=== PATIENT | male | born 1960 | race Caucasian/White ===

== ENCOUNTER 2016-09-14 12:30 | Emergency (ER) | payer OTHER ==
[~2016-09-14] VITALS: Ht 177.8 cm; Wt 90.5 kg
[~2016-09-14 12:30] MED LIST: ASPI81TA11 PO; ATOR20TA15 PO; CYMB60CA PO; DILA4TAB2 PO; KETO0.02 EACH EYE; LANTUS2P SQ; LOSA25TA PO; LYRI75CA PO; METO25TA3 PO; NOVOLOGP2 SQ; PANT40TA3 PO; VENL75CA44 PO; XARE15TA PO
[2016-09-14 12:35] VITALS: BP 156/83; PULSE 85; RESP 16; TEMP 98; O2SAT 98
[2016-09-14] MEDS ORDERED: MAGN400T2 PO (12:49)
[2016-09-14 13:02] LABS: BASOPHIL # 0.2 TH/MM3 (0-0.2); BASOPHIL % 2.3 % (0.0-2.0); EOSINOPHIL # 0.1 TH/MM3 (0-0.4); EOSINOPHIL % 1.8 % (0.0-4.0); HEMATOCRIT 43.6 % (39.0-51.0); HEMO FLAGS DIFF FINAL; LYMPHOCYTE # 1.7 TH/MM3 (1.0-4.8); MEAN CELL VOLUME 87.4 FL (80.0-100.0); MEAN CORPUSCULAR HEMOGLOBIN 29.5 PG (27.0-34.0); MEAN CORPUSCULAR HGB CONC 33.7 % (32.0-36.0); MONO % 8.5 % (0.0-8.0); NEUT % 64.4 % (16.0-70.0); PLATELET COUNT 182 TH/MM3 (150-450); RED BLOOD COUNT 4.99 MIL/MM3 (4.50-5.90); RED CELL DISTRIBUTION WIDTH 13.1 % (11.6-17.2); WHITE BLOOD COUNT 7.6 TH/MM3 (4.0-11.0)
--- NOTE | 2016-09-14 13:04 | PD ---
HPI Chief Complaint: Bleeding Time Seen by Provider: 12:41 Travel History International Travel<30 days: No Contact w/Intl Traveler<30days: No Traveled to known affect area: No History of Present Illness HPI This patient was recently hospitalized for PE. He was started on Xarelto about 2 weeks ago. Today when he coughed he noticed there was some blood mixed in the phlegm. He also noticed that there was a bit of bright red blood on the toilet paper when he wiped after a bowel movement. He has no prior history of bleeding in either area in the past. No shortness of breath or chest pain or syncope. Symptoms severity is mild to moderate. No alleviating factors. Duration one day PFSH Past Medical History Hx Anticoagulant Therapy: Yes Heart Rhythm Problems: No Cancer: No Cardiovascular Problems: Yes High Cholesterol: Yes Chest Pain: Yes Congestive Heart Failure: No COPD: Yes Cerebrovascular Accident: Yes Diabetes: Yes Patient Takes Glucophage: No Diminished Hearing: No Endocrine: Yes GERD: Yes Genitourinary: No Hypertension: Yes Immune Disorder: No Implanted Vascular Access Dvce: No Neurologic: Yes Psychiatric: No Reproductive: No Respiratory: Yes (PULMONARY EMBOLISM) Pneumonia: Yes Thyroid Disease: No Tetanus Vaccination: Unknown Past Surgical History Abdominal Surgery: No Cardiac Surgery: No Ear Surgery: No Endocrine Surgery: No Eye Surgery: Yes Genitourinary Surgery: No Gynecologic Surgery: No Neurologic Surgery: No Oral Surgery: Yes Thoracic Surgery: No Other Surgery: Yes Social History Alcohol Use: No (QUIT 05/2016) Tobacco Use: No Substance Use: No Allergies-Medications (Allergen,Severity, Reaction): Coded Allergies: No Known Allergies (Unverified , 09/14/16) Reported Meds & Prescriptions Reported Meds & Active Scripts Active Xarelto (Rivaroxaban) 15 Mg Tab 15 Mg PO BID Aspirin EC (Aspirin) 81 Mg Tabdr 81 Mg PO DAILY Reported Magnesium Oxide 400 Mg Tab 400 Mg PO DAILY Pantoprazole (Pantoprazole Sodium) 40 Mg Tab 40 Mg PO DAILY Losartan (Losartan Potassium) 25 Mg Tab 50 Mg PO DAILY Atorvastatin (Atorvastatin Calcium) 20 Mg Tab 20 Mg PO DAILY Lyrica (Pregabalin) 75 Mg Cap 75 Mg PO BID Venlafaxine ER 24 HR (Venlafaxine HCl) 75 Mg Cap 75 Mg PO TID Lantus Inj (Insulin Glargine) 1,000 Unit/10 Ml Vial 45 Units SQ BID Novolog Inj (Insulin Aspart) 1,000 Unit/10 Ml Vial 0 SQ DIRECTED Sliding Scale as directed. Metoprolol Tartrate 25 Mg Tab 25 Mg PO BID Review of Systems General / Constitutional: No: Fever Eyes: No: Visual changes HENT: No: Headaches Cardiovascular: No: Chest Pain or Discomfort Respiratory: Positive: Cough, Hemoptysis, No: Shortness of Breath Gastrointestinal: Positive: Hematochezia, No: Abdominal Pain Genitourinary: No: Dysuria Musculoskeletal: No: Pain Skin: No Rash Neurologic: No: Weakness Psychiatric: No: Depression Endocrine: No: Polydipsia Hematologic/Lymphatic: No: Easy Bruising Physical Exam Narrative GENERAL: Well-nourished, well-developed patient in no apparent distress. SKIN: Warm and dry. HEAD: Atraumatic. Normocephalic. EYES: Pupils equal and round. No scleral icterus. No injection or drainage. ENT: No nasal bleeding or discharge. Mucous membranes pink and moist. NECK: Trachea midline. No JVD. CARDIOVASCULAR: Regular rate and rhythm. No murmur appreciated. RESPIRATORY: No accessory muscle use. Clear to auscultation. Breath sounds equal bilaterally. GASTROINTESTINAL: Abdomen soft, non-tender, nondistended. Hepatic and splenic margins not palpable. MUSCULOSKELETAL: No obvious deformities. No clubbing. No cyanosis. No edema. NEUROLOGICAL: Awake and alert. No obvious cranial nerve deficits. Motor grossly within normal limits. Normal speech. PSYCHIATRIC: Appropriate mood and affect; insight and judgment normal. Rectal: No external hemorrhoid or fissure Data Data Last Documented VS Vital Signs Date Time Temp Pulse Resp B/P Pulse Ox O2 Delivery O2 Flow Rate FiO2 09/14/16 12:42 96 Nasal Cannula 2 09/14/16 12:35 98.0 85 16 156/83 Orders Iv Access Insert/Monitor (09/14/16 12:44) Complete Blood Count With Diff (09/14/16 12:44) Labs Laboratory Tests Test 09/14/16 13:00 White Blood Count 7.6 TH/MM3 Red Blood Count 4.99 MIL/MM3 Hemoglobin 14.7 GM/DL Hematocrit 43.6 % Mean Corpuscular Volume 87.4 FL Mean Corpuscular Hemoglobin 29.5 PG Mean Corpuscular Hemoglobin 33.7 % Concent Red Cell Distribution Width 13.1 % Platelet Count 182 TH/MM3 Mean Platelet Volume 8.7 FL Neutrophils (%) (Auto) 64.4 % Lymphocytes (%) (Auto) 23.0 % Monocytes (%) (Auto) 8.5 % Eosinophils (%) (Auto) 1.8 % Basophils (%) (Auto) 2.3 % Neutrophils # (Auto) 5.0 TH/MM3 Lymphocytes # (Auto) 1.7 TH/MM3 Monocytes # (Auto) 0.6 TH/MM3 Eosinophils # (Auto) 0.1 TH/MM3 Basophils # (Auto) 0.2 TH/MM3 CBC Comment DIFF FINAL Differential Comment MDM Medical Decision Making Medical Screen Exam Complete: Yes Emergency Medical Condition: Yes Medical Record Reviewed: Yes Differential Diagnosis Medication side effect, PE, bronchitis Narrative Course I have reviewed the patient's electronic medical record. Reviewed his admission history and physical and discharge summary from PE hospitalization 2 weeks ago. His hemoglobin was 15 at the time IV placed CBC is hemoglobin of 14.7 Patient looks clinically well and minimally symptomatic. This will come down to a risk benefit analysis with the patient needing blood thinners with bilateral PE and having some blood loss issue. Since his PE his upper and lower bilateral what sounds extensive I don't feel he should stop his blood thinner based on this minimal blood loss. Of course if it worsens that could change. He should [facility]up with [facility] to discuss this and any alternative medications they will want to try instead. However any blood thinners going to have the same risks. So he is stable and discharged and will continue his blood thinner for now but should his bleeding intensify that plan may change Diagnosis Primary Impression: Hemoptysis Additional Impression: Bilateral pulmonary embolism Additional Instructions: The patient was advised to follow up with their physician and return if they worsen. Discussed bleeding issues with their physician Med/Other Pt SpecificInfo: Other Disposition: DISCHARGE HOME Condition: Stable Adolfo Ta MD Sep 14, 2016 13:04
== END 2016-09-14 13:54 | disposition home or self-care (01) ==
LOC: PHED 12:30
DX: R04.2 Hemoptysis (principal); I26.99 Other pulmonary embolism without acute cor pulmonale; E78.00 Pure hypercholesterolemia, unspecified; E11.9 Type 2 diabetes mellitus without complications; I10 Essential (primary) hypertension; Z79.01 Long term (current) use of anticoagulants; Z79.4 Long term (current) use of insulin
CPT/HCPCS: 85025

== ENCOUNTER 2016-10-30 10:27 | Inpatient (IN) | payer OTHER ==
[~2016-10-30] VITALS: Ht 177.8 cm; Wt 77.0 kg
[2016-10-30] VITALS (12 sets, daily range): BP systolic 121–149; BP diastolic 60–84; PULSE 74–96; RESP 18–20; TEMP 97.7–98.5; O2SAT 80–100
[~2016-10-30 10:27] MED LIST changes: -CYMB60CA PO; -DILA4TAB2 PO; -KETO0.02 EACH EYE; +MAGN400T2 PO
[2016-10-30] MEDS ORDERED: SODIUM CHLORIDE 0.9% FLUSH 5 ML FLUSH IVF PRN (10:45)
[2016-10-30] MEDS ORDERED: RESP: ALBUTEROL 2.5 MG/IPRATROPIUM 0.5 MG NEB (SCH) INH ONE (10:45)
--- NOTE | 2016-10-30 10:55 | PD ---
HPI Chief Complaint: Respiratory Distress Time Seen by Provider: 10:40 Travel History International Travel<30 days: No Contact w/Intl Traveler<30days: No Traveled to known affect area: No History of Present Illness HPI A 55-year-old man who presents to the emergency department sent from the [facility] for shortness of breath. Patient has a history of pneumonia, PE, diabetes, kidney disease. He was well until July when he was admitted for pneumonia. Similar was readmitted for bilateral PEs. States he had been doing well 12 for 5 days ago and so he started getting chest pain, no cough productive of brownish and green sputum, and feeling more poorly. He had fevers and chills. Symptoms been worsening over the past 3-4 days. They're gradual in onset. He had worsening shortness of breath during this time as well. No leg swelling. He did have one to 2 episodes of vomiting. He went to the [facility] patient was sent to the emergency department for further evaluation. He is currently taking Xarelto for recent diagnosis of pulmonary emboli. No known history of lung disease but smoked for 30 years.-pack-year History Past Medical History Narrative Medical Hypertension PE, on Xarelto Hep C Diabetes Chronic kidney disease History of CVA with residual balance issues Hyperlipidemia History of extensive tobacco use Social History Alcohol Use: No (QUIT 05/2016) Tobacco Use: No Allergies-Medications (Allergen,Severity, Reaction): Coded Allergies: No Known Allergies (Unverified , 10/30/16) Reported Meds & Prescriptions Reported Meds & Active Scripts Active Xarelto (Rivaroxaban) 15 Mg Tab 15 Mg PO BID Aspirin EC (Aspirin) 81 Mg Tabdr 81 Mg PO DAILY Reported Magnesium Oxide 400 Mg Tab 400 Mg PO DAILY Pantoprazole (Pantoprazole Sodium) 40 Mg Tab 40 Mg PO DAILY Losartan (Losartan Potassium) 25 Mg Tab 50 Mg PO DAILY Atorvastatin (Atorvastatin Calcium) 20 Mg Tab 20 Mg PO DAILY Lyrica (Pregabalin) 75 Mg Cap 75 Mg PO BID Venlafaxine ER 24 HR (Venlafaxine HCl) 75 Mg Cap 75 Mg PO TID Lantus Inj (Insulin Glargine) 1,000 Unit/10 Ml Vial 45 Units SQ BID Novolog Inj (Insulin Aspart) 1,000 Unit/10 Ml Vial 0 SQ DIRECTED Sliding Scale as directed. Metoprolol Tartrate 25 Mg Tab 25 Mg PO BID Review of Systems Except as stated in HPI: all other systems reviewed are Neg Physical Exam Narrative GENERAL: Well-appearing 55-year-old man, little bit labored in his breathing, nontoxic appearing. SKIN: Warm and dry. NECK: Trachea midline. No JVD. CARDIOVASCULAR: Regular rate and rhythm. No murmur appreciated. RESPIRATORY: Coarse wet rhonchi throughout the posterior lung staley. No real wheezing. GASTROINTESTINAL: Abdomen soft, non-tender, nondistended. Hepatic and splenic margins not palpable. MUSCULOSKELETAL: No obvious deformities. Clubbing of his fingernails. No significant edema in his legs. NEUROLOGICAL: Awake and alert. No obvious cranial nerve deficits. Motor grossly within normal limits. Normal speech. PSYCHIATRIC: Appropriate mood and affect; insight and judgment normal. Data Data Last Documented VS Vital Signs Date Time Temp Pulse Resp B/P Pulse Ox O2 Delivery O2 Flow Rate FiO2 10/30/16 11:10 100 Nasal Cannula 4 10/30/16 10:40 74 18 10/30/16 10:32 97.7 Orders Complete Blood Count With Diff (10/30/16 10:41) Comprehensive Metabolic Panel (10/30/16 10:41) B-Type Natriuretic Peptide (10/30/16 10:41) Act Partial Throm Time (Ptt) (10/30/16 10:41) Prothrombin Time / Inr (Pt) (10/30/16 10:41) Troponin I (10/30/16 10:41) Influenzae A/B Antigen (10/30/16 10:41) Blood Culture (10/30/16 10:41) Iv Access Insert/Monitor (10/30/16 10:41) Electrocardiogram (10/30/16 10:41) Ecg Monitoring (10/30/16 10:41) Oximetry (10/30/16 10:41) Oxygen Administration (10/30/16 10:41) Sodium Chloride 0.9% Flush (Ns Flush) (10/30/16 10:45) Albuterol-Ipratropium Neb (Duoneb Neb) (10/30/16 10:45) Lactic Acid Sepsis Protocol (10/30/16 10:41) Chest, Single Ap (10/30/16 ) Ceftriaxone Inj (Rocephin Inj) (10/30/16 13:15) Azithromycin Inj (Zithromax Inj) (10/30/16 13:15) Furosemide Inj (Lasix Inj) (10/30/16 13:15) Ketorolac Inj (Toradol Inj) (10/30/16 13:30) Labs Laboratory Tests Test 10/30/16 10/30/16 10:45 13:13 Prothrombin Time 11.7 SEC Prothromb Time International 1.1 RATIO Ratio Activated Partial 36.4 SEC Thromboplast Time Sodium Level 136 MEQ/L Potassium Level 4.3 MEQ/L Chloride Level 99 MEQ/L Carbon Dioxide Level 29.8 MEQ/L Anion Gap 7 MEQ/L Blood Urea Nitrogen 23 MG/DL Creatinine 1.17 MG/DL Estimat Glomerular Filtration 64 ML/MIN Rate Random Glucose 161 MG/DL Lactic Acid Level 2.0 mmol/L Calcium Level 8.0 MG/DL Total Bilirubin 0.6 MG/DL Aspartate Amino Transf 17 U/L (AST/SGOT) Alanine Aminotransferase 19 U/L (ALT/SGPT) Alkaline Phosphatase 70 U/L Troponin I 0.48 NG/ML B-Type Natriuretic Peptide 112 PG/ML Total Protein 6.5 GM/DL Albumin 2.8 GM/DL White Blood Count 4.8 TH/MM3 Red Blood Count 4.58 MIL/MM3 Hemoglobin 13.2 GM/DL Hematocrit 40.0 % Mean Corpuscular Volume 87.3 FL Mean Corpuscular Hemoglobin 28.9 PG Mean Corpuscular Hemoglobin 33.1 % Concent Red Cell Distribution Width 14.7 % Platelet Count 120 TH/MM3 Mean Platelet Volume 9.7 FL Neutrophils (%) (Auto) 72.1 % Lymphocytes (%) (Auto) 14.0 % Monocytes (%) (Auto) 11.3 % Eosinophils (%) (Auto) 2.1 % Basophils (%) (Auto) 0.5 % Neutrophils # (Auto) 3.5 TH/MM3 Lymphocytes # (Auto) 0.7 TH/MM3 Monocytes # (Auto) 0.5 TH/MM3 Eosinophils # (Auto) 0.1 TH/MM3 Basophils # (Auto) 0.0 TH/MM3 CBC Comment DIFF FINAL Differential Comment MDM Medical Decision Making Medical Screen Exam Complete: Yes Emergency Medical Condition: Yes Interpretation(s) My review of EKG: Sinus rhythm at a rate of 73, normal axis, lateral T wave inversions, no definite evidence of acute ischemia. LABS: CBC INR 1.1 CMP generally unremarkable. Troponin 0.48 BNP 112 Lactate 2.0 CXR: Left lower lobe pneumonia Differential Diagnosis Pneumonia, underlying lung disease or COPD, PE, other Narrative Course Medical decision making INITIAL: 55-year-old man with chest pain productive cough fevers chills suggestive of pneumonia. Increased shortness of rale hypoxia likely pneumonia with him, and a known PE. He's on his Xarelto. We'll check labs, x-ray, cultures, bronchodilator, reassess. Diagnosis Primary Impression: Pneumonia Qualified Code: J18.1 - Pneumonia of left lower lobe due to infectious organism Garett Perry MD Oct 30, 2016 10:54
[2016-10-30 11:16] LABS: APTT (PATIENT) 36.4 SEC (24.3-30.1); INTERNATIONAL NORMALIZED RATIO 1.1 RATIO; PROTHROMBIN TIME - PATIENT 11.7 SEC (9.8-11.6)
[2016-10-30 11:25] LABS: ANION GAP 7 MEQ/L (5-15); AST (GOT) 17 U/L (15-37); BICARBONATE 29.8 MEQ/L (21.0-32.0); BLOOD UREA NITROGEN 23 MG/DL (7-18); CHLORIDE 99 MEQ/L (98-107); GLOMERULAR FILTRATION RATE 64 ML/MIN (>89); POTASSIUM 4.3 MEQ/L (3.5-5.1); SODIUM (NA) 136 MEQ/L (136-145)
[2016-10-30 11:29] LABS: ALKALINE PHOSPHATASE 70 U/L (45-117); ALT (GPT) 19 U/L (12-78); TOTAL BILIRUBIN ADULT 0.6 MG/DL (0.2-1.0)
--- NOTE | 2016-10-30 13:12 | RADRPT ---
EXAM DATE/TIME: 10/30/2016 11:19 [facility] COMPARISON: Prior study 08/02/16, use for comparison. INDICATIONS: Shortness of breath. MEDICAL HISTORY: Hypertension. Pulmonary embolism SURGICAL HISTORY: None. ENCOUNTER: Initial ACUITY: 4 - 6 days PAIN SCORE: 3/10 LOCATION: Bilateral chest FINDINGS: A single view of the chest demonstrates previous left clavicular fracture fixation. There is scleros is left humeral head consistent with avascular necrosis. There is perihilar vascular congestion wors e since the August exam. There is no focal infiltrate or pneumothorax. CONCLUSION: Definite pulmonary vascular congestion worse since August 2016. Garett Layton MD on October 30, 2016 at 12:58 Board Certified Radiologist. This report was verified electronically.
[2016-10-30] MEDS ORDERED: cefTRIAXone INJ 1,000 MG in SODIUM CHLORIDE 0.9% INJ 100 ML IV ONE (13:15)
[2016-10-30] MEDS ORDERED: AZITHROMYCIN INJ 500 MG in SODIUM CHLOR 0.9% 250 ML INJ 250 ML IV ONE (13:15)
[2016-10-30] MEDS ORDERED: FUROSEMIDE 20 MG/2 ML VIAL IV PUSH ONE (13:15)
[2016-10-30] MEDS ORDERED: KETOROLAC TROMETHAMINE 30 MG/ML (IVP) VIAL IVP ONE (13:30)
[2016-10-30 13:34] LABS: AUTOMATED NEUTROPHIL # 3.5 TH/MM3 (1.8-7.7); BASOPHIL % 0.5 % (0.0-2.0); EOSINOPHIL # 0.1 TH/MM3 (0-0.4); EOSINOPHIL % 2.1 % (0.0-4.0); HEMO FLAGS DIFF FINAL; LYMPHOCYTE # 0.7 TH/MM3 (1.0-4.8); MEAN CELL VOLUME 87.3 FL (80.0-100.0); MEAN CORPUSCULAR HEMOGLOBIN 28.9 PG (27.0-34.0); MEAN CORPUSCULAR HGB CONC 33.1 % (32.0-36.0); MONO % 11.3 % (0.0-8.0); NEUT % 72.1 % (16.0-70.0); PLATELET COUNT 120 TH/MM3 (150-450); RED BLOOD COUNT 4.58 MIL/MM3 (4.50-5.90); RED CELL DISTRIBUTION WIDTH 14.7 % (11.6-17.2); WHITE BLOOD COUNT 4.8 TH/MM3 (4.0-11.0)
[2016-10-30] MEDS ORDERED: SODIUM CHLOR 0.9% 1000 ML INJ 1,000 ML IV SCH (14:27)
[2016-10-30] MEDS ORDERED: SODIUM CHLORIDE 0.9% FLUSH 5 ML FLUSH FLUSH PRN (14:30)
[2016-10-30] MEDS ORDERED: NALOXONE HCL 0.4 MG/ML AMP IV PRN (14:30)
[2016-10-30] MEDS ORDERED: VANCOMYCIN INJ 1,000 MG in SODIUM CHLOR 0.9% 250 ML INJ 250 ML IV SCH (14:30)
[2016-10-30] MEDS: DOCUSATE SODIUM 100 MG CAP PO SCH (14:30)
[2016-10-30] MEDS ORDERED: BISACODYL 10 MG SUPP PR PRN (14:30)
[2016-10-30] MEDS ORDERED: DEXTROSE 50% IN WATER 50 ML VIAL(D50) IV PUSH PRN (14:30)
[2016-10-30] MEDS ORDERED: PIPERACIL-TAZO 3.375 GM PREMIX 50 ML IV SCH (14:30)
[2016-10-30] MEDS ORDERED: GLUCAGON 1 MG/ML VIAL OTHER PRN (14:30)
[2016-10-30] MEDS ORDERED: Vancomycin Consult Pharmacy 1 EA OTHER SCH (14:30)
--- NOTE | 2016-10-30 14:57 | RADRPT ---
EXAM DATE/TIME: 10/30/2016 14:47 [facility] COMPARISON: No previous studies available for comparison. INDICATIONS : Patient has been constipated for one week and has felt bloated. MEDICAL HISTORY : Hypertension. Chronic obstructive pulmonary disease. Hypercholesterolemia. SURGICAL HISTORY : None. ENCOUNTER: Initial ACUITY: 1 week PAIN SCORE: 5/10 LOCATION: Abdomen. FINDINGS: Supine view of the abdomen was performed. The abdominal bowel gas pattern is normal. No abnormal ma sses, calcifications, or organomegaly is seen. The osseous structures are unremarkable. CONCLUSION: Normal examination. Bony prominence of the right pubic symphysis Garett Layton MD on October 30, 2016 at 14:56 Board Certified Radiologist. This report was verified electronically.
[2016-10-30] MEDS ORDERED: IOHEXOL 350 MG/ML 10 ML VIAL (for RAD DIAG) IV ONE (15:04)
--- NOTE | 2016-10-30 15:04 | HHI.HP ---
[facility] Ad[facility] Diagnosis pulmonary edema, pneumonia, rule out PE Diagnoses: Chief Complaint: Cough and chest pain Travel History International Travel<30 Days: No Contact w/Intl Traveler <30 Da: No Traveled to Known Affected Are: No History of Present Illness This is a 55-year-old male with a clinical history which includes hypertension, diabetes with diabetic neuropathy, hyperlipidemia, carpal tunnel syndrome, recent pneumonia August 2016 and recent pulmonary embolism August 2016. Patient persists emergency department today with reports of congestion and cough which began gradually on Saturday night into Saturday. Cough is productive of yellow/green sputum. Patient reports he believes he's had subjective fevers on Saturday but does not have a thermometer at home. Patient reports that he has left lower chest pain worse with coughing. Patient also has midsternal chest pain described as a ice pick sensation at rest and with cough. Patient does report diaphoresis, nausea and denies sweats with these symptoms. Patient reports he is fatigued more easily over the past few days and does report slight dizziness with standing or changing positions rapidly. Patient did have musculoskeletal pain with palpation of chest. Patient noted he lives alone and his by mouth intake is, "not that great ." Patient cannot remember the last bowel movement and does note abdominal distention/bloating. Chest x-ray upon arrival to the emergency department reveals ulnar vascular congestion worse since August 2017 since consistent with pneumonia. Review of Systems Except as stated in HPI: all other systems reviewed are Neg Past Family Social History Past Medical History Hypertension Diabetes with diabetic neuropathy Hyperlipidemia Likely COPDwith history of smoking for at least 30 years. Stated he quit 10 months ago. CVAwith residual left-sided weakness Carpal tunnel syndrome Past Surgical History Left rotator cuff and shoulder surgery Left hip surgery Reported Medications Xarelto (Rivaroxaban) 15 Mg Tab 15 Mg PO BID Aspirin EC (Aspirin) 81 Mg Tabdr 81 Mg PO DAILY Magnesium Oxide 400 Mg Tab 400 Mg PO DAILY Pantoprazole (Pantoprazole Sodium) 40 Mg Tab 40 Mg PO DAILY Losartan (Losartan Potassium) 25 Mg Tab 50 Mg PO DAILY Atorvastatin (Atorvastatin Calcium) 20 Mg Tab 20 Mg PO DAILY Lyrica (Pregabalin) 75 Mg Cap 75 Mg PO BID Venlafaxine ER 24 HR (Venlafaxine HCl) 75 Mg Cap 75 Mg PO TID Lantus Inj (Insulin Glargine) 1,000 Unit/10 Ml Vial 45 Units SQ BID Novolog Inj (Insulin Aspart) 1,000 Unit/10 Ml Vial 0 SQ DIRECTED Sliding Scale as directed. Metoprolol Tartrate 25 Mg Tab 25 Mg PO BID Allergies: Coded Allergies: No Known Allergies (Unverified , 10/30/16) Active Ordered Medications Current Medications Medications (Trade) Dose Ordered Sig/Dario Route Start Time Stop Time Status Last Admin (NS Flush) 2 ml UNSCH PRN IVF 10/30/16 10:45 (Ecotrin Ec) 81 mg DAILY PO 10/31/16 09:00 (Lipitor) 20 mg DAILY PO 10/31/16 09:00 (Mag-Ox) 400 mg DAILY PO 10/31/16 09:00 (Protonix) 40 mg DAILY PO 10/31/16 09:00 (Lyrica) 75 mg BID PO 10/30/16 21:00 (Xarelto) 15 mg BID PO 10/30/16 21:00 (Effexor Xr) 75 mg TID PO 10/30/16 18:00 UNV (Cozaar) 25 mg DAILY PO 10/31/16 09:00 (Lopressor) 12.5 mg Q12HR PO 10/30/16 21:00 (D50w (Vial) Inj) 25 ml UNSCH PRN IV PUSH 10/30/16 14:30 (Glucagon Inj) 1 mg UNSCH PRN OTHER 10/30/16 14:30 Family History Several family members with diabetes Brother with prostate cancer Social History Used to smoke cigarettes and quit about 10 months ago. Stated he smoked for more than 30 years most of his life. Denies any alcohol abuse. Stated he quit in 2010. Denies any drug abuse Physical Exam Vital Signs Vital Signs Date Time Temp Pulse Resp B/P Pulse Ox O2 Delivery O2 Flow Rate FiO2 10/30/16 14:28 86 18 121/60 94 Nasal Cannula 4 10/30/16 14:18 18 10/30/16 11:10 100 Nasal Cannula 4 10/30/16 11:10 93 Nasal Cannula 4 10/30/16 11:03 97 Nasal Cannula 3.00 10/30/16 10:40 74 18 93 Nasal Cannula 4 10/30/16 10:32 97.7 74 18 90 Physical Exam GENERAL: This is a well-nourished, well-developed patient, in no apparent distress. SKIN: No rashes, ecchymoses or lesions. Cool and dry. HEAD: Atraumatic. Normocephalic. No temporal or scalp tenderness. EYES: Extraocular motions intact. No scleral icterus. No injection or drainage. CARDIOVASCULAR: Regular rate and rhythm without murmurs, gallops, or rubs. RESPIRATORY: Bilateral basilar crackles GASTROINTESTINAL: Abdomen soft, mild tender to palpation moistly in the LLQ, distended. MUSCULOSKELETAL: Extremities without clubbing, cyanosis, or edema. No joint tenderness, effusion, or edema noted. No calf tenderness. Negative Homans sign bilaterally. NEUROLOGICAL: Awake and alert. No focal deficits. Motor and sensory grossly within normal limits. Five out of 5 muscle strength in all muscle groups. Normal speech. Laboratory Laboratory Tests Test 10/30/16 10/30/16 10:45 13:13 Prothrombin Time 11.7 Prothromb Time International 1.1 Ratio Activated Partial 36.4 Thromboplast Time Sodium Level 136 Potassium Level 4.3 Chloride Level 99 Carbon Dioxide Level 29.8 Anion Gap 7 Blood Urea Nitrogen 23 Creatinine 1.17 Estimat Glomerular Filtration 64 Rate Random Glucose 161 Lactic Acid Level 2.0 Calcium Level 8.0 Total Bilirubin 0.6 Aspartate Amino Transf 17 (AST/SGOT) Alanine Aminotransferase 19 (ALT/SGPT) Alkaline Phosphatase 70 Troponin I 0.48 B-Type Natriuretic Peptide 112 Total Protein 6.5 Albumin 2.8 White Blood Count 4.8 Red Blood Count 4.58 Hemoglobin 13.2 Hematocrit 40.0 Mean Corpuscular Volume 87.3 Mean Corpuscular Hemoglobin 28.9 Mean Corpuscular Hemoglobin 33.1 Concent Red Cell Distribution Width 14.7 Platelet Count 120 Mean Platelet Volume 9.7 Neutrophils (%) (Auto) 72.1 Lymphocytes (%) (Auto) 14.0 Monocytes (%) (Auto) 11.3 Eosinophils (%) (Auto) 2.1 Basophils (%) (Auto) 0.5 Neutrophils # (Auto) 3.5 Lymphocytes # (Auto) 0.7 Monocytes # (Auto) 0.5 Eosinophils # (Auto) 0.1 Basophils # (Auto) 0.0 CBC Comment DIFF FINAL Differential Comment Date/Time Procedure Status Source Growth 10/30/16 10:47 Influenza Types A,B Antigen (GUANACO) - Final Complete Nasal Washing NEGATIVE FOR FLU A AND B ANTIGEN.... 10/30/16 10:45 Aerobic Blood Culture Received Blood Peripheral Pending 10/30/16 10:45 Anaerobic Blood Culture Received Blood Peripheral Pending Result Diagram: 10/30/16 1313 10/30/16 1045 Imaging Last Impressions Chest X-Ray 10/30/16 0000 Signed Impressions: Service Date/Time: Sunday, October 30, 2016 11:19 - CONCLUSION: Definite pulmonary vascular congestion worse since August 2016. Garett Layton MD Assessment and Plan Assessment and Plan This is a 55-year-old male with a clinical history which includes hypertension, diabetes with diabetic neuropathy, hyperlipidemia, carpal tunnel syndrome, recent pneumonia August 2016 and recent pulmonary embolism August 2016. Patient presents to emergency department today with reports of congestion and cough which began gradually on Saturday night into Saturday. Patient reports he believes he's had subjective fevers on Saturday but does not have a thermometer at home. Patient reports that he has left lower chest pain worse with coughing. Patient also has midsternal chest pain described as a ice pick sensation at rest and with cough. Chest x-ray upon arrival to the emergency department reveals ulnar vascular congestion worse since August 2017 since consistent with pneumonia. Patient also had elevated troponin mildly elevated troponin 0.48 Pneumonia The patient was given Rocephin and azithromycin in the emergency department. CT showed left upper airspace disease. - will start vancomycin and Zosyn with pharmacy consulted to dose vancomycin as he was recently hospitalized with pneumonia. - Sputum culture ordered and pending. Follow blood culture data. - Duonebs every 6 hours while awake and as needed. - antitussives as needed. Chest pain with mildly elevated troponin Troponin elevated at 0.58- possibly demand ischemia in the setting of pneumonia. The pt has had elevated trops in the past s/t pneumonia. EKG reveals sinus rhythm with inverted T waves in V6 and slight ST depression. Recent cardiac echocardiogram 08/29/2016 shows EF 55-60%. - Serial troponins. - Continuous telemetry. - cardiology consult pending. Diabetes mellitus insulin-dependent Patient takes Lantus 45 units twice a day at home. Hemoglobin A1c 08/03/2016 9.3% . - will decrease to Levemir 25 units twice a day. - Accu-Cheks before meals at bedtime with low-dose sliding scale insulin coverage. Hypertension Patient reports his blood pressure at home has been running low systolic of 100 and recently had his blood pressure medication increased. - Will restart losartan 25 mg daily and metoprolol at 12.5 mg twice a day. - Monitor vital signs. History of pulmonary venous embolism CTA negative for PE. - continue Xarelto. DVT prophylaxis patient is on Xarelto Discussed with ER provider, RN and patient Written by Mirian Thompson, acting as scribe for Dr. Nick on 10/30/16 at 14:55. Physician Certification 2 Midnight Certification Type: Admission for Inpatient Services Order for Inpatient Services The services are ordered in accordance with Medicare regulations or non- Medicare payer requirements, as applicable. In the case of services not specified as inpatient-only, they are appropriately provided as inpatient services in accordance with the 2-midnight benchmark. Estimated LOS (days): 4 days is the estimated time the patient will need to remain in the hospital, assuming treatment plan goals are met and no additional complications. Post-Hospital Plan: Home Notes: The documentation accurately reflects the work performed [id number] by me on at 14:55. Mirian Thompson Oct 30, 2016 15:04 Samir Nick DO Oct 30, 2016 18:15
--- NOTE | 2016-10-30 15:09 | RADRPT ---
EXAM DATE/TIME: 10/30/2016 14:54 [facility] COMPARISON: CT PULMONARY ANGIOGRAM, August 28, 2016, 11:05. INDICATIONS : Shortness of breath and chest pain with cough. IV CONTRAST: 80 cc Omnipaque 350 (iohexol) IV RADIATION DOSE: 23.24 CTDIvol (mGy) MEDICAL HISTORY : Cardiovascular disease. Cerebrovascular disease. Hypertension. SURGICAL HISTORY : None. ENCOUNTER: Initial ACUITY: 4 - 6 days PAIN SCALE: 5/10 LOCATION: chest TECHNIQUE: Volumetric scanning of the chest was performed using a pulmonary embolism protocol MIP images were re constructed. Using automated exposure control and adjustment of the mA and/or kV according to patien t size, radiation dose was kept as low as reasonably achievable to obtain optimal diagnostic quality images. FINDINGS: PULMONARY ARTERIES: No filling defects are seen in the pulmonary arteries through the segmental level. LUNGS: There is an infiltrate in the left upper lobe, possible pneumonia. PLEURAE: There is no pleural thickening or pleural effusion. MEDIASTINUM: There is good visualization of the great vessels of the middle mediastinum. No evidence of mediastin al or hilar adenopathy/mass. MUSCULOSKELETAL: Within normal limits for patient age. MISCELLANEOUS: The visualized upper abdominal organs demonstrate no acute abnormality. CONCLUSION: The multiple pulmonary emboli seen in August have completely resolved. I don't see any residual emb tony on today's exam. There is new airspace disease in the left upper lobe possible pneumonia. Garett Layton MD on October 30, 2016 at 15:07 Board Certified Radiologist. This report was verified electronically.
[2016-10-30] MEDS: PIPERACIL-TAZO 4.5 GM PREMIX 100 ML IV SCH ×2 (16:45→23:05)
[2016-10-30] MEDS: VANCOMYCIN INJ 1,250 MG in SODIUM CHLOR 0.9% 250 ML INJ 250 ML IV SCH (17:56)
[2016-10-30] MEDS: INSULIN ASPART SUPPLEMENTAL SCALE SQ SCH ×2 (17:58→23:09)
[2016-10-30] MEDS: guaiFENesin/CODEINE SYRUP 200 MG/20 MG/10 ML CUP PO PRN (18:31)
[2016-10-30] MEDS: RESP: ALBUTEROL 2.5 MG/IPRATROPIUM 0.5 MG NEB (SCH) NEB (20:22)
[2016-10-30] MEDS: INSULIN DETEMIR 100 UNITS/ML VIAL SQ SCH (23:05)
[2016-10-30] MEDS: SODIUM CHLORIDE 0.9% FLUSH 5 ML FLUSH FLUSH SCH (23:05)
[2016-10-30] MEDS: METOPROLOL TARTRATE 25 MG TAB PO SCH (23:06)
[2016-10-30] MEDS: RIVAROXABAN 15 MG TAB PO SCH (23:06)
[2016-10-30] MEDS: PREGABALIN 75 MG CAP PO SCH (23:06)
[2016-10-30] MEDS: RESP: ALBUTEROL 2.5 MG/IPRATROPIUM 0.5 MG NEB (PRN) NEB (23:39)
[2016-10-31] VITALS (17 sets, daily range): BP systolic 112–162; BP diastolic 60–83; PULSE 78–101; RESP 21–33; TEMP 97.8–102; O2SAT 90–98
[2016-10-31] MEDS ORDERED: FUROSEMIDE 40 MG/4 ML VIAL IV PUSH ONE ×2 (00:15→01:15)
[2016-10-31] MEDS ORDERED: FUROSEMIDE 40 MG/4 ML VIAL ONE (00:16)
[2016-10-31 00:40] LABS: BLOOD GAS CARBOXYHEMOGLOBIN 2.4 % (0-4); BLOOD GAS HCO3 25 mmol/L (22-26); BLOOD GAS METHEMOGLOBIN 2.1 % (0-2); BLOOD GAS O2 HGB SATURATION 88 % (90-100); BLOOD GAS OXYGEN CONTENT 17.7 Vol % (12.0-20.0); BLOOD GAS PCO2 45 mmHg (38-42); BLOOD GAS PO2 67 mmHG (61-120); BLOOD GAS TOTAL HGB 14.2 G/DL (12.0-16.0); TEMP CORR TO 98.6
[2016-10-31 00:42] LABS: CRITICAL VALUE YES
[2016-10-31 00:43] LABS: DRAW SITE RT RADIAL; NUMBER OF ARTERIAL PUNCTURES 1; STAT YES; ULNAR PULSE PRESENT
--- NOTE | 2016-10-31 00:47 | HHI.FPPN ---
Addendum to progress note ADDENDUM Reason for addendum: Additonal documentation Additional information BEAR NOTE Subjective: Call center notified team of [facility] at 12:20pm. Dr. Augustin and Dr. Horowitz reported to bedside where Bear nurse and Floor nurse working to stabilize patient. [facility] called for increased work of breathing and desaturation to 80% after patient was walking around hallway. Admitted earlier today for PNA and PE rule out. 55 year-old male with PMHx significant for COPD, DM2, HTN, and history of bilateral pulmonary embolism, on Xarelto. When team reported to beside, pt satting 91% of 7L non-rebreather after oxygen support and breathing treatment by respiratory x1. Complaining of L-sided costal margin pain, worse with inspiration, there prior to admission. Denies chest pain, palpitations, confusion, leg pain. Objective: Vitals: Pulse 112. B/P 180/80. O2 91% on non-rebreather 7L. GEN: Adult male in mild respiratory distress. Appeared anxious about blood work. Speaking coherently in full sentences. HEENT: Facial mask in place. EOMI. CV: Tachycardic. No murmurs RESP: Difficult to appreciate lung sounds. Lung sounds present bilaterally. No wheezing or rales. GI: Non-focal tenderness to palpation RUQ. +BS. MSK: Moves all limbs against gravity. NEURO: AAO to year/month/date, state. Speaking in coherent sentences. No focal sensory or motor deficits. Assessment/Plan 55 year-old male with COPD, DM2, HTN, and history of bilateral pulmonary embolism, on Xarelto, hospitalized earlier today with PNA and elevated troponin. [facility] called for increased work of breathing and hypoxia after walking around hallway at further distance than recommended by nursing staff. Responded appropriately to treatment with non-rebreather at 7L with increased O2 from 8- => 91%. Was given breathing treatment. Blood glucose 239. Differential: Hypoxia secondary to PNA vs COPD exacerbation vs CHF exacerbation vs PE. -CXR, ABG pending, already ordered by Bear nurse -Primary Team Contacted, verbally requested Lasix, continued monitoring, transition to BIPAP if no improvement in tachycardia, hypertension, and pulse oximetry -Patient was stable when team left floor -Will defer follow up of labs and patient care to Primary Team SDW: Justine Watts MD R1 Oct 31, 2016 00:47
--- NOTE | 2016-10-31 00:50 | RADRPT ---
EXAM DATE/TIME: 10/31/2016 00:29 [facility] COMPARISON: CHEST SINGLE AP, October 30, 2016, 11:19. INDICATIONS : Shortness of breath. MEDICAL HISTORY : Cardiovascular disease. Cerebrovascular disease. Hypertension. SURGICAL HISTORY : None. ENCOUNTER: Subsequent ACUITY: 1 week PAIN SCORE: 0/10 LOCATION: Bilateral chest FINDINGS: There is ill-defined airspace disease in the lungs, left greater than right. Finding is most characte ristic of a bronchopneumonia. No significant change from October 30. No effusion. No pneumothorax. P revious plate and screw fixation left clavicle. CONCLUSION: 1. Ill-defined airspace disease predominantly on the left side characteristic of bronchopneumonia. Fi ndings similar to October 30. Moy Pederson MD on October 31, 2016 at 0:45 Board Certified Radiologist. This report was verified electronically.
--- NOTE | 2016-10-31 00:58 | HHI.PR ---
Addendum to Inpatient Note Addendum Reason: Additional Documentation Additional Information Rapid response was called at around midnight on this patient because patient was in acute respiratory distress. Nurse reported to me that patient was feeling well initially and wondered to walk around the unit. After he walked around for a few minutes and returned back to his room, he immediately became short of breath. Patient was also given nebulizer treatments by respiratory therapist at that time without much improvement. Patient also was placed on 50% Ventimask and she was saturating only about 90% of that time. However patient was still joking around and talking to staff members and was able to complete sentences. Therefore I had reviewed his chart. Patient with pulmonary edema, recent history of pulmonary embolism bilaterally in August though repeat CT revealed resolution, currently being treated for pneumonia. I have therefore told nursing staff to put patient on BiPAP and also to give Lasix 40 mg IV. Chest x-ray stat was also ordered at that time. Came to see patient at around 1 AM. Patient is awake, alert, oriented. On nonrebreather. Saturating about 95%. He however does have increased work of breathing. He is able to complete sentences. He is diaphoretic. But again, I do know this patient from his prior hospitalization in July 2016. He is somebody who gets diaphoretic quite a bit. He confirms this as well. He denies any chest pains. He denies any abdominal pain. Denies nausea/ vomiting/diarrhea. He was urinating by his urinal. About 200 cc in it. On exam, her heart rate is regular, no murmur appreciated. Lungs sounds still sounded congested with bilateral rales at the bases. Abdomen is distended, nontender. Suprapubic tenderness and distention noted as well despite patient's spontaneous making urine and urine out. I suspect he is retaining. Bilateral lower extremities did not reveal any edema. Impression: Acute respiratory distresslikely due to mild fluid overload. However possibly made worse by urinary retention as well. Pneumonia Recent pulmonary embolismresolved on CT imaging Chronic anticoagulation on Xarelto Elevated troponinwith initial complaint of chest pain on admission. Currently chest pain-free. Diabetes Hypertension Plan: Transfer patient to ICU stat ABG stat was done. Personally reviewed. No significant CO2 retention. Hypoxia present with O2 sat of 88% on nonrebreather. Chest x-ray stat done. Personally reviewed. Left lower lobe infiltrate. Venous congestion noted in my reviewed though not commented by radiologist. Patient was given Lasix 40 mg IV. He has diuresed about 200-300 cc. Since he was not improving, give another 40 mg Lasix IV. Placed patient on BiPAP. Again, I did strongly suspect that patient was retaining urine although he was voiding. Therefore I had asked for bladder scan. Bladder scan showed 500 cc at least of urine. Cuellar catheter ordered. After the above treatment, patient is much more improved with respiratory status. Continue vancomycin and Zosyn per creatinine clearance and levels for treatment of pneumonia. I was later called by patient's nurse in the morning because patient was also spiking fever. Blood cultures were already drawn in the past 24 hours. Added on UA/urine culture. Cooling blankets. Tylenol to control fever. Critical care time 30 minutes Emiliano Andersen MD Oct 31, 2016 00:58
[2016-10-31] MEDS: ACETAMINOPHEN 325 MG TAB PO PRN (01:47)
[2016-10-31] MEDS: PIPERACIL-TAZO 4.5 GM PREMIX 100 ML IV SCH ×4 (01:47→20:07)
[2016-10-31] MEDS: DOCUSATE SODIUM 100 MG CAP PO SCH ×3 (01:47→23:18)
[2016-10-31] MEDS: HYDROmorphone HCL PF 1 MG/ML VIAL IV PUSH PRN ×3 (05:09→20:09)
[2016-10-31] MEDS: VANCOMYCIN INJ 1,250 MG in SODIUM CHLOR 0.9% 250 ML INJ 250 ML IV SCH ×2 (05:09→16:03)
[2016-10-31 05:18] LABS: AUTOMATED NEUTROPHIL # 3.4 TH/MM3 (1.8-7.7); BASOPHIL % 0.5 % (0.0-2.0); EOSINOPHIL # 0.1 TH/MM3 (0-0.4); EOSINOPHIL % 1.9 % (0.0-4.0); HEMATOCRIT 40.3 % (39.0-51.0); HEMO FLAGS DIFF FINAL; LYMPH % 15.1 % (9.0-44.0); LYMPHOCYTE # 0.7 TH/MM3 (1.0-4.8); MEAN CELL VOLUME 87.9 FL (80.0-100.0); MEAN CORPUSCULAR HEMOGLOBIN 29.3 PG (27.0-34.0); MEAN CORPUSCULAR HGB CONC 33.3 % (32.0-36.0); MONO % 11.1 % (0.0-8.0); NEUT % 71.4 % (16.0-70.0); PLATELET COUNT 132 TH/MM3 (150-450); RED BLOOD COUNT 4.59 MIL/MM3 (4.50-5.90); RED CELL DISTRIBUTION WIDTH 15.1 % (11.6-17.2); WHITE BLOOD COUNT 4.7 TH/MM3 (4.0-11.0)
[2016-10-31 05:32] LABS: BICARBONATE 31.1 MEQ/L (21.0-32.0); POTASSIUM 4.2 MEQ/L (3.5-5.1)
[2016-10-31] MEDS: INSULIN ASPART SUPPLEMENTAL SCALE SQ SCH ×4 (05:47→20:10)
[2016-10-31] MEDS: RESP: ALBUTEROL 2.5 MG/IPRATROPIUM 0.5 MG NEB (SCH) NEB ×3 (07:14→19:38)
[2016-10-31 07:21] LABS: BACTERIA, URINE RARE /hpf; BLOOD, URINE TRACE (NEG); COMMENT (UR) CULT NOT INDICATED; CULTURE IF INDICATED CULT NOT INDICATED; GLUCOSE,URINE NEG (NEG); KETONE, URINE NEG (NEG); NITRITE,URINE NEG (NEG); SQUAMOUS EPITHELIAL CELL URINE <1 /hpf (0-5); URINE COLOR LIGHT-YELLOW (YELLW/STRAW)
--- NOTE | 2016-10-31 08:04 | PD.CONS ---
HPI Service CV Consult Requested By Reason for Consult chest pain Primary Care Physician [facility] History of Present Illness Here with hypertension, diabetes with diabetic neuropathy, hyperlipidemia, recent pneumonia and pulmonary embolism August 2016. He was admitted for pneumonia with shortness of breath, fever, cough and congestion that started last Saturday, He also c/o midsternal chest pain described as a ice pick sensation at rest and with cough. He denies any associated diaphoresis, nausea and denies sweats with these symptoms. He also c/o fatigue. He also had chest pain with palpation. He quit smoking one year ago after a 40 PYH. He was scheduled to have an Lexiscan SPECT at the [facility]. (Brian Page) Review of Systems Consitutional: DENIES: Fatigue, Fever, Chills, Weight gain, Weight loss Eyes: DENIES: Amaurosis Fugax, Change in vision HEENT: DENIES: Lightheadedness, Change in hearing Respiratory: COMPLAINS OF: See HPI Cardiovascular: COMPLAINS OF: See HPI Gastrointestinal: DENIES: Nausea, Vomiting, Change in bowel habits, Reflux, Bloody stools, Melena Genitourinary: DENIES: Urinary incontinence, Difficulty voiding Integumentary: DENIES: Rash Neurologic: DENIES: Tingling or numbness, Memory problems, Poor Balance, Stroke symptoms Musculoskeletal: DENIES: Joint pain, Muscle pain, Limited range of motion, Back pain Psychiatric: DENIES: Anxiety, Depression, Sleep disturbances Hematologic: DENIES: Bruising tendencies, Bleeding tendencies Endocrine: DENIES: Weight gain, Weight loss, Thyroid disease (Brian Page ) Past Family Social History Allergies: Coded Allergies: No Known Allergies (Unverified , 10/30/16) Past Medical History see HPI Likely COPDwith history of smoking for at least 30 years. Stated he quit 10 months ago. CVAwith residual left-sided weakness Carpal tunnel syndrome Past Surgical History Left rotator cuff and shoulder surgery Left hip surgery Reported Medications Reported Meds & Active Scripts Active Xarelto (Rivaroxaban) 15 Mg Tab 15 Mg PO BID Aspirin EC (Aspirin) 81 Mg Tabdr 81 Mg PO DAILY Reported Magnesium Oxide 400 Mg Tab 400 Mg PO DAILY Pantoprazole (Pantoprazole Sodium) 40 Mg Tab 40 Mg PO DAILY Losartan (Losartan Potassium) 25 Mg Tab 50 Mg PO DAILY Atorvastatin (Atorvastatin Calcium) 20 Mg Tab 20 Mg PO DAILY Lyrica (Pregabalin) 75 Mg Cap 75 Mg PO BID Venlafaxine ER 24 HR (Venlafaxine HCl) 75 Mg Cap 75 Mg PO TID Lantus Inj (Insulin Glargine) 1,000 Unit/10 Ml Vial 45 Units SQ BID Novolog Inj (Insulin Aspart) 1,000 Unit/10 Ml Vial 0 SQ DIRECTED Sliding Scale as directed. Metoprolol Tartrate 25 Mg Tab 25 Mg PO BID Active Ordered Medications Current Medications Medications (Trade) Dose Ordered Sig/Dario Route Start Time Stop Time Status Last Admin (NS Flush) 2 ml UNSCH PRN IVF 10/30/16 10:45 (Ecotrin Ec) 81 mg DAILY PO 10/31/16 09:00 (Lipitor) 20 mg DAILY PO 10/31/16 09:00 (Mag-Ox) 400 mg DAILY PO 10/31/16 09:00 (Protonix) 40 mg DAILY PO 10/31/16 09:00 (Lyrica) 75 mg BID PO 10/30/16 21:00 10/30/16 23:06 (Xarelto) 15 mg BID PO 10/30/16 21:00 10/30/16 23:06 (Effexor Xr) 150 mg DAILY PO 10/31/16 09:00 (Cozaar) 25 mg DAILY PO 10/31/16 09:00 (Lopressor) 12.5 mg Q12HR PO 10/30/16 21:00 10/30/16 23:06 (D50w (Vial) Inj) 25 ml UNSCH PRN IV PUSH 10/30/16 14:30 (Glucagon Inj) 1 mg UNSCH PRN OTHER 10/30/16 14:30 (NS Flush) 2 ml UNSCH PRN FLUSH 10/30/16 14:30 10/31/16 01:09 (NS Flush) 2 ml BID FLUSH 10/30/16 21:00 10/30/16 23:05 (Tylenol) 650 mg Q4H PRN PO 10/30/16 14:30 10/31/16 01:47 (Zofran Inj) 4 mg Q6H PRN IVP 10/30/16 14:30 (Dulcolax Supp) 10 mg DAILY PRN HI 10/30/16 14:30 (Colace) 100 mg Q12H PO 10/30/16 14:30 Naloxone HCl 0.4 mg 0.4 mg UNSCH PRN IV 10/30/16 14:30 (Vancomycin Consult Pharmacy) 0 ml @ 0 mls/hr UNSCH OTHER 10/30/16 14:30 (Robitussin Ac 200-20 Mg/10 ml Liq) 10 ml Q4H PRN PO 10/30/16 16:00 10/30/16 18:31 (Roxicodone) 5 mg Q4H PRN PO 10/30/16 15:00 10/30/16 18:38 (Roxicodone) 10 mg Q4H PRN PO 10/30/16 15:00 10/31/16 01:47 Hydromorphone HCl 0.5 mg 0.5 mg Q4H PRN IV PUSH 10/30/16 15:00 10/31/16 05:09 (Zosyn 4.5 Gm Premix) 100 ml @ 200 mls/hr Q6H IV 10/30/16 15:00 10/31/16 01:47 Insulin Detemir 25 units 25 units Q12HR SQ 10/30/16 21:00 10/30/16 23:05 (Vancomycin Inj/ NS 250 ml Inj) 262.5 ml @ 250 mls/hr Q12H IV 10/30/16 17:00 10/31/16 05:09 Miscellaneous Information SPECIFIC LAB TO BE DRAWN:VANCOMYCIN TROUGH DATE TO... ONCE ONCE XX 11/01/16 04:45 11/01/16 04:46 (Pneumovax-23 Inj) 25 mcg ONCE ONCE IM 10/31/16 09:00 10/31/16 09:01 Family History noncontributory Social History see HPI Denies any alcohol abuse. Stated he quit in 2010. Denies any drug abuse (Brian Page) Physical Exam Vital Signs Vital Signs Date Time Temp Pulse Resp B/P Pulse Ox O2 Delivery O2 Flow Rate FiO2 10/31/16 07:19 98 Venturi Mask 50 10/31/16 06:00 80 10/31/16 04:12 95 45 10/31/16 04:00 88 10/31/16 04:00 102.0 88 21 128/68 92 10/31/16 02:00 95 10/31/16 01:40 102.0 92 24 162/79 93 10/31/16 01:30 96 45 10/31/16 00:56 90 Venturi Mask 50 10/30/16 23:55 91 50 10/30/16 23:39 80 Nasal Cannula 3.00 10/30/16 23:33 98.5 93 18 140/84 93 10/30/16 21:00 96 10/30/16 20:22 92 Nasal Cannula 3.00 10/30/16 19:28 98.2 89 18 149/76 95 10/30/16 18:13 97.8 96 20 128/65 93 10/30/16 17:58 16 10/30/16 16:10 80 18 140/70 93 Nasal Cannula 4 10/30/16 14:28 86 18 121/60 94 Nasal Cannula 4 10/30/16 14:18 18 10/30/16 11:10 100 Nasal Cannula 4 10/30/16 11:10 93 Nasal Cannula 4 10/30/16 11:03 97 Nasal Cannula 3.00 10/30/16 10:40 74 18 93 Nasal Cannula 4 10/30/16 10:32 97.7 74 18 90 Physical Exam GENERAL: Well-nourished, well-developed patient in no apparent distress. NECK: No JVD. No carotid bruit. CARDIOVASCULAR: Regular rate and rhythm. S1/S2 no murmur, rub, or gallop. RESPIRATORY: No accessory muscle use. diminished to auscultation. Breath sounds equal bilaterally. GASTROINTESTINAL: Abdomen soft, non-tender, nondistended. MUSCULOSKELETAL: Extremities without clubbing, cyanosis, or edema. Laboratory Laboratory Tests Test 10/30/16 10/30/16 10/30/16 10/30/16 10:45 13:13 16:25 23:49 Prothrombin Time 11.7 Prothromb Time International 1.1 Ratio Activated Partial 36.4 Thromboplast Time Sodium Level 136 Potassium Level 4.3 Chloride Level 99 Carbon Dioxide Level 29.8 Anion Gap 7 Blood Urea Nitrogen 23 Creatinine 1.17 Estimat Glomerular Filtration 64 Rate Random Glucose 161 Lactic Acid Level 2.0 Calcium Level 8.0 Total Bilirubin 0.6 Aspartate Amino Transf 17 (AST/SGOT) Alanine Aminotransferase 19 (ALT/SGPT) Alkaline Phosphatase 70 Troponin I 0.48 0.58 0.41 B-Type Natriuretic Peptide 112 103 Total Protein 6.5 Albumin 2.8 White Blood Count 4.8 Red Blood Count 4.58 Hemoglobin 13.2 Hematocrit 40.0 Mean Corpuscular Volume 87.3 Mean Corpuscular Hemoglobin 28.9 Mean Corpuscular Hemoglobin 33.1 Concent Red Cell Distribution Width 14.7 Platelet Count 120 Mean Platelet Volume 9.7 Neutrophils (%) (Auto) 72.1 Lymphocytes (%) (Auto) 14.0 Monocytes (%) (Auto) 11.3 Eosinophils (%) (Auto) 2.1 Basophils (%) (Auto) 0.5 Neutrophils # (Auto) 3.5 Lymphocytes # (Auto) 0.7 Monocytes # (Auto) 0.5 Eosinophils # (Auto) 0.1 Basophils # (Auto) 0.0 CBC Comment DIFF FINAL Differential Comment Test 10/31/16 10/31/16 10/31/16 10/31/16 00:10 02:00 04:14 06:00 Blood Gas Puncture Site RT RADIAL Blood Gas Patient Temperature 98.6 Blood Gas HCO3 25 Blood Gas Base Excess 0.0 Blood Gas Oxygen Saturation 88 Arterial Blood pH 7.36 Arterial Blood Partial 45 Pressure CO2 Arterial Blood Partial 67 Pressure O2 Arterial Blood Oxygen Content 17.7 Arterial Blood 2.4 Carboxyhemoglobin Arterial Blood Methemoglobin 2.1 Blood Gas Hemoglobin 14.2 Oxygen Delivery Device Nasal Screen MRSA (PCR) NEGATIVE White Blood Count 4.7 Red Blood Count 4.59 Hemoglobin 13.4 Hematocrit 40.3 Mean Corpuscular Volume 87.9 Mean Corpuscular Hemoglobin 29.3 Mean Corpuscular Hemoglobin 33.3 Concent Red Cell Distribution Width 15.1 Platelet Count 132 Mean Platelet Volume 9.4 Neutrophils (%) (Auto) 71.4 Lymphocytes (%) (Auto) 15.1 Monocytes (%) (Auto) 11.1 Eosinophils (%) (Auto) 1.9 Basophils (%) (Auto) 0.5 Neutrophils # (Auto) 3.4 Lymphocytes # (Auto) 0.7 Monocytes # (Auto) 0.5 Eosinophils # (Auto) 0.1 Basophils # (Auto) 0.0 CBC Comment DIFF FINAL Differential Comment Sodium Level 137 Potassium Level 4.2 Chloride Level 98 Carbon Dioxide Level 31.1 Anion Gap 8 Blood Urea Nitrogen 24 Creatinine 1.36 Estimat Glomerular Filtration 54 Rate Random Glucose 152 Calcium Level 7.9 Urine Color LIGHT-YELLOW Urine Turbidity CLEAR Urine pH 5.0 Urine Specific [place] 1.011 Urine Protein TRACE Urine Glucose (UA) NEG Urine Ketones NEG Urine Occult Blood TRACE Urine Nitrite NEG Urine Bilirubin NEG Urine Urobilinogen LESS THAN 2.0 Urine Leukocyte Esterase NEG Urine RBC LESS THAN 1 Urine WBC LESS THAN 1 Urine Squamous Epithelial <1 Cells Urine Bacteria RARE Microscopic Urinalysis Comment CULT NOT INDICATED Date/Time Procedure Status Source Growth 10/30/16 10:47 Influenza Types A,B Antigen (G[facility]) - Final Complete Nasal Washing NEGATIVE FOR FLU A AND B ANTIGEN.... 10/30/16 10:45 Aerobic Blood Culture Received Blood Peripheral Pending 10/30/16 10:45 Anaerobic Blood Culture Received Blood Peripheral Pending (Brian Page) Result Diagram: 10/31/1641310/31/16413 Assessment and Plan Problem List: (1) Troponin level elevated (2) HTN (hypertension) (3) Bilateral pulmonary embolism Assessment and Plan troponin is likely demand mediated and when he is more stable he should have Lexiscan SPECT HTN well controlled CVA and PE on Xarelto (Brian Page) Assessment and Plan agree with above rhonci and SOB when symptoms improve, plan for lexiscan cont current treatment plan 2d echo (Garett Dozier MD) Brian Page Oct 31, 2016 08:04 Garett Dozier MD Oct 31, 2016 09:04
[2016-10-31] MEDS ORDERED: PNEUMOCOCCAL POLYVALENT INJ 25 MCG/0.5 ML SYR IM ONE (09:00)
[2016-10-31] MEDS: LOSARTAN 25 MG TAB PO SCH (09:00)
[2016-10-31] MEDS: RIVAROXABAN 15 MG TAB PO SCH ×2 (09:00→20:49)
[2016-10-31] MEDS: PANTOPRAZOLE SOD 40 MG DELAYED RELEASE TAB PO SCH (09:30)
[2016-10-31] MEDS: SODIUM CHLORIDE 0.9% FLUSH 5 ML FLUSH FLUSH SCH ×2 (09:30→20:09)
[2016-10-31] MEDS: METOPROLOL TARTRATE 25 MG TAB PO SCH ×2 (09:30→20:09)
[2016-10-31] MEDS: VENLAFAXINE HCL XR 75 MG CAP PO SCH (09:30)
[2016-10-31] MEDS: MAGNESIUM OXIDE 400 MG TAB PO SCH (09:31)
[2016-10-31] MEDS: PREGABALIN 75 MG CAP PO SCH ×2 (09:31→20:09)
[2016-10-31] MEDS: ASPIRIN EC 81 MG TABEC PO SCH (09:31)
[2016-10-31] MEDS: ATORVASTATIN 20 MG TAB PO SCH (09:31)
[2016-10-31] MEDS: INSULIN DETEMIR 100 UNITS/ML VIAL SQ SCH ×2 (09:32→20:09)
--- NOTE | 2016-10-31 10:02 | EKG ---
Date Performed: 10/31/2016 Time Performed: 03:11:30 PTAGE: 55 years EKG: --- Warning: Data quality may affect interpretation --- Sinus rhythm . Lateral ST changes are nonspecific Borderline ECG PREVIOUS TRACING : 10/31/2016 03.10 DOCTOR: Garett Dozier Interpretating Date/Time 10/31/2016 10:01:28
[2016-10-31] MEDS ORDERED: ENALAPRILAT 1.25 MG/ML VIAL IV PUSH PRN (11:30)
--- NOTE | 2016-10-31 11:32 | HHI.PR ---
Subjective Remarks The patient had significant pain from the Cuellar insertion. He said he had a lot of chest pain on the left side. He said he could not tolerate the BiPAP because he is claustrophobic. He said he had a cardiology workup at the [facility] in process. He said he was supposed to get a stress test later on this month. Discussed with nursing. Objective Vitals Vital Signs Date Time Temp Pulse Resp B/P Pulse Ox O2 Delivery O2 Flow Rate FiO2 10/31/16 10:00 89 10/31/16 08:00 97.8 84 24 147/83 95 10/31/16 08:00 84 10/31/16 07:19 98 Venturi Mask 50 10/31/16 06:00 80 10/31/16 04:12 95 45 10/31/16 04:00 88 10/31/16 04:00 102.0 88 21 128/68 92 10/31/16 02:00 95 10/31/16 01:40 102.0 92 24 162/79 93 10/31/16 01:30 96 45 10/31/16 00:56 90 Venturi Mask 50 10/30/16 23:55 91 50 10/30/16 23:39 80 Nasal Cannula 3.00 10/30/16 23:33 98.5 93 18 140/84 93 10/30/16 21:00 96 10/30/16 20:22 92 Nasal Cannula 3.00 10/30/16 19:28 98.2 89 18 149/76 95 10/30/16 18:13 97.8 96 20 128/65 93 10/30/16 17:58 16 10/30/16 16:10 80 18 140/70 93 Nasal Cannula 4 10/30/16 14:28 86 18 121/60 94 Nasal Cannula 4 10/30/16 14:18 18 I/O 10/30/16 10/30/16 10/30/16 10/31/16 10/31/16 10/31/16 07:00 15:00 23:00 07:00 15:00 23:00 Intake Total 310 ml Output Total 1050 ml Balance -740 ml Intake IV Total 310 ml Output Urine Total 1050 ml Bladder Scan Volume Amount 500 ml Result Diagram: 10/31/16 0414 10/31/16 0414 Imaging Last Impressions Chest X-Ray 10/31/16 0000 Signed Impressions: Service Date/Time: Monday, October 31, 2016 00:29 - CONCLUSION: 1. Ill- defined airspace disease predominantly on the left side characteristic of bronchopneumonia. Findings similar to October 30. Moy Pederson MD CT Angiography 10/30/16 0000 Signed Impressions: Service Date/Time: Sunday, October 30, 2016 14:54 - CONCLUSION: The multiple pulmonary emboli seen in August have completely resolved. I don't see any residual emboli on today's exam. There is new airspace disease in the left upper lobe possible pneumonia. Garett Layton MD Abdomen X-Ray 10/30/16 0000 Signed Impressions: Service Date/Time: Sunday, October 30, 2016 14:47 - CONCLUSION: Normal examination. Bony prominence of the right pubic symphysis Garett Layton MD Objective Remarks GENERAL: This is a well-nourished, well-developed patient, in no apparent distress. SKIN: No rashes, ecchymoses or lesions. Cool and dry. HEAD: Atraumatic. Normocephalic. No temporal or scalp tenderness. EYES: Extraocular motions intact. No scleral icterus. No injection or drainage. CARDIOVASCULAR: Regular rate and rhythm without murmurs, gallops, or rubs. RESPIRATORY: Scattered rhonchi. GASTROINTESTINAL: Abdomen soft, mildly distended. Nontender to palpation. MUSCULOSKELETAL: Extremities without clubbing, cyanosis, or edema. No joint tenderness, effusion, or edema noted. NEUROLOGICAL: Awake and alert. No focal deficits. Motor and sensory grossly within normal limits. Five out of 5 muscle strength in all muscle groups. Normal speech. PSYCH: Mood and affect appropriate. Medications and IVs Current Medications Medications (Trade) Dose Ordered Sig/Dario Route Start Time Stop Time Status Last Admin (NS Flush) 2 ml UNSCH PRN IVF 10/30/16 10:45 (Ecotrin Ec) 81 mg DAILY PO 10/31/16 09:00 10/31/16 09:31 (Lipitor) 20 mg DAILY PO 10/31/16 09:00 10/31/16 09:31 (Mag-Ox) 400 mg DAILY PO 10/31/16 09:00 10/31/16 09:31 (Protonix) 40 mg DAILY PO 10/31/16 09:00 10/31/16 09:30 (Lyrica) 75 mg BID PO 10/30/16 21:00 10/31/16 09:31 (Xarelto) 15 mg BID PO 10/30/16 21:00 10/30/16 23:06 (Effexor Xr) 150 mg DAILY PO 10/31/16 09:00 10/31/16 09:30 (Cozaar) 25 mg DAILY PO 10/31/16 09:00 (Lopressor) 12.5 mg Q12HR PO 10/30/16 21:00 10/31/16 09:30 (D50w (Vial) Inj) 25 ml UNSCH PRN IV PUSH 10/30/16 14:30 (Glucagon Inj) 1 mg UNSCH PRN OTHER 10/30/16 14:30 (NS Flush) 2 ml UNSCH PRN FLUSH 10/30/16 14:30 10/31/16 01:09 (NS Flush) 2 ml BID FLUSH 10/30/16 21:00 10/31/16 09:30 (Tylenol) 650 mg Q4H PRN PO 10/30/16 14:30 10/31/16 01:47 (Zofran Inj) 4 mg Q6H PRN IVP 10/30/16 14:30 (Dulcolax Supp) 10 mg DAILY PRN [place] 10/30/16 14:30 (Colace) 100 mg Q12H PO 10/30/16 14:30 Naloxone HCl 0.4 mg 0.4 mg UNSCH PRN IV 10/30/16 14:30 (Vancomycin Consult Pharmacy) 0 ml @ 0 mls/hr UNSCH OTHER 10/30/16 14:30 (Robitussin Ac 200-20 Mg/10 ml Liq) 10 ml Q4H PRN PO 10/30/16 16:00 10/30/16 18:31 (Roxicodone) 5 mg Q4H PRN PO 10/30/16 15:00 10/30/16 18:38 (Roxicodone) 10 mg Q4H PRN PO 10/30/16 15:00 10/31/16 01:47 Hydromorphone HCl 0.5 mg 0.5 mg Q4H PRN IV PUSH 10/30/16 15:00 10/31/16 10:12 (Zosyn 4.5 Gm Premix) 100 ml @ 200 mls/hr Q6H IV 10/30/16 15:00 10/31/16 09:30 Insulin Detemir 25 units 25 units Q12HR SQ 10/30/16 21:00 10/31/16 09:32 (Vancomycin Inj/ NS 250 ml Inj) 262.5 ml @ 250 mls/hr Q12H IV 10/30/16 17:00 10/31/16 05:09 Miscellaneous Information SPECIFIC LAB TO BE DRAWN:VANCOMYCIN TROUGH DATE TO... ONCE ONCE XX 11/01/16 04:45 11/01/16 04:46 A/P Assessment and Plan HCAP/ acute respiratory failure The patient was given Rocephin and azithromycin in the emergency department. He was recently treated for bilateral pneumonia. CT showed left upper airspace disease. He required BiPAP for a period of time. ABG did show hypoxemia. Repeat CXR stable. - continue vancomycin and Zosyn. - Sputum culture ordered and pending. Follow blood culture data. - Duonebs every 6 hours while awake and as needed. - antitussives as needed. - Acapella. - wean O2 as tolerated. Continue to monitor in the ICU. BiPAP if needed. Chest pain with mildly elevated troponin Troponin peaked at 0.58- possibly demand ischemia in the setting of pneumonia. The pt has had elevated trops in the past s/t pneumonia. EKG reveals sinus rhythm with inverted T waves in V6 and slight ST depression. Recent cardiac echocardiogram 08/29/2016 shows EF 55-60%. Cardiology consult appreciated. - Continuous telemetry. - echo ordered. - stress test per cardiology when stable. Diabetes mellitus insulin-dependent Patient takes Lantus 45 units twice a day at home. Hemoglobin A1c 08/03/2016 9.3% . Glucose relatively well controlled 10/31. - will decrease to Levemir 25 units twice a day. Adjust as needed. - Accu-Cheks before meals at bedtime with low-dose sliding scale insulin coverage. Hypertension Patient reports his blood pressure at home has been running low systolic of 100 and recently had his blood pressure medication increased. Blood pressure fluctuates. - Will restart losartan 25 mg daily and metoprolol at 12.5 mg twice a day. - Monitor vital signs. - Vasotec as needed. History of pulmonary venous embolism CTA negative for PE. - continue Xarelto. Urinary retention A Cuellar catheter was placed and the patient's abdominal distention improved. - Continue Cuellar for now. - Continue Flomax. DVT prophylaxis: patient is on Xarelto Discharge Planning Awaiting clinical improvement. Samir Nick DO Oct 31, 2016 11:32
--- NOTE | 2016-10-31 11:38 | EKG ---
Date Performed: 10/30/2016 Time Performed: 10:34:36 PTAGE: 55 years EKG: Sinus rhythm POSSIBLE LEFT ATRIAL ENLARGEMENT LEFT VENTRICULAR HYPERTROPHY AND ST-T CHANGE ABNORMAL ECG PREVIOUS TRACING : 08/28/2016 09.52 DOCTOR: Garett Dozier Interpretating Date/Time 10/31/2016 11:37:23
[2016-10-31] MEDS: TAMSULOSIN HCL 0.4 MG CAP PO SCH (12:33)
--- NOTE | 2016-10-31 20:01 | EC ---
Study Study Date:10/31/2016 STUDY CONCLUSIONS SUMMARY - Left ventricle: The cavity size was normal. Wall thickness was normal. Systolic function was at the lower limits of normal. The estimated ejection fraction was in the range of 50% to 55%. Wall motion was normal; there were no regional wall motion abnormalities. - Aortic valve: Transvalvular velocity was minimally increased. There was mild stenosis. Valve area: 1.69cm^2(VTI). Valve area: 1.57cm^2 (Vmax). - Mitral valve: Mild regurgitation. - Tricuspid valve: Mild regurgitation. If LV function is below 40, please consider prescribing an ACEI or ARB or document rationale for non-use. PROCEDURE DATA STUDY STATUS: Elective. Procedure: Transthoracic echocardiography. Image quality was good. Scanning was performed from the parasternal, apical, and subcostal acoustic windows. Study completion: The patient tolerated the procedure well. Transthoracic echocardiography. M-mode, complete 2D, complete spectral Doppler, and color Doppler. Height: Height: 70in. Weight: Weight: 214.6lb. Body mass index: BMI: 30.8kg/m^2. Body surface area: BSA: 2.15m^2. Patient status: Inpatient. CARDIAC ANATOMY LEFT VENTRICLE: Not well visualized. The cavity size was normal. Wall thickness was normal. Systolic function was at the lower limits of normal. The estimated ejection fraction was in the range of 50% to 55%. Wall motion was normal; there were no regional wall motion abnormalities. AORTIC VALVE: Trileaflet; mildly thickened, mildly calcified leaflets. Doppler: Transvalvular velocity was minimally increased. There was mild stenosis. No regurgitation. Valve area: 1.69cm^2(VTI). Indexed valve area: 0.79cm^2/m^2 (VTI). Valve area: 1.57cm^2 (Vmax). Indexed valve area: 0.73cm^2/m^2 (Vmax). Mean gradient: 7mm Hg (S). Peak gradient: 14mm Hg (S). AORTA: Aortic root: The aortic root was normal in size. MITRAL VALVE: Structurally normal valve. Doppler: Transvalvular velocity was within the normal range. There was no evidence for stenosis. Mild regurgitation. Peak gradient: 5mm Hg (D). LEFT ATRIUM: The atrium was normal in size. RIGHT VENTRICLE: The cavity size was normal. Wall thickness was normal. PULMONIC VALVE: Doppler: Transvalvular velocity was within the normal range. There was no evidence for stenosis. No regurgitation. TRICUSPID VALVE: Structurally normal valve. Doppler: Transvalvular velocity was within the normal range. Mild regurgitation. PULMONARY ARTERY: Systolic pressure could not be accurately estimated. RIGHT ATRIUM: The atrium was normal in size. PERICARDIUM: There was no pericardial effusion. SYSTEMIC VEINS: Inferior vena cava: The vessel was normal in size. Patient weight: 214.6lb _Ejection fraction:_ 65-75% _Fractional shortening:_ 32% up to 5Kg 5-11.5Kg 11.6-22.9Kg 23-45Kg 45-57Kg Aortic Root 7-13 <17 13-22 17-27 17-27 LA diam 6-13 <23 24-38 33-47 37-40 RVID 10-17 7-15 7-15 7-18 8-17 LVIDd 12-22 <32 24-38 33-47 37-40 LVPW 2-4 3-6 5-7 6-8 7-8 IVS 2-4 3-6 5-7 6-8 7-8 BASIC MEASUREMENTS ADULT NORMAL Left ventricle LV internal dimension, ED, chordal 51.2 mm 43-52 level, PLAX LV internal dimension, ES, chordal *40.8 mm 23-38 level, PLAX Fractional shortening, chordal level, *20 % >29 PLAX LV posterior wall thickness, ED 7.96 mm IVS/LVPW ratio, ED 0.95 <1.3 Ventricular septum Septal thickness, ED 7.6 mm Aortic valve Leaflet separation 19 mm 15-26 Aorta Root diameter, ED 30 mm Left atrium Anterior-posterior dimension 36 mm Anterior-posterior dimension index 1.67 cm/m^2 <2.2 BASIC MEASUREMENTS ADULT NORMAL Aortic valve Leaflet separation 19 mm 15-26 DOPPLER MEASUREMENTS ADULT NORMAL Aortic valve Peak velocity, S 189 cm/s Mean velocity, S 127 cm/s VTI, S 28.4 cm Mean gradient, S 7 mm Hg Peak gradient, S 14 mm Hg Valve area, VTI 1.69 cm^2 Valve area index, VTI 0.79 cm^2/m^2 Valve area, Vmax 1.57 cm^2 Valve area index, Vmax 0.73 cm^2/m^2 Mitral valve Peak E-wave velocity 116 cm/s Peak A-wave velocity 90.8 cm/s Peak gradient, D 5 mm Hg Peak E/A ratio 1.3 Pulmonic valve Peak velocity, S 95.5 cm/s LEGEND: Mean values are shown as u=mean value. Asterisk (*) alvarado values outside specified normal range. Prepared and signed by Garett Dozier [id number]
[2016-10-31] MEDS: guaiFENesin/CODEINE SYRUP 200 MG/20 MG/10 ML CUP PO PRN (20:07)
[2016-11-01] VITALS (14 sets, daily range): BP systolic 133–162; BP diastolic 58–86; PULSE 74–115; RESP 17–25; TEMP 98.2–99; O2SAT 91–96
[2016-11-01] MEDS: guaiFENesin/CODEINE SYRUP 200 MG/20 MG/10 ML CUP PO PRN ×3 (00:23→21:42)
[2016-11-01] MEDS: HYDROmorphone HCL PF 1 MG/ML VIAL IV PUSH PRN ×5 (00:24→21:44)
[2016-11-01] MEDS: PIPERACIL-TAZO 4.5 GM PREMIX 100 ML IV SCH ×4 (02:41→21:42)
[2016-11-01] MEDS: VANCOMYCIN INJ 1,250 MG in SODIUM CHLOR 0.9% 250 ML INJ 250 ML IV SCH ×2 (04:23→15:50)
[2016-11-01] MEDS ORDERED: PHARMACY ORDERED LAB XX ONE (04:45)
[2016-11-01] MEDS: INSULIN ASPART SUPPLEMENTAL SCALE SQ SCH ×4 (05:59→21:45)
[2016-11-01 06:03] LABS: BICARBONATE 30.2 MEQ/L (21.0-32.0); MAGNESIUM 1.8 MG/DL (1.5-2.5); POTASSIUM 4.2 MEQ/L (3.5-5.1)
--- NOTE | 2016-11-01 07:59 | PD.CARD.PN ---
Subjective Subjective Remarks c/o shortness of breath (Brian Page) Objective Vital Signs / I&O Vital Signs Date Time Temp Pulse Resp B/P Pulse Ox O2 Delivery O2 Flow Rate FiO2 11/01/16 06:00 76 11/01/16 04:00 85 11/01/16 04:00 98.2 85 25 138/80 92 11/01/16 02:00 86 11/01/16 00:00 99.0 94 25 160/86 93 11/01/16 00:00 100 10/31/16 22:00 85 10/31/16 20:00 99.1 100 25 146/82 91 10/31/16 20:00 100 10/31/16 19:39 98 Nasal Cannula 5.00 10/31/16 18:00 101 10/31/16 16:00 97 10/31/16 16:00 98.6 97 146/78 10/31/16 14:00 86 10/31/16 12:00 78 10/31/16 12:00 98.4 78 33 112/60 94 10/31/16 10:00 89 10/31/16 08:00 97.8 84 24 147/83 95 10/31/16 08:00 84 I/O 10/31/16 10/31/16 10/31/16 11/01/16 11/01/16 11/01/16 07:00 15:00 23:00 07:00 15:00 23:00 Intake Total 310 ml 802 ml 672 ml 960 ml Output Total 1050 ml 800 ml 800 ml 250 ml Balance -740 ml 2 ml -128 ml 710 ml Intake Oral 400 ml 550 ml 650 ml IV Total 310 ml 402 ml 122 ml 310 ml Output Urine Total 1050 ml 800 ml 800 ml 250 ml Bladder Scan Volume Amount 500 ml Physical Exam GENERAL: Well-nourished, well-developed patient in no apparent distress. NECK: No JVD. No carotid bruit. CARDIOVASCULAR: Regular rate and rhythm. S1/S2 no murmur, rub, or gallop. RESPIRATORY: No accessory muscle use. Clear to auscultation. Breath sounds equal bilaterally. GASTROINTESTINAL: Abdomen soft, non-tender, nondistended. MUSCULOSKELETAL: Extremities without clubbing, cyanosis, or edema. Laboratory Laboratory Tests Test 11/01/16 11/01/16 03:00 05:23 Vancomycin Level Trough 14.8 MCG/ML Sodium Level 138 MEQ/L Potassium Level 4.2 MEQ/L Chloride Level 101 MEQ/L Carbon Dioxide Level 30.2 MEQ/L Anion Gap 7 MEQ/L Blood Urea Nitrogen 26 MG/DL Creatinine 1.40 MG/DL Estimat Glomerular Filtration 52 ML/MIN Rate Random Glucose 143 MG/DL Calcium Level 8.2 MG/DL Magnesium Level 1.8 MG/DL (Brian Page) Assessment and Plan Problem List: (1) Troponin level elevated (2) HTN (hypertension) (3) Bilateral pulmonary embolism (4) Aortic stenosis, mild Assessment and Plan Lexiscan SPECT when pneumonia resolves HTN well controlled CVA and PE on Xarelto - mild will need echo every one to two years (Brian Page) Assessment and Plan slow improvement. breathing is improved. NPO p MN plan for lexiscan tomorrow. (Garett Dozier MD) Brian Page Nov 01, 2016 07:59 Garett Dozier MD Nov 01, 2016 10:30
[2016-11-01] MEDS: RESP: ALBUTEROL 2.5 MG/IPRATROPIUM 0.5 MG NEB (SCH) NEB ×3 (08:05→19:49)
[2016-11-01] MEDS: SODIUM CHLORIDE 0.9% FLUSH 5 ML FLUSH FLUSH SCH ×2 (09:38→21:42)
[2016-11-01] MEDS: ATORVASTATIN 20 MG TAB PO SCH (09:38)
[2016-11-01] MEDS: LOSARTAN 25 MG TAB PO SCH (09:38)
[2016-11-01] MEDS: MAGNESIUM OXIDE 400 MG TAB PO SCH (09:39)
[2016-11-01] MEDS: TAMSULOSIN HCL 0.4 MG CAP PO SCH (09:39)
[2016-11-01] MEDS: PREGABALIN 75 MG CAP PO SCH ×2 (09:39→21:42)
[2016-11-01] MEDS: METOPROLOL TARTRATE 25 MG TAB PO SCH ×2 (09:39→21:43)
[2016-11-01] MEDS: INSULIN DETEMIR 100 UNITS/ML VIAL SQ SCH ×2 (09:39→21:44)
[2016-11-01] MEDS: PANTOPRAZOLE SOD 40 MG DELAYED RELEASE TAB PO SCH (09:39)
[2016-11-01] MEDS: RIVAROXABAN 15 MG TAB PO SCH ×2 (09:39→21:43)
[2016-11-01] MEDS: ASPIRIN EC 81 MG TABEC PO SCH (09:39)
[2016-11-01] MEDS: VENLAFAXINE HCL XR 75 MG CAP PO SCH (09:46)
--- NOTE | 2016-11-01 12:31 | HHI.PR ---
Subjective Remarks The pt still had shortness of breath and chest pain. Frustrated that he has pneumonia again. Discussed with nursing. Objective Vitals Vital Signs Date Time Temp Pulse Resp B/P Pulse Ox O2 Delivery O2 Flow Rate FiO2 11/01/16 10:00 85 11/01/16 08:05 94 Nasal Cannula 5.00 11/01/16 08:00 84 11/01/16 06:00 76 11/01/16 04:00 85 11/01/16 04:00 98.2 85 25 138/80 92 11/01/16 02:00 86 11/01/16 00:00 99.0 94 25 160/86 93 11/01/16 00:00 100 10/31/16 22:00 85 10/31/16 20:00 99.1 100 25 146/82 91 10/31/16 20:00 100 10/31/16 19:39 98 Nasal Cannula 5.00 10/31/16 18:00 101 10/31/16 16:00 97 10/31/16 16:00 98.6 97 146/78 10/31/16 14:00 86 I/O 10/31/16 10/31/16 10/31/16 11/01/16 11/01/16 11/01/16 07:00 15:00 23:00 07:00 15:00 23:00 Intake Total 310 ml 802 ml 672 ml 960 ml Output Total 1050 ml 800 ml 800 ml 250 ml Balance -740 ml 2 ml -128 ml 710 ml Intake Oral 400 ml 550 ml 650 ml IV Total 310 ml 402 ml 122 ml 310 ml Output Urine Total 1050 ml 800 ml 800 ml 250 ml Bladder Scan Volume Amount 500 ml Result Diagram: 10/31/16 0414 11/01/16 0523 Imaging Last Impressions Chest X-Ray 10/31/16 0000 Signed Impressions: Service Date/Time: Monday, October 31, 2016 00:29 - CONCLUSION: 1. Ill- defined airspace disease predominantly on the left side characteristic of bronchopneumonia. Findings similar to October 30. Moy Pederson MD CT Angiography 10/30/16 0000 Signed Impressions: Service Date/Time: Sunday, October 30, 2016 14:54 - CONCLUSION: The multiple pulmonary emboli seen in August have completely resolved. I don't see any residual emboli on today's exam. There is new airspace disease in the left upper lobe possible pneumonia. Garett Layton MD Abdomen X-Ray 10/30/16 0000 Signed Impressions: Service Date/Time: Sunday, October 30, 2016 14:47 - CONCLUSION: Normal examination. Bony prominence of the right pubic symphysis Garett Layton MD Objective Remarks GENERAL: This is a well-nourished, well-developed patient, in no apparent distress. SKIN: No rashes, ecchymoses or lesions. Cool and dry. HEAD: Atraumatic. Normocephalic. No temporal or scalp tenderness. EYES: Extraocular motions intact. No scleral icterus. No injection or drainage. CARDIOVASCULAR: Regular rate and rhythm without murmurs, gallops, or rubs. RESPIRATORY: Scattered rhonchi, decreased breath sounds on the left, crackles at the left base. GASTROINTESTINAL: Abdomen soft, mildly distended. Nontender to palpation. MUSCULOSKELETAL: Extremities without clubbing, cyanosis, or edema. No joint tenderness, effusion, or edema noted. NEUROLOGICAL: Awake and alert. No focal deficits. Motor and sensory grossly within normal limits. Five out of 5 muscle strength in all muscle groups. Normal speech. PSYCH: Slightly agitated. Medications and IVs Current Medications Medications (Trade) Dose Ordered Sig/Dario Route Start Time Stop Time Status Last Admin (NS Flush) 2 ml UNSCH PRN IVF 10/30/16 10:45 (Ecotrin Ec) 81 mg DAILY PO 10/31/16 09:00 11/01/16 09:39 (Lipitor) 20 mg DAILY PO 10/31/16 09:00 11/01/16 09:38 (Mag-Ox) 400 mg DAILY PO 10/31/16 09:00 11/01/16 09:39 (Protonix) 40 mg DAILY PO 10/31/16 09:00 11/01/16 09:39 (Lyrica) 75 mg BID PO 10/30/16 21:00 11/01/16 09:39 (Xarelto) 15 mg BID PO 10/30/16 21:00 11/01/16 09:39 (Effexor Xr) 150 mg DAILY PO 10/31/16 09:00 11/01/16 09:46 (Cozaar) 25 mg DAILY PO 10/31/16 09:00 11/01/16 09:38 (Lopressor) 12.5 mg Q12HR PO 10/30/16 21:00 11/01/16 09:39 (D50w (Vial) Inj) 25 ml UNSCH PRN IV PUSH 10/30/16 14:30 (Glucagon Inj) 1 mg UNSCH PRN OTHER 10/30/16 14:30 (NS Flush) 2 ml UNSCH PRN FLUSH 10/30/16 14:30 10/31/16 01:09 (NS Flush) 2 ml BID FLUSH 10/30/16 21:00 11/01/16 09:38 (Tylenol) 650 mg Q4H PRN PO 10/30/16 14:30 10/31/16 01:47 (Zofran Inj) 4 mg Q6H PRN IVP 10/30/16 14:30 (Dulcolax Supp) 10 mg DAILY PRN [place] 10/30/16 14:30 (Colace) 100 mg Q12H PO 10/30/16 14:30 Naloxone HCl 0.4 mg 0.4 mg UNSCH PRN IV 10/30/16 14:30 (Vancomycin Consult Pharmacy) 0 ml @ 0 mls/hr UNSCH OTHER 10/30/16 14:30 (Robitussin Ac 200-20 Mg/10 ml Liq) 10 ml Q4H PRN PO 10/30/16 16:00 11/01/16 04:48 (Roxicodone) 5 mg Q4H PRN PO 10/30/16 15:00 10/30/16 18:38 (Roxicodone) 10 mg Q4H PRN PO 10/30/16 15:00 11/01/16 04:49 Hydromorphone HCl 0.5 mg 0.5 mg Q4H PRN IV PUSH 10/30/16 15:00 11/01/16 09:46 (Zosyn 4.5 Gm Premix) 100 ml @ 200 mls/hr Q6H IV 10/30/16 15:00 11/01/16 09:38 Insulin Detemir 25 units 25 units Q12HR SQ 10/30/16 21:00 11/01/16 09:39 (Vancomycin Inj/ NS 250 ml Inj) 262.5 ml @ 250 mls/hr Q12H IV 10/30/16 17:00 11/01/16 04:23 (Flomax) 0.4 mg DAILY PO 10/31/16 11:30 11/01/16 09:39 (Vasotec Inj) 1.25 mg Q6H PRN IV PUSH 10/31/16 11:30 Miscellaneous Information SPECIFIC LAB TO BE ... ONCE ONCE XX 11/02/16 04:45 11/02/16 04:46 A/P Assessment and Plan HCAP/ acute respiratory failure The patient was given Rocephin and azithromycin in the emergency department. He was recently treated for bilateral pneumonia. CT showed left upper airspace disease. He required BiPAP for a period of time. ABG did show hypoxemia. Repeat CXR stable. - continue vancomycin and Zosyn. - Sputum culture ordered and pending. Follow blood culture data. - Duonebs every 6 hours while awake and as needed. - antitussives as needed. - Acapella. - wean O2 as tolerated. Continue to monitor in the ICU. BiPAP if needed. - encourage ambulation. Add PT. - repeat CXR. Chest pain with mildly elevated troponin Troponin peaked at 0.58- possibly demand ischemia in the setting of pneumonia. The pt has had elevated trops in the past s/t pneumonia. EKG reveals sinus rhythm with inverted T waves in V6 and slight ST depression. Recent cardiac echocardiogram 08/29/2016 shows EF 55-60%. Cardiology consult appreciated. Echo with EF 50-55%, mild . - Continuous telemetry. - stress test per cardiology in AM. Diabetes mellitus insulin-dependent Patient takes Lantus 45 units twice a day at home. Hemoglobin A1c 08/03/2016 9.3% . Glucose well controlled 11/01. - will decrease to Levemir 25 units twice a day. Adjust as needed. - Accu-Cheks before meals at bedtime with low-dose sliding scale insulin coverage. Hypertension Patient reports his blood pressure at home has been running low systolic of 100 and recently had his blood pressure medication increased. Blood pressure fluctuates. - Will restart losartan 25 mg daily and metoprolol at 12.5 mg twice a day. - Monitor vital signs. - Vasotec as needed. History of pulmonary venous embolism CTA negative for PE. - continue Xarelto. Urinary retention A Cuellar catheter was placed and the patient's abdominal distention improved. - remove Cuellar. - Continue Flomax. DVT prophylaxis: patient is on Xarelto Discharge Planning Awaiting clinical improvement. Samir Nick DO Nov 01, 2016 12:31
[2016-11-01] MEDS: DOCUSATE SODIUM 100 MG CAP PO SCH ×2 (12:49→21:46)
--- NOTE | 2016-11-01 13:24 | RADRPT ---
EXAM DATE/TIME: 11/01/2016 11:54 [facility] COMPARISON: Prior study, previous day. INDICATIONS : Shortness of breath MEDICAL HISTORY : Hypertension. Chronic obstructive pulmonary disease. Hypercholesterolemia. CVA. GERD. Diabetes. SURGICAL HISTORY : Orthopedic surgery. ENCOUNTER: Subsequent ACUITY: 3 days PAIN SCORE: 0/10 LOCATION: chest FINDINGS: A single view of the chest demonstrates there is bilateral perihilar vascular congestion left greater than right. Left clavicle has been fixated. There is some sclerosis of left humeral head. There i s no visible pneumothorax. CONCLUSION: Diffuse pulmonary vascular prominence left greater than right. No definite focal infiltrate. Garett Layton MD on November 01, 2016 at 13:15 Board Certified Radiologist. This report was verified electronically.
[2016-11-02] VITALS (8 sets, daily range): BP systolic 108–154; BP diastolic 53–78; PULSE 87–99; RESP 10–20; TEMP 95.6–98.2; O2SAT 85–98
[2016-11-02] MEDS: HYDROmorphone HCL PF 1 MG/ML VIAL IV PUSH PRN ×3 (01:36→20:37)
[2016-11-02] MEDS: guaiFENesin/CODEINE SYRUP 200 MG/20 MG/10 ML CUP PO PRN (01:36)
[2016-11-02] MEDS: PIPERACIL-TAZO 4.5 GM PREMIX 100 ML IV SCH ×4 (02:29→20:36)
[2016-11-02] MEDS: VANCOMYCIN INJ 1,250 MG in SODIUM CHLOR 0.9% 250 ML INJ 250 ML IV SCH ×2 (04:25→16:45)
[2016-11-02] MEDS ORDERED: PHARMACY ORDERED LAB XX ONE (04:45)
[2016-11-02 05:23] LABS: VANCOMYCIN TROUGH 14.6 MCG/ML (5.0-10.0)
[2016-11-02] MEDS: INSULIN ASPART SUPPLEMENTAL SCALE SQ SCH ×4 (06:47→20:38)
[2016-11-02] MEDS: RESP: ALBUTEROL 2.5 MG/IPRATROPIUM 0.5 MG NEB (SCH) NEB ×3 (08:00→20:13)
--- NOTE | 2016-11-02 08:14 | PD.CARD.PN ---
Subjective Subjective Remarks denies chest pain Objective Vital Signs / I&O Vital Signs Date Time Temp Pulse Resp B/P Pulse Ox O2 Delivery O2 Flow Rate FiO2 11/02/16 07:17 18 11/02/16 05:30 20 11/02/16 04:00 98.2 88 20 152/76 93 11/02/16 02:10 87 11/02/16 00:00 99 11/02/16 00:00 98.1 99 18 154/78 91 11/01/16 22:14 22 11/01/16 22:00 96 11/01/16 20:00 98.3 88 24 162/84 96 11/01/16 20:00 88 11/01/16 19:49 96 Nasal Cannula 5.00 11/01/16 18:00 101 11/01/16 16:00 83 11/01/16 16:00 98.6 115 18 146/82 93 11/01/16 14:00 89 11/01/16 12:00 99.0 84 17 138/66 91 11/01/16 12:00 74 11/01/16 10:00 85 I/O 11/01/16 11/01/16 11/01/16 11/02/16 11/02/16 11/02/16 07:00 15:00 23:00 07:00 15:00 23:00 Intake Total 960 ml 641 ml 420 ml 256 ml Output Total 250 ml 300 ml 300 ml Balance 710 ml 641 ml 120 ml -44 ml Intake Oral 650 ml 450 ml 0 ml IV Total 310 ml 191 ml 420 ml 256 ml Output Urine Total 250 ml 300 ml 300 ml # Voids 3 2 # Bowel Movements 1 3 0 Physical Exam GENERAL: Well-nourished, well-developed patient in no apparent distress. NECK: No JVD. No carotid bruit. CARDIOVASCULAR: Regular rate and rhythm. S1/S2 no murmur, rub, or gallop. RESPIRATORY: No accessory muscle use. Clear to auscultation. Breath sounds equal bilaterally. GASTROINTESTINAL: Abdomen soft, non-tender, nondistended. MUSCULOSKELETAL: Extremities without clubbing, cyanosis, or edema. Laboratory Laboratory Tests Test 11/02/16 04:00 Creatinine 1.13 MG/DL Estimat Glomerular Filtration 67 ML/MIN Rate Vancomycin Level Trough 14.6 MCG/ML Assessment and Plan Problem List: (1) Troponin level elevated (2) HTN (hypertension) (3) Bilateral pulmonary embolism (4) Aortic stenosis, mild Assessment and Plan Lexiscan SPECT today HTN - increase losartan to 50 mg daily CVA and PE on Xarelto - mild will need echo every one to two years Brian Page Nov 02, 2016 08:14
[2016-11-02] MEDS: VENLAFAXINE HCL XR 75 MG CAP PO SCH (09:00)
[2016-11-02] MEDS ORDERED: REGADENOSON INJ 0.4 MG/5 ML SYR ONE (09:19)
[2016-11-02] MEDS: LOSARTAN 50 MG TAB PO SCH (11:07)
[2016-11-02] MEDS: RIVAROXABAN 15 MG TAB PO SCH ×2 (11:07→20:37)
[2016-11-02] MEDS: ATORVASTATIN 20 MG TAB PO SCH (11:07)
[2016-11-02] MEDS: MAGNESIUM OXIDE 400 MG TAB PO SCH (11:07)
[2016-11-02] MEDS: PREGABALIN 75 MG CAP PO SCH ×2 (11:07→20:36)
[2016-11-02] MEDS: SODIUM CHLORIDE 0.9% FLUSH 5 ML FLUSH FLUSH SCH ×2 (11:08→20:35)
[2016-11-02] MEDS: PANTOPRAZOLE SOD 40 MG DELAYED RELEASE TAB PO SCH (11:08)
[2016-11-02] MEDS: ASPIRIN EC 81 MG TABEC PO SCH (11:08)
[2016-11-02] MEDS: METOPROLOL TARTRATE 25 MG TAB PO SCH ×2 (11:08→20:37)
[2016-11-02] MEDS: TAMSULOSIN HCL 0.4 MG CAP PO SCH (11:08)
[2016-11-02] MEDS: INSULIN DETEMIR 100 UNITS/ML VIAL SQ SCH ×2 (11:11→20:36)
--- NOTE | 2016-11-02 11:40 | RADRPT ---
EXAM DATE/TIME: 11/02/2016 09:10 [facility] COMPARISON: No previous studies available for comparison. INDICATIONS : Midsternal chest pain with dyspnea and a cough. Angina. DOSE: 25.8 mCi Tc99m Myoview at stress. 8.3 mCi Tc99m Myoview at rest. 0.4 mg Lexiscan STRESS SYMPTOMS: Dyspnea and tired feeling. EJECTION FRACTION: 59% MEDICAL HISTORY : Hypercholesterolemia. Hypertension. Diabetes mellitus type 2. COPD. Pneumonia. Pulmonary embolism. SURGICAL HISTORY : Shoulder. ENCOUNTER: Initial ACUITY: 2 days PAIN SCALE: 7/10 LOCATION: Midsternal chest TECHNIQUE: The patient underwent pharmacologic stress with infusion of prescribed dose. Continuous ECG tracing was monitored during stress. Gated SPECT imaging was performed after stress and conventional SPECT i maging was performed at rest. The examination was performed on a SPECT/CT scanner, both attenuation and non-corrected datasets were reviewed. FINDINGS: DISTRIBUTION: The maximum perfused segment at stress is in the lateral wall. PERFUSION STUDY: There is a large sized moderate severity reversible defect involving the entire inferior lateral wall including the apex. Ischemia is not excluded. GATED STUDY: There is intact wall motion and thickening without hypokinetic or dyskinetic segments. CONCLUSION: 1. Large sized moderate severity fixed defect involving the inferolateral wall including the apex. Is chemia is not excluded. No wall motion abnormalities are identified RISK CATEGORY: Intermediate (1-3% Annual Mortality Rate) Ben Aden MD on November 02, 2016 at 11:36 Board Certified Radiologist. This report was verified electronically.
--- NOTE | 2016-11-02 11:43 | HHI.PR ---
Subjective Remarks The patient said he was tired and short of breath. He wanted to know the results of the nuclear stress test. He still had left-sided chest pain. He does believe his coughing improved. He requested a sleeping pill. No other acute complaints. Objective Vitals Vital Signs Date Time Temp Pulse Resp B/P Pulse Ox O2 Delivery O2 Flow Rate FiO2 11/02/16 08:00 96.0 95 10 129/63 93 11/02/16 07:51 Nasal Cannula 4.00 50 11/02/16 07:17 18 11/02/16 05:30 20 11/02/16 04:00 98.2 88 20 152/76 93 11/02/16 02:10 87 11/02/16 00:00 99 11/02/16 00:00 98.1 99 18 154/78 91 11/01/16 22:14 22 11/01/16 22:00 96 11/01/16 20:00 98.3 88 24 162/84 96 11/01/16 20:00 88 11/01/16 19:49 96 Nasal Cannula 5.00 11/01/16 18:00 101 11/01/16 16:00 83 11/01/16 16:00 98.6 115 18 146/82 93 11/01/16 14:00 89 11/01/16 12:00 99.0 84 17 138/66 91 11/01/16 12:00 74 I/O 11/01/16 11/01/16 11/01/16 11/02/16 11/02/16 11/02/16 07:00 15:00 23:00 07:00 15:00 23:00 Intake Total 960 ml 641 ml 420 ml 256 ml Output Total 250 ml 300 ml 300 ml Balance 710 ml 641 ml 120 ml -44 ml Intake Oral 650 ml 450 ml 0 ml IV Total 310 ml 191 ml 420 ml 256 ml Output Urine Total 250 ml 300 ml 300 ml # Voids 3 2 # Bowel Movements 1 3 0 Result Diagram: 10/31/16 0414 11/02/16 0400 Imaging Last Impressions Chest X-Ray 11/01/16 0000 Signed Impressions: Service Date/Time: October 11:54 - CONCLUSION: Diffuse pulmonary vascular prominence left greater than right. No definite focal infiltrate. Garett Layton MD CT Angiography 10/30/16 0000 Signed Impressions: Service Date/Time: Sunday, October 30, 2016 14:54 - CONCLUSION: The multiple pulmonary emboli seen in August have completely resolved. I don't see any residual emboli on today's exam. There is new airspace disease in the left upper lobe possible pneumonia. Garett Layton MD Abdomen X-Ray 10/30/16 0000 Signed Impressions: Service Date/Time: Sunday, October 30, 2016 14:47 - CONCLUSION: Normal examination. Bony prominence of the right pubic symphysis Garett Layton MD Objective Remarks GENERAL: This is a well-nourished, well-developed patient, in no apparent distress. SKIN: No rashes, ecchymoses or lesions. Cool and dry. HEAD: Atraumatic. Normocephalic. No temporal or scalp tenderness. EYES: Extraocular motions intact. No scleral icterus. No injection or drainage. CARDIOVASCULAR: Regular rate and rhythm without murmurs, gallops, or rubs. RESPIRATORY: Scattered rhonchi, crackles on the left, decreased breath sounds. GASTROINTESTINAL: Abdomen soft, mildly distended. Nontender to palpation. MUSCULOSKELETAL: Extremities without clubbing, cyanosis, or edema. No joint tenderness, effusion, or edema noted. NEUROLOGICAL: Awake and alert. No focal deficits. Motor and sensory grossly within normal limits. Five out of 5 muscle strength in all muscle groups. Normal speech. PSYCH: Calm. Medications and IVs Current Medications Medications (Trade) Dose Ordered Sig/Dario Route Start Time Stop Time Status Last Admin (NS Flush) 2 ml UNSCH PRN IVF 10/30/16 10:45 (Ecotrin Ec) 81 mg DAILY PO 10/31/16 09:00 11/02/16 11:08 (Lipitor) 20 mg DAILY PO 10/31/16 09:00 11/02/16 11:07 (Mag-Ox) 400 mg DAILY PO 10/31/16 09:00 11/02/16 11:07 (Protonix) 40 mg DAILY PO 10/31/16 09:00 11/02/16 11:08 (Lyrica) 75 mg BID PO 10/30/16 21:00 11/02/16 11:07 (Xarelto) 15 mg BID PO 10/30/16 21:00 11/02/16 11:07 (Effexor Xr) 150 mg DAILY PO 10/31/16 09:00 11/02/16 09:00 (Lopressor) 12.5 mg Q12HR PO 10/30/16 21:00 11/02/16 11:08 (D50w (Vial) Inj) 25 ml UNSCH PRN IV PUSH 10/30/16 14:30 (Glucagon Inj) 1 mg UNSCH PRN OTHER 10/30/16 14:30 (NS Flush) 2 ml UNSCH PRN FLUSH 10/30/16 14:30 10/31/16 01:09 (NS Flush) 2 ml BID FLUSH 10/30/16 21:00 11/02/16 11:08 (Tylenol) 650 mg Q4H PRN PO 10/30/16 14:30 10/31/16 01:47 (Zofran Inj) 4 mg Q6H PRN IVP 10/30/16 14:30 (Dulcolax Supp) 10 mg DAILY PRN CO 10/30/16 14:30 (Colace) 100 mg Q12H PO 10/30/16 14:30 11/01/16 12:49 Naloxone HCl 0.4 mg 0.4 mg UNSCH PRN IV 10/30/16 14:30 (Vancomycin Consult Pharmacy) 0 ml @ 0 mls/hr UNSCH OTHER 10/30/16 14:30 (Robitussin Ac 200-20 Mg/10 ml Liq) 10 ml Q4H PRN PO 10/30/16 16:00 11/02/16 01:36 (Roxicodone) 5 mg Q4H PRN PO 10/30/16 15:00 10/30/16 18:38 (Roxicodone) 10 mg Q4H PRN PO 10/30/16 15:00 11/02/16 04:30 Hydromorphone HCl 0.5 mg 0.5 mg Q4H PRN IV PUSH 10/30/16 15:00 11/02/16 06:47 (Zosyn 4.5 Gm Premix) 100 ml @ 200 mls/hr Q6H IV 10/30/16 15:00 11/02/16 11:08 Insulin Detemir 25 units 25 units Q12HR SQ 10/30/16 21:00 11/02/16 11:11 (Vancomycin Inj/ NS 250 ml Inj) 262.5 ml @ 250 mls/hr Q12H IV 10/30/16 17:00 11/02/16 04:25 (Flomax) 0.4 mg DAILY PO 10/31/16 11:30 11/02/16 11:08 (Vasotec Inj) 1.25 mg Q6H PRN IV PUSH 10/31/16 11:30 (Cozaar) 50 mg DAILY PO 11/02/16 09:00 11/02/16 11:07 A/P Assessment and Plan HCAP/ acute respiratory failure The patient was given Rocephin and azithromycin in the emergency department. He was recently treated for bilateral pneumonia. CT showed left upper airspace disease. He required BiPAP for a period of time. ABG did show hypoxemia. Repeat CXR stable. - continue vancomycin and Zosyn. - Sputum culture ordered. Follow blood culture data. NGTD. - Duonebs every 6 hours while awake and as needed. - antitussives as needed. - Acapella. - wean O2 as tolerated. On 2L NC 11/02. - encourage ambulation. Add PT. Chest pain with mildly elevated troponin Troponin peaked at 0.58- possibly demand ischemia in the setting of pneumonia. The pt has had elevated trops in the past s/t pneumonia. EKG reveals sinus rhythm with inverted T waves in V6 and slight ST depression. Recent cardiac echocardiogram 08/29/2016 shows EF 55-60%. Cardiology consult appreciated. Echo with EF 50-55%, mild . - Continuous telemetry. - stress test results pending. Diabetes mellitus insulin-dependent Patient takes Lantus 45 units twice a day at home. Hemoglobin A1c 08/03/2016 9.3% . Glucose well controlled 11/02. - will decrease to Levemir 25 units twice a day. Adjust as needed. - Accu-Cheks before meals at bedtime with low-dose sliding scale insulin coverage. Hypertension Patient reports his blood pressure at home has been running low systolic of 100 and recently had his blood pressure medication increased. Blood pressure fluctuates. - increased losartan to 50 mg daily and continuing metoprolol at 12.5 mg twice a day. - Monitor vital signs. - Vasotec as needed. History of pulmonary venous embolism CTA negative for PE. - continue Xarelto. Urinary retention A Cuellar catheter was placed and the patient's abdominal distention improved. - remove Cuellar. Urinating well. - Continue Flomax. DVT prophylaxis: patient is on Xarelto Discharge Planning Awaiting clinical improvement. Samir Nick DO Nov 02, 2016 11:43
[2016-11-02] MEDS ORDERED: ZOLPIDEM TARTRATE 5 MG TAB PO PRN (11:45)
[2016-11-02] MEDS: DOCUSATE SODIUM 100 MG CAP PO SCH ×2 (13:41→20:38)
[2016-11-03] VITALS (10 sets, daily range): BP systolic 107–154; BP diastolic 63–73; PULSE 87–117; RESP 18–19; TEMP 96.5–98.6; O2SAT 88–93
[2016-11-03] MEDS: PIPERACIL-TAZO 4.5 GM PREMIX 100 ML IV SCH ×4 (03:42→20:03)
[2016-11-03] MEDS: VANCOMYCIN INJ 1,250 MG in SODIUM CHLOR 0.9% 250 ML INJ 250 ML IV SCH ×2 (04:25→17:55)
[2016-11-03] MEDS: INSULIN ASPART SUPPLEMENTAL SCALE SQ SCH ×4 (04:27→21:00)
[2016-11-03] MEDS: HYDROmorphone HCL PF 1 MG/ML VIAL IV PUSH PRN ×2 (04:49→23:47)
[2016-11-03] MEDS: PANTOPRAZOLE SOD 40 MG DELAYED RELEASE TAB PO SCH (08:28)
[2016-11-03] MEDS: ASPIRIN EC 81 MG TABEC PO SCH (08:28)
[2016-11-03] MEDS: MAGNESIUM OXIDE 400 MG TAB PO SCH (08:28)
[2016-11-03] MEDS: RIVAROXABAN 15 MG TAB PO SCH ×2 (08:28→20:04)
[2016-11-03] MEDS: TAMSULOSIN HCL 0.4 MG CAP PO SCH (08:28)
[2016-11-03] MEDS: LOSARTAN 50 MG TAB PO SCH (08:28)
[2016-11-03] MEDS: PREGABALIN 75 MG CAP PO SCH ×2 (08:29→20:04)
[2016-11-03] MEDS: SODIUM CHLORIDE 0.9% FLUSH 5 ML FLUSH FLUSH SCH ×2 (08:29→20:03)
[2016-11-03] MEDS: VENLAFAXINE HCL XR 75 MG CAP PO SCH (08:29)
[2016-11-03] MEDS: INSULIN DETEMIR 100 UNITS/ML VIAL SQ SCH ×2 (08:29→20:06)
[2016-11-03] MEDS: METOPROLOL TARTRATE 25 MG TAB PO SCH ×2 (08:29→20:04)
[2016-11-03] MEDS: ATORVASTATIN 20 MG TAB PO SCH (08:29)
[2016-11-03] MEDS: RESP: ALBUTEROL 2.5 MG/IPRATROPIUM 0.5 MG NEB (SCH) NEB (08:57)
[2016-11-03] MEDS: DOCUSATE SODIUM 100 MG CAP PO SCH (14:30)
--- NOTE | 2016-11-03 15:15 | HHI.PR ---
Subjective Remarks The patient was sitting up in bed. He wanted to know what the results of the tests were. Nursing was at the bedside and reported that the patient appears to have respiratory distress when sleeping. The patient says he has been having too many bowel movements and would like to put a hold on his stool softeners. No other acute complaints. Objective Vitals Vital Signs Date Time Temp Pulse Resp B/P Pulse Ox O2 Delivery O2 Flow Rate FiO2 11/03/16 12:00 97.8 95 18 154/70 93 11/03/16 09:00 92 Nasal Cannula 4.00 11/03/16 08:15 93 11/03/16 08:00 96.9 93 19 107/63 93 11/03/16 04:00 97.7 87 18 137/64 92 11/03/16 00:00 96.5 103 18 131/73 88 11/02/16 20:15 98 Nasal Cannula 4.00 11/02/16 20:00 96.5 95 18 108/53 85 11/02/16 16:00 95.6 95 17 136/73 90 I/O 11/02/16 11/02/16 11/02/16 11/03/16 11/03/16 11/03/16 07:00 15:00 23:00 07:00 15:00 23:00 Intake Total 256 ml 414 ml 820 ml 240 ml Output Total 300 ml 800 ml Balance -44 ml -386 ml 820 ml 240 ml Intake Oral 0 ml 240 ml 720 ml 240 ml IV Total 256 ml 174 ml 100 ml Output Urine Total 300 ml 800 ml # Voids 3 3 # Bowel Movements 0 2 3 3 Result Diagram: 10/31/16 0414 11/02/16 0400 Imaging Last Impressions Myocardial Perfusion Scan Nuc Med 11/02/16 0600 Signed Impressions: Service Date/Time: Wednesday, November 02, 2016 09:10 - CONCLUSION: 1. Large sized moderate severity fixed defect involving the inferolateral wall including the apex. Ischemia is not excluded. No wall motion abnormalities are identified RISK CATEGORY: Intermediate (1-3%% Annual Mortality Rate) Ben Aden MD Chest X-Ray 11/01/16 0000 Signed Impressions: Service Date/Time: October 11:54 - CONCLUSION: Diffuse pulmonary vascular prominence left greater than right. No definite focal infiltrate. Garett Layton MD CT Angiography 10/30/16 0000 Signed Impressions: Service Date/Time: Sunday, October 30, 2016 14:54 - CONCLUSION: The multiple pulmonary emboli seen in August have completely resolved. I don't see any residual emboli on today's exam. There is new airspace disease in the left upper lobe possible pneumonia. Garett Layton MD Abdomen X-Ray 10/30/16 0000 Signed Impressions: Service Date/Time: Sunday, October 30, 2016 14:47 - CONCLUSION: Normal examination. Bony prominence of the right pubic symphysis Garett Layton MD Objective Remarks GENERAL: This is a well-nourished, well-developed patient, in no apparent distress. SKIN: No rashes, ecchymoses or lesions. Cool and dry. HEAD: Atraumatic. Normocephalic. No temporal or scalp tenderness. EYES: Extraocular motions intact. No scleral icterus. No injection or drainage. CARDIOVASCULAR: Tachycardic without murmurs, gallops, or rubs. RESPIRATORY: Poor respiratory effort. Scattered rhonchi. GASTROINTESTINAL: Abdomen soft, nondistended. Nontender to palpation. MUSCULOSKELETAL: Extremities without clubbing, cyanosis, trace edema. NEUROLOGICAL: Awake and alert. No focal deficits. Motor and sensory grossly within normal limits. Five out of 5 muscle strength in all muscle groups. Normal speech. PSYCH: Calm. Medications and IVs Current Medications Medications (Trade) Dose Ordered Sig/Dario Route Start Time Stop Time Status Last Admin (Ecotrin Ec) 81 mg DAILY PO 10/31/16 09:00 11/03/16 08:28 (Lipitor) 20 mg DAILY PO 10/31/16 09:00 11/03/16 08:29 (Mag-Ox) 400 mg DAILY PO 10/31/16 09:00 11/03/16 08:28 (Protonix) 40 mg DAILY PO 10/31/16 09:00 11/03/16 08:28 (Lyrica) 75 mg BID PO 10/30/16 21:00 11/03/16 08:29 (Xarelto) 15 mg BID PO 10/30/16 21:00 11/03/16 08:28 (Effexor Xr) 150 mg DAILY PO 10/31/16 09:00 11/03/16 08:29 (Lopressor) 12.5 mg Q12HR PO 10/30/16 21:00 11/03/16 08:29 (D50w (Vial) Inj) 25 ml UNSCH PRN IV PUSH 10/30/16 14:30 (Glucagon Inj) 1 mg UNSCH PRN OTHER 10/30/16 14:30 (NS Flush) 2 ml UNSCH PRN FLUSH 10/30/16 14:30 10/31/16 01:09 (NS Flush) 2 ml BID FLUSH 10/30/16 21:00 11/03/16 08:29 (Tylenol) 650 mg Q4H PRN PO 10/30/16 14:30 10/31/16 01:47 (Zofran Inj) 4 mg Q6H PRN IVP 10/30/16 14:30 (Dulcolax Supp) 10 mg DAILY PRN MT 10/30/16 14:30 (Colace) 100 mg Q12H PO 10/30/16 14:30 11/01/16 12:49 Naloxone HCl 0.4 mg 0.4 mg UNSCH PRN IV 10/30/16 14:30 (Vancomycin Consult Pharmacy) 0 ml @ 0 mls/hr UNSCH OTHER 10/30/16 14:30 (Robitussin Ac 200-20 Mg/10 ml Liq) 10 ml Q4H PRN PO 10/30/16 16:00 11/02/16 01:36 (Roxicodone) 5 mg Q4H PRN PO 10/30/16 15:00 10/30/16 18:38 (Roxicodone) 10 mg Q4H PRN PO 10/30/16 15:00 11/03/16 01:13 Hydromorphone HCl 0.5 mg 0.5 mg Q4H PRN IV PUSH 10/30/16 15:00 11/03/16 04:49 (Zosyn 4.5 Gm Premix) 100 ml @ 200 mls/hr Q6H IV 10/30/16 15:00 11/03/16 08:28 Insulin Detemir 25 units 25 units Q12HR SQ 10/30/16 21:00 11/03/16 08:29 (Vancomycin Inj/ NS 250 ml Inj) 262.5 ml @ 250 mls/hr Q12H IV 10/30/16 17:00 11/03/16 04:25 (Flomax) 0.4 mg DAILY PO 10/31/16 11:30 11/03/16 08:28 (Vasotec Inj) 1.25 mg Q6H PRN IV PUSH 10/31/16 11:30 (Cozaar) 50 mg DAILY PO 11/02/16 09:00 11/03/16 08:28 (Ambien) 5 mg HS PRN PO 11/02/16 11:45 A/P Assessment and Plan HCAP/ acute respiratory failure The patient was given Rocephin and azithromycin in the emergency department. He was recently treated for bilateral pneumonia. CT showed left upper airspace disease. He required BiPAP for a period of time. ABG did show hypoxemia. Repeat CXR stable. - continue vancomycin and Zosyn. - Sputum culture ordered. Follow blood culture data. NGTD. - Duonebs every 6 hours while awake and as needed. - antitussives as needed. - Acapella. - wean O2 as tolerated. On 4L NC 11/03. - encourage ambulation. Add PT. - check an ABG and repeat CXR in AM. Chest pain with mildly elevated troponin Troponin peaked at 0.58- possibly demand ischemia in the setting of pneumonia. The pt has had elevated trops in the past s/t pneumonia. EKG reveals sinus rhythm with inverted T waves in V6 and slight ST depression. Recent cardiac echocardiogram 08/29/2016 shows EF 55-60%. Cardiology consult appreciated. Echo with EF 50-55%, mild . Stress test with: Large sized moderate severity fixed defect involving the inferolateral wall including the apex; Ischemia is not excluded; No wall motion abnormalities are identified - Continuous telemetry. - follow up with cardiology. Diabetes mellitus insulin-dependent Patient takes Lantus 45 units twice a day at home. Hemoglobin A1c 08/03/2016 9.3% . Glucose well controlled 11/03. - will decrease to Levemir 25 units twice a day. Adjust as needed. - Accu-Cheks before meals at bedtime with low-dose sliding scale insulin coverage. Hypertension Patient reports his blood pressure at home has been running low systolic of 100 and recently had his blood pressure medication increased. Blood pressure fluctuates. - increased losartan to 50 mg daily and continuing metoprolol at 12.5 mg twice a day. - Monitor vital signs. - Vasotec as needed. History of pulmonary venous embolism CTA negative for PE. - continue Xarelto. Urinary retention A Cuellar catheter was placed and the patient's abdominal distention improved. - remove Cuellar. Urinating well. - Continue Flomax. DVT prophylaxis: patient is on Xarelto Discharge Planning Awaiting clinical improvement. Samir Nick DO Nov 03, 2016 15:15
[2016-11-03 18:24] LABS: BLOOD GAS BASE EXCESS 0.4 mmol/L (-2-2); BLOOD GAS CARBOXYHEMOGLOBIN 1.7 % (0-4); BLOOD GAS HCO3 27 mmol/L (22-26); BLOOD GAS METHEMOGLOBIN 0.9 % (0-2); BLOOD GAS O2 HGB SATURATION 79 % (90-100); BLOOD GAS PCO2 64 mmHg (38-42); BLOOD GAS PO2 52 mmHg (61-120); BLOOD GAS TOTAL HGB 12.6 G/DL (12.0-16.0); TEMP CORR TO 98.6
[2016-11-03 18:27] LABS: CRITICAL VALUE YES; DRAW SITE RT RADIAL; LITER FLOW 4 L/M; NUMBER OF ARTERIAL PUNCTURES 1; OXYGEN DEVICE NASAL CANNULA; STAT NO; ULNAR PULSE PRESENT
--- NOTE | 2016-11-03 19:08 | RADRPT ---
EXAM DATE/TIME: 11/03/2016 18:54 [facility] COMPARISON: CHEST SINGLE AP, November 01, 2016, 11:54. INDICATIONS : Evaluate for pneumonia. Shortness of breath. MEDICAL HISTORY : Hypertension. Chronic obstructive pulmonary disease. Hypercholesterolemia. CVA. GERD. Diabetes. SURGICAL HISTORY : None. ENCOUNTER: Subsequent ACUITY: 1 week PAIN SCORE: 0/10 LOCATION: chest FINDINGS: A single view of the chest demonstrates the lungs to be symmetrically aerated without evidence of mas s, infiltrate or effusion. The cardiomediastinal contours are unremarkable. Osseous structures demo nstrate plate and screw fixation of the left clavicle.. CONCLUSION: No definite consolidation. Octavio Cintron MD on November 03, 2016 at 19:06 Board Certified Radiologist. This report was verified electronically.
[2016-11-03] MEDS: RESP: ALBUTEROL 2.5 MG/IPRATROPIUM 0.5 MG NEB (PRN) NEB (20:46)
[2016-11-03 22:43] LABS: BLOOD GAS CARBOXYHEMOGLOBIN 1.5 % (0-4); BLOOD GAS HCO3 27 mmol/L (22-26); BLOOD GAS METHEMOGLOBIN 1.1 % (0-2); BLOOD GAS O2 HGB SATURATION 89 % (90-100); BLOOD GAS OXYGEN CONTENT 14.9 Vol % (12.0-20.0); BLOOD GAS PCO2 56 mmHg (38-42); BLOOD GAS PO2 67 mmHg (61-120); BLOOD GAS TOTAL HGB 11.9 G/DL (12.0-16.0); TEMP CORR TO 98.6
[2016-11-03 22:47] LABS: CRITICAL VALUE YES; DRAW SITE RT RADIAL; FIO2 50 %; LITER FLOW 6 L/M; OXYGEN DEVICE Venti Mask
[2016-11-03 22:48] LABS: NUMBER OF ARTERIAL PUNCTURES 1; STAT YES; ULNAR PULSE PRESENT
[2016-11-03] MEDS ORDERED: LORazepam 2 MG/ML VIAL IV PUSH ONE (23:30)
[2016-11-04] VITALS (19 sets, daily range): BP systolic 111–146; BP diastolic 65–85; PULSE 66–118; RESP 20–28; TEMP 97.8–99; O2SAT 92–100
[2016-11-04] MEDS: RESP: ALBUTEROL 2.5 MG/IPRATROPIUM 0.5 MG NEB (PRN) NEB (00:52)
[2016-11-04] MEDS: PIPERACIL-TAZO 4.5 GM PREMIX 100 ML IV SCH ×4 (02:03→22:00)
[2016-11-04] MEDS: DOCUSATE SODIUM 100 MG CAP PO SCH ×2 (02:30→14:11)
[2016-11-04] MEDS: VANCOMYCIN INJ 1,250 MG in SODIUM CHLOR 0.9% 250 ML INJ 250 ML IV SCH ×2 (05:00→18:07)
[2016-11-04] MEDS: INSULIN ASPART SUPPLEMENTAL SCALE SQ SCH ×4 (06:26→22:18)
[2016-11-04 06:32] LABS: BLOOD GAS BASE EXCESS -2.1 mmol/L (-2-2); BLOOD GAS CARBOXYHEMOGLOBIN 1.2 % (0-4); BLOOD GAS HCO3 24 mmol/L (22-26); BLOOD GAS METHEMOGLOBIN 0.9 % (0-2); BLOOD GAS O2 HGB SATURATION 91 % (90-100); BLOOD GAS OXYGEN CONTENT 16.6 Vol % (12.0-20.0); BLOOD GAS PCO2 53 mmHg (38-42); BLOOD GAS PO2 76 mmHg (61-120); BLOOD GAS TOTAL HGB 12.9 G/DL (12.0-16.0); CRITICAL VALUE YES; DRAW SITE RT RADIAL; FIO2 50 %; LITER FLOW 6 L/M; NUMBER OF ARTERIAL PUNCTURES 1; OXYGEN DEVICE Venti Mask; STAT NO; TEMP CORR TO 98.6; ULNAR PULSE PRESENT
[2016-11-04] MEDS: MAGNESIUM OXIDE 400 MG TAB PO SCH (08:50)
[2016-11-04] MEDS: METOPROLOL TARTRATE 25 MG TAB PO SCH ×2 (08:50→21:58)
[2016-11-04] MEDS: TAMSULOSIN HCL 0.4 MG CAP PO SCH (08:51)
[2016-11-04] MEDS: ASPIRIN EC 81 MG TABEC PO SCH (08:51)
[2016-11-04] MEDS: RIVAROXABAN 15 MG TAB PO SCH ×2 (08:51→21:00)
[2016-11-04] MEDS: PANTOPRAZOLE SOD 40 MG DELAYED RELEASE TAB PO SCH (08:51)
[2016-11-04] MEDS: ATORVASTATIN 20 MG TAB PO SCH (08:52)
[2016-11-04] MEDS: LOSARTAN 50 MG TAB PO SCH (08:52)
[2016-11-04] MEDS: FUROSEMIDE 40 MG/4 ML VIAL IV PUSH SCH ×2 (08:53→18:07)
[2016-11-04] MEDS: SODIUM CHLORIDE 0.9% FLUSH 5 ML FLUSH FLUSH SCH ×2 (08:54→21:58)
[2016-11-04] MEDS: INSULIN DETEMIR 100 UNITS/ML VIAL SQ SCH ×2 (09:01→22:18)
[2016-11-04] MEDS: methylPREDNISolone SOD SUCC 40 MG/1 ML VIAL IV PUSH SCH ×4 (09:01→23:40)
[2016-11-04] MEDS: VENLAFAXINE HCL XR 75 MG CAP PO SCH (09:02)
[2016-11-04] MEDS: PREGABALIN 75 MG CAP PO SCH ×2 (10:15→21:58)
[2016-11-04 11:40] LABS: BLOOD GAS BASE EXCESS 1.3 mmol/L (-2-2); BLOOD GAS CARBOXYHEMOGLOBIN 1.2 % (0-4); BLOOD GAS HCO3 27 mmol/L (22-26); BLOOD GAS METHEMOGLOBIN 0.8 % (0-2); BLOOD GAS O2 HGB SATURATION 90 % (90-100); BLOOD GAS OXYGEN CONTENT 16.8 Vol % (12.0-20.0); BLOOD GAS PCO2 60 mmHg (38-42); BLOOD GAS PO2 70 mmHg (61-120); BLOOD GAS TOTAL HGB 13.2 G/DL (12.0-16.0); TEMP CORR TO 98.6
[2016-11-04 11:41] LABS: CRITICAL VALUE YES; DRAW SITE RT RADIAL; FIO2 50 %; NUMBER OF ARTERIAL PUNCTURES 1; OXYGEN DEVICE Venti Mask; STAT YES; ULNAR PULSE PRESENT
[2016-11-04] MEDS: RESP: ALBUTEROL 2.5 MG/IPRATROPIUM 0.5 MG NEB (SCH) NEB ×3 (11:46→20:15)
--- NOTE | 2016-11-04 11:55 | HHI.PR ---
Subjective Remarks The pt was confused. He didn't want to wear the BiPAP. He didn't know why he needed to wear it. He was in a vest restraint. Respiratory therapy at the bedside. Discussed with nursing. Objective Vitals Vital Signs Date Time Temp Pulse Resp B/P Pulse Ox O2 Delivery O2 Flow Rate FiO2 11/04/16 08:22 92 Venturi Mask 50 11/04/16 07:00 97 Venturi Mask 6.00 11/04/16 06:34 92 50 11/04/16 06:00 118 11/04/16 04:00 101 11/04/16 04:00 96 Venturi Mask 6.00 50 11/04/16 04:00 98.9 101 24 111/80 97 11/04/16 02:00 97 11/04/16 01:00 97 11/04/16 00:53 97 50 11/04/16 00:45 97.9 98 24 137/65 93 11/03/16 21:05 20 11/03/16 21:05 20 11/03/16 20:50 92 Venturi Mask 50 11/03/16 20:29 117 11/03/16 20:00 90 Venturi Mask 6.00 11/03/16 20:00 98.6 103 18 141/68 92 11/03/16 18:45 91 50 11/03/16 16:00 97.9 97 19 125/73 93 11/03/16 12:00 97.8 95 18 154/70 93 I/O 11/03/16 11/03/16 11/03/16 11/04/16 11/04/16 11/04/16 07:00 15:00 23:00 07:00 15:00 23:00 Intake Total 240 ml 240 ml 240 ml 500 ml Output Total 500 ml Balance 240 ml 240 ml 240 ml 0 ml Intake Oral 240 ml 240 ml 240 ml 0 ml IV Total 500 ml Output Urine Total 500 ml # Voids 3 3 2 # Bowel Movements 3 1 1 1 Result Diagram: 10/31/16 0414 11/04/16 0359 Imaging Last Impressions Chest X-Ray 11/03/16 2153 Signed Impressions: Service Date/Time: Thursday, November 03, 2016 18:54 - CONCLUSION: No definite consolidation. Octavio Cintron MD Myocardial Perfusion Scan Nuc Med 11/02/16 0600 Signed Impressions: Service Date/Time: Wednesday, November 02, 2016 09:10 - CONCLUSION: 1. Large sized moderate severity fixed defect involving the inferolateral wall including the apex. Ischemia is not excluded. No wall motion abnormalities are identified RISK CATEGORY: Intermediate (1-3%% Annual Mortality Rate) Ben Aden MD CT Angiography 10/30/16 0000 Signed Impressions: Service Date/Time: Sunday, October 30, 2016 14:54 - CONCLUSION: The multiple pulmonary emboli seen in August have completely resolved. I don't see any residual emboli on today's exam. There is new airspace disease in the left upper lobe possible pneumonia. Garett Layton MD Abdomen X-Ray 10/30/16 0000 Signed Impressions: Service Date/Time: Sunday, October 30, 2016 14:47 - CONCLUSION: Normal examination. Bony prominence of the right pubic symphysis Garett Layton MD Objective Remarks GENERAL: This is a well-nourished, well-developed patient, confused. SKIN: No rashes, ecchymoses or lesions. Diaphoretic. HEAD: Atraumatic. Normocephalic. No temporal or scalp tenderness. EYES: Extraocular motions intact. No scleral icterus. No injection or drainage. CARDIOVASCULAR: Tachycardic without murmurs, gallops, or rubs. RESPIRATORY: Poor respiratory effort. Bilateral crackles. GASTROINTESTINAL: Abdomen soft, nondistended. Nontender to palpation. MUSCULOSKELETAL: Extremities without clubbing, cyanosis, trace edema. NEUROLOGICAL: Awake and alert. No focal deficits. Motor and sensory grossly within normal limits. Five out of 5 muscle strength in all muscle groups. Normal speech. PSYCH: Mildly agitated. Medications and IVs Current Medications Medications (Trade) Dose Ordered Sig/Dario Route Start Time Stop Time Status Last Admin (Ecotrin Ec) 81 mg DAILY PO 10/31/16 09:00 11/04/16 08:51 (Lipitor) 20 mg DAILY PO 10/31/16 09:00 11/04/16 08:52 (Mag-Ox) 400 mg DAILY PO 10/31/16 09:00 11/04/16 08:50 (Protonix) 40 mg DAILY PO 10/31/16 09:00 11/04/16 08:51 (Lyrica) 75 mg BID PO 10/30/16 21:00 11/04/16 10:15 (Xarelto) 15 mg BID PO 10/30/16 21:00 11/04/16 08:51 (Effexor Xr) 150 mg DAILY PO 10/31/16 09:00 11/04/16 09:02 (Lopressor) 12.5 mg Q12HR PO 10/30/16 21:00 11/04/16 08:50 (D50w (Vial) Inj) 25 ml UNSCH PRN IV PUSH 10/30/16 14:30 (Glucagon Inj) 1 mg UNSCH PRN OTHER 10/30/16 14:30 (NS Flush) 2 ml UNSCH PRN FLUSH 10/30/16 14:30 10/31/16 01:09 (NS Flush) 2 ml BID FLUSH 10/30/16 21:00 11/04/16 08:54 (Tylenol) 650 mg Q4H PRN PO 10/30/16 14:30 10/31/16 01:47 (Zofran Inj) 4 mg Q6H PRN IVP 10/30/16 14:30 (Dulcolax Supp) 10 mg DAILY PRN [place] 10/30/16 14:30 (Colace) 100 mg Q12H PO 10/30/16 14:30 11/01/16 12:49 Naloxone HCl 0.4 mg 0.4 mg UNSCH PRN IV 10/30/16 14:30 (Vancomycin Consult Pharmacy) 0 ml @ 0 mls/hr UNSCH OTHER 10/30/16 14:30 (Robitussin Ac 200-20 Mg/10 ml Liq) 10 ml Q4H PRN PO 10/30/16 16:00 11/02/16 01:36 (Roxicodone) 5 mg Q4H PRN PO 10/30/16 15:00 11/04/16 10:15 (Roxicodone) 10 mg Q4H PRN PO 10/30/16 15:00 11/03/16 23:44 Hydromorphone HCl 0.5 mg 0.5 mg Q4H PRN IV PUSH 10/30/16 15:00 11/03/16 23:47 (Zosyn 4.5 Gm Premix) 100 ml @ 200 mls/hr Q6H IV 10/30/16 15:00 11/04/16 08:52 Insulin Detemir 25 units 25 units Q12HR SQ 10/30/16 21:00 11/04/16 09:01 (Vancomycin Inj/ NS 250 ml Inj) 262.5 ml @ 250 mls/hr Q12H IV 10/30/16 17:00 11/04/16 05:00 (Flomax) 0.4 mg DAILY PO 10/31/16 11:30 11/04/16 08:51 (Vasotec Inj) 1.25 mg Q6H PRN IV PUSH 10/31/16 11:30 (Cozaar) 50 mg DAILY PO 11/02/16 09:00 11/04/16 08:52 (Ambien) 5 mg HS PRN PO 11/02/16 11:45 (SoluMEDROL INJ) 40 mg Q6HR IV PUSH 11/04/16 08:30 11/04/16 09:01 (Lasix Inj) 40 mg BID@09,18 IV PUSH 11/04/16 09:00 11/04/16 08:53 Miscellaneous Information SPECIFIC LAB TO BE DRAWN:VANCOMY... ONCE ONCE XX 11/05/16 04:45 11/05/16 04:46 A/P Assessment and Plan HCAP/ acute respiratory failure The patient was given Rocephin and azithromycin in the emergency department. He was recently treated for bilateral pneumonia. CT showed left upper airspace disease. He required BiPAP for a period of time. ABG did show hypercarbic respiratory failure. - continue vancomycin and Zosyn. - Sputum culture ordered. Follow blood culture data. NGTD. - Duonebs standing and as needed. - antitussives as needed. - Acapella. - Start Solu-Medrol. - Resume BiPAP and follow ABG. - encourage ambulation. Add PT. - Pulmonology and wine pasteurizer consult requested. - Start Lasix 40 mg IV twice a day. Place Cuellar. Chest pain with mildly elevated troponin Troponin peaked at 0.58- possibly demand ischemia in the setting of pneumonia. The pt has had elevated trops in the past s/t pneumonia. EKG reveals sinus rhythm with inverted T waves in V6 and slight ST depression. Recent cardiac echocardiogram 08/29/2016 shows EF 55-60%. Cardiology consult appreciated. Echo with EF 50-55%, mild . Stress test with: Large sized moderate severity fixed defect involving the inferolateral wall including the apex; Ischemia is not excluded; No wall motion abnormalities are identified - Continuous telemetry. - follow up with cardiology. Diabetes mellitus insulin-dependent Patient takes Lantus 45 units twice a day at home. Hemoglobin A1c 08/03/2016 9.3% . Glucose well controlled 11/04. - will decrease to Levemir 25 units twice a day. Adjust as needed. - Accu-Cheks before meals at bedtime with low-dose sliding scale insulin coverage. Hypertension Patient reports his blood pressure at home has been running low systolic of 100 and recently had his blood pressure medication increased. Blood pressure fluctuates. - increased losartan to 50 mg daily and continuing metoprolol at 12.5 mg twice a day. - Monitor vital signs. - Vasotec as needed. History of pulmonary venous embolism CTA negative for PE. - continue Xarelto. Renal insufficiency The patient has had elevated creatinine in the past. - Follow BMP while being diuresed. DVT prophylaxis: patient is on Xarelto Discharge Planning Awaiting clinical improvement. Transfer to wine pasteurizer service. Samir Nick DO Nov 04, 2016 11:55
--- NOTE | 2016-11-04 13:15 | MB ---
cc: Jhonathan WERNER M.D. DATE OF CONSULTATION: 11/04/2016 REASON FOR CONSULTATION: HISTORY OF PRESENT ILLNESS: Mr. Julio is a 55-year-old white male who was hospitalized here in late August with bilateral pulmonary emboli. Apparently he did well until several days prior to this admission when he became more short of breath and reported back to the hospital on October 30. He complained of productive cough with purulent sputum but no hemoptysis. A CTA was performed on admission in light of the prior history, and there was no evidence of residual embolism, but he now had a new left upper lobe infiltrate. The patient has a longstanding smoking history and underlying COPD. On admission, he was placed on broad-spectrum antibiotics for presumed healthcare-associated pneumonia and was placed in intensive care for worsening hypoxemia. He is currently on a Ventimask. He was not tolerating BiPAP earlier today due to confusion and agitation. He was pulling at the mask. Arterial blood gases earlier this morning were pH was 7.28, pCO2 53, pO2 56. Currently on a 50% VentiMask, his pO2 is 70 with a pH 7.28 and pCO2 rising to 60. He is confused and can provide no history at the time of this consultation so the information is taken from his chart. ALLERGIES: None listed. PAST MEDICAL HISTORY: 1. Previous stroke with left-sided weakness. 2. History of rotator cuff surgery. 3. Left hip surgery. 4. Carpal tunnel surgery. 5. No listed cardiovascular history of ischemic heart disease. 6. He is diabetic. 7. He has had hypertension. 8. Peripheral neuropathy thought to be related to diabetes. MEDICATIONS: Medications are reviewed in the electronic medical record. SOCIAL HISTORY, FAMILY HISTORY: Other social history and family history currently unknown to me and not relevant to the immediate problem. PHYSICAL EXAMINATION: VITAL SIGNS: Heart rate is 118, respirations 26, afebrile, blood pressure is 110/80. GENERAL: The patient is confused and diaphoretic. NECK: Neck veins are not distended. CHEST: Diffuse congestion with some wheezing. HEART: Regular rhythm. No harsh murmur. ABDOMEN: Abdomen is soft. EXTREMITIES: No peripheral edema. Nail beds are pink. The patient does move all four extremities. LABORATORY STUDIES: White count on the 1st was 4700, hemoglobin 13. Coags on admission were normal. Creatinine today is 1.5. BUN on the 2nd was 26. Electrolytes were normal then. IMAGING STUDIES: Chest x-ray yesterday: no clear consolidation, although on the CT on admission he did have a left upper lobe infiltrate. He had an abnormal nuclear study yesterday and cardiology is following him. CARDIOLOGY STUDIES: Echocardiogram on the 1st as part of an evaluation for elevated troponins, ejection fraction was 50%. He had mild aortic stenosis with mild mitral and tricuspid regurgitation. No regional wall abnormalities and no significant pulmonary hypertension noted, probably not accurately estimated. DISCUSSION: Mr. Julio has several comorbidities including diabetes, hypertension, potentially ischemic heart disease that is in evaluation now who presented with pneumonia and underlying COPD. Also had previous pulmonary embolism in August, although presenting angiogram on this admission shows no residual thromboembolic disease. The patient's immediate problem is probably the pneumonia and underlying COPD. Gases are marginal. He is confused and diaphoretic and will require careful monitoring and may need to be intubated. I have consulted and spoken to critical care and they will be by to see him a little later and monitor him as well. Will resume his aerosol therapies as a routine order. Continue antibiotics and IV corticosteroids. Further diagnostic and/or therapeutic intervention will depend on his response and ongoing clinical course. R. MD MORRIS Feliciano/BERNABE /11:52 AM /1:05 PM
--- NOTE | 2016-11-04 13:50 | PD.CONS ---
[facility] Service Critical Care Medicine Consult Requested By Dr. José Miguel Singleton Primary Care Physician [facility] History of Present Illness This is a 55-year-old male with a clinical history which includes hypertension, diabetes with diabetic neuropathy, hyperlipidemia, carpal tunnel syndrome, recent pneumonia August 2016 and recent pulmonary embolism August 2016. Patient persists emergency department today with reports of congestion and cough which began gradually on Saturday night into Saturday. Cough is productive of yellow/green sputum. Patient reports he believes he's had subjective fevers on Saturday but does not have a thermometer at home. Patient reports that he has left lower chest pain worse with coughing. Patient also has midsternal chest pain described as a ice pick sensation at rest and with cough. Patient does report diaphoresis, nausea and denies sweats with these symptoms. Patient reports he is fatigued more easily over the past few days and does report slight dizziness with standing or changing positions rapidly. Patient did have musculoskeletal pain with palpation of chest. Patient noted he lives alone and his by mouth intake is, "not that great ." Patient cannot remember the last bowel movement and does note abdominal distention/bloating. Patient was diagnosed to have a pneumonia and admitted to the floor on 10/30. He was transferred to the ICU on 10/31 for worsening respiratory distress. Patient was evaluated by cardiology for elevated troponin and a Meghna scan done on 11/02 revealed a fixed perfusion defect involving inferolateral wall including apex. Patient's respiratory status declined on 11/03 and he was placed on BiPAP. Critical care consult was requested by Dr. José Miguel singleton from pulmonary medicine for worsening respiratory failure and possible need for intubation. When I evaluated the patient he was on BiPAP with full facemask. He was awake and alert and appeared to be tolerating BiPAP well. He appeared diaphoretic at the time. He denied any chest pain. Review of Systems Except as stated in HPI: Detailed review of systems difficult to be obtained in view of respiratory distress requiring BiPAP Past Family Social History Past Medical History Hypertension Diabetes with diabetic neuropathy Hyperlipidemia Likely COPDwith history of smoking for at least 30 years. Stated he quit 10 months ago. CVAwith residual left-sided weakness Carpal tunnel syndrome Past Surgical History Left rotator cuff and shoulder surgery Left hip surgery Reported Medications Xarelto (Rivaroxaban) 15 Mg Tab 15 Mg PO BID Aspirin EC (Aspirin) 81 Mg Tabdr 81 Mg PO DAILY Magnesium Oxide 400 Mg Tab 400 Mg PO DAILY Pantoprazole (Pantoprazole Sodium) 40 Mg Tab 40 Mg PO DAILY Losartan (Losartan Potassium) 25 Mg Tab 50 Mg PO DAILY Atorvastatin (Atorvastatin Calcium) 20 Mg Tab 20 Mg PO DAILY Lyrica (Pregabalin) 75 Mg Cap 75 Mg PO BID Venlafaxine ER 24 HR (Venlafaxine HCl) 75 Mg Cap 75 Mg PO TID Lantus Inj (Insulin Glargine) 1,000 Unit/10 Ml Vial 45 Units SQ BID Novolog Inj (Insulin Aspart) 1,000 Unit/10 Ml Vial 0 SQ DIRECTED Sliding Scale as directed. Metoprolol Tartrate 25 Mg Tab 25 Mg PO BID Allergies: Coded Allergies: No Known Allergies (Unverified , 10/30/16) Administered Medications Medications (Trade) Dose Ordered Sig/Dario Route PRN Reason Start Time Stop Time Status Last Admin Dose Admin Aspirin (Ecotrin Ec) 81 mg DAILY PO 10/31/16 09:00 11/04/16 08:51 Atorvastatin Calcium (Lipitor) 20 mg DAILY PO 10/31/16 09:00 11/04/16 08:52 Magnesium Oxide (Mag-Ox) 400 mg DAILY PO 10/31/16 09:00 11/04/16 08:50 Pantoprazole Sodium (Protonix) 40 mg DAILY PO 10/31/16 09:00 11/04/16 08:51 Pregabalin (Lyrica) 75 mg BID PO 10/30/16 21:00 11/04/16 10:15 Rivaroxaban (Xarelto) 15 mg BID PO 10/30/16 21:00 11/04/16 08:51 Venlafaxine HCl (Effexor Xr) 150 mg DAILY PO 10/31/16 09:00 11/04/16 09:02 Metoprolol Tartrate (Lopressor) 12.5 mg Q12HR PO 10/30/16 21:00 11/04/16 08:50 IV Flush (NS Flush) 2 ml UNSCH PRN FLUSH FLUSH AFTER USING IV ACCESS 10/30/16 14:30 10/31/16 01:09 IV Flush (NS Flush) 2 ml BID FLUSH 10/30/16 21:00 11/04/16 08:54 Acetaminophen (Tylenol) 650 mg Q4H PRN PO TEMP > 100.4 10/30/16 14:30 10/31/16 01:47 Docusate Sodium (Colace) 100 mg Q12H PO 10/30/16 14:30 11/01/16 12:49 Guaifenesin/ Codeine Phosphate (Robitussin Ac 200-20 Mg/10 ml Liq) 10 ml Q4H PRN PO COUGH 10/30/16 16:00 11/02/16 01:36 Oxycodone HCl (Roxicodone) 5 mg Q4H PRN PO pain 1-5 10/30/16 15:00 11/04/16 10:15 Oxycodone HCl (Roxicodone) 10 mg Q4H PRN PO pain 6-10 10/30/16 15:00 11/03/16 23:44 Hydromorphone HCl 0.5 mg 0.5 mg Q4H PRN IV PUSH Breakthrough pain 10/30/16 15:00 11/03/16 23:47 Piperacillin Sod/ Tazobactam Sod (Zosyn 4.5 Gm Premix) 100 ml @ 200 mls/hr Q6H IV 10/30/16 15:00 11/04/16 08:52 Insulin Detemir 25 units 25 units Q12HR SQ 10/30/16 21:00 11/04/16 09:01 Vancomycin HCl/ Sodium Chloride (Vancomycin Inj/ NS 250 ml Inj) 262.5 ml @ 250 mls/hr Q12H IV 10/30/16 17:00 11/04/16 05:00 Tamsulosin HCl (Flomax) 0.4 mg DAILY PO 10/31/16 11:30 11/04/16 08:51 Losartan Potassium (Cozaar) 50 mg DAILY PO 11/02/16 09:00 11/04/16 08:52 Methylprednisolone Sodium Succinate (SoluMEDROL INJ) 40 mg Q6HR IV PUSH 11/04/16 08:30 11/04/16 12:37 Furosemide (Lasix Inj) 40 mg BID@,18 IV PUSH 11/04/16 09:00 11/04/16 08:53 Physical Exam Vital Signs Vital Signs Date Time Temp Pulse Resp B/P Pulse Ox O2 Delivery O2 Flow Rate FiO2 11/04/16 12:00 79 11/04/16 12:00 99.0 79 28 133/80 95 3/5/17 11:52 94 50 11/04/16 11:52 96 BiPAP 50 11/04/16 11:15 26 11/04/16 11:15 26 11/04/16 10:00 84 11/04/16 08:22 92 Venturi Mask 50 11/04/16 08:00 96 11/04/16 08:00 98.8 96 24 145/82 97 11/04/16 07:00 97 Venturi Mask 6.00 11/04/16 06:34 92 50 11/04/16 06:00 118 11/04/16 04:00 101 11/04/16 04:00 96 Venturi Mask 6.00 50 11/04/16 04:00 98.9 101 24 111/80 97 11/04/16 02:00 97 11/04/16 01:00 97 11/04/16 00:53 97 50 11/04/16 00:45 97.9 98 24 137/65 93 11/03/16 20:50 92 Venturi Mask 50 11/03/16 20:29 117 11/03/16 20:00 90 Venturi Mask 6.00 11/03/16 20:00 98.6 103 18 141/68 92 11/03/16 18:45 91 50 11/03/16 16:00 97.9 97 19 125/73 93 Physical Exam HEENT/Neuro: No pallor or icterus, tongue moist, LAURA, Awake alert oriented 3 , nonfocal grossly, moving all 4 extremities. On BiPAP with full facemask Neck: No JVD Chest/pulmonary: On BiPAP with full facemask. Air entry decreased bilaterally at bases, scattered rhonchi. Cardiovascular: S1-S2 regular no gallop or murmur GI/abdomen: Soft, nontender, bowel sounds present Extremities: Warm bilaterally, no edema Laboratory Laboratory Tests Test 11/03/16 11/03/16 11/03/16 11/04/16 18:01 18:10 22:12 03:59 Ammonia 26 Vitamin B12 Level 835 Thyroid Stimulating Hormone 1.060 3rd Gen Blood Gas Puncture Site RT RADIAL RT RADIAL Blood Gas Patient Temperature 98.6 98.6 Blood Gas HCO3 27 27 Blood Gas Base Excess 0.4 1.0 Blood Gas Oxygen Saturation 79 89 Arterial Blood pH 7.25 7.30 Arterial Blood Partial 64 56 Pressure CO2 Arterial Blood Partial 52 67 Pressure O2 Arterial Blood Oxygen Content 14.0 14.9 Arterial Blood 1.7 1.5 Carboxyhemoglobin Arterial Blood Methemoglobin 0.9 1.1 Blood Gas Hemoglobin 12.6 11.9 Oxygen Delivery Device NASAL CANNULA Venti Mask Blood Gas Liter Flow 4 6 Blood Gas Inspired Oxygen 50 Creatinine 1.55 Estimat Glomerular Filtration 46 Rate Test 11/04/16 11/04/16 06:25 11:15 Blood Gas Puncture Site RT RADIAL RT RADIAL Blood Gas Patient Temperature 98.6 98.6 Blood Gas HCO3 24 27 Blood Gas Base Excess -2.1 1.3 Blood Gas Oxygen Saturation 91 90 Arterial Blood pH 7.28 7.28 Arterial Blood Partial 53 60 Pressure CO2 Arterial Blood Partial 76 70 Pressure O2 Arterial Blood Oxygen Content 16.6 16.8 Arterial Blood 1.2 1.2 Carboxyhemoglobin Arterial Blood Methemoglobin 0.9 0.8 Blood Gas Hemoglobin 12.9 13.2 Oxygen Delivery Device Venti Mask Venti Mask Blood Gas Liter Flow 6 Blood Gas Inspired Oxygen 50 50 Result Diagram: 10/31/16 0414 11/04/16 0359 Imaging Last Impressions Chest X-Ray 11/03/16 1833 Signed Impressions: Service Date/Time: Thursday, November 03, 2016 18:54 - CONCLUSION: No definite consolidation. Octavio Cintron MD Myocardial Perfusion Scan Nuc Med 11/02/16 0600 Signed Impressions: Service Date/Time: Wednesday, November 02, 2016 09:10 - CONCLUSION: 1. Large sized moderate severity fixed defect involving the inferolateral wall including the apex. Ischemia is not excluded. No wall motion abnormalities are identified RISK CATEGORY: Intermediate (1-3%% Annual Mortality Rate) Ben Aden MD CT Angiography 10/30/16 0000 Signed Impressions: Service Date/Time: Sunday, October 30, 2016 14:54 - CONCLUSION: The multiple pulmonary emboli seen in August have completely resolved. I don't see any residual emboli on today's exam. There is new airspace disease in the left upper lobe possible pneumonia. Garett Layton MD Abdomen X-Ray 10/30/16 0000 Signed Impressions: Service Date/Time: Sunday, October 30, 2016 14:47 - CONCLUSION: Normal examination. Bony prominence of the right pubic symphysis Garett Layton MD Assessment and Plan Assessment and Plan 55-year-old male with: COPD exacerbation Pneumonia History of bilateral pulmonary embolism Ischemic heart disease Positive troponin Acute respiratory failure requiring BiPAP Diabetes mellitus Hypertension Plan: Neuro: Will start Precedex to control anxiety for better tolerance of BiPAP. Follow neuro status. Cardiovascular: IV hydration, watch for hypotension. Continue Lasix/losartan/ aspirin/statin. Pulmonary: Continue BiPAP. Nebulizer treatments, Solu-Medrol. On anticoagulation for PE which will be continued. If respiratory status declines despite BiPAP, may require endotracheal intubation and mechanical ventilation. GI/liver: Nothing by mouth unless respiratory status permits by mouth intake. ID: Continue empiric antibiotic coverage with IV vancomycin/Zosyn. Add Zithromax. Check urine for strep pneumo and Legionella antigen. Nasal washings for influenza a and B negative. Blood cultures negative so far. Endocrine: SSI for glycemic control if needed Heme: Follow CBC, on anticoagulation with Xarelto for PE. Prophylaxis: SCDs/Xarelto for full anticoagulation. Condition critical. Patient in acute on chronic respiratory failure requiring BiPAP and may require endotracheal intubation. Discussed with Dr. José Miguel singleton, discussed with PRINCIPAL ARCHAEOLOGIST Time spent on critical care excluding procedures 60 minutes Elvin Miller MD Nov 04, 2016 13:50
[2016-11-04] MEDS: DEXMEDETOMIDINE INJ 50 ML IV SCH (13:51)
[2016-11-04] MEDS: AZITHROMYCIN INJ 500 MG in SODIUM CHLOR 0.9% 250 ML INJ 250 ML IV SCH (14:11)
[2016-11-04] MEDS ORDERED: ETOMIDATE 40 MG/20 ML VIAL ONE (16:44)
[2016-11-04] MEDS ORDERED: PROPOFOL 1000 MG/100 ML INJ 100 ML ONE (16:44)
[2016-11-04] MEDS ORDERED: SUCCINYLCHOLINE CHLORIDE 200 MG/10 ML VIAL ONE (16:45)
--- NOTE | 2016-11-04 17:35 | RADRPT ---
EXAM DATE/TIME: 11/04/2016 17:21 [facility] COMPARISON: CHEST SINGLE AP, November 03, 2016, 18:54. INDICATIONS : Post intubation. MEDICAL HISTORY : Hypertension. Gastroesophageal reflux disease. Chronic obstructive pulmonary disease. SURGICAL HISTORY : None. ENCOUNTER: Initial ACUITY: 1 day PAIN SCORE: Non-responsive. LOCATION: Bilateral chest FINDINGS: Plate and screw fixation of the left clavicle again seen. Endotracheal tube tip is noted 8 mm above t he sana. Enteric tube courses beneath the diaphragm. Mild interstitial prominence without consolida tion or effusion. Cardi megaly. CONCLUSION: Endotracheal tube and enteric tube placement as above. Octavio Cintron MD on November 04, 2016 at 17:33 Board Certified Radiologist. This report was verified electronically.
--- NOTE | 2016-11-04 17:56 | PD.PROCEDR ---
Procedure Note Procedure Procedure: Endotracheal intubation Preop diagnosis: Acute respiratory failure, pneumonia, COPD exacerbation Postop diagnosis: Same Indication: Impending respiratory arrest Sedation used: Etomidate 25 mg, fentanyl 200 mcg, succinylcholine 140 mg IV Procedure: Patient was preoxygenated with 100% oxygen via Ambu bag with bag mask ventilation, following induction of sedation and neuromuscular blockade, direct laryngoscopy was performed using a Mac 4 blade with good visualization of vocal cords. An 8 Welsh ET tube was passed through the vocal cords under direct visualization up to the 20 to centimeter laura and after inflating cuff of ET tube, correct placement was confirmed using bagging with good color change on CO2 detector, 5 point auscultation and chest rise with ventilation. Patient was connected to mechanical ventilation. Patient tolerated the procedure well with no immediate complications noted. Postprocedure chest x- ray was ordered. Elvin Miller MD Nov 04, 2016 17:56
[2016-11-04] MEDS: PROPOFOL 1000 MG/100 ML IV SCH ×2 (18:44→22:56)
[2016-11-05] VITALS (18 sets, daily range): BP systolic 132–160; BP diastolic 65–84; PULSE 65–97; RESP 20–22; TEMP 97.8–98.7; O2SAT 95–98
[2016-11-05 01:15] LABS: BLOOD GAS BASE EXCESS -0.2 mmol/L (-2-2); BLOOD GAS CARBOXYHEMOGLOBIN 0.9 % (0-4); BLOOD GAS HCO3 25 mmol/L (22-26); BLOOD GAS METHEMOGLOBIN 0.8 % (0-2); BLOOD GAS O2 HGB SATURATION 98 % (90-100); BLOOD GAS OXYGEN CONTENT 19.1 Vol % (12.0-20.0); BLOOD GAS PCO2 48 mmHg (38-42); BLOOD GAS PO2 348 mmHg (61-120); BLOOD GAS TOTAL HGB 13.3 G/DL (12.0-16.0); CRITICAL VALUE NO; DRAW SITE RT RADIAL; FIO2 100 %; NUMBER OF ARTERIAL PUNCTURES 1; STAT YES; TEMP CORR TO 98.6; ULNAR PULSE PRESENT
[2016-11-05 01:16] LABS: OXYGEN DEVICE VENTILATOR; VENT SETTINGS AC20/600/+10
[2016-11-05] MEDS: DOCUSATE SODIUM 100 MG CAP PO SCH ×3 (02:19→23:55)
[2016-11-05] MEDS: PROPOFOL 1000 MG/100 ML IV SCH ×9 (02:19→22:58)
[2016-11-05] MEDS: PIPERACIL-TAZO 4.5 GM PREMIX 100 ML IV SCH ×4 (02:20→21:37)
[2016-11-05 04:24] LABS: HEMATOCRIT 36.6 % (39.0-51.0); MEAN CELL VOLUME 86.5 FL (80.0-100.0); MEAN CORPUSCULAR HEMOGLOBIN 29.8 PG (27.0-34.0); MEAN CORPUSCULAR HGB CONC 34.5 % (32.0-36.0); PLATELET COUNT 231 TH/MM3 (150-450); RED BLOOD COUNT 4.23 MIL/MM3 (4.50-5.90); RED CELL DISTRIBUTION WIDTH 14.7 % (11.6-17.2); REVIEW FLAG FINAL; WHITE BLOOD COUNT 6.1 TH/MM3 (4.0-11.0)
[2016-11-05 04:42] LABS: BICARBONATE 27.1 MEQ/L (21.0-32.0); MAGNESIUM 2.4 MG/DL (1.5-2.5); POTASSIUM 3.7 MEQ/L (3.5-5.1)
[2016-11-05] MEDS ORDERED: PHARMACY ORDERED LAB XX ONE (04:45)
[2016-11-05] MEDS: VANCOMYCIN INJ 1,250 MG in SODIUM CHLOR 0.9% 250 ML INJ 250 ML IV SCH (05:27)
[2016-11-05] MEDS: methylPREDNISolone SOD SUCC 40 MG/1 ML VIAL IV PUSH SCH ×4 (05:27→23:54)
[2016-11-05] MEDS: HYDROmorphone HCL PF 1 MG/ML VIAL IV PUSH PRN ×2 (06:28→10:09)
[2016-11-05] MEDS: INSULIN ASPART SUPPLEMENTAL SCALE SQ SCH ×4 (06:34→21:58)
[2016-11-05] MEDS: RIVAROXABAN 15 MG TAB PO SCH ×3 (07:15→21:37)
[2016-11-05] MEDS: RESP: ALBUTEROL 2.5 MG/IPRATROPIUM 0.5 MG NEB (SCH) NEB ×4 (07:41→20:13)
[2016-11-05] MEDS: SODIUM CHLORIDE 0.9% FLUSH 5 ML FLUSH FLUSH SCH ×2 (08:25→21:36)
[2016-11-05] MEDS: FUROSEMIDE 40 MG/4 ML VIAL IV PUSH SCH ×2 (08:27→17:08)
[2016-11-05] MEDS: VENLAFAXINE HCL XR 75 MG CAP PO SCH (08:27)
[2016-11-05] MEDS: LOSARTAN 50 MG TAB PO SCH (08:27)
[2016-11-05] MEDS: TAMSULOSIN HCL 0.4 MG CAP PO SCH (08:28)
[2016-11-05] MEDS: ATORVASTATIN 20 MG TAB PO SCH (08:28)
[2016-11-05] MEDS: MAGNESIUM OXIDE 400 MG TAB PO SCH (08:28)
[2016-11-05] MEDS: PREGABALIN 75 MG CAP PO SCH ×2 (08:28→21:37)
[2016-11-05] MEDS: METOPROLOL TARTRATE 25 MG TAB PO SCH ×2 (08:28→21:37)
[2016-11-05] MEDS: PANTOPRAZOLE SOD 40 MG DELAYED RELEASE TAB PO SCH (09:00)
[2016-11-05] MEDS: ASPIRIN EC 81 MG TABEC PO SCH (09:05)
[2016-11-05] MEDS: INSULIN DETEMIR 100 UNITS/ML VIAL SQ SCH ×2 (09:07→21:38)
[2016-11-05] MEDS: OLANZapine 10 MG TAB PO SCH (12:27)
[2016-11-05] MEDS: HALOPERIDOL LACTATE 5 MG/ML AMP IV PUSH PRN ×2 (12:37→17:55)
[2016-11-05] MEDS: AZITHROMYCIN INJ 500 MG in SODIUM CHLOR 0.9% 250 ML INJ 250 ML IV SCH (14:14)
--- NOTE | 2016-11-05 19:10 | HHI.CCPN ---
Subjective Remarks/Hospital Course 11/04: This is a 55-year-old male with a clinical history which includes hypertension, diabetes with diabetic neuropathy, hyperlipidemia, carpal tunnel syndrome, recent pneumonia August 2016 and recent pulmonary embolism August 2016. Patient persists emergency department today with reports of congestion and cough which began gradually on Saturday night into Saturday. Cough is productive of yellow/green sputum. Patient reports he believes he's had subjective fevers on Saturday but does not have a thermometer at home. Patient reports that he has left lower chest pain worse with coughing. Patient also has midsternal chest pain described as a ice pick sensation at rest and with cough. Patient does report diaphoresis, nausea and denies sweats with these symptoms. Patient reports he is fatigued more easily over the past few days and does report slight dizziness with standing or changing positions rapidly. Patient did have musculoskeletal pain with palpation of chest. Patient noted he lives alone and his by mouth intake is, "not that great ." Patient cannot remember the last bowel movement and does note abdominal distention/bloating. Patient was diagnosed to have a pneumonia and admitted to the floor on 10/30. He was transferred to the ICU on 10/31 for worsening respiratory distress. Patient was evaluated by cardiology for elevated troponin and a Meghna scan done on 11/02 revealed a fixed perfusion defect involving inferolateral wall including apex. Patient's respiratory status declined on 11/03 and he was placed on BiPAP. Critical care consult was requested by Dr. José Miguel Singleton from pulmonary medicine for worsening respiratory failure and possible need for intubation. When I evaluated the patient he was on BiPAP with full facemask. He was awake and alert and appeared to be tolerating BiPAP well. He appeared diaphoretic at the time. He denied any chest pain. 11/05: He was intubated and placed on mechanical ventilation yesterday for worsening respiratory status. He remains sedated, orally intubated on mechanical ventilation. Tolerating tube feeds. Objective Vital Signs Date Time Temp Pulse Resp B/P Pulse Ox O2 Delivery O2 Flow Rate FiO2 11/05/16 18:08 97 50 11/05/16 18:00 97 11/05/16 16:00 98.7 22 134/72 11/05/16 08:00 Mechanical Ventilator 11/04/16 07:00 6.00 Intake and Output 11/04/16 11/04/1617 08:00 16:00 00:00 Intake Total 500 ml 986 ml 500 ml Output Total 500 ml 2400.0 ml Balance 0 ml 986 ml -1900.0 ml Result Diagram: 11/05/16 0346 11/05/16 0346 Other Results Microbiology Date/Time Procedure Status Source Growth 11/04/16 18:30 Legionella Antigen - Final Complete Urine Catheterized Urine PRESUMPTIVE NEGATIVE FOR LEGIONELLA P... 11/04/16 18:30 Streptococcus pneumoniae Antigen (M - Final Complete Urine Catheterized Urine PRESUMPTIVE NEGATIVE FOR STREPTOCOCCU... Imaging Last Impressions Chest X-Ray 11/03/16 1833 Signed Impressions: Service Date/Time: Thursday, November 03, 2016 18:54 - CONCLUSION: No definite consolidation. Octavio Cintron MD Myocardial Perfusion Scan Nuc Med 11/02/16 0600 Signed Impressions: Service Date/Time: Wednesday, November 02, 2016 09:10 - CONCLUSION: 1. Large sized moderate severity fixed defect involving the inferolateral wall including the apex. Ischemia is not excluded. No wall motion abnormalities are identified RISK CATEGORY: Intermediate (1-3%% Annual Mortality Rate) Ben Aden MD CT Angiography 10/30/16 0000 Signed Impressions: Service Date/Time: Sunday, October 30, 2016 14:54 - CONCLUSION: The multiple pulmonary emboli seen in August have completely resolved. I don't see any residual emboli on today's exam. There is new airspace disease in the left upper lobe possible pneumonia. Garett Layton MD Abdomen X-Ray 10/30/16 0000 Signed Impressions: Service Date/Time: Sunday, October 30, 2016 14:47 - CONCLUSION: Normal examination. Bony prominence of the right pubic symphysis Garett Layton MD Objective Remarks HEENT/ Neuro: Sedated, orally intubated, Pallor present, no icterus, tongue/ mucosa moist Neck: No JVD Chest/Pulm: on mech vent, good air entry bilaterally, scattered rhonchi, no wheezing or crackles CVS: S1-S2 regular, no murmur GI/abdomen: soft, nontender, bowel sounds sluggish Extremities: warm bilaterally, no edema Urinary Catheter: Yes Assessment to: Continue A/P Assessment and Plan 55-year-old male with: COPD exacerbation Pneumonia History of bilateral pulmonary embolism Ischemic heart disease Positive troponin Acute respiratory failure requiring BiPAP Diabetes mellitus Hypertension Plan: Neuro: Sedation with propofol, fentanyl gtt and zyprexa started 11/05 in view of agitation despite propofol. Daily sedation vacation. Cardiovascular: IV hydration, watch for hypotension. Continue Lasix/losartan/ aspirin/statin. Pulmonary: Continue mechanical ventilation. On anticoagulation for PE with Xarelto which will be continued. Vent bundle, bronchodilators, Solu-Medrol GI/liver: Tolerating tube feeds ID: Continue empiric antibiotic coverage with IV vancomycin/Zosyn/ Zithromax. Urine for strep pneumo and Legionella antigen negative. Nasal washings for influenza a and B negative. Blood cultures negative so far. Endocrine: SSI for glycemic control if needed Heme: Follow CBC, on anticoagulation with Xarelto for PE. Prophylaxis: SCDs/Xarelto for full anticoagulation. Condition critical. Patient in acute on chronic respiratory failure requiring mechanical ventilation Discussed with Dr. José Miguel singleton, discussed with REAL ESTATE ACCOUNT EXECUTIVE Time spent on critical care excluding procedures 35 minutes Elvni Miller MD Nov 05, 2016 19:10
[2016-11-05] MEDS: fentaNYL DRIP 250 ML IV SCH (19:54)
[2016-11-06] VITALS (18 sets, daily range): BP systolic 102–140; BP diastolic 55–71; PULSE 62–88; RESP 20–22; TEMP 97.8–100.2; O2SAT 93–98
[2016-11-06] MEDS: PROPOFOL 1000 MG/100 ML IV SCH ×9 (01:55→21:25)
[2016-11-06] MEDS: PIPERACIL-TAZO 4.5 GM PREMIX 100 ML IV SCH ×4 (03:37→21:25)
[2016-11-06] MEDS: methylPREDNISolone SOD SUCC 40 MG/1 ML VIAL IV PUSH SCH ×3 (05:24→17:58)
[2016-11-06] MEDS: INSULIN ASPART SUPPLEMENTAL SCALE SQ SCH ×4 (06:33→17:57)
[2016-11-06] MEDS: RESP: ALBUTEROL 2.5 MG/IPRATROPIUM 0.5 MG NEB (SCH) NEB ×4 (08:07→20:43)
[2016-11-06] MEDS: SODIUM CHLORIDE 0.9% FLUSH 5 ML FLUSH FLUSH SCH ×2 (09:00→21:25)
[2016-11-06] MEDS: VENLAFAXINE HCL XR 75 MG CAP PO SCH (09:00)
--- NOTE | 2016-11-06 10:04 | HHI.CCPN ---
Subjective Remarks/Hospital Course 11/04: This is a 55-year-old male with a clinical history which includes hypertension, diabetes with diabetic neuropathy, hyperlipidemia, carpal tunnel syndrome, recent pneumonia August 2016 and recent pulmonary embolism August 2016. Patient persists emergency department today with reports of congestion and cough which began gradually on Saturday night into Saturday. Cough is productive of yellow/green sputum. Patient reports he believes he's had subjective fevers on Saturday but does not have a thermometer at home. Patient reports that he has left lower chest pain worse with coughing. Patient also has midsternal chest pain described as a ice pick sensation at rest and with cough. Patient does report diaphoresis, nausea and denies sweats with these symptoms. Patient reports he is fatigued more easily over the past few days and does report slight dizziness with standing or changing positions rapidly. Patient did have musculoskeletal pain with palpation of chest. Patient noted he lives alone and his by mouth intake is, "not that great ." Patient cannot remember the last bowel movement and does note abdominal distention/bloating. Patient was diagnosed to have a pneumonia and admitted to the floor on 10/30. He was transferred to the ICU on 10/31 for worsening respiratory distress. Patient was evaluated by cardiology for elevated troponin and a Meghna scan done on 11/02 revealed a fixed perfusion defect involving inferolateral wall including apex. Patient's respiratory status declined on 11/03 and he was placed on BiPAP. Critical care consult was requested by Dr. José Miguel Singleton from pulmonary medicine for worsening respiratory failure and possible need for intubation. When I evaluated the patient he was on BiPAP with full facemask. He was awake and alert and appeared to be tolerating BiPAP well. He appeared diaphoretic at the time. He denied any chest pain. 11/05: He was intubated and placed on mechanical ventilation yesterday for worsening respiratory status. He remains sedated, orally intubated on mechanical ventilation. Tolerating tube feeds. 11/06: Remains sedated, orally intubated on mechanical ventilation. Tolerating tube feeds. Objective Vital Signs Date Time Temp Pulse Resp B/P Pulse Ox O2 Delivery O2 Flow Rate FiO2 11/06/16 08:10 97 50 11/06/16 06:00 62 11/06/16 04:00 97.8 20 129/69 11/05/16 19:00 Mechanical Ventilator 11/04/16 07:00 6.00 Intake and Output 11/05/16 11/05/16 11/06/16 08:00 16:00 00:00 Intake Total 635 ml 1658 ml 1263 ml Output Total 525.0 ml 950.0 ml 1000.0 ml Balance 110.0 ml 708.0 ml 263.0 ml Result Diagram: 11/05/16 0346 11/06/16 0350 Other Results Microbiology Date/Time Procedure Status Source Growth 11/04/16 18:30 Legionella Antigen - Final Complete Urine Catheterized Urine PRESUMPTIVE NEGATIVE FOR LEGIONELLA P... 11/04/16 18:30 Streptococcus pneumoniae Antigen (M - Final Complete Urine Catheterized Urine PRESUMPTIVE NEGATIVE FOR STREPTOCOCCU... Imaging Last Impressions Chest X-Ray 11/03/16 1833 Signed Impressions: Service Date/Time: Thursday, November 03, 2016 18:54 - CONCLUSION: No definite consolidation. Octavio Cintron MD Myocardial Perfusion Scan Nuc Med 11/02/16 0600 Signed Impressions: Service Date/Time: Wednesday, November 02, 2016 09:10 - CONCLUSION: 1. Large sized moderate severity fixed defect involving the inferolateral wall including the apex. Ischemia is not excluded. No wall motion abnormalities are identified RISK CATEGORY: Intermediate (1-3%% Annual Mortality Rate) Ben Aden MD CT Angiography 10/30/16 0000 Signed Impressions: Service Date/Time: Sunday, October 30, 2016 14:54 - CONCLUSION: The multiple pulmonary emboli seen in August have completely resolved. I don't see any residual emboli on today's exam. There is new airspace disease in the left upper lobe possible pneumonia. Garett Layton MD Abdomen X-Ray 10/30/16 0000 Signed Impressions: Service Date/Time: Sunday, October 30, 2016 14:47 - CONCLUSION: Normal examination. Bony prominence of the right pubic symphysis Garett Layton MD Objective Remarks HEENT/ Neuro: Sedated, orally intubated, Pallor present, no icterus, tongue/ mucosa moist Neck: No JVD Chest/Pulm: on mech vent, good air entry bilaterally, scattered rhonchi, no wheezing or crackles CVS: S1-S2 regular, no murmur GI/abdomen: soft, nontender, bowel sounds sluggish Extremities: warm bilaterally, no edema A/P Assessment and Plan 55-year-old male with: COPD exacerbation Pneumonia History of bilateral pulmonary embolism Ischemic heart disease Positive troponin Acute respiratory failure requiring BiPAP Diabetes mellitus Hypertension Plan: Neuro: Sedation with propofol, fentanyl gtt and zyprexa started 3/ in view of agitation despite propofol. Daily sedation vacation. Cardiovascular: IV hydration, watch for hypotension. Continue Lasix/losartan/ aspirin/statin. Pulmonary: Continue mechanical ventilation. On anticoagulation for PE with Xarelto which will be continued. Vent bundle, bronchodilators, Solu-Medrol GI/liver: Tolerating tube feeds ID: Continue empiric antibiotic coverage with IV vancomycin/Zosyn/ Zithromax. Urine for strep pneumo and Legionella antigen negative. Nasal washings for influenza a and B negative. Blood cultures negative so far. Endocrine: SSI for glycemic control if needed Heme: Follow CBC, on anticoagulation with Xarelto for PE. Prophylaxis: SCDs/Xarelto for full anticoagulation. Condition critical. Patient in acute on chronic respiratory failure requiring mechanical ventilation Discussed with Dr. José Miguel Singleton, discussed with [facility] [employer] Time spent on critical care excluding procedures 35 minutes Elvin iMller MD Nov 06, 2016 10:03
[2016-11-06] MEDS: MAGNESIUM OXIDE 400 MG TAB PO SCH (10:15)
[2016-11-06] MEDS: PANTOPRAZOLE SOD 40 MG DELAYED RELEASE TAB PO SCH (10:15)
[2016-11-06] MEDS: OLANZapine 10 MG TAB PO SCH (10:15)
[2016-11-06] MEDS: ATORVASTATIN 20 MG TAB PO SCH (10:15)
[2016-11-06] MEDS: ASPIRIN EC 81 MG TABEC PO SCH (10:15)
[2016-11-06] MEDS: RIVAROXABAN 15 MG TAB PO SCH ×2 (10:16→21:25)
[2016-11-06] MEDS: LOSARTAN 50 MG TAB PO SCH (10:16)
[2016-11-06] MEDS: TAMSULOSIN HCL 0.4 MG CAP PO SCH (10:16)
[2016-11-06] MEDS: PREGABALIN 75 MG CAP PO SCH ×2 (10:16→21:25)
[2016-11-06] MEDS: FUROSEMIDE 40 MG/4 ML VIAL IV PUSH SCH ×2 (10:16→17:58)
[2016-11-06] MEDS: METOPROLOL TARTRATE 25 MG TAB PO SCH ×2 (10:19→21:25)
[2016-11-06] MEDS: INSULIN DETEMIR 100 UNITS/ML VIAL SQ SCH ×2 (10:20→21:00)
[2016-11-06] MEDS: DOCUSATE SODIUM 100 MG CAP PO SCH (10:26)
[2016-11-06] MEDS ORDERED: GLUCAGON 1 MG/ML VIAL IM/SQ PRN (11:30)
[2016-11-06] MEDS: VANCOMYCIN INJ 1,250 MG in SODIUM CHLOR 0.9% 250 ML INJ 250 ML IV SCH (12:23)
[2016-11-06] MEDS: AZITHROMYCIN INJ 500 MG in SODIUM CHLOR 0.9% 250 ML INJ 250 ML IV SCH (14:02)
[2016-11-07] VITALS (17 sets, daily range): BP systolic 140–171; BP diastolic 66–81; PULSE 56–97; RESP 20–21; TEMP 98.5–99.1; O2SAT 93–99
[2016-11-07] MEDS: methylPREDNISolone SOD SUCC 40 MG/1 ML VIAL IV PUSH SCH ×4 (00:38→17:17)
[2016-11-07] MEDS: DOCUSATE SODIUM 100 MG CAP PO SCH ×2 (01:47→13:29)
[2016-11-07] MEDS: PROPOFOL 1000 MG/100 ML IV SCH ×9 (01:48→21:46)
[2016-11-07] MEDS: PIPERACIL-TAZO 4.5 GM PREMIX 100 ML IV SCH ×4 (02:38→20:13)
--- NOTE | 2016-11-07 05:11 | RADRPT ---
EXAM DATE/TIME: 11/07/2016 03:48 [facility] COMPARISON: CHEST SINGLE AP, November 04, 2016, 17:21. INDICATIONS : Shortness of breath. MEDICAL HISTORY : Hypertension. Gastroesophageal reflux disease. Chronic obstructive pulmonary disease. Hypercholes terolemia SURGICAL HISTORY : ORIF left clavicle ENCOUNTER: Subsequent ACUITY: 1 week PAIN SCORE: Non-responsive. LOCATION: Bilateral chest FINDINGS: A single view of the chest demonstrates developing atelectatic changes in the left lingular region. T here is also worsening left basilar effusion. Interstitial prominence suggests some degree of vascula r congestion or volume overload. Sideplate and osseous screws secure an old left clavicular fracture with sclerosis and degenerative changes in the left humeral head. Endotracheal tube is approximately 2 cm above the sana. Nasogastric tube enters the stomach . CONCLUSION: 1. Developing left basilar effusion/consolidation with linear atelectasis. 2. Interstitial prominence suggesting some degree of vascular congestion or volume overload. 3. Endotracheal tube approximately 2 cm above the sana. Kush Vigil MD on November 07, 2016 at 5:06 Board Certified Radiologist. This report was verified electronically.
[2016-11-07 05:35] LABS: AUTOMATED NEUTROPHIL # 8.2 TH/MM3 (1.8-7.7); BASOPHIL % 0.1 % (0.0-2.0); HEMATOCRIT 36.8 % (39.0-51.0); HEMO FLAGS DIFF FINAL; LYMPH % 7.2 % (9.0-44.0); LYMPHOCYTE # 0.7 TH/MM3 (1.0-4.8); MEAN CELL VOLUME 87.5 FL (80.0-100.0); MEAN CORPUSCULAR HEMOGLOBIN 29.3 PG (27.0-34.0); MEAN CORPUSCULAR HGB CONC 33.5 % (32.0-36.0); MONO % 9.6 % (0.0-8.0); NEUT % 83.1 % (16.0-70.0); PLATELET COUNT 257 TH/MM3 (150-450); RED BLOOD COUNT 4.21 MIL/MM3 (4.50-5.90); RED CELL DISTRIBUTION WIDTH 15.1 % (11.6-17.2); WHITE BLOOD COUNT 9.9 TH/MM3 (4.0-11.0)
[2016-11-07 05:49] LABS: ALKALINE PHOSPHATASE 99 U/L (45-117); ALT (GPT) 16 U/L (12-78); ANION GAP 7 MEQ/L (5-15); AST (GOT) 9 U/L (15-37); BICARBONATE 31.6 MEQ/L (21.0-32.0); BLOOD UREA NITROGEN 46 MG/DL (7-18); CHLORIDE 106 MEQ/L (98-107); GLOMERULAR FILTRATION RATE 51 ML/MIN (>89); POTASSIUM 4.1 MEQ/L (3.5-5.1); SODIUM (NA) 145 MEQ/L (136-145); TOTAL BILIRUBIN ADULT 0.4 MG/DL (0.2-1.0)
[2016-11-07] MEDS: INSULIN ASPART SUPPLEMENTAL SCALE SQ SCH ×4 (06:00→17:16)
[2016-11-07] MEDS: VANCOMYCIN INJ 1,250 MG in SODIUM CHLOR 0.9% 250 ML INJ 250 ML IV SCH (06:26)
[2016-11-07] MEDS: fentaNYL DRIP 250 ML IV SCH (06:34)
[2016-11-07] MEDS: PANTOPRAZOLE SOD 40 MG DELAYED RELEASE TAB PO SCH (07:52)
[2016-11-07] MEDS: VENLAFAXINE HCL XR 75 MG CAP PO SCH (07:52)
[2016-11-07] MEDS: TAMSULOSIN HCL 0.4 MG CAP PO SCH (07:52)
[2016-11-07] MEDS: RESP: ALBUTEROL 2.5 MG/IPRATROPIUM 0.5 MG NEB (SCH) NEB ×4 (08:20→20:23)
[2016-11-07] MEDS: SODIUM CHLORIDE 0.9% FLUSH 5 ML FLUSH FLUSH SCH ×2 (09:11→20:14)
[2016-11-07] MEDS: MAGNESIUM OXIDE 400 MG TAB PO SCH (09:12)
[2016-11-07] MEDS: METOPROLOL TARTRATE 25 MG TAB PO SCH ×2 (09:12→20:13)
[2016-11-07] MEDS: LOSARTAN 50 MG TAB PO SCH (09:12)
[2016-11-07] MEDS: PREGABALIN 75 MG CAP PO SCH ×2 (09:12→20:13)
[2016-11-07] MEDS: ASPIRIN EC 81 MG TABEC PO SCH (09:12)
[2016-11-07] MEDS: ATORVASTATIN 20 MG TAB PO SCH (09:12)
[2016-11-07] MEDS: FUROSEMIDE 40 MG/4 ML VIAL IV PUSH SCH ×2 (09:12→17:16)
[2016-11-07] MEDS: OLANZapine 10 MG TAB PO SCH (09:13)
[2016-11-07] MEDS: INSULIN DETEMIR 100 UNITS/ML VIAL SQ SCH (09:13)
[2016-11-07] MEDS: RIVAROXABAN 15 MG TAB PO SCH ×2 (09:13→20:13)
[2016-11-07] MEDS: MIDAZOLAM 100 MG/ML INJ 100 ML IV SCH (10:50)
[2016-11-07 12:22] LABS: C. DIFF EPI 027 PRESUMPTIVE NEGATIVE (NEGATIVE); C. DIFF TOXIN PCR NEGATIVE (NEGATIVE)
--- NOTE | 2016-11-07 12:56 | HHI.CCPN ---
Subjective Remarks/Hospital Course 11/04: This is a 55-year-old male with a clinical history which includes hypertension, diabetes with diabetic neuropathy, hyperlipidemia, carpal tunnel syndrome, recent pneumonia August 2016 and recent pulmonary embolism August 2016. Patient persists emergency department today with reports of congestion and cough which began gradually on Saturday night into Saturday. Cough is productive of yellow/green sputum. Patient reports he believes he's had subjective fevers on Saturday but does not have a thermometer at home. Patient reports that he has left lower chest pain worse with coughing. Patient also has midsternal chest pain described as a ice pick sensation at rest and with cough. Patient does report diaphoresis, nausea and denies sweats with these symptoms. Patient reports he is fatigued more easily over the past few days and does report slight dizziness with standing or changing positions rapidly. Patient did have musculoskeletal pain with palpation of chest. Patient noted he lives alone and his by mouth intake is, "not that great ." Patient cannot remember the last bowel movement and does note abdominal distention/bloating. Patient was diagnosed to have a pneumonia and admitted to the floor on 10/30. He was transferred to the ICU on 10/31 for worsening respiratory distress. Patient was evaluated by cardiology for elevated troponin and a Meghna scan done on 11/02 revealed a fixed perfusion defect involving inferolateral wall including apex. Patient's respiratory status declined on 11/03 and he was placed on BiPAP. Critical care consult was requested by Dr. José Miguel Singleton from pulmonary medicine for worsening respiratory failure and possible need for intubation. When I evaluated the patient he was on BiPAP with full facemask. He was awake and alert and appeared to be tolerating BiPAP well. He appeared diaphoretic at the time. He denied any chest pain. 11/05: He was intubated and placed on mechanical ventilation yesterday for worsening respiratory status. He remains sedated, orally intubated on mechanical ventilation. Tolerating tube feeds. 11/06: Remains sedated, orally intubated on mechanical ventilation. Tolerating tube feeds. Subjective 11/07: Currently afebrile. Requiring additional Versed for sedation. Positive BM. Tolerating tube feeding. Objective Vital Signs Date Time Temp Pulse Resp B/P Pulse Ox O2 Delivery O2 Flow Rate FiO2 11/07/16 12:33 96 40 11/07/16 06:00 56 11/07/16 04:00 98.8 20 151/74 11/06/16 20:00 Mechanical Ventilator 11/04/16 07:00 6.00 Intake and Output 11/06/16 11/06/16 11/07/16 08:00 16:00 00:00 Intake Total 980 ml 1708 ml 1538 ml Output Total 650 ml 1000 ml 2075 ml Balance 330 ml 708 ml -537 ml Result Diagram: 11/07/16 0411 11/07/16 0411 Other Results Microbiology Date/Time Procedure Status Source Growth 11/05/16 18:00 Gram Stain - Final Complete Sputum Endotracheal 11/05/16 18:00 Sputum Culture - Final Complete Sputum Endotracheal LIGHT GROWTH NORMAL RESPIRATORY JOSE 11/04/16 20:00 Cancelled Sputum Expectorated Sputum 11/04/16 18:30 Legionella Antigen - Final Complete Urine Catheterized Urine PRESUMPTIVE NEGATIVE FOR LEGIONELLA P... 11/04/16 18:30 Streptococcus pneumoniae Antigen (M - Final Complete Urine Catheterized Urine PRESUMPTIVE NEGATIVE FOR STREPTOCOCCU... Imaging Last Impressions Chest X-Ray 11/07/16 06 Signed Impressions: Service Date/Time: Monday, November 07, 2016 03:48 - CONCLUSION: 1. Developing left basilar effusion/consolidation with linear atelectasis. 2. Interstitial prominence suggesting some degree of vascular congestion or volume overload. 3. Endotracheal tube approximately 2 cm above the sana. Kush Vigil MD Myocardial Perfusion Scan Nuc Med 11/02/16 0600 Signed Impressions: Service Date/Time: Wednesday, November 02, 2016 09:10 - CONCLUSION: 1. Large sized moderate severity fixed defect involving the inferolateral wall including the apex. Ischemia is not excluded. No wall motion abnormalities are identified RISK CATEGORY: Intermediate (1-3%% Annual Mortality Rate) Ben Aden MD CT Angiography 10/30/16 0000 Signed Impressions: Service Date/Time: Sunday, October 30, 2016 14:54 - CONCLUSION: The multiple pulmonary emboli seen in August have completely resolved. I don't see any residual emboli on today's exam. There is new airspace disease in the left upper lobe possible pneumonia. Garett Layton MD Abdomen X-Ray 10/30/16 0000 Signed Impressions: Service Date/Time: Sunday, October 30, 2016 14:47 - CONCLUSION: Normal examination. Bony prominence of the right pubic symphysis Garett Layton MD Objective Remarks GENERAL: 55-year-old male, critically ill currently orotracheally intubated SKIN: Warm and dry. No rash HEAD: Atraumatic. Normocephalic. EYES: Pupils equal and round about 3 mm bilaterally and reactive. No scleral icterus. No injection or drainage. ENT: No nasal bleeding or discharge. Mucous membranes pink and moist. NECK: Trachea midline. No JVD. CARDIOVASCULAR: Regular rate and rhythm. S1, S2. No S4. RESPIRATORY: Few crackles patient bases bilateral. Positive for wheeze.. Breath sounds equal bilaterally. GASTROINTESTINAL: Abdomen soft, non-tender, protuberant. Hypoactive bowel sounds appreciated MUSCULOSKELETAL: Extremities with 1+ bilateral lower extremity pitting edema. No obvious deformities. NEUROLOGICAL: Sedated on the ventilator. Positive gag. Positive corneal effects. Moves all 4 extremities spontaneously but not to command currently A/P Assessment and Plan Plan: Neuro/Psych: History CVA with left-sided residual weakness Carpal tunnel syndrome Sedation with propofol at 50 mcg/kg/m, fentanyl gtt 100 an hour and Versed drips at 4 mg an hour for sedation/analgesia while intubated Goal of RASS -2 10 mg daily zyprexa started 11/05 in view of agitation despite propofol. Daily sedation vacation. Check MRI brain today with altered mental status Cardiovascular: Hypertension Dyslipidemia Ischemic heart disease IV hydration, watch for hypotension. Continue Lasix 40 mg IV twice a day/losartan 50 mg daily/metoprolol 12.5 twice a day, 81 mg daily/aspirin/and atorvastatin 20 mEq daily Lexiscan revealed microspheres fixed defects and lateral wall. Intermediate affect. Pulmonary: Pneumonia COPD exacerbation History of bilateral PE negative CTA chest this admission Continue mechanical ventilation. On anticoagulation for PE with Xarelto which will be continued. Vent bundle, bronchodilators, Solu-Medrol GI/liver: Tolerating tube feeds with Glucerna 1.5 goal 65 cc an hour Protonix for GI prophylaxis Positive BM's ID: Continue empiric antibiotic coverage with IV vancomycin/Zosyn/ Zithromax. Urine for strep pneumo and Legionella antigen negative. Nasal washings for influenza a and B negative. Blood cultures negative so far. Endocrine: Diabetes mellitus with neuropathy Increase Levemir 50-75 units twice a day. 50 units sliding-scale insulin past 24 hours. Heme: Normocytic anemia Follow CBC, on anticoagulation with Xarelto 15 mg twice a day for PE. Access - Utilize peripheral IV. Central line if indicated Prophylaxis - GI - Protonix - DVT - SCDs/Xarelto Critical Care: The total critical care time was 35 minutes. Time to perform other separately billable procedures was not included in the critical care time. Jordan Sandhu MD Nov 07, 2016 12:56
[2016-11-07] MEDS: PANTOPRAZOLE SODIUM 40 MG VIAL IV PUSH SCH (13:29)
[2016-11-07] MEDS: AZITHROMYCIN INJ 500 MG in SODIUM CHLOR 0.9% 250 ML INJ 250 ML IV SCH (13:56)
[2016-11-07] MEDS ORDERED: INSULIN DETEMIR 100 UNITS/ML VIAL SQ SCH (21:00)
[2016-11-08] VITALS (18 sets, daily range): BP systolic 123–170; BP diastolic 60–82; PULSE 69–105; RESP 20; TEMP 98.7–100; O2SAT 92–96
[2016-11-08] MEDS: methylPREDNISolone SOD SUCC 40 MG/1 ML VIAL IV PUSH SCH ×4 (01:06→20:43)
[2016-11-08] MEDS: DOCUSATE SODIUM 100 MG CAP PO SCH ×2 (01:06→14:30)
[2016-11-08] MEDS: VANCOMYCIN INJ 1,250 MG in SODIUM CHLOR 0.9% 250 ML INJ 250 ML IV SCH ×2 (01:06→18:02)
[2016-11-08] MEDS: MIDAZOLAM 100 MG/ML INJ 100 ML IV SCH ×3 (02:22→22:58)
[2016-11-08] MEDS: PROPOFOL 1000 MG/100 ML IV SCH ×7 (02:22→22:58)
[2016-11-08] MEDS: PIPERACIL-TAZO 4.5 GM PREMIX 100 ML IV SCH ×4 (02:22→20:43)
[2016-11-08] MEDS: INSULIN ASPART SUPPLEMENTAL SCALE SQ SCH ×5 (06:00→23:39)
--- NOTE | 2016-11-08 07:57 | HHI.CCPN ---
Subjective Remarks/Hospital Course 11/04: This is a 55-year-old male with a clinical history which includes hypertension, diabetes with diabetic neuropathy, hyperlipidemia, carpal tunnel syndrome, recent pneumonia August 2016 and recent pulmonary embolism August 2016. Patient persists emergency department today with reports of congestion and cough which began gradually on Saturday night into Saturday. Cough is productive of yellow/green sputum. Patient reports he believes he's had subjective fevers on Saturday but does not have a thermometer at home. Patient reports that he has left lower chest pain worse with coughing. Patient also has midsternal chest pain described as a ice pick sensation at rest and with cough. Patient does report diaphoresis, nausea and denies sweats with these symptoms. Patient reports he is fatigued more easily over the past few days and does report slight dizziness with standing or changing positions rapidly. Patient did have musculoskeletal pain with palpation of chest. Patient noted he lives alone and his by mouth intake is, "not that great ." Patient cannot remember the last bowel movement and does note abdominal distention/bloating. Patient was diagnosed to have a pneumonia and admitted to the floor on 10/30. He was transferred to the ICU on 10/31 for worsening respiratory distress. Patient was evaluated by cardiology for elevated troponin and a Meghna scan done on 11/02 revealed a fixed perfusion defect involving inferolateral wall including apex. Patient's respiratory status declined on 11/03 and he was placed on BiPAP. Critical care consult was requested by Dr. José Miguel Singleton from pulmonary medicine for worsening respiratory failure and possible need for intubation. When I evaluated the patient he was on BiPAP with full facemask. He was awake and alert and appeared to be tolerating BiPAP well. He appeared diaphoretic at the time. He denied any chest pain. 11/05: He was intubated and placed on mechanical ventilation yesterday for worsening respiratory status. He remains sedated, orally intubated on mechanical ventilation. Tolerating tube feeds. 11/06: Remains sedated, orally intubated on mechanical ventilation. Tolerating tube feeds. 11/07: Currently afebrile. Requiring additional Versed for sedation. Positive BM. Tolerating tube feeding. Subjective 11/08: Tmax 99.8. Currently 99.7. Tolerating tube feeds at goal 65 cc an hour. Positive BM. Versed currently at 10 mg an hour for sedation. Very agitated on attempted weans. MRI brain/EEG ordered for today. Objective Vital Signs Date Time Temp Pulse Resp B/P Pulse Ox O2 Delivery O2 Flow Rate FiO2 11/08/16 06:00 71 11/08/16 04:36 94 40 11/08/16 04:00 99.7 20 153/73 11/07/16 20:00 Mechanical Ventilator 11/04/16 07:00 6.00 Intake and Output 11/07/16 11/07/16 11/08/16 08:00 16:00 00:00 Intake Total 1340 ml 1235 ml 1316 ml Output Total 925.0 ml 1700.0 ml 2750 ml Balance 415.0 ml -465.0 ml -1434 ml Result Diagram: 11/07/16 0411 11/08/16 0345 Other Results Microbiology Date/Time Procedure Status Source Growth 11/05/16 18:00 Gram Stain - Final Complete Sputum Endotracheal 11/05/16 18:00 Sputum Culture - Final Complete Sputum Endotracheal LIGHT GROWTH NORMAL RESPIRATORY JOSE 11/04/16 20:00 Cancelled Sputum Expectorated Sputum 11/04/16 18:30 Legionella Antigen - Final Complete Urine Catheterized Urine PRESUMPTIVE NEGATIVE FOR LEGIONELLA P... 11/04/16 18:30 Streptococcus pneumoniae Antigen (M - Final Complete Urine Catheterized Urine PRESUMPTIVE NEGATIVE FOR STREPTOCOCCU... Imaging Last Impressions Chest X-Ray 11/07/16 0600 Signed Impressions: Service Date/Time: Monday, November 07, 2016 03:48 - CONCLUSION: 1. Developing left basilar effusion/consolidation with linear atelectasis. 2. Interstitial prominence suggesting some degree of vascular congestion or volume overload. 3. Endotracheal tube approximately 2 cm above the sana. Kush Vigil MD Myocardial Perfusion Scan Nuc Med 11/02/16 0600 Signed Impressions: Service Date/Time: Wednesday, November 02, 2016 09:10 - CONCLUSION: 1. Large sized moderate severity fixed defect involving the inferolateral wall including the apex. Ischemia is not excluded. No wall motion abnormalities are identified RISK CATEGORY: Intermediate (1-3%% Annual Mortality Rate) Ben Aden MD CT Angiography 10/30/16 0000 Signed Impressions: Service Date/Time: Sunday, October 30, 2016 14:54 - CONCLUSION: The multiple pulmonary emboli seen in August have completely resolved. I don't see any residual emboli on today's exam. There is new airspace disease in the left upper lobe possible pneumonia. Garett Layton MD Abdomen X-Ray 10/30/16 0000 Signed Impressions: Service Date/Time: Sunday, October 30, 2016 14:47 - CONCLUSION: Normal examination. Bony prominence of the right pubic symphysis Garett Layton MD Objective Remarks GENERAL: 55-year-old male, critically ill currently orotracheally intubated SKIN: Warm and dry. No rash HEAD: Atraumatic. Normocephalic. EYES: Pupils equal and round about 3 mm bilaterally and reactive. No scleral icterus. No injection or drainage. ENT: No nasal bleeding or discharge. Mucous membranes pink and moist. NECK: Trachea midline. No JVD. CARDIOVASCULAR: Regular rate and rhythm. S1, S2. No S4. RESPIRATORY: Few crackles patient bases bilateral. Positive for wheeze.. Breath sounds equal bilaterally. GASTROINTESTINAL: Abdomen soft, non-tender, protuberant. Hypoactive bowel sounds appreciated MUSCULOSKELETAL: Extremities with 1+ bilateral lower extremity pitting edema. No obvious deformities. NEUROLOGICAL: Sedated on the ventilator. Positive gag. Positive corneal effects. Moves all 4 extremities spontaneously but not to command currently A/P Assessment and Plan Plan: Neuro/Psych: History CVA with left-sided residual weakness Carpal tunnel syndrome Sedation with propofol at 50 mcg/kg/m, fentanyl gtt 100 an hour and Versed drips at 10 mg an hour for sedation/analgesia while intubated Goal of RASS -2 10 mg daily zyprexa started 11/05 in view of agitation despite propofol. Daily sedation vacation. Check MRI brain today/EEG with altered mental status Cardiovascular: Hypertension Dyslipidemia Ischemic heart disease IV hydration, watch for hypotension. Continue Lasix 40 mg IV twice a day/losartan 50 mg daily/metoprolol 12.5 twice a day, 81 mg daily aspirin/and atorvastatin 20 mg daily Lexiscan revealed large fixed defects inferior lateral wall and apex. Intermediate 1-3% Pulmonary: Pneumonia COPD exacerbation History of bilateral PE negative CTA chest this admission Continue mechanical ventilation. ACV 20/500/5/40 On anticoagulation for PE with Xarelto which will be continued. Vent bundle, bronchodilators 4 times a day, Solu-Medrol 40 every 12 to be continued GI/liver: Tolerating tube feeds with Glucerna 1.5 goal 65 cc an hour Protonix for GI prophylaxis Positive BM's ID: Continue empiric antibiotic coverage with IV vancomycin/Zosyn/ Zithromax. Urine for strep pneumo and Legionella antigen negative. Nasal washings for influenza a and B negative. Blood cultures negative so far. Endocrine: Diabetes mellitus with neuropathy Increase Levemir 75-90 units twice a day. 60 units sliding-scale insulin past 24 hours. Heme: Normocytic anemia Follow CBC, on anticoagulation with Xarelto 15 mg twice a day for PE. Access - Utilize peripheral IV. Central line if indicated Prophylaxis - GI - Protonix - DVT - SCDs/Xarelto Critical Care: The total critical care time was 35 minutes. Time to perform other separately billable procedures was not included in the critical care time. Jordan Sandhu MD Nov 08, 2016 07:57
[2016-11-08] MEDS: RESP: ALBUTEROL 2.5 MG/IPRATROPIUM 0.5 MG NEB (SCH) NEB ×4 (08:04→20:24)
[2016-11-08] MEDS: HALOPERIDOL LACTATE 5 MG/ML AMP IV PUSH PRN (08:35)
[2016-11-08] MEDS: TAMSULOSIN HCL 0.4 MG CAP PO SCH (09:00)
[2016-11-08] MEDS: VENLAFAXINE HCL XR 75 MG CAP PO SCH (09:00)
[2016-11-08] MEDS: ASPIRIN EC 81 MG TABEC PO SCH (09:07)
[2016-11-08] MEDS: METOPROLOL TARTRATE 25 MG TAB PO SCH ×2 (09:07→20:43)
[2016-11-08] MEDS: ATORVASTATIN 20 MG TAB PO SCH (09:07)
[2016-11-08] MEDS: OLANZapine 10 MG TAB PO SCH (09:07)
[2016-11-08] MEDS: MAGNESIUM OXIDE 400 MG TAB PO SCH (09:07)
[2016-11-08] MEDS: LOSARTAN 50 MG TAB PO SCH (09:07)
[2016-11-08] MEDS: RIVAROXABAN 15 MG TAB PO SCH ×2 (09:08→20:44)
[2016-11-08] MEDS: PREGABALIN 75 MG CAP PO SCH ×2 (09:08→20:44)
[2016-11-08] MEDS: INSULIN DETEMIR 100 UNITS/ML VIAL SQ SCH ×2 (09:08→21:02)
[2016-11-08] MEDS: FUROSEMIDE 40 MG/4 ML VIAL IV PUSH SCH ×2 (09:11→17:49)
[2016-11-08] MEDS: SODIUM CHLORIDE 0.9% FLUSH 5 ML FLUSH FLUSH SCH ×2 (09:15→20:44)
[2016-11-08 11:24] LABS: AUTOMATED NEUTROPHIL # 8.6 TH/MM3 (1.8-7.7); BASOPHIL % 0.1 % (0.0-2.0); HEMATOCRIT 40.6 % (39.0-51.0); HEMO FLAGS DIFF FINAL; LYMPH % 7.1 % (9.0-44.0); LYMPHOCYTE # 0.7 TH/MM3 (1.0-4.8); MEAN CELL VOLUME 87.8 FL (80.0-100.0); MEAN CORPUSCULAR HEMOGLOBIN 28.9 PG (27.0-34.0); MONO % 10.4 % (0.0-8.0); NEUT % 82.4 % (16.0-70.0); PLATELET COUNT 254 TH/MM3 (150-450); RED BLOOD COUNT 4.62 MIL/MM3 (4.50-5.90); RED CELL DISTRIBUTION WIDTH 15.1 % (11.6-17.2); WHITE BLOOD COUNT 10.5 TH/MM3 (4.0-11.0)
[2016-11-08 11:46] LABS: BICARBONATE 28.6 MEQ/L (21.0-32.0)
[2016-11-08] MEDS: PANTOPRAZOLE SODIUM 40 MG VIAL IV PUSH SCH (15:07)
[2016-11-08] MEDS: AZITHROMYCIN INJ 500 MG in SODIUM CHLOR 0.9% 250 ML INJ 250 ML IV SCH (15:08)
--- NOTE | 2016-11-08 18:04 | RADRPT ---
EXAM DATE/TIME: 11/08/2016 16:26 [facility] COMPARISON: No previous studies available for comparison. INDICATIONS : Pre MRI screening. MEDICAL HISTORY : Hypertension. Chronic obstructive pulmonary disease. SURGICAL HISTORY : None. ENCOUNTER: Subsequent ACUITY: 1 week PAIN SCORE: Non-responsive. LOCATION: Skull FINDINGS: A two view examination of the skull demonstrates no evidence of fracture. The pituitary fossa is nor mal in configuration. No MRI incompatible foreign body is identified.. CONCLUSION: No MRI incompatible foreign body is identified. Guerrero Cummings MD on November 08, 2016 at 18:02 Board Certified Radiologist. This report was verified electronically.
--- NOTE | 2016-11-08 22:05 | MG ---
cc: VICTORIANO KELLER MD Lab No: Date: 11/08/16 Age: 55 Sex: M Race: REQUESTING PHYSICIAN Dr. Sandhu An EEG was obtained on this 55-year-old patient with a history of decreased responsiveness. The patient is intubated, on Diprivan. The EEG shows what appears to be awake and asleep features. There are a mixture of theta with some delta rhythms and limited amount of alpha activity. There is some beta activity as well. There is some mild shifting on the slowing. There are some sharp waves but no distinct paroxysmal discharge. The patient is often asleep and there is some vertex sharp activity. Photic stimulation showed no change. INTERPRETATION Abnormal EEG because of generalized slowing. There is some fluctuations on the EEG pattern and there appears to be some reaction of the EEG during tactile stimulation. There are some sharp waves mostly frontal central but not obviously an epileptiform abnormality. No ictal activity. The findings would suggest a moderately severe diffuse disturbance of cerebral function. MD IGLESIA Hall/ /5:17 PM /9:46 PM
[2016-11-09] VITALS (20 sets, daily range): BP systolic 93–151; BP diastolic 56–80; PULSE 84–128; RESP 20–25; TEMP 99–101.4; O2SAT 92–100
[2016-11-09] MEDS: PIPERACIL-TAZO 4.5 GM PREMIX 100 ML IV SCH ×2 (01:56→08:47)
[2016-11-09] MEDS: PROPOFOL 1000 MG/100 ML IV SCH ×4 (01:56→22:28)
[2016-11-09] MEDS: DOCUSATE SODIUM 100 MG CAP PO SCH ×3 (01:57→13:57)
[2016-11-09] MEDS: HALOPERIDOL LACTATE 5 MG/ML AMP IV PUSH PRN ×2 (02:14→18:00)
[2016-11-09 04:03] LABS: AUTOMATED NEUTROPHIL # 10.9 TH/MM3 (1.8-7.7); BASOPHIL % 0.3 % (0.0-2.0); LYMPH % 7.4 % (9.0-44.0); MEAN CELL VOLUME 87.6 FL (80.0-100.0); MEAN CORPUSCULAR HEMOGLOBIN 29.1 PG (27.0-34.0); MEAN CORPUSCULAR HGB CONC 33.2 % (32.0-36.0); MONO % 10.8 % (0.0-8.0); NEUT % 81.5 % (16.0-70.0); PLATELET COUNT 287 TH/MM3 (150-450); RED BLOOD COUNT 5.14 MIL/MM3 (4.50-5.90); RED CELL DISTRIBUTION WIDTH 15.4 % (11.6-17.2); WHITE BLOOD COUNT 13.4 TH/MM3 (4.0-11.0)
[2016-11-09 04:07] LABS: HEMO FLAGS AUTO DIFF
[2016-11-09 04:26] LABS: ALT (GPT) 48 U/L (12-78); ANION GAP 10 MEQ/L (5-15); AST (GOT) 82 U/L (15-37); BICARBONATE 27.7 MEQ/L (21.0-32.0); BLOOD UREA NITROGEN 63 MG/DL (7-18); CHLORIDE 106 MEQ/L (98-107); GLOMERULAR FILTRATION RATE 37 ML/MIN (>89); MAGNESIUM 2.7 MG/DL (1.5-2.5); SODIUM (NA) 144 MEQ/L (136-145)
[2016-11-09 04:39] LABS: ALKALINE PHOSPHATASE 113 U/L (45-117); TOTAL BILIRUBIN ADULT 0.6 MG/DL (0.2-1.0)
--- NOTE | 2016-11-09 04:51 | RADRPT ---
EXAM DATE/TIME: 11/09/2016 03:35 [facility] COMPARISON: CHEST SINGLE AP, November 07, 2016, 3:48. INDICATIONS : Shortness of breath. MEDICAL HISTORY : Hypertension. Gastroesophageal reflux disease. Chronic obstructive pulmonary disease. Hypercholestero lemia. SURGICAL HISTORY : None. ENCOUNTER: Subsequent ACUITY: 2 weeks PAIN SCORE: Non-responsive. LOCATION: chest FINDINGS: Endotracheal tube tip is 1.5 cm above the sana. Gastric tube traverses the [id number]. Interva l development of consolidation in the left lower lung with loss of delineation left hemidiaphragm. T here is stable indistinctness of the bronchopulmonary markings in the right infrahilar region. The r emainder of the right lung is clear. The heart is normal size. Orthopedic plate in the left clavicl e. CONCLUSION: 1. ET tube tip 1.6 cm above the sana. 2. Interval development of left lower lobe consolidation. Db Ramsay MD on November 09, 2016 at 4:48 Board Certified Radiologist. This report was verified electronically.
[2016-11-09] MEDS: INSULIN ASPART SUPPLEMENTAL SCALE SQ SCH ×3 (06:56→18:00)
[2016-11-09 07:16] LABS: BANDS 13 % (0-6); METAMYELOCYTES 1 % (0-1); NEUTROPHIL # MANUAL DIFF 11.5 TH/MM3 (1.8-7.7); PLATELET ESTIMATE SMEAR NORMAL (NORMAL); PLATELET MORPHOLOGY NORMAL (NORMAL); POLYS (SEG NEUTROPHILS) 72 % (16-70); SCAN/DIFF FINAL DIFF MANUAL; WBC DIFF SAMPLE 100
[2016-11-09] MEDS: RESP: ALBUTEROL 2.5 MG/IPRATROPIUM 0.5 MG NEB (SCH) NEB ×4 (07:57→20:20)
[2016-11-09] MEDS: MIDAZOLAM 100 MG/ML INJ 100 ML IV SCH (08:47)
[2016-11-09] MEDS: FUROSEMIDE 40 MG/4 ML VIAL IV PUSH SCH (08:47)
[2016-11-09] MEDS: SODIUM CHLORIDE 0.9% FLUSH 5 ML FLUSH FLUSH SCH ×2 (08:51→21:00)
[2016-11-09] MEDS: METOPROLOL TARTRATE 25 MG TAB PO SCH ×2 (08:51→21:16)
[2016-11-09] MEDS: OLANZapine 10 MG TAB PO SCH (08:51)
[2016-11-09] MEDS: INSULIN DETEMIR 100 UNITS/ML VIAL SQ SCH ×2 (08:52→21:15)
[2016-11-09] MEDS: RIVAROXABAN 15 MG TAB PO SCH ×2 (08:52→21:15)
[2016-11-09] MEDS: PREGABALIN 75 MG CAP PO SCH ×2 (08:52→21:16)
[2016-11-09] MEDS: MAGNESIUM OXIDE 400 MG TAB PO SCH (08:52)
[2016-11-09] MEDS: ASPIRIN EC 81 MG TABEC PO SCH (08:52)
[2016-11-09] MEDS: ATORVASTATIN 20 MG TAB PO SCH (08:52)
[2016-11-09] MEDS: TAMSULOSIN HCL 0.4 MG CAP PO SCH (08:52)
[2016-11-09] MEDS: LOSARTAN 50 MG TAB PO SCH (08:52)
[2016-11-09] MEDS: methylPREDNISolone SOD SUCC 40 MG/1 ML VIAL IV PUSH SCH ×2 (08:56→21:15)
[2016-11-09] MEDS: VENLAFAXINE HCL XR 75 MG CAP PO SCH (08:56)
--- NOTE | 2016-11-09 10:35 | RADRPT ---
EXAM DATE/TIME: 11/09/2016 09:48 [facility] COMPARISON: No previous studies available for comparison. INDICATIONS : Altered mental status. CVA. MEDICAL HISTORY : Hypertension. Stroke Diabetes mellitus type 2. SURGICAL HISTORY : Ortho surgeries/pt cleared by radiologist. ENCOUNTER: Subsequent ACUITY: 1 week PAIN SCORE: Nonresponsive. LOCATION: head TECHNIQUE: Multiplanar, multisequence MRI of the brain was performed without contrast. FINDINGS: CEREBRUM: The ventricles are normal for age. No evidence of midline shift, mass lesion, hemorrhage or acute in farction. No extraaxial fluid collections are seen. The pituitary gland and suprasellar cistern are normal in configuration. WHITE MATTER: A few subcentimeter foci of flair signal abnormality are seen in the white matter of both vertebral h emispheres. POSTERIOR FOSSA: The cerebellum and brainstem are intact. The 4th ventricle is midline. The cerebellopontine angle is unremarkable. The cerebellar tonsils are normal in position. DIFFUSION IMAGING: No focal areas of restricted diffusion are seen. No evidence of acute infarction. EXTRACRANIAL: Mucoperiosteal thickening, debris and near complete opacification seen of the visualized maxillary, e thmoid and sphenoid air cells. Frontal sinus disease is mild. There is fluid in the bilateral mastoid air cells. CONCLUSION: 1. No acute infarct or other acute intracranial abnormality. 2. Mild, nonspecific chronic white matter signal changes. 3. Pansinusitis and apparent bilateral mastoiditis. Guerrero Cummings MD on November 09, 2016 at 10:32 Board Certified Radiologist. This report was verified electronically.
[2016-11-09] MEDS ORDERED: PHARMACY ORDERED LAB XX ONE (11:45)
--- NOTE | 2016-11-09 13:16 | HHI.CCPN ---
Subjective Remarks/Hospital Course 11/04: This is a 55-year-old male with a clinical history which includes hypertension, diabetes with diabetic neuropathy, hyperlipidemia, carpal tunnel syndrome, recent pneumonia August 2016 and recent pulmonary embolism August 2016. Patient persists emergency department today with reports of congestion and cough which began gradually on Saturday night into Saturday. Cough is productive of yellow/green sputum. Patient reports he believes he's had subjective fevers on Saturday but does not have a thermometer at home. Patient reports that he has left lower chest pain worse with coughing. Patient also has midsternal chest pain described as a ice pick sensation at rest and with cough. Patient does report diaphoresis, nausea and denies sweats with these symptoms. Patient reports he is fatigued more easily over the past few days and does report slight dizziness with standing or changing positions rapidly. Patient did have musculoskeletal pain with palpation of chest. Patient noted he lives alone and his by mouth intake is, "not that great ." Patient cannot remember the last bowel movement and does note abdominal distention/bloating. Patient was diagnosed to have a pneumonia and admitted to the floor on 10/30. He was transferred to the ICU on 10/31 for worsening respiratory distress. Patient was evaluated by cardiology for elevated troponin and a Meghna scan done on 11/02 revealed a fixed perfusion defect involving inferolateral wall including apex. Patient's respiratory status declined on 11/03 and he was placed on BiPAP. Critical care consult was requested by Dr. José Miguel Singleton from pulmonary medicine for worsening respiratory failure and possible need for intubation. When I evaluated the patient he was on BiPAP with full facemask. He was awake and alert and appeared to be tolerating BiPAP well. He appeared diaphoretic at the time. He denied any chest pain. 11/05: He was intubated and placed on mechanical ventilation yesterday for worsening respiratory status. He remains sedated, orally intubated on mechanical ventilation. Tolerating tube feeds. 11/06: Remains sedated, orally intubated on mechanical ventilation. Tolerating tube feeds. 11/07: Currently afebrile. Requiring additional Versed for sedation. Positive BM. Tolerating tube feeding. 11/08: Tmax 99.8. Currently 99.7. Tolerating tube feeds at goal 65 cc an hour. Positive BM. Versed currently at 10 mg an hour for sedation. Very agitated on attempted weans. MRI brain/EEG ordered for today. Subjective 11/09: Still not on Precedex drip still ordered. MRI brain/EEG showed no epileptiform activity/acute stroke. Still very agitated. We'll attempt CPAP trials again today. Objective Vital Signs Date Time Temp Pulse Resp B/P Pulse Ox O2 Delivery O2 Flow Rate FiO2 11/09/16 12:00 103 11/09/16 12:00 50 11/09/16 11:21 92 11/09/16 09:52 20 11/09/16 07:00 Mechanical Ventilator 11/09/16 04:00 100.0 151/80 Intake and Output 11/08/16 11/08/16 11/09/16 08:00 16:00 00:00 Intake Total 1212 ml 925 ml 1576 ml Output Total 800 ml 1750 ml 1500 ml Balance 412 ml -825 ml 76 ml Result Diagram: 11/09/16 0240 11/09/16 0240 Other Results Microbiology Date/Time Procedure Status Source Growth 11/05/16 18:00 Gram Stain - Final Complete Sputum Endotracheal 11/05/16 18:00 Sputum Culture - Final Complete Sputum Endotracheal LIGHT GROWTH NORMAL RESPIRATORY JOSE 11/04/16 20:00 Cancelled Sputum Expectorated Sputum 11/04/16 18:30 Legionella Antigen - Final Complete Urine Catheterized Urine PRESUMPTIVE NEGATIVE FOR LEGIONELLA P... 11/04/16 18:30 Streptococcus pneumoniae Antigen (M - Final Complete Urine Catheterized Urine PRESUMPTIVE NEGATIVE FOR STREPTOCOCCU... Imaging Last Impressions Chest X-Ray 11/09/16 0600 Signed Impressions: Service Date/Time: Wednesday, November 09, 2016 03:35 - CONCLUSION: 1. ET tube tip 1.6 cm above the sana. 2. Interval development of left lower lobe consolidation. Db Ramsay MD Brain MRI 11/09/16 0000 Signed Impressions: Service Date/Time: Wednesday, November 09, 2016 09:48 - CONCLUSION: 1. No acute infarct or other acute intracranial abnormality. 2. Mild, nonspecific chronic white matter signal changes. 3. Pansinusitis and apparent bilateral mastoiditis. Guerrero Cummings MD Skull X-Ray 11/08/16 0000 Signed Impressions: Service Date/Time: October 16:26 - CONCLUSION: No MRI incompatible foreign body is identified. Guerrero Cummings MD Myocardial Perfusion Scan Nuc Med 11/02/16 0600 Signed Impressions: Service Date/Time: Wednesday, November 02, 2016 09:10 - CONCLUSION: 1. Large sized moderate severity fixed defect involving the inferolateral wall including the apex. Ischemia is not excluded. No wall motion abnormalities are identified RISK CATEGORY: Intermediate (1-3%% Annual Mortality Rate) Ben Aden MD CT Angiography 10/30/16 0000 Signed Impressions: Service Date/Time: Sunday, October 30, 2016 14:54 - CONCLUSION: The multiple pulmonary emboli seen in August have completely resolved. I don't see any residual emboli on today's exam. There is new airspace disease in the left upper lobe possible pneumonia. Garett Layton MD Abdomen X-Ray 10/30/16 0000 Signed Impressions: Service Date/Time: Sunday, October 30, 2016 14:47 - CONCLUSION: Normal examination. Bony prominence of the right pubic symphysis Garett Layton MD Objective Remarks GENERAL: 55-year-old male, critically ill currently orotracheally intubated SKIN: Warm and dry. No rash HEAD: Atraumatic. Normocephalic. EYES: Pupils equal and round about 3 mm bilaterally and reactive. No scleral icterus. No injection or drainage. ENT: No nasal bleeding or discharge. Mucous membranes pink and moist. NECK: Trachea midline. No JVD. CARDIOVASCULAR: Regular rate and rhythm. S1, S2. No S4. RESPIRATORY: Few crackles patient bases bilateral. Positive for wheeze.. Breath sounds equal bilaterally. GASTROINTESTINAL: Abdomen soft, non-tender, protuberant. Hypoactive bowel sounds appreciated MUSCULOSKELETAL: Extremities with 1+ bilateral lower extremity pitting edema. No obvious deformities. NEUROLOGICAL: Sedated on the ventilator. Positive gag. Positive corneal effects. Moves all 4 extremities spontaneously but not to command currently A/P Assessment and Plan Plan: Neuro/Psych: History CVA with left-sided residual weakness Carpal tunnel syndrome Sedation with propofol at 50 mcg/kg/m, fentanyl gtt 100 an hour and Versed drips at 10 mg an hour for sedation/analgesia while intubated Goal of RASS -2 10 mg daily zyprexa started 11/05 in view of agitation despite propofol. Daily sedation vacation. Check MRI brain today/EEG with altered mental status Cardiovascular: Hypertension Dyslipidemia Ischemic heart disease IV hydration, watch for hypotension. Continue Lasix 40 mg IV twice a day/losartan 50 mg daily/metoprolol 12.5 twice a day, 81 mg daily aspirin/and atorvastatin 20 mg daily Lexiscan revealed large fixed defects inferior lateral wall and apex. Intermediate 1-3% Pulmonary: Pneumonia COPD exacerbation History of bilateral PE negative CTA chest this admission Continue mechanical ventilation. ACV 20/500/5/40 On anticoagulation for PE with Xarelto which will be continued. Vent bundle, bronchodilators 4 times a day, Solu-Medrol 40 every 12 to be continued GI/liver: Tolerating tube feeds with Glucerna 1.5 goal 65 cc an hour Protonix for GI prophylaxis Positive BM's ID: Mastoiditis Sinusitis Continue empiric antibiotic coverage with IV vancomycin/ Zithromax. Switch Zosyn since 10/30 - 11/09 to cefepime today for mastoiditis coverage Urine for strep pneumo and Legionella antigen negative. Nasal washings for influenza a and B negative. Sputum cultures -11/04 and 01/03. Blood cultures negative so far. Recheck blood cultures 2/sputum today. Endocrine: Diabetes mellitus with neuropathy Continue Levemir 90 units twice a day. 60 units sliding-scale insulin past 24 hours. Heme: Normocytic anemia Follow CBC, on anticoagulation with Xarelto 15 mg twice a day for PE. Access - Utilize peripheral IV. Central line if indicated Prophylaxis - GI - Protonix - DVT - SCDs/Xarelto Critical Care: The total critical care time was 35 minutes. Time to perform other separately billable procedures was not included in the critical care time. Jordan Sandhu MD Nov 09, 2016 13:16
[2016-11-09] MEDS: PANTOPRAZOLE SODIUM 40 MG VIAL IV PUSH SCH (13:57)
[2016-11-09] MEDS: CEFEPIME INJ 2,000 MG in SODIUM CHLORIDE 0.9% INJ 100 ML IV SCH (13:57)
[2016-11-09] MEDS: AZITHROMYCIN INJ 500 MG in SODIUM CHLOR 0.9% 250 ML INJ 250 ML IV SCH (15:31)
[2016-11-09] MEDS: VANCOMYCIN INJ 1,250 MG in SODIUM CHLOR 0.9% 250 ML INJ 250 ML IV SCH (16:58)
[2016-11-09] MEDS: DEXMEDETOMIDINE INJ 50 ML IV SCH ×5 (17:04→23:16)
[2016-11-09] MEDS ORDERED: LACTATED RINGER'S 1000 ML INJ 1,000 ML IV ONE (17:15)
[2016-11-09] MEDS ORDERED: SODIUM CHLOR 0.9% 1000 ML INJ 1,000 ML IV ONE (17:15)
[2016-11-09] MEDS ORDERED: ALBUMIN HUMAN 25% 25 GM/100 ML BAGP IV ONE (17:15)
[2016-11-09] MEDS: ACETAMINOPHEN 325 MG TAB PO PRN (22:28)
[2016-11-09] MEDS ORDERED: ROCURONIUM INJ 50 MG/5 ML VIAL IV ONE (22:45)
[2016-11-09] MEDS ORDERED: ETOMIDATE 20 MG/10 ML VIAL IV PUSH ONE (22:45)
[2016-11-09] MEDS ORDERED: ETOMIDATE 20 MG/10 ML VIAL ONE (22:47)
--- NOTE | 2016-11-09 23:02 | PD.PROCEDR ---
Procedure Note Procedure PROCEDURE NOTE PROCEDURE: Endotracheal intubation INDICATION: ETT cuff malfunction, acute respiratory failure. DETAILS OF PROCEDURE: Called to bedside as patient had ET tube cuff leak. Cuff leak would resolve with inflation of principal technical architect balloon but then leak would recur within minutes. ETT at 26 cm. The patient was placed in optimal position and preoxygenated with 100 % FiO2 via [id number]. Oximeter oxygen saturation of 100% was obtained prior to procedure. The patient was administered Etomidate 20 mg IV for sedation and rocuronium 50 mg IV for paralysis. Tube exchanger was advanced to 32 cm and the ETT cuff was deflated completely and ETT was removed. An 8.0 ETT was advanced over the tube exchanger and cuff was inflated. Breath sounds were auscultated bilaterally. No sounds auscultated over the stomach. Correct placement was confirmed with colorimetric CO2 detector. The endotracheal tube was secured with a commercial tube roldan at a depth of 25 cm at the lips. The patient was connected to the ventilator. The patient tolerated the procedure well without any apparent complication. Oxygen saturations were maintained 100% at all times. Stat chest x-ray was ordered. Jocelyn Rahman MD Nov 09, 2016 23:02
[2016-11-09] MEDS ORDERED: MIDAZOLAM HCL 2 MG/2 ML VIAL IV PUSH ONE (23:15)
[2016-11-10] VITALS (18 sets, daily range): BP systolic 105–169; BP diastolic 58–87; PULSE 76–100; RESP 18–24; TEMP 100.8–103; O2SAT 93–100
[2016-11-10] MEDS: DEXMEDETOMIDINE INJ 50 ML IV SCH ×2 (00:22→02:15)
--- NOTE | 2016-11-10 00:25 | RADRPT ---
EXAM DATE/TIME: 11/09/2016 23:23 [facility] COMPARISON: CHEST SINGLE AP, November 09, 2016, 3:35. INDICATIONS : Post intubation. MEDICAL HISTORY : Hypertension. Chronic obstructive pulmonary disease. SURGICAL HISTORY : None. ENCOUNTER: Initial ACUITY: 1 day PAIN SCORE: Non-responsive. LOCATION: Bilateral chest FINDINGS: There is significant patient rotation towards the left. The endotracheal tube tip is located 3.4 cm above the sana. Gastric tube traverses the field of view. Lobar consolidation left mid and lower lung. Left clavicular plate CONCLUSION: ET tube tip is greater than 3 cm above the sana. Persistent left lower lobe consolidation. Db Ramsay MD on November 10, 2016 at 0:22 Board Certified Radiologist. This report was verified electronically.
[2016-11-10] MEDS: CEFEPIME INJ 2,000 MG in SODIUM CHLORIDE 0.9% INJ 100 ML IV SCH ×2 (01:22→13:18)
[2016-11-10] MEDS: DOCUSATE SODIUM 100 MG CAP PO SCH ×2 (02:30→15:33)
[2016-11-10] MEDS: PROPOFOL 1000 MG/100 ML IV SCH ×6 (04:46→22:12)
[2016-11-10 05:17] LABS: AUTOMATED NEUTROPHIL # 11.9 TH/MM3 (1.8-7.7); BASOPHIL % 0.2 % (0.0-2.0); EOSINOPHIL % 0.1 % (0.0-4.0); HEMATOCRIT 44.3 % (39.0-51.0); HEMO FLAGS DIFF FINAL; LYMPH % 7.5 % (9.0-44.0); LYMPHOCYTE # 1.1 TH/MM3 (1.0-4.8); MEAN CELL VOLUME 88.3 FL (80.0-100.0); MEAN CORPUSCULAR HEMOGLOBIN 28.6 PG (27.0-34.0); MEAN CORPUSCULAR HGB CONC 32.4 % (32.0-36.0); NEUT % 83.2 % (16.0-70.0); PLATELET COUNT 189 TH/MM3 (150-450); RED BLOOD COUNT 5.02 MIL/MM3 (4.50-5.90); RED CELL DISTRIBUTION WIDTH 14.9 % (11.6-17.2); WHITE BLOOD COUNT 14.3 TH/MM3 (4.0-11.0)
[2016-11-10] MEDS: ACETAMINOPHEN 325 MG TAB PO PRN ×4 (05:26→21:50)
--- NOTE | 2016-11-10 06:06 | RADRPT ---
EXAM DATE/TIME: 11/10/2016 03:43 [facility] COMPARISON: CHEST SINGLE AP, November 09, 2016, 23:23. INDICATIONS : Evaluate for pneumonia. MEDICAL HISTORY : Hypertension. Chronic obstructive pulmonary disease. Diabetes mellitus type II. SURGICAL HISTORY : None. ENCOUNTER: Subsequent ACUITY: 2 weeks PAIN SCORE: Non-responsive. LOCATION: Bilateral chest FINDINGS: Endotracheal tube tip well above the sana. Gastric tube tip and side-port project within the stoma ch. Improved aeration in the left lower lung with decreased size consolidation. A few air bronchogr ams persist in the retrocardiac region. Mild peribronchial thickening in the right hilar region with out peripheral infiltrates. Orthopedic plate in the left clavicle. CONCLUSION: Improving, but persistent, consolidation left lower lung. Db Ramsay MD on November 10, 2016 at 6:03 Board Certified Radiologist. This report was verified electronically.
[2016-11-10 06:07] LABS: ALKALINE PHOSPHATASE 85 U/L (45-117); ALT (GPT) 72 U/L (12-78); ANION GAP 11 MEQ/L (5-15); AST (GOT) 103 U/L (15-37); BICARBONATE 24.4 MEQ/L (21.0-32.0); BLOOD UREA NITROGEN 65 MG/DL (7-18); CHLORIDE 114 MEQ/L (98-107); GLOMERULAR FILTRATION RATE 45 ML/MIN (>89); MAGNESIUM 2.8 MG/DL (1.5-2.5); POTASSIUM 4.2 MEQ/L (3.5-5.1); SODIUM (NA) 149 MEQ/L (136-145); TOTAL BILIRUBIN ADULT 0.6 MG/DL (0.2-1.0)
[2016-11-10] MEDS: INSULIN ASPART SUPPLEMENTAL SCALE SQ SCH ×5 (06:42→23:43)
[2016-11-10] MEDS: RESP: ALBUTEROL 2.5 MG/IPRATROPIUM 0.5 MG NEB (SCH) NEB ×4 (08:17→19:58)
[2016-11-10] MEDS: MAGNESIUM OXIDE 400 MG TAB PO SCH (09:00)
[2016-11-10] MEDS: RIVAROXABAN 15 MG TAB PO SCH (09:08)
[2016-11-10] MEDS: ATORVASTATIN 20 MG TAB PO SCH (09:08)
[2016-11-10] MEDS: METOPROLOL TARTRATE 25 MG TAB PO SCH ×2 (09:08→20:31)
[2016-11-10] MEDS: OLANZapine 10 MG TAB PO SCH (09:09)
[2016-11-10] MEDS: ASPIRIN EC 81 MG TABEC PO SCH (09:09)
[2016-11-10] MEDS: LOSARTAN 50 MG TAB PO SCH (09:09)
[2016-11-10] MEDS: PREGABALIN 75 MG CAP PO SCH ×2 (09:09→20:31)
[2016-11-10] MEDS: SODIUM CHLORIDE 0.9% FLUSH 5 ML FLUSH FLUSH SCH ×2 (09:10→19:39)
[2016-11-10] MEDS: methylPREDNISolone SOD SUCC 40 MG/1 ML VIAL IV PUSH SCH ×2 (09:10→20:31)
[2016-11-10] MEDS: TAMSULOSIN HCL 0.4 MG CAP PO SCH (09:10)
[2016-11-10] MEDS: INSULIN DETEMIR 100 UNITS/ML VIAL SQ SCH ×2 (09:41→20:31)
[2016-11-10] MEDS: VENLAFAXINE HCL XR 75 MG CAP PO SCH (09:41)
[2016-11-10] MEDS: VANCOMYCIN INJ 1,250 MG in SODIUM CHLOR 0.9% 250 ML INJ 250 ML IV SCH (09:42)
[2016-11-10] MEDS: DEXMEDETOMIDINE INJ 1,000 MCG in SODIUM CHLOR 0.9% 250 ML INJ 240 ML IV SCH ×3 (10:42→21:51)
--- NOTE | 2016-11-10 12:21 | HHI.CCPN ---
Subjective Remarks/Hospital Course 11/04: This is a 55-year-old male with a clinical history which includes hypertension, diabetes with diabetic neuropathy, hyperlipidemia, carpal tunnel syndrome, recent pneumonia August 2016 and recent pulmonary embolism August 2016. Patient persists emergency department today with reports of congestion and cough which began gradually on Saturday night into Saturday. Cough is productive of yellow/green sputum. Patient reports he believes he's had subjective fevers on Saturday but does not have a thermometer at home. Patient reports that he has left lower chest pain worse with coughing. Patient also has midsternal chest pain described as a ice pick sensation at rest and with cough. Patient does report diaphoresis, nausea and denies sweats with these symptoms. Patient reports he is fatigued more easily over the past few days and does report slight dizziness with standing or changing positions rapidly. Patient did have musculoskeletal pain with palpation of chest. Patient noted he lives alone and his by mouth intake is, "not that great ." Patient cannot remember the last bowel movement and does note abdominal distention/bloating. Patient was diagnosed to have a pneumonia and admitted to the floor on 10/30. He was transferred to the ICU on 10/31 for worsening respiratory distress. Patient was evaluated by cardiology for elevated troponin and a Meghna scan done on 11/02 revealed a fixed perfusion defect involving inferolateral wall including apex. Patient's respiratory status declined on 11/03 and he was placed on BiPAP. Critical care consult was requested by Dr. José Miguel Singleton from pulmonary medicine for worsening respiratory failure and possible need for intubation. When I evaluated the patient he was on BiPAP with full facemask. He was awake and alert and appeared to be tolerating BiPAP well. He appeared diaphoretic at the time. He denied any chest pain. 11/05: He was intubated and placed on mechanical ventilation yesterday for worsening respiratory status. He remains sedated, orally intubated on mechanical ventilation. Tolerating tube feeds. 11/06: Remains sedated, orally intubated on mechanical ventilation. Tolerating tube feeds. 11/07: Currently afebrile. Requiring additional Versed for sedation. Positive BM. Tolerating tube feeding. 11/08: Tmax 99.8. Currently 99.7. Tolerating tube feeds at goal 65 cc an hour. Positive BM. Versed currently at 10 mg an hour for sedation. Very agitated on attempted weans. MRI brain/EEG ordered for today. 11/09: Still not on Precedex drip still ordered. MRI brain/EEG showed no epileptiform activity/acute stroke. Still very agitated. We'll attempt CPAP trials again today. Subjective 11/10: Patient put off palate yesterday. Reintubated failed trial extubation. Severely agitated. Will reattempt CPAP trials today. Tmax 103. Noted a rash for blood pressure cuff is likely contact dermatitis Objective Vital Signs Date Time Temp Pulse Resp B/P Pulse Ox O2 Delivery O2 Flow Rate FiO2 11/10/16 08:30 94 50 11/10/16 06:00 77 11/10/16 04:00 101.3 20 143/69 11/09/16 19:00 Mechanical Ventilator Intake and Output 11/09/16 11/09/16 11/10/16 08:00 16:00 00:00 Intake Total 940 ml 497 ml 1316 ml Output Total 1000 ml 800 ml 825 ml Balance -60 ml -303 ml 491 ml Result Diagram: 11/10/16 0450 11/10/16 0450 Other Results Microbiology Date/Time Procedure Status Source Growth 11/09/16 16:48 Aerobic Blood Culture - Preliminary Resulted Blood Peripheral NO GROWTH IN 1 DAY 11/09/16 16:48 Anaerobic Blood Culture - Preliminary Resulted Blood Peripheral NO GROWTH IN 1 DAY 11/05/16 18:00 Gram Stain - Final Complete Sputum Endotracheal 11/05/16 18:00 Sputum Culture - Final Complete Sputum Endotracheal LIGHT GROWTH NORMAL RESPIRATORY JOSE Imaging Last Impressions Chest X-Ray 11/09/16 0600 Signed Impressions: Service Date/Time: Wednesday, November 09, 2016 03:35 - CONCLUSION: 1. ET tube tip 1.6 cm above the sana. 2. Interval development of left lower lobe consolidation. Db Ramsay MD Brain MRI 11/09/16 0000 Signed Impressions: Service Date/Time: Wednesday, November 09, 2016 09:48 - CONCLUSION: 1. No acute infarct or other acute intracranial abnormality. 2. Mild, nonspecific chronic white matter signal changes. 3. Pansinusitis and apparent bilateral mastoiditis. Guerrero Cummings MD Skull X-Ray 11/08/16 0000 Signed Impressions: Service Date/Time: October 16:26 - CONCLUSION: No MRI incompatible foreign body is identified. Guerrero Cummings MD Myocardial Perfusion Scan Nuc Med 11/02/16 0600 Signed Impressions: Service Date/Time: Wednesday, November 02, 2016 09:10 - CONCLUSION: 1. Large sized moderate severity fixed defect involving the inferolateral wall including the apex. Ischemia is not excluded. No wall motion abnormalities are identified RISK CATEGORY: Intermediate (1-3%% Annual Mortality Rate) Ben Aden MD CT Angiography 10/30/16 0000 Signed Impressions: Service Date/Time: Sunday, October 30, 2016 14:54 - CONCLUSION: The multiple pulmonary emboli seen in August have completely resolved. I don't see any residual emboli on today's exam. There is new airspace disease in the left upper lobe possible pneumonia. Garett Layton MD Abdomen X-Ray 10/30/16 0000 Signed Impressions: Service Date/Time: Sunday, October 30, 2016 14:47 - CONCLUSION: Normal examination. Bony prominence of the right pubic symphysis Garett Layton MD Objective Remarks GENERAL: 55-year-old male, critically ill currently orotracheally intubated SKIN: Warm and dry. No rash HEAD: Atraumatic. Normocephalic. EYES: Pupils equal and round about 3 mm bilaterally and reactive. No scleral icterus. No injection or drainage. ENT: No nasal bleeding or discharge. Mucous membranes pink and moist. NECK: Trachea midline. No JVD. CARDIOVASCULAR: Regular rate and rhythm. S1, S2. No S4. RESPIRATORY: Few crackles patient bases bilateral. Currently without an end expiratory wheeze Breath sounds equal bilaterally. GASTROINTESTINAL: Abdomen soft, non-tender, protuberant. Hypoactive bowel sounds appreciated MUSCULOSKELETAL: Extremities with 1+ bilateral upper and lower extremity pitting edema. No obvious deformities. NEUROLOGICAL: Sedated on the ventilator. Positive gag. Positive corneal effects. Moves all 4 extremities spontaneously when agitated but not to command currently A/P Assessment and Plan Plan: Neuro/Psych: History CVA with left-sided residual weakness Carpal tunnel syndrome Sedation with propofol at 30 mcg/kg/m, fentanyl gtt 100 an hour and Versed drips at 10 mg an hour for sedation/analgesia while intubated -Precedex drip added yesterday and will continue to increase today. Goal of RASS -2 10 mg daily Zyprexa started 11/05 in view of agitation despite propofol. Daily sedation vacation. Cardiovascular: Hypertension Dyslipidemia Ischemic heart disease IV hydration, watch for hypotension. Hold Lasix and losartan light of acute kidney injury. Continue/metoprolol 12.5 twice a day hypertension, 81 mg daily aspirin for abnormal Lexiscan below/and atorvastatin 20 mg daily for dyslipidemia Lexiscan revealed large fixed defects inferior lateral wall and apex. Intermediate 1-3% Pulmonary: Pneumonia COPD exacerbation History of bilateral PE negative CTA chest this admission Continue mechanical ventilation. ACV 20/500/5/40 On anticoagulation for PE with Xarelto has been held in light of renal wishes. Should be on 15 mg daily. Vent bundle, bronchodilators 4 times a day, Solu-Medrol 40 every 12 to be continued Neurology/Dr. singleton following GI/liver: Tolerating tube feeds with Glucerna 1.5 goal 65 cc an hour Protonix for GI prophylaxis Positive BM's without bowel regimen ID: Mastoiditis Sinusitis Continue empiric antibiotic coverage with IV vancomycin/ Zithromax. Switch Zosyn since 10/30 - 11/09 to cefepime today for mastoiditis coverage Urine for strep pneumo and Legionella antigen negative. Nasal washings for influenza a and B negative. Sputum cultures -11/04 and 01/03. Blood cultures negative so far. Recheck blood cultures 2/sputum today. Endocrine: Diabetes mellitus with neuropathy Continue Levemir 90 units twice a day. 35 units sliding-scale insulin past 24 hours. Heme: Normocytic anemia Follow CBC, on anticoagulation with Xarelto 15 mg twice a day for PE. Access - Utilize peripheral IV. Central line if indicated Prophylaxis - GI - Protonix - DVT - SCDs/heparin drip Critical Care: The total critical care time was 35 minutes. Time to perform other separately billable procedures was not included in the critical care time. Jordan Sandhu MD Nov 10, 2016 12:20
[2016-11-10 13:09] LABS: BLOOD GAS BASE EXCESS -0.2 mmol/L (-2-2); BLOOD GAS CARBOXYHEMOGLOBIN 1.1 % (0-4); BLOOD GAS HCO3 23 mmol/L (22-26); BLOOD GAS O2 HGB SATURATION 95 % (90-100); BLOOD GAS OXYGEN CONTENT 19.1 Vol % (12.0-20.0); BLOOD GAS PCO2 31 mmHg (38-42); BLOOD GAS PO2 93 mmHg (61-120); BLOOD GAS TOTAL HGB 14.3 G/DL (12.0-16.0); TEMP CORR TO 98.6
[2016-11-10 13:10] LABS: CRITICAL VALUE NO; OXYGEN DEVICE VENTILATOR
[2016-11-10 13:11] LABS: DRAW SITE LT BRACHIAL; FIO2 50 %; NUMBER OF ARTERIAL PUNCTURES 2; VENT SETTINGS AC18/600/5PEEP
[2016-11-10 13:12] LABS: STAT NO; ULNAR PULSE Y
[2016-11-10 13:16] LABS: HEMATOCRIT 43.9 % (39.0-51.0); MEAN CELL VOLUME 88.3 FL (80.0-100.0); MEAN CORPUSCULAR HEMOGLOBIN 28.9 PG (27.0-34.0); MEAN CORPUSCULAR HGB CONC 32.7 % (32.0-36.0); PLATELET COUNT 161 TH/MM3 (150-450); RED BLOOD COUNT 4.97 MIL/MM3 (4.50-5.90); RED CELL DISTRIBUTION WIDTH 14.9 % (11.6-17.2); REVIEW FLAG FINAL; WHITE BLOOD COUNT 17.7 TH/MM3 (4.0-11.0)
[2016-11-10] MEDS: oxyCODONE HCL ORAL CONC 20 MG/ML SYRINGE PO SCH ×3 (13:17→23:43)
[2016-11-10] MEDS: metroNIDAZOLE 500 MG TAB PO SCH ×2 (13:18→20:31)
[2016-11-10] MEDS: PANTOPRAZOLE SOD 40 MG DELAYED RELEASE TAB PO SCH (13:18)
[2016-11-10 13:27] LABS: APTT (PATIENT) 28.2 SEC (24.3-30.1); INTERNATIONAL NORMALIZED RATIO 1.1 RATIO; PROTHROMBIN TIME - PATIENT 12.5 SEC (9.8-11.6)
--- NOTE | 2016-11-10 14:45 | RADRPT ---
EXAM DATE/TIME: 11/10/2016 13:04 [facility] COMPARISON: US LEG BILATERAL VENOUS DOPPLER, August 29, 2016, 16:08. INDICATIONS : Bilateral lower extremity edema. MEDICAL HISTORY : Hypercholesterolemia. Hypertension. Chronic obstructive pulmonary disease. CVA. Anticaogulant therapy . Pulmonary embolism. Diabetes. SURGICAL HISTORY : Left shoulder surgery. ENCOUNTER: Subsequent ACUITY: 1 day PAIN SCORE: Non-responsive LOCATION: Bilateral legs. TECHNIQUE: Venous ultrasound of the left and right leg was performed from the inguinal ligament to the proximal calf. Real-time, color Doppler and spectral tracing, compression and augmentation techniques were us ed. FINDINGS: RIGHT LEG: There is normal compressibility of the deep venous system from the inguinal region to the proximal ca lf. No echogenic clot is seen in the lumen of the common femoral, femoral, popliteal, and posterior tibial veins. There is a normal response of the venous system to proximal and distal augmentation an d respiration. LEFT LEG: There is normal compressibility of the deep venous system from the inguinal region to the proximal ca lf. No echogenic clot is seen in the lumen of the common femoral, femoral, popliteal, and posterior tibial veins. There is a normal response of the venous system to proximal and distal augmentation an d respiration. CONCLUSION: No DVT. Guerrero Johnston MD on November 10, 2016 at 14:43 Board Certified Radiologist. This report was verified electronically.
[2016-11-10] MEDS: HEPARIN INJ 25,000 UNITS in SODIUM CHLOR 0.9% 250 ML INJ 250 ML IV SCH ×2 (14:55→21:51)
--- NOTE | 2016-11-10 15:02 | RADRPT ---
EXAM DATE/TIME: 11/10/2016 13:28 [facility] COMPARISON: No previous studies available for comparison. INDICATIONS : Bilateral upper extremity edema. MEDICAL HISTORY : Hypercholesterolemia. Hypertension. Chronic obstructive pulmonary disease. CVA. Anticaogulant therapy . Pulmonary embolism. Diabetes. SURGICAL HISTORY : Left shoulder surgery. ENCOUNTER: Initial ACUITY: 1 day PAIN SCORE: Non-responsive LOCATION: Bilateral arms. FINDINGS: RIGHT UPPER EXTREMITY: There is nonocclusive thrombus in the right internal jugular vein. There is spontaneous flow documented in the brachial, basilic, cephalic, axillary, and subclavia n veins. The vessels are compressible and augmentation response is documented. No filling defects a re seen. The flow is phasic with respiration. Direction of flow in the jugular vein is caudal. LEFT UPPER EXTREMITY: There is occlusive thrombus in the left cephalic vein. There is spontaneous flow documented in the brachial, basilic, axillary, and subclavian veins. The vessels are compressible and augmentation response is documented. No filling defects are seen. The flow is phasic with respiration. Direction of flow in the jugular vein is caudal. CONCLUSION: 1. Nonocclusive thrombus in the right internal jugular vein. 2. Occlusive thrombus in the left cephalic vein. Guerrero Johnston MD on November 10, 2016 at 14:58 Board Certified Radiologist. This report was verified electronically.
[2016-11-10] MEDS: AZITHROMYCIN INJ 500 MG in SODIUM CHLOR 0.9% 250 ML INJ 250 ML IV SCH (15:33)
[2016-11-10] MEDS ORDERED: MINERAL OIL LIQUID 30 ML CUP PO ONE (17:00)
[2016-11-10] MEDS ORDERED: LACTULOSE SYRUP 20 GM/30 ML CUP PO ONE (17:30)
[2016-11-10] MEDS ORDERED: POLYETHYLENE GLYCOL 17 GM PKG PO ONE (17:30)
[2016-11-10] MEDS: SENNOSIDES 8.6 MG TAB PO SCH (20:31)
[2016-11-10] MEDS ORDERED: VENLAFAXINE HCL XR 75 MG CAP PO ONE (21:00)
[2016-11-10 21:28] LABS: APTT (PATIENT) 63.4 SEC (24.3-30.1)
[2016-11-11] VITALS (18 sets, daily range): BP systolic 113–159; BP diastolic 57–74; PULSE 76–114; RESP 20–22; TEMP 98.9–102.5; O2SAT 2–99
[2016-11-11] MEDS: DOCUSATE SODIUM 100 MG CAP PO SCH ×2 (01:10→14:24)
[2016-11-11] MEDS: CEFEPIME INJ 2,000 MG in SODIUM CHLORIDE 0.9% INJ 100 ML IV SCH ×2 (01:11→14:32)
[2016-11-11] MEDS: VANCOMYCIN INJ 1,250 MG in SODIUM CHLOR 0.9% 250 ML INJ 250 ML IV SCH ×2 (03:58→21:43)
[2016-11-11] MEDS: PROPOFOL 1000 MG/100 ML IV SCH ×3 (03:58→13:09)
[2016-11-11 04:53] LABS: APTT (PATIENT) 96.5 SEC (24.3-30.1)
[2016-11-11 05:08] LABS: ALKALINE PHOSPHATASE 72 U/L (45-117); ALT (GPT) 61 U/L (12-78); ANION GAP 11 MEQ/L (5-15); AST (GOT) 58 U/L (15-37); BICARBONATE 25.8 MEQ/L (21.0-32.0); BLOOD UREA NITROGEN 60 MG/DL (7-18); CHLORIDE 117 MEQ/L (98-107); GLOMERULAR FILTRATION RATE 42 ML/MIN (>89); SODIUM (NA) 154 MEQ/L (136-145); TOTAL BILIRUBIN ADULT 0.6 MG/DL (0.2-1.0)
[2016-11-11 05:13] LABS: POTASSIUM 4.4 MEQ/L (3.5-5.1)
[2016-11-11] MEDS: oxyCODONE HCL ORAL CONC 20 MG/ML SYRINGE PO SCH ×3 (05:18→17:51)
[2016-11-11] MEDS: INSULIN ASPART SUPPLEMENTAL SCALE SQ SCH ×3 (05:18→18:00)
[2016-11-11] MEDS: ACETAMINOPHEN 325 MG TAB PO PRN ×2 (05:18→09:01)
[2016-11-11] MEDS: metroNIDAZOLE 500 MG TAB PO SCH ×3 (05:18→20:32)
[2016-11-11 05:25] LABS: AUTOMATED NEUTROPHIL # 16.8 TH/MM3 (1.8-7.7); BASOPHIL # 0.1 TH/MM3 (0-0.2); BASOPHIL % 0.3 % (0.0-2.0); EOSINOPHIL % 0.1 % (0.0-4.0); HEMATOCRIT 45.3 % (39.0-51.0); HEMO FLAGS DIFF FINAL; LYMPH % 5.9 % (9.0-44.0); LYMPHOCYTE # 1.2 TH/MM3 (1.0-4.8); MEAN CORPUSCULAR HEMOGLOBIN 28.7 PG (27.0-34.0); MEAN CORPUSCULAR HGB CONC 32.3 % (32.0-36.0); MONO % 8.7 % (0.0-8.0); PLATELET COUNT 139 TH/MM3 (150-450); RED BLOOD COUNT 5.09 MIL/MM3 (4.50-5.90); RED CELL DISTRIBUTION WIDTH 14.9 % (11.6-17.2); WHITE BLOOD COUNT 19.7 TH/MM3 (4.0-11.0)
--- NOTE | 2016-11-11 06:07 | RADRPT ---
EXAM DATE/TIME: 11/11/2016 03:58 [facility] COMPARISON: CHEST SINGLE AP, November 10, 2016, 3:43. INDICATIONS : Shortness of breath. MEDICAL HISTORY : Hypertension. Chronic obstructive pulmonary disease. Diabetes mellitus type II. SURGICAL HISTORY : None. ENCOUNTER: Subsequent ACUITY: 2 weeks PAIN SCORE: Non-responsive. LOCATION: Bilateral chest FINDINGS: Endotracheal tube tip well above the sana. Gastric tube traverses the [id number]. There is per sisting consolidation in the left lower lung with loss of delineation of the entire left hemidiaphrag m. Patchy infiltrates in the right infrahilar region stable in appearance. Orthopedic plate in the left clavicle. CONCLUSION: Persistent consolidation left lower lobe and persistent fullness in opacity in the right perihilar re gion. Db Ramsay MD on November 11, 2016 at 6:05 Board Certified Radiologist. This report was verified electronically.
[2016-11-11 06:42] LABS: APTT (PATIENT) 79.5 SEC (24.3-30.1)
[2016-11-11] MEDS: RESP: ALBUTEROL 2.5 MG/IPRATROPIUM 0.5 MG NEB (SCH) NEB ×4 (07:42→20:10)
[2016-11-11] MEDS: VENLAFAXINE HCL XR 75 MG CAP PO SCH (08:00)
[2016-11-11] MEDS: ASPIRIN EC 81 MG TABEC PO SCH (08:00)
[2016-11-11] MEDS: TAMSULOSIN HCL 0.4 MG CAP PO SCH (08:00)
[2016-11-11] MEDS: POLYETHYLENE GLYCOL 17 GM PKG PO SCH (08:26)
[2016-11-11] MEDS: ATORVASTATIN 20 MG TAB PO SCH (08:26)
[2016-11-11] MEDS: METOPROLOL TARTRATE 25 MG TAB PO SCH ×2 (08:26→20:32)
[2016-11-11] MEDS: PREGABALIN 75 MG CAP PO SCH ×2 (08:26→20:33)
[2016-11-11] MEDS: INSULIN DETEMIR 100 UNITS/ML VIAL SQ SCH ×2 (08:27→20:33)
[2016-11-11] MEDS: MAGNESIUM OXIDE 400 MG TAB PO SCH (08:27)
[2016-11-11] MEDS: OLANZapine 10 MG TAB PO SCH (08:27)
[2016-11-11] MEDS: SODIUM CHLORIDE 0.9% FLUSH 5 ML FLUSH FLUSH SCH ×2 (08:27→20:33)
[2016-11-11] MEDS: methylPREDNISolone SOD SUCC 40 MG/1 ML VIAL IV PUSH SCH ×2 (08:27→20:32)
[2016-11-11] MEDS: SENNOSIDES 8.6 MG TAB PO SCH ×2 (08:27→20:22)
[2016-11-11] MEDS: LACTULOSE SYRUP 20 GM/30 ML CUP PO SCH (08:27)
[2016-11-11] MEDS: DEXMEDETOMIDINE INJ 1,000 MCG in SODIUM CHLOR 0.9% 250 ML INJ 240 ML IV SCH ×3 (09:09→20:05)
--- NOTE | 2016-11-11 12:06 | HHI.CCPN ---
Subjective Remarks/Hospital Course 11/04: This is a 55-year-old male with a clinical history which includes hypertension, diabetes with diabetic neuropathy, hyperlipidemia, carpal tunnel syndrome, recent pneumonia August 2016 and recent pulmonary embolism August 2016. Patient persists emergency department today with reports of congestion and cough which began gradually on Saturday night into Saturday. Cough is productive of yellow/green sputum. Patient reports he believes he's had subjective fevers on Saturday but does not have a thermometer at home. Patient reports that he has left lower chest pain worse with coughing. Patient also has midsternal chest pain described as a ice pick sensation at rest and with cough. Patient does report diaphoresis, nausea and denies sweats with these symptoms. Patient reports he is fatigued more easily over the past few days and does report slight dizziness with standing or changing positions rapidly. Patient did have musculoskeletal pain with palpation of chest. Patient noted he lives alone and his by mouth intake is, "not that great ." Patient cannot remember the last bowel movement and does note abdominal distention/bloating. Patient was diagnosed to have a pneumonia and admitted to the floor on 10/30. He was transferred to the ICU on 10/31 for worsening respiratory distress. Patient was evaluated by cardiology for elevated troponin and a Meghna scan done on 11/02 revealed a fixed perfusion defect involving inferolateral wall including apex. Patient's respiratory status declined on 11/03 and he was placed on BiPAP. Critical care consult was requested by Dr. José Miguel Singleton from pulmonary medicine for worsening respiratory failure and possible need for intubation. When I evaluated the patient he was on BiPAP with full facemask. He was awake and alert and appeared to be tolerating BiPAP well. He appeared diaphoretic at the time. He denied any chest pain. 11/05: He was intubated and placed on mechanical ventilation yesterday for worsening respiratory status. He remains sedated, orally intubated on mechanical ventilation. Tolerating tube feeds. 11/06: Remains sedated, orally intubated on mechanical ventilation. Tolerating tube feeds. 11/07: Currently afebrile. Requiring additional Versed for sedation. Positive BM. Tolerating tube feeding. 11/08: Tmax 99.8. Currently 99.7. Tolerating tube feeds at goal 65 cc an hour. Positive BM. Versed currently at 10 mg an hour for sedation. Very agitated on attempted weans. MRI brain/EEG ordered for today. 11/09: Still not on Precedex drip still ordered. MRI brain/EEG showed no epileptiform activity/acute stroke. Still very agitated. We'll attempt CPAP trials again today. Subjective 11/10: Patient put off palate yesterday. Reintubated failed trial extubation. Severely agitated. Will reattempt CPAP trials today. Tmax 103. Noted a rash for blood pressure cuff is likely contact dermatitis. 11/11: Continue daily SBTs. Leukocytosis worse. Review cultures. Objective Vital Signs Date Time Temp Pulse Resp B/P Pulse Ox O2 Delivery O2 Flow Rate FiO2 11/11/16 08:00 102.5 76 20 117/57 96 11/11/16 08:00 50 11/11/16 07:00 Mechanical Ventilator Intake and Output 11/10/16 11/10/16 11/11/16 08:00 16:00 00:00 Intake Total 920 ml 1248 ml 1188 ml Output Total 975 ml 775 ml 650 ml Balance -55 ml 473 ml 538 ml Result Diagram: 11/11/16 0314 11/11/16 0314 Other Results Laboratory Tests Test 11/10/16 13:05 Blood Gas Puncture Site LT BRACHIAL Blood Gas Patient Temperature 98.6 Blood Gas HCO3 23 mmol/L (22-26) Blood Gas Base Excess -0.2 mmol/L (-2-2) Blood Gas Oxygen Saturation 95 % (90-100) Arterial Blood pH 7.48 (7.380-7.420) Arterial Blood Partial 31 mmHg (38-42) Pressure CO2 Arterial Blood Partial 93 mmHg Pressure O2 (61-120) Arterial Blood Oxygen Content 19.1 Vol % (12.0-20.0) Arterial Blood 1.1 % (0-4) Carboxyhemoglobin Arterial Blood Methemoglobin 1.0 % (0-2) Blood Gas Hemoglobin 14.3 G/DL (12.0-16.0) Oxygen Delivery Device VENTILATOR Blood Gas Ventilator Setting AC18/600/5PEEP Blood Gas Inspired Oxygen 50 % Imaging Last Impressions Chest X-Ray 11/09/16 0600 Signed Impressions: Service Date/Time: Wednesday, November 09, 2016 03:35 - CONCLUSION: 1. ET tube tip 1.6 cm above the sana. 2. Interval development of left lower lobe consolidation. Db Ramsay MD Brain MRI 11/09/16 0000 Signed Impressions: Service Date/Time: Wednesday, November 09, 2016 09:48 - CONCLUSION: 1. No acute infarct or other acute intracranial abnormality. 2. Mild, nonspecific chronic white matter signal changes. 3. Pansinusitis and apparent bilateral mastoiditis. Guerrero Cummings MD Skull X-Ray 11/08/16 0000 Signed Impressions: Service Date/Time: October 16:26 - CONCLUSION: No MRI incompatible foreign body is identified. Guerrero Cummings MD Myocardial Perfusion Scan Nuc Med 11/02/16 0600 Signed Impressions: Service Date/Time: Wednesday, November 02, 2016 09:10 - CONCLUSION: 1. Large sized moderate severity fixed defect involving the inferolateral wall including the apex. Ischemia is not excluded. No wall motion abnormalities are identified RISK CATEGORY: Intermediate (1-3%% Annual Mortality Rate) Ben Aden MD CT Angiography 10/30/16 0000 Signed Impressions: Service Date/Time: Sunday, October 30, 2016 14:54 - CONCLUSION: The multiple pulmonary emboli seen in August have completely resolved. I don't see any residual emboli on today's exam. There is new airspace disease in the left upper lobe possible pneumonia. Garett Layton MD Abdomen X-Ray 10/30/16 0000 Signed Impressions: Service Date/Time: Sunday, October 30, 2016 14:47 - CONCLUSION: Normal examination. Bony prominence of the right pubic symphysis Garett Layton MD Objective Remarks GENERAL: 55-year-old male, critically ill currently orotracheally intubated SKIN: Warm and dry. No rash HEAD: Atraumatic. Normocephalic. EYES: Pupils equal and round 2 mm bilaterally and reactive. No scleral icterus. No injection or drainage. ENT: No nasal bleeding or discharge. Mucous membranes pink and moist. NECK: Trachea midline. No JVD. CARDIOVASCULAR: Regular rate and rhythm. S1, S2. No S4. RESPIRATORY: Few crackles patient bases bilateral. GASTROINTESTINAL: Abdomen soft, non-tender, protuberant. Bowel sounds appreciated MUSCULOSKELETAL: Extremities with 1+ bilateral upper and lower extremity pitting edema. No obvious deformities. NEUROLOGICAL: Sedated on the ventilator. Positive gag. Positive corneal effects. Moves all 4 extremities spontaneously when agitated but not to command currently A/P Assessment and Plan Plan: Neuro/Psych: History CVA with left-sided residual weakness Carpal tunnel syndrome Sedation with propofol at 30 mcg/kg/m, fentanyl gtt 100 an hour and Versed drips at 10 mg an hour for sedation/analgesia while intubated -Precedex drip added yesterday and will continue to increase today. Goal of RASS -2 10 mg daily Zyprexa started 11/05 in view of agitation despite propofol. Daily sedation vacation. Cardiovascular: Hypertension Dyslipidemia Ischemic heart disease IV hydration, watch for hypotension. Hold Lasix and losartan light of acute kidney injury. Continue/metoprolol 12.5 twice a day hypertension, 81 mg daily aspirin for abnormal Lexiscan below/and atorvastatin 20 mg daily for dyslipidemia Lexiscan revealed large fixed defects inferior lateral wall and apex. Intermediate 1-3% Pulmonary: Pneumonia COPD exacerbation History of bilateral PE negative CTA chest this admission Continue mechanical ventilation. ACV 20/500/5/40 On anticoagulation for PE with Xarelto has been held in light of renal wishes. Should be on 15 mg daily. Vent bundle, bronchodilators 4 times a day, Solu-Medrol 40 every 12 to be continued Neurology/Dr. singleton following GI/liver: Tolerating tube feeds with Glucerna 1.5 goal 65 cc an hour Protonix for GI prophylaxis Positive BM's without bowel regimen ID: Mastoiditis Sinusitis Continue empiric antibiotic coverage with IV vancomycin/ Zithromax. Switch Zosyn since 10/30 - 11/09 to cefepime today for mastoiditis coverage Urine for strep pneumo and Legionella antigen negative. Nasal washings for influenza a and B negative. Sputum cultures -11/04 and 01/03. Blood cultures negative so far. Recheck blood cultures 2/sputum today. Endocrine: Diabetes mellitus with neuropathy Continue Levemir 90 units twice a day. Sliding-scale insulin past 24 hours. Heme: Normocytic anemia Follow CBC, on anticoagulation with Xarelto 15 mg twice a day for PE. Access - Utilize peripheral IV. Central line if indicated Prophylaxis - GI - Protonix - DVT - SCDs/heparin drip Overall impression: Unable to extubate, failing weaning trials. Critical care 34 mins Elroy Kaminski MD Nov 11, 2016 12:06
[2016-11-11] MEDS: PANTOPRAZOLE SOD 40 MG DELAYED RELEASE TAB PO SCH (14:00)
[2016-11-11 16:17] LABS: APTT (PATIENT) 61.3 SEC (24.3-30.1)
[2016-11-11] MEDS: AZITHROMYCIN INJ 500 MG in SODIUM CHLOR 0.9% 250 ML INJ 250 ML IV SCH (17:51)
[2016-11-11] MEDS: HEPARIN INJ 25,000 UNITS in SODIUM CHLOR 0.9% 250 ML INJ 250 ML IV SCH (20:05)
[2016-11-11 21:37] LABS: APTT (PATIENT) 78.4 SEC (24.3-30.1)
[2016-11-11] MEDS ORDERED: PHARMACY ORDERED LAB XX ONE (21:45)
[2016-11-12] VITALS (15 sets, daily range): BP systolic 96–152; BP diastolic 55–74; PULSE 74–124; RESP 16–22; TEMP 98.4–100.1; O2SAT 91–100
[2016-11-12] MEDS: DEXTROSE 50% IN WATER 50 ML VIAL(D50) IV PRN ×4 (00:30→05:34)
[2016-11-12] MEDS: DOCUSATE SODIUM 100 MG CAP PO SCH ×3 (00:53→23:48)
[2016-11-12] MEDS: CEFEPIME INJ 2,000 MG in SODIUM CHLORIDE 0.9% INJ 100 ML IV SCH (00:53)
[2016-11-12] MEDS: DEXMEDETOMIDINE INJ 1,000 MCG in SODIUM CHLOR 0.9% 250 ML INJ 240 ML IV SCH (03:28)
[2016-11-12] MEDS: oxyCODONE HCL ORAL CONC 20 MG/ML SYRINGE PO SCH ×5 (04:52→23:47)
[2016-11-12] MEDS: metroNIDAZOLE 500 MG TAB PO SCH (04:52)
[2016-11-12] MEDS: INSULIN ASPART SUPPLEMENTAL SCALE SQ SCH ×5 (05:35→23:47)
--- NOTE | 2016-11-12 08:00 | PD.TRANSFR ---
Transfer Summary Admission Date Oct 30, 2016 at 13:40 Transfer Date: Nov 13, 2016 Admitting Diagnosis pulmonary edema, pneumonia, rule out PE Diagnoses: (1) Acute hypoxemic respiratory failure Diagnosis: Principal (2) Bilateral pulmonary embolism Diagnosis: Secondary Significant Findings No recurrent PE (Hx of PE 08/17) No positive sputum cultures. Transfer Summary/Subjective Admitted with DX pneumonia. Required intubation. No cultures positive. CXR cleared up, extubated 11/12 a.m. Heparin gtt for August 2016 pulmonary embolism stopped and xarelto restarted 11/13. Dr. Ronn Singleton consulting. Objective Vital Signs Date Time Temp Pulse Resp B/P Pulse Ox O2 Delivery O2 Flow Rate FiO2 11/12/16 06:00 78 11/12/16 04:00 99.5 22 148/71 91 11/11/16 20:11 Nasal Cannula 6.00 11/11/16 13:23 50 Intake and Output 11/11/16 11/11/16 11/12/16 08:00 16:00 00:00 Intake Total 824 ml 655 ml 1200 ml Output Total 350 ml 1900 ml Balance 474 ml 655 ml -700 ml Result Diagram: 11/11/16 0314 11/12/16 0248 Imaging Last Impressions Chest X-Ray 11/09/16 0600 Signed Impressions: Service Date/Time: Wednesday, November 09, 2016 03:35 - CONCLUSION: 1. ET tube tip 1.6 cm above the sana. 2. Interval development of left lower lobe consolidation. Db Ramsay MD Brain MRI 11/09/16 0000 Signed Impressions: Service Date/Time: Wednesday, November 09, 2016 09:48 - CONCLUSION: 1. No acute infarct or other acute intracranial abnormality. 2. Mild, nonspecific chronic white matter signal changes. 3. Pansinusitis and apparent bilateral mastoiditis. Guerrero Cummings MD Skull X-Ray 11/08/16 0000 Signed Impressions: Service Date/Time: October 16:26 - CONCLUSION: No MRI incompatible foreign body is identified. Guerrero Cummings MD Myocardial Perfusion Scan Nuc Med 11/02/16 0600 Signed Impressions: Service Date/Time: Wednesday, November 02, 2016 09:10 - CONCLUSION: 1. Large sized moderate severity fixed defect involving the inferolateral wall including the apex. Ischemia is not excluded. No wall motion abnormalities are identified RISK CATEGORY: Intermediate (1-3%% Annual Mortality Rate) Ben Aden MD CT Angiography 10/30/16 0000 Signed Impressions: Service Date/Time: Sunday, October 30, 2016 14:54 - CONCLUSION: The multiple pulmonary emboli seen in August have completely resolved. I don't see any residual emboli on today's exam. There is new airspace disease in the left upper lobe possible pneumonia. Garett Layton MD Abdomen X-Ray 10/30/16 0000 Signed Impressions: Service Date/Time: Sunday, October 30, 2016 14:47 - CONCLUSION: Normal examination. Bony prominence of the right pubic symphysis Garett Layton MD Objective Remarks GENERAL: 55-year-old male, critically ill currently orotracheally intubated SKIN: Warm and dry. No rash HEAD: Atraumatic. Normocephalic. EYES: Pupils equal and round 2 mm bilaterally and reactive. No scleral icterus. No injection or drainage. ENT: No nasal bleeding or discharge. Mucous membranes pink and moist. NECK: Trachea midline. No JVD. CARDIOVASCULAR: Regular rate and rhythm. S1, S2. No S4. RESPIRATORY: Few crackles patient bases bilateral. GASTROINTESTINAL: Abdomen soft, non-tender, protuberant. Bowel sounds appreciated MUSCULOSKELETAL: Extremities with 1+ bilateral upper and lower extremity pitting edema. No obvious deformities. NEUROLOGICAL: Sedated on the ventilator. Positive gag. Positive corneal effects. Moves all 4 extremities spontaneously when agitated but not to command currently A/P Assessment and Plan Plan: Neuro/Psych: History CVA with left-sided residual weakness Carpal tunnel syndrome Sedation with propofol at 30 mcg/kg/m, fentanyl gtt 100 an hour and Versed drips at 10 mg an hour for sedation/analgesia while intubated -Precedex drip added yesterday and will continue to increase today. Goal of RASS -2 10 mg daily Zyprexa started 11/05 in view of agitation despite propofol. Daily sedation vacation. Cardiovascular: Hypertension Dyslipidemia Ischemic heart disease IV hydration, watch for hypotension. Hold Lasix and losartan light of acute kidney injury. Continue/metoprolol 12.5 twice a day hypertension, 81 mg daily aspirin for abnormal Lexiscan below/and atorvastatin 20 mg daily for dyslipidemia Lexiscan revealed large fixed defects inferior lateral wall and apex. Intermediate 1-3% Pulmonary: Pneumonia COPD exacerbation History of bilateral PE negative CTA chest this admission Continue mechanical ventilation. ACV 20/500/5/40 On anticoagulation for PE with Xarelto has been held in light of renal wishes. Should be on 15 mg daily. Vent bundle, bronchodilators 4 times a day, Solu-Medrol 40 every 12 to be continued Neurology/Dr. singleton following GI/liver: Tolerating tube feeds with Glucerna 1.5 goal 65 cc an hour Protonix for GI prophylaxis Positive BM's without bowel regimen ID: Mastoiditis Sinusitis Continue empiric antibiotic coverage with IV vancomycin/ Zithromax. Switch Zosyn since 10/30 - 11/09 to cefepime today for mastoiditis coverage Urine for strep pneumo and Legionella antigen negative. Nasal washings for influenza a and B negative. Sputum cultures -11/04 and 01/03. Blood cultures negative so far. Recheck blood cultures 2/sputum today. Endocrine: Diabetes mellitus with neuropathy Continue Levemir 90 units twice a day. Sliding-scale insulin past 24 hours. Heme: Normocytic anemia Follow CBC, on anticoagulation with Xarelto 15 mg twice a day for PE. Access - Utilize peripheral IV. Central line if indicated Prophylaxis - GI - Protonix - DVT - SCDs/heparin drip Overall impression: Unable to extubate, failing weaning trials. Critical care 34 mins Elroy Kaminski MD Nov 12, 2016 08:00
[2016-11-12] MEDS: VENLAFAXINE HCL XR 75 MG CAP PO SCH (08:21)
[2016-11-12] MEDS: METOPROLOL TARTRATE 25 MG TAB PO SCH ×4 (08:22→22:21)
[2016-11-12] MEDS: PREGABALIN 75 MG CAP PO SCH ×2 (08:22→22:21)
[2016-11-12] MEDS: ASPIRIN EC 81 MG TABEC PO SCH (08:22)
[2016-11-12] MEDS: OLANZapine 10 MG TAB PO SCH (08:22)
[2016-11-12] MEDS: MAGNESIUM OXIDE 400 MG TAB PO SCH (08:22)
[2016-11-12] MEDS: ATORVASTATIN 20 MG TAB PO SCH (08:22)
[2016-11-12] MEDS: TAMSULOSIN HCL 0.4 MG CAP PO SCH (08:22)
[2016-11-12] MEDS: LACTULOSE SYRUP 20 GM/30 ML CUP PO SCH (08:23)
[2016-11-12] MEDS: SODIUM CHLORIDE 0.9% FLUSH 5 ML FLUSH FLUSH SCH ×2 (08:23→22:22)
[2016-11-12] MEDS: INSULIN DETEMIR 100 UNITS/ML VIAL SQ SCH ×2 (08:24→22:21)
[2016-11-12] MEDS: POLYETHYLENE GLYCOL 17 GM PKG PO SCH (08:24)
[2016-11-12] MEDS: SENNOSIDES 8.6 MG TAB PO SCH ×2 (08:24→19:08)
[2016-11-12] MEDS: RIVAROXABAN 15 MG TAB PO SCH ×2 (08:34→22:21)
[2016-11-12] MEDS: RESP: ALBUTEROL 2.5 MG/IPRATROPIUM 0.5 MG NEB (SCH) NEB ×4 (08:40→21:22)
[2016-11-12] MEDS: PANTOPRAZOLE SOD 40 MG DELAYED RELEASE TAB PO SCH (13:20)
[2016-11-12] MEDS: VANCOMYCIN INJ 1,250 MG in SODIUM CHLOR 0.9% 250 ML INJ 250 ML IV SCH (16:00)
[2016-11-12] MEDS: predniSONE 20 MG TAB PO SCH (22:22)
[2016-11-12] MEDS: guaiFENesin/CODEINE SYRUP 200 MG/20 MG/10 ML CUP PO PRN (23:45)
[2016-11-12] MEDS: HYDROmorphone HCL PF 1 MG/ML VIAL IV PUSH PRN (23:46)
[2016-11-13] MEDS: ACETAMINOPHEN 325 MG TAB PO PRN (01:19)
[2016-11-13 04:31] VITALS: BP 140/65; PULSE 107; RESP 20; TEMP 97.9; O2SAT 94
[2016-11-13] MEDS: oxyCODONE HCL ORAL CONC 20 MG/ML SYRINGE PO SCH ×3 (04:35→16:59)
[2016-11-13] MEDS: guaiFENesin/CODEINE SYRUP 200 MG/20 MG/10 ML CUP PO PRN (04:38)
[2016-11-13] MEDS: INSULIN ASPART SUPPLEMENTAL SCALE SQ SCH ×4 (04:41→21:01)
[2016-11-13] MEDS: HYDROmorphone HCL PF 1 MG/ML VIAL IV PUSH PRN ×3 (06:38→20:59)
[2016-11-13 08:00] VITALS: BP 127/67; PULSE 100; RESP 18; TEMP 99.5; O2SAT 95
[2016-11-13 08:29] LABS: AUTOMATED NEUTROPHIL # 15.5 TH/MM3 (1.8-7.7); BASOPHIL # 0.1 TH/MM3 (0-0.2); BASOPHIL % 0.8 % (0.0-2.0); HEMATOCRIT 40.2 % (39.0-51.0); HEMO FLAGS DIFF FINAL; LYMPH % 4.2 % (9.0-44.0); LYMPHOCYTE # 0.7 TH/MM3 (1.0-4.8); MEAN CELL VOLUME 89.7 FL (80.0-100.0); MEAN CORPUSCULAR HEMOGLOBIN 28.9 PG (27.0-34.0); MEAN CORPUSCULAR HGB CONC 32.2 % (32.0-36.0); MONO % 5.9 % (0.0-8.0); NEUT % 89.1 % (16.0-70.0); PLATELET COUNT 127 TH/MM3 (150-450); RED BLOOD COUNT 4.49 MIL/MM3 (4.50-5.90); RED CELL DISTRIBUTION WIDTH 15.1 % (11.6-17.2); WHITE BLOOD COUNT 17.4 TH/MM3 (4.0-11.0)
[2016-11-13 08:59] LABS: BICARBONATE 26.7 MEQ/L (21.0-32.0); POTASSIUM 4.7 MEQ/L (3.5-5.1)
[2016-11-13] MEDS: POLYETHYLENE GLYCOL 17 GM PKG PO SCH (09:00)
[2016-11-13] MEDS: LACTULOSE SYRUP 20 GM/30 ML CUP PO SCH (09:00)
[2016-11-13] MEDS: VENLAFAXINE HCL XR 75 MG CAP PO SCH (09:00)
[2016-11-13] MEDS: SENNOSIDES 8.6 MG TAB PO SCH ×2 (09:00→20:43)
[2016-11-13] MEDS: RESP: ALBUTEROL 2.5 MG/IPRATROPIUM 0.5 MG NEB (SCH) NEB ×4 (09:14→19:59)
[2016-11-13 09:18] VITALS: O2SAT 95
[2016-11-13] MEDS ORDERED: DEXT 5%-NACL 0.45% 1000 ML INJ 1,000 ML IV SCH (09:45)
--- NOTE | 2016-11-13 10:15 | HHI.PR ---
Subjective Remarks No acute events overnight. Patient tachycardic to 119. Continues to complain of cough accompanied by left anterior chest pain which is reproducible. Endorses SOB. Objective Vitals Vital Signs Date Time Temp Pulse Resp B/P Pulse Ox O2 Delivery O2 Flow Rate FiO2 11/13/16 09:18 95 Nasal Cannula 5.00 11/13/16 08:00 99.5 100 18 127/67 95 11/13/16 04:31 97.9 107 20 140/65 94 11/13/16 00:00 93 Nasal Cannula 5.00 11/12/16 23:43 100.1 119 22 116/55 93 11/12/16 22:33 94 Venturi Mask 6.00 50 11/12/16 22:19 106 111/59 11/12/16 21:45 99.0 20 96/55 92 11/12/16 21:22 94 Nasal Cannula 5.00 11/12/16 17:53 98.5 124 18 124/65 92 11/12/16 16:00 98.4 120 16 147/72 100 11/12/16 16:00 119 11/12/16 14:00 113 11/12/16 12:00 99.1 102 16 125/72 96 11/12/16 12:00 75 11/12/16 10:00 107 I/O 11/12/16 11/12/16 11/12/16 11/13/16 11/13/16 11/13/16 07:00 15:00 23:00 07:00 15:00 23:00 Intake Total 1650 ml 869 ml Output Total 700 ml 950 ml 700 ml Balance 950 ml -81 ml -700 ml Intake Oral 950 ml 600 ml IV Total 700 ml 269 ml Output Urine Total 700 ml 950 ml 700 ml Bladder Scan Volume Amount 400 ml 400 ml # Bowel Movements 2 3 1 Result Diagram: 11/13/16 0745 11/13/16 0745 Objective Remarks GENERAL: 55-year-old male, NAD SKIN: Warm and dry. Papular rash on RUE HEAD: Atraumatic. Normocephalic. EYES: Pupils equal and round and reactive. No scleral icterus. No injection or drainage. ENT: No nasal bleeding or discharge. Mucous membranes pink and moist. NECK: Trachea midline. No JVD. CARDIOVASCULAR: Regular rate and rhythm. No m/r/g RESPIRATORY: Bilat basilar crackles. GASTROINTESTINAL: Abdomen soft, non-tender, protuberant. Bowel sounds appreciated MUSCULOSKELETAL: Extremities with 1+ bilateral lower extremity pitting edema. No obvious deformities. NEUROLOGICAL: A&O x 4. A/P Problem List: (1) Acute hypoxemic respiratory failure ICD Code: J96.01 Status: Acute (2) Bilateral pulmonary embolism ICD Code: I26.99 Status: Chronic (3) COPD exacerbation ICD Code: J44.1 Status: Acute (4) History of stroke ICD Code: Z86.73 Status: Chronic (5) Hyperlipidemia ICD Code: E78.5 Status: Chronic (6) DM2 (diabetes mellitus, type 2) ICD Code: E11.9 Status: Chronic (7) Pneumonia ICD Code: J18.9 Status: Acute (8) Aortic stenosis, mild ICD Code: I35.0 Status: Chronic (9) HTN (hypertension) ICD Code: I10 Status: Chronic (10) Mastoiditis ICD Code: H70.90 Status: Acute Assessment and Plan 1. Pneumonia with acute respiratory failure requiring intubation. Patient successfully extubated 11/12. Stable on 5L nc. Sputum cx positve for respiratory johnny x 2. Blood cx NG x 3 days. - Continue Vanc (started 10/30), Zosyn (10/30-11/09), Cefepime (11/13-) - Duonebs QID and PRN - Bumex x 1 for possible fluid overload, CXR today 2. History of bilateral PE in August 2016. CTA negative on this admission. - Xarelto 15 mg BID 3. COPD Exacerbation - Antibiotics as above - Prednisone 20 mg BID 4. Ischemic heart disease, HTN, HLD - Lasix and losartan were held due to acute kidney injury. Increased metoprolol to 25 BID, 81 mg daily aspirin for abnormal Lexiscan below/and atorvastatin 20 mg daily for dyslipidemia. - Lexiscan revealed large fixed defects inferior lateral wall and apex. Intermediate 1-3% - ECHO with EF of 50-55%, - Follow BMP in AM. If improving, resume Losartan. 5. MIRNA. BUN/Cr increased today - Monitor. May need to dc Xarelto if renal function does not improve - Bumex x 1 today for volume overload 6. Type 2 DM - Continue Levemir 90 units BID - SSI 7. Sinusitis/Mastoiditis seen on CT - Zosyn 10/30-11/09, Cefepime added 11/13 FEN: IV Fluids: HLIV Diet: 1800 ADA Electrolytes: Replete PRN Anticoag: Xarelto, SCDs GI prophylaxis: Not indicated Patient seen and evaluated with resident under direct supervision, agree with assessment and plan. I attest that I had a [id number] encounter with the patient on the same day, and personally performed and documented my assessment and findings in the medical record. Problem Qualifiers (1) Pneumonia: Qualified Code: J18.1 - Pneumonia of left lower lobe due to infectious organism Josefina Smith MD R3 Nov 13, 2016 10:15 Ajay Fowler MD Nov 13, 2016 13:00
[2016-11-13] MEDS: predniSONE 20 MG TAB PO SCH ×2 (10:22→20:43)
[2016-11-13] MEDS: RIVAROXABAN 15 MG TAB PO SCH ×2 (10:23→20:43)
[2016-11-13] MEDS: METOPROLOL TARTRATE 25 MG TAB PO SCH ×2 (10:23→20:44)
[2016-11-13] MEDS: TAMSULOSIN HCL 0.4 MG CAP PO SCH (10:23)
[2016-11-13] MEDS: MAGNESIUM OXIDE 400 MG TAB PO SCH (10:23)
[2016-11-13] MEDS: INSULIN DETEMIR 100 UNITS/ML VIAL SQ SCH ×2 (10:23→20:57)
[2016-11-13] MEDS: OLANZapine 10 MG TAB PO SCH (10:23)
[2016-11-13] MEDS: PREGABALIN 75 MG CAP PO SCH ×2 (10:23→20:43)
[2016-11-13] MEDS: ASPIRIN EC 81 MG TABEC PO SCH (10:23)
[2016-11-13] MEDS: ATORVASTATIN 20 MG TAB PO SCH (10:23)
[2016-11-13] MEDS: SODIUM CHLORIDE 0.9% FLUSH 5 ML FLUSH FLUSH SCH ×2 (10:35→20:57)
[2016-11-13] MEDS: VANCOMYCIN INJ 1,250 MG in SODIUM CHLOR 0.9% 250 ML INJ 250 ML IV SCH (10:35)
[2016-11-13] MEDS ORDERED: BUMETANIDE INJ 1 MG/4 ML VIAL IV PUSH ONE (11:00)
--- NOTE | 2016-11-13 11:48 | RADRPT ---
EXAM DATE/TIME: 11/13/2016 10:13 [facility] COMPARISON: CHEST SINGLE AP, November 11, 2016, 3:58. INDICATIONS: Short of breath. MEDICAL HISTORY: Hypertension. Chronic obstructive pulmonary disease. Diabetes mellitus type II. Pulmonary embolus , Pneumonia. SURGICAL HISTORY: None. ENCOUNTER: Subsequent ACUITY: 1 week PAIN SCORE: 3/10 LOCATION: Bilateral chest FINDINGS: Heart size normal. There is increased density at the left base. The right lung is clear. Costophr enic angles are clear. Patient has surgical hardware at the left clavicle. There does appear to be sclerosis at the superior aspect of the left humeral head which may be from prior avascular necrosis. Patient has an old un-united fracture at the distal right clavicle. CONCLUSION: Left base consolidation or atelectasis. Guerrero Johnston MD on November 13, 2016 at 11:37 Board Certified Radiologist. This report was verified electronically.
[2016-11-13 12:00] VITALS: BP 118/78; PULSE 92; RESP 20; TEMP 96.8; O2SAT 95
[2016-11-13] MEDS: CEFEPIME INJ 2,000 MG in SODIUM CHLORIDE 0.9% INJ 100 ML IV SCH ×2 (12:25→17:20)
[2016-11-13] MEDS: DOCUSATE SODIUM 100 MG CAP PO SCH (12:28)
[2016-11-13 16:00] VITALS: BP 142/71; PULSE 96; RESP 24; TEMP 96.7; O2SAT 96
[2016-11-13 20:00] VITALS: BP 138/79; PULSE 120; RESP 18; TEMP 97; O2SAT 99
[2016-11-14] VITALS (8 sets, daily range): BP systolic 134–156; BP diastolic 76–86; PULSE 95–114; RESP 17–22; TEMP 96.4–97.4; O2SAT 91–98
[2016-11-14] MEDS: oxyCODONE HCL ORAL CONC 20 MG/ML SYRINGE PO SCH ×3 (00:24→08:37)
[2016-11-14] MEDS: DOCUSATE SODIUM 100 MG CAP PO SCH ×3 (01:32→23:54)
[2016-11-14] MEDS: CEFEPIME INJ 2,000 MG in SODIUM CHLORIDE 0.9% INJ 100 ML IV SCH ×2 (01:32→08:36)
[2016-11-14] MEDS: HYDROmorphone HCL PF 1 MG/ML VIAL IV PUSH PRN ×2 (01:32→23:12)
[2016-11-14] MEDS: VANCOMYCIN INJ 1,250 MG in SODIUM CHLOR 0.9% 250 ML INJ 250 ML IV SCH (03:36)
[2016-11-14] MEDS ORDERED: PHARMACY ORDERED LAB XX ONE (03:45)
[2016-11-14 04:25] LABS: AUTOMATED NEUTROPHIL # 14.8 TH/MM3 (1.8-7.7); BASOPHIL % 0.1 % (0.0-2.0); EOSINOPHIL % 0.2 % (0.0-4.0); HEMATOCRIT 35.8 % (39.0-51.0); HEMO FLAGS DIFF FINAL; LYMPH % 3.8 % (9.0-44.0); LYMPHOCYTE # 0.6 TH/MM3 (1.0-4.8); MEAN CELL VOLUME 90.6 FL (80.0-100.0); MEAN CORPUSCULAR HEMOGLOBIN 28.9 PG (27.0-34.0); MEAN CORPUSCULAR HGB CONC 31.9 % (32.0-36.0); MONO % 7.3 % (0.0-8.0); NEUT % 88.6 % (16.0-70.0); PLATELET COUNT 127 TH/MM3 (150-450); RED BLOOD COUNT 3.95 MIL/MM3 (4.50-5.90); RED CELL DISTRIBUTION WIDTH 14.8 % (11.6-17.2); WHITE BLOOD COUNT 16.7 TH/MM3 (4.0-11.0)
[2016-11-14 04:34] LABS: POTASSIUM 4.2 MEQ/L (3.5-5.1); VANCOMYCIN TROUGH 14.1 MCG/ML (5.0-10.0)
[2016-11-14] MEDS: DEXTROSE 50% IN WATER 50 ML VIAL(D50) IV PRN ×3 (04:43→12:33)
[2016-11-14] MEDS: INSULIN ASPART SUPPLEMENTAL SCALE SQ SCH ×4 (05:08→23:21)
[2016-11-14] MEDS ORDERED: DEXT 5%-NACL 0.45% 500 ML INJ 500 ML IV ONE (06:45)
[2016-11-14] MEDS: SENNOSIDES 8.6 MG TAB PO SCH ×2 (07:52→20:22)
[2016-11-14] MEDS: ATORVASTATIN 20 MG TAB PO SCH (07:52)
[2016-11-14] MEDS: RIVAROXABAN 15 MG TAB PO SCH ×2 (07:52→20:17)
[2016-11-14] MEDS: predniSONE 20 MG TAB PO SCH (07:52)
[2016-11-14] MEDS: METOPROLOL TARTRATE 25 MG TAB PO SCH ×2 (07:52→20:17)
[2016-11-14] MEDS: PREGABALIN 75 MG CAP PO SCH ×2 (07:52→20:17)
[2016-11-14] MEDS: TAMSULOSIN HCL 0.4 MG CAP PO SCH (07:52)
[2016-11-14] MEDS: MAGNESIUM OXIDE 400 MG TAB PO SCH (07:53)
[2016-11-14] MEDS: OLANZapine 10 MG TAB PO SCH (07:53)
[2016-11-14] MEDS: ASPIRIN EC 81 MG TABEC PO SCH (07:53)
[2016-11-14] MEDS: RESP: ALBUTEROL 2.5 MG/IPRATROPIUM 0.5 MG NEB (SCH) NEB ×3 (08:00→15:52)
[2016-11-14] MEDS: guaiFENesin/CODEINE SYRUP 200 MG/20 MG/10 ML CUP PO PRN ×3 (08:00→23:12)
[2016-11-14] MEDS: POLYETHYLENE GLYCOL 17 GM PKG PO SCH (08:36)
[2016-11-14] MEDS: LACTULOSE SYRUP 20 GM/30 ML CUP PO SCH (08:36)
[2016-11-14] MEDS: INSULIN DETEMIR 100 UNITS/ML VIAL SQ SCH ×2 (08:36→20:25)
--- NOTE | 2016-11-14 08:40 | HHI.PR ---
Subjective Remarks Hypoglycemic this morning. States he normally takes 45 units of Levemir in the morning and at night. Patient reports feeling weak. No chest pain. Still gets some shortness of breath with activity. Objective Vitals Vital Signs Date Time Temp Pulse Resp B/P Pulse Ox O2 Delivery O2 Flow Rate FiO2 11/14/16 04:00 97.0 95 18 148/81 97 11/14/16 00:00 96.9 114 17 148/77 91 11/13/16 20:00 97.0 120 18 138/79 99 11/13/16 19:59 Nasal Cannula 5.00 11/13/16 16:00 96.7 96 24 142/71 96 11/13/16 12:00 96.8 92 20 118/78 95 11/13/16 09:18 95 Nasal Cannula 5.00 I/O 11/13/16 11/13/16 11/13/16 11/14/16 11/14/16 11/14/16 07:00 15:00 23:00 07:00 15:00 23:00 Intake Total 1080 ml 480 ml Output Total 700 ml 300 ml Balance -700 ml 780 ml 480 ml Intake Oral 1080 ml 480 ml Output Urine Total 700 ml 300 ml Bladder Scan Volume Amount 400 ml 400 ml # Voids 2 Result Diagram: 11/14/16 0340 11/14/16 0340 Imaging Last Impressions Chest X-Ray 11/13/16 0000 Signed Impressions: Service Date/Time: Sunday, November 13, 2016 10:13 - CONCLUSION: Left base consolidation or atelectasis. Guerrero Johnston MD Upper Extremity Ultrasound 11/10/16 0000 Signed Impressions: Service Date/Time: Thursday, November 10, 2016 13:28 - CONCLUSION: 1. Nonocclusive thrombus in the right internal jugular vein. 2. Occlusive thrombus in the left cephalic vein. Guerrero Johnston MD Lower Extremity Ultrasound 11/10/16 0000 Signed Impressions: Service Date/Time: Thursday, November 10, 2016 13:04 - CONCLUSION: No DVT. Guerrero Johnston MD Brain MRI 11/09/16 0000 Signed Impressions: Service Date/Time: Wednesday, November 09, 2016 09:48 - CONCLUSION: 1. No acute infarct or other acute intracranial abnormality. 2. Mild, nonspecific chronic white matter signal changes. 3. Pansinusitis and apparent bilateral mastoiditis. Guerrero Cummings MD Skull X-Ray 11/08/16 0000 Signed Impressions: Service Date/Time: October 16:26 - CONCLUSION: No MRI incompatible foreign body is identified. Guerrero Cummings MD Myocardial Perfusion Scan [facility] [place] [facility] 11/02/16 0600 Signed Impressions: Service Date/Time: Wednesday, November 02, 2016 09:10 - CONCLUSION: 1. Large sized moderate severity fixed defect involving the inferolateral wall including the apex. Ischemia is not excluded. No wall motion abnormalities are identified RISK CATEGORY: Intermediate (1-3%% Annual Mortality Rate) Ben Aden MD CT Angiography 10/30/16 0000 Signed Impressions: Service Date/Time: Sunday, October 30, 2016 14:54 - CONCLUSION: The multiple pulmonary emboli seen in August have completely resolved. I don't see any residual emboli on today's exam. There is new airspace disease in the left upper lobe possible pneumonia. Garett Layton MD Abdomen X-Ray 10/30/16 0000 Signed Impressions: Service Date/Time: Sunday, October 30, 2016 14:47 - CONCLUSION: Normal examination. Bony prominence of the right pubic symphysis Garett Layton MD Objective Remarks GENERAL: Obese male in no acute distress. CARDIOVASCULAR: Normal rate and regular rhythm without murmurs, gallops, or rubs. RESPIRATORY: Good respiratory efforts. Breath sounds diminished at the bases bilaterally, otherwise clear to auscultation. GASTROINTESTINAL: Abdomen soft, non-tender, non-distended. Normal active bowel sounds MUSCULOSKELETAL: Extremities without cyanosis, or edema. NEURO: Alert & Oriented x4 to person, place, time, situation. Moves all ext x4 PSYCH: Appropriate mood and affect. A/P Problem List: (1) Acute hypoxemic respiratory failure ICD Code: J96.01 Status: Acute (2) Bilateral pulmonary embolism ICD Code: I26.99 Status: Chronic (3) COPD exacerbation ICD Code: J44.1 Status: Acute (4) History of stroke ICD Code: Z86.73 Status: Chronic (5) Hyperlipidemia ICD Code: E78.5 Status: Chronic (6) DM2 (diabetes mellitus, type 2) ICD Code: E11.9 Status: Chronic (7) Pneumonia ICD Code: J18.9 Status: Acute (8) Aortic stenosis, mild ICD Code: I35.0 Status: Chronic (9) HTN (hypertension) ICD Code: I10 Status: Chronic (10) Mastoiditis ICD Code: H70.90 Status: Acute Assessment and Plan 55-year-old male with: 1. Pneumonia with acute respiratory failure requiring intubation. Patient successfully extubated 11/12. Stable on 5L nc. Sputum cx positve for respiratory johnny x 2. Blood cx NG x 3 days. -Status post vancomycin, Zosyn, and cefepime. Transition to oral antibiotics with Levaquin. - Duonebs QID and PRN 2. History of bilateral PE in August 2016. CTA negative on this admission. - Xarelto 15 mg BID 3. COPD Exacerbation - Antibiotics as above - Prednisone taper. Changed to 20 mg daily 4. Ischemic heart disease, HTN, HLD - Resume losartan. Metoprolol 25 BID, 81 mg daily aspirin for abnormal Lexiscan below/and atorvastatin 20 mg daily for dyslipidemia. - Lexiscan revealed large fixed defects inferior lateral wall and apex. Intermediate 1-3% - ECHO with EF of 50-55%, 5. MIRNA. Resolved. 6. Type 2 DM - Episodes of hypoglycemia. Decrease Levemir to 45 units twice a day. Continue Accu-Chek with sliding scale insulin. 7. Sinusitis/Mastoiditis seen on CT -Status post Zosyn and cefepime. Patient transitioned to Levaquin and Ceftin. FEN: IV Fluids: HLIV Diet: 1800 ADA Electrolytes: Replete PRN Anticoag: Xarelto, SCDs GI prophylaxis: Not indicated Problem Qualifiers (1) Pneumonia: Qualified Code: J18.1 - Pneumonia of left lower lobe due to infectious organism Ajay Fowler MD Nov 14, 2016 08:40
[2016-11-14] MEDS: VENLAFAXINE HCL XR 75 MG CAP PO SCH (09:00)
[2016-11-14] MEDS: SODIUM CHLORIDE 0.9% FLUSH 5 ML FLUSH FLUSH SCH ×2 (09:00→20:17)
[2016-11-14] MEDS: LEVOFLOXACIN 750 MG TAB PO SCH (14:47)
[2016-11-14] MEDS: CEFUROXIME AXETIL 250 MG TAB PO SCH (20:17)
[2016-11-14] MEDS ORDERED: VANCOMYCIN INJ 1,500 MG in SODIUM CHLORID 0.9% 500 ML INJ 500 ML IV SCH (22:00)
[2016-11-14] MEDS: ONDANSETRON HCL 4 MG/2 ML VIAL IVP PRN (23:15)
[2016-11-15] VITALS (8 sets, daily range): BP systolic 112–149; BP diastolic 68–81; PULSE 109–130; RESP 17–24; TEMP 96.6–100.5; O2SAT 92–95
[2016-11-15] MEDS: INSULIN ASPART SUPPLEMENTAL SCALE SQ SCH ×4 (05:58→23:33)
[2016-11-15] MEDS: guaiFENesin/CODEINE SYRUP 200 MG/20 MG/10 ML CUP PO PRN (06:06)
[2016-11-15] MEDS: RESP: ALBUTEROL 2.5 MG/IPRATROPIUM 0.5 MG NEB (PRN) NEB (06:30)
[2016-11-15] MEDS ORDERED: PANTOPRAZOLE SOD 40 MG DELAYED RELEASE TAB PO ONE (07:00)
[2016-11-15] MEDS: PANTOPRAZOLE SOD 40 MG DELAYED RELEASE TAB PO SCH (07:01)
[2016-11-15 08:13] LABS: HEMATOCRIT 32.5 % (39.0-51.0); MEAN CELL VOLUME 88.7 FL (80.0-100.0); MEAN CORPUSCULAR HEMOGLOBIN 30.1 PG (27.0-34.0); PLATELET COUNT 137 TH/MM3 (150-450); RED BLOOD COUNT 3.67 MIL/MM3 (4.50-5.90); RED CELL DISTRIBUTION WIDTH 14.8 % (11.6-17.2); REVIEW FLAG FINAL
[2016-11-15 08:44] LABS: BICARBONATE 28.6 MEQ/L (21.0-32.0); POTASSIUM 4.4 MEQ/L (3.5-5.1)
[2016-11-15] MEDS ORDERED: predniSONE 20 MG TAB PO SCH (09:00)
[2016-11-15] MEDS: VENLAFAXINE HCL XR 75 MG CAP PO SCH (09:00)
[2016-11-15] MEDS: POLYETHYLENE GLYCOL 17 GM PKG PO SCH (09:00)
[2016-11-15] MEDS: SENNOSIDES 8.6 MG TAB PO SCH ×2 (09:00→19:58)
[2016-11-15] MEDS: INSULIN DETEMIR 100 UNITS/ML VIAL SQ SCH ×2 (09:00→19:58)
[2016-11-15] MEDS: ONDANSETRON HCL 4 MG/2 ML VIAL IVP PRN (09:27)
[2016-11-15] MEDS: ATORVASTATIN 20 MG TAB PO SCH (09:28)
[2016-11-15] MEDS: METOPROLOL TARTRATE 25 MG TAB PO SCH ×2 (09:29→20:42)
[2016-11-15] MEDS: PREGABALIN 75 MG CAP PO SCH ×2 (09:29→20:42)
[2016-11-15] MEDS: OLANZapine 10 MG TAB PO SCH (09:29)
[2016-11-15] MEDS: RIVAROXABAN 15 MG TAB PO SCH ×2 (09:29→20:42)
[2016-11-15] MEDS: TAMSULOSIN HCL 0.4 MG CAP PO SCH (09:29)
[2016-11-15] MEDS: ASPIRIN EC 81 MG TABEC PO SCH (09:29)
[2016-11-15] MEDS: LOSARTAN 50 MG TAB PO SCH (09:29)
[2016-11-15] MEDS: LEVOFLOXACIN 750 MG TAB PO SCH (09:30)
[2016-11-15] MEDS: MAGNESIUM OXIDE 400 MG TAB PO SCH (09:30)
[2016-11-15] MEDS: SODIUM CHLORIDE 0.9% FLUSH 5 ML FLUSH FLUSH SCH ×2 (09:30→20:42)
[2016-11-15] MEDS: CEFUROXIME AXETIL 250 MG TAB PO SCH ×2 (09:40→20:42)
--- NOTE | 2016-11-15 12:02 | HHI.PR ---
Subjective Remarks No acute events overnight. Afebrile, tachycardic to 121. Patient complains of back pain this morning that is out of proportion to his regular back pain. He has had 2 episodes of black diarrhea and one episode of emesis. He endorses nausea. Objective Vitals Vital Signs Date Time Temp Pulse Resp B/P Pulse Ox O2 Delivery O2 Flow Rate FiO2 11/15/16 08:00 99.2 121 22 143/78 94 11/15/16 04:00 96.6 119 20 149/81 95 11/15/16 00:00 96.7 110 18 140/78 94 11/14/16 20:00 97.1 113 18 156/85 94 11/14/16 19:34 95 21 11/14/16 16:00 97.2 108 20 134/86 95 11/14/16 12:18 92 Nasal Cannula 21 11/14/16 12:00 97.4 108 22 137/76 96 I/O 11/14/16 11/14/16 11/14/16 11/15/16 11/15/16 11/15/16 07:00 15:00 23:00 07:00 15:00 23:00 Intake Total 1450 ml 480 ml Balance 1450 ml 480 ml Intake Oral 850 ml 480 ml IV Total 600 ml # Voids 4 2 # Bowel Movements 1 Result Diagram: 11/15/1671311/15/16713 Objective Remarks GENERAL: 55-year-old male, NAD SKIN: Warm and dry. Papular rash on RUE HEAD: Atraumatic. Normocephalic. EYES: Pupils equal and round and reactive. No scleral icterus. No injection or drainage. ENT: No nasal bleeding or discharge. Mucous membranes pink and moist. NECK: Trachea midline. No JVD. CARDIOVASCULAR: Regular rate and rhythm. No m/r/g RESPIRATORY: CTAB GASTROINTESTINAL: Abdomen tense, mildly ttp, protuberant. Bowel sounds appreciated MUSCULOSKELETAL: Extremities with 1+ bilateral lower extremity pitting edema. No obvious deformities. NEUROLOGICAL: A&O to person and time. Not oriented to place. A/P Problem List: (1) Acute hypoxemic respiratory failure ICD Code: J96.01 Status: Acute (2) Bilateral pulmonary embolism ICD Code: I26.99 Status: Chronic (3) COPD exacerbation ICD Code: J44.1 Status: Acute (4) History of stroke ICD Code: Z86.73 Status: Chronic (5) Hyperlipidemia ICD Code: E78.5 Status: Chronic (6) DM2 (diabetes mellitus, type 2) ICD Code: E11.9 Status: Chronic (7) Pneumonia ICD Code: J18.9 Status: Acute (8) Aortic stenosis, mild ICD Code: I35.0 Status: Chronic (9) HTN (hypertension) ICD Code: I10 Status: Chronic (10) Mastoiditis ICD Code: H70.90 Status: Acute (11) Diarrhea ICD Code: R19.7 Status: Acute Assessment and Plan 55-year-old male with: 1. Pneumonia with acute respiratory failure requiring intubation. Patient successfully extubated 11/12. Stable on ra. Sputum cx positve for respiratory johnny x 2. Blood cx NG x 3 days. -Status post vancomycin, Zosyn, and cefepime. Continue Levaquin. - Duonebs QID and PRN 2. History of bilateral PE in August 2016. CTA negative on this admission. - Xarelto 15 mg BID 3. COPD Exacerbation - Antibiotics as above - Prednisone taper. Continue 20 mg daily 4. Ischemic heart disease, HTN, HLD - Resume losartan. Metoprolol 25 BID, 81 mg daily aspirin for abnormal Lexiscan below/and atorvastatin 20 mg daily for dyslipidemia. - Lexiscan revealed large fixed defects inferior lateral wall and apex. Intermediate 1-3% - ECHO with EF of 50-55%, 5. MIRNA. Resolved. 6. Type 2 DM - Continue Levemir to 45 units twice a day. Continue Accu-Chek with sliding scale insulin. 7. Sinusitis/Mastoiditis seen on CT - Status post Zosyn and cefepime. Patient transitioned to Levaquin and Ceftin. 8. Diarrhea. Patient reports black stools x 2. Currently with abd distension. - C Diff pending - Hemoccult pending - CT abd pending FEN: IV Fluids: HLIV Diet: 1800 ADA Electrolytes: Replete PRN Anticoag: Xarelto, SCDs GI prophylaxis: Not indicated Dispo: Patient will need rehab upon discharge. Patient seen and evaluated with resident under direct supervision, agree with assessment and plan. I attest that I had a [id number] encounter with the patient on the same day, and personally performed and documented my assessment and findings in the above note. Problem Qualifiers (1) Pneumonia: Qualified Code: J18.1 - Pneumonia of left lower lobe due to infectious organism Josefina Smith MD R3 Nov 15, 2016 12:02 Ajay Fowler MD Nov 15, 2016 14:26
[2016-11-15] MEDS ORDERED: DIATRIZOATE MEGLUM/DIATRIZOATE SOD 9 ML CUP PO ONE (13:15)
[2016-11-15] MEDS: DOCUSATE SODIUM 100 MG CAP PO SCH ×2 (14:17→19:59)
[2016-11-15] MEDS ORDERED: SODIUM CHLOR 0.9% 1000 ML INJ 1,000 ML IV ONE (14:45)
[2016-11-15 15:32] LABS: INDIRECT BILIRUBIN 0.3 MG/DL (0.0-0.8); TOTAL BILIRUBIN ADULT 0.4 MG/DL (0.2-1.0)
[2016-11-15] MEDS: SODIUM CHLOR 0.9% 1000 ML INJ 1,000 ML IV SCH ×2 (16:05→22:16)
[2016-11-15] MEDS ORDERED: IOHEXOL 350 MG/ML 10 ML VIAL (for RAD DIAG) IV ONE (16:47)
--- NOTE | 2016-11-15 16:58 | RADRPT ---
EXAM DATE/TIME: 11/15/2016 16:40 [facility] COMPARISON: No previous studies available for comparison. INDICATIONS : Diffuse abdominal pain with distension. IV CONTRAST: 96 cc Omnipaque 350 (iohexol) IV ORAL CONTRAST: Prescribed oral contrast ingested. RADIATION DOSE: 15.34 CTDIvol (mGy) MEDICAL HISTORY : Cerebrovascular disease. Cardiovascular disease Hypertension.Pulmonary Embolism; Diabetes SURGICAL HISTORY : None. ENCOUNTER: Initial ACUITY: 1 month PAIN SCALE: 7/10 LOCATION: Diffuse abdomen/pelvis TECHNIQUE: Volumetric scanning of the abdomen and pelvis was performed. Using automated exposure control and ad justment of the mA and/or kV according to patient size, radiation dose was kept as low as reasonably achievable to obtain optimal diagnostic quality images. FINDINGS: LOWER LUNGS: The visualized lower lungs are clear. LIVER: Homogeneous density without lesion. There is no dilation of the biliary tree. Small calcified gallst ones are noted. There is no evidence of gallbladder wall thickening or pericholecystic fluid. SPLEEN: Normal size without lesion. PANCREAS: Within normal limits. KIDNEYS: Normal in size and shape. There is no mass, stone or hydronephrosis. ADRENAL GLANDS: Within normal limits. VASCULAR: There is no aortic aneurysm. BOWEL/MESENTERY: Numerous diverticula seen throughout the descending and sigmoid colon. Moderate to large amount retai bonny stool is present throughout the colon. The stomach, small bowel, and colon demonstrate no acute a bnormality. There is no free intraperitoneal air or fluid. ABDOMINAL WALL: Within normal limits. RETROPERITONEUM: There is no lymphadenopathy. BLADDER: No wall thickening or mass. REPRODUCTIVE: Within normal limits. INGUINAL: There is no lymphadenopathy or hernia. MUSCULOSKELETAL: Within normal limits for patient age. CONCLUSION: Colonic diverticulosis without evidence of active inflammatory disease. Moderate to large amount retained stool. No evidence of obstruction, ileus, free air or abnormal fluid collections. Cholelithiasis. Yousif Van MD on November 15, 2016 at 16:52 Board Certified Radiologist. This report was verified electronically.
[2016-11-15 22:34] LABS: C. DIFF EPI 027 PRESUMPTIVE NEGATIVE (NEGATIVE); C. DIFF TOXIN PCR NEGATIVE (NEGATIVE)
[2016-11-15] MEDS: ACETAMINOPHEN 325 MG TAB PO PRN (23:22)
[2016-11-15 23:55] LABS: BLOOD GAS BASE EXCESS -3.2 mmol/L (-2-2); BLOOD GAS CARBOXYHEMOGLOBIN 1.8 % (0-4); BLOOD GAS HCO3 21 mmol/L (22-26); BLOOD GAS O2 HGB SATURATION 86 % (90-100); BLOOD GAS OXYGEN CONTENT 21.3 Vol % (12.0-20.0); BLOOD GAS PCO2 37 mmHg (38-42); BLOOD GAS PO2 59 mmHg (61-120); BLOOD GAS TOTAL HGB 17.6 G/DL (12.0-16.0); TEMP CORR TO 98.6
[2016-11-15 23:57] LABS: CRITICAL VALUE YES; DRAW SITE LT RADIAL; LITER FLOW 4 L/M; NUMBER OF ARTERIAL PUNCTURES 1; OXYGEN DEVICE NASAL CANNULA
[2016-11-15 23:58] LABS: STAT YES; ULNAR PULSE PRESENT
[2016-11-16] VITALS (11 sets, daily range): BP systolic 123–165; BP diastolic 68–84; PULSE 92–130; RESP 20–40; TEMP 98–102.1; O2SAT 86–99
--- NOTE | 2016-11-16 00:27 | RADRPT ---
EXAM DATE/TIME: 11/15/2016 23:57 [facility] COMPARISON: No previous studies available for comparison. INDICATIONS : Altered mental status. RADIATION DOSE: 39.45 CTDIvol (mGy) MEDICAL HISTORY : Cerebrovascular disease. SURGICAL HISTORY : None. ENCOUNTER: Initial ACUITY: 1 day PAIN SCALE: 0/10 LOCATION: cranial TECHNIQUE: Multiple contiguous axial images were obtained of the head. Using automated exposure control and adj ustment of the mA and/or kV according to patient size, radiation dose was kept as low as reasonably a chievable to obtain optimal diagnostic quality images. FINDINGS: CEREBRUM: The ventricles are normal for age. No evidence of midline shift, mass lesion, hemorrhage or acute in farction. No extra-axial fluid collections are seen. POSTERIOR FOSSA: The cerebellum and brainstem are intact. The 4th ventricle is midline. The cerebellopontine angle i s unremarkable. EXTRACRANIAL: The visualized portion of the orbits is intact. Fluid in both maxillary sinuses, worse on the right. SKULL: The calvaria is intact. No evidence of skull fracture. CONCLUSION: 1. No acute intracranial abnormalities. Bilateral maxillary and right sphenoid sinus disease. Moy Pederson MD on November 16, 2016 at 0:24 Board Certified Radiologist. This report was verified electronically.
[2016-11-16] MEDS: SODIUM CHLOR 0.9% 1000 ML INJ 1,000 ML IV SCH (05:30)
[2016-11-16] MEDS: METOPROLOL TARTRATE 25 MG TAB PO SCH ×2 (05:48→21:00)
[2016-11-16] MEDS: ACETAMINOPHEN 325 MG TAB PO PRN (05:48)
[2016-11-16] MEDS: RESP: ALBUTEROL 2.5 MG/IPRATROPIUM 0.5 MG NEB (PRN) NEB (05:56)
[2016-11-16] MEDS: INSULIN ASPART SUPPLEMENTAL SCALE SQ SCH ×3 (06:00→18:00)
[2016-11-16] MEDS ORDERED: METOPROLOL TARTRATE 25 MG TAB PO ONE (06:30)
[2016-11-16 06:50] LABS: AUTOMATED NEUTROPHIL # 11.3 TH/MM3 (1.8-7.7); BASOPHIL % 0.3 % (0.0-2.0); EOSINOPHIL # 0.3 TH/MM3 (0-0.4); HEMATOCRIT 36.2 % (39.0-51.0); HEMO FLAGS DIFF FINAL; LYMPH % 4.7 % (9.0-44.0); LYMPHOCYTE # 0.6 TH/MM3 (1.0-4.8); MEAN CELL VOLUME 89.4 FL (80.0-100.0); MEAN CORPUSCULAR HEMOGLOBIN 28.2 PG (27.0-34.0); MEAN CORPUSCULAR HGB CONC 31.5 % (32.0-36.0); MONO % 8.3 % (0.0-8.0); NEUT % 84.7 % (16.0-70.0); PLATELET COUNT 152 TH/MM3 (150-450); RED BLOOD COUNT 4.05 MIL/MM3 (4.50-5.90); RED CELL DISTRIBUTION WIDTH 14.7 % (11.6-17.2); WHITE BLOOD COUNT 13.3 TH/MM3 (4.0-11.0)
[2016-11-16] MEDS: RESP: ALBUTEROL 2.5 MG/IPRATROPIUM 0.5 MG NEB (SCH) NEB ×5 (06:54→23:22)
[2016-11-16 06:58] LABS: BLOOD GAS BASE EXCESS -4.2 mmol/L (-2-2); BLOOD GAS CARBOXYHEMOGLOBIN 1.8 % (0-4); BLOOD GAS HCO3 20 mmol/L (22-26); BLOOD GAS METHEMOGLOBIN 1.2 % (0-2); BLOOD GAS O2 HGB SATURATION 90 % (90-100); BLOOD GAS OXYGEN CONTENT 13.1 Vol % (12.0-20.0); BLOOD GAS PCO2 40 mmHg (38-42); BLOOD GAS PO2 80 mmHg (61-120); BLOOD GAS TOTAL HGB 10.3 G/DL (12.0-16.0); CRITICAL VALUE NO; DRAW SITE RT RADIAL; LITER FLOW 10 L/M; NUMBER OF ARTERIAL PUNCTURES 1; OXYGEN DEVICE SIMPLE MASK; STAT YES; ULNAR PULSE PRESENT
[2016-11-16] MEDS ORDERED: FUROSEMIDE 40 MG/4 ML VIAL ONE (06:58)
[2016-11-16 07:09] LABS: BICARBONATE 23.3 MEQ/L (21.0-32.0); POTASSIUM 4.2 MEQ/L (3.5-5.1)
--- NOTE | 2016-11-16 07:18 | HHI.FPPN ---
Addendum to progress note ADDENDUM Reason for addendum: Additonal documentation Additional information Residents called regarding [facility] on patient for respiratory distress. On arrival, informed that patient was on 2L all day yesterday, bumped to 4-5L overnight, and had desaturated to 89% on 5L. The patient has also been more lethargic and confused, CT head done yesterday negative for acute process. Patient does not provide much history and only responds in short sentences. Endorses pain of his stomach and waves all over it when asked to point where. Apparently has also been having diarrhea; C. diff negative and abdomen CT notable for large amount of stool and diverticulosis without inflammatory changes. Patient admitted for pulmonary edema on 10/30 and was transferred out of the unit on 11/12. He is currently on Ceftin and Levaquin for pneumonia. He is also on Xarelto for h/o PE. CTA during this admission negative. Vitals: BP 120s/60s HR 120s T 102.1 axillary SpO2 89% on 5L up to 95% on BiPAP GEN: Pale diaphoretic male sitting up in bed appearing restless. SKIN: Warm and diaphoretic. Large erythematous patches around right axilla and inguinal regions. HEENT: Pupils equal and round. BiPAP mask in place. HEART: Tachycardic and difficult to appreciate a murmur secondary to upper airway transmissions and crackles in lungs. PULM: Diffuse crackles over anterior lung staley. ABD: Soft, TTP throughout. EXTREM: L calf TTP without erythema, warmth, or edema and no palpable cords. R calf nontender. NEURO: Lethargic. A/P: Patient with respiratory distress, hypoxia, tachycardia, and fever. Differentials: sepsis, fluid overload, PE, pneumonia, COPD exacerbation - Stat CBC, BMP, and lactic acid - ABG with pH 7.34, pCO2 40, PO2 80, and bicarb 20 - No Cuellar in place but check U/A - Lasix 40 mg IV x 1 and stat CXR confirming some pulmonary edema - Consider broadening antibiotics to IV vancomycin and Zosyn - Consider CTA but patient currently on anticoagulation - Attending physician consulted and en route to see the patient. Would like to hold off on CTA for now Esthela Melgar MD Nov 16, 2016 07:17
[2016-11-16 07:32] LABS: BACTERIA, URINE RARE /hpf; BLOOD, URINE SMALL (NEG); COMMENT (UR) CULT NOT INDICATED; CULTURE IF INDICATED CULT NOT INDICATED; GLUCOSE,URINE NEG (NEG); HYALINE CAST, URINE 2 /lpf (RARE); KETONE, URINE TRACE mg/dL (NEG); MUCUS URINE FEW /lpf (OCC); NITRITE,URINE NEG (NEG); PH, URINE 5.5 (5.0-8.5); URINE COLOR YELLOW (YELLW/STRAW)
--- NOTE | 2016-11-16 07:40 | HHI.PR ---
Addendum to Inpatient Note Addendum Reason: Additional Documentation Additional Information Rapid response was called on this patient by patient's nurse because patient was saturating about 93% on 10 L nasal cannular. Currently, patient was also lethargic during the night. I had received several calls in this patient and was managing this patient throughout the night. Initially it was reported that patient was quite lethargic which was not his baseline. Therefore at that time, I have ordered for ABG to rule out CO2 retention and a stat head CT for any intracranial etiologies. These were personally reviews. ABG revealed hypoxemia on 4 L nasal cannula with no significant CO2 retention. Head CT was also essentially normal with no evidence of intracranial bleed/ infarct or mass effect. Therefore at that time, management was to continue with oxygen supplementation, antibiotics to continue. However apparent in the morning, patient was becoming more hypoxic and respite response was thus called. I came to see patient at the bedside immediately. Patient is known to me from his October 31, 2016 events. Patient presented similarly at that time with respiratory distress as well. Today morning though, on exam, patient is awake, alert, oriented. He is on simple mask at 10 L. Saturating 95%. There is no significant respiratory accessory muscle use. Patient also denies significant shortness of breath. His heart rate is regular, no murmur appreciated. Lung exam does reveal bilateral crepitations although exam is limited due to body habitus. Abdomen is soft and nontender. However at the palpation in suprapubic area, patient did have significant pain. Patient was also receiving IV fluids normal saline at 1 25 cc per hour which was started yesterday. On review of events that happened on October 31, 2016, patient also had exact same episode after getting IV fluids. He eventually required BiPAP administration and eventually was intubated about 4 days later. His echocardiogram did not reveal any significant diastolic or systolic dysfunction. Patient has history of bilateral pulmonary embolism although CT on admission showed resolution. He is on Xarelto. Impression: Acute hypoxemic respiratory failuresecondary to fluid overload Lethargyper nursing report. Patient actually is entirely awake alert and oriented. He is more of a chronically ill and having distress from urinary retention. Also suspect that he is becoming septic. He does have tactile fever. Possible urinary retention Hypertension Hyperlipidemia History of CVAwith left-sided residual weakness CADwith abnormal myocardial perfusion scanfixed defectwas evaluated by cardiology during this hospitalization Recent COPD exacerbation/fluid overloadrequiring mechanical ventilation History of bilateral pulmonary embolismwith negative CTA this admission. On anticoagulation with Xarelto. Diabeteswith neuropathy Plan: Lasix 40 mg IV stat given. Cuellar insertion. Chest x-ray stat ordered. Still pending at this point. Will review once imaging studies are up. Immediately after Cuellar was inserted, 200 cc of clear urine was draining. Will continue to monitor for the next few minutes to see the total. Stop IV fluids. Sepsis workupwith UA/blood cultures/chest x-ray. Would also start patient on consider starting patient on broad-spectrum antibiotics if his condition does not improve with treatment of the above fluid overload. At this point, he does have tactile fever although there is no documented fever. He does have tachycardia although this is likely secondary to respiratory distress rather than sepsis. His leukocytosis has been improving despite being on prednisone. We'll continue to monitor patient closely. We'll consider BiPAP administration if needed. Critical care time 30 minutes Emiliano Andersen MD Nov 16, 2016 07:40
[2016-11-16 07:41] LABS: BASOPHIL # 0.1 TH/MM3 (0-0.2); BASOPHIL % 0.8 % (0.0-2.0); EOSINOPHIL # 0.2 TH/MM3 (0-0.4); EOSINOPHIL % 1.8 % (0.0-4.0); HEMATOCRIT 32.6 % (39.0-51.0); HEMO FLAGS DIFF FINAL; LYMPH % 3.7 % (9.0-44.0); LYMPHOCYTE # 0.4 TH/MM3 (1.0-4.8); MEAN CELL VOLUME 88.5 FL (80.0-100.0); MEAN CORPUSCULAR HGB CONC 31.6 % (32.0-36.0); MONO % 8.5 % (0.0-8.0); NEUT % 85.2 % (16.0-70.0); PLATELET COUNT 141 TH/MM3 (150-450); RED BLOOD COUNT 3.69 MIL/MM3 (4.50-5.90); RED CELL DISTRIBUTION WIDTH 14.8 % (11.6-17.2); WHITE BLOOD COUNT 11.8 TH/MM3 (4.0-11.0)
--- NOTE | 2016-11-16 07:45 | RADRPT ---
EXAM DATE/TIME: 11/16/2016 06:58 [facility] COMPARISON: CHEST SINGLE AP, November 13, 2016, 10:13. INDICATIONS : Dyspnea. HALICAT. MEDICAL HISTORY : Hypercholesterolemia. Hypertension. Chronic obstructive pulmonary disease. CVA. Anticaogulant therapy . Pulmonary embolism. Diabetes. SURGICAL HISTORY : Left shoulder surgery. ENCOUNTER: Subsequent ACUITY: 1 week PAIN SCORE: Non-responsive. LOCATION: chest FINDINGS: The previously seen left lower lung atelectasis has resolved. There is prominence of the perivascular markings with crowding of the bronchovascular markings may be due to expiratory state of this radiog raph, however slight interstitial process is not excluded. Again noted are degenerative changes in th e shoulders, old right clavicular fracture and postsurgical changes involving the left clavicle. Hear t and mediastinum are unremarkable for technique. CONCLUSION: There is prominence of the perivascular markings with crowding of the bronchovascular markings may be due to expiratory state of this radiograph, however slight interstitial process is not excluded. Beatriz So MD on November 16, 2016 at 7:42 Board Certified Radiologist. This report was verified electronically.
[2016-11-16 08:06] LABS: ANION GAP 9 MEQ/L (5-15); AST (GOT) 25 U/L (15-37); BICARBONATE 24.2 MEQ/L (21.0-32.0); BLOOD UREA NITROGEN 30 MG/DL (7-18); CHLORIDE 111 MEQ/L (98-107); GLOMERULAR FILTRATION RATE 68 ML/MIN (>89); SODIUM (NA) 144 MEQ/L (136-145)
[2016-11-16 08:09] LABS: ALKALINE PHOSPHATASE 67 U/L (45-117); ALT (GPT) 44 U/L (12-78); TOTAL BILIRUBIN ADULT 0.7 MG/DL (0.2-1.0)
[2016-11-16] MEDS: TAMSULOSIN HCL 0.4 MG CAP PO SCH (09:00)
[2016-11-16] MEDS: POLYETHYLENE GLYCOL 17 GM PKG PO SCH (09:00)
[2016-11-16] MEDS: PANTOPRAZOLE SOD 40 MG DELAYED RELEASE TAB PO SCH (09:00)
[2016-11-16] MEDS: MAGNESIUM OXIDE 400 MG TAB PO SCH (09:00)
[2016-11-16] MEDS: LOSARTAN 50 MG TAB PO SCH (09:00)
--- NOTE | 2016-11-16 11:05 | HHI.PR ---
Subjective Remarks Rapid response called on the patient overnight for respiratory distress. He is lethargic but able to say he feels pretty bad. Nothing specific. Currently on 3 L nasal cannula. Objective Vitals Vital Signs Date Time Temp Pulse Resp B/P Pulse Ox O2 Delivery O2 Flow Rate FiO2 11/16/16 09:28 90 Nasal Cannula 3.00 11/16/16 08:00 100.4 111 22 137/73 93 11/16/16 06:38 102.1 120 26 123/68 89 11/16/16 05:40 100.7 130 20 165/75 93 11/16/16 01:26 95 Nasal Cannula 5.00 Humidified 11/16/16 00:30 94 Nasal Cannula 5.00 Humidified 11/15/16 23:09 100.5 109 17 136/77 93 11/15/16 21:00 93 Nasal Cannula 4.00 11/15/16 20:12 92 Nasal Cannula 2.00 11/15/16 20:00 98.5 120 20 125/68 95 11/15/16 16:00 99.9 130 24 121/69 92 11/15/16 12:00 100.1 125 20 112/79 93 I/O 11/15/16 11/15/16 11/15/16 11/16/16 11/16/16 11/16/16 07:00 15:00 23:00 07:00 15:00 23:00 Intake Total 480 ml 720 ml 2585 ml Output Total 800 ml Balance 480 ml 720 ml 1785 ml Intake Oral 480 ml 720 ml IV Total 2585 ml Output Urine Total 800 ml # Voids 2 3 2 1 # Bowel Movements 1 1 1 Result Diagram: 11/16/16 0732 11/16/16 0732 Imaging Last Impressions Chest X-Ray 11/16/16 0000 Signed Impressions: Service Date/Time: Wednesday, November 16, 2016 06:58 - CONCLUSION: There is prominence of the perivascular markings with crowding of the bronchovascular markings may be due to expiratory state of this radiograph, however slight interstitial process is not excluded. Beatriz So MD Head CT 11/15/16 0000 Signed Impressions: Service Date/Time: October 23:57 - CONCLUSION: 1. No acute intracranial abnormalities. Bilateral maxillary and right sphenoid sinus disease. Moy Pederson MD Abdomen/Pelvis CT 11/15/16 0000 Signed Impressions: Service Date/Time: October 16:40 - CONCLUSION: Colonic diverticulosis without evidence of active inflammatory disease. Moderate to large amount retained stool. No evidence of obstruction, ileus, free air or abnormal fluid collections. Cholelithiasis. Yousif Van MD Upper Extremity Ultrasound 11/10/16 0000 Signed Impressions: Service Date/Time: Thursday, November 10, 2016 13:28 - CONCLUSION: 1. Nonocclusive thrombus in the right internal jugular vein. 2. Occlusive thrombus in the left cephalic vein. Guerrero Johnston MD Lower Extremity Ultrasound 11/10/16 0000 Signed Impressions: Service Date/Time: Thursday, November 10, 2016 13:04 - CONCLUSION: No DVT. Guerrero Johnston MD Brain MRI 11/09/16 0000 Signed Impressions: Service Date/Time: Wednesday, November 09, 2016 09:48 - CONCLUSION: 1. No acute infarct or other acute intracranial abnormality. 2. Mild, nonspecific chronic white matter signal changes. 3. Pansinusitis and apparent bilateral mastoiditis. Guerrero Cummings MD Skull X-Ray 11/08/16 0000 Signed Impressions: Service Date/Time: October 16:26 - CONCLUSION: No MRI incompatible foreign body is identified. Guerrero Cummings MD Myocardial Perfusion Scan Nuc Med 11/02/16 0600 Signed Impressions: Service Date/Time: Wednesday, November 02, 2016 09:10 - CONCLUSION: 1. Large sized moderate severity fixed defect involving the inferolateral wall including the apex. Ischemia is not excluded. No wall motion abnormalities are identified RISK CATEGORY: Intermediate (1-3%% Annual Mortality Rate) Ben Aden MD CT Angiography 10/30/16 0000 Signed Impressions: Service Date/Time: Sunday, October 30, 2016 14:54 - CONCLUSION: The multiple pulmonary emboli seen in August have completely resolved. I don't see any residual emboli on today's exam. There is new airspace disease in the left upper lobe possible pneumonia. Garett Layton MD Abdomen X-Ray 10/30/16 0000 Signed Impressions: Service Date/Time: Sunday, October 30, 2016 14:47 - CONCLUSION: Normal examination. Bony prominence of the right pubic symphysis Garett Layton MD Objective Remarks GENERAL: Obese male, lethargic. CARDIOVASCULAR: Normal rate and regular rhythm without murmurs, gallops, or rubs. RESPIRATORY: Upper airway transmitted sounds. Coarse breath sounds bilaterally. No wheezing. GASTROINTESTINAL: Abdomen soft, mildly distended. Mild tenderness to palpation. MUSCULOSKELETAL: Extremities without cyanosis, or edema. NEURO: Lethargic. A/P Problem List: (1) Acute hypoxemic respiratory failure ICD Code: J96.01 Status: Acute (2) Bilateral pulmonary embolism ICD Code: I26.99 Status: Chronic (3) COPD exacerbation ICD Code: J44.1 Status: Acute (4) History of stroke ICD Code: Z86.73 Status: Chronic (5) Hyperlipidemia ICD Code: E78.5 Status: Chronic (6) DM2 (diabetes mellitus, type 2) ICD Code: E11.9 Status: Chronic (7) Pneumonia ICD Code: J18.9 Status: Acute (8) Aortic stenosis, mild ICD Code: I35.0 Status: Chronic (9) HTN (hypertension) ICD Code: I10 Status: Chronic (10) Mastoiditis ICD Code: H70.90 Status: Acute (11) Diarrhea ICD Code: R19.7 Status: Acute Assessment and Plan 55-year-old male with: Pneumonia with acute respiratory failure requiring intubation. Patient successfully extubated 11/12. Has been stable on room air but decompensated overnight. New Fevers. - Patient was previously on vancomycin, Zosyn, and cefepime. He was transitioned to oral Levaquin and Ceftin. However given the setback and probable HCA pneumonia, will resume vancomycin, cefepime, continue Levaquin. Consult ID and Pulmonology for assistance. - Duonebs QID and PRN sepsis secondary to pneumonia. See above. Continue antibiotics. Repeat blood cultures. Acute encephalopathy: Secondary to above. Head CT unremarkable except for Sinus disease. Hold sedative meds. History of bilateral PE in August 2016. CTA negative on this admission. - Xarelto 15 mg BID COPD Exacerbation - Antibiotics as above - Prednisone taper. Continue 20 mg daily - Appreciate Pulmonology input. Ischemic heart disease, HTN, HLD - Resume losartan. Metoprolol 25 BID, 81 mg daily aspirin for abnormal Lexiscan below/and atorvastatin 20 mg daily for dyslipidemia. - Lexiscan revealed large fixed defects inferior lateral wall and apex. Intermediate 1-3% - ECHO with EF of 50-55%, MIRNA. Resolved. Type 2 DM - Pat[place] had an episode of Hypoglycemia.Hold Levemir 45 units twice a day. Continue Accu-Chek with sliding scale insulin. Sinusitis/Mastoiditis seen on CT - On antibiotics as above. Diarrhea. - C Diff and Hemoccult neg. Abd CT shows Diverticulosis and retained stool. DVT PPx: Xarelto, SCDs GI prophylaxis: PPI Discharge Planning Transfer to the patient to ICU for closer monitoring due to change in status. Problem Qualifiers (1) Pneumonia: Qualified Code: J18.1 - Pneumonia of left lower lobe due to infectious organism Ajay Fowler MD Nov 16, 2016 11:05
[2016-11-16] MEDS ORDERED: VANCOMYCIN INJ 1,000 MG in SODIUM CHLOR 0.9% 250 ML INJ 250 ML IV SCH (11:15)
[2016-11-16] MEDS ORDERED: Vancomycin Consult Pharmacy 1 EA OTHER SCH (11:15)
[2016-11-16] MEDS: CEFEPIME INJ 2,000 MG in SODIUM CHLORIDE 0.9% INJ 100 ML IV SCH ×2 (13:47→22:29)
[2016-11-16] MEDS: HALOPERIDOL LACTATE 5 MG/ML AMP IV PUSH PRN (14:55)
[2016-11-16] MEDS: VANCOMYCIN INJ 1,500 MG in SODIUM CHLORID 0.9% 500 ML INJ 500 ML IV SCH (15:29)
[2016-11-16] MEDS ORDERED: ACETAMINOPHEN 650 MG SUPP RECTAL PRN (16:45)
[2016-11-16] MEDS: LEVOFLOXACIN 750 MG PREMIX INJ 150 ML IV SCH (17:59)
[2016-11-16] MEDS: HYDROmorphone HCL PF 1 MG/ML VIAL IV PUSH PRN ×2 (18:11→22:22)
--- NOTE | 2016-11-16 18:15 | MB ---
cc: VALENTÍN BAEZ MD DATE OF CONSULTATION: 11/16/2016. REASON FOR CONSULTATION: Sepsis, pneumonia, sinusitis, mastoiditis, status post intubation. REQUESTING PHYSICIAN: Dr. Fowler. HISTORY OF PRESENT ILLNESS: This is a 55-year-old white male who was admitted to the hospital on October 30. The patient presented to the emergency department with respiratory distress. He was sent from the [place] facility. The patient has been in the hospital and treated in the intensive care unit treatment. He was noted to have COPD exacerbation and pneumonia and he was also treated for mastoiditis and sinusitis. He was on IV Vancomycin and also Zithromax and then given Zosyn. The cultures taken since admission have been negative including blood, sputum and urine cultures. His latest sputum culture was on 11/15 and that has no growth. The patient was on the medical floor and deteriorated and was transferred to the intensive care unit. He developed respiratory distress with decreased saturation and was felt to be very lethargic. He was given diuresis and then transferred to the intensive care unit with the impression of acute hypoxemic respiratory failure secondary to fluid overload. He has been diuresed and has significant urine output. Currently he is on 15 liters partial 02 nonrebreather mask oxygen. He appears lethargic. He has a current temperature of 101.8 degrees. The prior temperatures earlier today were as high as 102.1 early this morning. White blood cell count early this morning was 11.8. His latest chest x-ray shows prominent perivascular markings and crowding of the bronchovascular markings. Previous chest x-ray revealed left base consolidation or atelectasis and prior to that the chest x-ray showed persistent consolidation of the left lower lobe and persistent fullness and opacity in the right perihilar region. Blood cultures were obtained today. Urinalysis today was unremarkable and therefore a culture was not performed. The patient is lethargic and therefore it is difficult to get much information from him. Information is obtained from the medical record. Earlier today the patient was on 3 liters nasal cannula. The patient was noted to have two episodes of black diarrhea and also one episode of emesis yesterday and he was also tachycardic. Currently he is tachycardic with heart rate of 122. PAST MEDICAL HISTORY: 1. Hypertension. 2. Diabetes mellitus. 3. Diabetic neuropathy. 4. Hyperlipidemia. 5. History of CVA with residual left-sided weakness. 6. Carpal tunnel syndrome. 7. Left rotator cuff and shoulder surgery. 8. Left hip surgery. 9. Left clavicle repair with plate and screws. ALLERGIES: NO KNOWN DRUG ALLERGIES. MEDICATIONS: 1. Vancomycin. 2. Cefepime. 3. Levaquin. 4. DuoNeb. 5. Cozaar. 6. Protonix. 7. MiraLax. 8. Senokot. 9. Insulin. 10. Haldol PRN. 11. Vasotec. 12. Magnesium oxide. 13. Oxycodone 5 milligrams PRN. SOCIAL HISTORY: No tobacco use. No alcohol. No illicit drugs. FAMILY HISTORY: Unable to obtain. REVIEW OF SYSTEMS: Unable to obtain. The patient is lethargic and he has 02 nonreb[address] mask in place. PHYSICAL EXAMINATION: GENERAL: This is a slender male who appears well-nourished. He is lethargic. VITAL SIGNS: The vital signs include a temperature of 101.8 degrees, blood pressure is 157/84, heart rate 122, respirations 20. HEAD, EYES, EARS, NOSE, THROAT: Head atraumatic. Extraocular movements appear grossly intact. No icterus. Oropharynx with no visible lesions. NECK: The neck is supple without adenopathy. LUNGS: Decreased breath sounds throughout with rhonchi at both bases. HEART: Normal S1 and S2. ABDOMEN: Bowel sounds diminished, soft, not tender. No palpable masses. RECTAL: Not performed. EXTREMITIES: No clubbing or cyanosis or edema. The patient has a geographic maculopapular erythematous rash at the right elbow and right humerus and also in an area of the left forearm and the posterior left elbow and he has excoriated lesions at the posterior distal right tibia and anterior left fibula. SKIN: No diffuse rash. PSYCHIATRIC: The patient is calm. LABORATORY DATA: WBCs 11.8, platelets 141,000, hemoglobin 10.3, 85% neutrophils. Creatinine 1.11, BUN 13, sodium 144. Liver function tests are normal. Stool is C. difficile negative. IMPRESSION: 1. Acute hypoxemic respiratory failure 2. Sepsis indicated by tachycardia, fever, leukocytosis, tachypnea. 3. Pneumonia likely aspiration versus HCAP. 4. Sinusitis based on CT scan involving bilateral maxillary and right sphenoid. 5. Skin rash, questionable etiology. It is not diffuse and does not look like drug-related skin rash. I am uncertain how long the skin rash has been present but nursing indicates that it may have been at least there for a few days. RECOMMENDATIONS: 1. Continue cefepime. 2. Continue Vancomycin. 3. Continue Levaquin. 4. Monitor blood cultures. 5. Monitor response to antibiotic treatment and antibiotic adjustments and the patient's clinical response of cultures. 6. Follow up on chest x-ray. 7. Monitor the skin rash daily. Thank you for this consultation. The patient's progress will be monitored and further recommendations will be given on followup if necessary. Valentín Baez MD FD/BERNABE /4:28 PM /5:57 PM KM
[2016-11-16 19:15] LABS: BLOOD GAS BASE EXCESS -1.6 mmol/L (-2-2); BLOOD GAS CARBOXYHEMOGLOBIN 1.9 % (0-4); BLOOD GAS HCO3 22 mmol/L (22-26); BLOOD GAS METHEMOGLOBIN 1.1 % (0-2); BLOOD GAS O2 HGB SATURATION 90 % (90-100); BLOOD GAS OXYGEN CONTENT 13.7 Vol % (12.0-20.0); BLOOD GAS PCO2 35 mmHg (38-42); BLOOD GAS PO2 60 mmHg (61-120); BLOOD GAS TOTAL HGB 10.8 G/DL (12.0-16.0); DRAW SITE RT RADIAL; NUMBER OF ARTERIAL PUNCTURES 1; STAT YES; TEMP CORR TO 98.6; ULNAR PULSE PRESENT
--- NOTE | 2016-11-16 20:05 | MB ---
cc: TODD BOYLE DATE OF CONSULTATION: 11/16/2016. REASON FOR CONSULTATION: . REQUESTING PHYSICIAN: Dr. Ajay Fowler. HISTORY OF PRESENT ILLNESS: Mr. Julio is a 55-year-old white male with a history of severe residual left-sided weakness. The patient was recently admitted in this hospital with COPD exacerbation and respiratory failure. He was intubated. He was successfully extubated and transferred to the floor. The patient was supposed to take thickened liquids. It was noted that he was drinking distilled water and milk, found today that he was getting more short of breath . He was transferred to the intensive care unit. He was desaturating and was put on a nonrebreather mask. He is saturating at 100% but when he takes the mask off, he desaturates. He denies any pain. He had a workup done. His CBC showed white blood cell count of 11.8, hemoglobin 10.3, hematocrit 32.3, MCV 88, platelet count 141,000. His sodium is 144, potassium 4.0, chloride 111, carbon dioxide 24, BUN 30, creatinine 1.11. His chest x-ray shows he has prominent perivascular markings and crowing and bronchovascular markings. PAST MEDICAL HISTORY: His past medical history is significant for: 1. History of CVA. 2. Diabetes mellitus. 3. COPD. 4. Carpal tunnel syndrome. 5. Left hip surgery. MEDICATIONS: He is currently takin. Solu-Medrol 40 milligrams q. 12 hours. 2. Levaquin IV. 3. Vancomycin IV. 4. Cefepime 2 grams q. 8 hours. 5. Albuterol and Atrovent nebulizer treatments. 6. Protonix 40 milligrams a day. 7. Xarelto 15 milligrams twice a day for the pulmonary embolism. 8. Ambien 5 milligrams at bedtime. 9. Flomax 0.4 milligrams. ALLERGIES: NO KNOWN DRUG ALLERGIES. SOCIAL HISTORY: The patient is single. He has one child. He lives by himself. 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 REVIEW OF SYSTEMS: The patient feels weak. He denies any headache or dizziness. He has history of stroke. No malignancies or pulmonary embolism. PHYSICAL EXAMINATION: GENERAL: The physical examination reveals a well-built, well-nourished male mild short of breath gets anxious and agitated. VITAL SIGNS: His blood pressure is 137/73, heart rate 111, respirations 20, temperature 100. HEAD, EYES, EARS, NOSE, THROAT: The pupils are equal and reactive. Oral mucosa and nasal mucosa normal. NECK: Supple. JVP not raised. CHEST: He has coarse crackles. CARDIOVASCULAR: S1-S2 normal. ABDOMEN: Benign. EXTREMITIES: He has a rash all over the body. IMPRESSION: 1. Respiratory insufficiency. 2. Possible aspiration. 3. COPD. 4. Pulmonary embolism. 5. Diabetes mellitus. 6. Skin rash. PLAN: 1. Will keep him on nonrebreather mask and keep his saturation greater than 92%. 2. Oral suction and NT suction as needed. 3. Continue aerosol treatment. 4. IV Solu-Medrol. 5. Keep him on nonrebreather mask and wean oxygen as tolerated. The patient is being followed by infectious disease. The patient is known to Dr. José Miguel Singleton who will follow this patient. MD TASIA Mcelroy/JCC /7:34 PM /7:52 PM KM
[2016-11-16] MEDS ORDERED: methylPREDNISolone SOD SUCC 40 MG/1 ML VIAL IV PUSH SCH (21:00)
[2016-11-16] MEDS: SENNOSIDES 8.6 MG TAB PO SCH (21:00)
[2016-11-16] MEDS: RIVAROXABAN 15 MG TAB PO SCH (21:00)
[2016-11-16] MEDS: SODIUM CHLORIDE 0.9% FLUSH 5 ML FLUSH FLUSH SCH (22:20)
[2016-11-17] VITALS (14 sets, daily range): BP systolic 136–159; BP diastolic 68–74; PULSE 95–129; RESP 20–25; TEMP 98.2–98.9; O2SAT 93–100
[2016-11-17] MEDS: HALOPERIDOL LACTATE 5 MG/ML AMP IV PUSH PRN (01:13)
[2016-11-17] MEDS: HYDROmorphone HCL PF 1 MG/ML VIAL IV PUSH PRN ×6 (02:25→21:45)
[2016-11-17] MEDS: RESP: ALBUTEROL 2.5 MG/IPRATROPIUM 0.5 MG NEB (SCH) NEB ×5 (02:37→20:00)
[2016-11-17] MEDS ORDERED: PHARMACY ORDERED LAB XX ONE (03:45)
[2016-11-17 05:12] LABS: HEMATOCRIT 31.9 % (39.0-51.0); MEAN CELL VOLUME 88.4 FL (80.0-100.0); MEAN CORPUSCULAR HEMOGLOBIN 29.2 PG (27.0-34.0); PLATELET COUNT 139 TH/MM3 (150-450); RED BLOOD COUNT 3.61 MIL/MM3 (4.50-5.90); RED CELL DISTRIBUTION WIDTH 14.7 % (11.6-17.2); REVIEW FLAG FINAL; WHITE BLOOD COUNT 9.2 TH/MM3 (4.0-11.0)
[2016-11-17] MEDS: CEFEPIME INJ 2,000 MG in SODIUM CHLORIDE 0.9% INJ 100 ML IV SCH ×3 (05:14→20:18)
[2016-11-17 05:44] LABS: BICARBONATE 21.6 MEQ/L (21.0-32.0); POTASSIUM 4.4 MEQ/L (3.5-5.1)
[2016-11-17] MEDS: INSULIN ASPART SUPPLEMENTAL SCALE SQ SCH ×5 (06:00→23:19)
[2016-11-17] MEDS: VANCOMYCIN INJ 1,500 MG in SODIUM CHLORID 0.9% 500 ML INJ 500 ML IV SCH (08:00)
[2016-11-17] MEDS: TAMSULOSIN HCL 0.4 MG CAP PO SCH (09:00)
[2016-11-17] MEDS: LOSARTAN 50 MG TAB PO SCH (09:00)
[2016-11-17] MEDS: MAGNESIUM OXIDE 400 MG TAB PO SCH (09:00)
[2016-11-17] MEDS: SENNOSIDES 8.6 MG TAB PO SCH ×2 (09:00→20:18)
[2016-11-17] MEDS: PANTOPRAZOLE SOD 40 MG DELAYED RELEASE TAB PO SCH (09:00)
[2016-11-17] MEDS: POLYETHYLENE GLYCOL 17 GM PKG PO SCH (09:00)
--- NOTE | 2016-11-17 09:19 | RADRPT ---
EXAM DATE/TIME: 11/17/2016 08:56 [facility] COMPARISON: CHEST SINGLE AP, November 16, 2016, 6:58. INDICATIONS : Short of breath MEDICAL HISTORY : Hypercholesterolemia. Hypertension. Chronic obstructive pulmonary disease. CVA. Anticaogulant therapy . Pulmonary embolism. Diabetes SURGICAL HISTORY : Left shoulder surgery. ENCOUNTER: Subsequent ACUITY: 1 week PAIN SCORE: Non-responsive. LOCATION: Bilateral chest FINDINGS: There appears to be improved aeration of the lungs compared to the prior study. There is a mild infil trate in the left costophrenic angle suggestive of atelectasis. Otherwise, no other new or focal infi ltrates are demonstrated. The heart size is stable. There no pleural effusions. The bony structures a re stable. CONCLUSION: 1. Improved aeration lung staley compared to the prior exam. 2. Mild left lower lung atelectasis. Julián Perez MD on November 17, 2016 at 9:17 Board Certified Radiologist. This report was verified electronically.
--- NOTE | 2016-11-17 10:06 | HHI.PR ---
Subjective Remarks Better today. On nasal canula. C/O thirst. Has been having very thick green sputum with cough. Objective Vitals Vital Signs Date Time Temp Pulse Resp B/P Pulse Ox O2 Delivery O2 Flow Rate FiO2 11/17/16 08:21 98 Partial Rebreather 12.00 11/17/16 08:00 105 11/17/16 08:00 98.2 105 25 159/74 100 11/17/16 07:00 Partial Non-Rebreather 11/17/16 06:56 18 11/17/16 06:00 95 11/17/16 04:00 104 11/17/16 02:00 110 11/17/16 00:00 98.8 123 24 147/69 96 11/17/16 00:00 123 11/16/16 23:30 99 Nasal Cannula 4.00 Humidified 11/16/16 22:00 113 11/16/16 20:00 98.1 107 29 157/69 99 11/16/16 20:00 107 11/16/16 20:00 98 Partial Rebreather 15.00 11/16/16 19:00 100 Partial Non-Rebreather 11/16/16 18:00 124 11/16/16 16:00 101.1 123 35 157/84 99 11/16/16 16:00 123 11/16/16 14:00 130 11/16/16 12:00 101.8 129 40 145/77 86 11/16/16 12:00 129 I/O 11/16/16 11/16/16 11/16/16 11/17/16 11/17/16 11/17/16 07:00 15:00 23:00 07:00 15:00 23:00 Intake Total 2585 ml 100 ml 667 ml Output Total 800 ml 1825 ml 600 ml 650 ml Balance 1785 ml -1725 ml 67 ml -650 ml IV Total 2585 ml 100 ml 667 ml Output Urine Total 800 ml 1825 ml 600 ml 650 ml # Voids 1 # Bowel Movements 1 5 Result Diagram: 11/17/1642011/17/16420 Objective Remarks GENERAL: Obese male, no acute distress. CARDIOVASCULAR: Normal rate and regular rhythm without murmurs, gallops, or rubs. SKIN: Macular rash over bilateral arms. RESPIRATORY: Upper airway transmitted sounds. Coarse breath sounds bilaterally. No wheezing. GASTROINTESTINAL: Abdomen soft, mildly distended. Mild tenderness to palpation. MUSCULOSKELETAL: Extremities without cyanosis, or edema. NEURO: Awake and alert. Moves all extremities. A/P Problem List: (1) Acute hypoxemic respiratory failure ICD Code: J96.01 Status: Acute (2) Bilateral pulmonary embolism ICD Code: I26.99 Status: Chronic (3) COPD exacerbation ICD Code: J44.1 Status: Acute (4) History of stroke ICD Code: Z86.73 Status: Chronic (5) Hyperlipidemia ICD Code: E78.5 Status: Chronic (6) DM2 (diabetes mellitus, type 2) ICD Code: E11.9 Status: Chronic (7) Pneumonia ICD Code: J18.9 Status: Acute (8) Aortic stenosis, mild ICD Code: I35.0 Status: Chronic (9) HTN (hypertension) ICD Code: I10 Status: Chronic (10) Mastoiditis ICD Code: H70.90 Status: Acute (11) Diarrhea ICD Code: R19.7 Status: Acute Assessment and Plan 55-year-old male with: Pneumonia with acute respiratory failure requiring intubation. Patient successfully extubated 11/12. Has been stable on room air but decompensated on . New Fevers. - Improved today. Infectious disease following. Currently on vancomycin, cefepime, continue Levaquin. - Appreciate pulmonology following. - Duonebs QID and PRN - Repeat sputum culture sepsis secondary to pneumonia. See above. Continue antibiotics. Repeat blood cultures pending. Acute encephalopathy: Resolving. Secondary to above. Head CT unremarkable except for Sinus disease. Continue to hold sedative meds. - Speech for swallow eval today. History of bilateral PE in August 2016. CTA negative on this admission. - Xarelto 15 mg BID COPD Exacerbation - Antibiotics as above -Continue Solu-Medrol - Appreciate Pulmonology input. Ischemic heart disease, HTN, HLD - Resume losartan. Metoprolol 25 BID, 81 mg daily aspirin for abnormal Lexiscan below/and atorvastatin 20 mg daily for dyslipidemia. - Lexiscan revealed large fixed defects inferior lateral wall and apex. Intermediate 1-3% - ECHO with EF of 50-55%, MIRNA. Resolved. Type 2 DM - Patient had an episode of Hypoglycemia.resume Levemir at a lower dose. Continue Accu-Chek with sliding scale insulin. Sinusitis/Mastoiditis seen on CT - On antibiotics as above. Diarrhea. - C Diff and Hemoccult neg. Abd CT shows Diverticulosis and retained stool. DVT PPx: Xarelto, SCDs GI prophylaxis: PPI Discharge Planning Keep in ICU today. If continue to improve consider transfer back to floor. Problem Qualifiers (1) Pneumonia: Qualified Code: J18.1 - Pneumonia of left lower lobe due to infectious organism Ajay Fowler MD Nov 17, 2016 10:06
--- NOTE | 2016-11-17 13:54 | HHI.IDPN ---
Subjective Subjective Remarks Notes reviewed No fever On nasal O2 Has hoarseness Rash present, patient denies any itching or any sensitivity No previous allergies that he knows off Not short of breath Antibiotics Cefepime Levaquin Vancomycin Past Medical History 1. Hypertension. 2. Diabetes mellitus. 3. Diabetic neuropathy. 4. Hyperlipidemia. 5. History of CVA with residual left-sided weakness. 6. Carpal tunnel syndrome. 7. Left rotator cuff and shoulder surgery. 8. Left hip surgery. 9. Left clavicle repair with plate and screws. Allergies: Coded Allergies: No Known Allergies (Unverified , 10/30/16) Objective . Vital Signs Date Time Temp Pulse Resp B/P Pulse Ox O2 Delivery O2 Flow Rate FiO2 11/17/16 12:00 98.4 129 20 136/68 95 11/17/16 12:00 105 11/17/16 10:26 16 11/17/16 10:00 105 11/17/16 08:21 98 Partial Rebreather 12.00 11/17/16 08:00 105 11/17/16 08:00 98.2 105 25 159/74 100 11/17/16 07:00 Partial Non-Rebreather 11/17/16 06:00 95 11/17/16 04:00 104 11/17/16 02:00 110 11/17/16 00:00 98.8 123 24 147/69 96 11/17/16 00:00 123 11/16/16 23:30 99 Nasal Cannula 4.00 Humidified 11/16/16 22:00 113 11/16/16 20:00 98.1 107 29 157/69 99 11/16/16 20:00 107 11/16/16 20:00 98 Partial Rebreather 15.00 11/16/16 19:00 100 Partial Non-Rebreather 11/16/16 18:00 124 11/16/16 16:00 101.1 123 35 157/84 99 11/16/16 16:00 123 11/16/16 14:00 130 11/16/16 11/16/16 11/17/16 15:00 23:00 07:00 Intake Total 100 ml 667 ml Output Total 1825 ml 600 ml 650 ml Balance -1725 ml 67 ml -650 ml IV Total 100 ml 667 ml Output Urine Total 1825 ml 600 ml 650 ml # Bowel Movements 1 5 . Laboratory Tests Test 11/16/16 11/16/16 11/17/16 05:54 07:32 04:21 White Blood Count 13.3 TH/MM3 11.8 TH/MM3 9.2 TH/MM3 Red Blood Count 4.05 MIL/MM3 3.69 MIL/MM3 3.61 MIL/MM3 Hemoglobin 11.4 GM/DL 10.3 GM/DL 10.5 GM/DL Hematocrit 36.2 % 32.6 % 31.9 % Mean Corpuscular Volume 89.4 FL 88.5 FL 88.4 FL Mean Corpuscular Hemoglobin 28.2 PG 28.0 PG 29.2 PG Mean Corpuscular Hemoglobin 31.5 % 31.6 % 33.0 % Concent Red Cell Distribution Width 14.7 % 14.8 % 14.7 % Platelet Count 152 TH/MM3 141 TH/MM3 139 TH/MM3 Mean Platelet Volume 11.3 FL 10.6 FL 10.6 FL Neutrophils (%) (Auto) 84.7 % 85.2 % Lymphocytes (%) (Auto) 4.7 % 3.7 % Monocytes (%) (Auto) 8.3 % 8.5 % Eosinophils (%) (Auto) 2.0 % 1.8 % Basophils (%) (Auto) 0.3 % 0.8 % Neutrophils # (Auto) 11.3 TH/MM3 10.0 TH/MM3 Lymphocytes # (Auto) 0.6 TH/MM3 0.4 TH/MM3 Monocytes # (Auto) 1.1 TH/MM3 1.0 TH/MM3 Eosinophils # (Auto) 0.3 TH/MM3 0.2 TH/MM3 Basophils # (Auto) 0.0 TH/MM3 0.1 TH/MM3 CBC Comment DIFF FINAL DIFF FINAL Differential Comment Laboratory Tests Test 11/16/16 11/16/16 11/17/16 05:54 07:32 04:21 Sodium Level 143 MEQ/L 144 MEQ/L 143 MEQ/L Potassium Level 4.2 MEQ/L 4.0 MEQ/L 4.4 MEQ/L Chloride Level 110 MEQ/L 111 MEQ/L 107 MEQ/L Carbon Dioxide Level 23.3 MEQ/L 24.2 MEQ/L 21.6 MEQ/L Anion Gap 10 MEQ/L 9 MEQ/L 14 MEQ/L Blood Urea Nitrogen 29 MG/DL 30 MG/DL 27 MG/DL Creatinine 1.01 MG/DL 1.11 MG/DL 0.90 MG/DL Estimat Glomerular Filtration 76 ML/MIN 68 ML/MIN 87 ML/MIN Rate Random Glucose 120 MG/DL 134 MG/DL 282 MG/DL Calcium Level 8.6 MG/DL 8.0 MG/DL 8.4 MG/DL Lactic Acid Level 1.0 mmol/L Total Bilirubin 0.7 MG/DL Aspartate Amino Transf 25 U/L (AST/SGOT) Alanine Aminotransferase 44 U/L (ALT/SGPT) Alkaline Phosphatase 67 U/L B-Type Natriuretic Peptide 94 PG/ML Total Protein 6.0 GM/DL Albumin 2.4 GM/DL Microbiology Date/Time Procedure Status Source Growth 11/15/16 20:20 Stool Occult Blood (GUANACO) - Final Complete Stool Stool HEMOCCULT NEGATIVE 11/15/16 21:30 Gram Stain - Final Complete Sputum Endotracheal 11/15/16 21:30 Sputum Culture - Final Complete Sputum Endotracheal HEAVY GROWTH NORMAL RESPIRATORY JOSE 11/16/16 10:40 Aerobic Blood Culture - Preliminary Resulted Blood Peripheral NO GROWTH IN 1 DAY 11/16/16 10:40 Anaerobic Blood Culture - Preliminary Resulted Blood Peripheral NO GROWTH IN 1 DAY 11/16/16 10:50 Aerobic Blood Culture - Preliminary Resulted Blood Peripheral NO GROWTH IN 1 DAY 11/16/16 10:50 Anaerobic Blood Culture - Preliminary Resulted Blood Peripheral NO GROWTH IN 1 DAY Imaging Last Impressions Chest X-Ray 11/17/16 0000 Signed Impressions: Service Date/Time: Thursday, November 17, 2016 08:56 - CONCLUSION: 1. Improved aeration lung staley compared to the prior exam. 2. Mild left lower lung atelectasis. Julián Perez MD Head CT 11/15/16 0000 Signed Impressions: Service Date/Time: October 23:57 - CONCLUSION: 1. No acute intracranial abnormalities. Bilateral maxillary and right sphenoid sinus disease. Moy Pederson MD Abdomen/Pelvis CT 11/15/16 0000 Signed Impressions: Service Date/Time: October 16:40 - CONCLUSION: Colonic diverticulosis without evidence of active inflammatory disease. Moderate to large amount retained stool. No evidence of obstruction, ileus, free air or abnormal fluid collections. Cholelithiasis. Yousif Van MD Upper Extremity Ultrasound 11/10/16 0000 Signed Impressions: Service Date/Time: Thursday, November 10, 2016 13:28 - CONCLUSION: 1. Nonocclusive thrombus in the right internal jugular vein. 2. Occlusive thrombus in the left cephalic vein. Guerrero Johnston MD Lower Extremity Ultrasound 11/10/16 0000 Signed Impressions: Service Date/Time: Thursday, November 10, 2016 13:04 - CONCLUSION: No DVT. Guerrero Johnston MD Brain MRI 11/09/16 0000 Signed Impressions: Service Date/Time: Wednesday, November 09, 2016 09:48 - CONCLUSION: 1. No acute infarct or other acute intracranial abnormality. 2. Mild, nonspecific chronic white matter signal changes. 3. Pansinusitis and apparent bilateral mastoiditis. Guerrero Cummings MD Skull X-Ray 11/08/16 0000 Signed Impressions: Service Date/Time: October 16:26 - CONCLUSION: No MRI incompatible foreign body is identified. Guerrero Cummings MD Myocardial Perfusion Scan Nuc Med 11/02/16 0600 Signed Impressions: Service Date/Time: Wednesday, November 02, 2016 09:10 - CONCLUSION: 1. Large sized moderate severity fixed defect involving the inferolateral wall including the apex. Ischemia is not excluded. No wall motion abnormalities are identified RISK CATEGORY: Intermediate (1-3%% Annual Mortality Rate) Ben Aden MD CT Angiography 10/30/16 0000 Signed Impressions: Service Date/Time: Sunday, October 30, 2016 14:54 - CONCLUSION: The multiple pulmonary emboli seen in August have completely resolved. I don't see any residual emboli on today's exam. There is new airspace disease in the left upper lobe possible pneumonia. Garett Layton MD Abdomen X-Ray 10/30/16 0000 Signed Impressions: Service Date/Time: Sunday, October 30, 2016 14:47 - CONCLUSION: Normal examination. Bony prominence of the right pubic symphysis Garett Layton MD Physical Exam GENERAL: Awake and alert, not in respiratory distress. SKIN: Has red large macules in his R upper arm, R axilla and R back, smaller area in his L axilla, and in his L back, somewhat dry HEENT: [place] conjunctivae, pupils equal and reactive to light. EOMs full and intact. No icterus. Dry role mucosa, with dry ulcers on his lips and on the tip of his tongue. NECK: The neck is supple without adenopathy. LUNGS: Decreased breath sounds throughout with rhonchi at both bases. HEART: Normal S1 and S2. No murmur ABDOMEN: Bowel sounds diminished, soft, not tender. No palpable masses. EXTREMITIES: No clubbing or cyanosis or edema. PSYCHIATRIC: The patient is calm. Cooperative NEURO: Grossly nonfocal LINE: No evidence of infection Assessment & Plan Remarks IMPRESSION: Acute hypoxemic respiratory failure Sepsis indicated by tachycardia, fever, leukocytosis, tachypnea. Pneumonia likely aspiration versus HCAP. Sinusitis based on CT scan involving bilateral maxillary and right sphenoid. Skin rash, questionable etiology. RECOMMENDATIONS: Continue cefepime. Continue Vancomycin. Continue Levaquin. Follow cultures Monitor progress Will monitor the skin rash Discussed with Lakisha Clifford MD Nov 17, 2016 13:54
[2016-11-17] MEDS: LEVOFLOXACIN 750 MG PREMIX INJ 150 ML IV SCH (18:55)
[2016-11-17] MEDS: METOPROLOL TARTRATE 25 MG TAB PO SCH (20:16)
[2016-11-17] MEDS: SODIUM CHLORIDE 0.9% FLUSH 5 ML FLUSH FLUSH SCH (20:16)
[2016-11-17] MEDS: RIVAROXABAN 15 MG TAB PO SCH (20:17)
[2016-11-17] MEDS: INSULIN DETEMIR 100 UNITS/ML VIAL SQ SCH (20:18)
[2016-11-18] VITALS (12 sets, daily range): BP systolic 105–166; BP diastolic 60–89; PULSE 87–109; RESP 20–30; TEMP 98.3–100.7; O2SAT 93–97
[2016-11-18] MEDS: VANCOMYCIN INJ 1,500 MG in SODIUM CHLORID 0.9% 500 ML INJ 500 ML IV SCH (01:24)
[2016-11-18] MEDS: HYDROmorphone HCL PF 1 MG/ML VIAL IV PUSH PRN ×2 (01:25→05:15)
[2016-11-18] MEDS: CEFEPIME INJ 2,000 MG in SODIUM CHLORIDE 0.9% INJ 100 ML IV SCH ×3 (03:19→19:28)
[2016-11-18] MEDS: INSULIN ASPART SUPPLEMENTAL SCALE SQ SCH ×4 (05:12→23:37)
[2016-11-18 06:47] LABS: HEMATOCRIT 31.1 % (39.0-51.0); MEAN CORPUSCULAR HEMOGLOBIN 29.2 PG (27.0-34.0); MEAN CORPUSCULAR HGB CONC 33.6 % (32.0-36.0); PLATELET COUNT 193 TH/MM3 (150-450); RED BLOOD COUNT 3.58 MIL/MM3 (4.50-5.90); RED CELL DISTRIBUTION WIDTH 14.8 % (11.6-17.2); REVIEW FLAG FINAL; WHITE BLOOD COUNT 7.3 TH/MM3 (4.0-11.0)
[2016-11-18 07:23] LABS: BICARBONATE 25.6 MEQ/L (21.0-32.0); POTASSIUM 4.1 MEQ/L (3.5-5.1)
--- NOTE | 2016-11-18 08:48 | HHI.PR ---
Subjective Remarks Patient seen in follow up for respiratory failure, sepsis secondary to pneumonia , ?Aspiration and multiple comorbid conditions listed under A/P Feeling better today. Wants to get out of bed. Wants to eat. Stable on nasal canula. Objective Vitals Vital Signs Date Time Temp Pulse Resp B/P Pulse Ox O2 Delivery O2 Flow Rate FiO2 11/18/16 06:00 87 11/18/16 04:00 95 11/18/16 04:00 99.0 95 20 150/72 94 11/18/16 02:00 102 11/18/16 00:00 98.4 96 24 129/70 94 11/18/16 00:00 96 11/17/16 22:00 97 11/17/16 20:10 97 Nasal Cannula 4.00 11/17/16 20:00 98.9 109 24 141/68 93 11/17/16 20:00 109 11/17/16 19:08 16 11/17/16 19:00 93 Nasal Cannula 4.00 Humidified 11/17/16 18:00 105 11/17/16 16:00 105 11/17/16 16:00 98.5 112 20 142/70 98 11/17/16 14:00 105 11/17/16 13:17 12 11/17/16 12:00 98.4 129 20 136/68 95 11/17/16 12:00 105 11/17/16 10:00 105 I/O 11/17/16 11/17/16 11/17/16 11/18/16 11/18/16 11/18/16 07:00 15:00 23:00 07:00 15:00 23:00 Intake Total 772 ml 188 ml 522 ml Output Total 650 ml 1100 ml 550 ml 600 ml Balance -650 ml -328 ml -362 ml -78 ml Intake Oral 560 ml 400 ml IV Total 212 ml 188 ml 122 ml Output Urine Total 650 ml 1100 ml 550 ml 600 ml # Bowel Movements 5 7 Result Diagram: 11/18/1650 11/18/16 0550 Objective Remarks GENERAL: Obese male, no acute distress. CARDIOVASCULAR: Normal rate and regular rhythm without murmurs, gallops, or rubs. SKIN: Macular rash over bilateral arms. RESPIRATORY: Upper airway transmitted sounds. Coarse breath sounds bilaterally. No wheezing. GASTROINTESTINAL: Abdomen soft, mildly distended. Mild tenderness to palpation. MUSCULOSKELETAL: Extremities without cyanosis, or edema. NEURO: Awake and alert. Moves all extremities. A/P Problem List: (1) Acute hypoxemic respiratory failure ICD Code: J96.01 Status: Acute (2) Bilateral pulmonary embolism ICD Code: I26.99 Status: Chronic (3) COPD exacerbation ICD Code: J44.1 Status: Acute (4) History of stroke ICD Code: Z86.73 Status: Chronic (5) Hyperlipidemia ICD Code: E78.5 Status: Chronic (6) DM2 (diabetes mellitus, type 2) ICD Code: E11.9 Status: Chronic (7) Pneumonia ICD Code: J18.9 Status: Acute (8) Aortic stenosis, mild ICD Code: I35.0 Status: Chronic (9) HTN (hypertension) ICD Code: I10 Status: Chronic (10) Mastoiditis ICD Code: H70.90 Status: Acute (11) Diarrhea ICD Code: R19.7 Status: Acute Assessment and Plan 55-year-old male with: Pneumonia with acute respiratory failure requiring intubation. Patient successfully extubated 11/12. Has been stable on room air but decompensated on . New Fevers. - Improving. Infectious disease following. Currently on vancomycin, cefepime, continue Levaquin. - Appreciate pulmonology following. - Duonebs QID and PRN - Repeat sputum culture pending sepsis secondary to pneumonia. See above. Continue antibiotics. Repeat blood cultures so far negative. Acute encephalopathy: Resolving. Secondary to above. Head CT unremarkable except for Sinus disease. Continue to hold sedative meds. Dysphagia: Speech therapy following. Full liquid diet with honey thickened History of bilateral PE in August 2016. CTA negative on this admission. - Xarelto 15 mg BID COPD Exacerbation - Antibiotics as above - Continue Solu-Medrol - Appreciate Pulmonology input. Ischemic heart disease, HTN, HLD - Resume losartan. Metoprolol 25 BID, 81 mg daily aspirin for abnormal Lexiscan below/and atorvastatin 20 mg daily for dyslipidemia. - Lexiscan revealed large fixed defects inferior lateral wall and apex. Intermediate 1-3% - ECHO with EF of 50-55%, MIRNA. Resolved. Type 2 DM - Patient had an episode of Hypoglycemia. Levemir at a lower dose. Will need to adjust as he start to eat more. Continue Accu-Chek with sliding scale insulin. Sinusitis/Mastoiditis seen on CT - On antibiotics as above. Diarrhea. - C Diff and Hemoccult neg. Abd CT shows Diverticulosis and retained stool. DVT PPx: Xarelto, SCDs GI prophylaxis: PPI Discharge Planning Ok to transfer to floor today Problem Qualifiers (1) Pneumonia: Qualified Code: J18.1 - Pneumonia of left lower lobe due to infectious organism Ajay Fowler MD Nov 18, 2016 08:48
[2016-11-18] MEDS: RESP: ALBUTEROL 2.5 MG/IPRATROPIUM 0.5 MG NEB (SCH) NEB ×4 (08:53→20:05)
--- NOTE | 2016-11-18 08:59 | HHI.IDPN ---
Subjective Subjective Remarks Notes reviewed D/W No fever On nasal O2 Has hoarseness Rash present, patient denies any itching or any sensitivity, better Not short of breath Nothing new on C/S Last CXR better Antibiotics Cefepime Levaquin Vancomycin Past Medical History 1. Hypertension. 2. Diabetes mellitus. 3. Diabetic neuropathy. 4. Hyperlipidemia. 5. History of CVA with residual left-sided weakness. 6. Carpal tunnel syndrome. 7. Left rotator cuff and shoulder surgery. 8. Left hip surgery. 9. Left clavicle repair with plate and screws. Allergies: Coded Allergies: No Known Allergies (Unverified , 10/30/16) Objective . Vital Signs Date Time Temp Pulse Resp B/P Pulse Ox O2 Delivery O2 Flow Rate FiO2 11/18/16 06:00 87 11/18/16 04:00 95 11/18/16 04:00 99.0 95 20 150/72 94 11/18/16 02:00 102 11/18/16 00:00 98.4 96 24 129/70 94 11/18/16 00:00 96 11/17/16 22:00 97 11/17/16 20:10 97 Nasal Cannula 4.00 11/17/16 20:00 98.9 109 24 141/68 93 11/17/16 20:00 109 11/17/16 19:08 16 11/17/16 19:00 93 Nasal Cannula 4.00 Humidified 11/17/16 18:00 105 11/17/16 16:00 105 11/17/16 16:00 98.5 112 20 142/70 98 11/17/16 14:00 105 11/17/16 13:17 12 11/17/16 12:00 98.4 129 20 136/68 95 11/17/16 12:00 105 11/17/16 10:00 105 11/17/16 11/17/16 11/18/16 15:00 23:00 07:00 Intake Total 772 ml 188 ml 522 ml Output Total 1100 ml 550 ml 600 ml Balance -328 ml -362 ml -78 ml Intake Oral 560 ml 400 ml IV Total 212 ml 188 ml 122 ml Output Urine Total 1100 ml 550 ml 600 ml # Bowel Movements 7 . Laboratory Tests Test 11/17/16 11/18/16 04:21 05:50 White Blood Count 9.2 TH/MM3 7.3 TH/MM3 Red Blood Count 3.61 MIL/MM3 3.58 MIL/MM3 Hemoglobin 10.5 GM/DL 10.5 GM/DL Hematocrit 31.9 % 31.1 % Mean Corpuscular Volume 88.4 FL 87.0 FL Mean Corpuscular Hemoglobin 29.2 PG 29.2 PG Mean Corpuscular Hemoglobin 33.0 % 33.6 % Concent Red Cell Distribution Width 14.7 % 14.8 % Platelet Count 139 TH/MM3 193 TH/MM3 Mean Platelet Volume 10.6 FL 10.0 FL Laboratory Tests Test 11/17/16 11/18/16 04:21 05:50 Sodium Level 143 MEQ/L 144 MEQ/L Potassium Level 4.4 MEQ/L 4.1 MEQ/L Chloride Level 107 MEQ/L 109 MEQ/L Carbon Dioxide Level 21.6 MEQ/L 25.6 MEQ/L Anion Gap 14 MEQ/L 9 MEQ/L Blood Urea Nitrogen 27 MG/DL 25 MG/DL Creatinine 0.90 MG/DL 0.90 MG/DL Estimat Glomerular Filtration 87 ML/MIN 87 ML/MIN Rate Random Glucose 282 MG/DL 154 MG/DL Calcium Level 8.4 MG/DL 8.9 MG/DL Microbiology Date/Time Procedure Status Source Growth 11/15/16 20:20 Stool Occult Blood (GUANACO) - Final Complete Stool Stool HEMOCCULT NEGATIVE 11/15/16 21:30 Gram Stain - Final Complete Sputum Endotracheal 11/15/16 21:30 Sputum Culture - Final Complete Sputum Endotracheal HEAVY GROWTH NORMAL RESPIRATORY JOSE 11/16/16 10:40 Aerobic Blood Culture - Preliminary Resulted Blood Peripheral NO GROWTH IN 1 DAY 11/16/16 10:40 Anaerobic Blood Culture - Preliminary Resulted Blood Peripheral NO GROWTH IN 1 DAY 11/16/16 10:50 Aerobic Blood Culture - Preliminary Resulted Blood Peripheral NO GROWTH IN 1 DAY 11/16/16 10:50 Anaerobic Blood Culture - Preliminary Resulted Blood Peripheral NO GROWTH IN 1 DAY Imaging Last Impressions Chest X-Ray 11/17/16 0000 Signed Impressions: Service Date/Time: Thursday, November 17, 2016 08:56 - CONCLUSION: 1. Improved aeration lung staley compared to the prior exam. 2. Mild left lower lung atelectasis. Julián Perez MD Head CT 11/15/16 0000 Signed Impressions: Service Date/Time: October 23:57 - CONCLUSION: 1. No acute intracranial abnormalities. Bilateral maxillary and right sphenoid sinus disease. Moy Pederson MD Abdomen/Pelvis CT 11/15/16 0000 Signed Impressions: Service Date/Time: October 16:40 - CONCLUSION: Colonic diverticulosis without evidence of active inflammatory disease. Moderate to large amount retained stool. No evidence of obstruction, ileus, free air or abnormal fluid collections. Cholelithiasis. Yousif Van MD Upper Extremity Ultrasound 11/10/16 0000 Signed Impressions: Service Date/Time: Thursday, November 10, 2016 13:28 - CONCLUSION: 1. Nonocclusive thrombus in the right internal jugular vein. 2. Occlusive thrombus in the left cephalic vein. Guerrero Johnston MD Lower Extremity Ultrasound 11/10/16 0000 Signed Impressions: Service Date/Time: Thursday, November 10, 2016 13:04 - CONCLUSION: No DVT. Guerrero Johnston MD Brain MRI 11/09/16 0000 Signed Impressions: Service Date/Time: Wednesday, November 09, 2016 09:48 - CONCLUSION: 1. No acute infarct or other acute intracranial abnormality. 2. Mild, nonspecific chronic white matter signal changes. 3. Pansinusitis and apparent bilateral mastoiditis. Guerrero Cummings MD Skull X-Ray 11/08/16 0000 Signed Impressions: Service Date/Time: October 16:26 - CONCLUSION: No MRI incompatible foreign body is identified. Guerrero Cummings MD Myocardial Perfusion Scan Nuc Med 11/02/16 0600 Signed Impressions: Service Date/Time: Wednesday, November 02, 2016 09:10 - CONCLUSION: 1. Large sized moderate severity fixed defect involving the inferolateral wall including the apex. Ischemia is not excluded. No wall motion abnormalities are identified RISK CATEGORY: Intermediate (1-3%% Annual Mortality Rate) Ben Aden MD CT Angiography 10/30/16 0000 Signed Impressions: Service Date/Time: Sunday, October 30, 2016 14:54 - CONCLUSION: The multiple pulmonary emboli seen in August have completely resolved. I don't see any residual emboli on today's exam. There is new airspace disease in the left upper lobe possible pneumonia. Garett Layton MD Abdomen X-Ray 10/30/16 0000 Signed Impressions: Service Date/Time: Sunday, October 30, 2016 14:47 - CONCLUSION: Normal examination. Bony prominence of the right pubic symphysis Garett Layton MD Physical Exam GENERAL: Awake and alert, not in respiratory distress. SKIN: Has red large macules in his R upper arm, R axilla and R back, smaller area in his L axilla, and in his L back, somewhat dry - looks more eczematous, looks better HEENT: [place] conjunctivae, pupils equal and reactive to light. No icterus. Moist oral mucosa, with dry ulcers on his lips and on the tip of his tongue. NECK: The neck is supple without adenopathy. LUNGS: Decreased breath sounds at both bases. HEART: Normal S1 and S2. No murmur ABDOMEN: Bowel sounds diminished, soft, not tender. No palpable masses. EXTREMITIES: No clubbing or cyanosis or edema. PSYCHIATRIC: The patient is calm. Cooperative NEURO: Grossly nonfocal LINE: No evidence of infection Assessment & Plan Remarks IMPRESSION: Acute hypoxemic respiratory failure Sepsis indicated by tachycardia, fever, leukocytosis, tachypnea. Fevers better Leukocytosis, resolved Pneumonia likely aspiration versus HCAP. Sinusitis based on CT scan involving bilateral maxillary and right sphenoid. Skin rash, questionable etiology. - looks more like eczematous RECOMMENDATIONS: Continue cefepime. Stop Vancomycin. Continue Levaquin. Follow cultures Monitor progress Discussed with Lakisha Clifford MD Nov 18, 2016 08:59
[2016-11-18] MEDS: POLYETHYLENE GLYCOL 17 GM PKG PO SCH (09:00)
[2016-11-18] MEDS: SENNOSIDES 8.6 MG TAB PO SCH ×2 (09:00→19:29)
[2016-11-18] MEDS ORDERED: methylPREDNISolone SOD SUCC 40 MG/1 ML VIAL IV PUSH SCH (09:00)
[2016-11-18] MEDS: PANTOPRAZOLE SOD 40 MG DELAYED RELEASE TAB PO SCH (09:19)
[2016-11-18] MEDS: METOPROLOL TARTRATE 25 MG TAB PO SCH ×2 (09:19→19:29)
[2016-11-18] MEDS: LOSARTAN 50 MG TAB PO SCH (09:19)
[2016-11-18] MEDS: RIVAROXABAN 15 MG TAB PO SCH ×2 (09:19→19:29)
[2016-11-18] MEDS: MAGNESIUM OXIDE 400 MG TAB PO SCH (09:19)
[2016-11-18] MEDS: TAMSULOSIN HCL 0.4 MG CAP PO SCH (09:19)
[2016-11-18] MEDS: INSULIN DETEMIR 100 UNITS/ML VIAL SQ SCH ×2 (09:21→19:29)
[2016-11-18] MEDS: SODIUM CHLORIDE 0.9% FLUSH 5 ML FLUSH FLUSH SCH ×2 (09:21→19:29)
[2016-11-18] MEDS ORDERED: OLANZapine 10 MG TAB PO ONE (12:30)
[2016-11-18] MEDS: HALOPERIDOL LACTATE 5 MG/ML AMP IV PUSH PRN ×2 (13:47→23:38)
[2016-11-18] MEDS ORDERED: ZIPRASIDONE MESYLATE 20 MG VIAL IM ONE (14:00)
[2016-11-18] MEDS: LEVOFLOXACIN 750 MG PREMIX INJ 150 ML IV SCH (15:40)
[2016-11-18] MEDS: LORazepam 2 MG/ML VIAL IV PUSH PRN ×3 (15:41→23:38)
[2016-11-18] MEDS ORDERED: PHARMACY ORDERED LAB XX ONE (19:45)
[2016-11-19] VITALS (10 sets, daily range): BP systolic 138–166; BP diastolic 53–84; PULSE 72–111; RESP 17–26; TEMP 98.8–101.2; O2SAT 92–100
[2016-11-19] MEDS: LORazepam 2 MG/ML VIAL IV PUSH PRN ×2 (03:25→08:15)
[2016-11-19] MEDS: CEFEPIME INJ 2,000 MG in SODIUM CHLORIDE 0.9% INJ 100 ML IV SCH ×3 (03:25→22:12)
[2016-11-19] MEDS: INSULIN ASPART SUPPLEMENTAL SCALE SQ SCH ×2 (05:12→12:00)
[2016-11-19 05:26] LABS: HEMATOCRIT 33.7 % (39.0-51.0); MEAN CELL VOLUME 87.2 FL (80.0-100.0); MEAN CORPUSCULAR HEMOGLOBIN 29.2 PG (27.0-34.0); MEAN CORPUSCULAR HGB CONC 33.5 % (32.0-36.0); PLATELET COUNT 211 TH/MM3 (150-450); RED BLOOD COUNT 3.87 MIL/MM3 (4.50-5.90); REVIEW FLAG FINAL
[2016-11-19 05:56] LABS: POTASSIUM 3.7 MEQ/L (3.5-5.1)
[2016-11-19] MEDS: TAMSULOSIN HCL 0.4 MG CAP PO SCH (08:15)
[2016-11-19] MEDS: POLYETHYLENE GLYCOL 17 GM PKG PO SCH (08:15)
[2016-11-19] MEDS: INSULIN DETEMIR 100 UNITS/ML VIAL SQ SCH ×2 (08:15→21:00)
[2016-11-19] MEDS: ONDANSETRON HCL 4 MG/2 ML VIAL IVP PRN (08:15)
[2016-11-19] MEDS: PANTOPRAZOLE SOD 40 MG DELAYED RELEASE TAB PO SCH (08:16)
[2016-11-19] MEDS: MAGNESIUM OXIDE 400 MG TAB PO SCH (08:16)
[2016-11-19] MEDS: RIVAROXABAN 15 MG TAB PO SCH ×2 (08:16→21:00)
[2016-11-19] MEDS: SENNOSIDES 8.6 MG TAB PO SCH ×2 (08:16→21:00)
[2016-11-19] MEDS: OLANZapine 10 MG TAB PO SCH (08:16)
[2016-11-19] MEDS: LOSARTAN 50 MG TAB PO SCH (08:16)
[2016-11-19] MEDS: METOPROLOL TARTRATE 25 MG TAB PO SCH ×2 (08:16→21:00)
[2016-11-19] MEDS: SODIUM CHLORIDE 0.9% FLUSH 5 ML FLUSH FLUSH SCH ×2 (08:17→21:00)
[2016-11-19] MEDS: RESP: ALBUTEROL 2.5 MG/IPRATROPIUM 0.5 MG NEB (SCH) NEB ×4 (08:31→20:15)
--- NOTE | 2016-11-19 13:33 | HHI.IDPN ---
Note Infectious Disease Note is a 55-year-old white male who was admitted to the hospital on October 30. The patient presented to the emergency department with respiratory distress. Patient is awake. Restless. Noted to be agitated earlier. In soft restraints. Received Ativan earlier. Febrile. Temp spike to 101. Last blood culture 11/16 negative. PAST MEDICAL HISTORY: 1. Hypertension. 2. Diabetes mellitus. 3. Diabetic neuropathy. 4. Hyperlipidemia. 5. History of CVA with residual left-sided weakness. 6. Carpal tunnel syndrome. 7. Left rotator cuff and shoulder surgery. 8. Left hip surgery. 9. Left clavicle repair with plate and screws. ALLERGIES: NO KNOWN DRUG ALLERGIES. MEDICATIONS: 1. Levaquin. 2. Cefepime. SOCIAL HISTORY: No tobacco use. No alcohol. No illicit drugs. FAMILY HISTORY: Unable to obtain. OBJECTIVE: Vital Signs Date Time Temp Pulse Resp B/P Pulse Ox O2 Delivery O2 Flow Rate FiO2 11/19/16 12:00 111 11/19/16 08:33 100 Simple Mask 9.00 11/19/16 08:00 96 Simple Mask 4.00 11/19/16 08:00 97 11/19/16 04:00 99.5 90 24 166/83 95 11/19/16 04:00 90 11/19/16 00:00 101.2 108 26 160/79 95 11/19/16 00:00 108 11/18/16 20:09 95 Simple Mask 9.00 11/18/16 20:00 109 11/18/16 20:00 100.1 109 25 139/78 93 11/18/16 19:00 95 Simple Mask 4.00 11/18/16 18:00 95 11/18/16 16:00 95 11/18/16 16:00 100.7 95 26 105/60 93 11/18/16 14:00 98 11/18/16 11/18/16 11/19/16 15:00 23:00 07:00 Intake Total 240 ml 140 ml 180 ml Output Total 150 ml 500 ml 350 ml Balance 90 ml -360 ml -170 ml Intake Oral 240 ml IV Total 0 ml 140 ml 180 ml Output Urine Total 150 ml 500 ml 350 ml # Bowel Movements 1 1 Laboratory Tests Test 11/18/16 11/19/16 05:50 04:54 White Blood Count 7.3 TH/MM3 11.0 TH/MM3 Red Blood Count 3.58 MIL/MM3 3.87 MIL/MM3 Hemoglobin 10.5 GM/DL 11.3 GM/DL Hematocrit 31.1 % 33.7 % Mean Corpuscular Volume 87.0 FL 87.2 FL Mean Corpuscular Hemoglobin 29.2 PG 29.2 PG Mean Corpuscular Hemoglobin 33.6 % 33.5 % Concent Red Cell Distribution Width 14.8 % 15.0 % Platelet Count 193 TH/MM3 211 TH/MM3 Mean Platelet Volume 10.0 FL 10.2 FL Laboratory Tests Test 11/18/16 11/19/16 05:50 04:54 Sodium Level 144 MEQ/L 143 MEQ/L Potassium Level 4.1 MEQ/L 3.7 MEQ/L Chloride Level 109 MEQ/L 104 MEQ/L Carbon Dioxide Level 25.6 MEQ/L 28.0 MEQ/L Anion Gap 9 MEQ/L 11 MEQ/L Blood Urea Nitrogen 25 MG/DL 23 MG/DL Creatinine 0.90 MG/DL 0.98 MG/DL Estimat Glomerular Filtration 87 ML/MIN 79 ML/MIN Rate Random Glucose 154 MG/DL 99 MG/DL Calcium Level 8.9 MG/DL 9.1 MG/DL IMAGING: Chest X-Ray 11/17/16 0000 Signed Impressions: Service Date/Time: Thursday, November 17, 2016 08:56 - CONCLUSION: 1. Improved aeration lung staley compared to the prior exam. 2. Mild left lower lung atelectasis. Julián Perez MD Head CT 11/15/16 0000 Signed Impressions: Service Date/Time: October 23:57 - CONCLUSION: 1. No acute intracranial abnormalities. Bilateral maxillary and right sphenoid sinus disease. Moy Pederosn MD Abdomen/Pelvis CT 11/15/16 0000 Signed Impressions: Service Date/Time: October 16:40 - CONCLUSION: Colonic diverticulosis without evidence of active inflammatory disease. Moderate to large amount retained stool. No evidence of obstruction, ileus, free air or abnormal fluid collections. Cholelithiasis. Yousif Van MD Upper Extremity Ultrasound 11/10/16 0000 Signed Impressions: Service Date/Time: Thursday, November 10, 2016 13:28 - CONCLUSION: 1. Nonocclusive thrombus in the right internal jugular vein. 2. Occlusive thrombus in the left cephalic vein. Guerrero Johnston MD Lower Extremity Ultrasound 11/10/16 0000 Signed Impressions: Service Date/Time: Thursday, November 10, 2016 13:04 - CONCLUSION: No DVT. Guerrero Johnston MD Brain MRI 11/09/16 0000 Signed Impressions: Service Date/Time: Wednesday, November 09, 2016 09:48 - CONCLUSION: 1. No acute infarct or other acute intracranial abnormality. 2. Mild, nonspecific chronic white matter signal changes. 3. Pansinusitis and apparent bilateral mastoiditis. Guerrero Cummings MD Skull X-Ray 11/08/16 0000 Signed Impressions: Service Date/Time: October 16:26 - CONCLUSION: No MRI incompatible foreign body is identified. Guerrero Cummings MD Myocardial Perfusion Scan Nuc Med 11/02/16 0600 Signed Impressions: Service Date/Time: Wednesday, November 02, 2016 09:10 - CONCLUSION: 1. Large sized moderate severity fixed defect involving the inferolateral wall including the apex. Ischemia is not excluded. No wall motion abnormalities are identified RISK CATEGORY: Intermediate (1-3%% Annual Mortality Rate) Ben Aden MD CT Angiography 10/30/16 0000 Signed Impressions: Service Date/Time: Sunday, October 30, 2016 14:54 - CONCLUSION: The multiple pulmonary emboli seen in August have completely resolved. I don't see any residual emboli on today's exam. There is new airspace disease in the left upper lobe possible pneumonia. Garett Layton MD Abdomen X-Ray 10/30/16 0000 Signed Impressions: Service Date/Time: Sunday, October 30, 2016 14:47 - CONCLUSION: Normal examination. Bony prominence of the right pubic symphysis Garett Layton MD PHYSICAL EXAMINATION: GENERAL: Awake. Restless. HEENT: Head atraumatic. Extraocular movements appear grossly intact. No icterus. Oropharynx with no visible lesions. NECK: The neck is supple. LUNGS: Decreased breath sounds. HEART: Normal S1 and S2. ABDOMEN: Bowel sounds diminished, soft, not tender. No palpable masses. EXTREMITIES: No clubbing or cyanosis or edema. SKIN: The maculopapular erythematous rash at the right elbow and right humerus and also in an area of the left forearm and the posterior left elbow and excoriated lesions at the posterior distal right tibia and anterior left fibula is the same. IMPRESSION: 1. Acute hypoxemic respiratory failure 2. Sepsis indicated by tachycardia, fever, leukocytosis, tachypnea. 3. Pneumonia likely aspiration versus HCAP. 4. Sinusitis based on CT scan involving bilateral maxillary and right sphenoid. 5. Skin rash. ? Eczema. RECOMMENDATIONS: 1. Continue cefepime. 2. Continue Levaquin. 3. Monitor the temperatures. John Gregg MD Nov 19, 2016 13:33
[2016-11-19] MEDS: LEVOFLOXACIN 750 MG PREMIX INJ 150 ML IV SCH (15:00)
--- NOTE | 2016-11-19 17:14 | HHI.PR ---
Subjective Remarks Patient seen this morning around 11:30 AM. Sleeping, wakes for exam. Received Ativan around 6 AM. Denies any pain. Objective Vital Signs Date Time Temp Pulse Resp B/P Pulse Ox O2 Delivery O2 Flow Rate FiO2 11/19/16 16:36 99.0 107 22 143/80 95 11/19/16 15:50 95 Nasal Cannula 4.00 11/19/16 14:43 72 11/19/16 12:00 98.9 103 17 145/74 93 11/19/16 12:00 111 11/19/16 08:33 100 Simple Mask 9.00 11/19/16 08:00 99.0 102 18 138/84 94 11/19/16 08:00 96 Simple Mask 4.00 11/19/16 08:00 97 11/19/16 04:00 99.5 90 24 166/83 95 11/19/16 04:00 90 11/19/16 00:00 101.2 108 26 160/79 95 11/19/16 00:00 108 11/18/16 20:09 95 Simple Mask 9.00 11/18/16 20:00 109 11/18/16 20:00 100.1 109 25 139/78 93 11/18/16 19:00 95 Simple Mask 4.00 11/18/16 18:00 95 I/O 11/18/16 11/18/16 11/18/16 11/19/16 11/19/16 11/19/16 07:00 15:00 23:00 07:00 15:00 23:00 Intake Total 522 ml 240 ml 140 ml 180 ml Output Total 600 ml 150 ml 500 ml 350 ml Balance -78 ml 90 ml -360 ml -170 ml Intake Oral 400 ml 240 ml IV Total 122 ml 0 ml 140 ml 180 ml Output Urine Total 600 ml 150 ml 500 ml 350 ml # Bowel Movements 1 1 Result Diagram: 11/19/16 0454 11/19/16 0454 Objective Remarks GENERAL: She sitting up in bed. Somnolent, wakes for exam. Snoring while sleeping. Appears comfortable. SKIN: Warm and dry. HEAD: Normocephalic. EYES: No scleral icterus. No injection or drainage. NECK: Supple, trachea midline. No JVD CARDIOVASCULAR: Regular rate and rhythm without murmurs, gallops, or rubs. RESPIRATORY: Breath sounds equal bilaterally. No accessory muscle use. GASTROINTESTINAL: Abdomen soft, non-tender, nondistended. MUSCULOSKELETAL: No cyanosis, or edema. BACK: Nontender without obvious deformity. No CVA tenderness. A/P Assessment and Plan //Sepsis. Acute. Improving. //Pneumonia with acute respiratory failure requiring intubation. -Patient successfully extubated 11/12. Has been stable on room air but decompensated on 11/16/16. New Fevers. - Improving. Infectious disease following. Currently on cefepime, continue Levaquin. - Appreciate pulmonology following. -Continue Duonebs QID and PRN -11/19. Repeat sputum culture with normal respiratory johnny. Continue antibiotics. //Acute encephalopathy: Resolving. Secondary to above. Head CT unremarkable except for Sinus disease. -11/19. Decrease Ativan 2 mg IV every 4 hours as needed for agitation to 1 mg IV as needed every 6 hours. //Dysphagia: Speech therapy following. Full liquid diet with honey thickened //History of bilateral PE in August 2016. CTA negative on this admission. -Continue Xarelto 15 mg BID //COPD Exacerbation -Continue Antibiotics as above - Continue Solu-Medrol - Appreciate Pulmonology input. //Ischemic heart disease, HTN, HLD -Continue losartan. Metoprolol 25 BID, 81 mg daily aspirin for abnormal Lexiscan below/and atorvastatin 20 mg daily for dyslipidemia. - Lexiscan revealed large fixed defects inferior lateral wall and apex. Intermediate 1-3% - ECHO with EF of 50-55%, //MIRNA. Resolved. //Type 2 DM - Patient had an episode of Hypoglycemia. Levemir at a lower dose. Will need to adjust as he starts to eat more. -Have some elevated blood glucose in the 300s yesterday, however acceptable today. Continue Accu-Chek with sliding scale insulin. //Sinusitis/Mastoiditis seen on CT - On antibiotics as above. //Diarrhea. - C Diff and Hemoccult neg. Abd CT shows Diverticulosis and retained stool. DVT PPx: Xarelto, SCDs GI prophylaxis: PPI Discharge Planning Transferred to medical floor today. Crow Patel MD Nov 19, 2016 17:14
[2016-11-20] VITALS (9 sets, daily range): BP systolic 90–142; BP diastolic 56–76; PULSE 94–123; RESP 18–21; TEMP 97.4–99; O2SAT 91–99
[2016-11-20] MEDS: CEFEPIME INJ 2,000 MG in SODIUM CHLORIDE 0.9% INJ 100 ML IV SCH (04:33)
[2016-11-20] MEDS: INSULIN ASPART SUPPLEMENTAL SCALE SQ SCH ×4 (06:00→18:00)
[2016-11-20] MEDS: DEXTROSE 50% IN WATER 50 ML VIAL(D50) IV PRN (06:35)
[2016-11-20 07:07] LABS: BASOPHIL % 0.4 % (0.0-2.0); EOSINOPHIL # 0.2 TH/MM3 (0-0.4); EOSINOPHIL % 2.2 % (0.0-4.0); HEMATOCRIT 35.8 % (39.0-51.0); HEMO FLAGS DIFF FINAL; LYMPH % 14.9 % (9.0-44.0); LYMPHOCYTE # 1.4 TH/MM3 (1.0-4.8); MEAN CORPUSCULAR HEMOGLOBIN 28.4 PG (27.0-34.0); MEAN CORPUSCULAR HGB CONC 32.3 % (32.0-36.0); MONO % 8.8 % (0.0-8.0); NEUT % 73.7 % (16.0-70.0); PLATELET COUNT 191 TH/MM3 (150-450); RED BLOOD COUNT 4.07 MIL/MM3 (4.50-5.90); RED CELL DISTRIBUTION WIDTH 14.8 % (11.6-17.2); WHITE BLOOD COUNT 9.5 TH/MM3 (4.0-11.0)
[2016-11-20 07:31] LABS: BICARBONATE 28.2 MEQ/L (21.0-32.0); POTASSIUM 3.9 MEQ/L (3.5-5.1)
[2016-11-20] MEDS: RESP: ALBUTEROL 2.5 MG/IPRATROPIUM 0.5 MG NEB (SCH) NEB ×4 (08:16→20:28)
[2016-11-20] MEDS: TAMSULOSIN HCL 0.4 MG CAP PO SCH (08:37)
[2016-11-20] MEDS: METOPROLOL TARTRATE 25 MG TAB PO SCH ×2 (08:37→21:00)
[2016-11-20] MEDS: PANTOPRAZOLE SOD 40 MG DELAYED RELEASE TAB PO SCH (08:37)
[2016-11-20] MEDS: LOSARTAN 50 MG TAB PO SCH (08:38)
[2016-11-20] MEDS: MAGNESIUM OXIDE 400 MG TAB PO SCH (08:38)
[2016-11-20] MEDS: SODIUM CHLORIDE 0.9% FLUSH 5 ML FLUSH FLUSH SCH ×2 (08:40→21:00)
[2016-11-20] MEDS: POLYETHYLENE GLYCOL 17 GM PKG PO SCH (08:53)
[2016-11-20] MEDS: RIVAROXABAN 15 MG TAB PO SCH ×2 (08:55→21:00)
[2016-11-20] MEDS: SENNOSIDES 8.6 MG TAB PO SCH ×2 (08:56→21:00)
[2016-11-20] MEDS: OLANZapine 10 MG TAB PO SCH (09:00)
[2016-11-20] MEDS: INSULIN DETEMIR 100 UNITS/ML VIAL SQ SCH ×2 (09:00→21:00)
--- NOTE | 2016-11-20 17:14 | PD.CONS ---
HPI History of Present Illness This is a 55 year old male who is currently hospitalized for sepsis, pneumonia, acute encephalopathy, dysphagia, hx of bilateral PE, COPD exacerbation, ischemic heart disease, htn, hyperlipidemia, MIRNA, sinusitis/mastoiditis, diarrhea, and Type II DM. He required intubation with mechanical ventilation during this this hospitalization, but he has since been extubated. He is currently on 4L via n/c and has mildly labored breathing with course breath sounds. He gets short of breath when he tries to speak. Has been having issues with swallowing and Speech Therapy is following for severe oropharyngeal dysphagia. GI has been consulted for dysphagia, odynophagia, suspected esophagitis. A modified barium swallow has been ordered by the attending, but this has not been done yet. The patient cannot tell me how long he has been having issues swallowing. He states that he had problems following his stroke in 2010, but that this gradually improved and he was able to eat without difficulty. He states that he is having some pain in his esophagus, which he describes as a dull ache. He states he is having problems swallowing, but denies food getting caught. He also denies any increased coughing with meals. He reports that he has not had anything to eat in 2 weeks and he is very upset about his current NPO status. He tells me that he was only made NPO by the Speech therapist until I came to see him and changed his diet so he could get some coffee. He cannot tell me if he is having any heartburn. He denies n/v. He does report intermittent abdominal pain, but cannot further described this. He denies any bowel changes. He denies ever having any endoscopies in the past. He is having some oral pain, but states that this is because he is hungry and has not had any food today. (Brielle Mars) PFSH Past Medical History Hypertension Diabetes Diabetic neuropathy Hyperlipidemia COPD CVAwith residual left-sided weakness Carpal tunnel syndrome Past Surgical History Left rotator cuff and shoulder surgery Left hip surgery (Brielle Mars) Coded Allergies: No Known Allergies (Unverified , 10/30/16) Medications Allergies Coded Allergies Type Severity Reaction Last Updated Verified No Known Allergies 10/30/16 No Active Scripts Medications Dose Route/Sig Days Date Category Dose Instructions Magnesium Oxide 400 Mg Tab 400 Mg PO DAILY 1/13/17 Reported Xarelto (Rivaroxaban) 15 Mg Tab 15 Mg PO BID 08/30/16 Rx Pantoprazole (Pantoprazole Sodium) 40 Mg Tab 40 Mg PO DAILY 08/28/16 Reported Aspirin EC (Aspirin) 81 Mg Tabdr 81 Mg PO DAILY 08/06/16 Rx Losartan (Losartan Potassium) 25 Mg Tab 50 Mg PO DAILY 08/01/16 Reported Atorvastatin (Atorvastatin Calcium) 20 Mg Tab 20 Mg PO DAILY 08/01/16 Reported Lyrica (Pregabalin) 75 Mg Cap 75 Mg PO BID 08/01/16 Reported Venlafaxine ER 24 HR (Venlafaxine HCl) 75 Mg Cap 75 Mg PO TID 08/01/16 Reported Lantus Inj (Insulin Glargine) 1,000 Unit/10 Ml Vial 45 Units SQ BID 08/01/16 Reported Novolog Inj (Insulin Aspart) 1,000 Unit/10 Ml Vial 0 SQ DIRECTED 08/01/16 Reported Sliding Scale as directed. Metoprolol Tartrate 25 Mg Tab 25 Mg PO BID 08/01/16 Reported Family History Several family members with diabetes Brother with prostate cancer Social History Quit smoking 1 months ago, state he smoked for more than 30 years Denies any alcohol abuse. Stated he quit in 2010. Denies any drug abuse (Brielle Mars) Review of Systems Constitutional: DENIES: Fatigue Respiratory: COMPLAINS OF: Cough, Wheezing, Sputum production, Shortness of breath Gastrointestinal: COMPLAINS OF: Abdominal pain, Difficulty Swallowing, DENIES : Nausea, Vomiting, Swelling of Abdomen, Heartburn Musculoskeletal: DENIES: Joint pain Hematologic/lymphatic: COMPLAINS OF: Bruising ROS Unable to provide much hx, poor historian (Brielle Mars) GI Exam Vitals I&O Vital Signs Date Time Temp Pulse Resp B/P Pulse Ox O2 Delivery O2 Flow Rate FiO2 11/20/16 16:00 97.7 97 18 109/63 97 11/20/16 12:00 99.0 104 18 133/72 92 11/20/16 08:20 99 Nasal Cannula 4.00 11/20/16 08:00 97.4 119 21 90/57 96 11/20/16 04:00 98.5 97 20 134/76 95 11/20/16 00:00 98.6 100 20 142/56 95 11/19/16 20:15 94 Nasal Cannula 5.00 11/19/16 20:00 98.8 103 20 147/53 92 11/19/16 19:25 Nasal Cannula 4.00 11/19/16 19:00 97 I/O 11/19/16 11/19/16 11/19/16 11/20/16 11/20/16 11/20/16 07:00 15:00 23:00 07:00 15:00 23:00 Intake Total 180 ml Output Total 350 ml 400 ml Balance -170 ml -400 ml IV Total 180 ml Output Urine Total 350 ml 400 ml # Voids 2 2 1 # Bowel Movements 1 Imaging Last Impressions Chest X-Ray 11/17/16 0000 Signed Impressions: Service Date/Time: Thursday, November 17, 2016 08:56 - CONCLUSION: 1. Improved aeration lung staley compared to the prior exam. 2. Mild left lower lung atelectasis. Julián Perez MD Head CT 11/15/16 0000 Signed Impressions: Service Date/Time: October 23:57 - CONCLUSION: 1. No acute intracranial abnormalities. Bilateral maxillary and right sphenoid sinus disease. Moy Pederson MD Abdomen/Pelvis CT 11/15/16 0000 Signed Impressions: Service Date/Time: October 16:40 - CONCLUSION: Colonic diverticulosis without evidence of active inflammatory disease. Moderate to large amount retained stool. No evidence of obstruction, ileus, free air or abnormal fluid collections. Cholelithiasis. Yousif Van MD Upper Extremity Ultrasound 11/10/16 0000 Signed Impressions: Service Date/Time: Thursday, November 10, 2016 13:28 - CONCLUSION: 1. Nonocclusive thrombus in the right internal jugular vein. 2. Occlusive thrombus in the left cephalic vein. Guerrero Johnston MD Lower Extremity Ultrasound 11/10/16 0000 Signed Impressions: Service Date/Time: Thursday, November 10, 2016 13:04 - CONCLUSION: No DVT. Guerrero Johnston MD Brain MRI 11/09/16 0000 Signed Impressions: Service Date/Time: Wednesday, November 09, 2016 09:48 - CONCLUSION: 1. No acute infarct or other acute intracranial abnormality. 2. Mild, nonspecific chronic white matter signal changes. 3. Pansinusitis and apparent bilateral mastoiditis. Guerrero Cummings MD Skull X-Ray 11/08/16 0000 Signed Impressions: Service Date/Time: October 16:26 - CONCLUSION: No MRI incompatible foreign body is identified. Guerrero Cummings MD Myocardial Perfusion Scan [facility] 11/02/16 0600 Signed Impressions: Service Date/Time: Wednesday, November 02, 2016 09:10 - CONCLUSION: 1. Large sized moderate severity fixed defect involving the inferolateral wall including the apex. Ischemia is not excluded. No wall motion abnormalities are identified RISK CATEGORY: Intermediate (1-3%% Annual Mortality Rate) Ben Aden MD CT Angiography 10/30/16 0000 Signed Impressions: Service Date/Time: Sunday, October 30, 2016 14:54 - CONCLUSION: The multiple pulmonary emboli seen in August have completely resolved. I don't see any residual emboli on today's exam. There is new airspace disease in the left upper lobe possible pneumonia. Garett Layton MD Abdomen X-Ray 10/30/16 0000 Signed Impressions: Service Date/Time: Sunday, October 30, 2016 14:47 - CONCLUSION: Normal examination. Bony prominence of the right pubic symphysis Garett Layton MD Laboratory Test 11/20/16 06:42 White Blood Count 9.5 TH/MM3 Red Blood Count 4.07 MIL/MM3 Hemoglobin 11.6 GM/DL Hematocrit 35.8 % Mean Corpuscular Volume 88.0 FL Mean Corpuscular Hemoglobin 28.4 PG Mean Corpuscular Hemoglobin 32.3 % Concent Red Cell Distribution Width 14.8 % Platelet Count 191 TH/MM3 Mean Platelet Volume 9.4 FL Neutrophils (%) (Auto) 73.7 % Lymphocytes (%) (Auto) 14.9 % Monocytes (%) (Auto) 8.8 % Eosinophils (%) (Auto) 2.2 % Basophils (%) (Auto) 0.4 % Neutrophils # (Auto) 7.0 TH/MM3 Lymphocytes # (Auto) 1.4 TH/MM3 Monocytes # (Auto) 0.8 TH/MM3 Eosinophils # (Auto) 0.2 TH/MM3 Basophils # (Auto) 0.0 TH/MM3 CBC Comment DIFF FINAL Differential Comment Sodium Level 143 MEQ/L Potassium Level 3.9 MEQ/L Chloride Level 107 MEQ/L Carbon Dioxide Level 28.2 MEQ/L Anion Gap 8 MEQ/L Blood Urea Nitrogen 21 MG/DL Creatinine 0.88 MG/DL Estimat Glomerular Filtration 89 ML/MIN Rate Random Glucose 147 MG/DL Calcium Level 8.8 MG/DL Date/Time Procedure Status Source Growth 11/16/16 10:50 Aerobic Blood Culture - Preliminary Resulted Blood Peripheral NO GROWTH IN 4 DAYS 11/16/16 10:50 Anaerobic Blood Culture - Preliminary Resulted Blood Peripheral NO GROWTH IN 4 DAYS 11/15/16 21:30 Gram Stain - Final Complete Sputum Endotracheal 11/15/16 21:30 Sputum Culture - Final Complete Sputum Endotracheal HEAVY GROWTH NORMAL RESPIRATORY JOSE 11/15/16 20:20 Stool Occult Blood (GUANACO) - Final Complete Stool Stool HEMOCCULT NEGATIVE Physical Examination HEENT: Normocephalic; atraumatic CHEST: Resp mildly labored, course breath sounds throughout with expiratory wheezing. O2 4L via n/c. SOB while speaking. CARDIAC: RRR ABDOMEN: Soft, nondistended, nontender; no hepatosplenomegaly; bowel sounds are present in all four quadrants. EXTREMITIES: No clubbing, cyanosis, or edema. SKIN: Multiple ecchymotic areas SET UP TECHNICIAN: Left sided weakness, lethargic. (Brielle Mars) Assessment and Plan Plan ASSESSMENT: - Dysphagia, Odynophagia. GI suspected for suspected esophagitis. ST following , pt has severe oropharyngeal dysphagia and modified barium swallow has been ordered. The patient reports he had difficulty following his CVA in 2010, but that this improved and he has not had further issues until recently, although he cannot provide any details for this. He reports that he has painful swallowing and difficulty but denies food getting stuck or coughing. He denies n/v. He has some oral discomfort, but states this is from not eating and is upset about his nPO status. At this time, he is having mildly labored breathing, sob speaking to me, course breath sounds with wheezing, on 4l via n/c. He is not stable for any procedure at this time. MBS pending. He is on Diflucan, Nystatin, Protonix. Of note, he is also on Xarelto for hx of PE. At this time, would await MBS. Could place NGT for meds/feeding if needed, although patient is reluctant to have this. Consider EGD once MBS resulted and patient's respiratory status improves. - Resp. Failure, PNA, COPD, Hx Bilateral PE. S/P Extubation. Abx, Nebs per pulmonary. Xarelto. - Ischemic heart disease, HTN, hyperlipidemia, DM per primary PLAN: - NPO for now- await MBS - Await MBS - Could place NGT for meds/feedings if needed - Cont. PPI - Cont. Nystatin for now - Cont. Diflucan for now - Consider after MBS and once pulmonary status improves - Supportive care - Further recommendations to follow based on results of above - Pt seen and examined by Dr. De Souza and myself and this note is written on her behalf (Brielle Mars) Physician Comments seen, examined agree with above await modified ba swallow, based on that we will determine if he needs egd/peg, egd/dilatation consider ct neck (Sarah De Souza MD) Brielle Mars Nov 20, 2016 17:14 Sarah De Souza MD Nov 20, 2016 17:23
[2016-11-20] MEDS: FLUCONAZOLE 200 MG PREMIX BAG 100 ML IV SCH (17:22)
[2016-11-20] MEDS: NYSTATIN SUSP 500,000 U/5 ML CUP SWISH-SWAL SCH (22:03)
--- NOTE | 2016-11-20 22:53 | HHI.PR ---
Subjective Remarks Patient seen this morning around 11 AM. Patient says he has very sore throat, cannot swallow. Denies any chest pain or shortness of breath. Speech therapy has made him nothing by mouth. Objective Vital Signs Date Time Temp Pulse Resp B/P Pulse Ox O2 Delivery O2 Flow Rate FiO2 11/20/16 20:31 98 21 11/20/16 20:00 98.2 94 18 137/75 91 11/20/16 16:00 97.7 97 18 109/63 97 11/20/16 12:00 99.0 104 18 133/72 92 11/20/16 08:20 99 Nasal Cannula 4.00 11/20/16 08:00 97.4 119 21 90/57 96 11/20/16 04:00 98.5 97 20 134/76 95 11/20/16 00:00 98.6 100 20 142/56 95 I/O 11/19/16 11/19/16 11/19/16 11/20/16 11/20/16 11/20/16 07:00 15:00 23:00 07:00 15:00 23:00 Intake Total 180 ml Output Total 350 ml 400 ml Balance -170 ml -400 ml IV Total 180 ml Output Urine Total 350 ml 400 ml # Voids 2 2 1 # Bowel Movements 1 Result Diagram: 11/20/16 0642 11/20/16 0642 Objective Remarks GENERAL: She sitting up in bed. sitting up on couch in room. alert and oriented 3. SKIN: Warm and dry. HEAD: Normocephalic. EYES: No scleral icterus. No injection or drainage. NECK: Supple, trachea midline. No JVD. patient does have what appears to be discolored off-white plaques on tongue which were missed yesterday due to off- white color. Appearance of thrush nonetheless. CARDIOVASCULAR: Regular rate and rhythm without murmurs, gallops, or rubs. RESPIRATORY: Breath sounds equal bilaterally. No accessory muscle use. GASTROINTESTINAL: Abdomen soft, non-tender, nondistended. MUSCULOSKELETAL: No cyanosis, or edema. BACK: Nontender without obvious deformity. No CVA tenderness. A/P Assessment and Plan 11/20 -Dysphasia. Follow-up Barium swallow. Appreciate GI assistance Somnolence much improved on decreased Ativan dosage.- //Sepsis. Acute. Improving. //Pneumonia with acute respiratory failure requiring intubation. -Patient successfully extubated 11/12. Has been stable on room air but decompensated on 11/16/16. New Fevers. - Improving. Infectious disease following. Currently on cefepime, continue Levaquin. - Appreciate pulmonology following. -Continue Duonebs QID and PRN -11/19. Repeat sputum culture with normal respiratory johnny. Continue antibiotics. -11/20. Respiratory status continues improving. Continue antibiotics. Appreciate pulmonology assistance //Acute encephalopathy: Resolving. Secondary to above. Head CT unremarkable except for Sinus disease. -11/19. Decrease Ativan 2 mg IV every 4 hours as needed for agitation to 1 mg IV as needed every 6 hours. -11/20. Somnolence appears improved on decreased dose of Ativan. Continue monitor. //Dysphagia: //Odynophagia //Suspected Nahomy esophagitis -11/20. Start fluconazole, as well as nystatin swish and swallow. Barium swallow ordered. GI evaluation appreciated. Continue to monitor. //History of bilateral PE in August 2016. CTA negative on this admission. -Continue Xarelto 15 mg BID //COPD Exacerbation -Continue Antibiotics as above - Continue Solu-Medrol - Appreciate Pulmonology assistance. //Ischemic heart disease, HTN, HLD -Continue losartan. Metoprolol 25 BID, 81 mg daily aspirin for abnormal Lexiscan below/and atorvastatin 20 mg daily for dyslipidemia. - Lexiscan revealed large fixed defects inferior lateral wall and apex. Intermediate 1-3% - ECHO with EF of 50-55%, -11/20. Vital signs stable. Patient does have some mild tachycardia from not being able to swallow metoprolol. Continue to monitor. Transfer to ICU or CIC if needs IV metoprolol. //MIRNA. Resolved. //Type 2 DM - Patient had an episode of Hypoglycemia. -11/20. Patient with another episode of hyperglycemia. Patient nothing by mouth for dysphasia. Hold Levemir. D10 1/2ns at 20 miles per hour. //Sinusitis/Mastoiditis seen on CT - On antibiotics as above. //Diarrhea. - C Diff and Hemoccult neg. Abd CT shows Diverticulosis and retained stool. DVT PPx: Xarelto, SCDs GI prophylaxis: PPI Discharge Planning patient is currently nothing by mouth. Awaiting further evaluation for dysphasia. physical therapy recommends rehabilitation Patient has apparently been accepted at SNF. Crow Patel MD Nov 20, 2016 22:52
[2016-11-20] MEDS ORDERED: SODIUM CHLORIDE 23.4% INJ 77 MEQ in DEXTROSE 10% INJ 1,000 ML IV SCH (23:00)
[2016-11-21] VITALS (8 sets, daily range): BP systolic 94–141; BP diastolic 56–81; PULSE 71–110; RESP 18–20; TEMP 96.8–98.5; O2SAT 92–99
[2016-11-21] MEDS: INSULIN ASPART SUPPLEMENTAL SCALE SQ SCH ×4 (05:40→18:00)
[2016-11-21] MEDS ORDERED: LEVOFLOXACIN 500 MG TAB PO SCH (06:00)
[2016-11-21 07:01] LABS: AUTOMATED NEUTROPHIL # 7.5 TH/MM3 (1.8-7.7); BASOPHIL % 0.2 % (0.0-2.0); EOSINOPHIL # 0.3 TH/MM3 (0-0.4); EOSINOPHIL % 2.7 % (0.0-4.0); HEMATOCRIT 34.8 % (39.0-51.0); HEMO FLAGS DIFF FINAL; LYMPH % 12.4 % (9.0-44.0); LYMPHOCYTE # 1.2 TH/MM3 (1.0-4.8); MEAN CELL VOLUME 87.8 FL (80.0-100.0); MEAN CORPUSCULAR HEMOGLOBIN 28.4 PG (27.0-34.0); MEAN CORPUSCULAR HGB CONC 32.3 % (32.0-36.0); MONO % 6.8 % (0.0-8.0); NEUT % 77.9 % (16.0-70.0); PLATELET COUNT 174 TH/MM3 (150-450); RED BLOOD COUNT 3.96 MIL/MM3 (4.50-5.90); RED CELL DISTRIBUTION WIDTH 14.7 % (11.6-17.2); WHITE BLOOD COUNT 9.7 TH/MM3 (4.0-11.0)
[2016-11-21 07:14] LABS: BICARBONATE 28.1 MEQ/L (21.0-32.0); MAGNESIUM 2.1 MG/DL (1.5-2.5); POTASSIUM 3.9 MEQ/L (3.5-5.1)
[2016-11-21] MEDS: RESP: ALBUTEROL 2.5 MG/IPRATROPIUM 0.5 MG NEB (SCH) NEB ×3 (08:31→21:11)
[2016-11-21] MEDS ORDERED: SODIUM CHLOR 0.9% 250 ML INJ 250 ML IV ONE (08:45)
[2016-11-21] MEDS: SODIUM CHLORIDE 0.9% FLUSH 5 ML FLUSH FLUSH SCH ×2 (09:00→21:11)
[2016-11-21] MEDS: METOPROLOL TARTRATE 25 MG TAB PO SCH ×2 (09:00→21:09)
[2016-11-21] MEDS: PANTOPRAZOLE SOD 40 MG DELAYED RELEASE TAB PO SCH (09:00)
[2016-11-21] MEDS: RIVAROXABAN 15 MG TAB PO SCH ×2 (09:00→21:10)
[2016-11-21] MEDS: LOSARTAN 50 MG TAB PO SCH (09:00)
[2016-11-21] MEDS: MAGNESIUM OXIDE 400 MG TAB PO SCH (09:00)
[2016-11-21] MEDS: OLANZapine 10 MG TAB PO SCH (09:00)
[2016-11-21] MEDS: NYSTATIN SUSP 500,000 U/5 ML CUP SWISH-SWAL SCH ×4 (09:00→21:08)
[2016-11-21] MEDS: POLYETHYLENE GLYCOL 17 GM PKG PO SCH (09:00)
[2016-11-21] MEDS: TAMSULOSIN HCL 0.4 MG CAP PO SCH (09:00)
[2016-11-21] MEDS: SENNOSIDES 8.6 MG TAB PO SCH ×2 (09:00→21:09)
--- NOTE | 2016-11-21 10:25 | HHI.GIFU ---
GI Follow-up Note Consult Follow-up Subjective: Patient laying in bed comfortably, just returned from modified ba swallow, awaiting results.Still hoarse , sore throat, wants to go home.Explained that we need to further investigate and if aspiration present will need peg tube vs ngt for short term.unhappy about this Objective: PHYSICAL EXAMINATION: Vitals signs stable No fever Vital Signs Date Time Temp Pulse Resp B/P Pulse Ox O2 Delivery O2 Flow Rate FiO2 11/21/16 09:19 Nasal Cannula 4.00 11/21/16 08:31 92 21 11/21/16 08:00 96.8 93 20 129/73 96 11/21/16 04:00 98.1 97 18 141/71 97 HEENT: Pupils round and reactive to light; normocephalic; atraumatic; no jaundice. Throat is clear. NECK: Neck is supple, no JVD, no lymphadenopathy, hoarse voice CHEST: crackles CARDIAC: Regular rate and rhythm with no murmur gallop or rubs. ABDOMEN: Soft, obese ,nondistended, nontender; no hepatosplenomegaly; bowel sounds are present in all four quadrants. EXTREMITIES: No clubbing, cyanosis, or edema. SKIN: Normal; no rash; no jaundice. CASE MANAGEMENT ASSOCIATE: No focal deficits; alert and oriented times three. Available Data (labs, X- Rays, Procedues) : Laboratory Tests Test 11/20/16 11/21/16 06:42 06:25 White Blood Count 9.5 TH/MM3 9.7 TH/MM3 Red Blood Count 4.07 MIL/MM3 3.96 MIL/MM3 Hemoglobin 11.6 GM/DL 11.2 GM/DL Hematocrit 35.8 % 34.8 % Mean Corpuscular Volume 88.0 FL 87.8 FL Mean Corpuscular Hemoglobin 28.4 PG 28.4 PG Mean Corpuscular Hemoglobin 32.3 % 32.3 % Concent Red Cell Distribution Width 14.8 % 14.7 % Platelet Count 191 TH/MM3 174 TH/MM3 Mean Platelet Volume 9.4 FL 9.2 FL Neutrophils (%) (Auto) 73.7 % 77.9 % Lymphocytes (%) (Auto) 14.9 % 12.4 % Monocytes (%) (Auto) 8.8 % 6.8 % Eosinophils (%) (Auto) 2.2 % 2.7 % Basophils (%) (Auto) 0.4 % 0.2 % Neutrophils # (Auto) 7.0 TH/MM3 7.5 TH/MM3 Lymphocytes # (Auto) 1.4 TH/MM3 1.2 TH/MM3 Monocytes # (Auto) 0.8 TH/MM3 0.7 TH/MM3 Eosinophils # (Auto) 0.2 TH/MM3 0.3 TH/MM3 Basophils # (Auto) 0.0 TH/MM3 0.0 TH/MM3 CBC Comment DIFF FINAL DIFF FINAL Differential Comment Sodium Level 143 MEQ/L 142 MEQ/L Potassium Level 3.9 MEQ/L 3.9 MEQ/L Chloride Level 107 MEQ/L 105 MEQ/L Carbon Dioxide Level 28.2 MEQ/L 28.1 MEQ/L Anion Gap 8 MEQ/L 9 MEQ/L Blood Urea Nitrogen 21 MG/DL 25 MG/DL Creatinine 0.88 MG/DL 1.02 MG/DL Estimat Glomerular Filtration 89 ML/MIN 75 ML/MIN Rate Random Glucose 147 MG/DL 182 MG/DL Calcium Level 8.8 MG/DL 8.5 MG/DL Phosphorus Level 3.2 MG/DL Magnesium Level 2.1 MG/DL Albumin 2.4 GM/DL ASSESSMENT/PLAN: oropharyngeal dysphagia possible aspiration awaiting modified ba swallow sore throat -pharyngitis, laryngitis? Recommendations await modified ba swallow ct neck nutritional consult may need peg vs ngt vs tpn based n the above results It was a pleasure seeing Vinicio Julio. Thank you for this consult. Entered by: Sarah Sainz MD Nov 21, 2016 10:25
--- NOTE | 2016-11-21 11:17 | RADRPT ---
EXAM DATE/TIME: 11/21/2016 00:00 [facility] COMPARISON: No previous studies available for comparison. INDICATIONS : Dysphagia. FLUORO TIME: 1.9 minutes IMAGE COUNT: 0 CONTRAST: Dose as prescribed by speech pathologist. MEDICAL HISTORY : Hypertension. Stroke Diabetes mellitus type 2. SURGICAL HISTORY : None. ENCOUNTER: Subsequent ACUITY: 3 weeks PAIN SCORE: 0/10 LOCATION: Esophagus. FINDINGS: A modified barium swallow was performed with speech pathology. Patient was given a variety of liquids to swallow. Patient showed marked pooling in the valleculae with immediate laryngeal penetration and kacey aspira tion with both the honey thick and pudding consistencies of barium contrast. This did elicit a cough reflex and the patient was able to clear the material with forced coughing For a full detailed report, see report by the speech pathologist. CONCLUSION: Aspiration of multiple consistencies of barium contrast. Kush Vigil MD on November 21, 2016 at 11:14 Board Certified Radiologist. This report was verified electronically.
[2016-11-21] MEDS ORDERED: IOHEXOL 350 MG/ML 10 ML VIAL (for RAD DIAG) IV ONE (12:14)
--- NOTE | 2016-11-21 13:17 | RADRPT ---
EXAM DATE/TIME: 11/21/2016 12:02 [facility] COMPARISON: BA SWALLOW W/SPEECH PATHOLOGY, November 21, 2016, 0:00. CT BRAIN W/O CONTRAST, November 15, 2016, 23:57. INDICATIONS : Sore throat. IV CONTRAST: 45 cc Omnipaque 350 (iohexol) IV RADIATION DOSE: 15.72 CTDIvol (mGy) MEDICAL HISTORY : Cardiovascular disease. Diabetes mellitus type 1. SURGICAL HISTORY : None. ENCOUNTER: Initial ACUITY: 2 days PAIN SCALE: 3/10 LOCATION: neck TECHNIQUE: Volumetric scanning of the neck was performed. Using automated exposure control and adjustment of th e mA and/or kV according to patient size, radiation dose was kept as low as reasonably achievable to obtain optimal diagnostic quality images. FINDINGS: NASOPHARYNX: The nasopharyngeal airway has a normal configuration. No mucosal thickening or mass is seen. OROPHARYNX: The intrinsic muscles of the tongue are symmetric. There is some symmetric enlargement of the tonsil lar pillars bilaterally. The prevertebral soft tissues are not thickened. There is some residual john um evident coating the mucosal surfaces of the oropharynx. LARYNX: The supraglottic, glottic, and infraglottic structures are intact. There is some residual barium evid ent within the performed recess bilaterally. PARAPHARYNGEAL: The parapharyngeal space is intact. SALIVARY GLANDS: The parotid and submandibular glands are intact. LYMPH NODES: No enlarged or necrotic-appearing nodes. THYROID: Homogeneous enhancement without evidence of nodule. BONES: There are degenerative changes throughout the cervical spine. Note is made of extensive mucoperiosteal sinus disease with air-fluid levels in both maxillary sinuse s. CONCLUSION: 1. Symmetric prominence of the tonsillar pillars bilaterally suggesting some tonsillar swelling. No s ignificant mucosal enhancement is seen. 2. There is coating of the mucosal surfaces of the oropharynx secondary to the patient's previous bar ium swallow study. 3. Degenerative changes in cervical spine. 4. Air-fluid levels in both maxillary sinuses. Raudel Santizo MD on November 21, 2016 at 13:08 Board Certified Radiologist. This report was verified electronically.
--- NOTE | 2016-11-21 13:46 | HHI.PR ---
Subjective Remarks Patient seen this morning around 1:30 AM. He says the sore throat continues. No nausea or vomiting. Continues nothing by mouth. Failed barium swallow Objective Vital Signs Date Time Temp Pulse Resp B/P Pulse Ox O2 Delivery O2 Flow Rate FiO2 11/21/16 12:00 98.5 90 20 94/61 99 11/21/16 09:19 Nasal Cannula 4.00 11/21/16 08:31 92 21 11/21/16 08:00 96.8 93 20 129/73 96 11/21/16 04:00 98.1 97 18 141/71 97 11/21/16 00:00 98.5 98 18 133/61 99 11/20/16 22:00 Nasal Cannula 4.00 11/20/16 20:31 98 21 11/20/16 20:00 98.2 94 18 137/75 91 11/20/16 19:00 123 11/20/16 16:00 97.7 97 18 109/63 97 I/O 11/20/16 11/20/16 11/20/16 11/21/16 11/21/16 11/21/16 07:00 15:00 23:00 07:00 15:00 23:00 Output Total 400 ml Balance -400 ml Output Urine Total 400 ml # Voids 2 1 4 Result Diagram: 11/21/1662411/21/16624 Objective Remarks GENERAL: Patient sitting up in bed. sitting up on couch in room as before. alert and oriented 3. SKIN: Warm and dry. HEAD: Normocephalic. EYES: No scleral icterus. No injection or drainage. NECK: Supple, trachea midline. No JVD. Patient still with off-white plaques on tongue. Appearance of thrush. CARDIOVASCULAR: Regular rate and rhythm without murmurs, gallops, or rubs. RESPIRATORY: Breath sounds equal bilaterally. No accessory muscle use. GASTROINTESTINAL: Abdomen soft, non-tender, nondistended. MUSCULOSKELETAL: No cyanosis, or edema. BACK: Nontender without obvious deformity. No CVA tenderness. A/P Assessment and Plan 11/21 -Patient failed barium swallow. Oropharyngeal dysphagia. -CT neck with tonsillar hypertrophy. -ENT evaluation. Possible Dobbhoff versus PEG tube placement. -Discussed with pulmonology. Patient would benefit from psychiatry evaluation. //Sepsis. Acute. Improving. //Pneumonia with acute respiratory failure requiring intubation. -Patient successfully extubated 11/12. Has been stable on room air but decompensated on 11/16/16. New Fevers. - Improving. Infectious disease following. Currently on cefepime, continue Levaquin. - Appreciate pulmonology following. -Continue Duonebs QID and PRN -11/19. Repeat sputum culture with normal respiratory johnny. Continue antibiotics. -11/20. Respiratory status continues improving. Continue antibiotics. Appreciate pulmonology assistance -11/20. Respiratory status stable. Likely was secondary to aspiration. //Acute encephalopathy: Resolving. Secondary to above. Head CT unremarkable except for Sinus disease. -11/19. Decrease Ativan 2 mg IV every 4 hours as needed for agitation to 1 mg IV as needed every 6 hours. -11/20. Somnolence appears improved on decreased dose of Ativan. Continue monitor. -11/21. Discussed with pulmonology. Patient's family reports the patient became altered in the past on narcotics. We'll avoid narcotics or any further sedation. //Dysphagia: //Odynophagia //Suspected Nahomy esophagitis -11/20. Start fluconazole, as well as nystatin swish and swallow. Barium swallow ordered. GI evaluation appreciated. Continue to monitor. -11/21. Continue fluconazole. Failed barium swallow. Tonsillar hypertrophy on CT. ENT consultation. Possible NG tube versus PEG tube for feeding. Appreciate GI assistance. //History of bilateral PE in August 2016. CTA negative on this admission. -Continue Xarelto 15 mg BID //COPD Exacerbation -Continue Antibiotics as above - Continue Solu-Medrol - Appreciate Pulmonology assistance. //Ischemic heart disease, HTN, HLD -Continue losartan. Metoprolol 25 BID, 81 mg daily aspirin for abnormal Lexiscan below/and atorvastatin 20 mg daily for dyslipidemia. - Lexiscan revealed large fixed defects inferior lateral wall and apex. Intermediate 1-3% - ECHO with EF of 50-55%, -11/20. Vital signs stable. Patient does have some mild tachycardia from not being able to swallow metoprolol. Continue to monitor. Transfer to ICU or CIC if needs IV metoprolol. -11/21. Tachycardia appears to have resolved. Vital signs stable. Hold by mouth metoprolol. //MIRNA. Resolved. Continue IV fluids //Type 2 DM - Patient had an episode of Hypoglycemia. -11/20. Patient with another episode of hyperglycemia. Patient nothing by mouth for dysphasia. Hold Levemir. D10 1/2ns at 20 miles per hour. //Sinusitis/Mastoiditis seen on CT - On antibiotics as above. //Diarrhea. - C Diff and Hemoccult neg. Abd CT shows Diverticulosis and retained stool. DVT PPx: Xarelto, SCDs GI prophylaxis: PPI Discharge Planning patient is currently nothing by mouth. Awaiting further evaluation for dysphasia ENT evaluation pending. physical therapy recommends rehabilitation Patient has apparently been accepted at [facility]. Crow Patel MD Nov 21, 2016 13:46
--- NOTE | 2016-11-21 15:15 | HHI.IDPN ---
Note Infectious Disease Note Patient is calm. Has some SOB with exertion. Afebrile. Parents at bedside. No other complaints. Calm. PAST MEDICAL HISTORY: 1. Hypertension. 2. Diabetes mellitus. 3. Diabetic neuropathy. 4. Hyperlipidemia. 5. History of CVA with residual left-sided weakness. 6. Carpal tunnel syndrome. 7. Left rotator cuff and shoulder surgery. 8. Left hip surgery. 9. Left clavicle repair with plate and screws. ALLERGIES: NO KNOWN DRUG ALLERGIES. MEDICATIONS: 1. Levaquin. 2. Fluconazole. SOCIAL HISTORY: No tobacco use. No alcohol. No illicit drugs. FAMILY HISTORY: Unable to obtain. OBJECTIVE: Vital Signs Date Time Temp Pulse Resp B/P Pulse Ox O2 Delivery O2 Flow Rate FiO2 11/21/16 12:00 98.5 90 20 94/61 99 11/21/16 09:19 Nasal Cannula 4.00 11/21/16 08:31 92 21 11/21/16 08:00 96.8 93 20 129/73 96 11/21/16 04:00 98.1 97 18 141/71 97 11/21/16 00:00 98.5 98 18 133/61 99 11/20/16 22:00 Nasal Cannula 4.00 11/20/16 20:31 98 21 11/20/16 20:00 98.2 94 18 137/75 91 11/20/16 19:00 123 11/20/16 16:00 97.7 97 18 109/63 97 11/20/16 11/20/16 11/21/16 15:00 23:00 07:00 Output Total 400 ml Balance -400 ml Output Urine Total 400 ml # Voids 1 4 Laboratory Tests Test 11/20/16 11/21/16 06:42 06:25 White Blood Count 9.5 TH/MM3 9.7 TH/MM3 Red Blood Count 4.07 MIL/MM3 3.96 MIL/MM3 Hemoglobin 11.6 GM/DL 11.2 GM/DL Hematocrit 35.8 % 34.8 % Mean Corpuscular Volume 88.0 FL 87.8 FL Mean Corpuscular Hemoglobin 28.4 PG 28.4 PG Mean Corpuscular Hemoglobin 32.3 % 32.3 % Concent Red Cell Distribution Width 14.8 % 14.7 % Platelet Count 191 TH/MM3 174 TH/MM3 Mean Platelet Volume 9.4 FL 9.2 FL Neutrophils (%) (Auto) 73.7 % 77.9 % Lymphocytes (%) (Auto) 14.9 % 12.4 % Monocytes (%) (Auto) 8.8 % 6.8 % Eosinophils (%) (Auto) 2.2 % 2.7 % Basophils (%) (Auto) 0.4 % 0.2 % Neutrophils # (Auto) 7.0 TH/MM3 7.5 TH/MM3 Lymphocytes # (Auto) 1.4 TH/MM3 1.2 TH/MM3 Monocytes # (Auto) 0.8 TH/MM3 0.7 TH/MM3 Eosinophils # (Auto) 0.2 TH/MM3 0.3 TH/MM3 Basophils # (Auto) 0.0 TH/MM3 0.0 TH/MM3 CBC Comment DIFF FINAL DIFF FINAL Differential Comment Laboratory Tests Test 11/20/16 11/21/16 06:42 06:25 Sodium Level 143 MEQ/L 142 MEQ/L Potassium Level 3.9 MEQ/L 3.9 MEQ/L Chloride Level 107 MEQ/L 105 MEQ/L Carbon Dioxide Level 28.2 MEQ/L 28.1 MEQ/L Anion Gap 8 MEQ/L 9 MEQ/L Blood Urea Nitrogen 21 MG/DL 25 MG/DL Creatinine 0.88 MG/DL 1.02 MG/DL Estimat Glomerular Filtration 89 ML/MIN 75 ML/MIN Rate Random Glucose 147 MG/DL 182 MG/DL Calcium Level 8.8 MG/DL 8.5 MG/DL Phosphorus Level 3.2 MG/DL Magnesium Level 2.1 MG/DL Albumin 2.4 GM/DL IMAGING: Last [address] 11/21/16 0000 Signed Impressions: Service Date/Time: Monday, November 21, 2016 12:02 - CONCLUSION: 1. Symmetric prominence of the tonsillar pillars bilaterally suggesting some tonsillar swelling. No significant mucosal enhancement is seen. 2. There is coating of the mucosal surfaces of the oropharynx secondary to the patient's previous barium swallow study. 3. Degenerative changes in cervical spine. 4. Air-fluid levels in both maxillary sinuses. Raudel Santizo MD Modified Barium Swallow 11/21/16 0000 Signed Impressions: Service Date/Time: Monday, November 21, 2016 00:00 - CONCLUSION: Aspiration of multiple consistencies of barium contrast. Kush Vigil MD Chest X-Ray 11/17/16 0000 Signed Impressions: Service Date/Time: Thursday, November 17, 2016 08:56 - CONCLUSION: 1. Improved aeration lung staley compared to the prior exam. 2. Mild left lower lung atelectasis. Julián Perez MD Head CT 11/15/16 0000 Signed Impressions: Service Date/Time: October 23:57 - CONCLUSION: 1. No acute intracranial abnormalities. Bilateral maxillary and right sphenoid sinus disease. Moy Pederosn MD Abdomen/Pelvis CT 11/15/16 0000 Signed Impressions: Service Date/Time: October 16:40 - CONCLUSION: Colonic diverticulosis without evidence of active inflammatory disease. Moderate to large amount retained stool. No evidence of obstruction, ileus, free air or abnormal fluid collections. Cholelithiasis. Yousif Van MD Upper Extremity Ultrasound 11/10/16 0000 Signed Impressions: Service Date/Time: Thursday, November 10, 2016 13:28 - CONCLUSION: 1. Nonocclusive thrombus in the right internal jugular vein. 2. Occlusive thrombus in the left cephalic vein. Guerrero Johnston MD Lower Extremity Ultrasound 11/10/16 0000 Signed Impressions: Service Date/Time: Thursday, November 10, 2016 13:04 - CONCLUSION: No DVT. Guerrero Johnston MD Brain MRI 11/09/16 0000 Signed Impressions: Service Date/Time: Wednesday, November 09, 2016 09:48 - CONCLUSION: 1. No acute infarct or other acute intracranial abnormality. 2. Mild, nonspecific chronic white matter signal changes. 3. Pansinusitis and apparent bilateral mastoiditis. Guerrero Cummings MD Skull X-Ray 11/08/16 0000 Signed Impressions: Service Date/Time: October 16:26 - CONCLUSION: No MRI incompatible foreign body is identified. Guerrero Cummings MD Myocardial Perfusion Scan Nuc Med 11/02/16 0600 Signed Impressions: Service Date/Time: Wednesday, November 02, 2016 09:10 - CONCLUSION: 1. Large sized moderate severity fixed defect involving the inferolateral wall including the apex. Ischemia is not excluded. No wall motion abnormalities are identified RISK CATEGORY: Intermediate (1-3%% Annual Mortality Rate) Ben Aden MD CT Angiography 10/30/16 0000 Signed Impressions: Service Date/Time: Sunday, October 30, 2016 14:54 - CONCLUSION: The multiple pulmonary emboli seen in August have completely resolved. I don't see any residual emboli on today's exam. There is new airspace disease in the left upper lobe possible pneumonia. Garett Layton MD Abdomen X-Ray 10/30/16 0000 Signed Impressions: Service Date/Time: Sunday, October 30, 2016 14:47 - CONCLUSION: Normal examination. Bony prominence of the right pubic symphysis Garett Layton MD PHYSICAL EXAMINATION: GENERAL: Awake. Restless. HEENT: Head atraumatic. Extraocular movements appear grossly intact. No icterus. Oropharynx with no visible lesions. NECK: The neck is supple. LUNGS: Rhonchi at the r. base and decreased breath sounds on the left. HEART: Normal S1 and S2. ABDOMEN: Bowel sounds diminished, soft, not tender. No palpable masses. EXTREMITIES: No clubbing or cyanosis or edema. SKIN: Maculopapular erythematous rash at the right elbow and right humerus and also in an area of the left forearm and the posterior left elbow and excoriated lesions at the posterior distal right tibia and anterior left fibula. IMPRESSION: 1. Acute hypoxemic respiratory failure. Better. 2. Sepsis indicated by tachycardia, fever, leukocytosis, tachypnea. 3. Pneumonia likely aspiration versus HCAP. 4. Sinusitis based on CT scan involving bilateral maxillary and right sphenoid. 5. Skin rash. ? Eczema. RECOMMENDATIONS: 1. Continue Levaquin another 5 days. 2. Monitor clinical status. John Gregg MD Nov 21, 2016 15:15
--- NOTE | 2016-11-21 16:10 | HHI.GIFU ---
GI Follow-up Note Consult Follow-up D/W patient findings of MBS and recommendations for NPO status. D/W patient EGD with PEG tube placement, procedure, risks, benefits. He initially refused, but then was agreeable after all of his questions were answered. Entered by: Brielle Judge Nov 21, 2016 16:10
[2016-11-21] MEDS: FLUCONAZOLE 200 MG PREMIX BAG 100 ML IV SCH (17:20)
[2016-11-21] MEDS: LORazepam 2 MG/ML VIAL IV PUSH PRN (21:10)
[2016-11-21] MEDS: D5-1/2 NS + KCL 10 MEQ INJ 1,000 ML IV SCH (21:11)
--- NOTE | 2016-11-21 22:20 | MB ---
cc: MOHINDER HOROWITZ MD DATE OF CONSULTATION 11/21/2016 REASON FOR CONSULTATION Dysphasia. HISTORY OF THE PRESENT ILLNESS The patient is a pleasant male with a history of dysphagia. He was admitted initially for pneumonia. He has a history of stroke 6 years ago and the medical history significant for hypertension, diabetes and neuropathy as well as pulmonary embolism in August 1016. He was recently intubated earlier this month following worsening respiratory distress on November 05, and extubated on November 12. Recent modified barium swallow performed this hospital stay was consistent with profound dysphagia with kacey aspiration of pudding consistency and thickened honey consistency. He coughed the aspiration which do not clear material from it airway. He was unable to clear the material from his vallecula after multiple swallows. Earlier today the patient had consented to having a G tube placement. Neck CT scan today was notable for a symmetrical prominence of tonsils. However, there was no mucosal enhancement. There was also notable coating of the mucosal surfaces in the oropharynx secondary to the patient's barium swallow and there was of note fluid in the sinuses as well. The patient notes that although he had a stroke six years ago his dysphagia symptoms began very recently within the last month or so when he started having the pneumonia and other issues associated with it. Of note he has recently been treated with antifungals for his likely thrush on his tongue and oropharynx. PHYSICAL EXAMINATION On examination today he is a pleasant male. He notes that he still has a sore throat. On examination he is noted to have mild inflammation of the tongue and oropharynx possibly related to oral candidiasis. A manual examination of the oropharynx did not reveal any abnormal masses including the tonsillar area. Of note the patient is claustrophobic but he was able to tolerate the examination. On flexible fiberoptic laryngoscopy the tonsils did not appear grossly enlarged on either side. There was some pooling of secretions in the hypopharynx. And the vocal cords appeared to be moving however, the visualization was somewhat obstructed with the pooling of secretions and with the patient's claustrophobia. Nasal examination was clear. I did not feel any lymph nodes on his neck that were pathologic. . ASSESSMENT The patient has dysphagia. He did note that he was getting a feeding tube placed tomorrow. Of note he does have a tobacco history, however, he did note that although he smoked quite consistently, he did stop roughly a year ago. Because of his dysphasia and his tobacco history, although not top on the differential, carcinoma cannot be ruled out with his medical history. I recommend that the home team order a PET CT scan to further evaluate any areas of concern in the oropharynx as well as the generalized region of the head and neck as per the patient's history. This should address the patient's sinus status as well with the active sinus fluid noted. If the nystatin is unable to relieve the patient's symptoms, a concoction of Magic Mouthwash should help as well. Although I am not sure what his formulary version of Magic Mouthwash has, typically it involves a nystatinm, steroid, tetracycline or another antibiotic as well as antihistamine such as Benadryl. Any version of this or something somewhat similar should be helpful as well. I will ask the home team to leave it to their discretion which version of Magic Mouthwash they would consider. I will likely not be able to have any other further recommendations until the patient has his PET CT scan. However, we will certainly be standing by to further assist as necessary. Thank you for this consultation. Mohinder Horowitz MD CCP/ROGER /8:37 PM /9:51 PM
[2016-11-21] MEDS ORDERED: HYDROmorphone HCL PF 1 MG/ML VIAL SQ ONE (23:00)
[2016-11-22] VITALS (11 sets, daily range): BP systolic 93–139; BP diastolic 57–84; PULSE 69–106; RESP 18; TEMP 97.1–98.6; O2SAT 87–100
[2016-11-22] MEDS: INSULIN ASPART SUPPLEMENTAL SCALE SQ SCH ×4 (00:16→18:16)
[2016-11-22] MEDS: D5-1/2 NS + KCL 10 MEQ INJ 1,000 ML IV SCH ×2 (02:40→22:51)
[2016-11-22] MEDS: LORazepam 2 MG/ML VIAL IV PUSH PRN (03:26)
[2016-11-22] MEDS ORDERED: ceFAZolin 2 GM PREMIX 50 ML IV SCH (05:45)
[2016-11-22] MEDS ORDERED: LEVOFLOXACIN 500 MG PREMIX INJ 100 ML IV ONE (06:00)
[2016-11-22] MEDS: TAMSULOSIN HCL 0.4 MG CAP PO SCH (09:00)
[2016-11-22] MEDS: OLANZapine 10 MG TAB PO SCH (09:00)
[2016-11-22] MEDS: LOSARTAN 50 MG TAB PO SCH (09:00)
[2016-11-22] MEDS: MAGNESIUM OXIDE 400 MG TAB PO SCH (09:00)
[2016-11-22] MEDS: NYSTATIN SUSP 500,000 U/5 ML CUP SWISH-SWAL SCH ×4 (09:00→21:06)
[2016-11-22] MEDS: SODIUM CHLORIDE 0.9% FLUSH 5 ML FLUSH FLUSH SCH ×2 (09:00→21:05)
[2016-11-22] MEDS: POLYETHYLENE GLYCOL 17 GM PKG PO SCH (09:00)
[2016-11-22] MEDS: SENNOSIDES 8.6 MG TAB PO SCH ×2 (09:00→21:07)
[2016-11-22] MEDS: PANTOPRAZOLE SOD 40 MG DELAYED RELEASE TAB PO SCH (09:00)
[2016-11-22] MEDS: METOPROLOL TARTRATE 25 MG TAB PO SCH ×2 (09:00→21:06)
[2016-11-22] MEDS: RESP: ALBUTEROL 2.5 MG/IPRATROPIUM 0.5 MG NEB (SCH) NEB ×3 (09:02→20:01)
[2016-11-22 09:09] LABS: AUTOMATED NEUTROPHIL # 10.5 TH/MM3 (1.8-7.7); BASOPHIL # 0.1 TH/MM3 (0-0.2); BASOPHIL % 0.8 % (0.0-2.0); EOSINOPHIL # 0.3 TH/MM3 (0-0.4); EOSINOPHIL % 2.3 % (0.0-4.0); HEMATOCRIT 33.9 % (39.0-51.0); HEMO FLAGS DIFF FINAL; LYMPH % 11.6 % (9.0-44.0); LYMPHOCYTE # 1.5 TH/MM3 (1.0-4.8); MEAN CELL VOLUME 88.2 FL (80.0-100.0); MEAN CORPUSCULAR HEMOGLOBIN 28.9 PG (27.0-34.0); MEAN CORPUSCULAR HGB CONC 32.7 % (32.0-36.0); MONO % 5.2 % (0.0-8.0); NEUT % 80.1 % (16.0-70.0); PLATELET COUNT 186 TH/MM3 (150-450); RED BLOOD COUNT 3.84 MIL/MM3 (4.50-5.90); RED CELL DISTRIBUTION WIDTH 15.2 % (11.6-17.2); WHITE BLOOD COUNT 13.1 TH/MM3 (4.0-11.0)
[2016-11-22 09:11] LABS: INTERNATIONAL NORMALIZED RATIO 1.3 RATIO
[2016-11-22 09:19] LABS: BICARBONATE 28.1 MEQ/L (21.0-32.0); POTASSIUM 4.1 MEQ/L (3.5-5.1)
--- NOTE | 2016-11-22 11:51 | PD.CONS ---
Provisional Diagnosis Admission Date Oct 30, 2016 at 13:40 [place] I. 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 Deferred [place] III. COPD, HTN, DM, CVA with left-sided weakness, pneumonia, sepsis [place] IV. History of multiple chronic medical illnesses [place] V. 55 History of Present Illness Service Psychiatry Consult Requested By Primary Care Physician [facility] HPI The patient is a 55-year-old man, , domiciled in [place], employed, without any previous psychiatric history, no previous psychiatric hospitalizations, no previous use of psychotropics, no suicidal attempts, significant history of diabetes mellitus, COPD, hypertension, CVA 6 years ago with residual left-sided weakness and mild cognitive impairment, who was hospitalized due to pneumonia, acute encephalitis and sepsis. Patient consulted to psychiatry due to erratic behavior. As per nurse in charge, Teresa, patient has been presenting of behavior, he has been acting bizarre, sometimes disorganized, trying to remove his IV pump, wandering inside the room and talking nonsense. On psychiatric evaluation patient was found sleeping, easily arousable, calm, cooperative and pleasant. Some difficulty talking noted due to hoarseness. Patient says that he has been in the hospital now for a long time due to pneumonia. Patient says that moment he has been sad "is not easy to be in the hospital for such a long time", but he endorses current good mood, motivation to continue medical care and get better and be discharged back to his house into his job. Patient says that at moments he has had thoughts of giving up "but I lost my parents, and I have a lot of amy in God". He denies suicidal or homicidal ideation, he denies visual and auditory hallucinations. He denies anhedonia, hopelessness, helplessness, worthlessness. At the moment of this evaluation the patient is logical, coherent and relevant, he is fully oriented 3, without any visible confusion, delirium, fluctuation of consciousness, but he does present some attention deficit, is speech latency, and mild thought blocking. 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 During this evaluation no agitation, no aggressive behavior have been observed. Patient denies the use of drugs and alcohol. Review of Systems Constitutional: COMPLAINS OF: Fatigue, DENIES: Diaphoretic episodes, Fever, Weight gain, Weight loss, Chills, Dizziness, Change in appetite, Night Sweats Endocrine: DENIES: Heat/cold intolerance, Polydipsia, Polyuria, Polyphagia Eyes: DENIES: Blurred vision, Diplopia, Eye inflammation, Eye pain, Vision loss , Photosensitivity, Double Vision Ears, nose, mouth, throat: DENIES: Tinnitus, Hearing loss, Vertigo, Nasal discharge, Oral lesions, Throat pain, Hoarseness, Ear Pain, Running Nose, Epistaxis, Sinus Pain, Toothache, Odynophagia Respiratory: DENIES: Apneas, Cough, Snoring, Wheezing, Hemoptysis, Sputum production, Shortness of breath Cardiovascular: DENIES: Chest pain, Palpitations, Syncope, Dyspnea on Exertion , PND, Lower Extremity Edema, Orthopnea, Claudication Gastrointestinal: COMPLAINS OF: Anorexia (difficulty swallowing), DENIES: Abdominal pain, Black stools, Bloody stools, Constipation, Diarrhea, Nausea, Vomiting, Difficulty Swallowing Musculoskeletal: DENIES: Joint pain, Muscle aches, Stiffness, Joint Swelling, Back pain, Neck pain Integumentary: DENIES: Abnormal pigmentation, Nail changes, Pruritus, Rash Hematologic/lymphatic: DENIES: Bruising, Lymphadenopathy Immunologic/allergic: DENIES: Eczema, Urticaria Neurologic: DENIES: Abnormal gait, Headache, Localized weakness, Paresthesias, Seizures, Speech Problems, Tremor, Poor Balance Psychiatric: DENIES: Anxiety, Confusion, Mood changes, Depression, Hallucinations, Agitation, Suicidal Ideation, Homicidal Ideation, Delusions Past Family Social History Coded Allergies: Morphine (Verified Allergy, Mild, 11/21/16) Active Scripts Rivaroxaban (Xarelto)15 Mg Tab15 Mg PO BID #42 TAB Prov:Praveen Salter MD R1 08/30/[address] (Aspirin EC)81 Mg Tabdr81 Mg PO DAILY #30 TAB Prov:Dimitrios Turk MD 08/06/16 Reported Medications Magnesium Oxide 400 Mg Pgg573 Mg PO DAILY Ref 0 09/14/16 Pantoprazole 40 Mg Tab40 Mg PO DAILY #30 TAB Ref 0 08/28/16 Losartan 25 Mg Tab50 Mg PO DAILY #30 TAB Ref 0 08/01/16 Atorvastatin 20 Mg Tab20 Mg PO DAILY #30 TAB Ref 0 08/01/16 Pregabalin (Lyrica)75 Mg Cap75 Mg PO BID #60 CAP Ref 0 08/01/16 Venlafaxine ER 24 HR 75 Mg Cap75 Mg PO TID #30 CAP Ref 0 08/01/16 Insulin Glargine Inj (Lantus Inj)1,000 Unit/10 Ml Vial45 Units SQ BID Ref 0 08/01/16 Insulin Aspart Inj (Novolog Inj)1,000 Unit/10 Ml Vial SQ DIRECTED #10 ML Ref 0 Sliding Scale as directed. 08/01/16 Metoprolol Tartrate 25 Mg Tab25 Mg PO BID #60 TAB Ref 0 08/01/16 Current Medications Medications (Trade) Dose Ordered Sig/Dario Route Start Time Stop Time Status Last Admin (Ecotrin Ec) 81 mg DAILY PO 10/31/16 09:00 Hold 11/15/16 09:29 (Lipitor) 20 mg DAILY PO 10/31/16 09:00 Hold 11/15/16 09:28 (Mag-Ox) 400 mg DAILY PO 10/31/16 09:00 11/20/16 08:38 (Lyrica) 75 mg BID PO 10/30/16 21:00 Hold 11/15/16 20:42 (NS Flush) 2 ml UNSCH PRN FLUSH 10/30/16 14:30 10/31/16 01:09 (NS Flush) 2 ml BID FLUSH 10/30/16 21:00 11/21/16 21:11 (Zofran Inj) 4 mg Q6H PRN IVP 10/30/16 14:30 11/19/16 08:15 (Dulcolax Supp) 10 mg DAILY PRN OR 10/30/16 14:30 (Colace) 100 mg Q12H PO 10/30/16 14:30 Hold 11/12/16 00:53 (Narcan Inj) 0.4 mg UNSCH PRN IV 10/30/16 14:30 (Robitussin Ac 200-20 Mg/10 ml Liq) 10 ml Q4H PRN PO 10/30/16 16:00 Hold 11/15/16 06:06 (Roxicodone) 5 mg Q4H PRN PO 10/30/16 15:00 11/21/16 18:20 (Roxicodone) 10 mg Q4H PRN PO 10/30/16 15:00 11/21/16 21:09 (Flomax) 0.4 mg DAILY PO 10/31/16 11:30 11/20/16 08:37 (Vasotec Inj) 1.25 mg Q6H PRN IV PUSH 10/31/16 11:30 11/10/16 01:15 (Haldol Inj) 5 mg Q6H PRN IV PUSH 11/05/16 11:30 11/18/16 23:38 (NovoLOG SUPPLEMENTAL SCALE) 1 Q6HR SQ 11/06/16 12:00 11/22/16 00:16 (D50w (Vial) Inj) 25 ml UNSCH PRN IV 11/06/16 11:30 11/20/16 06:35 (Glucagon Inj) 1 mg UNSCH PRN IM/SQ 11/06/16 11:30 (Effexor Xr) 150 mg DAILY PO 11/11/16 09:00 Hold 11/15/16 09:00 (Senokot) 17.2 mg Q12HR PO 11/10/16 21:00 11/21/16 21:09 (Miralax) 17 gm DAILY PO 11/11/16 09:00 11/20/16 08:53 (Xarelto) 15 mg BID PO 11/12/16 09:00 Hold 11/21/16 21:10 (Cozaar) 50 mg DAILY PO 11/15/16 09:00 11/19/16 08:16 (Protonix) 40 mg DAILY PO 11/15/16 09:00 11/20/16 08:37 (Lopressor) 50 mg BID PO 11/16/16 09:00 11/21/16 21:09 (Tylenol Supp) 650 mg Q6H PRN RECTAL 11/16/16 16:45 11/18/16 23:43 (Levemir Inj) 12 units Q12HR SQ 11/17/16 21:00 Hold 11/19/16 21:00 (ZyPREXA) 10 mg DAILY PO 11/19/16 09:00 11/20/16 09:00 Lorazepam 1 mg 1 mg Q6H PRN IV PUSH 11/19/16 17:00 11/22/16 03:26 (Diflucan 200 Mg Premix Bag) 100 ml @ 100 mls/hr Q24H IV 11/20/16 16:00 11/21/16 17:20 (Mycostatin Liq) 5 ml QID SWISH-SWAL 11/20/16 18:00 11/21/16 21:08 Levofloxacin 500 mg 500 mg DAILY@06 PO 11/21/16 06:00 Hold (D5-1/2 NS + KCl 10 Meq Inj) 1,000 ml @ 60 mls/hr [id number] IV 11/21/16 10:00 11/21/16 21:11 Family History He denies Social History Patient was born and raised in [place], he has been living in [place] for one year, he lives in [place] alone, he is , 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, his highest level of education is 12th grade Physical Exam Vital Signs Vital Signs Date Time Temp Pulse Resp B/P Pulse Ox O2 Delivery O2 Flow Rate FiO2 11/22/16 09:04 87 21 11/22/16 08:34 98.2 92 18 93/57 11/21/16 17:40 Nasal Cannula 2.00 I/O 11/21/16 11/21/16 11/22/16 08:00 16:00 00:00 Intake Total 240 ml 480 ml Balance 240 ml 480 ml Mental Status Examination Appearance man, age appearing, in [facility], he is calm, cooperative and pleasant Speech: Other (hoarseness noticed) Orientation: x3 Memory: Unremarkable Thought Process: Logical Thought Content: Unremarkable Hallucination Type: None Attention and Concentration: Abnormal Suicidal Ideation: No Previous Suicide Attempts: No Homicidal Ideation: No Previous Homicide Attempts: No Judgement: WNL Affect: Good Mood: Appropriate Motor Activity: Normal gait Assessment & Plan Problem List: (1) Mild neurocognitive disorder Assessment & Plan: At the moment of this evaluation patient is calm, cooperative and pleasant, he does not present any significant, concerning or acute or objective or subjective symptomatology of depression, anxiety, bao or psychosis. Patient endorses mild sadness mostly secondary to acute medical conditions, but he denies hopelessness, helplessness, worthlessness, anhedonia, and he seems to be future oriented and motivated to continue medical treatment and get better. Patient denies suicidal or homicidal ideation, he denies visual and auditory hallucinations. No delirium, confusion, gross cognitive impairment observed at this moment. He does percent problems with attention and thought speed which seems to be a residual symptoms of previous stroke. Recent episode of erratic behavior, agitation, and nonsensical thought and speech could be secondary to delirium due to underlying medical conditions. I agree with continuing olanzapine at bedtime and Haldol 5 mg IM when necessary aggressive behavior and agitation. But, the patient does not meet criteria for psychiatric admission at this moment. We'll follow-up. ICD Code: G31.84 Assessment & Plan Estimated LOS: Arnie Sheppard MD Nov 22, 2016 11:51
[2016-11-22] MEDS ORDERED: PROPOFOL 200 MG/20 ML AMP IV ONE (13:39)
--- NOTE | 2016-11-22 14:17 | GIPROC ---
[facility] [address] [facility]. [facility], [id number] EGD WITH PEG PROCEDURE REPORT EXAM DATE: 11/22/2016 PATIENT NAME: Vinicio Julio MR#: [id number] BIRTHDATE: 1960 ATTENDING: Sarah De Souza MD ORDER #: [id number] PROVIDER NETWORK MANAGER: Bernardino Burger and Venkata Oliveira STATUS: inpatient INDICATIONS: The patient is a 55 yr old male here for an EGD with PEG due to dysphagia PROCEDURE PERFORMED: EGD, diagnostic EGD with biopsy MEDICATIONS: None and Per Anesthesia. TOPICAL ANESTHETIC: none CONSENT: The patient understands the risks and benefits of the procedure and understands that these risks include, but are not limited to: sedation, allergic reaction, infection, perforation and/or bleeding. Alternative means of evaluation and treatment include, among others: physical exam, x-rays, and/or surgical intervention. The patient elects to proceed with this endoscopic procedure. medical equipment was checked for proper function. Hand hygiene and appropriate measures for infection prevention was taken. After the risks, benefits and alternatives of the procedure were thoroughly explained, Informed consent was verified, confirmed and timeout was successfully executed by the treatment team. The patient was anesthetized with topical anesthesia and the Pentax [id number] endoscope was introduced through the mouth and advanced to the second portion of the duodenum. The instrument was slowly withdrawn as the mucosa was fully examined. The stomach was then inflated with air, and by a combination of transillumination and manual palpation, the site for the gastrostomy tube placement was selected and marked on the anterior abdominal wall. The skin of the anterior abdomen was surgically prepped and draped with sterile towels. Utilizing strict sterile technique, the selected site was then anesthetized with 1% xylocaine by injection into the skin and subcutaneous tissue. A 1 cm incision was made through the skin and subcutaneous tissue, and the needle/cannula assembly was then passed through the abdominal wall and through the anterior wall of the stomach, maintaining visualization with the endoscope. A snare device previously placed through the instrument channel was then opened and placed around the cannula, the needle was removed, and the insertion wire was passed through the cannula and into the stomach lumen. The snare was then loosened from the cannula, and repositioned to snare the insertion wire. The snare was then pulled up to the endoscope distal tip, and the scope was then withdrawn bringing with it the snare and insertion wire. The insertion wire was then released from the snare, and then loop-attached to the gastrostomy tube. Using the "pull technique", the G-tube was then pulled into place by traction on the insertion wire at the abdominal wall end. The G-tube insertion site was then cleansed once again, and the external bolster was placed over the tube to secure it to the abdominal wall. A sterile dressing was then applied, and the procedure terminated. a hiatal hernia The gastroscope was then slowly withdrawn and removed. ADVERSE EVENT: There were no complications. IMPRESSIONS: A hiatal hernia esophagitis distal esophagus-biopsy gastritis antrum-biopy edematous oropharynx RECOMMENDATIONS: 1. Anti-reflux regimen 2. Continue PPI 3. fu peg instructions REPEAT EXAM: egd pending pathology report Sarah De Souza MD eSigned: Sarah De Souza MD 11/22/2016 2:16 PM cc: PATIENT NAME: Vinicio Julio MR#: [id number]
[2016-11-22] MEDS: FLUCONAZOLE 200 MG PREMIX BAG 100 ML IV SCH (16:27)
[2016-11-22] MEDS ORDERED: PILL SPLITTER OTHER PRN (18:15)
--- NOTE | 2016-11-22 23:42 | HHI.PR ---
Subjective Remarks Patient seen this today around 5 PM. Status post PEG tube. Patient requests pain medication for PEG tube pain. Denies any shortness of breath. Objective Vital Signs Date Time Temp Pulse Resp B/P Pulse Ox O2 Delivery O2 Flow Rate FiO2 11/22/16 21:20 90 Room Air 11/22/16 20:08 97.7 98 18 120/71 90 11/22/16 20:02 91 21 11/22/16 16:00 97.8 106 18 131/65 92 11/22/16 14:21 88 16 128/75 100 11/22/16 14:11 91 16 128/75 100 11/22/16 14:01 98.4 92 16 127/73 100 11/22/16 13:30 97.1 95 18 110/61 92 11/22/16 12:00 97.1 95 18 110/61 92 11/22/16 09:04 87 21 11/22/16 08:34 98.2 92 18 93/57 92 11/22/16 04:20 90 11/22/16 04:00 97.8 72 18 139/84 100 11/22/16 00:00 98.2 69 18 130/73 98 I/O 11/21/16 11/21/16 11/21/16 11/22/16 11/22/16 11/22/16 07:00 15:00 23:00 07:00 15:00 23:00 Intake Total 240 ml 480 ml 246 ml 500 ml 952 ml Balance 240 ml 480 ml 246 ml 500 ml 952 ml Intake Oral 240 ml 480 ml IV Total 246 ml 952 ml Other 500 ml # Voids 4 4 3 2 2 # Bowel Movements 1 Result Diagram: 11/22/16 0749 11/22/16 0749 Objective Remarks GENERAL: Patientsleeping, wakes up for exam. sitting up on edge of bed.. alert and oriented 3. SKIN: Warm and dry. HEAD: Normocephalic. EYES: No scleral icterus. No injection or drainage. NECK: Supple, trachea midline. No JVD. CARDIOVASCULAR: Regular rate and rhythm without murmurs, gallops, or rubs. RESPIRATORY: Breath sounds equal bilaterally. No accessory muscle use. GASTROINTESTINAL: Abdomen soft, non-tender, nondistended. PEG tube in place left upper quadrant. Dressed. clean, dry,intact. MUSCULOSKELETAL: No cyanosis, or edema. BACK: Nontender without obvious deformity. No CVA tenderness. A/P Assessment and Plan Assessment and Plan 11/22 -status post PEG placement. Start tube feeds 11/23. -appreciate psychiatry, pulmonology, GI assistance. //Sepsis. Acute. Improving. //Pneumonia with acute respiratory failure requiring intubation. -Patient successfully extubated 11/12. Has been stable on room air but decompensated on 11/16/16. New Fevers. - Improving. Infectious disease following. Currently on cefepime, continue Levaquin. - Appreciate pulmonology following. -Continue Duonebs QID and PRN -11/19. Repeat sputum culture with normal respiratory johnny. Continue antibiotics. -11/20. Respiratory status continues improving. Continue antibiotics. Appreciate pulmonology assistance -11/20. Respiratory status stable. Likely was secondary to aspiration. = Continue antibiotics as per infectious disease. Levaquin stop date 11/26 //Acute encephalopathy: Resolving. Secondary to above. Head CT unremarkable except for Sinus disease. -11/19. Decrease Ativan 2 mg IV every 4 hours as needed for agitation to 1 mg IV as needed every 6 hours. -11/20. Somnolence appears improved on decreased dose of Ativan. Continue monitor. -11/21. Discussed with pulmonology. Patient's family reports the patient became altered in the past on narcotics. We'll avoid narcotics or any further sedation. //Dysphagia: //Odynophagia //Suspected Nahomy esophagitis -11/20. Start fluconazole, as well as nystatin swish and swallow. Barium swallow ordered. GI evaluation appreciated. Continue to monitor. -11/21. Continue fluconazole. Failed barium swallow. Tonsillar hypertrophy on CT. ENT consultation. Possible NG tube versus PEG tube for feeding. Appreciate GI assistance. 11/22. PEG tube placement. = Plan for tube feedings. //History of bilateral PE in August 2016. CTA negative on this admission. -Continue Xarelto 15 mg BID //COPD Exacerbation -Continue Antibiotics as above - Continue Solu-Medrol - Appreciate Pulmonology assistance. //Ischemic heart disease, HTN, HLD -Continue losartan. Metoprolol 25 BID, 81 mg daily aspirin for abnormal Lexiscan below/and atorvastatin 20 mg daily for dyslipidemia. - Lexiscan revealed large fixed defects inferior lateral wall and apex. Intermediate 1-3% - ECHO with EF of 50-55%, -11/20. Vital signs stable. Patient does have some mild tachycardia from not being able to swallow metoprolol. Continue to monitor. Transfer to ICU or CIC if needs IV metoprolol. -11/21. Tachycardia appears to have resolved. Vital signs stable. Hold by mouth metoprolol. = Continue metoprolol when able. Monitor vital signs. //MIRNA. Resolved. Continue IV fluids //Type 2 DM - Patient had an episode of Hypoglycemia. -11/20. Patient with another episode of hyperglycemia. Patient nothing by mouth for dysphasia. Hold Levemir. D10 1/2ns at 20 miles per hour. -11/22. Plan for restart tube feeds. Levemir and sliding scale. = Continue to monitor glucose and adjust as necessary. //Sinusitis/Mastoiditis seen on CT - On antibiotics as above. //Diarrhea. - C Diff and Hemoccult neg. Abd CT shows Diverticulosis and retained stool. //Intermittent delirium. Worsened by pain medications. Try to limit sedating medications. As needed lorazepam Appreciate psychiatry assistance. -olanzapine at night when tolerated. DVT PPx: Xarelto, SCDs GI prophylaxis: PPI Discharge Planning patient is currently nothing by mouth. Awaiting further evaluation for dysphasia ENT evaluation pending. physical therapy recommends rehabilitation Patient has apparently been accepted at [facility]. Crow Patel MD Nov 22, 2016 23:42
[2016-11-23] VITALS (8 sets, daily range): BP systolic 104–130; BP diastolic 56–71; PULSE 67–98; RESP 18–24; TEMP 97–100.4; O2SAT 92–93
[2016-11-23] MEDS: INSULIN ASPART SUPPLEMENTAL SCALE SQ SCH ×4 (06:00→17:26)
[2016-11-23 07:22] LABS: AUTOMATED NEUTROPHIL # 6.8 TH/MM3 (1.8-7.7); BASOPHIL % 0.4 % (0.0-2.0); EOSINOPHIL # 0.3 TH/MM3 (0-0.4); EOSINOPHIL % 3.6 % (0.0-4.0); HEMATOCRIT 34.4 % (39.0-51.0); HEMO FLAGS DIFF FINAL; LYMPH % 16.8 % (9.0-44.0); LYMPHOCYTE # 1.6 TH/MM3 (1.0-4.8); MEAN CELL VOLUME 89.7 FL (80.0-100.0); MEAN CORPUSCULAR HEMOGLOBIN 29.2 PG (27.0-34.0); MEAN CORPUSCULAR HGB CONC 32.6 % (32.0-36.0); MONO % 8.5 % (0.0-8.0); NEUT % 70.7 % (16.0-70.0); PLATELET COUNT 165 TH/MM3 (150-450); RED BLOOD COUNT 3.83 MIL/MM3 (4.50-5.90); WHITE BLOOD COUNT 9.6 TH/MM3 (4.0-11.0)
[2016-11-23 07:29] LABS: BICARBONATE 24.6 MEQ/L (21.0-32.0); MAGNESIUM 1.9 MG/DL (1.5-2.5); POTASSIUM 4.5 MEQ/L (3.5-5.1)
[2016-11-23] MEDS: RESP: ALBUTEROL 2.5 MG/IPRATROPIUM 0.5 MG NEB (SCH) NEB ×3 (08:21→19:42)
[2016-11-23] MEDS: SODIUM CHLORIDE 0.9% FLUSH 5 ML FLUSH FLUSH SCH ×2 (09:00→23:52)
[2016-11-23] MEDS: TAMSULOSIN HCL 0.4 MG CAP PO SCH (09:00)
[2016-11-23] MEDS: NYSTATIN SUSP 500,000 U/5 ML CUP SWISH-SWAL SCH ×5 (09:00→23:52)
[2016-11-23] MEDS: POLYETHYLENE GLYCOL 17 GM PKG PO SCH (09:00)
[2016-11-23] MEDS: OLANZapine 10 MG TAB PO SCH (09:08)
[2016-11-23] MEDS: PANTOPRAZOLE SOD 40 MG DELAYED RELEASE TAB PO SCH (09:08)
[2016-11-23] MEDS: SENNOSIDES 8.6 MG TAB PO SCH ×2 (09:08→23:51)
[2016-11-23] MEDS: LOSARTAN 50 MG TAB PO SCH (09:08)
[2016-11-23] MEDS: METOPROLOL TARTRATE 25 MG TAB PO SCH (09:08)
[2016-11-23] MEDS: MAGNESIUM OXIDE 400 MG TAB PO SCH (09:08)
[2016-11-23] MEDS: LORazepam 2 MG/ML VIAL IV PUSH PRN (16:19)
[2016-11-23] MEDS: FLUCONAZOLE 200 MG PREMIX BAG 100 ML IV SCH (16:20)
--- NOTE | 2016-11-23 17:07 | HHI.GIFU ---
GI Follow-up Note Consult Follow-up Subjective: Patient laying in bed comfortably, sleepy, tolerated tube feeding well He denies nausea, vomiting ,abdominal pain.We will change to bolus feeding instead of pump feeding Objective: PHYSICAL EXAMINATION: Vitals signs stable No fever Vital Signs Date Time Temp Pulse Resp B/P Pulse Ox O2 Delivery O2 Flow Rate FiO2 11/23/16 16:00 100.4 80 18 116/56 92 11/23/16 12:41 97.9 67 18 104/57 92 11/23/16 09:30 96 Room Air HEENT: Pupils round and reactive to light; normocephalic; atraumatic; no jaundice. Throat is clear. NECK: Neck is supple, no JVD, no lymphadenopathy. CHEST: Chest is clear to auscultation and percussion. CARDIAC: Regular rate and rhythm with no murmur gallop or rubs. ABDOMEN: Soft, nondistended, nontender; no hepatosplenomegaly; bowel sounds are present in all four quadrants, peg site ok EXTREMITIES: No clubbing, cyanosis, or edema. SKIN: Normal; no rash; no jaundice. DENSITOMETRIST: No focal deficits; alert and oriented times three, sleepy Available Data (labs, X- Rays, Procedues) : Laboratory Tests Test 11/22/16 11/23/16 07:49 06:32 White Blood Count 13.1 TH/MM3 9.6 TH/MM3 Red Blood Count 3.84 MIL/MM3 3.83 MIL/MM3 Hemoglobin 11.1 GM/DL 11.2 GM/DL Hematocrit 33.9 % 34.4 % Mean Corpuscular Volume 88.2 FL 89.7 FL Mean Corpuscular Hemoglobin 28.9 PG 29.2 PG Mean Corpuscular Hemoglobin 32.7 % 32.6 % Concent Red Cell Distribution Width 15.2 % 15.0 % Platelet Count 186 TH/MM3 165 TH/MM3 Mean Platelet Volume 10.3 FL 9.7 FL Neutrophils (%) (Auto) 80.1 % 70.7 % Lymphocytes (%) (Auto) 11.6 % 16.8 % Monocytes (%) (Auto) 5.2 % 8.5 % Eosinophils (%) (Auto) 2.3 % 3.6 % Basophils (%) (Auto) 0.8 % 0.4 % Neutrophils # (Auto) 10.5 TH/MM3 6.8 TH/MM3 Lymphocytes # (Auto) 1.5 TH/MM3 1.6 TH/MM3 Monocytes # (Auto) 0.7 TH/MM3 0.8 TH/MM3 Eosinophils # (Auto) 0.3 TH/MM3 0.3 TH/MM3 Basophils # (Auto) 0.1 TH/MM3 0.0 TH/MM3 CBC Comment DIFF FINAL DIFF FINAL Differential Comment Prothrombin Time 14.0 SEC Prothromb Time International 1.3 RATIO Ratio Sodium Level 140 MEQ/L 138 MEQ/L Potassium Level 4.1 MEQ/L 4.5 MEQ/L Chloride Level 105 MEQ/L 106 MEQ/L Carbon Dioxide Level 28.1 MEQ/L 24.6 MEQ/L Anion Gap 7 MEQ/L 7 MEQ/L Blood Urea Nitrogen 27 MG/DL 21 MG/DL Creatinine 1.22 MG/DL 1.01 MG/DL Estimat Glomerular Filtration 61 ML/MIN 76 ML/MIN Rate Random Glucose 121 MG/DL 119 MG/DL Calcium Level 8.6 MG/DL 8.7 MG/DL Phosphorus Level 2.4 MG/DL Magnesium Level 1.9 MG/DL Albumin 2.7 GM/DL ASSESSMENT/PLAN: severe oropharyngeal dysphagia -s/ peg aspiration pneumonia Recommendation abdominal binder change tf to bolus feeding speech therapy evaluation ppi-bid antireflux measures gi will sign off call us as needed It was a pleasure seeing Vinicio Julio. Thank you for this consult. Entered by: Sarah Sainz MD Nov 23, 2016 17:07
--- NOTE | 2016-11-23 23:33 | HHI.PR ---
Subjective Remarks Patient seen today around 11:30 AM. Patient reports pain at the PEG tube site is bothersome but tolerable. He denies any chest pain or shortness of breath. Discussed with nursing. Start tube feeds, free water flushes. Discontinue IV fluids. Objective Vital Signs Date Time Temp Pulse Resp B/P Pulse Ox O2 Delivery O2 Flow Rate FiO2 11/23/16 20:00 98.7 86 24 115/59 93 11/23/16 19:42 92 21 11/23/16 16:00 100.4 80 18 116/56 92 11/23/16 12:41 97.9 67 18 104/57 92 11/23/16 09:30 96 Room Air 11/23/16 08:39 98.0 80 18 130/71 92 11/23/16 08:22 93 Nasal Cannula 21 11/23/16 06:12 97.0 98 20 115/64 92 11/23/16 01:38 82 I/O 11/22/16 11/22/16 11/22/16 11/23/16 11/23/16 11/23/16 07:00 15:00 23:00 07:00 15:00 23:00 Intake Total 246 ml 500 ml 1052 ml Output Total 950 ml Balance 246 ml 500 ml 1052 ml -950 ml IV Total 246 ml 952 ml Other 500 ml 100 ml Output Urine Total 950 ml # Voids 2 2 2 # Bowel Movements 0 Result Diagram: 11/23/16 0632 11/23/16 0632 Objective Remarks GENERAL: sitting up on edge of bed.. alert and oriented 3. SKIN: Warm and dry. HEAD: Normocephalic. EYES: No scleral icterus. No injection or drainage. NECK: Supple, trachea midline. No JVD. CARDIOVASCULAR: Regular rate and rhythm without murmurs, gallops, or rubs. RESPIRATORY: Breath sounds equal bilaterally. No accessory muscle use. GASTROINTESTINAL: Abdomen soft, non-tender, nondistended. PEG tube in place left upper quadrant. Dressed. clean, dry,intact.no change. MUSCULOSKELETAL: No cyanosis, or edema. BACK: Nontender without obvious deformity. No CVA tenderness. A/P Assessment and Plan 11/23 -Start tube feeds, free water flushes. Discontinue IV fluids. possible discharge to SNF if tolerating tube feedstomorrow. //Sepsis. Acute. Improving. //Pneumonia with acute respiratory failure requiring intubation. -Patient successfully extubated 11/12. Has been stable on room air but decompensated on 11/16/16. New Fevers. - Improving. Infectious disease following. Currently on cefepime, continue Levaquin. - Appreciate pulmonology following. -Continue Duonebs QID and PRN -11/19. Repeat sputum culture with normal respiratory johnny. Continue antibiotics. -11/20. Respiratory status continues improving. Continue antibiotics. Appreciate pulmonology assistance -11/20. Respiratory status stable. Likely was secondary to aspiration. = Continue antibiotics as per infectious disease. Levaquin stop date 11/26 //Acute encephalopathy: Resolving. Secondary to above. Head CT unremarkable except for Sinus disease. -11/19. Decrease Ativan 2 mg IV every 4 hours as needed for agitation to 1 mg IV as needed every 6 hours. -11/20. Somnolence appears improved on decreased dose of Ativan. Continue monitor. -11/21. Discussed with pulmonology. Patient's family reports the patient became altered in the past on narcotics. We'll avoid narcotics or any further sedation. -11/22. Narcotics had be started for PEG tube pain. -11/23. Still with some confusion on pain meds. Continue to monitor. //Dysphagia: //Odynophagia //Suspected Nahomy esophagitis -11/20. Start fluconazole, as well as nystatin swish and swallow. Barium swallow ordered. GI evaluation appreciated. Continue to monitor. -11/21. Continue fluconazole. Failed barium swallow. Tonsillar hypertrophy on CT. ENT consultation. Possible NG tube versus PEG tube for feeding. Appreciate GI assistance. 11/22. PEG tube placement. = Tube feedings with free water flushes. //History of bilateral PE in August 2016. CTA negative on this admission. -Continue Xarelto. Held periprocedural he -11/23. Restart Xarelto. Follow-up with primary care //COPD Exacerbation -Continue Antibiotics as above - Continue Solu-Medrol - Appreciate Pulmonology assistance. //Ischemic heart disease, HTN, HLD -Continue losartan. Metoprolol 25 BID, 81 mg daily aspirin for abnormal Lexiscan below/and atorvastatin 20 mg daily for dyslipidemia. - Lexiscan revealed large fixed defects inferior lateral wall and apex. Intermediate 1-3% - ECHO with EF of 50-55%, -11/20. Vital signs stable. Patient does have some mild tachycardia from not being able to swallow metoprolol. Continue to monitor. Transfer to ICU or CIC if needs IV metoprolol. -11/21. Tachycardia appears to have resolved. Vital signs stable. Hold by mouth metoprolol. = Continue metoprolol when able. Monitor vital signs. //MIRNA. Resolved. Continue IV fluids //Type 2 DM - Patient had an episode of Hypoglycemia. -11/20. Patient with another episode of hyperglycemia. Patient nothing by mouth for dysphasia. Hold Levemir. D10 1/2ns at 20 miles per hour. -11/22. Plan for restart tube feeds. Levemir and sliding scale. = Continue to monitor glucose and adjust as necessary. //Sinusitis/Mastoiditis seen on CT - On antibiotics as above. //Diarrhea. - C Diff and Hemoccult neg. Abd CT shows Diverticulosis and retained stool. //Intermittent delirium. Worsened by pain medications. Try to limit sedating medications. As needed lorazepam Appreciate psychiatry assistance. -olanzapine at night when tolerated. DVT PPx: Jen Parrish GI prophylaxis: PPI Discharge Planning patient is currently nothing by mouth. Patient has been accepted at SNF.discharge to SNF 11/24 if tolerating tube feeds. Crow Patel MD Nov 23, 2016 23:33
[2016-11-23] MEDS: METOPROLOL TARTRATE 25 MG TAB G-TUBE SCH (23:51)
[2016-11-23] MEDS: RIVAROXABAN 15 MG TAB PEG SCH (23:51)
[2016-11-23] MEDS: INSULIN DETEMIR 100 UNITS/ML VIAL SQ SCH (23:52)
[2016-11-24] VITALS (8 sets, daily range): BP systolic 98–164; BP diastolic 55–86; PULSE 84–104; RESP 16–24; TEMP 97–99; O2SAT 93–97
[2016-11-24] MEDS: INSULIN ASPART SUPPLEMENTAL SCALE SQ SCH ×4 (06:00→21:14)
[2016-11-24 06:17] LABS: AUTOMATED NEUTROPHIL # 6.6 TH/MM3 (1.8-7.7); BASOPHIL # 0.1 TH/MM3 (0-0.2); BASOPHIL % 0.9 % (0.0-2.0); EOSINOPHIL # 0.3 TH/MM3 (0-0.4); EOSINOPHIL % 2.7 % (0.0-4.0); HEMATOCRIT 32.2 % (39.0-51.0); HEMO FLAGS DIFF FINAL; LYMPH % 17.8 % (9.0-44.0); LYMPHOCYTE # 1.7 TH/MM3 (1.0-4.8); MEAN CELL VOLUME 87.6 FL (80.0-100.0); MEAN CORPUSCULAR HEMOGLOBIN 29.6 PG (27.0-34.0); MEAN CORPUSCULAR HGB CONC 33.8 % (32.0-36.0); MONO % 7.6 % (0.0-8.0); PLATELET COUNT 191 TH/MM3 (150-450); RED BLOOD COUNT 3.68 MIL/MM3 (4.50-5.90); RED CELL DISTRIBUTION WIDTH 14.8 % (11.6-17.2); WHITE BLOOD COUNT 9.3 TH/MM3 (4.0-11.0)
[2016-11-24] MEDS: LEVOFLOXACIN 500 MG TAB G-TUBE SCH (06:26)
[2016-11-24 07:09] LABS: BICARBONATE 28.3 MEQ/L (21.0-32.0); MAGNESIUM 1.9 MG/DL (1.5-2.5); POTASSIUM 4.5 MEQ/L (3.5-5.1)
[2016-11-24] MEDS: METOPROLOL TARTRATE 25 MG TAB G-TUBE SCH ×2 (09:00→20:55)
[2016-11-24] MEDS: LOSARTAN 50 MG TAB PO SCH (09:00)
[2016-11-24] MEDS: POLYETHYLENE GLYCOL 17 GM PKG PO SCH (09:00)
[2016-11-24] MEDS: INSULIN DETEMIR 100 UNITS/ML VIAL SQ SCH ×2 (09:00→20:59)
[2016-11-24] MEDS: RESP: ALBUTEROL 2.5 MG/IPRATROPIUM 0.5 MG NEB (SCH) NEB ×3 (09:01→20:18)
[2016-11-24] MEDS: SENNOSIDES 8.6 MG TAB PO SCH ×2 (09:19→20:55)
[2016-11-24] MEDS: ATORVASTATIN 20 MG TAB G-TUBE SCH (09:19)
[2016-11-24] MEDS: PANTOPRAZOLE SOD 40 MG DELAYED RELEASE TAB PO SCH (09:20)
[2016-11-24] MEDS: ASPIRIN 81 MG CHEW TAB TUBE SCH (09:20)
[2016-11-24] MEDS: MAGNESIUM OXIDE 400 MG TAB G-TUBE SCH (09:20)
[2016-11-24] MEDS: OLANZapine 10 MG TAB G-TUBE SCH (09:22)
[2016-11-24] MEDS: RIVAROXABAN 15 MG TAB PEG SCH (09:22)
[2016-11-24] MEDS: TAMSULOSIN HCL 0.4 MG CAP PO SCH (09:22)
[2016-11-24] MEDS: SODIUM CHLORIDE 0.9% FLUSH 5 ML FLUSH FLUSH SCH ×2 (09:23→20:57)
[2016-11-24] MEDS: NYSTATIN SUSP 500,000 U/5 ML CUP SWISH-SWAL SCH ×4 (09:23→20:54)
[2016-11-24] MEDS ORDERED: SODIUM CHLORID 0.9% 500 ML INJ 500 ML IV ONE (10:00)
[2016-11-24] MEDS: LORazepam 1 MG TAB G-TUBE PRN ×2 (12:00→20:56)
[2016-11-25] VITALS (10 sets, daily range): BP systolic 90–170; BP diastolic 50–83; PULSE 79–94; RESP 18; TEMP 97–98.8; O2SAT 90–97
[2016-11-25] MEDS: LEVOFLOXACIN 500 MG TAB G-TUBE SCH (05:02)
[2016-11-25] MEDS: INSULIN ASPART SUPPLEMENTAL SCALE SQ SCH ×4 (05:12→21:17)
[2016-11-25] MEDS: LORazepam 1 MG TAB G-TUBE PRN ×2 (05:13→20:56)
--- NOTE | 2016-11-25 07:44 | HHI.PR ---
Subjective Remarks late entry. date of service 11/24/16. patient seen the [facility] on 11/24/16 pt says pain is controlled. He denies any chest pain or shortness of breath. Nursing reports he has been confused. Objective Vital Signs Date Time Temp Pulse Resp B/P Pulse Ox O2 Delivery O2 Flow Rate FiO2 11/25/16 04:00 97.0 82 18 154/82 97 11/25/16 00:00 97.3 87 18 162/83 96 11/24/16 20:20 95 Nasal Cannula 2.00 11/24/16 20:00 97.8 95 18 164/86 94 11/24/16 20:00 95 11/24/16 16:00 98.0 87 18 152/72 97 11/24/16 12:00 104 11/24/16 12:00 98.2 88 18 98/60 97 11/24/16 09:02 97 Nasal Cannula 2.00 11/24/16 08:00 97.0 84 18 98/64 95 11/24/16 08:00 104 I/O 11/24/16 11/24/16 11/24/16 11/25/16 11/25/16 11/25/16 07:00 15:00 23:00 07:00 15:00 23:00 Intake Total 500 ml Output Total 400 ml Balance -400 ml 500 ml IV Total 500 ml Output Urine Total 400 ml # Voids 3 # Bowel Movements 3 Result Diagram: 11/24/16 0528 11/24/16 0528 Objective Remarks GENERAL: sitting up on edge of bed.. alert and oriented 3, , however confused as to treatment. Does not remember most of our conversations regarding the reasoning for current treatment. SKIN: Warm and dry. HEAD: Normocephalic. EYES: No scleral icterus. No injection or drainage. NECK: Supple, trachea midline. No JVD. CARDIOVASCULAR: Regular rate and rhythm without murmurs, gallops, or rubs. RESPIRATORY: Breath sounds equal bilaterally. No accessory muscle use. GASTROINTESTINAL: Abdomen soft, non-tender, nondistended. PEG tube in place left upper quadrant. Dressed. clean, dry,intact.no change. MUSCULOSKELETAL: No cyanosis, or edema. BACK: Nontender without obvious deformity. No CVA tenderness. A/P Assessment and Plan 11/24 11/24/16. Patient confused intermittently. Consistent with past history of reaction to pain meds. Will discontinue pain meds. Decrease Ativan. Transition to by mouth medications. Will need speech therapy to evaluate prior to clearing him for by mouth diet. -possible discharge to SNF 11/24. //Sepsis. Acute. Improving. //Pneumonia with acute respiratory failure requiring intubation. -Patient successfully extubated 11/12. Has been stable on room air but decompensated on 11/16/16. New Fevers. - Improving. Infectious disease following. Currently on cefepime, continue Levaquin. - Appreciate pulmonology following. -Continue Duonebs QID and PRN -11/19. Repeat sputum culture with normal respiratory johnny. Continue antibiotics. -11/20. Respiratory status continues improving. Continue antibiotics. Appreciate pulmonology assistance -11/20. Respiratory status stable. Likely was secondary to aspiration. = Continue antibiotics as per infectious disease. Levaquin stop date 11/26 //Acute encephalopathy: Resolving. Secondary to above. Head CT unremarkable except for Sinus disease. -11/19. Decrease Ativan 2 mg IV every 4 hours as needed for agitation to 1 mg IV as needed every 6 hours. -11/20. Somnolence appears improved on decreased dose of Ativan. Continue monitor. -11/21. Discussed with pulmonology. Patient's family reports the patient became altered in the past on narcotics. We'll avoid narcotics or any further sedation. -11/22. Narcotics had be started for PEG tube pain. -11/23. Still with some confusion on pain meds. Continue to monitor. -11/24. Still with confusion. This continue pain medication. Decrease Ativan. //Dysphagia: //Odynophagia //Suspected Nahomy esophagitis -11/20. Start fluconazole, as well as nystatin swish and swallow. Barium swallow ordered. GI evaluation appreciated. Continue to monitor. -11/21. Continue fluconazole. Failed barium swallow. Tonsillar hypertrophy on CT. ENT consultation. Possible NG tube versus PEG tube for feeding. Appreciate GI assistance. 11/22. PEG tube placement. = Tube feedings with free water flushes. //History of bilateral PE in August 2016. CTA negative on this admission. -Continue Xarelto. Held periprocedural he -11/23. Restart Xarelto. Follow-up with primary care //COPD Exacerbation -Continue Antibiotics as above - Continue Solu-Medrol - Appreciate Pulmonology assistance. //Ischemic heart disease, HTN, HLD -Continue losartan. Metoprolol 25 BID, 81 mg daily aspirin for abnormal Lexiscan below/and atorvastatin 20 mg daily for dyslipidemia. - Lexiscan revealed large fixed defects inferior lateral wall and apex. Intermediate 1-3% - ECHO with EF of 50-55%, -11/20. Vital signs stable. Patient does have some mild tachycardia from not being able to swallow metoprolol. Continue to monitor. Transfer to ICU or CIC if needs IV metoprolol. -11/21. Tachycardia appears to have resolved. Vital signs stable. Hold by mouth metoprolol. = Continue metoprolol when able. Monitor vital signs. //MIRNA. Resolved. Continue IV fluids //Type 2 DM - Patient had an episode of Hypoglycemia. -11/20. Patient with another episode of hyperglycemia. Patient nothing by mouth for dysphasia. Hold Levemir. D10 1/2ns at 20 miles per hour. -11/22. Plan for restart tube feeds. Levemir and sliding scale. = Continue to monitor glucose and adjust as necessary. //Sinusitis/Mastoiditis seen on CT - On antibiotics as above. //Diarrhea. - C Diff and Hemoccult neg. Abd CT shows Diverticulosis and retained stool. //Intermittent delirium. Worsened by pain medications. Try to limit sedating medications. As needed lorazepam Appreciate psychiatry assistance. -olanzapine at night when tolerated. -Limit sedating medication as possible DVT PPx: Xarelto, SCDs GI prophylaxis: PPI Discharge Planning patient is currently nothing by mouth. Patient has been accepted at SNF.discharge to SNF 11/24 if tolerating tube feeds. Crow Patel MD Nov 25, 2016 07:44
[2016-11-25] MEDS: RESP: ALBUTEROL 2.5 MG/IPRATROPIUM 0.5 MG NEB (SCH) NEB ×2 (08:24→14:00)
[2016-11-25] MEDS ORDERED: LYRI75CA PEG (09:09)
[2016-11-25] MEDS ORDERED: PANT40TA3 PEG (09:09)
[2016-11-25] MEDS ORDERED: LEVEMIR SQ (09:09)
[2016-11-25] MEDS ORDERED: NOVOLOGSS SQ (09:09)
[2016-11-25] MEDS ORDERED: TAMS5CAP PEG (09:09)
[2016-11-25] MEDS ORDERED: LEVA500T G-TUBE (09:09)
[2016-11-25] MEDS ORDERED: LOSA25TA PEG (09:09)
[2016-11-25] MEDS ORDERED: VENL75CA44 PEG (09:09)
[2016-11-25] MEDS ORDERED: MAGN400T2 PEG (09:09)
[2016-11-25] MEDS ORDERED: ASPI81TA11 PEG (09:09)
[2016-11-25] MEDS ORDERED: DIFL200T G-TUBE (09:09)
[2016-11-25] MEDS ORDERED: ATOR20TA15 PEG (09:09)
[2016-11-25] MEDS ORDERED: METO25TA3 PEG (09:09)
[2016-11-25] MEDS ORDERED: IPRASOL NEB ×2 (09:09)
[2016-11-25] MEDS ORDERED: OLAN10TA PEG (09:12)
[2016-11-25] MEDS ORDERED: XARE20TA PO (09:23)
[2016-11-25] MEDS: ASPIRIN 81 MG CHEW TAB TUBE SCH (09:52)
[2016-11-25] MEDS: RIVAROXABAN 20 MG TAB PO SCH (09:52)
[2016-11-25] MEDS: POLYETHYLENE GLYCOL 17 GM PKG PO SCH (09:52)
[2016-11-25] MEDS: MAGNESIUM OXIDE 400 MG TAB G-TUBE SCH (09:52)
[2016-11-25] MEDS: ATORVASTATIN 20 MG TAB G-TUBE SCH (09:52)
[2016-11-25] MEDS: FLUCONAZOLE 200 MG TAB G-TUBE SCH (09:52)
[2016-11-25] MEDS: METOPROLOL TARTRATE 25 MG TAB G-TUBE SCH ×2 (09:52→20:56)
[2016-11-25] MEDS: INSULIN DETEMIR 100 UNITS/ML VIAL SQ SCH ×2 (09:53→20:56)
[2016-11-25] MEDS: PANTOPRAZOLE SOD 40 MG DELAYED RELEASE TAB PO SCH (09:53)
[2016-11-25] MEDS: SENNOSIDES 8.6 MG TAB PO SCH ×2 (09:53→20:56)
[2016-11-25] MEDS: LOSARTAN 50 MG TAB PO SCH (09:53)
[2016-11-25] MEDS: OLANZapine 10 MG TAB G-TUBE SCH (09:53)
[2016-11-25] MEDS: TAMSULOSIN HCL 0.4 MG CAP PO SCH (09:53)
[2016-11-25] MEDS: NYSTATIN SUSP 500,000 U/5 ML CUP SWISH-SWAL SCH ×4 (09:53→20:56)
[2016-11-25] MEDS: SODIUM CHLORIDE 0.9% FLUSH 5 ML FLUSH FLUSH SCH ×2 (09:54→20:57)
[2016-11-25 12:04] LABS: AUTOMATED NEUTROPHIL # 6.8 TH/MM3 (1.8-7.7); BASOPHIL # 0.1 TH/MM3 (0-0.2); BASOPHIL % 0.7 % (0.0-2.0); EOSINOPHIL # 0.2 TH/MM3 (0-0.4); EOSINOPHIL % 2.5 % (0.0-4.0); HEMATOCRIT 33.3 % (39.0-51.0); HEMO FLAGS DIFF FINAL; LYMPH % 9.6 % (9.0-44.0); LYMPHOCYTE # 0.8 TH/MM3 (1.0-4.8); MEAN CELL VOLUME 87.5 FL (80.0-100.0); MEAN CORPUSCULAR HEMOGLOBIN 28.4 PG (27.0-34.0); MEAN CORPUSCULAR HGB CONC 32.5 % (32.0-36.0); MONO % 8.6 % (0.0-8.0); NEUT % 78.6 % (16.0-70.0); PLATELET COUNT 148 TH/MM3 (150-450); WHITE BLOOD COUNT 8.6 TH/MM3 (4.0-11.0)
[2016-11-25 12:10] LABS: BICARBONATE 30.1 MEQ/L (21.0-32.0); POTASSIUM 4.7 MEQ/L (3.5-5.1)
[2016-11-25] MEDS: PREGABALIN 75 MG CAP PO SCH (20:56)
[2016-11-26] VITALS (9 sets, daily range): BP systolic 97–118; BP diastolic 54–72; PULSE 72–91; RESP 15–18; TEMP 96.7–98.9; O2SAT 91–96
--- NOTE | 2016-11-26 00:05 | HHI.PR ---
Subjective Remarks late entry. date of service 11/25/16. patient seen the [facility] on 11/25/16 patient says she feels all right. Long discussion with patient regarding rehabilitation. He would like to go home, however I suggested rehabilitation is his best chance of getting home and staying home. He denies any chest pain or shortness of breath. Denies any nausea or vomiting. Pain is under control.confusion in regards to medical diagnosis and treatment much improved with decreased pain meds today. Objective Vital Signs Date Time Temp Pulse Resp B/P Pulse Ox O2 Delivery O2 Flow Rate FiO2 11/25/16 21:08 90 Nasal Cannula 11/25/16 20:00 97.5 94 18 90/50 93 11/25/16 16:07 98.4 92 18 124/62 91 11/25/16 12:20 98.8 81 18 102/59 93 11/25/16 08:25 91 Nasal Cannula 21 11/25/16 08:20 85 11/25/16 08:19 97.9 88 18 170/76 94 11/25/16 04:00 97.0 82 18 154/82 97 I/O 11/25/16 11/25/16 11/25/16 11/26/16 11/26/16 11/26/16 07:00 15:00 23:00 07:00 15:00 23:00 # Voids 3 3 # Bowel Movements 3 Result Diagram: 11/25/16 1110 11/25/16 1110 Objective Remarks GENERAL: sitting up on edge of bed.. alert and oriented 3, patient appears to understand treatment today. SKIN: Warm and dry. HEAD: Normocephalic. EYES: No scleral icterus. No injection or drainage. NECK: Supple, trachea midline. No JVD. CARDIOVASCULAR: Regular rate and rhythm without murmurs, gallops, or rubs. RESPIRATORY: Breath sounds equal bilaterally. No accessory muscle use. GASTROINTESTINAL: Abdomen soft, non-tender, nondistended. PEG tube in place left upper quadrant. Dressed. clean, dry,intact.no change. MUSCULOSKELETAL: No cyanosis, or edema. BACK: Nontender without obvious deformity. No CVA tenderness. A/P Assessment and Plan 11/25 confusion much improved off pain meds. Will need speech therapy to evaluate prior to clearing him for by mouth diet. -possible discharge to SNF tomorrow. //Sepsis. Acute. Improving. //Pneumonia with acute respiratory failure requiring intubation. -Patient successfully extubated 11/12. Has been stable on room air but decompensated on 11/16/16. New Fevers. - Improving. Infectious disease following. Currently on cefepime, continue Levaquin. - Appreciate pulmonology following. -Continue Duonebs QID and PRN -11/19. Repeat sputum culture with normal respiratory johnny. Continue antibiotics. -11/20. Respiratory status continues improving. Continue antibiotics. Appreciate pulmonology assistance -11/20. Respiratory status stable. Likely was secondary to aspiration. = Continue antibiotics as per infectious disease. Levaquin stop date 11/26 //Acute encephalopathy: Resolving. Secondary to above. Head CT unremarkable except for Sinus disease. -11/19. Decrease Ativan 2 mg IV every 4 hours as needed for agitation to 1 mg IV as needed every 6 hours. -11/20. Somnolence appears improved on decreased dose of Ativan. Continue monitor. -11/21. Discussed with pulmonology. Patient's family reports the patient became altered in the past on narcotics. We'll avoid narcotics or any further sedation. -11/22. Narcotics had be started for PEG tube pain. -11/23. Still with some confusion on pain meds. Continue to monitor. -11/24. Still with confusion. This continue pain medication. Decrease Ativan. //Dysphagia: //Odynophagia //Suspected Nahomy esophagitis -11/20. Start fluconazole, as well as nystatin swish and swallow. Barium swallow ordered. GI evaluation appreciated. Continue to monitor. -11/21. Continue fluconazole. Failed barium swallow. Tonsillar hypertrophy on CT. ENT consultation. Possible NG tube versus PEG tube for feeding. Appreciate GI assistance. 11/22. PEG tube placement. = Tube feedings with free water flushes. //History of bilateral PE in August 2016. CTA negative on this admission. -Continue Xarelto. Held periprocedural he -11/23. Restart Xarelto. Follow-up with primary care //COPD Exacerbation -Continue Antibiotics as above - Continue Solu-Medrol - Appreciate Pulmonology assistance. //Ischemic heart disease, HTN, HLD -Continue losartan. Metoprolol 25 BID, 81 mg daily aspirin for abnormal Lexiscan below/and atorvastatin 20 mg daily for dyslipidemia. - Lexiscan revealed large fixed defects inferior lateral wall and apex. Intermediate 1-3% - ECHO with EF of 50-55%, -11/20. Vital signs stable. Patient does have some mild tachycardia from not being able to swallow metoprolol. Continue to monitor. Transfer to ICU or CIC if needs IV metoprolol. -11/21. Tachycardia appears to have resolved. Vital signs stable. Hold by mouth metoprolol. = Continue metoprolol when able. Monitor vital signs. //MIRNA. Resolved. Continue IV fluids //Type 2 DM - Patient had an episode of Hypoglycemia. -11/20. Patient with another episode of hyperglycemia. Patient nothing by mouth for dysphasia. Hold Levemir. D10 1/2ns at 20 miles per hour. -11/22. Plan for restart tube feeds. Levemir and sliding scale. = Continue to monitor glucose and adjust as necessary. //Sinusitis/Mastoiditis seen on CT - On antibiotics as above. //Diarrhea. - C Diff and Hemoccult neg. Abd CT shows Diverticulosis and retained stool. //Intermittent delirium. Worsened by pain medications. Try to limit sedating medications. As needed lorazepam Appreciate psychiatry assistance. -olanzapine at night when tolerated. -Limit sedating medication as possible DVT PPx: Xarelto, SCDs GI prophylaxis: PPI Discharge Planning patient is currently nothing by mouth. Patient has been accepted at SNF.discharge to SNF if tolerating tube feeds. patient cleared for discharge to SNF. Crow Patel MD Nov 26, 2016 00:05
[2016-11-26] MEDS: LEVOFLOXACIN 500 MG TAB G-TUBE SCH (04:36)
[2016-11-26] MEDS: INSULIN ASPART SUPPLEMENTAL SCALE SQ SCH ×4 (04:45→20:56)
[2016-11-26] MEDS: LORazepam 1 MG TAB G-TUBE PRN (04:50)
--- NOTE | 2016-11-26 08:52 | HHI.FF ---
Face to Face Verification Diagnosis: (1) Mild neurocognitive disorder (2) DM2 (diabetes mellitus, type 2) (3) Bilateral pulmonary embolism (4) History of stroke (5) HTN (hypertension) Occupational Therapy Order: Evaluate and Treat Speech Therapy Order: To Improve: Swallowing Instructions: patient is nothing by mouth. Speech therapy to evaluate for improvement, report to primary M.D. Home Health Nursing Order: Wound care and dressing changes Nursing assessment with vital signs Instructions: patient will need PEG tube care. Will also need home health nurse for medication management I have seen patient Vinicio Julio on 11/26/16. My clinical findings support the need for the requested home health care services because: Limited ability to care for self I certify that my clinical findings support that this patient is homebound because: Unsafe to leave home unassisted Crow Patel MD Nov 26, 2016 08:52
[2016-11-26] MEDS: VENLAFAXINE HCL XR 75 MG CAP PO SCH (09:00)
[2016-11-26] MEDS: SODIUM CHLORIDE 0.9% FLUSH 5 ML FLUSH FLUSH SCH ×2 (09:42→20:53)
[2016-11-26] MEDS: NYSTATIN SUSP 500,000 U/5 ML CUP SWISH-SWAL SCH ×4 (09:43→20:58)
[2016-11-26] MEDS: PANTOPRAZOLE SOD 40 MG DELAYED RELEASE TAB PO SCH (09:43)
[2016-11-26] MEDS: POLYETHYLENE GLYCOL 17 GM PKG PO SCH (09:43)
[2016-11-26] MEDS: OLANZapine 10 MG TAB G-TUBE SCH (09:44)
[2016-11-26] MEDS: FLUCONAZOLE 200 MG TAB G-TUBE SCH (09:45)
[2016-11-26] MEDS: SENNOSIDES 8.6 MG TAB PO SCH ×2 (09:45→20:54)
[2016-11-26] MEDS: METOPROLOL TARTRATE 25 MG TAB G-TUBE SCH ×2 (09:45→20:54)
[2016-11-26] MEDS: PREGABALIN 75 MG CAP PO SCH ×2 (09:45→21:05)
[2016-11-26] MEDS: ASPIRIN 81 MG CHEW TAB TUBE SCH (09:45)
[2016-11-26] MEDS: MAGNESIUM OXIDE 400 MG TAB G-TUBE SCH (09:46)
[2016-11-26] MEDS: TAMSULOSIN HCL 0.4 MG CAP PO SCH (09:46)
[2016-11-26] MEDS: LOSARTAN 50 MG TAB PO SCH (09:46)
[2016-11-26] MEDS: RIVAROXABAN 20 MG TAB PO SCH (09:48)
[2016-11-26] MEDS: INSULIN DETEMIR 100 UNITS/ML VIAL SQ SCH ×2 (09:57→20:57)
[2016-11-26] MEDS: ATORVASTATIN 20 MG TAB G-TUBE SCH (13:09)
--- NOTE | 2016-11-26 23:50 | HHI.PR ---
Subjective Remarks date of service 11/26/16. Patient seen this morning.he is walking around room, however unsteady. He reports pain around the PEG tube site, requesting pain medication. Objective Vital Signs Date Time Temp Pulse Resp B/P Pulse Ox O2 Delivery O2 Flow Rate FiO2 11/26/16 22:29 93 21 11/26/16 20:23 98.9 89 18 97/54 93 11/26/16 16:58 96.7 72 16 118/72 93 11/26/16 12:31 97.7 91 16 104/68 91 11/26/16 08:18 97.6 75 15 101/60 96 11/26/16 08:10 92 21 11/26/16 04:00 97.3 80 18 99/59 93 11/26/16 00:00 97.3 86 18 101/57 93 I/O 11/25/16 11/25/16 11/25/16 11/26/16 11/26/16 11/26/16 07:00 15:00 23:00 07:00 15:00 23:00 Intake Total 660 ml Balance 660 ml Intake Oral 660 ml # Voids 3 3 4 # Bowel Movements 3 1 Result Diagram: 11/25/16 1110 11/25/16 1110 Objective Remarks GENERAL: standing in the room.alert and oriented 3, patient appears to understand treatment. SKIN: Warm and dry. HEAD: Normocephalic. EYES: No scleral icterus. No injection or drainage. NECK: Supple, trachea midline. No JVD. CARDIOVASCULAR: Regular rate and rhythm without murmurs, gallops, or rubs. RESPIRATORY: Breath sounds equal bilaterally. No accessory muscle use. GASTROINTESTINAL: Abdomen soft, non-tender, nondistended. PEG tube in place left upper quadrant. slight surrounding erythema. Advised nursing to place nonstick gauze. MUSCULOSKELETAL: No cyanosis, or edema. BACK: Nontender without obvious deformity. No CVA tenderness. A/P Assessment and Plan 11/26 PT reordered and OT ordered. awaiting acceptance to SNF. Patient does not appear to be able to take care of himself at home 11. //Sepsis. Acute. Improving. //Pneumonia with acute respiratory failure requiring intubation. -Patient successfully extubated 11/12. Has been stable on room air but decompensated on 11/16/16. New Fevers. - Improving. Infectious disease following. Currently on cefepime, continue Levaquin. - Appreciate pulmonology following. -Continue Duonebs QID and PRN -11/19. Repeat sputum culture with normal respiratory johnny. Continue antibiotics. -11/20. Respiratory status continues improving. Continue antibiotics. Appreciate pulmonology assistance -11/20. Respiratory status stable. Likely was secondary to aspiration. = Continue antibiotics as per infectious disease. Levaquin stop date 11/26 //Acute encephalopathy: Resolving. Secondary to above. Head CT unremarkable except for Sinus disease. -11/19. Decrease Ativan 2 mg IV every 4 hours as needed for agitation to 1 mg IV as needed every 6 hours. -11/20. Somnolence appears improved on decreased dose of Ativan. Continue monitor. -11/21. Discussed with pulmonology. Patient's family reports the patient became altered in the past on narcotics. We'll avoid narcotics or any further sedation. -11/22. Narcotics had be started for PEG tube pain. -11/23. Still with some confusion on pain meds. Continue to monitor. -11/24. Still with confusion. This continue pain medication. Decrease Ativan. //Dysphagia: //Odynophagia //Suspected Nahomy esophagitis -11/20. Start fluconazole, as well as nystatin swish and swallow. Barium swallow ordered. GI evaluation appreciated. Continue to monitor. -11/21. Continue fluconazole. Failed barium swallow. Tonsillar hypertrophy on CT. ENT consultation. Possible NG tube versus PEG tube for feeding. Appreciate GI assistance. 11/22. PEG tube placement. = Tube feedings with free water flushes. //History of bilateral PE in August 2016. CTA negative on this admission. -Continue Xarelto. Held periprocedural he -11/23. Restart Xarelto. Follow-up with primary care //COPD Exacerbation -Continue Antibiotics as above - Continue Solu-Medrol - Appreciate Pulmonology assistance. //Ischemic heart disease, HTN, HLD -Continue losartan. Metoprolol 25 BID, 81 mg daily aspirin for abnormal Lexiscan below/and atorvastatin 20 mg daily for dyslipidemia. - Lexiscan revealed large fixed defects inferior lateral wall and apex. Intermediate 1-3% - ECHO with EF of 50-55%, -11/20. Vital signs stable. Patient does have some mild tachycardia from not being able to swallow metoprolol. Continue to monitor. Transfer to ICU or CIC if needs IV metoprolol. -11/21. Tachycardia appears to have resolved. Vital signs stable. Hold by mouth metoprolol. = Continue metoprolol when able. Monitor vital signs. //MIRNA. Resolved. Continue IV fluids //Type 2 DM - Patient had an episode of Hypoglycemia. -11/20. Patient with another episode of hyperglycemia. Patient nothing by mouth for dysphasia. Hold Levemir. D10 1/2ns at 20 miles per hour. -11/22. Plan for restart tube feeds. Levemir and sliding scale. = Continue to monitor glucose and adjust as necessary. //Sinusitis/Mastoiditis seen on CT - On antibiotics as above. //Diarrhea. - C Diff and Hemoccult neg. Abd CT shows Diverticulosis and retained stool. //Intermittent delirium. Worsened by pain medications. Try to limit sedating medications. As needed lorazepam Appreciate psychiatry assistance. -olanzapine at night when tolerated. -Limit sedating medication as possible DVT PPx: Xarelto, SCDs GI prophylaxis: PPI Discharge Planning patient is currently nothing by mouth. Patient has been accepted at SNF.discharge to SNF if tolerating tube feeds. patient cleared for discharge to SNF. Crow Patel MD Nov 26, 2016 23:50
[2016-11-27] VITALS (11 sets, daily range): BP systolic 87–118; BP diastolic 56–75; PULSE 68–99; RESP 17–20; TEMP 96–98.8; O2SAT 93–99
[2016-11-27] MEDS: INSULIN ASPART SUPPLEMENTAL SCALE SQ SCH ×4 (04:51→21:57)
[2016-11-27] MEDS: LEVOFLOXACIN 500 MG TAB G-TUBE SCH (04:51)
[2016-11-27] MEDS: SENNOSIDES 8.6 MG TAB PO SCH ×2 (09:00→21:00)
[2016-11-27] MEDS: POLYETHYLENE GLYCOL 17 GM PKG PO SCH (09:00)
[2016-11-27] MEDS: SODIUM CHLORIDE 0.9% FLUSH 5 ML FLUSH FLUSH SCH ×2 (09:50→21:00)
[2016-11-27] MEDS: ATORVASTATIN 20 MG TAB G-TUBE SCH (09:51)
[2016-11-27] MEDS: PREGABALIN 75 MG CAP PO SCH ×2 (09:51→21:54)
[2016-11-27] MEDS: FLUCONAZOLE 200 MG TAB G-TUBE SCH (09:52)
[2016-11-27] MEDS: ASPIRIN 81 MG CHEW TAB TUBE SCH (09:54)
[2016-11-27] MEDS: OLANZapine 10 MG TAB G-TUBE SCH (09:54)
[2016-11-27] MEDS: PANTOPRAZOLE SOD 40 MG DELAYED RELEASE TAB PO SCH (09:55)
[2016-11-27] MEDS: RIVAROXABAN 20 MG TAB PO SCH (09:56)
[2016-11-27] MEDS: MAGNESIUM OXIDE 400 MG TAB G-TUBE SCH (09:58)
[2016-11-27] MEDS: LOSARTAN 50 MG TAB PO SCH (09:58)
[2016-11-27] MEDS: TAMSULOSIN HCL 0.4 MG CAP PO SCH (09:59)
[2016-11-27] MEDS: NYSTATIN SUSP 500,000 U/5 ML CUP SWISH-SWAL SCH ×3 (10:00→21:54)
[2016-11-27] MEDS: INSULIN DETEMIR 100 UNITS/ML VIAL SQ SCH ×2 (10:01→21:55)
[2016-11-27] MEDS: METOPROLOL TARTRATE 25 MG TAB G-TUBE SCH ×2 (10:05→21:00)
--- NOTE | 2016-11-27 10:28 | HHI.PR ---
Subjective Remarks The pt wanted to go home. He had no acute complaints. He wanted to be taught on how to use the PEG tube. He said his pain was controlled. Discussed with case management. Objective Vitals Vital Signs Date Time Temp Pulse Resp B/P Pulse Ox O2 Delivery O2 Flow Rate FiO2 11/27/16 09:32 94 21 11/27/16 09:00 100/62 11/27/16 08:00 98.4 99 18 87/58 94 11/27/16 04:58 98.7 77 20 107/56 97 11/27/16 00:19 98.8 68 19 118/75 93 11/26/16 22:29 93 21 11/26/16 20:23 98.9 89 18 97/54 93 11/26/16 20:00 Nasal Cannula 2.00 11/26/16 20:00 84 11/26/16 20:00 84 11/26/16 16:58 96.7 72 16 118/72 93 11/26/16 12:31 97.7 91 16 104/68 91 I/O 11/26/16 11/26/16 11/26/16 11/27/16 11/27/16 11/27/16 07:00 15:00 23:00 07:00 15:00 23:00 Intake Total 660 ml Balance 660 ml Intake Oral 660 ml # Voids 4 0 # Bowel Movements 1 0 Result Diagram: 11/25/16 1110 11/25/16 1110 Imaging Last Impressions Neck CT 11/21/16 0000 Signed Impressions: Service Date/Time: Monday, November 21, 2016 12:02 - CONCLUSION: 1. Symmetric prominence of the tonsillar pillars bilaterally suggesting some tonsillar swelling. No significant mucosal enhancement is seen. 2. There is coating of the mucosal surfaces of the oropharynx secondary to the patient's previous barium swallow study. 3. Degenerative changes in cervical spine. 4. Air-fluid levels in both maxillary sinuses. Raudel Santizo MD Modified Barium Swallow 11/21/16 0000 Signed Impressions: Service Date/Time: Monday, November 21, 2016 00:00 - CONCLUSION: Aspiration of multiple consistencies of barium contrast. Kush Vigil MD Chest X-Ray 11/17/16 0000 Signed Impressions: Service Date/Time: Thursday, November 17, 2016 08:56 - CONCLUSION: 1. Improved aeration lung staley compared to the prior exam. 2. Mild left lower lung atelectasis. Julián Perez MD Head CT 11/15/16 0000 Signed Impressions: Service Date/Time: October 23:57 - CONCLUSION: 1. No acute intracranial abnormalities. Bilateral maxillary and right sphenoid sinus disease. Moy Pederson MD Abdomen/Pelvis CT 11/15/16 0000 Signed Impressions: Service Date/Time: October 16:40 - CONCLUSION: Colonic diverticulosis without evidence of active inflammatory disease. Moderate to large amount retained stool. No evidence of obstruction, ileus, free air or abnormal fluid collections. Cholelithiasis. Yousif Van MD Upper Extremity Ultrasound 11/10/16 0000 Signed Impressions: Service Date/Time: Thursday, November 10, 2016 13:28 - CONCLUSION: 1. Nonocclusive thrombus in the right internal jugular vein. 2. Occlusive thrombus in the left cephalic vein. Guerrero Johnston MD Lower Extremity Ultrasound 11/10/16 0000 Signed Impressions: Service Date/Time: Thursday, November 10, 2016 13:04 - CONCLUSION: No DVT. Guerrero Johnston MD Brain MRI 11/09/16 0000 Signed Impressions: Service Date/Time: Wednesday, November 09, 2016 09:48 - CONCLUSION: 1. No acute infarct or other acute intracranial abnormality. 2. Mild, nonspecific chronic white matter signal changes. 3. Pansinusitis and apparent bilateral mastoiditis. Guerrero Cummings MD Skull X-Ray 11/08/16 0000 Signed Impressions: Service Date/Time: October 16:26 - CONCLUSION: No MRI incompatible foreign body is identified. Guerrero Cummings MD Myocardial Perfusion Scan Nuc Med 11/02/16 0600 Signed Impressions: Service Date/Time: Wednesday, November 02, 2016 09:10 - CONCLUSION: 1. Large sized moderate severity fixed defect involving the inferolateral wall including the apex. Ischemia is not excluded. No wall motion abnormalities are identified RISK CATEGORY: Intermediate (1-3%% Annual Mortality Rate) Ben Aden MD CT Angiography 10/30/16 0000 Signed Impressions: Service Date/Time: Sunday, October 30, 2016 14:54 - CONCLUSION: The multiple pulmonary emboli seen in August have completely resolved. I don't see any residual emboli on today's exam. There is new airspace disease in the left upper lobe possible pneumonia. Garett Layton MD Abdomen X-Ray 10/30/16 0000 Signed Impressions: Service Date/Time: Sunday, October 30, 2016 14:47 - CONCLUSION: Normal examination. Bony prominence of the right pubic symphysis Garett Layton MD Objective Remarks GENERAL: This is a well-nourished, well-developed patient in [facility]. SKIN: No rashes, ecchymoses or lesions. Diaphoretic. HEAD: Atraumatic. Normocephalic. No temporal or scalp tenderness. EYES: Extraocular motions intact. No scleral icterus. No injection or drainage. CARDIOVASCULAR: Regular rate and rhythm without murmurs, gallops, or rubs. RESPIRATORY: CTAB. GASTROINTESTINAL: Abdomen soft, nondistended. Tender to palpation around PEG tube. MUSCULOSKELETAL: Extremities without clubbing, cyanosis or edema. NEUROLOGICAL: Awake and alert. No focal deficits. Motor and sensory grossly within normal limits. Five out of 5 muscle strength in all muscle groups. Normal speech. PSYCH: Mood and affect appropriate. . Medications and IVs Current Medications Medications (Trade) Dose Ordered Sig/Dario Route Start Time Stop Time Status Last Admin (Lyrica) 75 mg BID PO 10/30/16 21:00 11/27/16 09:51 (NS Flush) 2 ml UNSCH PRN FLUSH 10/30/16 14:30 10/31/16 01:09 (NS Flush) 2 ml BID FLUSH 10/30/16 21:00 11/27/16 09:50 (Zofran Inj) 4 mg Q6H PRN IVP 10/30/16 14:30 11/19/16 08:15 (Dulcolax Supp) 10 mg DAILY PRN MI 10/30/16 14:30 (Colace) 100 mg Q12H PO 10/30/16 14:30 Hold 11/12/16 00:53 (Narcan Inj) 0.4 mg UNSCH PRN IV 10/30/16 14:30 (Robitussin Ac 200-20 Mg/10 ml Liq) 10 ml Q4H PRN PO 10/30/16 16:00 Hold 11/15/16 06:06 (Flomax) 0.4 mg DAILY PO 10/31/16 11:30 11/27/16 09:59 (Vasotec Inj) 1.25 mg Q6H PRN IV PUSH 10/31/16 11:30 11/10/16 01:15 (D50w (Vial) Inj) 25 ml UNSCH PRN IV 11/06/16 11:30 11/20/16 06:35 (Glucagon Inj) 1 mg UNSCH PRN IM/SQ 11/06/16 11:30 (Senokot) 17.2 mg Q12HR PO 11/10/16 21:00 11/26/16 09:45 (Miralax) 17 gm DAILY PO 11/11/16 09:00 11/26/16 09:43 (Cozaar) 50 mg DAILY PO 11/15/16 09:00 11/27/16 09:58 (Protonix) 40 mg DAILY PO 11/15/16 09:00 11/27/16 09:55 (Tylenol Supp) 650 mg Q6H PRN RECTAL 11/16/16 16:45 11/18/16 23:43 (Mycostatin Liq) 5 ml QID SWISH-SWAL 11/20/16 18:00 11/27/16 10:00 (Pill Splitter) 1 ea UNSCH PRN OTHER 11/22/16 18:15 (Lipitor) 20 mg DAILY G-TUBE 11/24/16 09:00 11/27/16 09:51 (Levemir Inj) 8 units Q12HR SQ 11/23/16 21:00 11/27/16 10:01 (Mag-Ox) 400 mg DAILY G-TUBE 11/24/16 09:00 11/27/16 09:58 (Lopressor) 25 mg BID G-TUBE 11/23/16 21:00 11/27/16 10:05 (ZyPREXA) 10 mg DAILY G-TUBE 11/24/16 09:00 11/27/16 09:54 (Aspirin Chew) 81 mg DAILY TUBE 11/24/16 09:00 11/27/16 09:54 (Diflucan) 200 mg DAILY G-TUBE 11/25/16 09:00 12/04/16 11:11 11/27/16 09:52 (Xarelto) 20 mg DAILY PO 11/25/16 09:00 11/27/16 09:56 A/P Problem List: (1) Acute hypoxemic respiratory failure ICD Code: J96.01 Status: Acute (2) Bilateral pulmonary embolism ICD Code: I26.99 Status: Chronic (3) COPD exacerbation ICD Code: J44.1 Status: Acute (4) History of stroke ICD Code: Z86.73 Status: Chronic (5) Hyperlipidemia ICD Code: E78.5 Status: Chronic (6) DM2 (diabetes mellitus, type 2) ICD Code: E11.9 Status: Chronic (7) Pneumonia ICD Code: J18.9 Status: Acute (8) Aortic stenosis, mild ICD Code: I35.0 Status: Chronic (9) HTN (hypertension) ICD Code: I10 Status: Chronic (10) Mastoiditis ICD Code: H70.90 Status: Acute (11) Diarrhea ICD Code: R19.7 Status: Acute Assessment and Plan HCAP/ Acute respiratory failure/ COPD The patient was given Rocephin and azithromycin in the emergency department. He was recently treated for bilateral pneumonia. CT showed left upper airspace disease. He required BiPAP for a period of time. ABG did show hypercarbic respiratory failure. He required intubation. Extubated 11/12. S/p vancomycin and Zosyn. Pulmonology was consulted. He received Duonebs standing and as needed. S/ p Solu-Medrol. He received BiPAP as needed. He worked with PT/OT. He was diuresed. - completed course of Levaquin per ID. - oxygen and nebs as needed. Acute encephalopathy Head CT unremarkable except for sinus disease, s/p antibiotics. Appreciate psych consult. - We'll avoid narcotics or any further sedation if possible. - neuro checks. - PT/ OT. - olanzapine at night as tolerated. Dysphagia/ Odynophagia/ Suspected hortencia esophagitis Started on fluconazole, as well as nystatin swish and swallow. Failed barium swallow. GI evaluation appreciated. Continue to monitor. Tonsillar hypertrophy on CT. ENT consultation. PEG tube placed. - Tube feedings with free water flushes. Chest pain with mildly elevated troponin Troponin peaked at 0.58- possibly demand ischemia in the setting of pneumonia. The pt has had elevated trops in the past s/t pneumonia. EKG reveals sinus rhythm with inverted T waves in V6 and slight ST depression. Recent cardiac echocardiogram 08/29/2016 shows EF 55-60%. Cardiology consult appreciated. Echo with EF 50-55%, mild . Stress test with: Large sized moderate severity fixed defect involving the inferolateral wall including the apex; Ischemia is not excluded; No wall motion abnormalities are identified - Continuous telemetry. - follow up with cardiology. - Continue losartan, metoprolol 25 BID, 81 mg daily aspirin for abnormal Lexiscan and atorvastatin 20 mg daily for dyslipidemia. Diabetes mellitus insulin-dependent Patient takes Lantus 45 units twice a day at home. Hemoglobin A1c 08/03/2016 9.3% . Currently on tube feeds. - continue Levemir 8 units BID along with insulin sliding scale. History of pulmonary venous embolism CTA negative for PE. - continue Xarelto. Renal insufficiency The patient has had elevated creatinine in the past. - Follow BMP while being diuresed. DVT PPx: Xarelto, SCDs GI prophylaxis: PPI Discharge Planning D/c home with C once services arranged. Problem Qualifiers (1) Pneumonia: Qualified Code: J18.1 - Pneumonia of left lower lobe due to infectious organism Samir Nick DO Nov 27, 2016 10:28
--- NOTE | 2016-11-27 12:34 | HHI.DCPOC ---
Discharge Care Plan Diagnosis: (1) Mild neurocognitive disorder (2) DM2 (diabetes mellitus, type 2) (3) COPD exacerbation (4) Pneumonia (5) Acute hypoxemic respiratory failure (6) Troponin level elevated Goals to Promote Your Health * To prevent worsening of your condition and complications * To maintain your health at the optimal level Directions to Meet Your Goals Take your medications as prescribed Follow your dietary instruction Follow activity as directed Keep your appointments as scheduled Take your immunizations and boosters as scheduled If your symptoms worsen call your PCP, if no PCP go to Urgent Care Center or Emergency Room Smoking is Dangerous to Your Health. Avoid second hand smoke Call the 24-hour hour crisis hotline for domestic abuse at Samir Nick DO Nov 27, 2016 12:34
[2016-11-28] VITALS (8 sets, daily range): BP systolic 78–138; BP diastolic 50–76; PULSE 76–97; RESP 16–20; TEMP 95.3–97.5; O2SAT 90–96
[2016-11-28] MEDS: INSULIN ASPART SUPPLEMENTAL SCALE SQ SCH ×4 (06:42→21:35)
[2016-11-28] MEDS: PREGABALIN 75 MG CAP PO SCH ×2 (08:38→21:34)
[2016-11-28] MEDS: RIVAROXABAN 20 MG TAB PO SCH (08:38)
[2016-11-28] MEDS: ATORVASTATIN 20 MG TAB G-TUBE SCH (08:39)
[2016-11-28] MEDS: FLUCONAZOLE 200 MG TAB G-TUBE SCH (08:40)
[2016-11-28] MEDS: OLANZapine 10 MG TAB G-TUBE SCH (08:41)
[2016-11-28] MEDS: PANTOPRAZOLE SOD 40 MG DELAYED RELEASE TAB PO SCH (08:41)
[2016-11-28] MEDS: MAGNESIUM OXIDE 400 MG TAB G-TUBE SCH (08:41)
[2016-11-28] MEDS: TAMSULOSIN HCL 0.4 MG CAP PO SCH (08:41)
[2016-11-28] MEDS: ASPIRIN 81 MG CHEW TAB TUBE SCH (08:41)
[2016-11-28] MEDS: NYSTATIN SUSP 500,000 U/5 ML CUP SWISH-SWAL SCH ×4 (08:48→21:32)
[2016-11-28] MEDS: LOSARTAN 50 MG TAB PO SCH (08:54)
[2016-11-28] MEDS: INSULIN DETEMIR 100 UNITS/ML VIAL SQ SCH ×2 (08:54→21:34)
[2016-11-28] MEDS: METOPROLOL TARTRATE 25 MG TAB G-TUBE SCH ×2 (08:55→21:00)
[2016-11-28] MEDS: POLYETHYLENE GLYCOL 17 GM PKG PO SCH (08:58)
[2016-11-28] MEDS: SENNOSIDES 8.6 MG TAB PO SCH ×2 (08:59→21:00)
[2016-11-28] MEDS: SODIUM CHLORIDE 0.9% FLUSH 5 ML FLUSH FLUSH SCH ×2 (09:01→21:34)
[2016-11-28] MEDS ORDERED: ACETAMINOPHEN 500 MG CPLT PO ONE (15:30)
--- NOTE | 2016-11-28 15:34 | HHI.PR ---
Subjective Remarks The patient was ambulating with his family. He was looking for to going home soon. He would like a feeding tube removed. He states that he is eating all of his meals. He says he would like pain medicine because he has chronic pain and pain around feeding tube site. Discussed with case management. Objective Vitals Vital Signs Date Time Temp Pulse Resp B/P Pulse Ox O2 Delivery O2 Flow Rate FiO2 11/28/16 13:12 96.8 84 16 120/76 95 11/28/16 11:48 90 Nasal Cannula 21 11/28/16 09:38 18 11/28/16 09:05 95.3 92 16 100/63 95 11/28/16 06:25 97.3 76 18 113/63 93 11/28/16 00:24 97.3 84 18 92/55 96 11/27/16 22:35 98 21 11/27/16 21:05 96.0 77 17 109/57 99 11/27/16 20:00 95 11/27/16 20:00 95 11/27/16 20:00 Room Air 11/27/16 16:00 98.1 94 18 98/62 98 I/O 11/27/16 11/27/16 11/27/16 11/28/16 11/28/16 11/28/16 07:00 15:00 23:00 07:00 15:00 23:00 Intake Total 700 ml 480 ml Balance 700 ml 480 ml Intake Oral 480 ml Tube Feeding 480 ml Tube Irrigant 120 ml Other 100 ml # Voids 0 2 2 # Bowel Movements 0 Result Diagram: 11/25/16 1110 11/25/16 1110 Imaging Last Impressions Neck CT 11/21/16 0000 Signed Impressions: Service Date/Time: Monday, November 21, 2016 12:02 - CONCLUSION: 1. Symmetric prominence of the tonsillar pillars bilaterally suggesting some tonsillar swelling. No significant mucosal enhancement is seen. 2. There is coating of the mucosal surfaces of the oropharynx secondary to the patient's previous barium swallow study. 3. Degenerative changes in cervical spine. 4. Air-fluid levels in both maxillary sinuses. Raudel Santizo MD Modified Barium Swallow 11/21/16 0000 Signed Impressions: Service Date/Time: Monday, November 21, 2016 00:00 - CONCLUSION: Aspiration of multiple consistencies of barium contrast. Kush Vigil MD Chest X-Ray 11/17/16 0000 Signed Impressions: Service Date/Time: Thursday, November 17, 2016 08:56 - CONCLUSION: 1. Improved aeration lung staley compared to the prior exam. 2. Mild left lower lung atelectasis. Julián Perez MD Head CT 11/15/16 0000 Signed Impressions: Service Date/Time: October 23:57 - CONCLUSION: 1. No acute intracranial abnormalities. Bilateral maxillary and right sphenoid sinus disease. Moy Pederson MD Abdomen/Pelvis CT 11/15/16 0000 Signed Impressions: Service Date/Time: October 16:40 - CONCLUSION: Colonic diverticulosis without evidence of active inflammatory disease. Moderate to large amount retained stool. No evidence of obstruction, ileus, free air or abnormal fluid collections. Cholelithiasis. Yousif Van MD Upper Extremity Ultrasound 11/10/16 0000 Signed Impressions: Service Date/Time: Thursday, November 10, 2016 13:28 - CONCLUSION: 1. Nonocclusive thrombus in the right internal jugular vein. 2. Occlusive thrombus in the left cephalic vein. Guerrero Johnston MD Lower Extremity Ultrasound 11/10/16 0000 Signed Impressions: Service Date/Time: Thursday, November 10, 2016 13:04 - CONCLUSION: No DVT. Guerrero Johnston MD Brain MRI 11/09/16 0000 Signed Impressions: Service Date/Time: Wednesday, November 09, 2016 09:48 - CONCLUSION: 1. No acute infarct or other acute intracranial abnormality. 2. Mild, nonspecific chronic white matter signal changes. 3. Pansinusitis and apparent bilateral mastoiditis. Guerrero Cummings MD Skull X-Ray 11/08/16 0000 Signed Impressions: Service Date/Time: October 16:26 - CONCLUSION: No MRI incompatible foreign body is identified. Guerrero Cummings MD Myocardial Perfusion Scan Nuc Med 11/02/16 0600 Signed Impressions: Service Date/Time: Wednesday, November 02, 2016 09:10 - CONCLUSION: 1. Large sized moderate severity fixed defect involving the inferolateral wall including the apex. Ischemia is not excluded. No wall motion abnormalities are identified RISK CATEGORY: Intermediate (1-3%% Annual Mortality Rate) Ben Aden MD CT Angiography 10/30/16 0000 Signed Impressions: Service Date/Time: Sunday, October 30, 2016 14:54 - CONCLUSION: The multiple pulmonary emboli seen in August have completely resolved. I don't see any residual emboli on today's exam. There is new airspace disease in the left upper lobe possible pneumonia. Garett Layton MD Abdomen X-Ray 10/30/16 0000 Signed Impressions: Service Date/Time: Sunday, October 30, 2016 14:47 - CONCLUSION: Normal examination. Bony prominence of the right pubic symphysis Garett Layton MD Objective Remarks GENERAL: This is a well-nourished, well-developed patient in [facility]. SKIN: No rashes, ecchymoses or lesions. Diaphoretic. HEAD: Atraumatic. Normocephalic. No temporal or scalp tenderness. EYES: Extraocular motions intact. No scleral icterus. No injection or drainage. CARDIOVASCULAR: Regular rate and rhythm without murmurs, gallops, or rubs. RESPIRATORY: CTAB. GASTROINTESTINAL: Abdomen soft, nondistended. Tender to palpation around PEG tube. MUSCULOSKELETAL: Extremities without clubbing, cyanosis or edema. NEUROLOGICAL: Awake and alert. No focal deficits. Motor and sensory grossly within normal limits. Five out of 5 muscle strength in all muscle groups. Normal speech. PSYCH: Mood and affect appropriate. . Procedures PEG tube placement Medications and IVs Current Medications Medications (Trade) Dose Ordered Sig/Dario Route Start Time Stop Time Status Last Admin (Lyrica) 75 mg BID PO 10/30/16 21:00 11/28/16 08:38 (NS Flush) 2 ml UNSCH PRN FLUSH 10/30/16 14:30 10/31/16 01:09 (NS Flush) 2 ml BID FLUSH 10/30/16 21:00 11/28/16 09:01 (Zofran Inj) 4 mg Q6H PRN IVP 10/30/16 14:30 11/19/16 08:15 (Dulcolax Supp) [address] 10/30/16 14:30 (Colace) 100 mg Q12H PO 10/30/16 14:30 Hold 11/12/16 00:53 (Narcan Inj) 0.4 mg UNSCH PRN IV 10/30/16 14:30 (Robitussin Ac 200-20 Mg/10 ml Liq) 10 ml Q4H PRN PO 10/30/16 16:00 Hold 11/15/16 06:06 (Flomax) 0.4 mg DAILY PO 10/31/16 11:30 11/28/16 08:41 (Vasotec Inj) 1.25 mg Q6H PRN IV PUSH 10/31/16 11:30 11/10/16 01:15 (D50w (Vial) Inj) 25 ml UNSCH PRN IV 11/06/16 11:30 11/20/16 06:35 (Glucagon Inj) 1 mg UNSCH PRN IM/SQ 11/06/16 11:30 (Senokot) 17.2 mg Q12HR PO 11/10/16 21:00 11/26/16 09:45 (Miralax) 17 gm DAILY PO 11/11/16 09:00 11/26/16 09:43 (Cozaar) 50 mg DAILY PO 11/15/16 09:00 11/27/16 09:58 (Protonix) 40 mg DAILY PO 11/15/16 09:00 11/28/16 08:41 (Tylenol Supp) 650 mg Q6H PRN RECTAL 11/16/16 16:45 11/18/16 23:43 (Mycostatin Liq) 5 ml QID SWISH-SWAL 11/20/16 18:00 11/28/16 13:00 (Pill Splitter) 1 ea UNSCH PRN OTHER 11/22/16 18:15 11/28/16 08:43 (Lipitor) 20 mg DAILY G-TUBE 11/24/16 09:00 11/28/16 08:39 (Levemir Inj) 8 units Q12HR SQ 11/23/16 21:00 11/28/16 08:54 (Mag-Ox) 400 mg DAILY G-TUBE 11/24/16 09:00 11/28/16 08:41 (Lopressor) 25 mg BID G-TUBE 11/23/16 21:00 11/27/16 10:05 (ZyPREXA) 10 mg DAILY G-TUBE 11/24/16 09:00 11/28/16 08:41 (Aspirin Chew) 81 mg DAILY TUBE 11/24/16 09:00 11/28/16 08:41 (Diflucan) 200 mg DAILY G-TUBE 11/25/16 09:00 12/04/16 11:11 11/28/16 08:40 (Xarelto) 20 mg DAILY PO 11/25/16 09:00 11/28/16 08:38 (Tylenol) 1,000 mg ONCE ONCE PO 11/28/16 15:30 11/28/16 15:31 UNV A/P Problem List: (1) Acute hypoxemic respiratory failure ICD Code: J96.01 Status: Acute (2) Bilateral pulmonary embolism ICD Code: I26.99 Status: Chronic (3) COPD exacerbation ICD Code: J44.1 Status: Acute (4) History of stroke ICD Code: Z86.73 Status: Chronic (5) Hyperlipidemia ICD Code: E78.5 Status: Chronic (6) DM2 (diabetes mellitus, type 2) ICD Code: E11.9 Status: Chronic (7) Pneumonia ICD Code: J18.9 Status: Acute (8) Aortic stenosis, mild ICD Code: I35.0 Status: Chronic (9) HTN (hypertension) ICD Code: I10 Status: Chronic (10) Mastoiditis ICD Code: H70.90 Status: Acute (11) Diarrhea ICD Code: R19.7 Status: Acute Assessment and Plan HCAP/ Acute respiratory failure/ COPD The patient was given Rocephin and azithromycin in the emergency department. He was recently treated for bilateral pneumonia. CT showed left upper airspace disease. He required BiPAP for a period of time. ABG did show hypercarbic respiratory failure. He required intubation. Extubated 11/12. S/p vancomycin and Zosyn. Pulmonology was consulted. He received Duonebs standing and as needed. S/ p Solu-Medrol. He received BiPAP as needed. He worked with PT/OT. He was diuresed. - completed course of Levaquin per ID. - oxygen and nebs as needed. - Incentive spirometry. Acute encephalopathy Head CT unremarkable except for sinus disease, s/p antibiotics. Appreciate psych consult. - We'll avoid narcotics or any further sedation if possible. - neuro checks. - PT/ OT. - olanzapine at night as tolerated. Dysphagia/ Odynophagia/ Suspected hortencia esophagitis Started on fluconazole, as well as nystatin swish and swallow. Failed barium swallow. GI evaluation appreciated. Continue to monitor. Tonsillar hypertrophy on CT. ENT consultation. PEG tube placed. - Tube feedings with free water flushes. - ST started mechanical soft diet with thickened liquids. - will ask dietary about d/c tube feeds. - continue fluconazole. Chest pain with mildly elevated troponin Troponin peaked at 0.58- possibly demand ischemia in the setting of pneumonia. The pt has had elevated trops in the past s/t pneumonia. EKG reveals sinus rhythm with inverted T waves in V6 and slight ST depression. Recent cardiac echocardiogram 08/29/2016 shows EF 55-60%. Cardiology consult appreciated. Echo with EF 50-55%, mild . Stress test with: Large sized moderate severity fixed defect involving the inferolateral wall including the apex; Ischemia is not excluded; No wall motion abnormalities are identified - Continuous telemetry. - follow up with cardiology. - Continue losartan, metoprolol 25 BID, 81 mg daily aspirin for abnormal Lexiscan and atorvastatin 20 mg daily for dyslipidemia. Diabetes mellitus insulin-dependent Patient takes Lantus 45 units twice a day at home. Hemoglobin A1c 08/03/2016 9.3% . - continue Levemir 8 units BID along with insulin sliding scale. Adjust as needed. History of pulmonary venous embolism CTA negative for PE. - continue Xarelto. DVT PPx: Xarelto, SCDs GI prophylaxis: PPI Discharge Planning D/c home in 1-2 days. Problem Qualifiers (1) Pneumonia: Qualified Code: J18.1 - Pneumonia of left lower lobe due to infectious organism Samir Nick DO Nov 28, 2016 15:34
[2016-11-28] MEDS ORDERED: SODIUM CHLORID 0.9% 500 ML INJ 500 ML IV ONE (21:15)
[2016-11-29] VITALS: BP 107/63; PULSE 83; RESP 20; TEMP 97.4; O2SAT 94
[2016-11-29 04:00] VITALS: BP 127/68; PULSE 80; RESP 20; TEMP 96; O2SAT 92
[2016-11-29] MEDS: ACETAMINOPHEN 325 MG TAB PO PRN ×2 (05:27→09:58)
[2016-11-29] MEDS: INSULIN ASPART SUPPLEMENTAL SCALE SQ SCH ×2 (06:01→11:00)
[2016-11-29 08:00] VITALS: PULSE 96
[2016-11-29 09:00] VITALS: BP 104/71; PULSE 99; RESP 18; TEMP 96.8; O2SAT 94
[2016-11-29] MEDS: MAGNESIUM OXIDE 400 MG TAB G-TUBE SCH (09:00)
[2016-11-29] MEDS: TAMSULOSIN HCL 0.4 MG CAP PO SCH (09:00)
[2016-11-29] MEDS: SODIUM CHLORIDE 0.9% FLUSH 5 ML FLUSH FLUSH SCH (09:00)
[2016-11-29] MEDS: NYSTATIN SUSP 500,000 U/5 ML CUP SWISH-SWAL SCH (09:00)
[2016-11-29] MEDS: SENNOSIDES 8.6 MG TAB PO SCH (09:36)
[2016-11-29] MEDS: PANTOPRAZOLE SOD 40 MG DELAYED RELEASE TAB PO SCH (09:36)
[2016-11-29] MEDS: LOSARTAN 50 MG TAB PO SCH (09:36)
[2016-11-29] MEDS: POLYETHYLENE GLYCOL 17 GM PKG PO SCH (09:36)
[2016-11-29] MEDS: RIVAROXABAN 20 MG TAB PO SCH (09:36)
[2016-11-29] MEDS: ASPIRIN 81 MG CHEW TAB TUBE SCH (09:37)
[2016-11-29] MEDS: PREGABALIN 75 MG CAP PO SCH (09:37)
[2016-11-29] MEDS: FLUCONAZOLE 200 MG TAB G-TUBE SCH (09:40)
[2016-11-29] MEDS: OLANZapine 10 MG TAB G-TUBE SCH (09:41)
[2016-11-29] MEDS: METOPROLOL TARTRATE 25 MG TAB G-TUBE SCH (09:41)
[2016-11-29] MEDS: ATORVASTATIN 20 MG TAB G-TUBE SCH (09:41)
[2016-11-29 10:12] VITALS: O2SAT 92
[2016-11-29] MEDS ORDERED: INSULIN DETEMIR 100 UNITS/ML VIAL SQ ONE (10:30)
--- NOTE | 2016-11-29 10:40 | HHI.DS ---
Discharge Summary Admission Date Oct 30, 2016 at 13:40 Discharge Date: Nov 29, 2016 Admitting Diagnosis pulmonary edema, pneumonia, rule out PE (1) Acute hypoxemic respiratory failure ICD Code: J96.01 Diagnosis: Principal (2) Bilateral pulmonary embolism ICD Code: I26.99 (3) COPD exacerbation ICD Code: J44.1 (4) History of stroke ICD Code: Z86.73 (5) Hyperlipidemia ICD Code: E78.5 (6) DM2 (diabetes mellitus, type 2) ICD Code: E11.9 (7) Pneumonia ICD Code: J18.9 (8) Aortic stenosis, mild ICD Code: I35.0 (9) HTN (hypertension) ICD Code: I10 (10) Mastoiditis ICD Code: H70.90 (11) Diarrhea ICD Code: R19.7 (12) Delirium ICD Code: R41.0 Diagnosis: Principal Procedures PEG tube placement Brief History - From Admission This is a 55-year-old male with a clinical history which includes hypertension, diabetes with diabetic neuropathy, hyperlipidemia, carpal tunnel syndrome, recent pneumonia August 2016 and recent pulmonary embolism August 2016. Patient persists emergency department today with reports of congestion and cough which began gradually on Saturday night into Saturday. Cough is productive of yellow/green sputum. Patient reports he believes he's had subjective fevers on Saturday but does not have a thermometer at home. Patient reports that he has left lower chest pain worse with coughing. Patient also has midsternal chest pain described as a ice pick sensation at rest and with cough. Patient does report diaphoresis, nausea and denies sweats with these symptoms. Patient reports he is fatigued more easily over the past few days and does report slight dizziness with standing or changing positions rapidly. Patient did have musculoskeletal pain with palpation of chest. Patient noted he lives alone and his by mouth intake is, "not that great ." Patient cannot remember the last bowel movement and does note abdominal distention/bloating. Chest x-ray upon arrival to the emergency department reveals ulnar vascular congestion worse since August 2017 since consistent with pneumonia. CBC/BMP: 11/25/16 1110 11/25/16 1110 Imaging Last Impressions Neck CT 11/21/16 0000 Signed Impressions: Service Date/Time: Monday, November 21, 2016 12:02 - CONCLUSION: 1. Symmetric prominence of the tonsillar pillars bilaterally suggesting some tonsillar swelling. No significant mucosal enhancement is seen. 2. There is coating of the mucosal surfaces of the oropharynx secondary to the patient's previous barium swallow study. 3. Degenerative changes in cervical spine. 4. Air-fluid levels in both maxillary sinuses. Raudel Santizo MD Modified Barium Swallow 11/21/16 0000 Signed Impressions: Service Date/Time: Monday, November 21, 2016 00:00 - CONCLUSION: Aspiration of multiple consistencies of barium contrast. Kush Vigil MD Chest X-Ray 11/17/16 0000 Signed Impressions: Service Date/Time: Thursday, November 17, 2016 08:56 - CONCLUSION: 1. Improved aeration lung staley compared to the prior exam. 2. Mild left lower lung atelectasis. Julián Perez MD Head CT 11/15/16 0000 Signed Impressions: Service Date/Time: October 23:57 - CONCLUSION: 1. No acute intracranial abnormalities. Bilateral maxillary and right sphenoid sinus disease. Moy Pederson MD Abdomen/Pelvis CT 11/15/16 0000 Signed Impressions: Service Date/Time: October 16:40 - CONCLUSION: Colonic diverticulosis without evidence of active inflammatory disease. Moderate to large amount retained stool. No evidence of obstruction, ileus, free air or abnormal fluid collections. Cholelithiasis. Yousif Van MD Upper Extremity Ultrasound 11/10/16 0000 Signed Impressions: Service Date/Time: Thursday, November 10, 2016 13:28 - CONCLUSION: 1. Nonocclusive thrombus in the right internal jugular vein. 2. Occlusive thrombus in the left cephalic vein. Guerrero Johnston MD Lower Extremity Ultrasound 11/10/16 0000 Signed Impressions: Service Date/Time: Thursday, November 10, 2016 13:04 - CONCLUSION: No DVT. Guerrero Johnston MD Brain MRI 11/09/16 0000 Signed Impressions: Service Date/Time: Wednesday, November 09, 2016 09:48 - CONCLUSION: 1. No acute infarct or other acute intracranial abnormality. 2. Mild, nonspecific chronic white matter signal changes. 3. Pansinusitis and apparent bilateral mastoiditis. Guerrero Cummings MD Skull X-Ray 11/08/16 0000 Signed Impressions: Service Date/Time: October 16:26 - CONCLUSION: No MRI incompatible foreign body is identified. Guerrero Cummings MD Myocardial Perfusion Scan [facility] [place] [facility] 11/02/16 0600 Signed Impressions: Service Date/Time: Wednesday, November 02, 2016 09:10 - CONCLUSION: 1. Large sized moderate severity fixed defect involving the inferolateral wall including the apex. Ischemia is not excluded. No wall motion abnormalities are identified RISK CATEGORY: Intermediate (1-3%% Annual Mortality Rate) Ben Aden MD CT Angiography 10/30/16 0000 Signed Impressions: Service Date/Time: Sunday, October 30, 2016 14:54 - CONCLUSION: The multiple pulmonary emboli seen in August have completely resolved. I don't see any residual emboli on today's exam. There is new airspace disease in the left upper lobe possible pneumonia. Garett Layton MD Abdomen X-Ray 10/30/16 0000 Signed Impressions: Service Date/Time: Sunday, October 30, 2016 14:47 - CONCLUSION: Normal examination. Bony prominence of the right pubic symphysis Garett Layton MD PE at Discharge GENERAL: This is a well-nourished, well-developed patient in [facility]. SKIN: No rashes, ecchymoses or lesions. Diaphoretic. HEAD: Atraumatic. Normocephalic. No temporal or scalp tenderness. EYES: Extraocular motions intact. No scleral icterus. No injection or drainage. CARDIOVASCULAR: Regular rate and rhythm without murmurs, gallops, or rubs. RESPIRATORY: CTAB. GASTROINTESTINAL: Abdomen soft, nondistended. Tender to palpation around PEG tube. MUSCULOSKELETAL: Extremities without clubbing, cyanosis or edema. NEUROLOGICAL: Awake and alert. No focal deficits. Motor and sensory grossly within normal limits. Five out of 5 muscle strength in all muscle groups. Normal speech. PSYCH: Mood and affect appropriate. . Pt update on day of discharge The pt was anxious to go home. He said he has been eating well. He wanted something for pain control. Discussed with nursing. Hospital Course HCAP/ Acute respiratory failure/ COPD The patient was given Rocephin and azithromycin in the emergency department. He was recently treated for bilateral pneumonia. CT showed left upper airspace disease. He required BiPAP for a period of time. ABG did show hypercarbic respiratory failure. He required intubation. He was extubated 11/12. S/p vancomycin and Zosyn. Pulmonology was consulted. He received Duonebs standing and as needed. S/p Solu-Medrol. He received BiPAP as needed. He worked with PT/ OT. He was diuresed. He completed a course of Levaquin per ID. He received oxygen and nebs as needed. He was given incentive spirometry. He had a home oxygen walk test prior to discharge. He will follow up with pulmonology as an outpt. Acute encephalopathy Head CT unremarkable except for sinus disease, s/p antibiotics. Psychiatry was consulted. He was started on olanzapine. Delirium seemed to get worse when on narcotics, so those were discontinued. He worked with PT and OT. He will follow up with his PCP upon discharge. Dysphagia/ Odynophagia Started on fluconazole, as well as nystatin swish and swallow. He failed a barium swallow. GI was consulted. Tonsillar hypertrophy was noted on CT. ENT was consulted and they recommended a PET CT scan to further evaluate the oropharynx, which the pt will need to obtain as an outpt. PEG tube was placed by GI. He was started on tube feedings with free water flushes. ST started a mechanical soft diet with thickened liquids. He will need to work with speech therapy as an outpt. Chest pain with mildly elevated troponin Troponin peaked at 0.58. The pt has had elevated trops in the past s/t pneumonia. EKG revealed sinus rhythm with inverted T waves in V6 and slight ST depression. Recent cardiac echocardiogram 08/29/2016 showed EF 55-60%. Cardiology was consulted. Echo with EF 50-55%, mild . Stress test with: Large sized moderate severity fixed defect involving the inferolateral wall including the apex; Ischemia is not excluded; No wall motion abnormalities. He was monitored on telemetry. He was continued on losartan, metoprolol, aspirin and atorvastatin. Diabetes mellitus insulin-dependent Patient takes Lantus 45 units twice a day at home. Hemoglobin A1c 08/03/2016 9.3% . Levemir was adjusted to 8 units BID along with an insulin sliding scale. He will continue Levemir and sliding scale and will adjust as needed. He will follow up with his PCP. History of pulmonary venous embolism CTA negative for PE. He was continued on Xarelto. Pt Condition on Discharge: Fair Discharge Disposition: Disch w/ Home Health Serv Discharge Time: > 30 minutes Discharge Instructions DIET: Follow Instructions for: Diabetic Diet, On Tube Feeding Speech Therapy-Diet Recommends: Honey Thickened Liquids, Mechanical Soft, Chopped Meat w/Gravy Additional Diet Instructions: Glucerna 2 cans via PEG tube every 6 hours, at 7 AM, 1 PM, 7 PM. Free water flushes, 100 mL every 3 hours. Insulin sliding scale coverage prior to each bolus feeding. Activities you can perform: Regular-No Restrictions Follow up Referrals: Ear Nose Throat - 1 Week with Dwayne Vines DO Gastroenterology - 2 Weeks with Sarah De Souza MD PCP Follow-up - 2-3 Days Pulmonology - 1 Week with Jhonathan Singleton MD New Medications: Insulin Aspart Inj (Novolog Inj) 100 Unit/Ml Inj 1 INJECTION SQ ACHS SLIDING SCALE Blood Sugar Management Days 30 INJECTION Insulin Detemir Inj (Levemir Inj) 1,000 unit/ 10 ML Vial 12 UNITS SQ DAILY Blood Sugar Management #30 INJECTION Insulin Detemir Inj (Levemir Inj) 1,000 unit/ 10 ML Vial 8 UNITS SQ HS Blood Sugar Management #30 INJECTION Ipratropium-Albuterol Neb (Duoneb) 0.5-2.5 Mg/3 Ml Neb 1 AMPULE NEB Q4HR NEB PRN SOB/WHEEZING Days 30 ML Ipratropium-Albuterol Neb (Duoneb) 0.5-2.5 Mg/3 Ml Neb 1 AMPULE NEB TID NEB Asthma Management Days 30 ML Olanzapine (Olanzapine) 10 Mg Tab 10 MG PEG HS sleep Days 30 TAB Rivaroxaban (Xarelto) 20 Mg Tab 20 MG PO DAILY PE Days 30 TAB Tamsulosin (Flomax) 0.4 Mg Cap 0.4 MG PEG DAILY urination Days 30 CAP Changed Medications: Aspirin DR (Aspirin EC) 81 Mg Tabdr 81 MG PEG DAILY cad #30 TAB (Changed from: PO) Atorvastatin (Atorvastatin) 20 Mg Tab 20 MG PEG DAILY Cholesterol Management #30 Ref 0 TAB (Changed from: PO) Losartan (Losartan) 25 Mg Tab 50 MG PEG DAILY Blood Pressure Management #30 Ref 0 TAB (Changed from: PO) Magnesium Oxide (Magnesium Oxide) 400 Mg Tab 400 MG PEG DAILY Nutritional Supplement Days 30 Ref 0 TAB (Changed from: PO) Metoprolol Tartrate (Metoprolol Tartrate) 25 Mg Tab 25 MG PEG BID heart #60 Ref 0 TAB (Changed from: PO) Pantoprazole (Pantoprazole) 40 Mg Tab 40 MG PEG DAILY Reflux #30 Ref 0 TAB (Changed from: PO) Pregabalin (Lyrica) 75 Mg Cap 75 MG PEG BID Depression Control #60 Ref 0 CAP (Changed from: PO) Discontinued Medications: Insulin Aspart Inj (Novolog Inj) 1,000 Unit/10 Ml Vial 0 SQ DIRECTED Sliding Scale as directed. Blood Sugar Management #10 Ref 0 ML Insulin Glargine Inj (Lantus Inj) 1,000 Unit/10 Ml Vial 45 UNITS SQ BID Blood Sugar Management Ref 0 VIAL Rivaroxaban (Xarelto) 15 Mg Tab 15 MG PO BID #42 TAB Samir Nick DO Nov 29, 2016 10:40
[2016-11-29] MEDS ORDERED: LEVEMIR SQ ×2 (10:51)
[2016-11-29 13:10] VITALS: BP 90/60; PULSE 76; RESP 18; TEMP 96.5; O2SAT 98
[2016-11-29] MEDS ORDERED: INSULIN DETEMIR 100 UNITS/ML VIAL SQ SCH (21:00)
[2016-11-30] MEDS ORDERED: INSULIN DETEMIR 100 UNITS/ML VIAL SQ SCH (09:00)
== END 2016-11-29 15:41 | disposition home health service (06) | DRG 207 ==
LOC: NEPC 10:27 → NEDA 13:40 → NEDH 17:18 → NEPFCDU 18:07 → HIMW 10-31 01:20 → N07A 11-02 01:50 → N03A 11-04 00:36 → HOCB 11-12 17:09 → HIMN 11-16 11:50 → N05B 11-19 13:33
PROVIDERS: ADMIT Hospitalist; ATTEND Hospitalist
PROC: 5A09357 Assistance with Respiratory Ventilation, Less than 24 Consecutive Hours, Continuous Positive Airway Pressure (ICD-10-PCS; 2016-10-31)
PROC: 5A1955Z Respiratory Ventilation, Greater than 96 Consecutive Hours (ICD-10-PCS; 2016-11-04)
PROC: 0BH17EZ Insertion of Endotracheal Airway into Trachea, Via Natural or Artificial Opening (ICD-10-PCS; 2016-11-04)
PROC: 0B21XEZ Change Endotracheal Airway in Trachea, External Approach (ICD-10-PCS; 2016-11-09)
PROC: 0DH63UZ Insertion of Feeding Device into Stomach, Percutaneous Approach (ICD-10-PCS; 2016-11-22)
PROC: 0DB38ZX Excision of Lower Esophagus, Via Natural or Artificial Opening Endoscopic, Diagnostic (ICD-10-PCS; 2016-11-22)
PROC: 0DB68ZX Excision of Stomach, Via Natural or Artificial Opening Endoscopic, Diagnostic (ICD-10-PCS; 2016-11-22)
PROC: 0T9B70Z Drainage of Bladder with Drainage Device, Via Natural or Artificial Opening (ICD-10-PCS; principal; 2016-11-27)
DX: J44.0 Chronic obstructive pulmonary disease with (acute) lower respiratory infection (principal); G93.40 Encephalopathy, unspecified; A41.9 Sepsis, unspecified organism; J96.21 Acute and chronic respiratory failure with hypoxia; J18.9 Pneumonia, unspecified organism; N17.9 Acute kidney failure, unspecified; J96.22 Acute and chronic respiratory failure with hypercapnia; I69.354 Hemiplegia and hemiparesis following cerebral infarction affecting left non-dominant side; B37.0 Candidal stomatitis; B18.9 Chronic viral hepatitis, unspecified; J44.1 Chronic obstructive pulmonary disease with (acute) exacerbation; R13.12 Dysphagia, oropharyngeal phase; E11.22 Type 2 diabetes mellitus with diabetic chronic kidney disease; E11.40 Type 2 diabetes mellitus with diabetic neuropathy, unspecified; E87.70 Fluid overload, unspecified; I12.9 Hypertensive chronic kidney disease with stage 1 through stage 4 chronic kidney disease, or unspecified chronic kidney disease; B19.20 Unspecified viral hepatitis C without hepatic coma; E78.5 Hyperlipidemia, unspecified; I69.398 Other sequelae of cerebral infarction; Z86.711 Personal history of pulmonary embolism; Z87.891 Personal history of nicotine dependence; Z87.01 Personal history of pneumonia (recurrent); R11.10 Vomiting, unspecified; G56.00 Carpal tunnel syndrome, unspecified upper limb; R74.8 Abnormal levels of other serum enzymes; Z79.4 Long term (current) use of insulin; Z79.02 Long term (current) use of antithrombotics/antiplatelets; Y95 Nosocomial condition; I08.3 Combined rheumatic disorders of mitral, aortic and tricuspid valves; F40.240 Claustrophobia; R33.9 Retention of urine, unspecified; Z78.1 Physical restraint status; R00.0 Tachycardia, unspecified; L25.9 Unspecified contact dermatitis, unspecified cause; H70.90 Unspecified mastoiditis, unspecified ear; D64.9 Anemia, unspecified; I25.10 Atherosclerotic heart disease of native coronary artery without angina pectoris; K57.90 Diverticulosis of intestine, part unspecified, without perforation or abscess without bleeding; M79.1 Myalgia; J35.1 Hypertrophy of tonsils; G89.29 Other chronic pain; K44.9 Diaphragmatic hernia without obstruction or gangrene; K20.9 Esophagitis, unspecified; Z23 Encounter for immunization
CPT/HCPCS: 31500; 36600; 70450; 70491; 70551; 71010; 71275; 74000; 74177; 74230; 76937; 78452; 80048; 80053; 80069; 80076; 80202; 81001; 82140; 82272; 82565; 82607; 82805; 82947; 82948; 83605; 83690; 83735; 83880; 84100; 84443; 84484; 85007; 85025; 85027; 85610; 85730; 86403; 87040; 87070; 87205; 87449; 87493; 87641; 87804; 88305; 88312; 90732; 93005; 93017; 93306; 93970; 94002; 94003; 94150; 94620; 94640; 94664; 94667; 94668; 95819; 96374; 96375; A9502; C9113; C9399; J0330; J0456; J0692; J0696; J1170; J1450; J1630; J1644; J1815; J1885; J1940; J1956; J2060; J2250; J2405; J2543; J2785; J2920; J3010; J3370; J3480; J3486; J7030; J7040; J7050; J7120; J7512; P9047; Q9963; Q9967

== ENCOUNTER 2017-02-10 12:04 | Inpatient (IN) | payer OTHER ==
[~2017-02-10] VITALS: Ht 177.8 cm; Wt 90.8 kg
[2017-02-10] VITALS (10 sets, daily range): BP systolic 122–155; BP diastolic 73–94; PULSE 73–110; RESP 16–22; TEMP 97.4–97.7; O2SAT 86–95
[~2017-02-10 12:04] MED LIST changes: +ASPI81TA11 PEG; -ASPI81TA11 PO; +ATOR20TA15 PEG; -ATOR20TA15 PO; +IPRASOL NEB; -LANTUS2P SQ; +LEVEMIR SQ; +LOSA25TA PEG; -LOSA25TA PO; +LYRI75CA PEG; -LYRI75CA PO; +MAGN400T2 PEG; -MAGN400T2 PO; +METO25TA3 PEG; -METO25TA3 PO; -NOVOLOGP2 SQ; +NOVOLOGSS SQ; +OLAN10TA PEG; +PANT40TA3 PEG; -PANT40TA3 PO; +TAMS5CAP PEG; -VENL75CA44 PO; -XARE15TA PO; +XARE20TA PO
--- NOTE | 2017-02-10 12:11 | PD ---
HPI Chief Complaint: left rib pain Time Seen by Provider: 12:06 Travel History International Travel<30 days: No Contact w/Intl Traveler<30days: No Traveled to known affect area: No History of Present Illness HPI Patient presents via [facility] with left rib pain. Reports tripping over shoes and falling onto a coffee table into his left ribs. Denies any head trauma. Denies loss of consciousness. Pain with deep inspiration. History of diabetes with elevated blood sugar, hypertension and COPD. PFSH Past Medical History Hx Anticoagulant Therapy: Yes Heart Rhythm Problems: No Cancer: No Cardiovascular Problems: Yes High Cholesterol: Yes Chest Pain: Yes Congestive Heart Failure: No COPD: Yes Cerebrovascular Accident: Yes Diabetes: Yes Diminished Hearing: No Endocrine: Yes GERD: Yes Genitourinary: No Hypertension: Yes Immune Disorder: No Implanted Vascular Access Dvce: No Musculoskeletal: No Neurologic: Yes Psychiatric: No Reproductive: No Respiratory: Yes (PULMONARY EMBOLISM) Pneumonia: Yes Thyroid Disease: No Past Surgical History Abdominal Surgery: No Cardiac Surgery: No Ear Surgery: No Endocrine Surgery: No Eye Surgery: Yes Genitourinary Surgery: No Gynecologic Surgery: No Neurologic Surgery: No Oral Surgery: Yes Thoracic Surgery: No Other Surgery: Yes Social History Alcohol Use: No (QUIT 05/2016) Tobacco Use: No Substance Use: No Allergies-Medications (Allergen,Severity, Reaction): Coded Allergies: Morphine (Verified Allergy, Mild, 02/10/17) Reported Meds & Prescriptions Reported Meds & Active Scripts Active Hydrocodone-Acetaminophen 5-325 mg Tab 1 Tab PO Q6H PRN Xarelto (Rivaroxaban) 20 Mg Tab 20 Mg PO DAILY 30 Days Reported Lyrica (Pregabalin) 75 Mg Cap 75 Mg PO BID Protonix (Pantoprazole Sodium) 40 Mg Tab 40 Mg PO DAILY Olanzapine 10 Mg Tab 10 Mg PO HS Metoprolol Tartrate 25 Mg Tab 25 Mg PO BID Magnesium Oxide 400 Mg Tab 400 Mg PO DAILY Losartan (Losartan Potassium) 50 Mg Tab 50 Mg PO DAILY Lipitor (Atorvastatin Calcium) 20 Mg Tab 20 Mg PO HS Aspirin 81 Mg Chew 81 Mg CHEW DAILY Lantus Inj (Insulin Glargine) 1,000 Unit/10 Ml Vial 15 Units SQ DAILY Metformin (Metformin HCl) 1,000 Mg Tab 1,000 Mg PO BIDPC With meals Review of Systems General / Constitutional: No: Fever Eyes: No: Visual changes HENT: No: Headaches Cardiovascular: No: Chest Pain or Discomfort Respiratory: No: Shortness of Breath Gastrointestinal: No: Abdominal Pain Genitourinary: No: Dysuria Musculoskeletal: No: Pain Skin: No Rash Neurologic: No: Weakness Psychiatric: No: Depression Endocrine: No: Polydipsia Hematologic/Lymphatic: No: Easy Bruising Physical Exam Narrative GENERAL: Well-nourished, well-developed patient. SKIN: Focused skin assessment warm/dry. HEAD: Normocephalic. EYES: No scleral icterus. No injection or drainage. NECK: Supple, trachea midline. No JVD or lymphadenopathy. CARDIOVASCULAR: Regular rate and rhythm without murmurs, gallops, or rubs. RESPIRATORY: Breath sounds equal bilaterally. No accessory muscle use. Pain in left ribs with deep inspiration Examination of the chest wall reveals no bony abnormalities ecchymosis there is an area of erythema measuring approximately 3 cm that appears to be in the shape of the corner of a coffee table GASTROINTESTINAL: Abdomen soft, non-tender, nondistended. MUSCULOSKELETAL: No cyanosis, or edema. BACK: Nontender without obvious deformity. No CVA tenderness. Data Data Last Documented VS Vital Signs Date Time Temp Pulse Resp B/P Pulse Ox O2 Delivery O2 Flow Rate FiO2 02/10/17 13:38 94 Nasal Cannula 2 02/10/17 13:33 82 16 122/73 02/10/17 12:09 97.6 Orders Ribs, Uni (W/Exp Cxr-Min 3vw) (02/10/17 ) Ketorolac Inj (Toradol Inj) (02/10/17 12:15) Ketorolac Inj (Toradol Inj) (02/10/17 12:30) Hydromorphone Pf Inj (Dilaudid Pf Inj) (02/10/17 12:30) Ondansetron Inj (Zofran Inj) (02/10/17 12:30) Resp Home Oxygen Walk Test (02/10/17 ) Admit Order (Ed Use Only) (02/10/17 ) Diet 1800 Ada Cons Carb (02/10/17 Lunch) Activity Oob With Assistance (02/10/17 13:51) ^ Saline Lock (02/10/17 13:51) Resp Oxygen Onel C Titrat 1-4 L (02/10/17 ) Notify Dr: Other (02/10/17 13:51) Ondansetron Inj (Zofran Inj) (02/10/17 14:00) Acetaminophen (Tylenol) (02/10/17 14:00) Sodium Chloride 0.9% Flush (Ns Flush) (02/10/17 21:00) Sodium Chloride 0.9% Flush (Ns Flush) (02/10/17 14:00) Resp Incentive Spirometry (02/10/17 ) MDM Medical Decision Making Medical Screen Exam Complete: Yes Emergency Medical Condition: Yes Differential Diagnosis Pneumothorax, rib fracture, chest wall contusion, pulmonary contusion Narrative Course Assessment and plan discussed with patient at bedside. Last 72 hours Impressions Ribs X-Ray 02/10/17 0000 Signed Impressions: Service Date/Time: Friday, February 10, 2017 12:21 - CONCLUSION: 1. No perceptible rib fracture. 2. Left base atelectasis. No hemothorax or pneumothorax. Guerrero Cummings MD 91% sat on room air, patient states this is his baseline secondary to COPD Prior to discharge patient was found to be hypoxic with sats running between 83 and 88%, diaphoretic as well. Physician Communication Physician Communication Spoke to Dr. Patel who is in agreement will admit for observation Diagnosis Primary Impression: Hypoxia Additional Impression: Contusion of rib on left side Qualified Code: S20.212A - Contusion of rib on left side, initial encounter Patient Instructions: Narcotic given in the ED, General Instructions Additional Instructions: Encouraged deep inspiration, pain medication as needed. Follow-up with PCP. Return to emergency room with any onset of new symptoms. Med/Other Pt SpecificInfo: Prescription(s) given Scripts Hydrocodone-Acetaminophen 5-325 mg Tab1 Tab PO Q6H PRN (PAIN) #30 TAB Ref 0 Prov:Isiah Mills MD 02/10/17 Disposition: 01 DISCHARGE HOME Condition: Good Isiah Mills MD Feb 10, 2017 12:10
[2017-02-10] MEDS ORDERED: KETOROLAC TROMETHAMINE 60 MG/2 ML (IM) VIAL IM ONE (12:15)
[2017-02-10] MEDS ORDERED: ONDANSETRON HCL 4 MG/2 ML VIAL IV PUSH ONE (12:30)
[2017-02-10] MEDS ORDERED: KETOROLAC TROMETHAMINE 30 MG/ML (IVP) VIAL IV PUSH ONE (12:30)
[2017-02-10] MEDS ORDERED: HYDROmorphone HCL PF 1 MG/ML VIAL IV PUSH ONE (12:30)
[2017-02-10] MEDS ORDERED: PROT40TA PO (12:44)
[2017-02-10] MEDS ORDERED: LOSA50TA PO (12:44)
[2017-02-10] MEDS ORDERED: METF1000 PO (12:44)
[2017-02-10] MEDS ORDERED: ASPI81CH CHEW (12:44)
[2017-02-10] MEDS ORDERED: LYRI75CA PO (12:44)
[2017-02-10] MEDS ORDERED: LIPI20TA PO (12:44)
[2017-02-10] MEDS ORDERED: OLAN10TA PO (12:44)
[2017-02-10] MEDS ORDERED: MAGN400T2 PO (12:44)
[2017-02-10] MEDS ORDERED: LANTUS2P SQ (12:44)
[2017-02-10] MEDS ORDERED: METO25TA3 PO (12:44)
--- NOTE | 2017-02-10 12:52 | RADHPO ---
EXAM DATE/TIME: 02/10/2017 12:21 [facility] COMPARISON: CHEST SINGLE AP, November 17, 2016, 8:56. INDICATIONS : Short of breath, left chest pain, fell today MEDICAL HISTORY : Chronic obstructive pulmonary disease. Hypercholesterolemia. Hypertension. SURGICAL HISTORY : left shoulder ENCOUNTER: Initial ACUITY: 1 day PAIN SCORE: 10/10 LOCATION: Left chest FINDINGS: There is mild left base atelectasis. No hemothorax or pneumothorax seen. No perceptible rib fracture. Old left clavicle fracture status post screw and plate fixation. 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 CONCLUSION: 1. No perceptible rib fracture. 2. Left base atelectasis. No hemothorax or pneumothorax. Guerrero Cummings MD on February 10, 2017 at 12:49 Board Certified Radiologist. This report was verified electronically.
[2017-02-10] MEDS ORDERED: HYDR-3516 PO (13:29)
[2017-02-10] MEDS ORDERED: SENNOSIDES 8.6 MG TAB PO PRN (14:00)
[2017-02-10] MEDS ORDERED: MAGNESIUM HYDROXIDE SUSP 30 ML CUP PO PRN (14:00)
[2017-02-10] MEDS ORDERED: ONDANSETRON HCL 4 MG/2 ML VIAL IV PRN (14:00)
[2017-02-10] MEDS ORDERED: BISACODYL 10 MG SUPP RECTAL PRN (14:00)
[2017-02-10] MEDS ORDERED: ACETAMINOPHEN 325 MG TAB PO PRN (14:00)
[2017-02-10] MEDS ORDERED: SODIUM CHLORIDE 0.9% FLUSH 10 ML FLUSH IV FLUSH PRN (14:00)
[2017-02-10] MEDS ORDERED: ACETAMINOPHEN/HYDROcodone 325 MG/5 MG TAB PO PRN (14:00)
[2017-02-10] MEDS ORDERED: NALOXONE HCL 0.4 MG/ML AMP IV PRN (14:00)
[2017-02-10] MEDS ORDERED: LACTULOSE SYRUP 20 GM/30 ML CUP PO PRN (14:00)
[2017-02-10] MEDS ORDERED: SODIUM CHLORIDE 0.9% FLUSH 10 ML FLUSH IVF PRN (14:00)
[2017-02-10] MEDS ORDERED: RESP: ALBUTEROL 2.5 MG/IPRATROPIUM 0.5 MG NEB (SCH) NEB ONE (14:15)
[2017-02-10 14:23] LABS: BLOOD GAS CARBOXYHEMOGLOBIN 3.8 % (0-4); BLOOD GAS HCO3 22 mmol/L (22-26); BLOOD GAS METHEMOGLOBIN 1.4 % (0-2); BLOOD GAS O2 HGB SATURATION 81 % (90-100); BLOOD GAS OXYGEN CONTENT 14.4 Vol % (12.0-20.0); BLOOD GAS PCO2 48 mmHG (38-42); BLOOD GAS PO2 53 mmHG (61-120); BLOOD GAS TOTAL HGB 12.6 G/DL (12.0-16.0); CRITICAL VALUE YES; TEMP CORR TO 98.6
[2017-02-10 14:24] LABS: DRAW SITE RT RADIAL; FIO2 21 %; NUMBER OF ARTERIAL PUNCTURES 1; OXYGEN DEVICE ROOM AIR; STAT YES; ULNAR PULSE PRESENT
[2017-02-10 14:31] LABS: CHLORIDE 107 MEQ/L (98-107); POTASSIUM 6.1 MEQ/L (3.5-5.1); SODIUM (NA) 139 MEQ/L (136-145)
[2017-02-10 14:32] LABS: AUTOMATED NEUTROPHIL # 6.7 TH/MM3 (1.8-7.7); BASOPHIL # 0.2 TH/MM3 (0-0.2); BASOPHIL % 1.8 % (0.0-2.0); EOSINOPHIL # 0.1 TH/MM3 (0-0.4); EOSINOPHIL % 1.1 % (0.0-4.0); HEMATOCRIT 36.2 % (39.0-51.0); LYMPH % 13.3 % (9.0-44.0); LYMPHOCYTE # 1.2 TH/MM3 (1.0-4.8); MEAN CORPUSCULAR HEMOGLOBIN 30.4 PG (27.0-34.0); MEAN CORPUSCULAR HGB CONC 34.6 % (32.0-36.0); MONO % 7.5 % (0.0-8.0); NEUT % 76.3 % (16.0-70.0); PLATELET COUNT 148 TH/MM3 (150-450); RED BLOOD COUNT 4.11 MIL/MM3 (4.50-5.90); RED CELL DISTRIBUTION WIDTH 14.5 % (11.6-17.2); WHITE BLOOD COUNT 8.9 TH/MM3 (4.0-11.0)
[2017-02-10 14:34] LABS: ANION GAP 7 MEQ/L (5-15); BICARBONATE 24.7 MEQ/L (21.0-32.0)
[2017-02-10 14:35] LABS: BLOOD UREA NITROGEN 30 MG/DL (7-18)
[2017-02-10 14:43] LABS: HEMO FLAGS DIFF FINAL
[2017-02-10 14:52] LABS: ALT (GPT) 25 U/L (12-78); AST (GOT) 18 U/L (15-37)
[2017-02-10 14:53] LABS: GLOMERULAR FILTRATION RATE 69 ML/MIN (>89)
--- NOTE | 2017-02-10 14:53 | RADHPO ---
EXAM DATE/TIME: 02/10/2017 14:41 [facility] COMPARISON: RIBS LEFT(W PA CXR MIN 3VWS), February 10, 2017, 12:21. CHEST SINGLE AP, November 17, 2016, 8:56. INDICATIONS : Short of breath, chest pain, COPD, Drop in spo2 rate, pre admit. MEDICAL HISTORY : Chronic obstructive pulmonary disease. Hypercholesterolemia. Hypertension. SURGICAL HISTORY : shoulder ENCOUNTER: Subsequent ACUITY: 1 day PAIN SCORE: 10/10 LOCATION: Bilateral chest FINDINGS: Lung volumes are small. Mild atelectasis again seen at the left base and mild atelectasis developing at the right base. No pleural effusion demonstrated. No pneumothorax. Heart size stable within normal limits. CONCLUSION: Developing atelectasis of the right base and modest worsening of atelectasis of the left base. Guerrero Cummings MD on February 10, 2017 at 14:50 Board Certified Radiologist. This report was verified electronically.
[2017-02-10 14:54] LABS: TOTAL BILIRUBIN ADULT 0.5 MG/DL (0.2-1.0)
[2017-02-10 14:55] LABS: ALKALINE PHOSPHATASE 98 U/L (45-117)
[2017-02-10] MEDS ORDERED: SODIUM POLYSTYRENE SULFONATE SUSP 15 GM/60 ML CUP PO ONE (15:00)
[2017-02-10] MEDS ORDERED: INSULIN HUMAN REGULAR 1,000 UNITS/10 ML VIAL IV PUSH ONE (15:00)
[2017-02-10] MEDS ORDERED: CALCIUM GLUCONATE INJ 1 GM in SODIUM CHLORIDE 0.9% INJ 100 ML IV ONE (15:15)
[2017-02-10 15:36] LABS: MAGNESIUM 1.2 MG/DL (1.5-2.5)
--- NOTE | 2017-02-10 15:56 | HHI.HP ---
HPI Service [facility] Primary Care Physician Unknown Admission Diagnosis hypoxia Diagnoses: Travel History International Travel<30 Days: No Contact w/Intl Traveler <30 Da: No Traveled to Known Affected Are: No History of Present Illness 48-year-old male with a history of diabetes, COPD, hypertension, pulmonary embolism on antibiotic regulation, who presents having . Stopped mechanical fall this morning around 4 AM. He tripped over shoes, partially breaking his fall, however hitting his chest on the coffee table. No loss of consciousness. Denies any lightheadedness or dizziness. He presents intense left-sided pleuritic chest pain secondary to injury, however tried to go back to sleep, however woke up with extreme sharp, left-sided pleuritic chest pain, unable to take deep breath due to pain. Upon presenting to the ED, he was given Dilaudid and Toradol, with minimal improvement in pleuritic pain, however was found to have oxygen saturation of 83% on room air. Baseline is 91% on room air. Patient currently reports that he is feeling anxious, afraid of deep breathing because of left-sided pleuritic chest pain, and is also diaphoretic. Patient denies any lightheadedness or dizziness. Denies any nausea or vomiting. Has no other complaints. He reports prior to this injury, he felt fine, with no chest pain, shortness of breath, nausea, vomiting. History is somewhat limited secondary to patient's shallow breathing. Review of Systems Performed and negative except for history of present illness and past medical history. Past Family Social History Past Medical History Hypertension Diabetes Diabetic neuropathy Hyperlipidemia Carpal tunnel syndrome History of CVA History of pulmonary embolism COPD Recent admission to [facility] with pneumonia GERD Claustrophobia Past Surgical History Left shoulder orthopedic surgery Left clavicle ORIF. Hospitalization in October with PEG tube placement. Subsequently removed. denies any issues swallowing Reported Medications Reported Meds & Active Scripts Active Hydrocodone-Acetaminophen 5-325 mg Tab 1 Tab PO Q6H PRN Xarelto (Rivaroxaban) 20 Mg Tab 20 Mg PO DAILY 30 Days Reported Lyrica (Pregabalin) 75 Mg Cap 75 Mg PO BID Protonix (Pantoprazole Sodium) 40 Mg Tab 40 Mg PO DAILY Olanzapine 10 Mg Tab 10 Mg PO HS Metoprolol Tartrate 25 Mg Tab 25 Mg PO BID Magnesium Oxide 400 Mg Tab 400 Mg PO DAILY Losartan (Losartan Potassium) 50 Mg Tab 50 Mg PO DAILY Lipitor (Atorvastatin Calcium) 20 Mg Tab 20 Mg PO HS Aspirin 81 Mg Chew 81 Mg CHEW DAILY Lantus Inj (Insulin Glargine) 1,000 Unit/10 Ml Vial 15 Units SQ DAILY Metformin (Metformin HCl) 1,000 Mg Tab 1,000 Mg PO BIDPC With meals Allergies: Coded Allergies: Morphine (Verified Allergy, Mild, 02/10/17) Family History Reviewed with the patient and found to be currently noncontributory. Social History Patient reports long history of smoking, however quit recently, last cigarette was 2 days ago. Eyes any alcohol use. Denies any illicit drugs. Physical Exam Vital Signs Vital Signs Date Time Temp Pulse Resp B/P Pulse Ox O2 Delivery O2 Flow Rate FiO2 02/10/17 14:35 95 Nasal Cannula 3.00 02/10/17 14:28 91 Nasal Cannula 2.00 02/10/17 14:15 86 21 02/10/17 13:38 94 Nasal Cannula 2 02/10/17 13:33 82 16 122/73 87 Room Air 02/10/17 12:09 97.6 110 18 155/94 90 Room Air 02/10/17 12:09 94 Nasal Cannula 2 Physical Exam GENERAL: This is a well-nourished, well-developed patient, appears in moderate pain, and resultant respiratory distress. He is alert and oriented 3. Diaphoretic SKIN: No rashes, ecchymoses or lesions. Cool and dry. HEAD: Atraumatic. Normocephalic. No temporal or scalp tenderness. EYES: Pupils equal round and reactive. Extraocular motions intact. No scleral icterus. No injection or drainage. ENT: Nose without bleeding, purulent drainage or septal hematoma. Throat without erythema, tonsillar hypertrophy or exudate. Uvula midline. Airway patent. NECK: Trachea midline. No JVD or lymphadenopathy. Supple, nontender, no meningeal signs. CARDIOVASCULAR: Regular rate and rhythm without murmurs, gallops, or rubs. RESPIRATORY: Shallow breathing secondary to splinting. Tenderness to palpation of left anterior 9th-11th rib. no cripitus. Clear to auscultation. Breath sounds equal bilaterally. No wheezes, rales, or rhonchi. GASTROINTESTINAL: Abdomen soft, non-tender, nondistended. No hepato-splenomegaly , or palpable masses. No guarding. MUSCULOSKELETAL: Extremities without clubbing, cyanosis, or edema. No joint tenderness, effusion, or edema noted. No calf tenderness. Negative Homans sign bilaterally. NEUROLOGICAL: Awake and alert. Cranial nerves II through XII intact. Left- sided arm, hand weakness, which patient states is baseline secondary to previous injuries. Normal speech. Laboratory Laboratory Tests Test 02/10/17 02/10/17 14:05 14:18 White Blood Count 8.9 Red Blood Count 4.11 Hemoglobin 12.5 Hematocrit 36.2 Mean Corpuscular Volume 88.0 Mean Corpuscular Hemoglobin 30.4 Mean Corpuscular Hemoglobin 34.6 Concent Red Cell Distribution Width 14.5 Platelet Count 148 Mean Platelet Volume 10.0 Neutrophils (%) (Auto) 76.3 Lymphocytes (%) (Auto) 13.3 Monocytes (%) (Auto) 7.5 Eosinophils (%) (Auto) 1.1 Basophils (%) (Auto) 1.8 Neutrophils # (Auto) 6.7 Lymphocytes # (Auto) 1.2 Monocytes # (Auto) 0.7 Eosinophils # (Auto) 0.1 Basophils # (Auto) 0.2 CBC Comment DIFF FINAL Differential Comment Sodium Level 139 Potassium Level 6.1 Chloride Level 107 Carbon Dioxide Level 24.7 Anion Gap 7 Blood Urea Nitrogen 30 Creatinine 1.10 Estimat Glomerular Filtration 69 Rate Random Glucose 308 Calcium Level 8.6 Total Bilirubin 0.5 Aspartate Amino Transf 18 (AST/SGOT) Alanine Aminotransferase 25 (ALT/SGPT) Alkaline Phosphatase 98 Total Protein 7.4 Albumin 3.9 Blood Gas Puncture Site RT RADIAL Blood Gas Patient Temperature 98.6 Blood Gas HCO3 22 Blood Gas Base Excess -4.0 Blood Gas Oxygen Saturation 81 Arterial Blood pH 7.28 Arterial Blood Partial 48 Pressure CO2 Arterial Blood Partial 53 Pressure O2 Arterial Blood Oxygen Content 14.4 Arterial Blood 3.8 Carboxyhemoglobin Arterial Blood Methemoglobin 1.4 Blood Gas Hemoglobin 12.6 Oxygen Delivery Device ROOM AIR Blood Gas Inspired Oxygen 21 Result Diagram: 02/10/17 1405 02/10/17 1405 Imaging Last Impressions Ribs X-Ray 02/10/17 0000 Signed Impressions: Service Date/Time: Friday, February 10, 2017 12:21 - CONCLUSION: 1. No perceptible rib fracture. 2. Left base atelectasis. No hemothorax or pneumothorax. Guerrero Cummings MD Chest X-Ray 02/10/17 0000 Signed Impressions: Service Date/Time: Friday, February 10, 2017 14:41 - CONCLUSION: Developing atelectasis of the right base and modest worsening of atelectasis of the left base. Guerrero Cummings MD Assessment and Plan Assessment and Plan //Hypoxic respiratory failure //Hypercapnic respiratory failure //Acute respiratory acidosis. -Likely secondary to left rib contusion, with splinting. Also likely exacerbated by Dilaudid IV in the ER. -Avoid narcotics. Close monitoring in ICU. -Duo nebs, pain control with Lidoderm patch, splinting pillow, incentive spirometry and Acapella. -Phosphorus level ordered -If pain not improved by tomorrow, consider nerve root injection. -No signs of infection currently, however if patient develops fever or white count, will will consider treatment for aspiration pneumonia given past history of such during last hospitalization. //Left rib contusion //Status post mechanical fall. -Chest x-ray reviewed with poor inspiration. Some atelectasis. No sign of infection. -With splinting. -Avoid narcotics secondary to hypercapnia. -Lidoderm patch to chest. -Splinting pillow. Incentive spirometry and Acapella. -Duo nebs. //Hyperkalemia. -Likely secondary to acidosis Insulin ordered IV in the ED. Kayexalate ordered. -Telemetry. Duo nebs will be scheduled -Follow up level. //Diabetes mellitus. //Hyperglycemia on admission. -Glucose in the 300s on admission. -Continue home metformin. IV insulin ordered in the ED -No anion gap. Diabetic diet and insulin sliding scale. //Hypertension. Blood pressure acceptable. Continue home medications. Continue to monitor blood pressure. //Hyperlipidemia. Continue home medications. //History of pulmonary embolism. Repeat chest x-ray without any sign of hemothorax. Continue Xarelto. //GERD. Continue home medications. //tobacco abuse. Cessation counseling when stable. //Prophylaxis. Continue home Xarelto. Discussed Condition With Patient, nurse, ED physician. Physician Certification 2 Midnight Certification Type: Admission for Inpatient Services Order for Inpatient Services The services are ordered in accordance with Medicare regulations or non- Medicare payer requirements, as applicable. In the case of services not specified as inpatient-only, they are appropriately provided as inpatient services in accordance with the 2-midnight benchmark. Estimated LOS (days): 3 days is the estimated time the patient will need to remain in the hospital, assuming treatment plan goals are met and no additional complications. Post-Hospital Plan: Not yet determined Crow Patel MD Feb 10, 2017 15:56
[2017-02-10 16:41] LABS: PROTHROMBIN TIME - PATIENT 11.1 SEC (9.8-11.6)
[2017-02-10] MEDS: LIDOCAINE HCL 5% PATCH T-DERMAL SCH (16:58)
[2017-02-10] MEDS: metFORMIN HCL 500 MG TAB PO SCH (17:02)
[2017-02-10] MEDS: INSULIN ASPART SUPPLEMENTAL SCALE SQ SCH ×2 (17:10→21:00)
[2017-02-10 18:11] LABS: BICARBONATE 25.1 MEQ/L (21.0-32.0)
[2017-02-10] MEDS ORDERED: oxyCODONE/ACETAMINOPHEN 10 MG/325 MG TAB PO PRN (20:45)
[2017-02-10] MEDS ORDERED: oxyCODONE/ACETAMINOPHEN 5 MG/325 MG TAB PO PRN (20:45)
[2017-02-10] MEDS: REMOVE OLD LIDOCAINE PATCH T-DERMAL SCH (21:00)
[2017-02-10] MEDS ORDERED: SODIUM CHLORIDE 0.9% FLUSH 10 ML FLUSH IV FLUSH SCH (21:00)
[2017-02-10] MEDS: SODIUM CHLORIDE 0.9% FLUSH 10 ML FLUSH IV FLUSH SCH (21:00)
[2017-02-10] MEDS: DOCUSATE SODIUM 50 MG/SENNA 8.6 MG TAB PO SCH (21:00)
[2017-02-10] MEDS: RESP: ALBUTEROL 2.5 MG/IPRATROPIUM 0.5 MG NEB (SCH) NEB (21:44)
[2017-02-10] MEDS: OLANZapine 5 MG TAB PO SCH (22:06)
[2017-02-10] MEDS: ATORVASTATIN 20 MG TAB PO SCH (22:07)
[2017-02-10] MEDS: METOPROLOL TARTRATE 25 MG TAB PO SCH (22:07)
[2017-02-10] MEDS: PREGABALIN 75 MG CAP PO SCH (22:07)
[2017-02-10] MEDS ORDERED: MAGNESIUM SULFATE 1 GM PREMIX 100 ML IV ONE (23:45)
[2017-02-11] VITALS (8 sets, daily range): BP systolic 107–138; BP diastolic 72–89; PULSE 64–85; RESP 16–20; TEMP 96.3–98.4; O2SAT 91–96
[2017-02-11] MEDS: SODIUM CHLOR 0.45% 1000 ML INJ 1,000 ML IV SCH ×3 (02:06→23:35)
[2017-02-11] MEDS: RESP: ALBUTEROL 2.5 MG/IPRATROPIUM 0.5 MG NEB (SCH) NEB ×4 (03:23→21:24)
[2017-02-11] MEDS ORDERED: KETOROLAC TROMETHAMINE 30 MG/ML (IVP) VIAL IV PUSH ONE (04:00)
[2017-02-11 06:56] LABS: CHLORIDE 109 MEQ/L (98-107); POTASSIUM 4.5 MEQ/L (3.5-5.1); SODIUM (NA) 143 MEQ/L (136-145)
[2017-02-11] MEDS: INSULIN ASPART SUPPLEMENTAL SCALE SQ SCH ×4 (07:00→21:00)
[2017-02-11 07:02] LABS: ANION GAP 7 MEQ/L (5-15); BICARBONATE 27.3 MEQ/L (21.0-32.0); BLOOD UREA NITROGEN 34 MG/DL (7-18)
[2017-02-11 07:04] LABS: AUTOMATED NEUTROPHIL # 4.9 TH/MM3 (1.8-7.7); BASOPHIL % 0.6 % (0.0-2.0); EOSINOPHIL # 0.3 TH/MM3 (0-0.4); EOSINOPHIL % 3.4 % (0.0-4.0); HEMATOCRIT 33.1 % (39.0-51.0); HEMO FLAGS DIFF FINAL; LYMPH % 21.1 % (9.0-44.0); LYMPHOCYTE # 1.6 TH/MM3 (1.0-4.8); MEAN CELL VOLUME 89.8 FL (80.0-100.0); MEAN CORPUSCULAR HEMOGLOBIN 30.4 PG (27.0-34.0); MEAN CORPUSCULAR HGB CONC 33.8 % (32.0-36.0); MONO % 9.3 % (0.0-8.0); NEUT % 65.6 % (16.0-70.0); PLATELET COUNT 120 TH/MM3 (150-450); RED BLOOD COUNT 3.69 MIL/MM3 (4.50-5.90); WHITE BLOOD COUNT 7.5 TH/MM3 (4.0-11.0)
[2017-02-11 07:05] LABS: ALT (GPT) 21 U/L (12-78); AST (GOT) 17 U/L (15-37); GLOMERULAR FILTRATION RATE 81 ML/MIN (>89)
[2017-02-11 07:06] LABS: TOTAL BILIRUBIN ADULT 0.6 MG/DL (0.2-1.0)
[2017-02-11 07:08] LABS: ALKALINE PHOSPHATASE 79 U/L (45-117)
[2017-02-11] MEDS: INSULIN DETEMIR 100 UNITS/ML VIAL SQ SCH (11:54)
[2017-02-11] MEDS: LIDOCAINE HCL 5% PATCH T-DERMAL SCH (11:56)
[2017-02-11] MEDS: RIVAROXABAN 20 MG TAB PO SCH (11:57)
[2017-02-11] MEDS: PREGABALIN 75 MG CAP PO SCH ×2 (11:57→21:19)
[2017-02-11] MEDS: metFORMIN HCL 500 MG TAB PO SCH ×2 (11:58→17:16)
[2017-02-11] MEDS: PANTOPRAZOLE SOD 40 MG DELAYED RELEASE TAB PO SCH (11:58)
[2017-02-11] MEDS: MAGNESIUM OXIDE 400 MG TAB PO SCH (11:58)
[2017-02-11] MEDS: LOSARTAN 50 MG TAB PO SCH (11:58)
[2017-02-11] MEDS: METOPROLOL TARTRATE 25 MG TAB PO SCH ×2 (11:58→21:00)
[2017-02-11] MEDS: DOCUSATE SODIUM 50 MG/SENNA 8.6 MG TAB PO SCH ×2 (11:58→21:00)
[2017-02-11] MEDS: ASPIRIN 81 MG CHEW TAB CHEW SCH (11:58)
[2017-02-11] MEDS: SODIUM CHLORIDE 0.9% FLUSH 10 ML FLUSH IV FLUSH SCH ×2 (11:59→21:20)
--- NOTE | 2017-02-11 12:16 | HHI.PR ---
Subjective Remarks Follow up chest pain. The patient states that he feels a little better today, but continues to have significant pain in the left ribcage. He states that he cannot get out of bed due to the pain. It is worse with movement and deep breaths. Lateral left chest wall at lower rib cage is tender. Objective Vitals Vital Signs Date Time Temp Pulse Resp B/P Pulse Ox O2 Delivery O2 Flow Rate FiO2 02/11/17 10:01 92 Nasal Cannula 2.00 02/11/17 08:22 18 02/11/17 08:00 96.5 75 18 131/82 91 02/11/17 04:22 98.4 64 16 129/89 95 02/11/17 00:53 97.6 85 16 138/72 93 02/10/17 21:45 94 Nasal Cannula 2.00 02/10/17 20:00 97.7 92 18 144/86 94 02/10/17 16:00 97.4 73 22 125/79 92 02/10/17 15:22 74 16 135/81 94 Nasal Cannula 2 02/10/17 14:35 95 Nasal Cannula 3.00 02/10/17 14:28 91 Nasal Cannula 2.00 02/10/17 14:15 86 21 02/10/17 13:38 94 Nasal Cannula 2 02/10/17 13:33 82 16 122/73 87 Room Air 02/10/17 12:09 97.6 110 18 155/94 90 Room Air 02/10/17 12:09 94 Nasal Cannula 2 I/O 02/10/17 02/10/17 02/10/17 02/11/17 02/11/17 02/11/17 07:00 15:00 23:00 07:00 15:00 23:00 # Voids 2 # Bowel Movements 1 Result Diagram: 02/11/17 0605 02/11/17 0605 Imaging Last Impressions Ribs X-Ray 02/10/17 0000 Signed Impressions: Service Date/Time: Friday, February 10, 2017 12:21 - CONCLUSION: 1. No perceptible rib fracture. 2. Left base atelectasis. No hemothorax or pneumothorax. Guerrero Cummings MD Chest X-Ray 02/10/17 0000 Signed Impressions: Service Date/Time: Friday, February 10, 2017 14:41 - CONCLUSION: Developing atelectasis of the right base and modest worsening of atelectasis of the left base. Guerrero Cummings MD Objective Remarks General: No acute distress. Heart: Regular rate and rhythm. No murmur. Lungs: Clear to auscultation bilaterally. No wheezes, rales, or rhonchi. Breathing is nonlabored. There is tenderness over the left lateral chest wall at the lower rib cage. Abdomen: Soft, nontender, nondistended. Extremities: No lower extremity edema. Psych: Alert and oriented. Procedures None Urinary Catheter: No Vascular Central Line Catheter: No A/P Problem List: (1) Contusion of rib on left side ICD Code: S20.212A Status: Acute (2) Intractable pain ICD Code: R52 Status: Acute (3) Hypoxia ICD Code: R09.02 Status: Acute (4) Hyperlipidemia ICD Code: E78.5 Status: Chronic (5) HTN (hypertension) ICD Code: I10 Status: Chronic (6) Diabetes mellitus ICD Code: E11.9 Status: Chronic (7) Hyperkalemia ICD Code: E87.5 Status: Resolved Assessment and Plan 1. Intractable chest wall pain: Status post mechanical fall. Patient has rib cage pain and tenderness. Continue pain control. 2. Hypoxia: Secondary to chest wall pain, difficulty taking deep breaths. Continue supplemental oxygen. Patient is on Xarelto for history of pulmonary embolism. 3. Hyperkalemia: Resolved. 4. Hypertension: Blood pressure is controlled. Continue home medications. 5. Hyperlipidemia: Continue home medications. 6. GERD: Continue home medications. 7. Diabetes mellitus: Patient was hyperglycemic on admission. Continue metformin. Monitor Accu-Cheks and cover with sliding scale insulin. Diabetic diet. 8. DVT prophylaxis: Xarelto. Discharge Planning Anticipate discharge when pain control is improved. Problem Qualifiers (1) Contusion of rib on left side: Qualified Code: S20.212A - Contusion of rib on left side, initial encounter (2) Diabetes mellitus: Adolfo Vegas MD Feb 11, 2017 12:16
[2017-02-11] MEDS ORDERED: oxyCODONE/ACETAMINOPHEN 5 MG/325 MG TAB PO PRN (13:30)
[2017-02-11 15:24] LABS: BLOOD, URINE NEG (NEG); GLUCOSE,URINE 100 mg/dL (NEG); KETONE, URINE NEG (NEG); NITRITE,URINE NEG (NEG); PH, URINE 5.5 (5.0-8.5)
[2017-02-11 15:28] LABS: URINE COLOR YELLOW (YELLW/STRAW)
[2017-02-11 15:32] LABS: AMPHETAMINE, URINE NEG (NEG); BARBITURATES, URINE NEG (NEG)
[2017-02-11 15:33] LABS: COCAINE, URINE NEG (NEG)
[2017-02-11 15:34] LABS: COMMENT (UR) CULT NOT INDICATED; CULTURE IF INDICATED CULT NOT INDICATED; SQUAMOUS EPITHELIAL CELL URINE 0-5 /hpf (0-5)
[2017-02-11] MEDS: oxyCODONE/ACETAMINOPHEN 10 MG/325 MG TAB PO PRN ×2 (16:14→21:21)
--- NOTE | 2017-02-11 18:56 | EKG ---
Date Performed: 02/10/2017 Time Performed: 18:01:42 PTAGE: 56 years EKG: Sinus rhythm . When compared to previous tracing, ST abnormalitis have Improved. Normal ECG PREVIOUS TRACING : 10/31/2016 03.11 DOCTOR: Inocencio Velasco Interpretating Date/Time 02/11/2017 18:55:51
[2017-02-11] MEDS: REMOVE OLD LIDOCAINE PATCH T-DERMAL SCH (21:00)
[2017-02-11] MEDS: OLANZapine 5 MG TAB PO SCH (21:20)
[2017-02-11] MEDS ORDERED: IOHEXOL 350 MG/ML 10 ML VIAL (for RAD DIAG) IV ONE (23:40)
--- NOTE | 2017-02-11 23:52 | RADHPO ---
EXAM DATE/TIME: 02/11/2017 23:13 [facility] COMPARISON: CT ABDOMEN & PELVIS W CONTRAST, November 15, 2016, 16:40. CT PULMONARY ANGIOGRAM, October 30, 2016, 14 :54. INDICATIONS : Left side chest pain and shortness of breath. IV CONTRAST: 75 cc Omnipaque 350 (iohexol) IV RADIATION DOSE: 20.92 CTDIvol (mGy) MEDICAL HISTORY : Hypertension. Chronic obstructive pulmonary disease. Diabetes. Pulmonary embolism. SURGICAL HISTORY : Left clavicle surgery. ENCOUNTER: Initial ACUITY: 2 days PAIN SCALE: 10/10 LOCATION: Left chest TECHNIQUE: Volumetric scanning of the chest was performed using a pulmonary embolism protocol MIP images were re constructed. Using automated exposure control and adjustment of the mA and/or kV according to patien t size, radiation dose was kept as low as reasonably achievable to obtain optimal diagnostic quality images. FINDINGS: The previously seen left upper lobe air space process has resolved, however fairly extensive bilatera l lower lobe parenchymal consolidations are present with infiltrates involving right middle lobe and lingula lower segment not present previously. There is no pleural effusion. No appreciable patholog ical adenopathy is seen within the mediastinum. There is no evidence for PE for technique. The gallbl adder demonstrates multiple stones without gallbladder wall thickening, or pericholecystic fluid. CONCLUSION: Resolution of the previously seen left upper lobe air space process with interval dev elopment of bilateral lower lobe, right middle lobe and lingular infiltrates most likely pneumonia. Beatriz So MD on February 11, 2017 at 23:47 Board Certified Radiologist. This report was verified electronically.
[2017-02-12] VITALS (7 sets, daily range): BP systolic 125–202; BP diastolic 64–133; PULSE 87–98; RESP 18–20; TEMP 95.5–98.7; O2SAT 92–96
[2017-02-12] MEDS ORDERED: RESP: ALBUTEROL 2.5 MG/IPRATROPIUM 0.5 MG NEB (SCH) NEB (00:15)
[2017-02-12] MEDS ORDERED: RESP: ALBUTEROL 2.5 MG/IPRATROPIUM 0.5 MG NEB (PRN) NEB (00:15)
[2017-02-12] MEDS: ATORVASTATIN 20 MG TAB PO SCH ×3 (00:45→20:37)
[2017-02-12] MEDS: LEVOFLOXACIN 750 MG PREMIX INJ 150 ML IV SCH (00:45)
[2017-02-12] MEDS ORDERED: oxyCODONE/ACETAMINOPHEN 10 MG/325 MG TAB PO ONE (01:00)
[2017-02-12] MEDS: RESP: ALBUTEROL 2.5 MG/IPRATROPIUM 0.5 MG NEB (SCH) NEB ×4 (03:34→20:56)
[2017-02-12] MEDS: oxyCODONE/ACETAMINOPHEN 10 MG/325 MG TAB PO PRN ×2 (06:32→20:37)
[2017-02-12] MEDS: SODIUM CHLOR 0.45% 1000 ML INJ 1,000 ML IV SCH ×2 (06:34→22:32)
[2017-02-12] MEDS: INSULIN ASPART SUPPLEMENTAL SCALE SQ SCH ×4 (07:00→20:38)
[2017-02-12] MEDS: INSULIN DETEMIR 100 UNITS/ML VIAL SQ SCH (09:39)
[2017-02-12] MEDS: ASPIRIN 81 MG CHEW TAB CHEW SCH (09:40)
[2017-02-12] MEDS: MAGNESIUM OXIDE 400 MG TAB PO SCH (09:40)
[2017-02-12] MEDS: DOCUSATE SODIUM 50 MG/SENNA 8.6 MG TAB PO SCH ×3 (09:40→20:43)
[2017-02-12] MEDS: METOPROLOL TARTRATE 25 MG TAB PO SCH ×2 (09:40→20:36)
[2017-02-12] MEDS: PREGABALIN 75 MG CAP PO SCH ×2 (09:41→20:36)
[2017-02-12] MEDS: RIVAROXABAN 20 MG TAB PO SCH (09:41)
[2017-02-12] MEDS: metFORMIN HCL 500 MG TAB PO SCH ×2 (09:41→18:00)
[2017-02-12] MEDS: PANTOPRAZOLE SOD 40 MG DELAYED RELEASE TAB PO SCH (09:41)
[2017-02-12] MEDS: SODIUM CHLORIDE 0.9% FLUSH 10 ML FLUSH IV FLUSH SCH ×2 (09:41→20:36)
[2017-02-12] MEDS: LOSARTAN 50 MG TAB PO SCH (09:41)
[2017-02-12] MEDS: LIDOCAINE HCL 5% PATCH T-DERMAL SCH (09:42)
--- NOTE | 2017-02-12 11:14 | HHI.PR ---
Subjective Remarks Follow up chest pain, dyspnea. Patient still having significant pain in the left ribcage, worse with deep breaths, coughing, movement. Objective Vitals Vital Signs Date Time Temp Pulse Resp B/P Pulse Ox O2 Delivery O2 Flow Rate FiO2 02/12/17 10:59 18 02/12/17 08:17 189/112 02/12/17 08:16 96.4 91 19 202/133 92 02/12/17 08:00 22 02/12/17 04:00 95.5 87 20 140/64 96 02/11/17 21:24 92 Nasal Cannula 2.00 02/11/17 20:00 97.6 84 20 107/75 96 02/11/17 16:11 18 02/11/17 16:00 97.5 79 17 125/80 96 02/11/17 12:00 96.3 85 18 118/77 95 I/O 02/11/17 02/11/17 02/11/17 02/12/17 02/12/17 02/12/17 07:00 15:00 23:00 07:00 15:00 23:00 Intake Total 1000 ml 240 ml Output Total 1000 ml 450 ml Balance 0 ml -210 ml Intake Oral 1000 ml 240 ml Output Urine Total 1000 ml 450 ml # Bowel Movements 0 Result Diagram: 02/11/17 0605 02/11/17 [address] Angiography 02/11/17 0000 Signed Impressions: Service Date/Time: Saturday, February 11, 2017 23:13 - CONCLUSION: Resolution of the previously seen left upper lobe air space process with interval development of bilateral lower lobe, right middle lobe and lingular infiltrates most likely pneumonia. Beatriz So MD Ribs X-Ray 02/10/17 0000 Signed Impressions: Service Date/Time: Friday, February 10, 2017 12:21 - CONCLUSION: 1. No perceptible rib fracture. 2. Left base atelectasis. No hemothorax or pneumothorax. Guerrero Cummings MD Chest X-Ray 02/10/17 0000 Signed Impressions: Service Date/Time: Friday, February 10, 2017 14:41 - CONCLUSION: Developing atelectasis of the right base and modest worsening of atelectasis of the left base. Guerrero Cummings MD Objective Remarks General: No acute distress. Appears uncomfortable. Heart: Regular rate and rhythm. No murmur. Lungs: Clear to auscultation bilaterally. No wheezes, rales, or rhonchi. Breathing is nonlabored. There is tenderness over the left lateral chest wall at the lower rib cage. Abdomen: Soft, nontender, nondistended. Extremities: No lower extremity edema. Psych: Alert and oriented. Procedures None Urinary Catheter: No Vascular Central Line Catheter: No A/P Problem List: (1) Contusion of rib on left side ICD Code: S20.212A Status: Acute (2) Intractable pain ICD Code: R52 Status: Acute (3) Hypoxia ICD Code: R09.02 Status: Acute (4) Hyperlipidemia ICD Code: E78.5 Status: Chronic (5) HTN (hypertension) ICD Code: I10 Status: Chronic (6) Diabetes mellitus ICD Code: E11.9 Status: Chronic (7) Hyperkalemia ICD Code: E87.5 Status: Resolved (8) Pneumonia ICD Code: J18.9 Status: Acute Assessment and Plan 1. Intractable chest wall pain: Status post mechanical fall. Patient has rib cage pain and tenderness. Continue pain control. 2. Hypoxia: Secondary to chest wall pain, pneumonia. Continue supplemental oxygen. Patient is on Xarelto for history of pulmonary embolism. 3. Hyperkalemia: Resolved. 4. Hypertension: Blood pressure is controlled. Continue home medications. 5. Hyperlipidemia: Continue home medications. 6. GERD: Continue home medications. 7. Diabetes mellitus: Patient was hyperglycemic on admission. Continue metformin. Monitor Accu-Cheks and cover with sliding scale insulin. Diabetic diet. 8. Pneumonia: Continue Levaquin, oxygen. 9. DVT prophylaxis: Xarelto. Problem Qualifiers (1) Contusion of rib on left side: Qualified Code: S20.212A - Contusion of rib on left side, initial encounter (2) Diabetes mellitus: Adolfo Vegas MD Feb 12, 2017 11:14
[2017-02-12] MEDS ORDERED: GLUCAGON 1 MG/ML VIAL OTHER PRN (11:15)
[2017-02-12] MEDS ORDERED: DEXTROSE 50% IN WATER 50 ML VIAL(D50) IV PRN (11:15)
[2017-02-12] MEDS: HYDROmorphone HCL PF 1 MG/ML VIAL IV PUSH PRN ×2 (11:52→22:32)
[2017-02-12] MEDS: OLANZapine 5 MG TAB PO SCH (20:38)
[2017-02-12] MEDS: REMOVE OLD LIDOCAINE PATCH T-DERMAL SCH (20:39)
[2017-02-13] VITALS (9 sets, daily range): BP systolic 113–148; BP diastolic 70–91; PULSE 85–121; RESP 18–20; TEMP 96.1–97.3; O2SAT 91–96
[2017-02-13] MEDS: LEVOFLOXACIN 750 MG PREMIX INJ 150 ML IV SCH (00:27)
[2017-02-13] MEDS: HYDROmorphone HCL PF 1 MG/ML VIAL IV PUSH PRN ×5 (02:04→21:26)
[2017-02-13] MEDS: RESP: ALBUTEROL 2.5 MG/IPRATROPIUM 0.5 MG NEB (SCH) NEB ×4 (03:41→21:01)
[2017-02-13] MEDS: oxyCODONE/ACETAMINOPHEN 10 MG/325 MG TAB PO PRN ×3 (03:59→18:56)
[2017-02-13 06:44] LABS: AUTOMATED NEUTROPHIL # 3.5 TH/MM3 (1.8-7.7); BASOPHIL % 0.5 % (0.0-2.0); EOSINOPHIL # 0.3 TH/MM3 (0-0.4); EOSINOPHIL % 4.4 % (0.0-4.0); HEMATOCRIT 32.6 % (39.0-51.0); HEMO FLAGS DIFF FINAL; LYMPH % 24.4 % (9.0-44.0); LYMPHOCYTE # 1.5 TH/MM3 (1.0-4.8); MEAN CELL VOLUME 89.6 FL (80.0-100.0); MEAN CORPUSCULAR HEMOGLOBIN 29.8 PG (27.0-34.0); MEAN CORPUSCULAR HGB CONC 33.3 % (32.0-36.0); MONO % 11.6 % (0.0-8.0); NEUT % 59.1 % (16.0-70.0); PLATELET COUNT 123 TH/MM3 (150-450); RED BLOOD COUNT 3.64 MIL/MM3 (4.50-5.90); RED CELL DISTRIBUTION WIDTH 15.6 % (11.6-17.2)
--- NOTE | 2017-02-13 06:50 | RADHPO ---
EXAM DATE/TIME: 02/13/2017 06:27 [facility] COMPARISON: CHEST SINGLE AP, February 10, 2017, 14:41. INDICATIONS : Chest pain and short of breath. MEDICAL HISTORY : Chronic obstructive pulmonary disease. Hypercholesterolemia. Hypertension. SURGICAL HISTORY : Left clavicle repair. ENCOUNTER: Subsequent ACUITY: 3 days PAIN SCORE: 8/10 LOCATION: Bilateral chest FINDINGS: Moderate bibasilar atelectasis and/or infiltrate is seen and worse since the prior exam. The rest of the examination has not significantly changed. CONCLUSION: Worsening bibasilar atelectasis and/or infiltrate. Beatriz So MD on February 13, 2017 at 6:47 Board Certified Radiologist. This report was verified electronically.
[2017-02-13 07:00] LABS: POTASSIUM 4.1 MEQ/L (3.5-5.1)
[2017-02-13] MEDS: INSULIN ASPART SUPPLEMENTAL SCALE SQ SCH ×4 (07:00→21:00)
[2017-02-13 07:08] LABS: BICARBONATE 25.8 MEQ/L (21.0-32.0)
[2017-02-13] MEDS: INSULIN DETEMIR 100 UNITS/ML VIAL SQ SCH (07:50)
[2017-02-13] MEDS: LIDOCAINE HCL 5% PATCH T-DERMAL SCH (07:54)
[2017-02-13] MEDS: ASPIRIN 81 MG CHEW TAB CHEW SCH (07:55)
[2017-02-13] MEDS: PANTOPRAZOLE SOD 40 MG DELAYED RELEASE TAB PO SCH (07:56)
[2017-02-13] MEDS: DOCUSATE SODIUM 50 MG/SENNA 8.6 MG TAB PO SCH ×2 (07:56→21:26)
[2017-02-13] MEDS: LOSARTAN 50 MG TAB PO SCH (07:56)
[2017-02-13] MEDS: metFORMIN HCL 500 MG TAB PO SCH ×2 (07:56→16:32)
[2017-02-13] MEDS: METOPROLOL TARTRATE 25 MG TAB PO SCH ×2 (07:57→21:25)
[2017-02-13] MEDS: MAGNESIUM OXIDE 400 MG TAB PO SCH (07:57)
[2017-02-13] MEDS: PREGABALIN 75 MG CAP PO SCH ×2 (07:57→21:26)
[2017-02-13] MEDS: RIVAROXABAN 20 MG TAB PO SCH (07:57)
[2017-02-13] MEDS: SODIUM CHLORIDE 0.9% FLUSH 10 ML FLUSH IV FLUSH SCH ×2 (07:58→21:26)
[2017-02-13] MEDS ORDERED: OXYGENTANK NAS.CANULA (08:53)
[2017-02-13] MEDS: SODIUM CHLOR 0.45% 1000 ML INJ 1,000 ML IV SCH ×2 (10:56→22:50)
--- NOTE | 2017-02-13 15:47 | HHI.PR ---
Subjective Remarks Follow-up pneumonia, rib cage pain. The patient continues to report significant pain in the left lower rib cage. Pain is worse with deep breaths. He is able to move better today. Objective Vitals Vital Signs Date Time Temp Pulse Resp B/P Pulse Ox O2 Delivery O2 Flow Rate FiO2 02/13/17 12:00 96.3 121 19 145/75 94 02/13/17 10:10 92 Nasal Cannula 3.00 02/13/17 08:14 96.1 106 19 141/70 94 02/13/17 08:00 85 02/13/17 04:00 96.2 97 18 133/80 96 02/13/17 00:00 97.3 90 18 113/74 96 02/12/17 20:57 92 Nasal Cannula 3.00 02/12/17 20:00 93 02/12/17 20:00 98.7 98 18 125/82 96 02/12/17 17:32 2.00 02/12/17 17:22 97.7 97 19 128/85 92 I/O 02/12/17 02/12/17 02/12/17 02/13/17 02/13/17 02/13/17 06:59 14:59 22:59 06:59 14:59 22:59 Intake Total 240 ml 252 ml 1392 ml Output Total 450 ml Balance -210 ml 252 ml 1392 ml Intake Oral 240 ml 720 ml IV Total 252 ml 672 ml Output Urine Total 450 ml # Voids 4 4 # Bowel Movements 0 0 Result Diagram: 02/13/17 0530 02/13/17 0530 Imaging Last Impressions Chest X-Ray 02/13/17 0600 Signed Impressions: Service Date/Time: Monday, February 13, 2017 06:27 - CONCLUSION: Worsening bibasilar atelectasis and/or infiltrate. Beatriz So MD CT Angiography 02/11/17 0000 Signed Impressions: Service Date/Time: Saturday, February 11, 2017 23:13 - CONCLUSION: Resolution of the previously seen left upper lobe air space process with interval development of bilateral lower lobe, right middle lobe and lingular infiltrates most likely pneumonia. Beatriz So MD Ribs X-Ray 02/10/17 0000 Signed Impressions: Service Date/Time: Friday, February 10, 2017 12:21 - CONCLUSION: 1. No perceptible rib fracture. 2. Left base atelectasis. No hemothorax or pneumothorax. Guerrero Cummings MD Objective Remarks General: No acute distress. Appears more comfortable today. Heart: Regular rate and rhythm. No murmur. Lungs: Right-sided crackles are noted. Breathing is nonlabored. There is tenderness over the left lateral chest wall at the lower rib cage. Abdomen: Soft, nontender, nondistended. Extremities: No lower extremity edema. Psych: Alert and oriented. Procedures None Urinary Catheter: No Vascular Central Line Catheter: No A/P Problem List: (1) Contusion of rib on left side ICD Code: S20.212A Status: Acute (2) Intractable pain ICD Code: R52 Status: Acute (3) Hypoxia ICD Code: R09.02 Status: Acute (4) Hyperlipidemia ICD Code: E78.5 Status: Chronic (5) HTN (hypertension) ICD Code: I10 Status: Chronic (6) Diabetes mellitus ICD Code: E11.9 Status: Chronic (7) Hyperkalemia ICD Code: E87.5 Status: Resolved (8) Pneumonia ICD Code: J18.9 Status: Acute Assessment and Plan 1. Intractable chest wall pain: Status post mechanical fall. Patient has rib cage pain and tenderness. Continue pain control. Patient appears to be improving clinically, but continues to complain of significant pain in the rib cage. 2. Hypoxia: Secondary to chest wall pain, pneumonia. Continue supplemental oxygen, bronchodilators. Patient is on Xarelto for history of pulmonary embolism. 3. Hyperkalemia: Resolved. 4. Hypertension: Blood pressure is controlled. Continue home medications. 5. Hyperlipidemia: Continue home medications. 6. GERD: Continue home medications. 7. Diabetes mellitus: Patient was hyperglycemic on admission. Continue metformin. Monitor Accu-Cheks and cover with sliding scale insulin. Diabetic diet. 8. Pneumonia: Continue Levaquin, oxygen. 9. DVT prophylaxis: Xarelto. Discharge Planning Possible discharge home tomorrow. Problem Qualifiers (1) Contusion of rib on left side: Qualified Code: S20.212A - Contusion of rib on left side, initial encounter (2) Diabetes mellitus: Adolfo Vegas MD Feb 13, 2017 15:47
[2017-02-13] MEDS: REMOVE OLD LIDOCAINE PATCH T-DERMAL SCH (21:00)
[2017-02-13] MEDS: ATORVASTATIN 20 MG TAB PO SCH (21:25)
[2017-02-13] MEDS: OLANZapine 5 MG TAB PO SCH (21:26)
[2017-02-14] VITALS: BP 145/86; PULSE 97; RESP 18; TEMP 95.9; O2SAT 95
[2017-02-14] MEDS: LEVOFLOXACIN 750 MG PREMIX INJ 150 ML IV SCH (00:25)
[2017-02-14] MEDS: HYDROmorphone HCL PF 1 MG/ML VIAL IV PUSH PRN (01:49)
[2017-02-14] MEDS: RESP: ALBUTEROL 2.5 MG/IPRATROPIUM 0.5 MG NEB (SCH) NEB ×2 (03:57→09:16)
[2017-02-14 04:00] VITALS: BP 138/82; PULSE 98; RESP 18; TEMP 97.9; O2SAT 94
[2017-02-14] MEDS: INSULIN ASPART SUPPLEMENTAL SCALE SQ SCH ×2 (07:00→11:00)
[2017-02-14 08:00] VITALS: BP 139/90; PULSE 106; PULSE 95; RESP 22; TEMP 97.9; O2SAT 96
[2017-02-14] MEDS: PANTOPRAZOLE SOD 40 MG DELAYED RELEASE TAB PO SCH (08:04)
[2017-02-14] MEDS: oxyCODONE/ACETAMINOPHEN 10 MG/325 MG TAB PO PRN (08:04)
[2017-02-14] MEDS: RIVAROXABAN 20 MG TAB PO SCH (08:05)
[2017-02-14] MEDS: PREGABALIN 75 MG CAP PO SCH (08:05)
[2017-02-14] MEDS: metFORMIN HCL 500 MG TAB PO SCH (08:05)
[2017-02-14] MEDS: LOSARTAN 50 MG TAB PO SCH (08:05)
[2017-02-14] MEDS: ASPIRIN 81 MG CHEW TAB CHEW SCH (08:05)
[2017-02-14] MEDS: METOPROLOL TARTRATE 25 MG TAB PO SCH (08:05)
[2017-02-14] MEDS: MAGNESIUM OXIDE 400 MG TAB PO SCH (08:05)
[2017-02-14] MEDS: DOCUSATE SODIUM 50 MG/SENNA 8.6 MG TAB PO SCH (08:06)
[2017-02-14] MEDS: INSULIN DETEMIR 100 UNITS/ML VIAL SQ SCH (08:08)
[2017-02-14 08:50] VITALS: O2SAT 92
[2017-02-14] MEDS: SODIUM CHLORIDE 0.9% FLUSH 10 ML FLUSH IV FLUSH SCH (09:09)
[2017-02-14] MEDS: LIDOCAINE HCL 5% PATCH T-DERMAL SCH (09:10)
[2017-02-14] MEDS ORDERED: LEVO750T3 PO (10:50)
[2017-02-14] MEDS ORDERED: PERC7.5T13 PO (10:50)
--- NOTE | 2017-02-14 10:52 | HHI.DCPOC ---
Discharge Care Plan Diagnosis: (1) Hypoxia (2) Pneumonia (3) Contusion of rib on left side (4) Intractable pain (5) HTN (hypertension) (6) Hyperlipidemia (7) Diabetes mellitus (8) Hyperkalemia Goals to Promote Your Health * To prevent worsening of your condition and complications * To maintain your health at the optimal level Directions to Meet Your Goals Take your medications as prescribed Follow your dietary instruction Follow activity as directed Keep your appointments as scheduled Take your immunizations and boosters as scheduled If your symptoms worsen call your PCP, if no PCP go to Urgent Care Center or Emergency Room Smoking is Dangerous to Your Health. Avoid second hand smoke Call the 24-hour hour crisis hotline for domestic abuse at Adolfo Vegas MD Feb 14, 2017 10:52
--- NOTE | 2017-02-14 10:55 | HHI.DS ---
Discharge Summary Admission Date Feb 10, 2017 at 15:00 Discharge Date: Feb 14, 2017 Admitting Diagnosis hypoxia (1) Contusion of rib on left side ICD Code: S20.212A (2) Intractable pain ICD Code: R52 (3) Hypoxia ICD Code: R09.02 (4) Hyperlipidemia ICD Code: E78.5 (5) HTN (hypertension) ICD Code: I10 (6) Diabetes mellitus ICD Code: E11.9 (7) Hyperkalemia ICD Code: E87.5 (8) Pneumonia ICD Code: J18.9 Procedures None Brief History - From Admission 48-year-old male with a history of diabetes, COPD, hypertension, pulmonary embolism on antibiotic regulation, who presents having . Stopped mechanical fall this morning around 4 AM. He tripped over shoes, partially breaking his fall, however hitting his chest on the coffee table. No loss of consciousness. Denies any lightheadedness or dizziness. He presents intense left-sided pleuritic chest pain secondary to injury, however tried to go back to sleep, however woke up with extreme sharp, left-sided pleuritic chest pain, unable to take deep breath due to pain. Upon presenting to the ED, he was given Dilaudid and Toradol, with minimal improvement in pleuritic pain, however was found to have oxygen saturation of 83% on room air. Baseline is 91% on room air. Patient currently reports that he is feeling anxious, afraid of deep breathing because of left-sided pleuritic chest pain, and is also diaphoretic. Patient denies any lightheadedness or dizziness. Denies any nausea or vomiting. Has no other complaints. He reports prior to this injury, he felt fine, with no chest pain, shortness of breath, nausea, vomiting. History is somewhat limited secondary to patient's shallow breathing. CBC/BMP: 02/13/17 0530 02/13/17 0530 Significant Findings Laboratory Tests Test 02/11/17 02/13/17 15:16 05:30 Urine Glucose (UA) 100 mg/dL (NEG) Red Blood Count 3.64 MIL/MM3 (4.50-5.90) Hemoglobin 10.9 GM/DL (13.0-17.0) Hematocrit 32.6 % (39.0-51.0) Platelet Count 123 TH/MM3 (150-450) Monocytes (%) (Auto) 11.6 % (0.0-8.0) Eosinophils (%) (Auto) 4.4 % (0.0-4.0) Blood Urea Nitrogen 21 MG/DL (7-18) Estimat Glomerular Filtration 82 ML/MIN (>89) Rate Random Glucose 136 MG/DL (74-106) Calcium Level 8.4 MG/DL (8.5-10.1) Imaging Last Impressions Chest X-Ray 02/13/17 0600 Signed Impressions: Service Date/Time: Monday, February 13, 2017 06:27 - CONCLUSION: Worsening bibasilar atelectasis and/or infiltrate. Beatriz So MD CT Angiography 02/11/17 0000 Signed Impressions: Service Date/Time: Saturday, February 11, 2017 23:13 - CONCLUSION: Resolution of the previously seen left upper lobe air space process with interval development of bilateral lower lobe, right middle lobe and lingular infiltrates most likely pneumonia. Beatriz So MD Ribs X-Ray 02/10/17 0000 Signed Impressions: Service Date/Time: Friday, February 10, 2017 12:21 - CONCLUSION: 1. No perceptible rib fracture. 2. Left base atelectasis. No hemothorax or pneumothorax. Guerrero Cummings MD PE at Discharge General: No acute distress. Heart: Regular rate and rhythm. No murmur. Lungs: Right-sided crackles are noted, improving. Breathing is nonlabored. There is less tenderness over the left lateral chest wall at the lower rib cage. Abdomen: Soft, nontender, nondistended. Extremities: No lower extremity edema. Psych: Alert and oriented. Pt update on day of discharge The patient appears more comfortable today. He is moving around better. Still having pain in the left rib cage, but less than yesterday. Breathing is improving as well. Hospital Course Patient was admitted for management of hypoxia, dyspnea secondary to left rib contusion. He was continued on pain medication. He was advised to use incentive spirometer, but was not compliant. He developed pneumonia and was started on antibiotics. His symptoms started to improve and on the day of discharge she was felt to be stable for discharge home. Respiratory therapy home oxygen walk test confirmed the need for home oxygen, which was arranged by case management through the [facility]. Pt Condition on Discharge: Stable Discharge Disposition: Discharge Home Discharge Time: > 30 minutes Discharge Instructions DIET: Follow Instructions for: Diabetic Diet Activities you can perform: Regular-No Restrictions Follow up Referrals: PCP Follow-up - 2-3 Days New Medications: Levofloxacin (Levofloxacin) 750 Mg Tablet 750 MG PO DAILY Infection #5 Ref 0 TAB Oxycodone-Acetaminophen (Percocet) 7.5-325 mg Tab 1 TAB PO Q6H PRN PAIN #15 Ref 0 TAB Oxygen tank (Oxygen tank) 1 Ea Tank 2 LITER CRISTIAN.CANULA CONTINUOUS Oxygen Concentrator Portable Gaseous 2 L/min via Nasal Cannula Continuous For 99 months HYPOXEMIA PREVENTION #1 CYLINDER Continued Medications: Aspirin (Aspirin) 81 Mg Chew 81 MG CHEW DAILY Ref 0 TAB Atorvastatin (Lipitor) 20 Mg Tab 20 MG PO HS Cholesterol Management #30 Ref 0 TAB Hydrocodone-Acetaminophen (Hydrocodone-Acetaminophen) 5-325 mg Tab 1 TAB PO Q6H PRN PAIN #30 Ref 0 TAB Insulin Glargine Inj (Lantus Inj) 1,000 Unit/10 Ml Vial 15 UNITS SQ DAILY Blood Sugar Management Ref 0 VIAL Losartan (Losartan) 50 Mg Tab 50 MG PO DAILY Blood Pressure Management #30 Ref 0 TAB Magnesium Oxide (Magnesium Oxide) 400 Mg Tab 400 MG PO DAILY Nutritional Supplement Ref 0 TAB Metformin (Metformin) 1,000 Mg Tab 1000 MG PO BIDPC With meals Blood Sugar Management #60 Ref 0 TAB Metoprolol Tartrate (Metoprolol Tartrate) 25 Mg Tab 25 MG PO BID #60 Ref 0 TAB Olanzapine (Olanzapine) 10 Mg Tab 10 MG PO HS #30 Ref 0 TAB Pantoprazole (Protonix) 40 Mg Tab 40 MG PO DAILY Reflux #30 Ref 0 TAB Pregabalin (Lyrica) 75 Mg Cap 75 MG PO BID #60 Ref 0 CAP Rivaroxaban (Xarelto) 20 Mg Tab 20 MG PO DAILY PE Days 30 TAB Adolfo Vegas MD Feb 14, 2017 10:55
[2017-02-14] MEDS: SODIUM CHLOR 0.45% 1000 ML INJ 1,000 ML IV SCH (11:10)
--- NOTE | 2017-02-17 08:33 | PQ ---
Physician Query Response Document PATIENT: TREMAYNE QUESADA : 1960 ADMIT DATE: 02/10/2017 3:00 PM DISCH DATE: 02/14/2017 1:25 PM RESPONDING PROVIDER #: [email or web address] QUERY TEXT: Respiratory Failure Acuity and Type Respiratory Failure is documented in the Medical Record. Please specify the type and acuity (includes suspected or probable) Such as: -- Acute respiratory failure - With hypoxia - With hypercapnia -- Chronic respiratory failure - With hypoxia - With hypercapnia -- Acute on chronic respiratory failure - With hypoxia - With hypercapnia -- Other, please specify If you have any additional questions/comments and/or concerns, please do not hesitate to reach out to the CDI/Coding Hotline, Ext. [phone]. The patient's Clinical Indicators include: H //Hypoxic respiratory failure //Hypercapnic respiratory failure //Acute respiratory acidosis. -Likely secondary to left rib contusion, with splinting. Also likely exacerbated by Dilaudid IV in th e ER. ED record documents (between Radiology findings and Diagnosis): 91% sat on room air, patient states t his is his baseline secondary to COPD. Prior to discharge patient was found to be hypoxic with sats running between 83 and 88%, diaphoretic as well. Discharge Summary documents: Hospital Course : Patient was admitted for management of hypoxia, dyspnea secondary to left rib contusion. Query created by: Maritza Moncada on 02/15/2017 1:17 PM RESPONSE TEXT: Clarification of diagnosis: Based on admission H Electronically signed by: Adolfo Vegas MD 02/17/2017 8:29 AM
== END 2017-02-14 13:25 | disposition home or self-care (01) | DRG 604 ==
LOC: PHED 12:04 → PHEDA 13:54 → OBSVTOIN 15:00 → PH3A 15:13
PROVIDERS: ADMIT Family Medicine; ATTEND Family Medicine
DX: S20.212A Contusion of left front wall of thorax, initial encounter (principal); J96.01 Acute respiratory failure with hypoxia; J96.02 Acute respiratory failure with hypercapnia; J18.9 Pneumonia, unspecified organism; E87.2 Acidosis; W01.190A Fall on same level from slipping, tripping and stumbling with subsequent striking against furniture, initial encounter; Y92.009 Unspecified place in unspecified non-institutional (private) residence as the place of occurrence of the external cause; E87.5 Hyperkalemia; E11.40 Type 2 diabetes mellitus with diabetic neuropathy, unspecified; E11.65 Type 2 diabetes mellitus with hyperglycemia; Z79.84 Long term (current) use of oral hypoglycemic drugs; Z79.4 Long term (current) use of insulin; J44.9 Chronic obstructive pulmonary disease, unspecified; Z87.01 Personal history of pneumonia (recurrent); Z86.711 Personal history of pulmonary embolism; Z79.02 Long term (current) use of antithrombotics/antiplatelets; Z79.82 Long term (current) use of aspirin; F17.210 Nicotine dependence, cigarettes, uncomplicated; I10 Essential (primary) hypertension; E78.5 Hyperlipidemia, unspecified; K21.9 Gastro-esophageal reflux disease without esophagitis; Z86.73 Personal history of transient ischemic attack (TIA), and cerebral infarction without residual deficits; F40.240 Claustrophobia
CPT/HCPCS: 36600; 71010; 71101; 71275; 80048; 80053; 80307; 81001; 82805; 82948; 83735; 84100; 85025; 85610; 93005; 94150; 94620; 94640; 94664; 94667; 94668; 96374; 96375; J1170; J1815; J1885; J1956; J2405; J3475; Q9967

== ENCOUNTER 2017-04-04 17:00 | Inpatient (IN) | payer OTHER ==
[2017-04-04] VITALS (8 sets, daily range): BP systolic 107–137; BP diastolic 67–80; PULSE 90–101; RESP 11–18; TEMP 97.9–98; O2SAT 95–97
[~2017-04-04] VITALS: Ht 177.8 cm; Wt 87.8 kg
[~2017-04-04 17:00] MED LIST changes: +ASPI81CH CHEW; -ASPI81TA11 PEG; -ATOR20TA15 PEG; +HYDR-3516 PO; -IPRASOL NEB; +LANTUS2P SQ; -LEVEMIR SQ; +LEVO750T3 PO; +LIPI20TA PO; -LOSA25TA PEG; +LOSA50TA PO; -LYRI75CA PEG; +LYRI75CA PO; -MAGN400T2 PEG; +MAGN400T2 PO; +METF1000 PO; -METO25TA3 PEG; +METO25TA3 PO; -NOVOLOGSS SQ; -OLAN10TA PEG; +OLAN10TA PO; +OXYGENTANK NAS.CANULA; -PANT40TA3 PEG; +PERC7.5T13 PO; +PROT40TA PO; -TAMS5CAP PEG
[2017-04-04] MEDS ORDERED: SODIUM CHLORIDE 0.9% FLUSH 10 ML FLUSH IVF PRN (18:30)
--- NOTE | 2017-04-04 19:08 | PD ---
HPI Chief Complaint: Syncope/Near-Syncope Time Seen by Provider: 17:50 Travel History International Travel<30 days: No Contact w/Intl Traveler<30days: No Traveled to known affect area: No History of Present Illness HPI 56-year-old male came to the emergency room with history of syncopal episode over the past couple weeks. Patient has history of diabetes. He went to the [place] today to get his physical therapy and mentioned about the syncopal episode to his primary care and they decided to send him to the emergency room. No history of chest pain. Currently he is feeling fine he said. He has a rash on the left side of his forehead that he thinks is shingles. Vital signs were otherwise stable. A bedside glucose was done which was 208. PFSH Past Medical History Narrative Medical List of his past medical, surgical, social and family history was reviewed from the nursing note. Hx Anticoagulant Therapy: Yes Anxiety: Yes Heart Rhythm Problems: No Cancer: No Cardiovascular Problems: Yes High Cholesterol: Yes Chemotherapy: No Chest Pain: Yes Congestive Heart Failure: No COPD: Yes Cerebrovascular Accident: Yes (2010) Diabetes: Yes Patient Takes Glucophage: Yes Diminished Hearing: Yes ([facility], hearing aids at home) Endocrine: Yes GERD: Yes Genitourinary: No Hypertension: Yes Immune Disorder: No Implanted Vascular Access Dvce: No Musculoskeletal: No Neurologic: Yes Psychiatric: No Reproductive: No Respiratory: Yes (B PULMONARY EMBOLISM) Pneumonia: Yes Radiation Therapy: No Shingles: Yes Thyroid Disease: No Past Surgical History Abdominal Surgery: No Cardiac Surgery: No Ear Surgery: No Endocrine Surgery: No Eye Surgery: Yes Genitourinary Surgery: No Gynecologic Surgery: No Neurologic Surgery: No Oral Surgery: Yes Thoracic Surgery: No Other Surgery: Yes (MULTIPLE ORTHOPEDIC SX'S) Social History Alcohol Use: No (QUIT 05/2016) Tobacco Use: No Substance Use: No Allergies-Medications (Allergen,Severity, Reaction): Coded Allergies: Morphine (Verified Allergy, Mild, 02/10/17) Comments List of his allergies reviewed from the nursing note. Reported Meds & Prescriptions Reported Meds & Active Scripts Active Oxygen tank (Oxygen) 1 Ea Tank 2 Liter CRISTIAN.CANULA CONTINUOUS Oxygen Concentrator Portable Gaseous 2 L/min via Nasal Cannula Continuous For 99 months Xarelto (Rivaroxaban) 20 Mg Tab 20 Mg PO DAILY 30 Days Reported Trazodone (Trazodone HCl) 50 Mg Tab 50 Mg PO HS Ferrous Sulfate 325 Mg (65 Mg Iron) Tablet 325 Mg PO DAILY Jardiance (Empagliflozin) 10 Mg Tab 10 Mg PO AC BREAKFAST Glucose (Dextrose) 15 Gm/60 Ml Liquid 15 Gm PO PRN B-12 (Cyanocobalamin) 2,000 Mcg Tab 2,000 Mcg PO DAILY Duoneb (Ipratropium-Albuterol Neb) 0.5-2.5 Mg/3 Ml Neb 1 Nebule INH Q8HR NEB PRN Lyrica (Pregabalin) 75 Mg Cap 75 Mg PO BID Protonix (Pantoprazole Sodium) 40 Mg Tab 40 Mg PO DAILY Olanzapine 10 Mg Tab 10 Mg PO HS Metoprolol Tartrate 25 Mg Tab 25 Mg PO BID Magnesium Oxide 400 Mg Tab 400 Mg PO BID Losartan (Losartan Potassium) 50 Mg Tab 50 Mg PO DAILY Lipitor (Atorvastatin Calcium) 20 Mg Tab 20 Mg PO HS Aspirin 81 Mg Chew 81 Mg CHEW DAILY Lantus Inj (Insulin Glargine) 1,000 Unit/10 Ml Vial 12 Units SQ DAILY Metformin (Metformin HCl) 1,000 Mg Tab 1,000 Mg PO BIDPC With meals Narrative Medication List of his home medications reviewed from the nursing note. Review of Systems Except as stated in HPI: all other systems reviewed are Neg Physical Exam Narrative GENERAL: Awake, alert, no obvious distress SKIN: Focused skin assessment warm/dry. Erythematous macular papular rash on the left side of his forehead that looks like shingles. No vesicles HEAD: Atraumatic. Normocephalic. EYES: Pupils equal and round. No scleral icterus. No injection or drainage. ENT: No nasal bleeding or discharge. Mucous membranes pink and moist. NECK: Trachea midline. No JVD. CARDIOVASCULAR: Regular rate and rhythm. No murmur appreciated. RESPIRATORY: No accessory muscle use. Clear to auscultation. Breath sounds equal bilaterally. GASTROINTESTINAL: Abdomen soft, non-tender, nondistended. Hepatic and splenic margins not palpable. MUSCULOSKELETAL: No obvious deformities. No clubbing. No cyanosis. No edema. NEUROLOGICAL: Awake and alert. No obvious cranial nerve deficits. Motor grossly within normal limits. Normal speech. PSYCHIATRIC: Appropriate mood and affect; insight and judgment normal. Data Data Last Documented VS Vital Signs Date Time Temp Pulse Resp B/P Pulse Ox O2 Delivery O2 Flow Rate FiO2 04/04/17 19:37 13 97 Room Air 04/04/17 19:31 98 131/79 04/04/17 17:26 98.0 Orders Basic Metabolic Panel (Bmp) (04/04/17 18:25) Complete Blood Count With Diff (04/04/17 18:25) Troponin I (04/04/17 18:25) Act Partial Throm Time (Ptt) (04/04/17 18:25) Urinalysis - C+S If Indicated (04/04/17 18:25) Chest, Single Ap (04/04/17 18:25) Ct Brain W/O Iv Contrast(Rout) (04/04/17 18:25) Ecg Monitoring (04/04/17 18:25) Iv Access Insert/Monitor (04/04/17 18:25) Oximetry (04/04/17 18:25) Sodium Chloride 0.9% Flush (Ns Flush) (04/04/17 18:30) Blood Glucose (04/04/17 18:25) Electrocardiogram (04/04/17 ) Sodium Chlor 0.9% 1000 Ml Inj (Ns 1000 M (04/04/17 20:15) Creatine Kinase (Cpk) (04/04/17 20:12) Oxycodone-Acetamin 7.5-325 Mg (Percocet (04/04/17 20:15) Admit Order (Ed Use Only) (04/04/17 20:35) Labs Laboratory Tests Test 04/04/17 04/04/17 17:23 19:40 Activated Partial 32.0 SEC Thromboplast Time Sodium Level 136 MEQ/L Potassium Level 5.3 MEQ/L Chloride Level 98 MEQ/L Carbon Dioxide Level 29.5 MEQ/L Anion Gap 9 MEQ/L Blood Urea Nitrogen 20 MG/DL Creatinine 1.79 MG/DL Estimat Glomerular Filtration 39 ML/MIN Rate Random Glucose 216 MG/DL Calcium Level 9.1 MG/DL Troponin I 0.04 NG/ML White Blood Count 7.8 TH/MM3 Red Blood Count 4.86 MIL/MM3 Hemoglobin 14.8 GM/DL Hematocrit 44.8 % Mean Corpuscular Volume 92.1 FL Mean Corpuscular Hemoglobin 30.5 PG Mean Corpuscular Hemoglobin 33.1 % Concent Red Cell Distribution Width 14.6 % Platelet Count 161 TH/MM3 Mean Platelet Volume 9.3 FL Neutrophils (%) (Auto) 76.1 % Lymphocytes (%) (Auto) 14.4 % Monocytes (%) (Auto) 6.5 % Eosinophils (%) (Auto) 2.4 % Basophils (%) (Auto) 0.6 % Neutrophils # (Auto) 5.9 TH/MM3 Lymphocytes # (Auto) 1.1 TH/MM3 Monocytes # (Auto) 0.5 TH/MM3 Eosinophils # (Auto) 0.2 TH/MM3 Basophils # (Auto) 0.0 TH/MM3 CBC Comment DIFF FINAL Differential Comment Total Creatine Kinase 50 U/L MDM Medical Decision Making Medical Screen Exam Complete: Yes Emergency Medical Condition: Yes Medical Record Reviewed: Yes Interpretation(s) Twelve-lead EKG was reviewed by me. Normal sinus rhythm, left axis deviation, questionable old inferior TX, nonspecific ST-T wave changes. Heart rate of 83 bpm. Differential Diagnosis Cardiac arrhythmia. Syncope, hypoglycemic episode Narrative Course 7:07 PM awaiting for the blood test and CAT scan of his head. Case has been signed over to the oncoming ER physician. Procedures EKG Prior to Arrival: Yes Scripts Alfuzosin HCl (Alfuzosin HCl ER)10 Mg Tab10 Mg PO DAILY #30 TAB Prov:Harper Li PA-C 04/06/17 Rollator Ultra-Light 1 Mis Mis #1 Ea .route As Directed Prov:Harper Li PA-C 04/06/17 Reggie Henry MD Apr 04, 2017 19:08
[2017-04-04 19:14] LABS: AUTOMATED NEUTROPHIL # 5.9 TH/MM3 (1.8-7.7); BASOPHIL % 0.6 % (0.0-2.0); EOSINOPHIL # 0.2 TH/MM3 (0-0.4); EOSINOPHIL % 2.4 % (0.0-4.0); HEMATOCRIT 44.8 % (39.0-51.0); HEMO FLAGS DIFF FINAL; LYMPH % 14.4 % (9.0-44.0); LYMPHOCYTE # 1.1 TH/MM3 (1.0-4.8); MEAN CELL VOLUME 92.1 FL (80.0-100.0); MEAN CORPUSCULAR HEMOGLOBIN 30.5 PG (27.0-34.0); MEAN CORPUSCULAR HGB CONC 33.1 % (32.0-36.0); MONO % 6.5 % (0.0-8.0); NEUT % 76.1 % (16.0-70.0); PLATELET COUNT 161 TH/MM3 (150-450); RED BLOOD COUNT 4.86 MIL/MM3 (4.50-5.90); RED CELL DISTRIBUTION WIDTH 14.6 % (11.6-17.2); WHITE BLOOD COUNT 7.8 TH/MM3 (4.0-11.0)
--- NOTE | 2017-04-04 19:40 | RADRPT ---
EXAM DATE/TIME: 04/04/2017 18:29 [facility] COMPARISON: CHEST SINGLE AP, February 13, 2017, 6:27. INDICATIONS : Palpitations MEDICAL HISTORY : Diabetes mellitus type II. Chronic obstructive pulmonary disease. Hypercholesterolemia. Hyperte nsion. SURGICAL HISTORY : Hardware left clavicle ENCOUNTER: Initial ACUITY: 3 days PAIN SCORE: 0/10 LOCATION: chest FINDINGS: A single view of the chest demonstrates the lungs to be symmetrically aerated without evidence of mas s, infiltrate or effusion. The cardiomediastinal contours are unremarkable. Internal fixation left clavicle. Deformity right lateral clavicle and left humeral head, stable. CONCLUSION: The lungs are clear. Db Ramsay MD on April 04, 2017 at 19:38 Board Certified Radiologist. This report was verified electronically.
[2017-04-04 19:44] LABS: BICARBONATE 29.5 MEQ/L (21.0-32.0)
[2017-04-04 19:46] LABS: POTASSIUM 5.3 MEQ/L (3.5-5.1)
--- NOTE | 2017-04-04 19:53 | RADRPT ---
EXAM DATE/TIME: 04/04/2017 18:48 [place] COMPARISON: CT BRAIN W/O CONTRAST, November 15, 2016, 23:57. INDICATIONS : Dizziness. RADIATION DOSE: 56.35 CTDIvol (mGy) ; Patient motion MEDICAL HISTORY : Cerebrovascular disease. Hypertension. Cardiovascular disease SURGICAL HISTORY : None. ENCOUNTER: Initial ACUITY: 1 day PAIN SCALE: 0/10 LOCATION: cranial TECHNIQUE: Multiple contiguous axial images were obtained of the head. Using automated exposure control and adj ustment of the mA and/or kV according to patient size, radiation dose was kept as low as reasonably a chievable to obtain optimal diagnostic quality images. DICOM format image data is available electro nically for review and comparison. FINDINGS: CEREBRUM: The ventricles are normal for age. No evidence of midline shift, mass lesion, hemorrhage or acute in farction. No extra-axial fluid collections are seen. POSTERIOR FOSSA: The cerebellum and brainstem are intact. The 4th ventricle is midline. The cerebellopontine angle i s unremarkable. EXTRACRANIAL: The visualized portion of the orbits is intact. Opacified right maxillary sinus. SKULL: The calvaria is intact. No evidence of skull fracture. CONCLUSION: 1. No acute findings in the brain. 2. Right maxillary sinus disease. Db Ramsay MD on April 04, 2017 at 19:50 Board Certified Radiologist. This report was verified electronically.
[2017-04-04] MEDS ORDERED: oxyCODONE/ACETAMINOPHEN 7.5 MG/325 MG TAB PO ONE (20:15)
[2017-04-04] MEDS ORDERED: SODIUM CHLOR 0.9% 1000 ML INJ 1,000 ML IV ONE (20:15)
--- NOTE | 2017-04-04 20:20 | PD ---
Data Data Last Documented VS Vital Signs Date Time Temp Pulse Resp B/P Pulse Ox O2 Delivery O2 Flow Rate FiO2 04/04/17 19:37 13 97 Room Air 04/04/17 19:31 98 131/79 04/04/17 17:26 98.0 Orders Basic Metabolic Panel (Bmp) (04/04/17 18:25) Complete Blood Count With Diff (04/04/17 18:25) Troponin I (04/04/17 18:25) Act Partial Throm Time (Ptt) (04/04/17 18:25) Urinalysis - C+S If Indicated (04/04/17 18:25) Chest, Single Ap (04/04/17 18:25) Ct Brain W/O Iv Contrast(Rout) (04/04/17 18:25) Ecg Monitoring (04/04/17 18:25) Iv Access Insert/Monitor (04/04/17 18:25) Oximetry (04/04/17 18:25) Sodium Chloride 0.9% Flush (Ns Flush) (04/04/17 18:30) Blood Glucose (04/04/17 18:25) Electrocardiogram (04/04/17 ) Sodium Chlor 0.9% 1000 Ml Inj (Ns 1000 M (04/04/17 20:15) Creatine Kinase (Cpk) (04/04/17 20:12) Oxycodone-Acetamin 7.5-325 Mg (Percocet (04/04/17 20:15) Admit Order (Ed Use Only) (04/04/17 20:35) Labs Laboratory Tests Test 04/04/17 17:23 White Blood Count 7.8 TH/MM3 Red Blood Count 4.86 MIL/MM3 Hemoglobin 14.8 GM/DL Hematocrit 44.8 % Mean Corpuscular Volume 92.1 FL Mean Corpuscular Hemoglobin 30.5 PG Mean Corpuscular Hemoglobin 33.1 % Concent Red Cell Distribution Width 14.6 % Platelet Count 161 TH/MM3 Mean Platelet Volume 9.3 FL Neutrophils (%) (Auto) 76.1 % Lymphocytes (%) (Auto) 14.4 % Monocytes (%) (Auto) 6.5 % Eosinophils (%) (Auto) 2.4 % Basophils (%) (Auto) 0.6 % Neutrophils # (Auto) 5.9 TH/MM3 Lymphocytes # (Auto) 1.1 TH/MM3 Monocytes # (Auto) 0.5 TH/MM3 Eosinophils # (Auto) 0.2 TH/MM3 Basophils # (Auto) 0.0 TH/MM3 CBC Comment DIFF FINAL Differential Comment Activated Partial 32.0 SEC Thromboplast Time Sodium Level 136 MEQ/L Potassium Level 5.3 MEQ/L Chloride Level 98 MEQ/L Carbon Dioxide Level 29.5 MEQ/L Anion Gap 9 MEQ/L Blood Urea Nitrogen 20 MG/DL Creatinine 1.79 MG/DL Estimat Glomerular Filtration 39 ML/MIN Rate Random Glucose 216 MG/DL Calcium Level 9.1 MG/DL Troponin I 0.04 NG/ML [facility] Medical Record Reviewed: Yes Supervised Visit with ROSALIE: No Narrative Course Please refer to the outgoing provider's note. CBC & BMP Diagram 04/04/17 17:23 The most recent prior creatinine on record is from approximately 2 months ago and at that time it was 0.9 with a BUN of 20. EKG shows a sinus rhythm with Q waves in the inferior leads nonspecific ST changes and a rate of 83, no hyperkalemic EKG change Last [address] 04/04/171824 Signed Impressions: Service Date/Time: April 18:48 - CONCLUSION: 1. No acute findings in the brain. 2. Right maxillary sinus disease. Db Ramsay MD Chest X-Ray 04/04/171824 Signed Impressions: Service Date/Time: April 18:29 - CONCLUSION: The lungs are clear. Db Ramsay MD Patient has doubled his creatinine the past 2 months. He describes a syncope type event 2 days ago in which he landed on his buttocks and due to pain has been bedridden for the past 2 days. Admission for IV hydration and repeat renal indices. CK added on. 1L NS started. d/w Dr Barajas Diagnosis Primary Impression: MIRNA (acute kidney injury) Additional Impression: Hyperkalemia Admitting Information Admitting Physician Requests: Observation Raudel Vyas MD Apr 04, 2017 20:20
--- NOTE | 2017-04-04 20:54 | HHI.HP ---
HPI Service [facility] Primary Care Physician [facility] Admission Diagnosis MIRNA, HyperK Diagnoses: (1) Syncope Diagnosis: Principal (2) Hyperkalemia Diagnosis: Principal (3) MIRNA (acute kidney injury) Diagnosis: Principal (4) Dehydration Diagnosis: Principal (5) DM (diabetes mellitus) Diagnosis: Principal Travel History International Travel<30 Days: No Contact w/Intl Traveler <30 Da: No Traveled to Known Affected Are: No History of Present Illness This is a 56-year-old male with a PMH of HTN, COPD, h/o CVA, h/o PE on Xarelto, DM and Anxiety who was referred to the ER by the [facility] for episodes of syncope. Per pt he's been feeling generalized weakness for 1-2 wks, reports few episodes of syncope in the last 1wk, last event 2 days ago w/ significant weakness, unable to get out of bed. [facility] and referred to [facility]. States he was started on treatment for what his PCP believes is Shingles. Denies fever, chills, cough or chest pain. On arrival, BP 113/75, HR 98, O2 sat 96% on RA, Afebrile. CBC essentially unremarkable. K+ 5.3. Creatinine 1.79, previously 0.94 on 02/13/17. Pulmonary negative. CPK 50. CT Head with no acute findings. CXR negative. Review of Systems Except as stated in HPI: all other systems reviewed are Neg Past Family Social History Past Medical History PMH: HTN, COPD, h/o CVA, h/o PE on Xarelto, DM and Anxiety Past Surgical History PAST SURGICAL HISTORY: Orthopedic Surgery, Eye Surgery Allergies: Coded Allergies: Morphine (Verified Allergy, Mild, 02/10/17) Family History PAST FAMILY HISTORY: Reviewed. No h/o DM or CAD Social History PAST SOCIAL HISTORY: Negative for alcohol, tobacco or drugs. Physical Exam Vital Signs Vital Signs Date Time Temp Pulse Resp B/P Pulse Ox O2 Delivery O2 Flow Rate FiO2 04/04/17 19:37 13 97 Room Air 04/04/17 19:31 98 11 131/79 04/04/17 17:55 101 17 117/69 95 Room Air 04/04/17 17:26 98.0 98 15 113/75 96 Physical Exam PE: GENERAL: Pleasant middle-aged white male in no acute distress. HEENT: PERRLA, EOMI. No scleral icterus or conjunctival pallor. No lid lag or facial droop. Maculopapular rash to left forehead, no vesicles noted CARDIOVASCULAR: Regular rate and rhythm. No obvious murmurs to auscultation. No chest tenderness to palpation. RESPIRATORY: No obvious rhonchi or wheezing. Clear to auscultation. Breath sounds equal bilaterally. GASTROINTESTINAL: Abdomen soft, non-tender, nondistended. BS normal. MUSCULOSKELETAL: Extremities without clubbing, cyanosis, or edema. No obvious deformities. NEUROLOGICAL: Awake, alert and oriented x4. No focal neurologic deficits. Moving both upper and lower extremities spontaneously. Laboratory Laboratory Tests Test 04/04/17 17:23 White Blood Count 7.8 Red Blood Count 4.86 Hemoglobin 14.8 Hematocrit 44.8 Mean Corpuscular Volume 92.1 Mean Corpuscular Hemoglobin 30.5 Mean Corpuscular Hemoglobin 33.1 Concent Red Cell Distribution Width 14.6 Platelet Count 161 Mean Platelet Volume 9.3 Neutrophils (%) (Auto) 76.1 Lymphocytes (%) (Auto) 14.4 Monocytes (%) (Auto) 6.5 Eosinophils (%) (Auto) 2.4 Basophils (%) (Auto) 0.6 Neutrophils # (Auto) 5.9 Lymphocytes # (Auto) 1.1 Monocytes # (Auto) 0.5 Eosinophils # (Auto) 0.2 Basophils # (Auto) 0.0 CBC Comment DIFF FINAL Differential Comment Activated Partial 32.0 Thromboplast Time Sodium Level 136 Potassium Level 5.3 Chloride Level 98 Carbon Dioxide Level 29.5 Anion Gap 9 Blood Urea Nitrogen 20 Creatinine 1.79 Estimat Glomerular Filtration 39 Rate Random Glucose 216 Calcium Level 9.1 Troponin I 0.04 Result Diagram: 04/04/17 1723 04/04/17 1723 Assessment and Plan Problem List: (1) Syncope ICD Code: R55 Status: Acute (2) Hyperkalemia ICD Code: E87.5 Status: Resolved (3) MIRNA (acute kidney injury) ICD Code: N17.9 Status: Acute (4) Dehydration ICD Code: E86.0 Status: Acute (5) DM (diabetes mellitus) ICD Code: E11.9 Status: Acute Assessment and Plan A/P: 1. Syncope: reports multiple syncopal events over the last 1-2wks, last episode [address] Head w/ no acute findings, images reviewed by me. Likely secondary to dehydration. Trop negative. Echo 10/31/16 w/ EF 50-55%. Admit for Observation, telemetry. Check serial troponin. CXR w/ no acute findings, images reviewed by me. 2. Hyperkalemia: K+ 5.3, no acute EKG changes. Give Ca/Insulin/D50. Repeat K + in am. 3. MIRNA: Creatinine 1.79, previously 0.94 on 02/13/17. Check U/a. IVF for hydration, repeat labs in am 4. Dehydration: GFR 39, previously 82, follow up U/a as above. IVF for hydration. 5. DM: Sliding scale w/ Accu-Cheks. Hold Metformin in light of renal insufficiency. 6. DVT Prophylaxis: Resume home Xarelto 7. Social work for d/c planning as needed. 8. Case discussed w/ ER physician at length. Keiko Barajas MD Apr 04, 2017 20:54
[2017-04-04] MEDS ORDERED: BISACODYL 10 MG SUPP RECTAL PRN (21:00)
[2017-04-04] MEDS ORDERED: ONDANSETRON HCL 4 MG/2 ML VIAL IVP PRN (21:00)
[2017-04-04] MEDS ORDERED: CALCIUM GLUCONATE 10% 1 GM/10 ML VIAL IV PUSH ONE (21:00)
[2017-04-04] MEDS: SODIUM CHLORIDE 0.9% FLUSH 10 ML FLUSH IV FLUSH SCH (21:00)
[2017-04-04] MEDS ORDERED: LACTULOSE SYRUP 20 GM/30 ML CUP PO PRN (21:00)
[2017-04-04] MEDS ORDERED: DEXTROSE 50% IN WATER 50 ML SYRINGE IV ONE (21:00)
[2017-04-04] MEDS ORDERED: ACETAMINOPHEN/HYDROcodone 325 MG/5 MG TAB PO PRN (21:00)
[2017-04-04] MEDS ORDERED: SODIUM CHLORIDE 0.9% FLUSH 10 ML FLUSH IV FLUSH PRN (21:00)
[2017-04-04] MEDS ORDERED: SENNOSIDES 8.6 MG TAB PO PRN (21:00)
[2017-04-04] MEDS ORDERED: MAGNESIUM HYDROXIDE SUSP 30 ML CUP PO PRN (21:00)
[2017-04-04] MEDS ORDERED: DOCUSATE SODIUM 50 MG/SENNA 8.6 MG TAB PO SCH (21:00)
[2017-04-04] MEDS ORDERED: FERR325T8 PO (21:06)
[2017-04-04] MEDS ORDERED: DEXT15LI10 PO (21:06)
[2017-04-04] MEDS ORDERED: TRAZ50TA12 PO (21:06)
[2017-04-04] MEDS ORDERED: EMPA1TAB PO (21:06)
[2017-04-04] MEDS ORDERED: B-122000 PO (21:06)
[2017-04-04] MEDS ORDERED: ALFU10TA3 PO (21:06)
[2017-04-04] MEDS ORDERED: IPRASOL INH (21:06)
[2017-04-04] MEDS ORDERED: INSULIN HUMAN REGULAR 1,000 UNITS/10 ML VIAL IV PUSH ONE (22:00)
[2017-04-04] MEDS: METOPROLOL TARTRATE 25 MG TAB PO SCH (22:47)
[2017-04-04] MEDS: ATORVASTATIN 20 MG TAB PO SCH (22:47)
[2017-04-04] MEDS: SODIUM CHLOR 0.9% 1000 ML INJ 1,000 ML IV SCH (22:48)
[2017-04-05] VITALS (8 sets, daily range): BP systolic 80–120; BP diastolic 50–66; PULSE 57–83; RESP 16–20; TEMP 96.8–98.2; O2SAT 72–97
[2017-04-05] MEDS: PREGABALIN 75 MG CAP PO SCH ×3 (00:12→22:22)
[2017-04-05] MEDS: OLANZapine 10 MG TAB PO SCH ×2 (00:12→22:23)
[2017-04-05] MEDS: ACETAMINOPHEN/HYDROcodone 325 MG/10 MG TAB PO PRN ×3 (01:21→11:58)
[2017-04-05] MEDS: SODIUM CHLOR 0.9% 1000 ML INJ 1,000 ML IV SCH ×2 (06:52→12:29)
[2017-04-05] MEDS ORDERED: INSULIN GLARGINE 1,000 UNITS/10 ML VIAL SQ SCH (09:00)
[2017-04-05] MEDS: METOPROLOL TARTRATE 25 MG TAB PO SCH (09:00)
[2017-04-05] MEDS: INSULIN DETEMIR 100 UNITS/ML VIAL SQ SCH (09:15)
[2017-04-05] MEDS: ASPIRIN 81 MG CHEW TAB CHEW SCH (09:16)
[2017-04-05] MEDS: RIVAROXABAN 20 MG TAB PO SCH (09:17)
[2017-04-05] MEDS: PANTOPRAZOLE SOD 40 MG DELAYED RELEASE TAB PO SCH (09:17)
[2017-04-05] MEDS: MAGNESIUM OXIDE 400 MG TAB PO SCH (09:17)
[2017-04-05] MEDS: SODIUM CHLORIDE 0.9% FLUSH 10 ML FLUSH IV FLUSH SCH ×2 (09:18→21:00)
[2017-04-05 09:22] LABS: AUTOMATED NEUTROPHIL # 4.2 TH/MM3 (1.8-7.7); BASOPHIL % 0.4 % (0.0-2.0); EOSINOPHIL # 0.2 TH/MM3 (0-0.4); EOSINOPHIL % 3.2 % (0.0-4.0); HEMATOCRIT 37.8 % (39.0-51.0); HEMO FLAGS DIFF FINAL; LYMPH % 27.2 % (9.0-44.0); LYMPHOCYTE # 1.9 TH/MM3 (1.0-4.8); MEAN CELL VOLUME 91.7 FL (80.0-100.0); MEAN CORPUSCULAR HEMOGLOBIN 30.9 PG (27.0-34.0); MEAN CORPUSCULAR HGB CONC 33.7 % (32.0-36.0); NEUT % 59.2 % (16.0-70.0); PLATELET COUNT 125 TH/MM3 (150-450); RED BLOOD COUNT 4.12 MIL/MM3 (4.50-5.90); RED CELL DISTRIBUTION WIDTH 14.2 % (11.6-17.2)
--- NOTE | 2017-04-05 09:38 | HHI.PR ---
Subjective Remarks Follow-up for orthostatic syncope. The patient states that he's been having episodes recently where after he is sitting for a time whenever he stands up he becomes dizzy and passes out. He states that last week his PCP was adjusting his diabetic medications which was causing him GI upset and soft stools. Is no longer having any diarrhea, nausea, vomiting this week. He reports normal intake. Otherwise he denies any recent medication changes. He thinks he was taken off of his medication for prostate at some point. He denies any history of arrhythmia, heart attack, or stenting. He still feeling a little dizzy today whenever he sits up, has not tried standing yet. Objective Vitals Vital Signs Date Time Temp Pulse Resp B/P Pulse Ox O2 Delivery O2 Flow Rate FiO2 04/05/17 08:52 97.8 70 18 92/50 97 04/05/17 04:07 97.6 57 16 99/56 94 04/05/17 01:21 16 04/05/17 01:12 97.3 68 17 104/65 94 04/04/17 23:24 98 04/04/17 22:25 97.9 90 18 130/80 97 04/04/17 21:20 96 14 137/74 96 Room Air 04/04/17 19:37 13 97 Room Air 04/04/17 19:31 98 11 131/79 04/04/17 19:00 99 14 107/67 95 Room Air 04/04/17 17:55 101 17 117/69 95 Room Air 04/04/17 17:26 98.0 98 15 113/75 96 Result Diagram: 04/05/17 0834 04/04/17 1723 Imaging Last Impressions Head CT 04/04/171824 Signed Impressions: Service Date/Time: April 18:48 - CONCLUSION: 1. No acute findings in the brain. 2. Right maxillary sinus disease. Db Ramsay MD Chest X-Ray 04/04/171824 Signed Impressions: Service Date/Time: April 18:29 - CONCLUSION: The lungs are clear. Db Ramsay MD Objective Remarks GENERAL: Well-developed well-nourished. In no acute distress. SKIN: Warm and dry. Maculopapular rash mostly on the left forehead that does cross the midline, no vesicles noted. HEENT: Normocephalic. Pupils equal and round. Mucous membranes pink and moist. CARDIOVASCULAR: Regular rate and rhythm. No murmur appreciated. RESPIRATORY: No accessory muscle use. Clear to auscultation. Breath sounds equal bilaterally. GASTROINTESTINAL: Abdomen soft, non-tender, nondistended. Bowel sounds x4. MUSCULOSKELETAL: No obvious deformities. No clubbing or cyanosis. No edema. NEUROLOGICAL: Awake and alert. No focal neurological deficits. Moves upper and lower extremities spontaneously. Normal speech. Strength 5/5. PSYCHIATRIC: Appropriate mood and affect; insight and judgment normal. A/P Problem List: (1) Syncope ICD Code: R55 Status: Acute (2) Hyperkalemia ICD Code: E87.5 Status: Acute (3) MIRNA (acute kidney injury) ICD Code: N17.9 Status: Acute (4) Dehydration ICD Code: E86.0 Status: Acute (5) DM (diabetes mellitus) ICD Code: E11.9 Status: Chronic Assessment and Plan 56-year-old male with a PMH of HTN, COPD, h/o CVA, h/o PE on Xarelto, DM and Anxiety who was referred to the ER by the [facility] for episodes of syncope Syncope: Patient reports multiple episodes of orthostatic dizziness with near syncopal and syncopal episodes. Patient states he was diagnosed with orthostatic hypotension at the [facility]. BP remains soft. Dehydration as below, likely contributing. CT Head w/ no acute findings. Trop negative x2. Echo 10/31 w/ EF 50-55%. Hold BP medications. Monitor orthostatics. IVF. Monitor on telemetry. Out of bed with PT. Hyperkalemia: K+ 5.3, no acute EKG changes. S/P Ca/Insulin/D50. Repeat K+ pending. MIRNA: Creatinine 1.79, previously 0.94 on 02/13/17. Possibly due to recent diarrhea last week. IVF. Repeat BMP pending. Hold losartan for now. Hypertension: With hypotension. Hold alpha jimena and metoprolol. Monitor orthostatics. Reintroduce blood pressure medications if tolerated/indicated. DM: Hold metformin for now. Continue home Levemir. Monitor Accu-Cheks. Sliding scale coverage if needed. DVT Prophylaxis: Continue home Xarelto Discharge Planning Addendum 1800 Shows BP did improve after fluid boluses today. Patient's a.m. labs slowly returned which showed continued worsening of renal function. Upon reassessment , the patient has been having urinary retention throughout the day. Bladder scan shows greater than 400 cc residual after voiding. He states that he's been having suprapubic pressure and bilateral flank pain today. He denies any history of kidney stone or urinary obstruction in the past. Insert Cuellar catheter. Check UA. Check abdominal CT. Consider nephrology or urology consult. Oxycodone as needed for pain, hold for hypotension. Problem Qualifiers (1) Syncope: Qualified Code: R55 - Vasovagal syncope Tommie Corral Apr 05, 2017 09:38
--- NOTE | 2017-04-05 11:07 | EKG ---
Date Performed: 04/05/2017 Time Performed: 06:13:02 PTAGE: 56 years EKG: Sinus rhythm NONSPECIFIC T-WAVE ABNORMALITY BORDERLINE ECG Since PREVIOUS TRACING , no significant change noted PREVIOUS TRACIN04/05/2017 01.40 DOCTOR: Ben Yusuf Interpretating Date/Time 04/05/2017 11:05:54
--- NOTE | 2017-04-05 12:01 | EKG ---
Date Performed: 04/04/2017 Time Performed: 18:27:26 PTAGE: 56 years EKG: Sinus rhythm Nonspecific T-wave changes ABNORMAL ECG PREVIOUS TRACING : 02/10/2017 18.01 Compared to the prior study, nonspecific T-wave changes are now present. DOCTOR: Ben Yusuf Interpretating Date/Time 04/05/2017 12:00:41
--- NOTE | 2017-04-05 12:02 | EKG ---
Date Performed: 04/05/2017 Time Performed: 01:40:22 PTAGE: 56 years EKG: Sinus rhythm MODERATE VOLTAGE CRITERIA FOR LVH, CONSIDER NORMAL VARIANT ABNORMAL ECG PREVIOUS TRACING 04/04/17 Compared to the prior study, nonspecific T-wave changes have improve d. DOCTOR: Ben Yusuf Interpretating Date/Time 04/05/2017 12:01:16
[2017-04-05] MEDS ORDERED: SODIUM CHLOR 0.9% 250 ML INJ 250 ML IV ONE (13:00)
[2017-04-05] MEDS ORDERED: DEXTROSE 50% IN WATER 50 ML VIAL(D50) IV PRN (14:15)
[2017-04-05] MEDS ORDERED: GLUCAGON 1 MG/ML VIAL OTHER PRN (14:15)
[2017-04-05] MEDS ORDERED: SODIUM CHLOR 0.9% 1000 ML INJ 1,000 ML IV ONE (14:30)
[2017-04-05] MEDS: ACETAMINOPHEN 325 MG TAB PO PRN (16:32)
[2017-04-05 17:10] LABS: ALKALINE PHOSPHATASE 79 U/L (45-117); ALT (GPT) 16 U/L (12-78); ANION GAP 8 MEQ/L (5-15); AST (GOT) 11 U/L (15-37); BLOOD UREA NITROGEN 32 MG/DL (7-18); CHLORIDE 103 MEQ/L (98-107); GLOMERULAR FILTRATION RATE 30 ML/MIN (>89); POTASSIUM 4.9 MEQ/L (3.5-5.1); SODIUM (NA) 134 MEQ/L (136-145); TOTAL BILIRUBIN ADULT 0.4 MG/DL (0.2-1.0)
[2017-04-05 17:11] LABS: CREATINE KINASE 48 U/L (39-308)
[2017-04-05] MEDS: INSULIN ASPART SUPPLEMENTAL SCALE SQ SCH ×2 (18:05→21:00)
[2017-04-05 18:36] LABS: BLOOD, URINE NEG (NEG); COMMENT (UR) CULTURE INDICATED; CULTURE IF INDICATED CULTURE INDICATED; GLUCOSE,URINE NEG (NEG); HYALINE CAST, URINE 30 /lpf (RARE); KETONE, URINE NEG (NEG); MUCUS URINE FEW /lpf (OCC); NITRITE,URINE NEG (NEG); PH, URINE 5.5 (5.0-8.5); SQUAMOUS EPITHELIAL CELL URINE <1 /hpf (0-5); URINE COLOR YELLOW (YELLW/STRAW)
[2017-04-05] MEDS: ATORVASTATIN 20 MG TAB PO SCH (22:22)
[2017-04-06] VITALS (18 sets, daily range): BP systolic 111–210; BP diastolic 61–113; PULSE 73–123; RESP 18–20; TEMP 98–100.4; O2SAT 72–99
[2017-04-06] MEDS: ACETAMINOPHEN 325 MG TAB PO PRN (00:23)
[2017-04-06] MEDS: SODIUM CHLOR 0.9% 1000 ML INJ 1,000 ML IV SCH ×3 (03:32→22:52)
[2017-04-06] MEDS: INSULIN ASPART SUPPLEMENTAL SCALE SQ SCH ×4 (06:40→20:45)
--- NOTE | 2017-04-06 08:38 | HHI.PR ---
Subjective Remarks Follow up for orthostatic syncope, MIRNA, urinary retention. The patient reports feeling better today. Complains of some mild back pain and not sleeping well overnight. Still has some mild diffuse abdominal discomfort, denies nausea/ vomiting. Has not had a BM in 2 days but refuses stool softener while in the hospital. He wants the Cuellar removed. Denies fevers/chills. He does admit to some lightheadedness upon standing, denies any lightheadedness/dizziness while sitting in bed. He has no other medical complaints at this time. Objective Vitals Vital Signs Date Time Temp Pulse Resp B/P Pulse Ox O2 Delivery O2 Flow Rate FiO2 04/06/17 05:50 18 04/06/17 04:34 98 04/06/17 04:15 98.0 90 20 126/68 90 04/06/17 03:53 91 04/06/17 01:45 18 04/06/17 00:18 98.0 76 18 133/74 95 04/06/17 00:00 73 04/05/17 23:43 18 04/05/17 20:08 98.0 83 20 120/65 94 104/66 105/64 04/05/17 20:05 76 04/05/17 16:31 96.8 72 18 109/63 72 04/05/17 12:29 98.2 62 20 88/54 95 04/05/17 09:51 96.8 70 18 92/50 96 107/55 80/50 04/05/17 08:52 97.8 70 18 92/50 97 I/O 04/05/17 04/05/17 04/05/17 04/06/17 04/06/17 04/06/17 07:00 15:00 23:00 07:00 15:00 23:00 Intake Total 1250 ml 1680 ml Output Total 1900 ml Balance 1250 ml -220 ml Intake Oral 480 ml IV Total 1250 ml 1200 ml Output Urine Total 1900 ml Result Diagram: 04/05/17 0834 04/05/17 1458 Imaging Last Impressions Head CT 04/04/17 1825 Signed Impressions: Service Date/Time: April 18:48 - CONCLUSION: 1. No acute findings in the brain. 2. Right maxillary sinus disease. Db Ramsay MD Chest X-Ray 04/04/17 4692 Signed Impressions: Service Date/Time: April 18:29 - CONCLUSION: The lungs are clear. Db Ramsay MD Objective Remarks GENERAL: Well-nourished, well-developed middle aged male patient in NAD. SKIN: Warm and dry. No rash. HEENT: Normocephalic. Atraumatic.Pupils equal and round. Mucous membranes pink and moist. NECK: Supple. Trachea midline. CARDIOVASCULAR: Regular rate and rhythm. S1, S2 noted. No murmur appreciated. RESPIRATORY: No accessory muscle use. Clear to auscultation. Breath sounds equal bilaterally. GASTROINTESTINAL: Abdomen soft, non-tender, nondistended. Normoactive bowel sounds x4. MUSCULOSKELETAL: No obvious deformities. Extremities without clubbing, cyanosis , or edema. NEUROLOGICAL: Awake and alert. No obvious cranial nerve deficits. Motor grossly within normal limits. Normal speech. PSYCHIATRIC: Appropriate mood and affect; insight and judgment normal. Medications and IVs Current Medications Medications (Trade) Dose Ordered Sig/Dario Route Start Time Stop Time Status Last Admin (Aspirin Chew) 81 mg DAILY CHEW 04/05/17 09:00 04/05/17 09:16 (Lipitor) 20 mg HS PO 04/04/17 21:00 04/05/17 22:22 (Mag-Ox) 400 mg DAILY PO 04/05/17 09:00 04/05/17 09:17 (Lopressor) 25 mg BID PO 04/04/17 21:00 Hold 04/04/17 22:47 (ZyPREXA) 10 mg HS PO 04/04/17 21:00 04/05/17 22:23 (Protonix) 40 mg DAILY PO 04/05/17 09:00 04/05/17 09:17 (Lyrica) 75 mg BID PO 04/04/17 21:00 04/05/17 22:22 Rivaroxaban 20 mg 20 mg DAILY PO 04/05/17 09:00 04/05/17 09:17 (NS 1000 ml Inj) 1,000 ml @ 100 mls/hr Q10H IV 04/04/17 20:52 04/06/17 03:32 (NS Flush) 2 ml UNSCH PRN IV FLUSH 04/04/17 21:00 (NS Flush) 2 ml BID IV FLUSH 04/04/17 21:00 04/05/17 09:18 (Zofran Inj) 4 mg Q6H PRN IVP 04/04/17 21:00 (Tylenol) 650 mg Q6H PRN PO 04/04/17 21:00 04/06/17 00:23 (Milk Of Magnesia Liq) 30 ml Q12H PRN PO 04/04/17 21:00 (Senokot) 17.2 mg Q12H PRN PO 04/04/17 21:00 (Dulcolax Supp) 10 mg DAILY PRN RECTAL 04/04/17 21:00 (Lactulose Liq) 30 ml DAILY PRN PO 04/04/17 21:00 (Levemir Inj) 15 units DAILY SQ 04/05/17 09:30 04/05/17 09:15 (D50w (Vial) Inj) 50 ml UNSCH PRN IV 04/05/17 14:15 (Glucagon Inj) 1 mg UNSCH PRN OTHER 04/05/17 14:15 Oxycodone HCl 5 mg 5 mg Q8H PRN PO 04/05/17 18:15 04/06/17 04:36 (Rocephin Inj/NS Inj) 100 ml @ 200 mls/hr Q24H IV 04/06/17 08:00 Urinary Catheter: Yes Assessment to: Continue Cuellar insert reason: Obstruction/Retention Date of Insertion: Apr 05, 2017 A/P Problem List: (1) Syncope ICD Code: R55 Status: Acute (2) Hyperkalemia ICD Code: E87.5 Status: Acute (3) MIRNA (acute kidney injury) ICD Code: N17.9 Status: Acute (4) Dehydration ICD Code: E86.0 Status: Acute (5) DM (diabetes mellitus) ICD Code: E11.9 Status: Chronic Assessment and Plan 56-year-old male with a PMH of HTN, COPD, h/o CVA, h/o PE on Xarelto, DM and Anxiety who was referred to the ER by the [facility] for episodes of syncope Syncope: Patient reports multiple episodes of orthostatic dizziness with near syncopal and syncopal episodes. Patient states he [facility]. BP remains soft. Dehydration as below, likely contributing. CT Head w/ no acute findings. Trop negative x2. Echo 10/31 w/ EF 50-55%. Hold BP medications. Given IVF. Monitor on telemetry. Out of bed with PT. PT recommending HHC and rollator, case management consulted. Repeat orthostatics today. Hyperkalemia: K+ 5.3, no acute EKG changes. S/P Ca/Insulin/D50. Repeat K+ 4.9. Monitor. MIRNA: Creatinine 1.79, previously 0.94 on 02/13/17. Suspect secondary to urinary retention and recent diarrhea. Given IVF. Repeat BMP shows worsening Cr 1.79 -- > 2.23. Cuellar placed 04/05. Repeat BMP pending. Urinary Retention: post void bladder scan with >400cc urine. Cuellar placed 04/05. Check abdominal CT. Monitor renal function. Attempt void trial today. UTI: UA with large leuks, WBCs. Started on IV Rocephin. Monitor urine culture. Hypertension: With hypotension. Hold alpha jimena and metoprolol. Monitor orthostatics. Reintroduce blood pressure medications if tolerated/indicated. DM: Hold metformin for now. Continue home Levemir. Monitor Accu-Cheks. Sliding scale coverage if needed. DVT Prophylaxis: Continue home Xarelto Discharge Planning 0840hrs: Discharge pending abdominal CT and improvement of renal function. Case management to arrange rollator and HHC at discharge. Problem Qualifiers (1) Syncope: Qualified Code: R55 - Vasovagal syncope Harper Li PA-C Apr 06, 2017 08:38
[2017-04-06] MEDS ORDERED: MISCMIS81 (08:46)
--- NOTE | 2017-04-06 08:48 | HHI.FF ---
Face to Face Verification Diagnosis: (1) Syncope (2) Orthostatic hypotension (3) History of stroke (4) Unsteady gait (5) DM (diabetes mellitus) (6) MIRNA (acute kidney injury) (7) Dehydration (8) Mild neurocognitive disorder Physical Therapy Order: Evaluate and Treat, Improve ambulation, Strength and gait training Occupational Therapy Order: Evaluate and Treat, Improve ADL Home Health Nursing Order: Medical education Signs/symptoms of disease process Nursing assessment with vital signs I have seen patient Vinicio Julio on 04/06/17. My clinical findings support the need for the requested home health care services because: Ltd mobility - disease progression Limited ability to care for self High risk of falls I certify that my clinical findings support that this patient is homebound because: Unsteady gait/balance Unsafe to leave home unassisted Unable to use public transportation Harper Li PA-C Apr 06, 2017 8:48 am
[2017-04-06] MEDS: SODIUM CHLORIDE 0.9% FLUSH 10 ML FLUSH IV FLUSH SCH ×2 (09:00→20:39)
--- NOTE | 2017-04-06 09:11 | RADRPT ---
EXAM DATE/TIME: 04/06/2017 08:55 [facility] COMPARISON: No previous studies available for comparison. INDICATIONS : Urinary retention, bilateral abdominal and flank pain. ORAL CONTRAST: No oral contrast ingested. RADIATION DOSE: 13.59 CTDIvol (mGy) MEDICAL HISTORY : Cardiovascular disease. Hypertension. Chronic obstructive pulmonary disease. SURGICAL HISTORY : None. ENCOUNTER: Initial ACUITY: 2 days PAIN SCALE: 7/10 LOCATION: Bilateral flank TECHNIQUE: Volumetric scanning of the abdomen and pelvis was performed. Using automated exposure control and ad justment of the mA and/or kV according to patient size, radiation dose was kept as low as reasonably achievable to obtain optimal diagnostic quality images. DICOM format image data is available electro nically for review and comparison. FINDINGS: LOWER LUNGS: There is atelectasis at the left lung base. LIVER: Homogeneous density without lesion. There is no dilation of the biliary tree. There are small calcif ied stones in the gallbladder. No gallbladder wall thickening is present. SPLEEN: Normal size without lesion. There is curvilinear capsular calcification inferiorly. PANCREAS: Within normal limits. KIDNEYS: Normal in size and shape. There is no mass, stone, or hydronephrosis. ADRENAL GLANDS: Within normal limits. VASCULAR: There is no aortic aneurysm. There is mild atherosclerotic disease. BOWEL/MESENTERY: The stomach, small bowel, and colon demonstrate no acute abnormality. There is no free intraperitone al air or fluid. There is sigmoid diverticulosis. ABDOMINAL WALL: Within normal limits. RETROPERITONEUM: There is no lymphadenopathy. BLADDER: No wall thickening or mass. Cuellar catheter is present within a decompressed urinary bladder. REPRODUCTIVE: Within normal limits. INGUINAL: There is no lymphadenopathy or hernia. MUSCULOSKELETAL: There are degenerative changes of the lumbar spine. CONCLUSION: 1. No acute finding is identified within the abdomen or pelvis to explain the clinical symptoms. 2. Nonacute findings include cholelithiasis and sigmoid diverticulosis. Guerrero Alva MD on April 06, 2017 at 9:04 Board Certified Radiologist. This report was verified electronically.
[2017-04-06] MEDS: RIVAROXABAN 20 MG TAB PO SCH (10:31)
[2017-04-06] MEDS: cefTRIAXone INJ 1,000 MG in SODIUM CHLORIDE 0.9% INJ 100 ML IV SCH (10:31)
[2017-04-06] MEDS: ASPIRIN 81 MG CHEW TAB CHEW SCH (10:31)
[2017-04-06] MEDS: PREGABALIN 75 MG CAP PO SCH ×2 (10:32→20:38)
[2017-04-06] MEDS: PANTOPRAZOLE SOD 40 MG DELAYED RELEASE TAB PO SCH (10:32)
[2017-04-06] MEDS: MAGNESIUM OXIDE 400 MG TAB PO SCH (10:32)
[2017-04-06] MEDS: INSULIN DETEMIR 100 UNITS/ML VIAL SQ SCH (10:34)
[2017-04-06 14:32] LABS: POTASSIUM 4.6 MEQ/L (3.5-5.1)
--- NOTE | 2017-04-06 16:24 | RADRPT ---
EXAM DATE/TIME: 04/05/2017 18:12 [facility] COMPARISON: No previous studies available for comparison. INDICATIONS : Increased BUN/Creatinine. MEDICAL HISTORY : Hypercholesterolemia. Gastroesophageal reflux disease. Chronic obstructive pulmonary disease. Cerebro vascular accident. Hypertension. Diabetes. Anxiety. Shingles. SURGICAL HISTORY : Multiple orthopedic surguries, unspecified. Left shoulder surgery. ENCOUNTER: Initial ACUITY: 1 day PAIN SCORE: 9/10 LOCATION: Bilateral flank MEASUREMENTS: RIGHT KIDNEY: 12.7 x 6.4 x 6.1 cm LEFT KIDNEY: 12.8 x 6.1 x 6.4 cm FINDINGS: RIGHT KIDNEY: Renal cortex is normal in thickness and echotexture. No hydronephrosis, stone, or mass. LEFT KIDNEY: Renal cortex is normal in thickness and echotexture. No hydronephrosis, stone, or mass. BLADDER: Smooth margins. Mild distention. CONCLUSION: Normal sonographic appearance to the kidneys. Db Ramsay MD on April 05, 2017 at 18:47 Board Certified Radiologist. This report was verified electronically.
[2017-04-06] MEDS ORDERED: ALFU10TA3 PO (17:18)
[2017-04-06] MEDS: TAMSULOSIN HCL 0.4 MG CAP PO SCH (18:22)
[2017-04-06] MEDS: ATORVASTATIN 20 MG TAB PO SCH (20:38)
[2017-04-06] MEDS ORDERED: cloNIDine HCL 0.1 MG TAB PO ONE (23:15)
--- NOTE | 2017-04-06 23:42 | RADRPT ---
EXAM DATE/TIME: 04/06/2017 23:30 [facility] COMPARISON: CHEST SINGLE AP, April 04, 2017, 18:29. INDICATIONS : Short of breath. MEDICAL HISTORY : None. SURGICAL HISTORY : None. ENCOUNTER: Initial ACUITY: 1 day PAIN SCORE: 6/10 LOCATION: Bilateral chest FINDINGS: The cardiac silhouette is enlarged in transverse diameter. There are findings of congestive heart tramaine lure with interstitial and alveolar opacity bilaterally. This is new when compared with the prior exa m. No pleural effusions are identified. CONCLUSION: 1. Cardiomegaly and findings of congestive heart failure. This is new when compared with the prior ex am. Ben Aden MD on April 06, 2017 at 23:41 Board Certified Radiologist. This report was verified electronically.
[2017-04-06] MEDS: OLANZapine 10 MG TAB PO SCH (23:43)
[2017-04-06 23:49] LABS: BLOOD GAS BASE EXCESS -2.4 mmol/L (-2-2); BLOOD GAS CARBOXYHEMOGLOBIN 1.4 % (0-4); BLOOD GAS HCO3 22 mmol/L (22-26); BLOOD GAS METHEMOGLOBIN 0.8 % (0-2); BLOOD GAS O2 HGB SATURATION 87 % (90-100); BLOOD GAS OXYGEN CONTENT 14.6 Vol % (12.0-20.0); BLOOD GAS PCO2 38 mmHg (38-42); BLOOD GAS PO2 57 mmHg (61-120); TEMP CORR TO 98.6
[2017-04-07] VITALS (9 sets, daily range): BP systolic 92–156; BP diastolic 50–79; PULSE 66–98; RESP 18–20; TEMP 96.8–98.7; O2SAT 94–100
[2017-04-07 00:01] LABS: CRITICAL VALUE YES; LITER FLOW 5 L/M; OXYGEN DEVICE NASAL CANNULA
[2017-04-07 00:02] LABS: DRAW SITE RT RADIAL; NUMBER OF ARTERIAL PUNCTURES 2; STAT YES; ULNAR PULSE PRESENT
[2017-04-07] MEDS ORDERED: FUROSEMIDE 20 MG/2 ML VIAL IV PUSH ONE (00:15)
--- NOTE | 2017-04-07 00:28 | HHI.PR ---
Addendum to Inpatient Note Addendum Reason: Additional Documentation Additional Information S: Team paged at [phone] for Hal[facility] by nursing staff secondary to shortness of breath. Upon arrival nursing staff reports patient became short of breath with desaturation to 70%. Patient also endorsed diaphoresis and restlessness during acute episode. Upon initial vital sign check patient's heart rate was in the 110s, systolic blood pressure in the 170s, and axillary temperature up to 100.4 degrees. Of note patient previously admitted for bilateral PEs and HCAP. Patient has been anticoagulated during hospitalization with Xarelto. O: VITALS: 100.2 axillary, 138/72, 91 bpm, respiratory rate 23, oxygen saturation 90% GENERAL: Well-nourished, well-developed male patient sitting up in bed in mild respiratory distress. SKIN: Warm and dry. Erythematous rash covering his bilateral antecubital fossa, for head, and trunk. HEENT: Atraumatic, normocephalic with EOMI. MMM. No rhinorrhea. CARDIOVASCULAR: Regular rate and rhythm without obvious murmurs, gallops, or rubs. RESPIRATORY: Decreased breath sounds bilaterally with accessory muscle use. Unable to appreciate CRW due to poor airflow. GASTROINTESTINAL: Abdomen soft, non-tender, nondistended with positive bowel sounds. No masses appreciated. MUSCULOSKELETAL: No cyanosis or edema. Mild clubbing of fingernail beds. NEURO/PSYCH: Afocal. Awake, alert, and oriented x3. Normal speech and interaction with medical staff. A: Mr. Julio is a 56-year-old male admitted for repeated syncope. P: 1. SOB DDx: CHF exacerbation vs. HCAP vs. PE vs. Panic Attack Patient currently meeting sepsis criteria (fever, tachycardia, and tachypnea) with possible site of infection of UTI versus pneumonia. Stat ABG, CBC, CMP, UA, lactic acid, and blood cultures pending. Chest x-ray: Bilateral hazy infiltrates in lower lobes, per medical team read. Patient currently on daily ceftriaxone. Discussed with primary team possibility of CTA, Lasix treatment, and broadening of antibiotics. Primary team will resume care at this time per Dr. Barton. SDW: Isiah Irving MD R2 Apr 07, 2017 00:28
[2017-04-07 00:54] LABS: ANION GAP 9 MEQ/L (5-15); AST (GOT) 11 U/L (15-37); BICARBONATE 23.9 MEQ/L (21.0-32.0); BLOOD UREA NITROGEN 20 MG/DL (7-18); CHLORIDE 107 MEQ/L (98-107); GLOMERULAR FILTRATION RATE 71 ML/MIN (>89); POTASSIUM 4.6 MEQ/L (3.5-5.1); SODIUM (NA) 140 MEQ/L (136-145)
[2017-04-07 00:55] LABS: AUTOMATED NEUTROPHIL # 3.9 TH/MM3 (1.8-7.7); BASOPHIL % 0.8 % (0.0-2.0); EOSINOPHIL # 0.2 TH/MM3 (0-0.4); EOSINOPHIL % 3.4 % (0.0-4.0); HEMATOCRIT 33.6 % (39.0-51.0); HEMO FLAGS DIFF FINAL; LYMPH % 19.4 % (9.0-44.0); LYMPHOCYTE # 1.1 TH/MM3 (1.0-4.8); MEAN CELL VOLUME 89.8 FL (80.0-100.0); MEAN CORPUSCULAR HEMOGLOBIN 31.1 PG (27.0-34.0); MEAN CORPUSCULAR HGB CONC 34.7 % (32.0-36.0); MONO % 9.3 % (0.0-8.0); NEUT % 67.1 % (16.0-70.0); PLATELET COUNT 113 TH/MM3 (150-450); RED BLOOD COUNT 3.75 MIL/MM3 (4.50-5.90); RED CELL DISTRIBUTION WIDTH 13.8 % (11.6-17.2); WHITE BLOOD COUNT 5.8 TH/MM3 (4.0-11.0)
[2017-04-07 00:57] LABS: ALKALINE PHOSPHATASE 79 U/L (45-117); ALT (GPT) 15 U/L (12-78); TOTAL BILIRUBIN ADULT 0.4 MG/DL (0.2-1.0)
[2017-04-07 01:09] LABS: BLOOD, URINE TRACE (NEG); GLUCOSE,URINE NEG (NEG); KETONE, URINE NEG (NEG); NITRITE,URINE NEG (NEG); URINE COLOR LIGHT-YELLOW (YELLW/STRAW)
[2017-04-07 01:14] LABS: COMMENT (UR) CULT NOT INDICATED; CULTURE IF INDICATED CULT NOT INDICATED
[2017-04-07] MEDS: INSULIN ASPART SUPPLEMENTAL SCALE SQ SCH ×4 (05:07→22:05)
[2017-04-07] MEDS: TAMSULOSIN HCL 0.4 MG CAP PO SCH (09:00)
[2017-04-07] MEDS: SODIUM CHLORIDE 0.9% FLUSH 10 ML FLUSH IV FLUSH SCH ×2 (09:00→21:54)
[2017-04-07] MEDS: INSULIN DETEMIR 100 UNITS/ML VIAL SQ SCH (09:00)
[2017-04-07] MEDS: MAGNESIUM OXIDE 400 MG TAB PO SCH (09:13)
[2017-04-07] MEDS: PANTOPRAZOLE SOD 40 MG DELAYED RELEASE TAB PO SCH (09:13)
[2017-04-07] MEDS: RIVAROXABAN 20 MG TAB PO SCH (09:14)
[2017-04-07] MEDS: ASPIRIN 81 MG CHEW TAB CHEW SCH (09:16)
[2017-04-07] MEDS: PREGABALIN 75 MG CAP PO SCH ×2 (09:16→21:55)
[2017-04-07] MEDS: cefTRIAXone INJ 1,000 MG in SODIUM CHLORIDE 0.9% INJ 100 ML IV SCH (09:17)
--- NOTE | 2017-04-07 10:05 | HHI.PR ---
Subjective Remarks Follow-up for shortness of breath, urinary retention No further urinary retention, voiding well, no further syncope. Patient however had an episode of shortness of breath overnight, was given Lasix, good urine output, now patient feels a lot better, on nasal cannula. Also complaining of mild hip pain and chronic facial rash with scaling. No chest pain overnight. Objective Vitals Vital Signs Date Time Temp Pulse Resp B/P Pulse Ox O2 Delivery O2 Flow Rate FiO2 04/07/17 08:51 97.4 79 20 120/68 99 04/07/17 03:52 98.6 83 18 117/60 94 04/07/17 00:20 98.7 98 19 156/79 98 04/06/17 23:40 99 Partial Rebreather 13.00 04/06/17 23:22 100.2 110 20 182/97 92 04/06/17 23:16 100.2 120 19 182/97 90 04/06/17 23:07 92 5.00 04/06/17 23:07 87 Nasal Cannula 2.00 04/06/17 23:07 100.4 107 20 188/101 86 04/06/17 22:55 100.4 123 19 186/103 75 04/06/17 22:50 121 185/105 73 04/06/17 22:40 98.4 120 210/113 72 04/06/17 20:18 95 19 155/76 98 04/06/17 20:18 98.2 87 18 169/83 95 04/06/17 20:18 98 18 158/84 98 04/06/17 17:13 98.0 76 18 115/67 96 04/06/17 15:53 109 04/06/17 11:55 98.0 85 18 134/71 94 04/06/17 10:00 86 I/O 04/06/17 04/06/17 04/06/17 04/07/17 04/07/17 04/07/17 07:00 15:00 23:00 07:00 15:00 23:00 Intake Total 1680 ml Output Total 1900 ml 800 ml 200 ml 300 ml Balance -220 ml -800 ml -200 ml -300 ml Intake Oral 480 ml IV Total 1200 ml Output Urine Total 1900 ml 800 ml 200 ml 300 ml # Voids 8 # Bowel Movements 0 Result Diagram: 04/07/17 0021 04/07/17 0021 Imaging Last Impressions Renal Ultrasound 04/06/17 0000 Signed Impressions: Service Date/Time: Wednesday, April 05, 2017 18:12 - CONCLUSION: Normal sonographic appearance to the kidneys. Db Ramsay MD Chest X-Ray 04/06/17 0000 Signed Impressions: Service Date/Time: Thursday, April 06, 2017 23:30 - CONCLUSION: 1. Cardiomegaly and findings of congestive heart failure. This is new when compared with the prior exam. Ben Aden MD Abdomen/Pelvis CT 04/06/17 0000 Signed Impressions: Service Date/Time: Thursday, April 06, 2017 08:55 - CONCLUSION: 1. No acute finding is identified within the abdomen or pelvis to explain the clinical symptoms. 2. Nonacute findings include cholelithiasis and sigmoid diverticulosis. Guerrero Alva MD Head CT 04/04/17 1825 Signed Impressions: Service Date/Time: April 18:48 - CONCLUSION: 1. No acute findings in the brain. 2. Right maxillary sinus disease. Db Ramsay MD Objective Remarks Not in distress, well-nourished, looks stated age, on nasal cannula PERRL, pink conjunctiva without injection, anicteric, left supraorbital erythematous rash, with scaling, mildly pruritic. Normal rate and regular rhythm, no murmurs gallops or rubs appreciated. Occasional crackles from mid to base. Normal bowel sounds, soft, non-tender, nondistended, no guarding. Extremities without clubbing, cyanosis, no significant edema AAO x3, no cranial nerve deficits, moves all 4 extremities, no focal neurologic deficits Normal mood, appropriate affect Date of Insertion: Apr 05, 2017 A/P Problem List: (1) Syncope ICD Code: R55 Status: Acute (2) Hyperkalemia ICD Code: E87.5 Status: Acute (3) MIRNA (acute kidney injury) ICD Code: N17.9 Status: Acute (4) Dehydration ICD Code: E86.0 Status: Acute (5) DM (diabetes mellitus) ICD Code: E11.9 Status: Chronic Assessment and Plan 56-year-old male with a PMH of HTN, COPD, h/o CVA, h/o PE on Xarelto, DM and Anxiety who was referred to the [facility] by [facility] for episodes of syncope Syncope: Patient reports multiple episodes of orthostatic dizziness with near syncopal and syncopal episodes. Patient states he was diagnosed with orthostatic hypotension at the [facility]. BP remains soft. Dehydration as below, likely contributing. CT Head w/ no acute findings. Trop negative x2. Echo 10/31 w/ EF 50-55%. Continue to hold antihypertensives. Stop IVF. Resolved. We 'll check orthostatics.PT recommending HHC and rollator, case management consulted. Flash pulmonary edema-likely secondary to volume overload, stop IVF, will give one more dose of Lasix, echocardiogram as above. Monitor urine output. Check BMP tomorrow. Chest x-ray showed pulmonary edema. Doubt PE, patient is already on Xarelto. Bilateral hip pain-likely secondary to his fall, increase Roxicodone, check bilateral hip x-ray Seborrheic dermatitis-start steroid and antifungal ointment. Hyperkalemia: Resolved MIRNA: Resolved with IVF. Urinary Retention: post void bladder scan with >400cc urine. Cuellar placed 04/05. Check abdominal CT. Monitor renal function. Cuellar catheter removed yesterday, voiding well. UTI: UA with large leuks, WBCs. Urine culture grew group D enterococcus, 10-15, 000 cc infused, stop ceftriaxone. Recheck CBC tomorrow. Hypertension: With hypotension. Restart alpha jimena, continue to hold metoprolol. Monitor orthostatics. DM: Hold metformin for now. Continue home Levemir. Monitor Accu-Cheks. Sliding scale coverage if needed. DVT Prophylaxis: Continue home Xarelto Discharge Planning Discharge tomorrow if medically stable. Problem Qualifiers (1) Syncope: Qualified Code: R55 - Vasovagal syncope Ja Rooney MD Apr 07, 2017 10:05
[2017-04-07] MEDS ORDERED: FUROSEMIDE 40 MG/4 ML VIAL IV PUSH ONE (10:15)
--- NOTE | 2017-04-07 12:12 | RADRPT ---
EXAM DATE/TIME: 04/07/2017 11:53 [facility] COMPARISON: CT ABDOMEN & PELVIS W/O CONTRAST, April 06, 2017, 8:55. INDICATIONS : Pain from fall backwards. MEDICAL HISTORY : None. SURGICAL HISTORY : None. ENCOUNTER: Initial ACUITY: 4 - 6 days PAIN SCORE: 8/10 LOCATION: Bilateral hips and lower back. FINDINGS: AP view of the pelvis with 2 views of the left hip joint demonstrate no acute fracture or dislocation . There is hypertrophic bone at the right pubic bone likely related to an old healed fracture. There is mild left and moderate right osteoarthritis at the hip joints. No soft tissue abnormality or radio paque foreign body is seen. CONCLUSION: No acute abnormality is identified. There is an old healed right pubic bone fracture. Guerrero Alva MD on April 07, 2017 at 12:09 Board Certified Radiologist. This report was verified electronically.
--- NOTE | 2017-04-07 12:13 | RADRPT ---
EXAM DATE/TIME: 04/07/2017 11:53 [facility] COMPARISON: HIP LEFT (AP&LAT 2/3VWS) W AP PELVIS, April 07, 2017, 11:53. CT ABDOMEN & PELVIS W/O CONTRAST, 2016, 8:55. INDICATIONS : Pain from fall backwards. MEDICAL HISTORY : None. SURGICAL HISTORY : None. ENCOUNTER: Initial ACUITY: 4 - 6 days PAIN SCORE: 8/10 LOCATION: Bilateral hips and lower back. FINDINGS: AP and lateral views of the right hip joint demonstrate no fracture or dislocation. Mineralization is normal. There is joint space narrowing and osteophytes at the right hip joint. Pelvic bones demonstr ate no acute finding. There is hypertrophic bone at the right pubic region. CONCLUSION: No acute right hip joint abnormality is identified. There is mild to moderate osteoarthritis at the h ip joint. Guerrero Alva MD on April 07, 2017 at 12:11 Board Certified Radiologist. This report was verified electronically.
[2017-04-07] MEDS: MIDODRINE 5 MG TAB PO SCH ×2 (12:49→16:54)
[2017-04-07] MEDS: TRIAMCINOLONE ACETONIDE 0.1% OINT 15 GM TUBE TOPICAL SCH ×2 (12:55→21:56)
[2017-04-07] MEDS: ATORVASTATIN 20 MG TAB PO SCH (21:54)
[2017-04-07] MEDS: OLANZapine 10 MG TAB PO SCH (21:54)
[2017-04-08] VITALS (8 sets, daily range): BP systolic 93–126; BP diastolic 61–76; PULSE 65–86; RESP 18–20; TEMP 97.3–98.3; O2SAT 91–100
[2017-04-08] MEDS: MIDODRINE 5 MG TAB PO SCH ×2 (06:13→11:04)
[2017-04-08] MEDS: INSULIN ASPART SUPPLEMENTAL SCALE SQ SCH ×4 (06:20→20:48)
[2017-04-08] MEDS: PANTOPRAZOLE SOD 40 MG DELAYED RELEASE TAB PO SCH (08:52)
[2017-04-08] MEDS: SODIUM CHLORIDE 0.9% FLUSH 10 ML FLUSH IV FLUSH SCH ×2 (08:52→20:49)
[2017-04-08] MEDS: PREGABALIN 75 MG CAP PO SCH ×2 (08:53→20:45)
[2017-04-08] MEDS: MAGNESIUM OXIDE 400 MG TAB PO SCH (08:53)
[2017-04-08] MEDS: INSULIN DETEMIR 100 UNITS/ML VIAL SQ SCH (08:53)
[2017-04-08] MEDS: TRIAMCINOLONE ACETONIDE 0.1% OINT 15 GM TUBE TOPICAL SCH ×2 (08:53→20:48)
[2017-04-08] MEDS: RIVAROXABAN 20 MG TAB PO SCH (08:53)
[2017-04-08] MEDS: ASPIRIN 81 MG CHEW TAB CHEW SCH (08:53)
[2017-04-08 09:03] LABS: AUTOMATED NEUTROPHIL # 3.3 TH/MM3 (1.8-7.7); BASOPHIL % 0.8 % (0.0-2.0); EOSINOPHIL # 0.3 TH/MM3 (0-0.4); EOSINOPHIL % 4.5 % (0.0-4.0); HEMATOCRIT 37.9 % (39.0-51.0); HEMO FLAGS DIFF FINAL; LYMPH % 24.3 % (9.0-44.0); LYMPHOCYTE # 1.4 TH/MM3 (1.0-4.8); MEAN CELL VOLUME 91.5 FL (80.0-100.0); MEAN CORPUSCULAR HEMOGLOBIN 30.7 PG (27.0-34.0); MEAN CORPUSCULAR HGB CONC 33.6 % (32.0-36.0); MONO % 12.9 % (0.0-8.0); NEUT % 57.5 % (16.0-70.0); PLATELET COUNT 133 TH/MM3 (150-450); RED BLOOD COUNT 4.14 MIL/MM3 (4.50-5.90); RED CELL DISTRIBUTION WIDTH 14.1 % (11.6-17.2); WHITE BLOOD COUNT 5.8 TH/MM3 (4.0-11.0)
[2017-04-08 09:35] LABS: BICARBONATE 25.1 MEQ/L (21.0-32.0); POTASSIUM 4.5 MEQ/L (3.5-5.1)
[2017-04-08] MEDS ORDERED: FLUDROCORTISONE ACETATE 0.1 MG TAB PO ONE (15:30)
--- NOTE | 2017-04-08 15:31 | HHI.PR ---
Subjective Remarks Follow up for syncope, orthostatic hypotension. Patient is currently doing better. He does feel somewhat dizzy when he gets up. No chest pain, shortness of breath, fever, chills. Tolerating diet well. Objective Vitals Vital Signs Date Time Temp Pulse Resp B/P Pulse Ox O2 Delivery O2 Flow Rate FiO2 04/08/17 12:47 97.5 84 18 122/72 98 04/08/17 10:15 65 04/08/17 08:57 97.3 86 19 114/66 97 95/58 121/75 04/08/17 04:38 97.7 80 18 126/67 91 04/08/17 02:02 17 04/08/17 00:46 98.2 84 18 124/69 92 04/07/17 23:00 17 04/07/17 20:52 97.9 70 20 120/78 96 04/07/17 16:28 96.8 66 20 120/69 100 I/O 04/07/17 04/07/17 04/07/17 04/08/17 04/08/17 04/08/17 07:00 15:00 23:00 07:00 15:00 23:00 Intake Total 525 ml Output Total 300 ml Balance -300 ml 525 ml Intake Oral 525 ml Output Urine Total 300 ml # Voids 8 1 # Bowel Movements 0 Result Diagram: 04/08/17 0750 04/08/17 0750 Imaging Last Impressions Hip and Pelvis X-Ray 04/07/17 0000 Signed Impressions: Service Date/Time: Friday, April 07, 2017 11:53 - CONCLUSION: No acute abnormality is identified. There is an old healed right pubic bone fracture. Guerrero Alva MD Hip X-Ray 04/07/17 0000 Signed Impressions: Service Date/Time: Friday, April 07, 2017 11:53 - CONCLUSION: No acute right hip joint abnormality is identified. There is mild to moderate osteoarthritis at the hip joint. Guerrero Alva MD Renal Ultrasound 04/06/17 0000 Signed Impressions: Service Date/Time: Wednesday, April 05, 2017 18:12 - CONCLUSION: Normal sonographic appearance to the kidneys. Db Ramsay MD Chest X-Ray 04/06/17 0000 Signed Impressions: Service Date/Time: Thursday, April 06, 2017 23:30 - CONCLUSION: 1. Cardiomegaly and findings of congestive heart failure. This is new when compared with the prior exam. Ben Aden MD Abdomen/Pelvis CT 04/06/17 0000 Signed Impressions: Service Date/Time: Thursday, April 06, 2017 08:55 - CONCLUSION: 1. No acute finding is identified within the abdomen or pelvis to explain the clinical symptoms. 2. Nonacute findings include cholelithiasis and sigmoid diverticulosis. Guerrero Alva MD Head CT 04/04/17 1825 Signed Impressions: Service Date/Time: April 18:48 - CONCLUSION: 1. No acute findings in the brain. 2. Right maxillary sinus disease. Db Ramsay MD Objective Remarks GENERAL: AOX3, NAD. SKIN: Warm and dry. HEAD: Normocephalic. EYES: No scleral icterus. No injection or drainage. NECK: Supple, trachea midline. No JVD or lymphadenopathy. CARDIOVASCULAR: Regular rate and rhythm without murmurs, gallops, or rubs. RESPIRATORY: Breath sounds equal bilaterally. No accessory muscle use. GASTROINTESTINAL: Abdomen soft, non-tender, nondistended. MUSCULOSKELETAL: No cyanosis, or edema. BACK: Nontender without obvious deformity. No CVA tenderness. Procedures None. Date of Insertion: Apr 05, 2017 A/P Problem List: (1) Syncope ICD Code: R55 Status: Acute (2) Hyperkalemia ICD Code: E87.5 Status: Acute (3) MIRNA (acute kidney injury) ICD Code: N17.9 Status: Acute (4) Dehydration ICD Code: E86.0 Status: Acute (5) DM (diabetes mellitus) ICD Code: E11.9 Status: Chronic Assessment and Plan 56-year-old male with a PMH of HTN, COPD, h/o CVA, h/o PE on Xarelto, DM and Anxiety who [facility] - Syncope - Orthostatic Hypotension - Patient reports multiple episodes of orthostatic dizziness with near syncopal and syncopal episodes. - CT Head w/ no acute findings. Trop negative x2. Echo 10/31/16 w/ EF 50-55% . - Continue to hold antihypertensives. - Fludrocortisone would be better suited to address orthostatic hypotension - Will monitor for CHF, peripheral edema. - Start Fludrocortisone 0.1mg Qday. May need to be titrated up. Bilateral hip pain-likely secondary to his fall, increase Roxicodone, bilateral hip x-ray shows no acute findings. Seborrheic dermatitis -Continue steroid and antifungal ointment. Hyperkalemia: Resolved MIRNA: Resolved with IVF. Urinary Retention: post void bladder scan with >400cc urine. Cuellar placed 04/05. Check abdominal CT. Monitor renal function. Cuellar catheter removed, voiding well. UTI: UA with large leuks, WBCs. Urine culture grew group D enterococcus, 10-15, 000 cc infused, stop ceftriaxone. DM: Hold metformin for now. Continue home Levemir. Monitor Accu-Cheks. Sliding scale coverage if needed. Full code. Francois. Problem Qualifiers (1) Syncope: Qualified Code: R55 - Vasovagal syncope Omid Mora DO Apr 08, 2017 15:31
[2017-04-08] MEDS: OLANZapine 10 MG TAB PO SCH (20:45)
[2017-04-08] MEDS: ATORVASTATIN 20 MG TAB PO SCH (20:45)
[2017-04-09] VITALS (7 sets, daily range): BP systolic 114–140; BP diastolic 58–70; PULSE 84–102; RESP 16–20; TEMP 97.6–98.4; O2SAT 92–95
[2017-04-09] MEDS: INSULIN ASPART SUPPLEMENTAL SCALE SQ SCH ×4 (06:15→21:24)
[2017-04-09] MEDS: TRIAMCINOLONE ACETONIDE 0.1% OINT 15 GM TUBE TOPICAL SCH ×2 (09:00→21:22)
[2017-04-09] MEDS: FLUDROCORTISONE ACETATE 0.1 MG TAB PO SCH ×2 (09:00→10:44)
[2017-04-09] MEDS: INSULIN DETEMIR 100 UNITS/ML VIAL SQ SCH (09:00)
[2017-04-09] MEDS: PREGABALIN 75 MG CAP PO SCH ×2 (09:06→21:22)
[2017-04-09] MEDS: MAGNESIUM OXIDE 400 MG TAB PO SCH (09:06)
[2017-04-09] MEDS: SODIUM CHLORIDE 0.9% FLUSH 10 ML FLUSH IV FLUSH SCH ×2 (09:07→21:21)
[2017-04-09] MEDS: PANTOPRAZOLE SOD 40 MG DELAYED RELEASE TAB PO SCH (09:07)
[2017-04-09] MEDS: ASPIRIN 81 MG CHEW TAB CHEW SCH (09:07)
[2017-04-09] MEDS: RIVAROXABAN 20 MG TAB PO SCH (09:12)
[2017-04-09] MEDS ORDERED: FLUD.1 PO (10:39)
--- NOTE | 2017-04-09 10:39 | HHI.PR ---
Subjective Remarks Follow up for syncope, orthostatic hypotension. Patient complains of some mild dizziness, lightheadedness when he gets up. No fever, chills. There was some concern about tolerability of fludrocortisone. However, patient took it later in the morning and I checked on patient in the afternoon again. He appears to be doing well. Objective Vitals Vital Signs Date Time Temp Pulse Resp B/P Pulse Ox O2 Delivery O2 Flow Rate FiO2 04/09/17 08:00 97.6 84 16 114/58 92 04/09/17 04:00 97.8 91 20 122/68 93 04/09/17 00:00 97.7 86 20 124/70 95 04/08/17 20:00 98.3 78 20 116/67 94 118/67 93/61 04/08/17 17:16 97.9 81 18 120/76 100 04/08/17 12:47 97.5 84 18 122/72 98 I/O 04/08/17 04/08/17 04/08/17 04/09/17 04/09/17 04/09/17 07:00 15:00 23:00 07:00 15:00 23:00 Intake Total 288 ml Balance 288 ml Intake Oral 288 ml # Voids 1 5 1 Result Diagram: 04/08/17 0750 04/08/17 0750 Imaging Last Impressions Hip and Pelvis X-Ray 04/07/17 0000 Signed Impressions: Service Date/Time: Friday, April 07, 2017 11:53 - CONCLUSION: No acute abnormality is identified. There is an old healed right pubic bone fracture. Guerrero Alva MD Hip X-Ray 04/07/17 0000 Signed Impressions: Service Date/Time: Friday, April 07, 2017 11:53 - CONCLUSION: No acute right hip joint abnormality is identified. There is mild to moderate osteoarthritis at the hip joint. Guerrero Alva MD Renal Ultrasound 04/06/17 0000 Signed Impressions: Service Date/Time: Wednesday, April 05, 2017 18:12 - CONCLUSION: Normal sonographic appearance to the kidneys. Db Ramsay MD Chest X-Ray 04/06/17 0000 Signed Impressions: Service Date/Time: Thursday, April 06, 2017 23:30 - CONCLUSION: 1. Cardiomegaly and findings of congestive heart failure. This is new when compared with the prior exam. Ben Aden MD Abdomen/Pelvis CT 04/06/17 0000 Signed Impressions: Service Date/Time: Thursday, April 06, 2017 08:55 - CONCLUSION: 1. No acute finding is identified within the abdomen or pelvis to explain the clinical symptoms. 2. Nonacute findings include cholelithiasis and sigmoid diverticulosis. Guerrero Alva MD Head CT 04/04/17 1825 Signed Impressions: Service Date/Time: April 18:48 - CONCLUSION: 1. No acute findings in the brain. 2. Right maxillary sinus disease. Db Ramsay MD Objective Remarks GENERAL: AOX3, NAD. SKIN: Warm and dry. HEAD: Normocephalic. EYES: No scleral icterus. No injection or drainage. NECK: Supple, trachea midline. No JVD or lymphadenopathy. CARDIOVASCULAR: Regular rate and rhythm without murmurs, gallops, or rubs. RESPIRATORY: Breath sounds equal bilaterally. No accessory muscle use. GASTROINTESTINAL: Abdomen soft, non-tender, nondistended. MUSCULOSKELETAL: No cyanosis, or edema. BACK: Nontender without obvious deformity. No CVA tenderness. Procedures None. Date of Insertion: Apr 05, 2017 A/P Problem List: (1) Syncope ICD Code: R55 Status: Acute (2) Hyperkalemia ICD Code: E87.5 Status: Acute (3) MIRNA (acute kidney injury) ICD Code: N17.9 Status: Acute (4) Dehydration ICD Code: E86.0 Status: Acute (5) DM (diabetes mellitus) ICD Code: E11.9 Status: Chronic Assessment and Plan 56-year-old male with a PMH of HTN, COPD, h/o CVA, h/o PE on Xarelto, DM and Anxiety who [facility] - Syncope - Orthostatic Hypotension - Patient reports multiple episodes of orthostatic dizziness with near syncopal and syncopal episodes. - CT Head w/ no acute findings. Trop negative x2. Echo 10/31/16 w/ EF 50-55% . - Continue to hold antihypertensives. - Fludrocortisone would be better suited to address orthostatic hypotension - Will monitor for CHF, peripheral edema. - Continue Fludrocortisone 0.1mg Qday. May need to be titrated up. - Will request PT to see patient again today. I walked patient short distance as well. He tolerated it well without any assistance. Bilateral hip pain-likely secondary to his fall, increase Roxicodone, bilateral hip x-ray shows no acute findings. Seborrheic dermatitis -Continue steroid and antifungal ointment. Hyperkalemia: Resolved MIRNA: Resolved with IVF. Urinary Retention: post void bladder scan with >400cc urine. Cuellar placed 04/05. Check abdominal CT. Monitor renal function. Cuellar catheter removed, voiding well. UTI: UA with large leuks, WBCs. Urine culture grew group D enterococcus, 10-15, 000 cc infused, stop ceftriaxone. DM: Hold metformin for now. Continue home Levemir. Monitor Accu-Cheks. Sliding scale coverage if needed. Full code. Francois. Problem Qualifiers (1) Syncope: Qualified Code: R55 - Vasovagal syncope Omid Mora DO Apr 09, 2017 10:39
[2017-04-09] MEDS: OLANZapine 10 MG TAB PO SCH (21:21)
[2017-04-09] MEDS: ATORVASTATIN 20 MG TAB PO SCH (21:21)
[2017-04-10 00:30] VITALS: BP 147/62; PULSE 83; RESP 18; TEMP 97.5; O2SAT 94
[2017-04-10 05:00] VITALS: BP 113/66; PULSE 96; RESP 18; TEMP 98.1; O2SAT 94
[2017-04-10] MEDS: INSULIN ASPART SUPPLEMENTAL SCALE SQ SCH ×2 (06:21→11:53)
[2017-04-10 08:47] VITALS: BP 123/61; PULSE 83; RESP 18; TEMP 97.6; O2SAT 94
[2017-04-10] MEDS: ASPIRIN 81 MG CHEW TAB CHEW SCH (09:09)
[2017-04-10] MEDS: FLUDROCORTISONE ACETATE 0.1 MG TAB PO SCH (09:09)
[2017-04-10] MEDS: PREGABALIN 75 MG CAP PO SCH (09:10)
[2017-04-10] MEDS: RIVAROXABAN 20 MG TAB PO SCH (09:10)
[2017-04-10] MEDS: PANTOPRAZOLE SOD 40 MG DELAYED RELEASE TAB PO SCH (09:11)
[2017-04-10] MEDS: MAGNESIUM OXIDE 400 MG TAB PO SCH (09:11)
[2017-04-10 09:12] VITALS: PULSE 94
[2017-04-10] MEDS: TRIAMCINOLONE ACETONIDE 0.1% OINT 15 GM TUBE TOPICAL SCH (09:12)
[2017-04-10] MEDS: INSULIN DETEMIR 100 UNITS/ML VIAL SQ SCH (09:15)
[2017-04-10] MEDS: SODIUM CHLORIDE 0.9% FLUSH 10 ML FLUSH IV FLUSH SCH (09:15)
[2017-04-10] MEDS ORDERED: OXYC-395 PO (12:32)
--- NOTE | 2017-04-10 12:33 | HHI.DS ---
Discharge Summary Admission Date Apr 05, 2017 at 6:03 pm Discharge Date: Apr 10, 2017 Admitting Diagnosis MIRNA, HyperK (1) Syncope ICD Code: R55 Diagnosis: Principal (2) Hyperkalemia ICD Code: E87.5 (3) MIRNA (acute kidney injury) ICD Code: N17.9 Diagnosis: Principal (4) Dehydration ICD Code: E86.0 (5) DM (diabetes mellitus) ICD Code: E11.9 (6) Orthostatic hypotension ICD Code: I95.1 Diagnosis: Principal Procedures None. Brief History - From Admission This is a 56-year-old male with a PMH of HTN, COPD, h/o CVA, h/o PE on Xarelto, DM and Anxiety who [facility]. Per pt he's been feeling generalized weakness for 1-2 wks, reports few episodes of syncope in the last 1wk, last event 2 days ago w/ significant weakness, unable to get out of bed. [facility]. States he was started on treatment for what his PCP believes is Shingles. Denies fever, chills, cough or chest pain. On arrival, BP 113/75, HR 98, O2 sat 96% on RA, Afebrile. CBC essentially unremarkable. K+ 5.3. Creatinine 1.79, previously 0.94 on 02/13/17. Pulmonary negative. CPK 50. CT Head with no acute findings. CXR negative. CBC/BMP: 04/08/17 0750 04/08/17 0750 Significant Findings Laboratory Tests Test 04/08/17 07:50 Red Blood Count 4.14 MIL/MM3 (4.50-5.90) Hemoglobin 12.7 GM/DL (13.0-17.0) Hematocrit 37.9 % (39.0-51.0) Platelet Count 133 TH/MM3 (150-450) Monocytes (%) (Auto) 12.9 % (0.0-8.0) Eosinophils (%) (Auto) 4.5 % (0.0-4.0) Blood Urea Nitrogen 27 MG/DL (7-18) Estimat Glomerular Filtration 66 ML/MIN (>89) Rate Random Glucose 160 MG/DL (74-106) Calcium Level 8.2 MG/DL (8.5-10.1) Imaging Last Impressions Hip and Pelvis X-Ray 04/07/17 0000 Signed Impressions: Service Date/Time: Friday, April 07, 2017 11:53 - CONCLUSION: No acute abnormality is identified. There is an old healed right pubic bone fracture. Guerrero Alva MD Hip X-Ray 04/07/17 0000 Signed Impressions: Service Date/Time: Friday, April 07, 2017 11:53 - CONCLUSION: No acute right hip joint abnormality is identified. There is mild to moderate osteoarthritis at the hip joint. Guerrero Alva MD Renal Ultrasound 04/06/17 0000 Signed Impressions: Service Date/Time: Wednesday, April 05, 2017 18:12 - CONCLUSION: Normal sonographic appearance to the kidneys. Db Ramsay MD Chest X-Ray 04/06/17 0000 Signed Impressions: Service Date/Time: Thursday, April 06, 2017 23:30 - CONCLUSION: 1. Cardiomegaly and findings of congestive heart failure. This is new when compared with the prior exam. Ben Aden MD Abdomen/Pelvis CT 04/06/17 0000 Signed Impressions: Service Date/Time: Thursday, April 06, 2017 08:55 - CONCLUSION: 1. No acute finding is identified within the abdomen or pelvis to explain the clinical symptoms. 2. Nonacute findings include cholelithiasis and sigmoid diverticulosis. Guerrero Alva MD Head CT 04/04/17 1825 Signed Impressions: Service Date/Time: April 18:48 - CONCLUSION: 1. No acute findings in the brain. 2. Right maxillary sinus disease. Db Ramsay MD PE at Discharge GENERAL: AOX3, NAD. SKIN: Warm and dry. HEAD: Normocephalic. EYES: No scleral icterus. No injection or drainage. NECK: Supple, trachea midline. No JVD or lymphadenopathy. CARDIOVASCULAR: Regular rate and rhythm without murmurs, gallops, or rubs. RESPIRATORY: Breath sounds equal bilaterally. No accessory muscle use. GASTROINTESTINAL: Abdomen soft, non-tender, nondistended. MUSCULOSKELETAL: No cyanosis, or edema. BACK: Nontender without obvious deformity. No CVA tenderness. Pt update on day of discharge Patient is doing better today. Tolerating fludrocortisone well. Tolerating diet well. No fever, chills. Hospital Course 56-year-old male with a PMH of HTN, COPD, h/o CVA, h/o PE on Xarelto, DM and Anxiety who [facility] - Syncope - Orthostatic Hypotension - Patient reports multiple episodes of orthostatic dizziness with near syncopal and syncopal episodes. - CT Head w/ no acute findings. Trop negative x2. Echo 10/31/16 w/ EF 50-55% . - Continue to hold antihypertensives. - Fludrocortisone would be better suited to address orthostatic hypotension - Will monitor for CHF, peripheral edema. - Continue Fludrocortisone 0.1mg Qday. May need to be titrated up. Bilateral hip pain-likely secondary to his fall, increase Roxicodone, bilateral hip x-ray shows no acute findings. Hyperkalemia: Resolved MIRNA: Resolved with IVF. Urinary Retention: post void bladder scan with >400cc urine. Cuellar placed 04/05. Check abdominal CT. Monitor renal function. Cuellar catheter removed, voiding well. UTI: UA with large leuks, WBCs. Urine culture grew group D enterococcus, 10-15, 000 cc/CFU, stop ceftriaxone. DM: Continue Metformin on discharge. Full code. Xarelto. Pt Condition on Discharge: Good Discharge Disposition: Disch w/ Home Health Serv Discharge Time: > 30 minutes Discharge Instructions DIET: Follow Instructions for: Diabetic Diet Activities you can perform: Regular-No Restrictions Follow up Referrals: PCP Follow-up - 1 Week New Medications: Rollator Ultra-Light (Rollator Ultra-Light) 1 Mis Mis 1 EA .ROUTE DIRECTED #1 EA Fludrocortisone (Fludrocortisone) 0.1 Mg Tab 0.1 MG PO DAILY Blood Pressure Management #30 Ref 2 TAB Oxycodone (Oxycodone) 10 Mg Tab 10 MG PO Q6H PRN PAIN SCALE 6 TO 10 #20 TAB Continued Medications: Aspirin (Aspirin) 81 Mg Chew 81 MG CHEW DAILY Ref 0 TAB Atorvastatin (Lipitor) 20 Mg Tab 20 MG PO HS Cholesterol Management #30 Ref 0 TAB Cyanocobalamin (B-12) 2,000 Mcg Tab 2000 MCG PO DAILY Nutritional Supplement #1 Ref 0 BOTTLE Dextrose (Glucose) 15 Gm/60 Ml Liquid 15 GM PO PRN Per Hypoglycemic Protocol Empagliflozin (Jardiance) 10 Mg Tab 10 MG PO AC BREAKFAST Blood Sugar Management #30 Ref 0 TAB Ferrous Sulfate (Ferrous Sulfate) 325 Mg (65 Mg Iron) Tablet 325 MG PO DAILY Nutritional Supplement #30 Ref 0 TAB Insulin Glargine Inj (Lantus Inj) 1,000 Unit/10 Ml Vial 12 UNITS SQ DAILY Blood Sugar Management Ref 0 VIAL Ipratropium-Albuterol Neb (Duoneb) 0.5-2.5 Mg/3 Ml Neb 1 NEBULE INH Q8HR NEB PRN SOB/WHEEZING #90 Ref 0 NEBULE Metformin (Metformin) 1,000 Mg Tab 1000 MG PO BIDPC With meals Blood Sugar Management #60 Ref 0 TAB Olanzapine (Olanzapine) 10 Mg Tab 10 MG PO HS #30 Ref 0 TAB Pantoprazole (Protonix) 40 Mg Tab 40 MG PO DAILY Reflux #30 Ref 0 TAB Pregabalin (Lyrica) 75 Mg Cap 75 MG PO BID #60 Ref 0 CAP Rivaroxaban (Xarelto) 20 Mg Tab 20 MG PO DAILY PE Days 30 TAB Discontinued Medications: Alfuzosin HCl (Alfuzosin HCl ER) 10 Mg Tab 10 MG PO DAILY BPH #30 TAB Losartan (Losartan) 50 Mg Tab 50 MG PO DAILY Blood Pressure Management #30 Ref 0 TAB Magnesium Oxide (Magnesium Oxide) 400 Mg Tab 400 MG PO BID Nutritional Supplement Ref 0 TAB Metoprolol Tartrate (Metoprolol Tartrate) 25 Mg Tab 25 MG PO BID #60 Ref 0 TAB Trazodone (Trazodone) 50 Mg Tab 50 MG PO HS Control Depression #30 Ref 0 TAB Omid Mora DO Apr 10, 2017 12:32
[2017-04-10 12:41] VITALS: BP_SYST 120; BP_SYST 127; BP_DIAS 64; BP_DIAS 78; PULSE 97; RESP 18; TEMP 97.3; O2SAT 93
[2017-04-10 12:55] VITALS: RESP 18
[2017-04-10] MEDS ORDERED: FLUD.1 PO (13:25)
--- NOTE | 2017-04-11 10:05 | PQ ---
Physician Query Response Document PATIENT: TREMAYNE QUESADA : 1960 ADMIT DATE: 04/05/2017 6:03 PM DISCH DATE: 04/10/2017 2:50 PM RESPONDING PROVIDER #: jeramie QUERY TEXT: Acuity Specificity PULMONARY EDEMA is documented in the Medical Record. Please specify the acuity of this condition wit h terms such as: -- Acute -- Chronic -- Acute and chronic -- Acute on chronic -- Other (please specify in the medical record) Your prompt response is appreciated, please do not hesitate to contact the CDI/Coding Hotline with an y questions, comments and/or concerns you may have at [phone]. [phone]. The patient's Clinical Indicators include: FLASH PULMONARY EDEMA-LIKELY SECONDARY TO VOLUME OVERLOAD, STOP IVF, WILL GIVE ONE MORE DOSE LASIX. C HEST X-RAY SHOLED PULMONARY EDEMA.-PROG NOTE 8/ HALICAT DUE TO SHORTNESS OF BREATH, DESAT TO 70%, DIAPHORESIS AND RESTLESSNESS DURING THIS ACUTE EPIS ODE.-PROG NOTE 04/07 Query created by: Milagros Trujillo on 04/11/2017 9:00 AM RESPONSE TEXT: Acute pulmonary edema, clinically improved after Lasix. Electronically signed by: Johann Mora DO 04/11/2017 10:01 AM
== END 2017-04-10 14:50 | disposition home health service (06) | DRG 682 ==
LOC: NEPC 17:00 → NEDA 20:37 → NEPGCP 22:19 → OBSVTOIN 04-05 18:03 → N05A 04-06 18:51
PROVIDERS: ADMIT Hospitalist; ATTEND Hospitalist
PROC: 0T9B70Z Drainage of Bladder with Drainage Device, Via Natural or Artificial Opening (ICD-10-PCS; principal; 2017-04-05)
DX: N17.9 Acute kidney failure, unspecified (principal); J81.0 Acute pulmonary edema; N39.0 Urinary tract infection, site not specified; E11.9 Type 2 diabetes mellitus without complications; I10 Essential (primary) hypertension; B95.2 Enterococcus as the cause of diseases classified elsewhere; E87.5 Hyperkalemia; E87.70 Fluid overload, unspecified; E86.0 Dehydration; I95.1 Orthostatic hypotension; J44.9 Chronic obstructive pulmonary disease, unspecified; R33.9 Retention of urine, unspecified; L21.9 Seborrheic dermatitis, unspecified; M25.551 Pain in right hip; M25.552 Pain in left hip; K21.9 Gastro-esophageal reflux disease without esophagitis; H91.90 Unspecified hearing loss, unspecified ear; F41.9 Anxiety disorder, unspecified; Z79.84 Long term (current) use of oral hypoglycemic drugs; Z86.711 Personal history of pulmonary embolism; Z86.73 Personal history of transient ischemic attack (TIA), and cerebral infarction without residual deficits; Z87.891 Personal history of nicotine dependence
CPT/HCPCS: 36600; 70450; 71010; 73502; 74176; 76775; 76937; 80048; 80053; 81001; 82550; 82805; 82948; 83605; 84484; 85025; 85730; 87040; 87077; 87086; 87186; 93005; 96361; 96365; G0378; G8987-GP; G8988-GP; J0610; J0696; J1815; J1940; J7030; J7050

== ENCOUNTER 2017-04-13 01:11 | Inpatient (IN) | payer OTHER ==
[~2017-04-13] VITALS: Ht 172.7 cm; Wt 90.6 kg
[2017-04-13] VITALS (19 sets, daily range): BP systolic 97–169; BP diastolic 61–94; PULSE 67–120; RESP 16–24; TEMP 97.6–98.7; O2SAT 91–100
[~2017-04-13 01:11] MED LIST changes: +B-122000 PO; +DEXT15LI10 PO; +EMPA1TAB PO; +FERR325T8 PO; +FLUD.1 PO; -HYDR-3516 PO; +IPRASOL INH; -LEVO750T3 PO; -LOSA50TA PO; -MAGN400T2 PO; -METO25TA3 PO; +MISCMIS81; +OXYC-395 PO; -PERC7.5T13 PO
[2017-04-13] MEDS ORDERED: SODIUM CHLORIDE 0.9% FLUSH 10 ML FLUSH IVF PRN (01:15)
[2017-04-13 01:26] LABS: BLOOD GAS VENOUS BASE EXCESS -0.3 mmol/L (-2-2); BLOOD GAS VENOUS HCO3 26 mmol/L (22-26); BLOOD GAS VENOUS O2 CONTENT 10.2 Vol % (9.0-17.0); BLOOD GAS VENOUS O2 HGB SAT 59 % (70-76); BLOOD GAS VENOUS PCO2 63 mmHg (44-48); BLOOD GAS VENOUS PO2 37 mmHg (35-40); BLOOD GAS VENOUS pH 7.24 (7.360-7.400); TEMP CORR TO 98.6
[2017-04-13 01:27] LABS: CRITICAL VALUE YES; LITER FLOW 15 L/M; OXYGEN DEVICE NRB
[2017-04-13 01:28] LABS: FIO2 100 %; STAT YES
--- NOTE | 2017-04-13 01:34 | PD ---
HPI Chief Complaint: Respiratory Distress Time Seen by Provider: 01:14 Travel History International Travel<30 days: No Contact w/Intl Traveler<30days: No Traveled to known affect area: No History of Present Illness HPI Patient is a 56-year-old male presents emergency department for evaluation of hypoxia and chest discomfort. The patient states that he was just released the hospital after syncopal event. He states he never had CHF but rather has a history of COPD. EMS stated that his initial saturation field was in the 60s, is placed on nonrebreather and responded quite well. Patient on arrival states he is feeling much better with the oxygen. He states his chest discomfort is all but resolved. States he has a history of bilateral PEs is supposed to be on Xarelto but hasn't had a dose in a few days. He denies any fevers denies any cough or congestion. PFSH Past Medical History Hx Anticoagulant Therapy: Yes Asthma: No Blood Disorders: No Anxiety: Yes Depression: No Heart Rhythm Problems: No Cancer: No Cardiovascular Problems: Yes High Cholesterol: Yes Chemotherapy: No Chest Pain: Yes Congestive Heart Failure: No COPD: Yes Cerebrovascular Accident: Yes (2010) Diabetes: Yes Patient Takes Glucophage: No Diminished Hearing: Yes ([facility], hearing aids at home) Endocrine: Yes Gastrointestinal Disorders: Yes GERD: Yes Genitourinary: No Hypertension: Yes Immune Disorder: No Implanted Vascular Access Dvce: No Musculoskeletal: No Neurologic: Yes Psychiatric: Yes Reproductive: No Respiratory: Yes Pneumonia: Yes Radiation Therapy: No Shingles: Yes Sleep Apnea: No Thyroid Disease: No Past Surgical History Abdominal Surgery: No Cardiac Surgery: No Ear Surgery: No Endocrine Surgery: No Eye Surgery: Yes Genitourinary Surgery: No Gynecologic Surgery: No Neurologic Surgery: No Oral Surgery: Yes Thoracic Surgery: No Other Surgery: Yes (MULTIPLE ORTHOPEDIC SX'S) Social History Alcohol Use: No (QUIT 05/2016) Tobacco Use: No Substance Use: No Allergies-Medications (Allergen,Severity, Reaction): Coded Allergies: Morphine (Verified Allergy, Mild, 04/13/17) Reported Meds & Prescriptions Reported Meds & Active Scripts Active Fludrocortisone (Fludrocortisone Acetate) 0.1 Mg Tab 0.1 Mg PO DAILY Oxycodone (Oxycodone HCl) 10 Mg Tab 10 Mg PO Q6H PRN Rollator Ultra-Light (Device) 1 Mis Mis 1 Ea .ROUTE DIRECTED Oxygen tank (Oxygen) 1 Ea Tank 2 Liter CRISTIAN.CANULA CONTINUOUS Oxygen Concentrator Portable Gaseous 2 L/min via Nasal Cannula Continuous For 99 months Xarelto (Rivaroxaban) 20 Mg Tab 20 Mg PO DAILY 30 Days Reported Ferrous Sulfate 325 Mg (65 Mg Iron) Tablet 325 Mg PO DAILY Jardiance (Empagliflozin) 10 Mg Tab 10 Mg PO AC BREAKFAST Glucose (Dextrose) 15 Gm/60 Ml Liquid 15 Gm PO PRN B-12 (Cyanocobalamin) 2,000 Mcg Tab 2,000 Mcg PO DAILY Duoneb (Ipratropium-Albuterol Neb) 0.5-2.5 Mg/3 Ml Neb 1 Nebule INH Q8HR NEB PRN Lyrica (Pregabalin) 75 Mg Cap 75 Mg PO BID Protonix (Pantoprazole Sodium) 40 Mg Tab 40 Mg PO DAILY Olanzapine 10 Mg Tab 10 Mg PO HS Lipitor (Atorvastatin Calcium) 20 Mg Tab 20 Mg PO HS Aspirin 81 Mg Chew 81 Mg CHEW DAILY Lantus Inj (Insulin Glargine) 1,000 Unit/10 Ml Vial 12 Units SQ DAILY Metformin (Metformin HCl) 1,000 Mg Tab 1,000 Mg PO BIDPC With meals Review of Systems Except as stated in HPI: all other systems reviewed are Neg Physical Exam Narrative GENERAL: Well-developed well-nourished no obvious distress SKIN: Focused skin assessment warm/dry. HEAD: Atraumatic. Normocephalic. EYES: Pupils equal and round. No scleral icterus. No injection or drainage. ENT: No nasal bleeding or discharge. Mucous membranes pink and moist. NECK: Trachea midline. No JVD. CARDIOVASCULAR: Regular rate and rhythm. No murmur appreciated. RESPIRATORY: No accessory muscle use. Bibasilar rales. Breath sounds equal bilaterally. GASTROINTESTINAL: Abdomen soft, non-tender, nondistended. Hepatic and splenic margins not palpable. MUSCULOSKELETAL: No obvious deformities. No clubbing. No cyanosis. 2+ pitting edema to bilateral lower extremities from mid tibia distally. NEUROLOGICAL: Awake and alert. No obvious cranial nerve deficits. Motor grossly within normal limits. Normal speech. PSYCHIATRIC: Appropriate mood and affect; insight and judgment normal. Data Data Last Documented VS Vital Signs Date Time Temp Pulse Resp B/P Pulse Ox O2 Delivery O2 Flow Rate FiO2 04/13/17 03:33 107 22 169/94 91 Nasal Cannula 6 8/12/17 01:22 98.7 Orders Electrocardiogram (04/13/17 01:14) Complete Blood Count With Diff (04/13/17 01:14) Comprehensive Metabolic Panel (04/13/17 01:14) Chest, Single Ap (04/13/17 01:14) Ecg Monitoring (04/13/17 01:14) Iv Access Insert/Monitor (04/13/17 01:14) Oximetry (04/13/17 01:14) Oxygen Administration (04/13/17 01:14) Sodium Chloride 0.9% Flush (Ns Flush) (04/13/17 01:15) B-Type Natriuretic Peptide (04/13/17 01:14) Troponin I (04/13/17 01:14) Blood Gas Venous (Vbg) (04/13/17 01:08) Furosemide Inj (Lasix Inj) (04/13/17 02:15) Heparin Infusion JESSICA.Q1H (04/13/17 02:50) Heparin Inj (Heparin Inj) (04/13/17 03:00) Heparin Inj (Heparin Inj) (04/13/17 09:00) Heparin Inj (Heparin Inj) (04/13/17 09:00) Heparin-D5w Inj (Heparin-D5w Inj) (04/13/17 03:00) Cbc No Diff, Includes Plts (04/16/17 06:00) Act Partial Throm Time (Ptt) (04/13/17 09:50) Occult Blood (Hemoccult) Stool (04/13/17 02:50) Aspirin Chew (Aspirin Chew) (04/13/17 03:00) Ct Pulmonary Angiogram (04/13/17 ) Iohexol 350 Inj (Omnipaque 350 Inj) (04/13/17 03:15) Ckmb (Isoenzyme) Profile (04/13/17 03:20) Admit Order (Ed Use Only) (04/13/17 ) CKMB (04/13/17 01:30) CKMB% (04/13/17 01:30) Labs Laboratory Tests Test 04/13/17 04/13/17 01:08 01:30 Blood Gas Puncture Site Blood Gas Patient Temperature 98.6 Venous Blood pH 7.24 Venous Blood Partial Pressure 63 mmHg CO2 Venous Blood Partial Pressure 37 mmHg O2 Venous Blood HCO3 26 mmol/L Venous Blood Oxygen Saturation 59 % Venous Blood Oxygen Content 10.2 Vol % Venous Blood Base Excess -0.3 mmol/L Oxygen Delivery Device NRB Blood Gas Liter Flow 15 L/M Blood Gas Inspired Oxygen 100 % White Blood Count 8.4 TH/MM3 Red Blood Count 3.93 MIL/MM3 Hemoglobin 12.0 GM/DL Hematocrit 35.9 % Mean Corpuscular Volume 91.4 FL Mean Corpuscular Hemoglobin 30.5 PG Mean Corpuscular Hemoglobin 33.4 % Concent Red Cell Distribution Width 13.7 % Platelet Count 227 TH/MM3 Mean Platelet Volume 9.2 FL Neutrophils (%) (Auto) 76.8 % Lymphocytes (%) (Auto) 9.7 % Monocytes (%) (Auto) 11.2 % Eosinophils (%) (Auto) 0.5 % Basophils (%) (Auto) 1.8 % Neutrophils # (Auto) 6.5 TH/MM3 Lymphocytes # (Auto) 0.8 TH/MM3 Monocytes # (Auto) 0.9 TH/MM3 Eosinophils # (Auto) 0.0 TH/MM3 Basophils # (Auto) 0.2 TH/MM3 CBC Comment DIFF FINAL Differential Comment Sodium Level 139 MEQ/L Potassium Level 4.7 MEQ/L Chloride Level 103 MEQ/L Carbon Dioxide Level 28.1 MEQ/L Anion Gap 8 MEQ/L Blood Urea Nitrogen 26 MG/DL Creatinine 1.14 MG/DL Estimat Glomerular Filtration 66 ML/MIN Rate Random Glucose 248 MG/DL Calcium Level 8.7 MG/DL Total Bilirubin 0.6 MG/DL Aspartate Amino Transf 20 U/L (AST/SGOT) Alanine Aminotransferase 15 U/L (ALT/SGPT) Alkaline Phosphatase 88 U/L Total Creatine Kinase 157 U/L Creatine Kinase MB 10.0 NG/ML Troponin I 2.58 NG/ML B-Type Natriuretic Peptide 662 PG/ML Total Protein 7.2 GM/DL Albumin 3.2 GM/DL [facility] Medical Decision Making Medical Screen Exam Complete: Yes Emergency Medical Condition: Yes Interpretation(s) EKG shows sinus tachycardia without any ST segment changes. Nonischemic EKG. Differential Diagnosis ACS, CT, CHF, PE. Narrative Course Patient roomed in emergency department, chest x-ray shows patchy infiltrates consistent with pulmonary edema. Has some pedal edema as well. Troponin elevated 2.9, patient was heparinized. PE is on the differential and patient was CAT scan and negative. BMP is somewhat elevated. Patient was weaned down to a nasal cannula his request. He states he gets claustrophobic with mask. Patient desaturates to 88 on nasal cannula but one instructed to breathe through his nose his saturations come up. His mental status seems tolerates desaturation well. Actually appears fairly comfortable. He is not on oxygen at home. Patient was discussed with Dr. Ospina for admission. Critical Care Narrative Aggregate critical care time was 31 minutes. Time to perform other separately billable procedures was not included in the critical care time. My time did not include minutes spent treating any other patients simultaneously or on activities that did not directly contribute to the patient's treatment. The services I provided to this patient were to treat and/or prevent clinically significant deterioration that could result in: , disability, organ failure I provided critical care services requiring my management, as noted below: Chart data review, documentation time, medication orders and management, vital sign assessments/reviewing monitor data, ordering and reviewing lab tests, ordering and interpreting/reviewing x-rays and diagnostic studies, care of the patient and discussion of the patient with the admitting physicians. Diagnosis Primary Impression: Acute respiratory failure with hypoxia Additional Impressions: Pulmonary edema NSTEMI (non-ST elevated myocardial infarction) Admitting Information Admitting Physician Requests: Admit Condition: Stable Benny Mahoney MD Apr 13, 2017 01:34
--- NOTE | 2017-04-13 02:05 | RADRPT ---
EXAM DATE/TIME: 04/13/2017 01:24 [facility] COMPARISON: No previous studies available for comparison. INDICATIONS : Shortness of breath. MEDICAL HISTORY : Gastroesophageal reflux disease. Chronic obstructive pulmonary disease. Hypertension. Diabetes Sh ingles Hypercholesterolemia SURGICAL HISTORY : ORIF left clavicle ENCOUNTER: Initial ACUITY: 1 day PAIN SCORE: 0/10 LOCATION: Bilateral chest FINDINGS: A single view of the chest demonstrates bibasilar infiltrate. Minimal disease left lung base. Heart n ormal in size.. The cardiomediastinal contours are unremarkable. Osseous structures are intact. Susannah te and screws left clavicle. CONCLUSION: Bibasilar patchy infiltrates greater right lower lobe. Holden Lin MD on April 13, 2017 at 2:02 Board Certified Radiologist. This report was verified electronically.
[2017-04-13 02:14] LABS: AUTOMATED NEUTROPHIL # 6.5 TH/MM3 (1.8-7.7); BASOPHIL # 0.2 TH/MM3 (0-0.2); BASOPHIL % 1.8 % (0.0-2.0); EOSINOPHIL % 0.5 % (0.0-4.0); HEMATOCRIT 35.9 % (39.0-51.0); HEMO FLAGS DIFF FINAL; LYMPH % 9.7 % (9.0-44.0); LYMPHOCYTE # 0.8 TH/MM3 (1.0-4.8); MEAN CELL VOLUME 91.4 FL (80.0-100.0); MEAN CORPUSCULAR HEMOGLOBIN 30.5 PG (27.0-34.0); MEAN CORPUSCULAR HGB CONC 33.4 % (32.0-36.0); MONO % 11.2 % (0.0-8.0); NEUT % 76.8 % (16.0-70.0); PLATELET COUNT 227 TH/MM3 (150-450); RED BLOOD COUNT 3.93 MIL/MM3 (4.50-5.90); RED CELL DISTRIBUTION WIDTH 13.7 % (11.6-17.2); WHITE BLOOD COUNT 8.4 TH/MM3 (4.0-11.0)
[2017-04-13 02:15] LABS: ALT (GPT) 15 U/L (12-78); ANION GAP 8 MEQ/L (5-15); AST (GOT) 20 U/L (15-37); BICARBONATE 28.1 MEQ/L (21.0-32.0); BLOOD UREA NITROGEN 26 MG/DL (7-18); CHLORIDE 103 MEQ/L (98-107); GLOMERULAR FILTRATION RATE 66 ML/MIN (>89); POTASSIUM 4.7 MEQ/L (3.5-5.1); SODIUM (NA) 139 MEQ/L (136-145)
[2017-04-13] MEDS ORDERED: FUROSEMIDE 100 MG/10 ML VIAL IV PUSH ONE (02:15)
[2017-04-13 02:19] LABS: ALKALINE PHOSPHATASE 88 U/L (45-117); TOTAL BILIRUBIN ADULT 0.6 MG/DL (0.2-1.0)
[2017-04-13] MEDS ORDERED: HEPARIN-D5W 25,000 U/250 ML 250 ML IV SCH (03:00)
[2017-04-13] MEDS ORDERED: HEPARIN SODIUM - IV 10,000 UNITS/10 ML VIAL IV ONE (03:00)
[2017-04-13] MEDS ORDERED: ASPIRIN 81 MG CHEW TAB CHEW ONE (03:00)
[2017-04-13] MEDS ORDERED: IOHEXOL 350 MG/ML 10 ML VIAL (for RAD DIAG) IV ONE (03:15)
[2017-04-13] MEDS ORDERED: METFORMIN HOLD POST IV CONTRAST SCH (03:15)
[2017-04-13] MEDS ORDERED: POTASSIUM CHLOR 20 MEQ PREMIX 100 ML IV PRN ×2 (03:45)
[2017-04-13] MEDS ORDERED: MAGNESIUM SULFATE INJ 2 GM in SODIUM CHLORIDE 0.9% INJ 96 ML IV PRN (03:45)
[2017-04-13] MEDS ORDERED: POTASSIUM PHOSPHATE MONOBASIC 500 MG TAB PO/TUBE PRN (03:45)
[2017-04-13] MEDS ORDERED: CHLORHEXIDINE GLUCONATE 2 % 1 PACK (2 CLOTHS) TOP PRN (03:45)
[2017-04-13] MEDS ORDERED: MAGNESIUM OXIDE 400 MG TAB PO PRN (03:45)
[2017-04-13] MEDS ORDERED: MISCELLANEOUS NURSING INFORMATION XX SCH (03:45)
[2017-04-13] MEDS ORDERED: MAGNESIUM SULFATE INJ 4 GM in SODIUM CHLORIDE 0.9% INJ 92 ML IV PRN (03:45)
[2017-04-13] MEDS ORDERED: DEXTROSE 50% IN WATER 50 ML VIAL(D50) IV PUSH PRN (03:45)
[2017-04-13] MEDS ORDERED: ONDANSETRON HCL 4 MG/2 ML VIAL IV PRN (03:45)
[2017-04-13] MEDS ORDERED: RESP: ALBUTEROL 2.5 MG/IPRATROPIUM 0.5 MG NEB (PRN) INH (03:45)
[2017-04-13] MEDS ORDERED: POTASSIUM CHLOR 40 MEQ PREMIX 100 ML IV PRN ×2 (03:45)
[2017-04-13] MEDS ORDERED: SODIUM PHOSPHATE INJ 30 MMOL in SODIUM CHLOR 0.9% 250 ML INJ 240 ML IV PRN (03:45)
[2017-04-13] MEDS ORDERED: POTASSIUM PHOSPHATE INJ 30 MMOL in SODIUM CHLOR 0.9% 250 ML INJ 250 ML IV PRN (03:45)
[2017-04-13] MEDS ORDERED: POTASSIUM PHOSPHATE MONOBASIC 500 MG TAB PO PRN (03:45)
[2017-04-13] MEDS: CHLORHEXIDINE GLUCONATE 2 % 1 PACK (2 CLOTHS) TOP SCH (04:00)
[2017-04-13] MEDS ORDERED: METOPROLOL TARTRATE 5 MG/5 ML VIAL IV PUSH ONE ×2 (04:15→05:15)
[2017-04-13] MEDS: RESP: ALBUTEROL 2.5 MG/IPRATROPIUM 0.5 MG NEB (SCH) INH ×4 (04:18→21:56)
[2017-04-13] MEDS: INSULIN NovoLIN REGULAR SUPPLEMENTAL SCALE SQ SCH ×3 (04:18→19:37)
--- NOTE | 2017-04-13 04:18 | HHI.HP ---
[facility] Service Critical Care Medicine Primary Care Physician Fabricio [facility] Admission Diagnosis Hypoxic Repiratory failure. Diagnosis: Chief Complaint: shortness of breath Travel History International Travel<30 Days: No Contact w/Intl Traveler <30 Da: No Traveled to Known Affected Are: No History of Present Illness This is a 56yM with history of prior stroke and prior PE who presents with 1 day history of shortness of breath which has been worsening since earlier in the day. He endorses dyspnea on exertion. He originally denied chest pain on admission, but over the last hour or two has also developed substernal chest pain which is non-radiating. he states he has never had a heart attack before. Remainder of the ROS is negative unless otherwise stated. He had a prior PE back in September, but he states he stopped taking his anticoagulation a few weeks ago. In the ER he was found to have a room air saturation of 60%. He was placed on a NRB. He was given 80mg lasix iv x 1. His BNP is 662, trop 2.58. He refused BiPAP and then his NRB. on my evaluation he is on 6L o2 by NC with spo2 92%. He has additionally refused little catheter placement. Review of Systems Constitutional: COMPLAINS OF: Diaphoretic episodes, DENIES: Fever, Chills Respiratory: COMPLAINS OF: Shortness of breath, DENIES: Wheezing, Hemoptysis, Sputum production Cardiovascular: COMPLAINS OF: Chest pain, Dyspnea on Exertion, DENIES: Palpitations, Syncope, PND, Orthopnea Gastrointestinal: DENIES: Abdominal pain, Bloody stools, Constipation, Diarrhea , Nausea, Vomiting Neurologic: DENIES: Headache Psychiatric: COMPLAINS OF: Anxiety Past Family Social History Allergies: Coded Allergies: Morphine (Verified Allergy, Mild, 04/13/17) Past Medical History Anxiety Hypercholesterolemia COPD CVA in 2011 Diabetes Past Surgical History Eye surgery Reported Medications Fludrocortisone (Fludrocortisone Acetate) 0.1 Mg Tab 0.1 Mg PO DAILY Oxycodone (Oxycodone HCl) 10 Mg Tab 10 Mg PO Q6H PRN Rollator Ultra-Light (Device) 1 Mis Mis 1 Ea .ROUTE DIRECTED Oxygen tank (Oxygen) 1 Ea Tank 2 Liter CRISTIAN.CANULA CONTINUOUS Oxygen Concentrator Portable Gaseous 2 L/min via Nasal Cannula Continuous For 99 months Xarelto (Rivaroxaban) 20 Mg Tab 20 Mg PO DAILY 30 Days Ferrous Sulfate 325 Mg (65 Mg Iron) Tablet 325 Mg PO DAILY Jardiance (Empagliflozin) 10 Mg Tab 10 Mg PO AC BREAKFAST Glucose (Dextrose) 15 Gm/60 Ml Liquid 15 Gm PO PRN B-12 (Cyanocobalamin) 2,000 Mcg Tab 2,000 Mcg PO DAILY Duoneb (Ipratropium-Albuterol Neb) 0.5-2.5 Mg/3 Ml Neb 1 Nebule INH Q8HR NEB PRN Lyrica (Pregabalin) 75 Mg Cap 75 Mg PO BID Protonix (Pantoprazole Sodium) 40 Mg Tab 40 Mg PO DAILY Olanzapine 10 Mg Tab 10 Mg PO HS Lipitor (Atorvastatin Calcium) 20 Mg Tab 20 Mg PO HS Aspirin 81 Mg Chew 81 Mg CHEW DAILY Lantus Inj (Insulin Glargine) 1,000 Unit/10 Ml Vial 12 Units SQ DAILY Metformin (Metformin HCl) 1,000 Mg Tab 1,000 Mg PO BIDPC With meals Active Ordered Medications See MAR Family History reviewed and found to be noncontributory to his acute illness Social History prior etoh (quit 05/2016), no tob, no doa. Physical Exam Vital Signs Vital Signs Date Time Temp Pulse Resp B/P Pulse Ox O2 Delivery O2 Flow Rate FiO2 04/13/17 03:33 107 22 169/94 91 Nasal Cannula 6 04/13/17 01:25 95 Non-Rebreather 8 04/13/17 01:25 95 Non-Rebreather 04/13/17 01:22 98.7 120 24 138/90 95 Physical Exam GENERAL: Middle-aged male, lying in bed, in moderate distress due to dyspnea and chest pain HEENT: Normocephalic. Atraumatic. Pupils equal, round, reactive, conjugate. Mucous membranes are moist NECK: Trachea is midline. There is no JVD. CHEST: Tachypneic, mildly labored, SPO2 92% on 6 L nasal cannula bibasilar crackles CARDIOVASCULAR: Tachycardic rate, regular rhythm. Sinus by telemetry ABDOMEN: Soft, nontender, nondistended. No guarding. MUSCULOSKELETAL: Pulses 2+. No peripheral edema. NEUROLOGICAL: RASS 0. GCS 15. No focal deficits. Laboratory Laboratory Tests Test 04/13/17 04/13/17 01:08 01:30 Blood Gas Puncture Site Blood Gas Patient Temperature 98.6 Venous Blood pH 7.24 Venous Blood Partial Pressure 63 CO2 Venous Blood Partial Pressure 37 O2 Venous Blood HCO3 26 Venous Blood Oxygen Saturation 59 Venous Blood Oxygen Content 10.2 Venous Blood Base Excess -0.3 Oxygen Delivery Device NRB Blood Gas Liter Flow 15 Blood Gas Inspired Oxygen 100 White Blood Count 8.4 Red Blood Count 3.93 Hemoglobin 12.0 Hematocrit 35.9 Mean Corpuscular Volume 91.4 Mean Corpuscular Hemoglobin 30.5 Mean Corpuscular Hemoglobin 33.4 Concent Red Cell Distribution Width 13.7 Platelet Count 227 Mean Platelet Volume 9.2 Neutrophils (%) (Auto) 76.8 Lymphocytes (%) (Auto) 9.7 Monocytes (%) (Auto) 11.2 Eosinophils (%) (Auto) 0.5 Basophils (%) (Auto) 1.8 Neutrophils # (Auto) 6.5 Lymphocytes # (Auto) 0.8 Monocytes # (Auto) 0.9 Eosinophils # (Auto) 0.0 Basophils # (Auto) 0.2 CBC Comment DIFF FINAL Differential Comment Sodium Level 139 Potassium Level 4.7 Chloride Level 103 Carbon Dioxide Level 28.1 Anion Gap 8 Blood Urea Nitrogen 26 Creatinine 1.14 Estimat Glomerular Filtration 66 Rate Random Glucose 248 Calcium Level 8.7 Total Bilirubin 0.6 Aspartate Amino Transf 20 (AST/SGOT) Alanine Aminotransferase 15 (ALT/SGPT) Alkaline Phosphatase 88 Troponin I 2.58 B-Type Natriuretic Peptide 662 Total Protein 7.2 Albumin 3.2 Result Diagram: 04/13/1712904/13/17129 Imaging Last Impressions Chest X-Ray 04/13/17113 Signed Impressions: Service Date/Time: Thursday, April 13, 2017 01:24 - CONCLUSION: Bibasilar patchy infiltrates greater right lower lobe. Holden Lin MD Assessment and Plan Assessment and Plan Assessment: 56yM with CHF exacerbation, unknown type, and NSTEMI. Unclear if this is ACS vs. type II demand ischemia NSTEMI, however his new substernal chest pain is concerning for possible ACS. I have ordered dilaudid (morphine allergy), lopressor, ntg. repeat ekg stable. Will heparinize patient, trend troponins, aggressive forced diuresis. Patient is refusing little catheter and BiPAP. Admit to ICU and monitor closely. Acute Hypoxic and Hypercarbic Respiratory Failure -- wean oxygen for spo2 > 90% -- would recommend BiPAP, but patient refusing. CHF exacerbation, unknown type -- 2d echo -- lasix 80mg iv q6h Elevated Troponin NSTEMI, type I vs. type II -- trend troponin -- dilaudid prn for chest pain -- ntg SL -- metoprolol prn for goal HR < 90 -- anticoagulate with heparin drip -- ASA -- consult cardiology COPD -- nebs Hypokalemia -- ICU electrolyte protocol -- aggressive replacement. -- daily bmp History of prior Pulmonary Emboli -- heparin drip cardiac diet as tolerated SCDs Code Status Full Code Josue Ospina MD Apr 13, 2017 04:17
[2017-04-13] MEDS: NITROGLYCERIN 0.4 MG SL 25 TABS/BTL SL SCH ×3 (04:20→04:32)
[2017-04-13] MEDS ORDERED: LORazepam 2 MG/ML VIAL IV PUSH ONE (04:30)
[2017-04-13] MEDS: HYDROmorphone HCL PF 1 MG/ML VIAL IV PUSH PRN ×4 (04:33→22:21)
--- NOTE | 2017-04-13 04:45 | RADRPT ---
EXAM DATE/TIME: 04/13/2017 03:11 [place] COMPARISON: CT PULMONARY ANGIOGRAM, February 11, 2017, 23:13. INDICATIONS : Shortness of breath. IV CONTRAST: 80 cc Omnipaque 350 (iohexol) IV RADIATION DOSE: 23.20 CTDIvol (mGy) MEDICAL HISTORY : Chronic obstructive pulmonary disease. Hypertension. Cardiovascular disease SURGICAL HISTORY : Left shoulder ORIF ENCOUNTER: Initial ACUITY: 1 day PAIN SCALE: 0/10 LOCATION: chest TECHNIQUE: Volumetric scanning of the chest was performed using a pulmonary embolism protocol MIP images were re constructed. Using automated exposure control and adjustment of the mA and/or kV according to patien t size, radiation dose was kept as low as reasonably achievable to obtain optimal diagnostic quality images. DICOM format image data is available electronically for review and comparison. Follow-up recommendations for detected pulmonary nodules are based at a minimum on nodule size and pa tient risk factors according to Fleischner Society Guidelines. FINDINGS: PULMONARY ARTERIES: No filling defects are seen in the pulmonary arteries through the segmental level. LUNGS: There is no pneumothorax . No concerning pulmonary nodule is visualized. Patchy groundglass densitie s and bibasilar consolidation. PLEURAE: There are bilateral moderate pleural effusions. MEDIASTINUM: There is good visualization of the great vessels of the middle mediastinum. No evidence of mediastin al or hilar adenopathy/mass. Coronary artery calcifications MUSCULOSKELETAL: Within normal limits for patient age. MISCELLANEOUS: The visualized upper abdominal organs demonstrate no acute abnormality. CONCLUSION: 1. No evidence for pulmonary embolism. 2. Patchy groundglass densities with bibasilar consolidation and bilateral pleural effusions, likely CHF. 3. Coronary artery calcifications. Holden Lin MD on April 13, 2017 at 4:41 Board Certified Radiologist. This report was verified electronically.
[2017-04-13 05:07] LABS: CREATINE KINASE 157 U/L (39-308)
[2017-04-13 05:10] LABS: CREATINE KINASE 155 U/L (39-308)
[2017-04-13 05:39] LABS: CKMB 10.1 NG/ML (0.5-3.6)
[2017-04-13] MEDS ORDERED: NITROGLYCERIN 0.4 MG SL 25 TABS/BTL SL PRN (07:45)
[2017-04-13] MEDS ORDERED: FUROSEMIDE 100 MG/10 ML VIAL IV PUSH SCH (09:00)
[2017-04-13] MEDS: DOCUSATE SODIUM 50 MG/SENNA 8.6 MG TAB PO SCH ×2 (09:00→21:14)
[2017-04-13] MEDS ORDERED: diphenhydrAMINE HCL 50 MG/ML VIAL IV SCH (09:00)
[2017-04-13] MEDS: ASPIRIN 325 MG TAB PO SCH (09:00)
[2017-04-13] MEDS ORDERED: HEPARIN SODIUM - IV 10,000 UNITS/10 ML VIAL IV PRN ×3 (09:00→22:30)
--- NOTE | 2017-04-13 09:20 | MB ---
cc: LESLIE MENDIOLA MD DATE OF CONSULTATION 04/13/2017 REASON FOR CONSULTATION Elevated troponin and chest pain. HISTORY OF PRESENT ILLNESS The patient is 56-year-old man with multiple medical problems. In August 2016, he had a bilateral pulmonary embolism. He subsequently has had pneumonia and multiple hospitalizations. He has had two syncopal episodes including one several weeks ago for which he was admitted. At that time, he had generalized weakness, syncope, acute kidney injury and was found to be dehydrated. 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 He reports that he had an episode of shortness of breath and chest pain. The patient reports a right-sided pain that radiated to the left side of the chest. He does complain of back pain as well. ALLERGIES MORPHINE PAST MEDICAL HISTORY Significant for: 1. Bilateral PE - noncompliance. The patient has not taking his Xarelto. 2. Hypertension 3. Hyperlipidemia 4. Diabetes with neuropathy 5. CVA 6. GERD 7. Pneumonia 8. Frequent falls 9. Encephalopathy OUTPATIENT MEDICATIONS Include: 1. Fludrcortisone 2. Oxycodone 3. Oxygen 4. Xarelto 5. Jardiance REVIEW OF SYSTEMS The patient does not report a nonproductive cough and denies any fevers. Other than this and what is mentioned in the HPI, all 12 systems are negative. SOCIAL HISTORY The patient is a former smoker. FAMILY HISTORY Noncontributory PHYSICAL EXAMINATION VITAL SIGNS: Temperature 97.7, pulse 100, blood pressure 112/75. GENERAL: He is a well-appearing man. He is in no apparent distress. NECK: His neck is difficult to assess. LUNGS: The lungs have fine basilar rales. CARDIOVASCULAR: He has a normal S1 and a 2/6 systolic murmur. No rubs or gallops were appreciated. ABDOMEN: The abdomen is soft. EXTREMITIES: The extremities are free from edema. He has 1-2+ popliteal pulses and his dorsalis pedis pulses are trace. The right foot is a bit cool to touch. LAB VALUES Show a hemoglobin of 12, creatinine of 1.14, and a troponin of 3.86 with a total CK 155. His albumin is 3.2. EKG shows sinus tachycardia with lateral sub-millimeter ST depression. IMPRESSION NSTEMI - This is consistent with acute myocardial infarction. It is not clear if it is a secondary VT from his COPD with an initial saturation of 60, versus primary VT. The patient has been off his Xarelto for two days now per his account, thus I do believe it is reasonable to proceed with catheterization. He will be at higher risk given his comorbid conditions and the hypoxia. The case was discussed with the grip assembler, Dr. Masters. We both agree this is reasonable. It is noted that the patient had a non-ischemic nuclear stress test in October of this year with a large fixed inferoapical defect and normal wall motion. The risks, benefits and alternatives were discussed with the patient. He is agreeable to proceed knowing that there is at least a 10% [place] for , VT, CVA, bleeding and other. Respiratory insufficiency - The patient has had ongoing respiratory difficulties and does have both a history of PE and COPD as well as recent pneumonia. His oxygen sat is 85% on 8l NC. Pt needs NRB or intubation and he is declining. This is being managed by the grip assembler team. Lipids - We will check the patient's cholesterol profile. CHF- acute Other- too unstable for transfer---Urgent/emergent cath Leslie Mendiola M.D. ASHLEY /8:38 AM /9:05 AM KM
[2017-04-13] MEDS: FUROSEMIDE 40 MG/4 ML VIAL IV PUSH SCH ×3 (09:34→21:15)
[2017-04-13] MEDS: CARVEDILOL 6.25 MG TAB PO SCH ×2 (09:34→21:14)
[2017-04-13] MEDS ORDERED: HEPARIN-NS/PF INJ 500 ML ONE (09:47)
[2017-04-13] MEDS ORDERED: diphenhydrAMINE HCL 50 MG/ML VIAL ONE (09:48)
[2017-04-13] MEDS ORDERED: ASPIRIN 325 MG TAB PO SCH (10:00)
[2017-04-13] MEDS: SODIUM CHLOR 0.9% 1000 ML INJ 1,000 ML IV SCH (10:00)
[2017-04-13] MEDS ORDERED: BIVALIRUDIN 250 MG VIAL ONE (10:25)
--- NOTE | 2017-04-13 10:47 | ECHRPT ---
Indication: Heart failure, unspecified CONCLUSIONS The left ventricle is not well visualized. The left ventricular systolic function is possibly, [id number] reduced with an estimated ej ection fraction in the range of 35-40%. There was limited left ventricular wall motion assessment due to poor endocardial visualization. Mild thickening of the mitral valve leaflets. Moderate mitral valve regurgitation. . The aortic valve is not well visualized. Aortic valve sclerosis is present. No aortic valve regurgitation. No aortic valve stenosis. The tricuspid valve is not well visualized. There is moderate tricuspid regurgitation. The estimated pulmonary arterial pressure is 58 mmHg. There is estimated moderate pulmonary hypertension present (range 50-60 mmHg). The pulmonary valve is not well visualized. The inferior vena cava is dilated. A left sided pleural effusion is noted. BP: / HR: 80 Rhythm: Sinus MEASUREMENTS (Male / Female) Normal Values Technical Quality:Poor 2D ECHO LV Diastolic Diameter PLAX 5.3 cm 4.2 - 5.9 / 3.9 - 5.3 cm LV Systolic Diameter PLAX 4.1 cm IVS Diastolic Thickness 1.3 cm 0.6 - 1.0 / 0.6 - 0.9 cm LVPW Diastolic Thickness 1.2 cm 0.6 - 1.0 / 0.6 - 0.9 cm LV Relative Wall Thickness 0.5 LVOT Diameter 1.8 cm M-MODE Aortic Root Diameter MM 2.4 cm LA Systolic Diameter MM 3.5 cm LA Ao Ratio MM 1.5 AV Cusp Separation MM 1.8 cm DOPPLER AV Peak Velocity 127.0 cm/s AV Peak Gradient 6.5 mmHg LVOT Peak Velocity 92.3 cm/s LVOT Peak Gradient 3.4 mmHg AV Area Cont Eq pk 1.8 cm MR Peak Velocity 444.0 cm/s MR Peak Gradient 78.9 mmHg LV E' Lateral Velocity 8.3 cm/s LV E' Septal Velocity 5.7 cm/s TR Peak Velocity 347.0 cm/s TR Peak Gradient 48.2 mmHg PV Peak Velocity 86.9 cm/s PV Peak Gradient 3.0 mmHg FINDINGS LEFT VENTRICLE The left ventricle is not well visualized. The left ventricular systolic function is possibly, [id number] reduced with an estimated ej ection fraction in the range of 35-40%. There was limited left ventricular wall motion assessment due to poor endocardial visualization. RIGHT VENTRICLE Normal right ventricular size and systolic function. LEFT ATRIUM The left atrial size is normal. RIGHT ATRIUM The right atrial size is normal. ATRIAL SEPTUM Normal atrial septal thickness without atrial level shunting by limited color doppler interrogation. AORTA The aortic root and proximal ascending aorta are normal in size on limited imaging. MITRAL VALVE Mild thickening of the mitral valve leaflets. Moderate mitral valve regurgitation. . AORTIC VALVE The aortic valve is not well visualized. Aortic valve sclerosis is present. No aortic valve regurgitation. No aortic valve stenosis. TRICUSPID VALVE The tricuspid valve is not well visualized. There is moderate tricuspid regurgitation. The estimated pulmonary arterial pressure is 58 mmHg. There is estimated moderate pulmonary hypertension present (range 50-60 mmHg). PULMONARY VALVE The pulmonary valve is not well visualized. VESSELS The inferior vena cava is dilated. PERICARDIUM No pericardial effusion. A left sided pleural effusion is noted. Vinicio Rooney MD (Electronically Signed) Final Date:13 April 2017 10:46
[2017-04-13] MEDS ORDERED: SODIUM CHLOR 0.9% 1000 ML INJ 1,000 ML IV SCH (10:49)
[2017-04-13] MEDS ORDERED: MISC INFORMATION XX ONE (11:00)
--- NOTE | 2017-04-13 11:02 | MA ---
cc: LESLIE MENDIOLA MD DATE: 04/13/2017. PROCEDURES PERFORMED: 1. Left heart catheterization. 2. Selective coronary angiography. 3. Left ventriculography. INDICATIONS FOR THE PROCEDURE: Urgent/emergent CHF-Non-S-T elevation myocardial infarction. DESCRIPTION OF THE PROCEDURE IN DETAIL: The patient gave informed consent. He was prepped in the usual sterile fashion. A subcutaneous injection of lidocaine was made in the left inguinal area. Access was achieved into the left femoral artery and a 4-Korean sheath was inserted. A JL4 and 3DRC were utilized to engage the left and right coronary arteries. Angiogram was obtained in multiple views and projections. An angled 4-Korean pigtail catheter was utilized for a hand LV injection. FINDINGS: 1. Left main - this vessel has diffuse mild to moderate disease of 20% to 30% with calcification. It does give rise to an left anterior descending and circumflex. 2. Left axis deviation - this vessel has a proximal 20% to 30% calcific lesion. In the distal portion of the proximal vessel there is a 50% stenosis that is long and extends into the mid vessel. This was followed by a sequential hazy 90% stenosis. The vessel distal to this appears to be about 2.0 to 2.5 mm and it relatively free of disease and does reach the apex. The first diagonal has a mid 90% stenosis and is a 1.0 to 1.5 mm vessel. 3. Circumflex - this is a nondominant vessel that has diffuse mild to moderate disease of 20% to 30%. There are two smaller proximal OMs that appear to have mild luminal irregularities. The third OM is a moderate sized vessel that has diffuse mild disease of 20% proximally and moderate disease of 30% to 40% distally. OM #4 is rather small and probably diffusely diseased. D 4. Right coronary artery - this vessel has a proximal 80% stenosis. The vessel has moderate calcium throughout. There is a mid 40% stenosis. It is a dominant vessel. There is mild disease of the posterior descending artery. LEFT VENTRICULOGRAPHY: This shows inferior hypokinesis and ejection fraction is estimated at about 40%. Left ventricular pressure - 110/31 mmHg. Aortic pressure - 109/70 mmHg. IMPRESSIONS: 1. Severe multivessel disease. 2. Mild left ventricular impairment. 3. CT surgery consultation given he has multivessel disease in a diabetic with mild LV impairment. Additionally, the patient is noncompliant and would be a poor candidate for a drug-eluting stent. TOTAL CONTRAST USED: A total of 60 cc of contrast was utilized. Malinda Ye/BERNABE /10:42 AM /10:49 AM KM
--- NOTE | 2017-04-13 11:04 | CATHPROC ---
[employer] HIS Report Study Information Study Number Admission Scheduled Start Study Start [id number] Apr 13 2017 3:39AM 04/13/2017 Apr 13 2017 9:28AM [place] [facility] Cardiac Catheterization Admit Source Facility Department Emergency department [facility] - [facility] Physician and Clinical Staff Initial MD Burris, Riya Drop Pit Worker Rosmery Leon RN Drop Pit Worker Crystal Melendez,FABIENNE/BA Other cathlab, cathlab Recorder Eric Harris RCIS(BS) Scrub Lola Victoria RT(R) Procedures Performed Procedure Location (Site) Vessel Name Coronary Angiograms LCA Left Coronary Coronary Angiograms RCA Right Coronary L Heart Cath LV Gram-hand inj. LV LV Ventricle Equipment Time Packer Operator Automatic Description Size Mfg Part Number Used/Scraped TRANSDUCER, TRMIGUE [id number] 09:28 STANFORD LEON * Used W/STOCKCOCK *[id number] [id number] *[id number] *[id number] [id number] *[id number] [id number] *[id number] 09:28 Clear Standards INDUSTRIES PACK, CCL CUSTOM * Used *[id number] 09:28 Clear Standards PACER PEN, SKIN DUAL W/ RULER * Used *[id number] 09:28 E-House SHEATH, FR4.5 PRELUDE 11CM FR 4.5 Used [id number] 09:28 [email or web address] MEDICAL WIRE, 3MMJ .035 180CM 180CM Used *[id number] 09:28 NAMIC CONTRAST CONTROLLER, SPIKE * Used *[id number] 09:28 NAMIC MANIFOLD, 4 PORT * Used *[id number] 09:28 NYCOMED OMNIPAQUE, 350 MG, 150ML 150ML [id number] Used [id number] 09:28 S-cubism MEDICAL BLANKET,WARM AIR CCL * Used *[id number] 09:28 S-cubism MEDICAL BLANKET,WARM AIR CCL * Used *[id number] History: Current Medications Medication Dosage/Unit Route Frequency Last Date/Time Taken Insulin Statins (any) ASA XARELTO History: Allergies Allergy Reaction Morphine History: Risk Factors Family History of Hypertension Dyslipidemia Previous ID Premature CAD Yes Yes No No Prior Valve Prior PCI Prior CABG Surgery No No No Cerebrovascular Peripheral Artery Chronic Lung On Dialysis Diabetes Diabetes Therapy Disease Disease Disease No Yes No Yes Yes Insulin History: Symptoms/Diagnosis Selection Items SOB History: Stress Tests Stress or Imaging Studies Performed Yes Standard Exercise Stress Test No Stress Echo No Stress Test SPECT Stress Test SPECT Result Stress Test SPECT Ischemia Risk/Extent Yes Positive Intermediate Stress Test CMR No Cardiac CTA Coronary Calcium Score No No History: Other Disease Selection Items HTN History: Other Current Smoker No Labs Hgb (g/dl) Hct (%) WBC (l/cumm) Platelets (thousands) 11.60-17.00 35.00-51.00 4.00-11.00 150.00-450.00 12.0 35.9 8.4 227 Glucose (mg/dl) BUN (mg/dl) Creatinine (mg/dl) BUN:Creatinine (1:x) 74.00-106.00 7.00-18.00 0.50-1.30 10.00-20.00 248 26 1.1 23.6 Na (meq/l) K (meq/l) 136.00-145.00 3.50-5.10 139 4.7 Troponin I (ng/ml) CPK (u/l) CPK-MB (ng/ML) 0.02-0.05 26.00-308.00 0.50-3.60 5.09 155 10.1 Medication Medication Total Dose (Bolus/Oral) Medication Total Dosage/Unit 1% XYLOCAINE 20 mL BENADRYL 25 mg FENTANYL 25 mcg OXYGEN 10 l/min Medications (Bolus/Oral) Medication Time Given Dosage/Unit Administered By Reason OXYGEN 04/13/2017 9:45:45 AM 10 l/min cathlab, cathlab 10 l/min OXYGEN given in lab by cathlab cathlab via Nasal. BENADRYL 04/13/2017 10:00:02 AM 25 mg Crystal Melendez 25 mg BENADRYL given in lab by Crystal Melendez, RN/BA in Right Antecubital via Peripheral IV. Ordered by Riya Burch. FENTANYL 04/13/2017 10:02:02 AM 25 mcg Crystal Melendez 25 mcg FENTANYL given in lab by Crystal Melendez, RN/BA in Left Antecubital via Peripheral IV. Ordered by Riya Burch. 1% XYLOCAINE 04/13/2017 10:13:17 AM 20 mL Riya Burris 20 mL 1% XYLOCAINE given in lab by Riya Burris in Left Groin via Subcutaneous. Medication (Drip) Medication Time Given Dosage/Unit Concentration/Unit Diluent (ml) Solution IV Solutions 04/13/2017 9:45:45 AM 0 mL (IV) 500 NaCl .9 IV Solutions given in lab by sonia scott in Left Antecubital via Peripheral IV. Pump/Drip Flow = 20 ml/hr using NaCl .9. Ordered by Riya Burris. Initial Case Assessment Cardiovascular HR Rhythm NIBP Chest Pain 103 STACH 134/86 8 Edema Present Skin color Skin None Normal Warm Dry Circulatory - Right Pulses Dorsalis Pedis Femoral Radial d 1 2 Scale (0,1,2,3,4,d) Circulatory - Left Pulses Dorsalis Pedis Femoral Radial d 1 Scale (0,1,2,3,4,d) Neurological State Oriented to time-place- Alert Moves all extremities person Respiration - General Respiration Rate SpO2 (%) (B/min) 15 99 Final Case Assessment Cardiovascular HR Rhythm NIBP Chest Pain 90 NSR 114/74 8 Edema Present Skin color Skin None Normal Warm Dry Circulatory - Right Pulses Dorsalis Pedis Femoral Radial d 1 2 Scale (0,1,2,3,4,d) Circulatory - Left Pulses Dorsalis Pedis Femoral Radial d 1 Scale (0,1,2,3,4,d) Neurological State Oriented to time-place- Alert Moves all extremities person Respiration - General Respiration Rate SpO2 (%) (B/min) 15 99 Chronological Log Time Study Chronological Log 9:45:34 Patient arrived via Bed on rebreather mask. 9:45:35 Patient Name, D.O.B, / Armband Verified By R.N. 9:45:35 Consent signed by the physician and the patient and verified by the [facility] staff. 9:45:36 Pre-op and post- op instructions given; patient acknowledges understanding of instructions. 9:45:37 Verbal Stimulation=2 Physical Stimulation=2 Airway=2 Respiration=2 TOTAL=8. (0=absent, 1=li mited, 2=present) 9:45:39 Presedation assessment performed by Veterinary Milk Specialist RN. 9:45:39 Immediate Presedation assesment performed by physician. 9:45:40 Patient has been NPO for More than 6Hrs. 9:45:40 Skin Breakdown- none per patient 9:45:42 Patient Warmer Placed on the Table. 9:45:43 Pasha Prominences Protected 9:45:44 A # 20 IV was noted in the Antecubital (left). Grade = 0 9:45:45 10 l/min OXYGEN given in lab by cathleanna cathlab via Nasal. 9:45:45 A # 20 IV was noted in the Antecubital (right). Grade = 0 IV Solutions given in lab by cathleanna cathlab in Left Antecubital via Peripheral IV. Pump/Drip Flow = 20 ml/hr using NaCl 9:45:45 .9. Ordered by Riya Burris. 9:45:46 History and physical on the chart or being dictated. 9:52:48 MD arrived. Vitals capture started with the following parameters, Patient=Adult, Interval=5 min, Initial Pr tmxnbz=940 mmHg, 9:56:13 Deflation Rate=5 mmHg, Cuff placed on Right Arm 9:56:14 Reference ECG taken 9:56:47 HR=88 bpm, WFCR=649/91 mmhg, SpO2=95.0 %, Resp=16 B/min, Pain=0, Jourdan=10, Zacarias=2 9:57:03 Contrast Scanned 9:57:03 Immediate Presedation assesment performed by physician. 25 mg BENADRYL given in lab by Crystal Melendez, RN/BA in Right Antecubital via Peripheral IV. Ordere d by [place], 10:00:02 [facility]. 10:01:48 HR=87 bpm, JJTH=468/99 mmhg, SpO2=92 %, Resp=16 B/min, Pain=0, Jourdan=10, Zacarias=2 25 mcg FENTANYL given in lab by Crystal Melendez, RN/BA in Left Antecubital via Peripheral IV. Ordere d by [place], 10:02:02 [facility]. Assessment: Initial Case, WS=985 BPM, Rhythm=STACH, IECV=201/86 mmhg, Chest Pain=8, Edema=None, Color=Normal, Skin = Warm, Dry Right Pulses: Dominguez Ped=d, Femoral=1, Radial=2 10:05:02 Left Pulses: Dominguez Ped=d, Femoral=1 Neurological: State=Alert, Ox3, AVILES Respiration: Resp=15 B/min, SpO2=99 % 10:06:47 QI=357 bpm, FBAX=627/86 mmhg, SpO2=99 %, Resp=16 B/min, Pain=0, Jourdan=10, Zacarias=2 10:06:49 Right radial, right brachial, and groin(s) prepped with 2% chlorhexidine, and with a 3 min. waiting time. Time Out. Correct patient, correct procedure,correct physician, ,power injector loaded with con trast with surgical team 10:08:17 present. Time Out Concurred by , individual staff in procedure 10:08:30 Case Start 10:08:31 Verbal Stimulation=2 Physical Stimulation=2 Airway=2 Respiration=2 TOTAL=8. (0=absent, 1=li mited, 2=present) 10:09:54 Pressure channel 1 zeroed. 10:11:49 HR=94 bpm, ZUHB=498/93 mmhg, SpO2=97 %, Resp=15 B/min, Pain=0, Jourdan=10, Zacarias=2 10:13:17 20 mL 1% XYLOCAINE given in lab by Riya Burris in Left Groin via Subcutaneous. 10:16:48 HR=90 bpm, OVXK=185/81 mmhg, SpO2=92.0 %, Resp=17 B/min, Pain=0, Jourdan=10, Zacarias=2 10:19:00 Access site was Left Femoral Artery. 10:19:04 A SHEATH, FR4.5 PRELUDE 11CM FR 4.5 was advanced into the Fem Art (left) using the Percutan eous technique. 10:20:08 An injection in the Fem Art (left) was made through the SHEATH, FR4.5 PRELUDE 11CM FR 4.5. A JL 4.0 INFINITI CATHETER FR 4 was advanced over a wire. OMNIPAQUE, 350 MG, 150ML 150ML was us ed for 10:20:28 injections. 10:21:49 HR=86 bpm, JWAX=433/79 mmhg, SpO2=97.0 %, Resp=15 B/min, Pain=0, Jourdan=10, Zacarias=2 10:22:33 The LCA was injected and visualized at various angles. OMNIPAQUE, 350 MG, 150ML 150ML used . Recorded Pressure: Ao, HR=88, Condition=Condition 1 10:22:44 (Aorta) Ao 107/71/87 After removing the current catheter a 3DRC INFINITI CATHETER FR 4 was advanced over a WIRE, 3MM J .035 180CM 10:24:01 180CM. 10:25:14 Activated Clotting Time Drawn 10:25:56 The RCA was injected and visualized at various angles. OMNIPAQUE, 350 MG, 150ML 150ML used . After removing the current catheter a PIGTAIL ANG. INFINITI CATHETER FR 4 was advanced over a W ROSY, 3MMJ .035 10:26:47 180CM 180CM. 10:26:50 HR=92 bpm, QSRM=882/68 mmhg, Resp=13 B/min, Pain=0, Jourdan=10, Zacarias=2 10:28:33 ACT (Normal Range 90-180) = 151 Recorded Pressure: LV, HR=91, Condition=Condition 1 10:28:45 (Left Ventricle) LV 115/19/32 10:29:19 The LV was manually injected with 10 cc's and visualized. OMNIPAQUE, 350 MG, 150ML 150ML us ed. Recorded Pressure: LV, Ao, HR=90, Condition=Condition 1 10:30:18 (Left Ventricle) LV 110/21/31, (Aorta) Ao 109/70/88 10:31:28 Catheter was removed 10:31:45 HR=89 bpm, GFII=829/74 mmhg, SpO2=95.0 %, Resp=13 B/min, Pain=0, Jourdan=10, Zacarias=2 10:31:58 Case End Assessment: Final Case, HR=90 BPM, Rhythm=NSR, BMNU=325/74 mmhg, Chest Pain=8, Edema=None, Col or=Normal, Skin = Warm, Dry Right Pulses: Dominguez Ped=d, Femoral=1, Radial=2 10:33:56 Left Pulses: Dominguez Ped=d, Femoral=1 Neurological: State=Alert, Ox3, AVILES Respiration: Resp=15 B/min, SpO2=99 % 10:34:34 Sterile dressing applied to site 10:34:35 No case complications noted. 10:34:37 Cine recording checked. 10:34:37 Bedside Report will be given. 10:34:40 Contrast Scanned 10:34:41 Verbal Stimulation=2 Physical Stimulation=2 Airway=2 Respiration=2 TOTAL=8. (0=absent, 1=l imited, 2=present) 10:34:51 A Left Heart Cath was performed. 10:35:01 Sheath removed; pressure applied to access site. 10:36:48 HR=91 bpm, ITND=896/81 mmhg, SpO2=98.0 %, Resp=16 B/min, Pain=0, Jourdan=10, Zacarias=2 10:41:51 HR=85 bpm, OLCY=901/80 mmhg, SpO2=99.0 %, Resp=15 B/min, Pain=0, Jourdan=10, Zacarias=2 10:46:50 HR=86 bpm, WCUS=228/75 mmhg, SpO2=97.0 %, Resp=15 B/min, Pain=0, Jourdan=10, Zacarias=2 10:51:49 HR=82 bpm, IPFO=266/76 mmhg, SpO2=99.0 %, Resp=17 B/min, Pain=0, Jourdan=10, Zacarias=2 10:56:42 Sterile dressing applied to site 10:56:46 HR=83 bpm, NRWP=609/78 mmhg, SpO2=98.0 %, Resp=16 B/min, Pain=0, Jourdan=10, Zacarias=2 11:03:43 Patient moved to [facility] End Study - Contrast Media Used In Study Contrast Total Opened (mL) Total Used (mL) Total Wasted (mL) Omnipaque 60 60 0 End Study - Maximum Contrast Load Max Contrast Load (mL) 396.9 End Study - Radiation Exposure Fluoro Time (minutes) 1.7 End Study - Sheaths Sheaths Pulled By Sheath Hold Time (min) Lola Victoria 20 End Study - Patient Disposition Complications Transferred To Interventional Outcome No Critical Care Bed No attempt made
[2017-04-13] MEDS ORDERED: METOPROLOL TARTRATE 25 MG TAB PO SCH (16:30)
[2017-04-13] MEDS ORDERED: CEFAZOLIN INJ 500 MG in SODIUM CHLORIDE 0.9% IRR BTL 500 ML IRRIGATION SCH (16:30)
[2017-04-13] MEDS ORDERED: CHLORHEXIDINE GLUCONATE 4% SOLN 120 ML BTL TOPICAL SCH (16:30)
[2017-04-13] MEDS ORDERED: INSULIN REGULAR (IV INFUSION) 100 UNITS in SODIUM CHLORIDE 0.9% INJ 100 ML IV SCH (16:30)
[2017-04-13] MEDS ORDERED: PAPAVERINE INJ 60 MG, NITROGLYCERIN INJ 100 MCG, DILTIAZEM INJ 100 MG in SODIUM CHLORID... IRRIGATION SCH (16:30)
[2017-04-13] MEDS ORDERED: ceFAZolin 2 GM PREMIX 50 ML IV SCH (16:30)
--- NOTE | 2017-04-13 16:40 | PD.CONS ---
History of Present Illness Service CT Surgery Consult Requested By Dr. Burris Reason for Consult NSTEMI Combined systolic and diastolic HF CAD [facility] Diagnoses: (1) Acute respiratory failure with hypoxia (2) NSTEMI (non-ST elevated myocardial infarction) (3) Pulmonary edema (4) Unsteady gait (5) Orthostatic hypotension (6) DM (diabetes mellitus) (7) MIRNA (acute kidney injury) (8) Bilateral pulmonary embolism (9) History of stroke History of Present Illness 56 y/o male presents with worsening dyspnea and hypoxia with chest pressure, diaphoresis. He has a complicated PMH s/p CVA in 2010 and ongoing issues with balance/gait, bilateral pulmonary emboli recently for which he is supposed to be taking Xarelto, tobacco abuse, COPD on home oxygen, diabetes, hyperlipidemia , and HTN. He ruled in for NSTEMI. He underwent LHC and was found to have multivessel CAD. He is being considered for CABG. Review of Systems Constitutional: COMPLAINS OF: Diaphoretic episodes, Fatigue, DENIES: Fever, Weight gain, Weight loss, Chills, Dizziness, Change in appetite, Night Sweats Endocrine: DENIES: Heat/cold intolerance, Polydipsia, Polyuria, Polyphagia Eyes: DENIES: Blurred vision, Diplopia, Eye inflammation, Eye pain, Vision loss , Photosensitivity, Double Vision Ears, nose, mouth, throat: DENIES: Tinnitus, Hearing loss, Vertigo, Nasal discharge, Oral lesions, Throat pain, Hoarseness, Ear Pain, Running Nose, Epistaxis, Sinus Pain, Toothache, Odynophagia Respiratory: COMPLAINS OF: Cough, Shortness of breath, DENIES: Apneas, Snoring , Wheezing, Hemoptysis, Sputum production Cardiovascular: COMPLAINS OF: Chest pain, Syncope, Dyspnea on Exertion, DENIES : Palpitations, PND, Lower Extremity Edema, Orthopnea, Claudication Gastrointestinal: DENIES: Abdominal pain, Black stools, Bloody stools, Constipation, Diarrhea, Nausea, Vomiting, Difficulty Swallowing, Anorexia Genitourinary: DENIES: Sexual dysfunction, Urinary frequency, Urinary incontinence, Urgency, Hematuria, Dysuria, Nocturia, Penile Discharge, Testicular Pain, Testicular Swelling Musculoskeletal: DENIES: Joint pain, Muscle aches, Stiffness, Joint Swelling, Back pain, Neck pain Integumentary: DENIES: Abnormal pigmentation, Nail changes, Pruritus, Rash Hematologic/lymphatic: DENIES: Bruising, Lymphadenopathy Immunologic/allergic: DENIES: Eczema, Urticaria Neurologic: COMPLAINS OF: Abnormal gait, Poor Balance, DENIES: Headache, Localized weakness, Paresthesias, Seizures, Speech Problems, Tremor Psychiatric: DENIES: Anxiety, Confusion, Mood changes, Depression, Hallucinations, Agitation, Suicidal Ideation, Homicidal Ideation, Delusions Past Family Social History Allergies: Coded Allergies: Morphine (Verified Allergy, Mild, 04/13/17) Past Medical History 1. Bilateral PE - noncompliance. The patient has not taking his Xarelto. 2. Hypertension 3. Hyperlipidemia 4. Diabetes with neuropathy 5. CVA 6. GERD 7. Pneumonia 8. Frequent falls 9. Encephalopathy 10. orthostatic hypotension Reported Medications 1. Fludrcortisone 2. Oxycodone 3. Oxygen 4. Xarelto 5. Jardiance 6. Metformin 7. ASA 8. Lipitor 9. Protonix 10. Lyrica 11. Lantus Active Ordered Medications Current Medications Medications (Trade) Dose Ordered Sig/Dario Route Start Time Stop Time Status Last Admin (NS Flush) 2 ml UNSCH PRN IVF 04/13/17 01:15 Magnesium Oxide 800 mg 800 mg UNSCH PRN PO 04/13/17 03:45 Magnesium Sulfate 4 gm/Sodium Chloride 100 ml @ 50 mls/hr UNSCH PRN IV 04/13/17 03:45 Magnesium Sulfate 2 gm/Sodium Chloride 100 ml @ 50 mls/hr UNSCH PRN IV 04/13/17 03:45 Potassium Chloride 100 ml @ 50 mls/hr Q2H PRN IV 04/13/17 03:45 Potassium Chloride 100 ml @ 50 mls/hr Q2H PRN IV 04/13/17 03:45 Potassium Chloride 100 ml @ 50 mls/hr Q2H PRN IV 04/13/17 03:45 (KCl 40 Meq Premix Inj) 100 ml @ 25 mls/hr UNSCH PRN IV 04/13/17 03:45 (K-Phos) 2,000 mg Q4H PRN PO 04/13/17 03:45 Potassium Phosphate 2000 mg 2,000 mg UNSCH PRN PO/TUBE 04/13/17 03:45 Potassium Phosphate 30 mmol/ Sodium Chloride 260 ml @ 42 mls/hr UNSCH PRN IV 04/13/17 03:45 (Sodium Phosphate Inj/NS 250 ml Inj) 250 ml @ 42 mls/hr UNSCH PRN IV 04/13/17 03:45 (D50w (Vial) Inj) 25 ml UNSCH PRN IV PUSH 04/13/17 03:45 (NovoLIN R SUPPLEMENTAL SCALE) 1 Q4HR SQ 04/13/17 04:00 04/13/17 04:18 (Zofran Inj) 4 mg Q6H PRN IV 04/13/17 03:45 Miscellaneous Information 1 Q361D XX 04/13/17 03:45 (Chlorhexidine 2% Cloth) 3 pack Taper DAILY@04 TOP 04/13/17 04:00 04/09/18 03:59 (Chlorhexidine 2% Cloth) 3 pack UNSCH PRN TOP 04/13/17 03:45 (Jasmyne-Colace) 1 tab BID PO 04/13/17 09:00 (Aspirin) 325 mg DAILY PO 04/13/17 09:00 (Dilaudid Pf Inj) 0.5 mg Q4H PRN IV PUSH 04/13/17 04:15 04/13/17 07:42 Miscellaneous Information HOLD METFORMIN FOR... 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 [email or web address] Tobacco abuse - 1-2ppd x 45 yrs Denies ETOH, drugs Not - no close relatives Physical Exam Vital Signs Vital Signs Date Time Temp Pulse Resp B/P Pulse Ox O2 Delivery O2 Flow Rate FiO2 8/12/17 15:24 96 Non-Rebreather 10.00 04/13/17 15:24 74 04/13/17 15:23 98.1 71 16 112/70 97 04/13/17 13:32 77 20 107/68 95 04/13/17 12:00 95 Non-Rebreather 10.00 04/13/17 12:00 77 04/13/17 12:00 98.0 83 20 102/71 95 04/13/17 11:00 97.8 77 20 97/76 99 04/13/17 08:00 90 Nasal Cannula 8.00 04/13/17 07:45 92 Nasal Cannula 6.00 04/13/17 07:02 80 04/13/17 07:00 18 04/13/17 06:15 92 Nasal Cannula 6.00 04/13/17 06:00 92 Nasal Cannula 6.00 04/13/17 05:35 98 04/13/17 05:30 97.9 100 22 112/75 92 04/13/17 04:37 104 18 118/61 93 Nasal Cannula 6 04/13/17 04:16 94 Nasal Cannula 5.00 04/13/17 04:01 112 20 151/88 91 Nasal Cannula 6 04/13/17 03:33 107 22 169/94 91 Nasal Cannula 6 04/13/17 01:25 95 Non-Rebreather 8 04/13/17 01:25 95 Non-Rebreather 04/13/17 01:22 98.7 120 24 138/90 95 Physical Exam GENERAL: This is a well-nourished, well-developed patient, in no apparent distress. SKIN: No rashes, ecchymoses or lesions. Cool and dry. HEAD: Atraumatic. Normocephalic. No temporal or scalp tenderness. EYES: Pupils equal round and reactive. Extraocular motions intact. No scleral icterus. No injection or drainage. ENT: Nose without bleeding, purulent drainage or septal hematoma. Throat without erythema, tonsillar hypertrophy or exudate. Uvula midline. Airway patent. NECK: Trachea midline. No JVD or lymphadenopathy. Supple, nontender, no meningeal signs. CARDIOVASCULAR: Regular rate and rhythm without murmurs, gallops, or rubs. RESPIRATORY: Clear to auscultation. Breath sounds equal bilaterally. No wheezes , rales, or rhonchi. GASTROINTESTINAL: Abdomen soft, non-tender, nondistended. No hepato-splenomegaly , or palpable masses. No guarding. MUSCULOSKELETAL: Extremities without clubbing, cyanosis, or edema. No joint tenderness, effusion, or edema noted. No calf tenderness. Negative Homans sign bilaterally. NEUROLOGICAL: Awake and alert. Cranial nerves II through XII intact. Motor and sensory grossly within normal limits. Five out of 5 muscle strength in all muscle groups. Normal speech. Laboratory Laboratory Tests Test 04/13/17 04/13/17 04/13/17 04/13/17 01:08 01:30 04:35 07:50 Blood Gas Puncture Site Blood Gas Patient Temperature 98.6 Venous Blood pH 7.24 Venous Blood Partial Pressure 63 CO2 Venous Blood Partial Pressure 37 O2 Venous Blood HCO3 26 Venous Blood Oxygen Saturation 59 Venous Blood Oxygen Content 10.2 Venous Blood Base Excess -0.3 Oxygen Delivery Device NRB Blood Gas Liter Flow 15 Blood Gas Inspired Oxygen 100 White Blood Count 8.4 Red Blood Count 3.93 Hemoglobin 12.0 Hematocrit 35.9 Mean Corpuscular Volume 91.4 Mean Corpuscular Hemoglobin 30.5 Mean Corpuscular Hemoglobin 33.4 Concent Red Cell Distribution Width 13.7 Platelet Count 227 Mean Platelet Volume 9.2 Neutrophils (%) (Auto) 76.8 Lymphocytes (%) (Auto) 9.7 Monocytes (%) (Auto) 11.2 Eosinophils (%) (Auto) 0.5 Basophils (%) (Auto) 1.8 Neutrophils # (Auto) 6.5 Lymphocytes # (Auto) 0.8 Monocytes # (Auto) 0.9 Eosinophils # (Auto) 0.0 Basophils # (Auto) 0.2 CBC Comment DIFF FINAL Differential Comment Sodium Level 139 Potassium Level 4.7 Chloride Level 103 Carbon Dioxide Level 28.1 Anion Gap 8 Blood Urea Nitrogen 26 Creatinine 1.14 Estimat Glomerular Filtration 66 Rate Random Glucose 248 Calcium Level 8.7 Total Bilirubin 0.6 Aspartate Amino Transf 20 (AST/SGOT) Alanine Aminotransferase 15 (ALT/SGPT) Alkaline Phosphatase 88 Total Creatine Kinase 157 155 Creatine Kinase MB 10.0 10.1 Troponin I 2.58 3.86 5.04 B-Type Natriuretic Peptide 662 Total Protein 7.2 Albumin 3.2 Result Diagram: 04/13/1712904/13/17129 Imaging Last Impressions Chest X-Ray 04/13/17 0114 Signed Impressions: Service Date/Time: Thursday, April 13, 2017 01:24 - CONCLUSION: Bibasilar patchy infiltrates greater right lower lobe. Holden Lin MD CT Angiography 04/13/17 0000 Signed Impressions: Service Date/Time: Thursday, April 13, 2017 03:11 - CONCLUSION: 1. No evidence for pulmonary embolism. 2. Patchy groundglass densities with bibasilar consolidation and bilateral pleural effusions, likely CHF. 3. Coronary artery calcifications. Holden Lin MD Course Patient underwent LHC today and remains somewhat hypoxic. He denies chest pain currently. Assessment and Plan Problem List: (1) NSTEMI (non-ST elevated myocardial infarction) Status: Acute (2) CAD (coronary artery disease) Status: Acute Assessment and Plan 56y/o male with multiple comorbid conditions presents with NSTEMI, hypoxia, and multivessel CAD with a background h/o recent pulmonary emboli. He is currently being treated for CHF/pulmonary edema and remains on high FiO2. CABG is recommended, but his risk is high. I will request PFTs and carotid u/s. Timing of CABG would depend on clinical course. I will reorder heparin and agree with current management of heart failure/diuresis. Discussed Condition With patient Problem Qualifiers (1) DM (diabetes mellitus): Qualified Code: E11.59 - Type 2 diabetes mellitus with other circulatory complication, without long-term current use of insulin (2) CAD (coronary artery disease): Qualified Code: I25.110 - Coronary artery disease involving [place] coronary artery of [place] heart with unstable angina pectoris Callie Falcon MD Apr 13, 2017 16:40
[2017-04-13] MEDS: HEPARIN-D5W 25,000 U/250 ML 250 ML IV SCH (17:10)
--- NOTE | 2017-04-13 17:25 | EKG ---
Date Performed: 04/13/2017 Time Performed: 04:38:51 PTAGE: 56 years EKG: SINUS TACHYCARDIA LEFT ATRIAL ENLARGEMENT MODERATE ST DEPRESSION ABNORMAL ECG Compared to p rior tracing no significant change PREVIOUS TRACING : 04/13/2017 02.11 DOCTOR: Viet Wilson Interpretating Date/Time 04/13/2017 17:20:41
--- NOTE | 2017-04-13 17:31 | EKG ---
Date Performed: 04/13/2017 Time Performed: 02:11:01 PTAGE: 56 years EKG: SINUS TACHYCARDIA LEFT ATRIAL ENLARGEMENT MODERATE ST DEPRESSION Loss of R waves in the ant erior precordium is more pronounced than prior tracing. And inferolateral ST depression is new. Clini amparo correlation is strongly recommended ABNORMAL ECG PREVIOUS TRACING : 04/05/2017 06.13 DOCTOR: Viet Wilson Interpretating Date/Time 04/13/2017 17:29:58
[2017-04-13 20:10] LABS: BLOOD, URINE NEG (NEG); COMMENT (UR) CULT NOT INDICATED; CULTURE IF INDICATED CULT NOT INDICATED; GLUCOSE,URINE NEG (NEG); KETONE, URINE NEG (NEG); NITRITE,URINE NEG (NEG); URINE COLOR YELLOW (YELLW/STRAW)
[2017-04-13] MEDS: ATORVASTATIN 20 MG TAB PO SCH (21:14)
[2017-04-13] MEDS: MUPIROCIN 2% OINT 1 APPLIC/GM SYR EACH NARE SCH (21:15)
[2017-04-13] MEDS: SODIUM CHLORIDE 0.9% FLUSH 10 ML FLUSH IV FLUSH SCH (21:15)
--- NOTE | 2017-04-13 21:29 | RADRPT ---
EXAM DATE/TIME: 04/13/2017 19:38 [facility] COMPARISON: No previous studies available for comparison. INDICATIONS : PreOp cardiac surgery. MEDICAL HISTORY : Stroke. Hypercholesterolemia. Hypertension. Dizziness. Syncope. Anticoagulant therapy. Chest pain. CO PD. Pneumonia. Dyspnea. Gastroesophageal reflux disorder. Diabetes. Claustrophobia. Shingles. Pulmona ry embolisim. SURGICAL HISTORY : Eye surgery. Oral surgery. Circumcision. Left shoulder repair. ENCOUNTER: Initial ACUITY: 1 day PAIN SCORE: 1/10 LOCATION: Bilateral neck PEAK SYSTOLIC VELOCITIES (cm/sec): ICA/CCA RATIO: Right: 1.4 Left: 1.0 ICA: Right: 106.5 Left: 106.5 CCA: Right: 77.5 Left: 106.5 ECA: Right: 77.4 Left: 109.7 VERTEBRAL: Right: 42.7 antegrade Left: 47.1 antegrade Elevated flow velocities and ICA/CCA ratios have been found to correlate with increased degrees of vessel stenosis, calculated as percentage of diameter relative to a normal segment of distal ICA/CCA FINDINGS: RIGHT CAROTID: No significant stenosis is visualized. The waveforms are within normal limits. LEFT CAROTID: No significant stenosis is visualized. The waveforms are within normal limits. VERTEBRAL ARTERIES: Antegrade flow is seen in both vertebral arteries. MISCELLANEOUS: None. CONCLUSION: Minimal plaque identified at the carotid bulbs bilaterally. No evidence of hemodynami rock significant carotid stenosis. Canelo Rea MD on April 13, 2017 at 21:26 Board Certified Radiologist. This report was verified electronically.
--- NOTE | 2017-04-13 21:30 | RADRPT ---
EXAM DATE/TIME: 04/13/2017 20:10 [facility] COMPARISON: US LEG BILATERAL VENOUS DOPPLER, November 10, 2016, 13:04. INDICATIONS : PreOP cardiac surgery. MEDICAL HISTORY : Stroke. Hypercholesterolemia. Hypertension. Dizziness. Syncope. Anticoagulant therapy. Chest pain. CO PD. Pneumonia. Dyspnea. Gastroesophageal reflux disorder. Diabetes. Claustrophobia. Shingles. Pulmona ry embolisim. SURGICAL HISTORY : Eye surgery. Oral surgery. Circumcision. Left shoulder repair. ENCOUNTER: Initial ACUITY: 1 day PAIN SCORE: 1/10 LOCATION: Bilateral legs. TECHNIQUE: Venous ultrasound of the left and right leg was performed from the inguinal ligament to the proximal calf. Real-time, color Doppler and spectral tracing, compression and augmentation techniques were us ed. FINDINGS: RIGHT LEG: There is normal compressibility of the deep venous system from the inguinal region to the proximal ca lf. No echogenic clot is seen in the lumen of the common femoral, femoral, popliteal, and posterior tibial veins. There is a normal response of the venous system to proximal and distal augmentation an d respiration. LEFT LEG: There is normal compressibility of the deep venous system from the inguinal region to the proximal ca lf. No echogenic clot is seen in the lumen of the common femoral, femoral, popliteal, and posterior tibial veins. There is a normal response of the venous system to proximal and distal augmentation an d respiration. CONCLUSION: No evidence of lower extremity DVT on the right or left. Canelo Rea MD on April 13, 2017 at 21:27 Board Certified Radiologist. This report was verified electronically.
[2017-04-14] VITALS (11 sets, daily range): BP systolic 93–138; BP diastolic 54–77; PULSE 52–94; RESP 16–18; TEMP 97.8–98.4; O2SAT 93–99
[2017-04-14 00:17] LABS: APTT (PATIENT) 34.6 SEC (24.3-30.1)
[2017-04-14] MEDS: HEPARIN SODIUM - IV 10,000 UNITS/10 ML VIAL IV PRN ×2 (00:21→20:28)
[2017-04-14] MEDS: FUROSEMIDE 40 MG/4 ML VIAL IV PUSH SCH ×3 (02:54→18:28)
[2017-04-14] MEDS: RESP: ALBUTEROL 2.5 MG/IPRATROPIUM 0.5 MG NEB (SCH) INH ×4 (03:32→21:12)
[2017-04-14] MEDS: INSULIN NovoLIN REGULAR SUPPLEMENTAL SCALE SQ SCH ×6 (04:00→20:00)
[2017-04-14] MEDS: CHLORHEXIDINE GLUCONATE 2 % 1 PACK (2 CLOTHS) TOP SCH (04:00)
[2017-04-14] MEDS ORDERED: VENL50TA PO (06:11)
[2017-04-14] MEDS: HYDROmorphone HCL PF 1 MG/ML VIAL IV PUSH PRN ×4 (06:18→22:35)
[2017-04-14 06:42] LABS: BLOOD GAS CARBOXYHEMOGLOBIN 1.3 % (0-4); BLOOD GAS HCO3 29 mmol/L (22-26); BLOOD GAS METHEMOGLOBIN 1.1 % (0-2); BLOOD GAS O2 HGB SATURATION 95 % (90-100); BLOOD GAS OXYGEN CONTENT 14.5 Vol % (12.0-20.0); BLOOD GAS PCO2 52 mmHg (38-42); BLOOD GAS PO2 98 mmHg (61-120); BLOOD GAS TOTAL HGB 10.8 G/DL (12.0-16.0); CRITICAL VALUE YES; DRAW SITE RT RADIAL; LITER FLOW 13 L/M; NUMBER OF ARTERIAL PUNCTURES 1; OXYGEN DEVICE PARTIAL REBREATHER; STAT YES; TEMP CORR TO 98.6; ULNAR PULSE PRESENT
--- NOTE | 2017-04-14 07:22 | RADRPT ---
EXAM DATE/TIME: 04/13/2017 20:08 [facility] COMPARISON: No previous studies available for comparison. INDICATIONS : Preop cardiac surgery. MEDICAL HISTORY : Stroke. Hypercholesterolemia. Hypertension. Dizziness. Syncope. Anticoagulant therapy. Chest pain. CO PD. Pneumonia. Dyspnea. Gastroesophageal reflux disorder. Diabetes. Claustrophobia. Shingles. Pulmona ry embolisim. SURGICAL HISTORY : Eye surgery. Oral surgery. Circumcision. Left shoulder repair. ENCOUNTER: Initial ACUITY: 1 day PAIN SCORE: 1/10 LOCATION: Bilateral legs. GREATER SAPHENOUS VEIN THIGH: PROXIMAL: Right 7 mm Left 9 mm MID: Right 3 mm Left 3 mm DISTAL: Right 2 mm Left 2 mm CALF: PROXIMAL: Right 2 mm Left 2 mm MID: Right 2 mm Left 2 mm DISTAL: Right 2 mm Left 2 mm FINDINGS: The venous system of the lower extremities are patent by color Doppler imaging. Measurements of the leg veins (in mm) are listed above. CONCLUSION: Venous mapping study as described. Samir Nelson MD on April 14, 2017 at 7:20 Board Certified Radiologist. This report was verified electronically.
[2017-04-14 07:25] LABS: HEMATOCRIT 32.3 % (39.0-51.0); MEAN CELL VOLUME 90.7 FL (80.0-100.0); MEAN CORPUSCULAR HGB CONC 34.2 % (32.0-36.0); PLATELET COUNT 203 TH/MM3 (150-450); RED BLOOD COUNT 3.56 MIL/MM3 (4.50-5.90); RED CELL DISTRIBUTION WIDTH 13.6 % (11.6-17.2); REVIEW FLAG FINAL; WHITE BLOOD COUNT 7.5 TH/MM3 (4.0-11.0)
[2017-04-14 08:12] LABS: BICARBONATE 31.8 MEQ/L (21.0-32.0); HDL CHOLESTEROL 36.5 MG/DL (40.0-60.0); POTASSIUM 4.1 MEQ/L (3.5-5.1)
--- NOTE | 2017-04-14 08:12 | HHI.CCPN ---
Subjective Remarks/Hospital Course This is a 56yM with history of prior stroke and prior PE who presents with 1 day history of shortness of breath which has been worsening since earlier in the day. He endorses dyspnea on exertion. He originally denied chest pain on admission, but over the last hour or two has also developed substernal chest pain which is non-radiating. he states he has never had a heart attack before. Remainder of the ROS is negative unless otherwise stated. He had a prior PE back in September, but he states he stopped taking his anticoagulation a few weeks ago. In the ER he was found to have a room air saturation of 60%. He was placed on a NRB. He was given 80mg lasix iv x 1. His BNP is 662, trop 2.58. He refused BiPAP and then his NRB. on my evaluation he is on 6L o2 by SC with spo2 92%. He has additionally refused little catheter placement. 04/14: Anxious overnight. Remained on pNRB overnight, no down to 50% VM. Echo- Estimated ejection fraction in the range of 35-40%. limited LV wall motion assessment moderate MR. Moderate TR. Moderate pulmonary hypertension present ( range 50-60 mmHg). Cardiac cath: 04/13 Severe multivessel disease. CTS Dr. Reid planning on CABG mid week. CXR unchanged on my review. Intermittent chest pain, but improved Objective Vital Signs Date Time Temp Pulse Resp B/P Pulse Ox O2 Delivery O2 Flow Rate FiO2 04/14/17 08:03 97.9 69 18 115/75 97 04/14/17 03:00 Partial Non-Rebreather 15.00 Intake and Output 04/13/17 04/13/17 04/14/17 08:00 16:00 00:00 Intake Total 460 ml Output Total 1650 ml Balance -1190 ml Result Diagram: 04/14/17 0540 04/13/17 0130 Other Results Laboratory Tests Test 04/14/17 05:40 Blood Gas Puncture Site RT RADIAL Blood Gas Patient Temperature 98.6 Blood Gas HCO3 29 mmol/L (22-26) Blood Gas Base Excess 4.0 mmol/L (-2-2) Blood Gas Oxygen Saturation 95 % (90-100) Arterial Blood pH 7.37 (7.380-7.420) Arterial Blood Partial 52 mmHg (38-42) Pressure CO2 Arterial Blood Partial 98 mmHg Pressure O2 (61-120) Arterial Blood Oxygen Content 14.5 Vol % (12.0-20.0) Arterial Blood 1.3 % (0-4) Carboxyhemoglobin Arterial Blood Methemoglobin 1.1 % (0-2) Blood Gas Hemoglobin 10.8 G/DL (12.0-16.0) 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 Blood Gas Liter Flow 13 L/M Imaging Last Impressions Chest X-Ray 04/13/17 0114 Signed Impressions: Service Date/Time: Thursday, April 13, 2017 01:24 - CONCLUSION: Bibasilar patchy infiltrates greater right lower lobe. Holden Lin MD Objective Remarks GENERAL: Middle-aged male, lying in bed, in mild distress due to dyspnea and anxiety HEENT: Normocephalic. Atraumatic. Pupils equal, round, reactive, conjugate. Mucous membranes are moist NECK: Trachea is midline. There is no JVD. CHEST: Air entry equal bilaterally with scattered crackles, SPO2 98% on pNRB CARDIOVASCULAR: S1-S2 normal. I cannot appreciate any murmurs (Moderate MR on Echo) ABDOMEN: Soft, nontender, nondistended. No guarding. MUSCULOSKELETAL: Pulses 2+. No peripheral edema. NEUROLOGICAL: Alert awake oriented no focal deficits A/P Assessment and Plan Assessment: 56yM with CHF exacerbation, and NSTEMI, and hypoxemia. Cardiac cath showed severe multivessel coronary artery disease, CTS planning CABG mid week. Will continue heparin, asa, beta blockers and aggressive forced diuresis. BiPAP PN Acute Hypoxic and Hypercarbic Respiratory Failure -- wean oxygen for spo2 > 90% -- BiPAP, as tolerated. -- Wean from pNRB to VM -- DuoNeb every 6 hours and when necessary -- EzPAP, Acapella CHF exacerbation Ischemic cardiomyopathy -- 2d echo-EF 35-40%, mod MR -- lasix 80mg iv q6h NSTEMI Moderate MR -- dilaudid prn for chest pain -- ntg SL PRN -- Scheduled Coreg -- anticoagulate with heparin drip -- ASA -- Cardiology Dr. Burris- Cath shows severe multivessel CAD -- Dr. Reid from CTS following, plan for CABG mid week per him. He is aware of moderate MR COPD -- nebs, O2 Hypokalemia -- ICU electrolyte protocol -- aggressive replacement. -- daily bmp History of prior Pulmonary Emboli -- heparin drip cardiac diet as tolerated SCDs, Protonix CCT 32 MIN Christal Masters MD Apr 14, 2017 08:12
--- NOTE | 2017-04-14 08:45 | RADRPT ---
EXAM DATE/TIME: 04/14/2017 08:07 [facility] COMPARISON: CHEST SINGLE AP, April 13, 2017, 1:24. INDICATIONS : Shortness of breath and pulmonary infiltrates.. MEDICAL HISTORY : None. SURGICAL HISTORY : None. ENCOUNTER: Subsequent ACUITY: 3 days PAIN SCORE: 5/10 LOCATION: Bilateral chest FINDINGS: A single AP erect portable view of the chest was obtained. This again demonstrates hazy opacity in th e infrahilar regions and both lung bases with blunting of the costophrenic angles. The heart size is at the upper limits of normal. The bony thorax is stable with old fracture deformity of the right dis pablo clavicle and surgical change involving the left clavicle. Normal overlying electrocardiogram lead s. CONCLUSION: No significant change. Hazy opacity remains at the lung bases with apparent small effusions. Samir Nelson MD on April 14, 2017 at 8:40 Board Certified Radiologist. This report was verified electronically.
[2017-04-14] MEDS: CARVEDILOL 6.25 MG TAB PO SCH ×2 (09:23→20:29)
[2017-04-14] MEDS: DOCUSATE SODIUM 50 MG/SENNA 8.6 MG TAB PO SCH ×2 (09:23→20:28)
[2017-04-14] MEDS: ASPIRIN 325 MG TAB PO SCH (09:23)
[2017-04-14] MEDS: SODIUM CHLORIDE 0.9% FLUSH 10 ML FLUSH IV FLUSH SCH ×2 (09:24→20:29)
[2017-04-14] MEDS: MUPIROCIN 2% OINT 1 APPLIC/GM SYR EACH NARE SCH ×2 (09:24→20:29)
[2017-04-14 09:42] LABS: HEMOGLOBIN A1a 1.2 %; HEMOGLOBIN A1b 2.3 %; HEMOGLOBIN Ao 80.5 %; HEMOGLOBIN LA1C 2.7 %; HEMOGLOBIN P3 4.9 %
--- NOTE | 2017-04-14 09:52 | PD.CARD.PN ---
Subjective Subjective Remarks PT without complaints Objective Medications Current Medications Medications (Trade) Dose Ordered Sig/Dario Route Start Time Stop Time Status Last Admin Magnesium Oxide 800 mg 800 mg UNSCH PRN PO 04/13/17 03:45 Magnesium Sulfate 4 gm/Sodium Chloride 100 ml @ 50 mls/hr UNSCH PRN IV 04/13/17 03:45 Magnesium Sulfate 2 gm/Sodium Chloride 100 ml @ 50 mls/hr UNSCH PRN IV 04/13/17 03:45 Potassium Chloride 100 ml @ 50 mls/hr Q2H PRN IV 04/13/17 03:45 Potassium Chloride 100 ml @ 50 mls/hr Q2H PRN IV 04/13/17 03:45 Potassium Chloride 100 ml @ 50 mls/hr Q2H PRN IV 04/13/17 03:45 (KCl 40 Meq Premix Inj) 100 ml @ 25 mls/hr UNSCH PRN IV 04/13/17 03:45 (K-Phos) 2,000 mg Q4H PRN PO 04/13/17 03:45 Potassium Phosphate 2000 mg 2,000 mg UNSCH PRN PO/TUBE 04/13/17 03:45 Potassium Phosphate 30 mmol/ Sodium Chloride 260 ml @ 42 mls/hr UNSCH PRN IV 04/13/17 03:45 (Sodium Phosphate Inj/NS 250 ml Inj) 250 ml @ 42 mls/hr UNSCH PRN IV 04/13/17 03:45 (D50w (Vial) Inj) 25 ml UNSCH PRN IV PUSH 04/13/17 03:45 (NovoLIN R SUPPLEMENTAL SCALE) 1 Q4HR SQ 04/13/17 04:00 04/14/17 00:00 (Zofran Inj) 4 mg Q6H PRN IV 04/13/17 03:45 Miscellaneous Information 1 Q361D XX 04/13/17 03:45 (Chlorhexidine 2% Cloth) 3 pack Taper DAILY@04 TOP 04/13/17 04:00 04/09/18 03:59 04/14/17 04:00 (Chlorhexidine 2% Cloth) 3 pack UNSCH PRN TOP 04/13/17 03:45 (Jasmyne-Colace) 1 tab BID PO 04/13/17 09:00 04/14/17 09:23 (Aspirin) 325 mg DAILY PO 04/13/17 09:00 04/14/17 09:23 (Dilaudid Pf Inj) 0.5 mg Q4H PRN IV PUSH 04/13/17 04:15 04/14/17 06:18 Miscellaneous Information HOLD METFORMIN FOR... Q24H .XX 04/13/17 03:15 04/15/17 03:14 (Coreg) 6.25 mg Q12HR PO 04/13/17 09:00 04/14/17 09:23 (Lipitor) 20 mg HS PO 04/13/17 21:00 04/13/17 21:14 Nitroglycerin 0.4 mg 0.4 mg Q5M PRN SL 04/13/17 07:45 (NS 1000 ml Inj) 1,000 ml @ 30 mls/hr Q24H IV 04/13/17 10:00 04/18/17 09:59 (NS Flush) 2 ml BID IV FLUSH 04/13/17 21:00 04/14/17 09:24 (NS Flush) 2 ml UNSCH PRN IV FLUSH 04/13/17 16:30 (Bactroban Nasal 2% Oint) 1 applic BID EACH NARE 04/13/17 21:00 04/18/17 20:59 04/14/17 09:24 (Heparin Inj) 5,000 units UNSCH PRN IV 04/13/17 22:30 Heparin Sodium (Porcine) 2500 units 2,500 units UNSCH PRN IV 04/13/17 22:30 04/14/17 00:21 (Heparin-D5W Inj) 250 ml @ 0 mls/hr TITRATE IV 04/13/17 16:30 04/13/17 17:10 (Roxicodone) 10 mg Q6H PRN PO 04/13/17 18:15 04/14/17 09:24 (Lasix Inj) 40 mg Q8H IV PUSH 04/14/17 11:00 04/14/17 09:23 (Ativan) 0.5 mg Q6H PRN PO 04/14/17 08:45 Vital Signs / I&O Vital Signs Date Time Temp Pulse Resp B/P Pulse Ox O2 Delivery O2 Flow Rate FiO2 04/14/17 08:03 97.9 69 18 115/75 97 04/14/17 07:50 16 04/14/17 07:40 93 Venturi Mask 50 04/14/17 03:00 96 Partial Non-Rebreather 15.00 04/14/17 03:00 80 04/14/17 03:00 98.4 63 18 138/68 94 04/13/17 23:00 97.7 80 18 117/69 94 04/13/17 23:00 94 Partial Non-Rebreather 15.00 04/13/17 23:00 80 04/13/17 21:57 99 Non-Rebreather 15.00 04/13/17 19:00 100 Non-Rebreather 15.00 04/13/17 19:00 67 04/13/17 19:00 97.6 88 18 111/76 100 04/13/17 15:24 96 Non-Rebreather 10.00 04/13/17 15:24 74 04/13/17 15:23 98.1 71 16 112/70 97 04/13/17 13:32 77 20 107/68 95 04/13/17 12:00 95 Non-Rebreather 10.00 04/13/17 12:00 77 04/13/17 12:00 98.0 83 20 102/71 95 04/13/17 11:00 97.8 77 20 97/76 99 I/O 04/13/17 04/13/17 04/13/17 04/14/17 04/14/17 04/14/17 07:00 15:00 23:00 07:00 15:00 23:00 Intake Total 460 ml 480 ml Output Total 1650 ml 745 ml Balance -1190 ml -265 ml Intake Oral 460 ml 480 ml Output Urine Total 1650 ml 745 ml # Bowel Movements 0 1 Physical Exam GENERAL: Well developed, well nourished. No acute distress. HEENT: Jugular venous pressure is normal. CHEST: Lungs rales to auscultation bilaterally. Unlabored respiratory effort. CARDIAC: Regular rate and rhythm without 2/6 systolic murmur ABDOMEN: Soft, nontender, no hepatosplenomegaly. Bowel sounds present. EXTREMITIES: No clubbing, cyanosis, or edema. Laboratory Laboratory Tests Test 04/13/17 04/13/17 04/13/17 04/14/17 13:50 18:05 23:50 05:40 Nasal Screen MRSA (PCR) MRSA NOT DETECTED Urine Color YELLOW Urine Turbidity CLEAR Urine pH 5.0 Urine Specific [place] 1.024 Urine Protein NEG mg/dL Urine Glucose (UA) NEG mg/dL Urine Ketones NEG mg/dL Urine Occult Blood NEG Urine Nitrite NEG Urine Bilirubin NEG Urine Urobilinogen LESS THAN 2.0 MG/DL Urine Leukocyte Esterase NEG Urine RBC LESS THAN 1 /hpf Urine WBC 1 /hpf Microscopic Urinalysis Comment CULT NOT INDICATED Activated Partial 34.6 SEC Thromboplast Time Troponin I 4.08 NG/ML Blood Type B POSITIVE Antibody Screen NEGATIVE Blood Bank Comment White Blood Count 7.5 TH/MM3 Red Blood Count 3.56 MIL/MM3 Hemoglobin 11.0 GM/DL Hematocrit 32.3 % Mean Corpuscular Volume 90.7 FL Mean Corpuscular Hemoglobin 31.0 PG Mean Corpuscular Hemoglobin 34.2 % Concent Red Cell Distribution Width 13.6 % Platelet Count 203 TH/MM3 Mean Platelet Volume 9.9 FL Blood Gas Puncture Site RT RADIAL Blood Gas Patient Temperature 98.6 Blood Gas HCO3 29 mmol/L Blood Gas Base Excess 4.0 mmol/L Blood Gas Oxygen Saturation 95 % Arterial Blood pH 7.37 Arterial Blood Partial 52 mmHg Pressure CO2 Arterial Blood Partial 98 mmHg Pressure O2 Arterial Blood Oxygen Content 14.5 Vol % Arterial Blood 1.3 % Carboxyhemoglobin Arterial Blood Methemoglobin 1.1 % Blood Gas Hemoglobin 10.8 G/DL 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 Blood Gas Liter Flow 13 L/M Sodium Level 140 MEQ/L Potassium Level 4.1 MEQ/L Chloride Level 99 MEQ/L Carbon Dioxide Level 31.8 MEQ/L Anion Gap 9 MEQ/L Blood Urea Nitrogen 31 MG/DL Creatinine 1.16 MG/DL Estimat Glomerular Filtration 65 ML/MIN Rate Random Glucose 113 MG/DL Calcium Level 8.6 MG/DL Triglycerides Level 138 MG/DL Cholesterol Level 150 MG/DL LDL Cholesterol 86 MG/DL HDL Cholesterol 36.5 MG/DL Cholesterol/HDL Ratio 4.10 RATIO Test 04/14/17 06:40 Activated Partial 42.0 SEC Thromboplast Time Imaging Last 72 hours Impressions Chest X-Ray 04/14/17 0000 Signed Impressions: Service Date/Time: Friday, April 14, 2017 08:07 - CONCLUSION: No significant change. Hazy opacity remains at the lung bases with apparent small effusions. Samir Nelson MD Chest X-Ray 04/13/17 0114 Signed Impressions: Service Date/Time: Thursday, April 13, 2017 01:24 - CONCLUSION: Bibasilar patchy infiltrates greater right lower lobe. Holden Lin MD Lower Extremity Ultrasound 04/13/17 Signed Impressions: Service Date/Time: Thursday, April 13, 2017 20:08 - CONCLUSION: Venous mapping study as described. Samir Nelson MD Lower Extremity Ultrasound 04/13/17 Signed Impressions: Service Date/Time: Thursday, April 13, 2017 20:10 - CONCLUSION: No evidence of lower extremity DVT on the right or left. Canelo Rea MD Carotid Artery Ultrasound 04/13/17 Signed Impressions: Service Date/Time: Thursday, April 13, 2017 19:38 - CONCLUSION: Minimal plaque identified at the carotid bulbs bilaterally. No evidence of hemodynamically significant carotid stenosis. Canelo Rea MD CT Angiography 04/13/17 Signed Impressions: Service Date/Time: Thursday, April 13, 2017 03:11 - CONCLUSION: 1. No evidence for pulmonary embolism. 2. Patchy groundglass densities with bibasilar consolidation and bilateral pleural effusions, likely CHF. 3. Coronary artery calcifications. Holden Lin MD Assessment and Plan Assessment and Plan NSTEMI- s/p cath with severe multivessel disease -CT surg consult appreciated -restart heparin Acute systolic heart failure- EF 40% optimize meds Lipids- statin COPD- Riya Burris MD Apr 14, 2017 09:52
[2017-04-14] MEDS: SODIUM CHLOR 0.9% 1000 ML INJ 1,000 ML IV SCH (10:00)
--- NOTE | 2017-04-14 10:54 | PD.CAR.PN ---
CVT Progress Note Subjective/Hospital Course: Denies chest pain. somewhat improved with decreased oxygen requirements. Objective: Vital Signs Date Time Temp Pulse Resp B/P Pulse Ox O2 Delivery O2 Flow Rate FiO2 04/14/17 10:19 14 04/14/17 08:03 97.9 69 18 115/75 97 04/14/17 07:50 16 04/14/17 07:40 93 Venturi Mask 50 04/14/17 07:15 67 04/14/17 07:15 97 Venturi Mask 6.00 50 04/14/17 03:00 96 Partial Non-Rebreather 15.00 04/14/17 03:00 80 04/14/17 03:00 98.4 63 18 138/68 94 04/13/17 23:00 97.7 80 18 117/69 94 04/13/17 23:00 94 Partial Non-Rebreather 15.00 04/13/17 23:00 80 04/13/17 21:57 99 Non-Rebreather 15.00 04/13/17 19:00 100 Non-Rebreather 15.00 04/13/17 19:00 67 04/13/17 19:00 97.6 88 18 111/76 100 04/13/17 15:24 96 Non-Rebreather 10.00 04/13/17 15:24 74 04/13/17 15:23 98.1 71 16 112/70 97 04/13/17 13:32 77 20 107/68 95 04/13/17 12:00 95 Non-Rebreather 10.00 04/13/17 12:00 77 04/13/17 12:00 98.0 83 20 102/71 95 04/13/17 11:00 97.8 77 20 97/76 99 Labs: Laboratory Tests Test 04/13/17 04/14/17 04/14/17 23:50 05:40 06:40 Activated Partial 34.6 SEC 42.0 SEC Thromboplast Time (24.3-30.1) (24.3-30.1) Troponin I 4.08 NG/ML (0.02-0.05) Blood Type B POSITIVE Antibody Screen NEGATIVE Blood Bank Comment White Blood Count 7.5 TH/MM3 (4.0-11.0) Red Blood Count 3.56 MIL/MM3 (4.50-5.90) Hemoglobin 11.0 GM/DL (13.0-17.0) Hematocrit 32.3 % (39.0-51.0) Mean Corpuscular Volume 90.7 FL (80.0-100.0) Mean Corpuscular Hemoglobin 31.0 PG (27.0-34.0) Mean Corpuscular Hemoglobin 34.2 % Concent (32.0-36.0) Red Cell Distribution Width 13.6 % (11.6-17.2) Platelet Count 203 TH/MM3 (150-450) Mean Platelet Volume 9.9 FL (7.0-11.0) Blood Gas Puncture Site RT RADIAL Blood Gas Patient Temperature 98.6 Blood Gas HCO3 29 mmol/L (22-26) Blood Gas Base Excess 4.0 mmol/L (-2-2) Blood Gas Oxygen Saturation 95 % (90-100) Arterial Blood pH 7.37 (7.380-7.420) Arterial Blood Partial 52 mmHg (38-42) Pressure CO2 Arterial Blood Partial 98 mmHg Pressure O2 (61-120) Arterial Blood Oxygen Content 14.5 Vol % (12.0-20.0) Arterial Blood 1.3 % (0-4) Carboxyhemoglobin Arterial Blood Methemoglobin 1.1 % (0-2) Blood Gas Hemoglobin 10.8 G/DL (12.0-16.0) 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 Blood Gas Liter Flow 13 L/M Sodium Level 140 MEQ/L (136-145) Potassium Level 4.1 MEQ/L (3.5-5.1) Chloride Level 99 MEQ/L (98-107) Carbon Dioxide Level 31.8 MEQ/L (21.0-32.0) Anion Gap 9 MEQ/L (5-15) Blood Urea Nitrogen 31 MG/DL (7-18) Creatinine 1.16 MG/DL (0.60-1.30) Estimat Glomerular Filtration 65 ML/MIN (>89) Rate Random Glucose 113 MG/DL (74-106) Calcium Level 8.6 MG/DL (8.5-10.1) Triglycerides Level 138 MG/DL (42-150) Cholesterol Level 150 MG/DL (120-200) LDL Cholesterol 86 MG/DL (0-99) HDL Cholesterol 36.5 MG/DL (40.0-60.0) Cholesterol/HDL Ratio 4.10 RATIO Result Diagram: 04/14/17 0540 04/14/17 0540 Imaging: Last Impressions Chest X-Ray 04/14/17 Signed Impressions: Service Date/Time: Friday, April 14, 2017 08:07 - CONCLUSION: No significant change. Hazy opacity remains at the lung bases with apparent small effusions. Samir Nelson MD Lower Extremity Ultrasound 04/13/17 Signed Impressions: Service Date/Time: Thursday, April 13, 2017 20:08 - CONCLUSION: Venous mapping study as described. Samir Nelson MD Carotid Artery Ultrasound 04/13/17 Signed Impressions: Service Date/Time: Thursday, April 13, 2017 19:38 - CONCLUSION: Minimal plaque identified at the carotid bulbs bilaterally. No evidence of hemodynamically significant carotid stenosis. Canelo Rea MD CT Angiography 04/13/17 Signed Impressions: Service Date/Time: Thursday, April 13, 2017 03:11 - CONCLUSION: 1. No evidence for pulmonary embolism. 2. Patchy groundglass densities with bibasilar consolidation and bilateral pleural effusions, likely CHF. 3. Coronary artery calcifications. Holden Lin MD Cardiovascular: RRR Telemetry: NSR Pulmonary: Few crackles bilat GI/: NABS, NT Plan: ECHO reviewed. Patient has moderate MR with no LAE. He continues to improve from his [place] Awaiting PFTs Plan CABG this week. Callie Falcon MD Apr 14, 2017 10:54
[2017-04-14] MEDS: PANTOPRAZOLE SOD 40 MG DELAYED RELEASE TAB PO SCH (11:44)
[2017-04-14 16:47] LABS: APTT (PATIENT) 36.9 SEC (24.3-30.1)
[2017-04-14] MEDS: ATORVASTATIN 20 MG TAB PO SCH (20:29)
[2017-04-14] MEDS: LORazepam 0.5 MG TAB PO PRN (20:29)
[2017-04-15] VITALS (9 sets, daily range): BP systolic 116–135; BP diastolic 59–82; PULSE 60–78; RESP 12–20; TEMP 97.3–98.3; O2SAT 92–98
[2017-04-15] MEDS: INSULIN NovoLIN REGULAR SUPPLEMENTAL SCALE SQ SCH ×7 (00:20→23:38)
[2017-04-15 02:21] LABS: HEMATOCRIT 32.3 % (39.0-51.0); MEAN CELL VOLUME 91.1 FL (80.0-100.0); MEAN CORPUSCULAR HGB CONC 34.1 % (32.0-36.0); PLATELET COUNT 219 TH/MM3 (150-450); RED BLOOD COUNT 3.55 MIL/MM3 (4.50-5.90); RED CELL DISTRIBUTION WIDTH 13.7 % (11.6-17.2); REVIEW FLAG FINAL; WHITE BLOOD COUNT 6.6 TH/MM3 (4.0-11.0)
[2017-04-15 02:31] LABS: APTT (PATIENT) 49.4 SEC (24.3-30.1)
[2017-04-15 02:42] LABS: BICARBONATE 34.4 MEQ/L (21.0-32.0); POTASSIUM 4.2 MEQ/L (3.5-5.1)
[2017-04-15] MEDS: FUROSEMIDE 40 MG/4 ML VIAL IV PUSH SCH (02:56)
[2017-04-15] MEDS: HYDROmorphone HCL PF 1 MG/ML VIAL IV PUSH PRN ×4 (02:57→19:58)
[2017-04-15] MEDS: RESP: ALBUTEROL 2.5 MG/IPRATROPIUM 0.5 MG NEB (SCH) INH ×4 (03:27→21:13)
[2017-04-15] MEDS: LORazepam 0.5 MG TAB PO PRN ×2 (03:34→10:54)
[2017-04-15] MEDS: CHLORHEXIDINE GLUCONATE 2 % 1 PACK (2 CLOTHS) TOP SCH (04:00)
--- NOTE | 2017-04-15 07:41 | PD.CARD.PN ---
Subjective Subjective Remarks Pt without complaints Objective Medications Current Medications Medications (Trade) Dose Ordered Sig/Dario Route Start Time Stop Time Status Last Admin Magnesium Oxide 800 mg 800 mg UNSCH PRN PO 04/13/17 03:45 Magnesium Sulfate 4 gm/Sodium Chloride 100 ml @ 50 mls/hr UNSCH PRN IV 04/13/17 03:45 Magnesium Sulfate 2 gm/Sodium Chloride 100 ml @ 50 mls/hr UNSCH PRN IV 04/13/17 03:45 Potassium Chloride 100 ml @ 50 mls/hr Q2H PRN IV 04/13/17 03:45 Potassium Chloride 100 ml @ 50 mls/hr Q2H PRN IV 04/13/17 03:45 Potassium Chloride 100 ml @ 50 mls/hr Q2H PRN IV 04/13/17 03:45 (KCl 40 Meq Premix Inj) 100 ml @ 25 mls/hr UNSCH PRN IV 04/13/17 03:45 (K-Phos) 2,000 mg Q4H PRN PO 04/13/17 03:45 Potassium Phosphate 2000 mg 2,000 mg UNSCH PRN PO/TUBE 04/13/17 03:45 Potassium Phosphate 30 mmol/ Sodium Chloride 260 ml @ 42 mls/hr UNSCH PRN IV 04/13/17 03:45 (Sodium Phosphate Inj/NS 250 ml Inj) 250 ml @ 42 mls/hr UNSCH PRN IV 04/13/17 03:45 (D50w (Vial) Inj) 25 ml UNSCH PRN IV PUSH 04/13/17 03:45 (NovoLIN R SUPPLEMENTAL SCALE) 1 Q4HR SQ 04/13/17 04:00 04/15/17 00:20 (Zofran Inj) 4 mg Q6H PRN IV 04/13/17 03:45 Miscellaneous Information 1 Q361D XX 04/13/17 03:45 (Chlorhexidine 2% Cloth) 3 pack Taper DAILY@04 TOP 04/13/17 04:00 04/09/18 03:59 04/14/17 04:00 (Chlorhexidine 2% Cloth) 3 pack UNSCH PRN TOP 04/13/17 03:45 (Jasmyne-Colace) 1 tab BID PO 04/13/17 09:00 04/14/17 20:28 (Aspirin) 325 mg DAILY PO 04/13/17 09:00 04/14/17 09:23 (Dilaudid Pf Inj) 0.5 mg Q4H PRN IV PUSH 04/13/17 04:15 04/15/17 02:57 (Coreg) 6.25 mg Q12HR PO 04/13/17 09:00 04/14/17 20:29 (Lipitor) 20 mg HS PO 04/13/17 21:00 04/14/17 20:29 Nitroglycerin 0.4 mg 0.4 mg Q5M PRN SL 04/13/17 07:45 (NS 1000 ml Inj) 1,000 ml @ 30 mls/hr Q24H IV 04/13/17 10:00 04/18/17 09:59 (NS Flush) 2 ml BID IV FLUSH 04/13/17 21:00 04/14/17 20:29 (NS Flush) 2 ml UNSCH PRN IV FLUSH 04/13/17 16:30 (Bactroban Nasal 2% Oint) 1 applic BID EACH NARE 04/13/17 21:00 04/18/17 20:59 04/14/17 20:29 (Heparin Inj) 5,000 units UNSCH PRN IV 04/13/17 22:30 Heparin Sodium (Porcine) 2500 units 2,500 units UNSCH PRN IV 04/13/17 22:30 04/14/17 20:28 (Heparin-D5W Inj) 250 ml @ 0 mls/hr TITRATE IV 04/13/17 16:30 04/13/17 17:10 (Roxicodone) 10 mg Q6H PRN PO 04/13/17 18:15 04/15/17 06:39 (Lasix Inj) 40 mg Q8H IV PUSH 04/14/17 11:00 04/15/17 02:56 (Ativan) 0.5 mg Q6H PRN PO 04/14/17 08:45 04/15/17 03:34 (Protonix) 40 mg DAILY PO 04/14/17 11:00 04/14/17 11:44 Vital Signs / I&O Vital Signs Date Time Temp Pulse Resp B/P Pulse Ox O2 Delivery O2 Flow Rate FiO2 04/15/17 00:00 97.6 61 20 120/70 95 04/15/17 00:00 94 Venturi Mask 4.00 04/14/17 21:12 98 Nasal Cannula 4.00 04/14/17 20:00 94 Venturi Mask 4.00 04/14/17 20:00 97.8 52 18 127/77 99 04/14/17 20:00 94 04/14/17 18:50 16 04/14/17 17:13 14 04/14/17 15:14 98.2 73 18 102/65 95 04/14/17 15:02 95 Nasal Cannula 5.00 04/14/17 15:02 72 04/14/17 12:03 61 04/14/17 11:56 98.0 71 16 93/54 97 04/14/17 11:54 94 Nasal Cannula 5.00 04/14/17 11:54 57 04/14/17 08:03 97.9 69 18 115/75 97 04/14/17 07:40 93 Venturi Mask 50 I/O 04/14/17 04/14/17 04/14/17 04/15/17 04/15/17 04/15/17 06:59 14:59 22:59 06:59 14:59 22:59 Intake Total 480 ml 360 ml Output Total 745 ml 500 ml Balance -265 ml -140 ml Intake Oral 480 ml 360 ml Output Urine Total 745 ml 500 ml # Bowel Movements 1 Physical Exam GENERAL: Well developed, well nourished. No acute distress. HEENT: Jugular venous pressure is normal. CHEST: Lungs rales to auscultation bilaterally. Unlabored respiratory effort. CARDIAC: Regular rate and rhythm without 2/6 systolic murmur ABDOMEN: Soft, nontender, no hepatosplenomegaly. Bowel sounds present. EXTREMITIES: No clubbing, cyanosis, or edema. Laboratory Laboratory Tests Test 04/14/17 04/15/17 15:41 02:10 Activated Partial 36.9 SEC 49.4 SEC Thromboplast Time White Blood Count 6.6 TH/MM3 Red Blood Count 3.55 MIL/MM3 Hemoglobin 11.0 GM/DL Hematocrit 32.3 % Mean Corpuscular Volume 91.1 FL Mean Corpuscular Hemoglobin 31.0 PG Mean Corpuscular Hemoglobin 34.1 % Concent Red Cell Distribution Width 13.7 % Platelet Count 219 TH/MM3 Mean Platelet Volume 8.3 FL Sodium Level 139 MEQ/L Potassium Level 4.2 MEQ/L Chloride Level 97 MEQ/L Carbon Dioxide Level 34.4 MEQ/L Anion Gap 8 MEQ/L Blood Urea Nitrogen 36 MG/DL Creatinine 1.29 MG/DL Estimat Glomerular Filtration 57 ML/MIN Rate Random Glucose 118 MG/DL Calcium Level 8.3 MG/DL Assessment and Plan Assessment and Plan NSTEMI- s/p cath with severe multivessel disease -CT surg --awaiting CABG after optimization - on heparin heparin Acute systolic heart failure- EF 40% - pt still has rales but Cr increasing => back off diuretics, optimize COPD Lipids- statin COPD- per sales and service specialist Riya Burris MD Apr 15, 2017 07:41
[2017-04-15] MEDS ORDERED: PILL SPLITTER OTHER PRN (08:00)
--- NOTE | 2017-04-15 08:11 | PD.TRANSFR ---
Transfer Summary Admission Date Apr 13, 2017 at 03:39 Admitting Diagnosis Hypoxic Repiratory failure. Diagnoses: (1) Acute respiratory failure with hypoxia Diagnosis: Principal (2) NSTEMI (non-ST elevated myocardial infarction) Diagnosis: Principal (3) Moderate mitral regurgitation Diagnosis: Principal (4) COPD exacerbation Diagnosis: Principal (5) Pulmonary edema Diagnosis: Principal (6) CAD (coronary artery disease) Diagnosis: Principal (7) MIRNA (acute kidney injury) Diagnosis: Principal (8) Bilateral pulmonary embolism Diagnosis: Secondary (9) DM (diabetes mellitus) Diagnosis: Secondary (10) HTN (hypertension) Diagnosis: Secondary (11) Hyperlipidemia Diagnosis: Secondary Transfer Summary/Subjective This is a 56yM with history of prior stroke and prior PE who presents with 1 day history of shortness of breath which has been worsening since earlier in the day. He endorses dyspnea on exertion. He originally denied chest pain on admission, but over the last hour or two has also developed substernal chest pain which is non-radiating. he states he has never had a heart attack before. Remainder of the ROS is negative unless otherwise stated. He had a prior PE back in September, but he states he stopped taking his anticoagulation a few weeks ago. In the ER he was found to have a room air saturation of 60%. He was placed on a NRB. He was given 80mg lasix iv x 1. His BNP is 662, trop 2.58. He refused BiPAP and then his NRB. on my evaluation he is on 6L o2 by NC with spo2 92%. He has additionally refused little catheter placement. 04/14: Anxious overnight. Remained on pNRB overnight, no down to 50% VM. Echo- Estimated ejection fraction in the range of 35-40%. limited LV wall motion assessment moderate MR. Moderate TR. Moderate pulmonary hypertension present ( range 50-60 mmHg). Cardiac cath: 04/13 Severe multivessel disease. CTS Dr. Reid planning on CABG mid week. CXR unchanged on my review. Intermittent chest pain, but improved 04/15: O2 saturation improved on NC, intermittent mild desaturation while sleeping. CXR pending, rales improved. CABG date not confirmed -[facility]: date and location of surgery Objective Vital Signs Date Time Temp Pulse Resp B/P Pulse Ox O2 Delivery O2 Flow Rate FiO2 04/15/17 07:45 92 Nasal Cannula 4.00 04/15/17 04:00 61 04/15/17 00:00 97.6 20 120/70 04/14/17 07:40 50 Intake and Output 04/14/17 04/14/17 04/15/17 08:00 16:00 00:00 Intake Total 840 ml Output Total 1245 ml Balance -405 ml Result Diagram: 04/15/17 0210 04/15/17 0210 Imaging Last Impressions Chest X-Ray 04/13/17 0114 Signed Impressions: Service Date/Time: Thursday, April 13, 2017 01:24 - CONCLUSION: Bibasilar patchy infiltrates greater right lower lobe. Holden Lin MD Objective Remarks GENERAL: Middle-aged male, lying in bed, in no distress HEENT: Normocephalic. Atraumatic. Pupils equal, round, reactive, conjugate. Mucous membranes are moist NECK: Trachea is midline. There is no JVD. CHEST: Air entry equal bilaterally, diminished with few basilar rales posteriorly, SPO2 98% on NC CARDIOVASCULAR: S1-S2 normal. I cannot appreciate any murmurs (Moderate MR on Echo) ABDOMEN: Soft, nontender, nondistended. No guarding. MUSCULOSKELETAL: Pulses 2+. No peripheral edema. NEUROLOGICAL: Alert awake oriented no focal deficits A/P Assessment and Plan Assessment: 56yM with CHF exacerbation, and NSTEMI, and hypoxemia. Cardiac cath showed severe multivessel coronary artery disease, CTS planning CABG mid week once approved by [place], but date and location not confirmed yet.Continue heparin, asa, beta blockers and aggressive forced diuresis. BiPAP PN Acute Hypoxic and Hypercarbic Respiratory Failure -- Wean oxygen for spo2 > 90% -- BiPAP, as tolerated. -- DuoNeb every 6 hours and when necessary, add Symbicort -- EzPAP, Acapella CHF exacerbation Ischemic cardiomyopathy -- 2d echo-EF 35-40%, mod MR -- lasix 40mg iv q6h, decreased o 40 mg po BID NSTEMI Moderate MR -- ntg SL PRN, dilaudid prn for chest pain -- Scheduled metoprolol started by Dr. Burris -- anticoagulate with heparin drip -- ASA -- Cardiology Dr. Burris- Cath shows severe multivessel CAD -- Dr. Reid from CTS following, plan for CABG mid week once [facility]. He is aware of moderate MR COPD -- nebs, O2 -- Start Symbicort Hypokalemia -- ICU electrolyte protocol -- Aggressive replacement. -- Daily bmp History of prior Pulmonary Emboli -- heparin drip cardiac diet as tolerated -SCDs, Protonix Level 3 Consult [facility] to assume care in am 04/16/17 Christal Masters MD Apr 15, 2017 08:11
[2017-04-15] MEDS: HEPARIN-D5W 25,000 U/250 ML 250 ML IV SCH (08:20)
[2017-04-15] MEDS: METOPROLOL TARTRATE 25 MG TAB PO SCH ×2 (08:21→21:04)
[2017-04-15] MEDS: PANTOPRAZOLE SOD 40 MG DELAYED RELEASE TAB PO SCH (08:21)
[2017-04-15] MEDS: MUPIROCIN 2% OINT 1 APPLIC/GM SYR EACH NARE SCH ×2 (08:21→21:04)
[2017-04-15] MEDS: ASPIRIN 325 MG TAB PO SCH (08:21)
[2017-04-15] MEDS: SODIUM CHLORIDE 0.9% FLUSH 10 ML FLUSH IV FLUSH SCH ×2 (08:22→21:00)
--- NOTE | 2017-04-15 08:41 | RADRPT ---
EXAM DATE/TIME: 04/15/2017 08:16 [facility] COMPARISON: CHEST SINGLE AP, April 14, 2017, 8:07. INDICATIONS : Short of breath MEDICAL HISTORY : Gastroesophageal reflux disease. Chronic obstructive pulmonary disease. diabetes SURGICAL HISTORY : clavicle ENCOUNTER: Subsequent ACUITY: 3 days PAIN SCORE: 7/10 LOCATION: Bilateral chest FINDINGS: Mild interstitial edema is present with minimal bibasilar parenchymal changes. Cardiac size is appro priate. Old clavicle fracture is noted. CONCLUSION: Improvement with less interstitial edema and bibasilar parenchymal opacity. José Miguel Santizo MD FACR on April 15, 2017 at 8:39 Board Certified Radiologist. This report was verified electronically.
[2017-04-15] MEDS: DOCUSATE SODIUM 50 MG/SENNA 8.6 MG TAB PO SCH ×2 (09:00→21:04)
[2017-04-15] MEDS: BUDESONIDE-FORMOTEROL 160/4.5 MCG INHALER INH SCH ×2 (09:00→21:00)
[2017-04-15] MEDS ORDERED: IOHEXOL 350 MG/ML 100 ML BTL (for Cath Lab) OTHER ONE (13:18)
[2017-04-15 13:40] LABS: APTT (PATIENT) 40.6 SEC (24.3-30.1)
[2017-04-15] MEDS: PREGABALIN 75 MG CAP PO SCH ×2 (13:54→21:00)
[2017-04-15] MEDS: VENLAFAXINE HCL 25 MG TAB PO SCH ×2 (14:25→21:04)
--- NOTE | 2017-04-15 16:58 | PD.CAR.PN ---
CVT Progress Note Subjective/Hospital Course: some general discomfort in his neck, relieved with Dilaudid somewhat improved with decreased oxygen requirements, back to baseline of 2 liters ambulating in room, consider transferring to stepdown in am Objective: GENERAL: SKIN: Warm and dry. HEAD: Normocephalic. EYES: No scleral icterus. No injection or drainage. NECK: Supple, trachea midline. No JVD or lymphadenopathy. CARDIOVASCULAR: Regular rate and rhythm without murmurs, gallops, or rubs. RESPIRATORY: Breath sounds equal bilaterally. No accessory muscle use. few crackles right lower base GASTROINTESTINAL: Abdomen soft, non-tender, nondistended. MUSCULOSKELETAL: No cyanosis, or edema. BACK: Nontender without obvious deformity. No CVA tenderness. Vital Signs Date Time Temp Pulse Resp B/P Pulse Ox O2 Delivery O2 Flow Rate FiO2 04/15/17 15:00 98 Nasal Cannula 3.00 04/15/17 15:00 97.7 66 16 135/78 94 04/15/17 15:00 69 04/15/17 11:00 96 Nasal Cannula 3.00 04/15/17 11:00 66 04/15/17 11:00 98.2 60 18 118/71 96 04/15/17 08:52 18 04/15/17 07:45 92 Nasal Cannula 4.00 04/15/17 07:39 18 04/15/17 07:00 97.9 78 18 124/82 98 04/15/17 07:00 77 04/15/17 07:00 98 Nasal Cannula 3.00 04/15/17 04:00 97.6 61 20 116/74 92 04/15/17 04:00 95 Nasal Cannula 4.00 04/15/17 04:00 61 04/15/17 00:00 97.6 61 20 120/70 95 04/15/17 00:00 94 Venturi Mask 4.00 04/15/17 00:00 61 04/14/17 21:12 98 Nasal Cannula 4.00 04/14/17 20:00 94 Venturi Mask 4.00 04/14/17 20:00 97.8 52 18 127/77 99 04/14/17 20:00 94 Labs: Laboratory Tests Test 04/15/17 12:18 Activated Partial 40.6 SEC Thromboplast Time (24.3-30.1) Result Diagram: 04/15/1720904/15/17209 (1) Intractable pain (2) CAD (coronary artery disease) Plan: ASA, stain , BB for surgery on discussed with Dr Najera (3) Pulmonary edema (4) DM (diabetes mellitus) (5) Unsteady gait (6) NSTEMI (non-ST elevated myocardial infarction) (7) MIRNA (acute kidney injury) Problem Qualifiers (1) CAD (coronary artery disease): Qualified Code: I25.110 - Coronary artery disease involving enterprise coronary artery of enterprise heart with unstable angina pectoris (2) DM (diabetes mellitus): Qualified Code: E11.59 - Type 2 diabetes mellitus with other circulatory complication, without long-term current use of insulin Chloe Gillespie Apr 15, 2017 16:58
[2017-04-15] MEDS: ATORVASTATIN 20 MG TAB PO SCH (21:04)
[2017-04-16] VITALS (22 sets, daily range): BP systolic 114–139; BP diastolic 69–88; PULSE 62–90; RESP 14–18; TEMP 97–98.6; O2SAT 93–97
[2017-04-16] MEDS: HYDROmorphone HCL PF 1 MG/ML VIAL IV PUSH PRN ×4 (02:47→21:30)
[2017-04-16] MEDS: HEPARIN-D5W 25,000 U/250 ML 250 ML IV SCH ×2 (03:40→15:18)
[2017-04-16] MEDS: INSULIN NovoLIN REGULAR SUPPLEMENTAL SCALE SQ SCH ×5 (04:00→20:00)
[2017-04-16] MEDS: CHLORHEXIDINE GLUCONATE 2 % 1 PACK (2 CLOTHS) TOP SCH (04:00)
[2017-04-16] MEDS: RESP: ALBUTEROL 2.5 MG/IPRATROPIUM 0.5 MG NEB (SCH) INH ×4 (04:32→21:45)
--- NOTE | 2017-04-16 05:08 | RADRPT ---
EXAM DATE/TIME: 04/16/2017 03:56 [facility] COMPARISON: CHEST SINGLE AP, April 15, 2017, 8:16. INDICATIONS : Short of breath. MEDICAL HISTORY : Gastroesophageal reflux disease. Chronic obstructive pulmonary disease. SURGICAL HISTORY : clavicle. ENCOUNTER: Subsequent ACUITY: 2 weeks PAIN SCORE: 0/10 LOCATION: Bilateral chest FINDINGS: Further decrease in bilateral interstitial infiltrates with some residual Jocelyne septal lines lower la teral right lung and a persistent infiltrate in the retrocardiac region on the left side. There alfonso ins blunting of the left costophrenic angle and loss of delineation of portions of the left hemidiaph ragm. CONCLUSION: Persistent left lower lung infiltrate and pleural effusion. Db Ramsay MD on April 16, 2017 at 5:05 Board Certified Radiologist. This report was verified electronically.
[2017-04-16 06:03] LABS: AUTOMATED NEUTROPHIL # 4.9 TH/MM3 (1.8-7.7); BASOPHIL % 0.6 % (0.0-2.0); EOSINOPHIL # 0.3 TH/MM3 (0-0.4); EOSINOPHIL % 4.3 % (0.0-4.0); HEMATOCRIT 33.3 % (39.0-51.0); HEMO FLAGS DIFF FINAL; LYMPH % 16.1 % (9.0-44.0); LYMPHOCYTE # 1.1 TH/MM3 (1.0-4.8); MEAN CELL VOLUME 90.9 FL (80.0-100.0); MEAN CORPUSCULAR HEMOGLOBIN 30.1 PG (27.0-34.0); MEAN CORPUSCULAR HGB CONC 33.2 % (32.0-36.0); MONO % 8.8 % (0.0-8.0); NEUT % 70.2 % (16.0-70.0); PLATELET COUNT 215 TH/MM3 (150-450); RED BLOOD COUNT 3.67 MIL/MM3 (4.50-5.90); RED CELL DISTRIBUTION WIDTH 13.6 % (11.6-17.2)
[2017-04-16 06:06] LABS: APTT (PATIENT) 46.2 SEC (24.3-30.1)
[2017-04-16 06:16] LABS: ANION GAP 7 MEQ/L (5-15); AST (GOT) 12 U/L (15-37); BICARBONATE 31.7 MEQ/L (21.0-32.0); BLOOD UREA NITROGEN 27 MG/DL (7-18); CHLORIDE 97 MEQ/L (98-107); GLOMERULAR FILTRATION RATE 87 ML/MIN (>89); MAGNESIUM 1.6 MG/DL (1.5-2.5); POTASSIUM 4.2 MEQ/L (3.5-5.1); SODIUM (NA) 136 MEQ/L (136-145)
[2017-04-16 06:17] LABS: ALT (GPT) 14 U/L (12-78)
[2017-04-16 06:19] LABS: ALKALINE PHOSPHATASE 90 U/L (45-117); TOTAL BILIRUBIN ADULT 0.6 MG/DL (0.2-1.0)
[2017-04-16] MEDS: DOCUSATE SODIUM 50 MG/SENNA 8.6 MG TAB PO SCH ×2 (08:00→20:31)
--- NOTE | 2017-04-16 08:15 | PD.CARD.PN ---
Subjective Subjective Remarks Pt without complaints Objective Medications Current Medications Medications (Trade) Dose Ordered Sig/Dario Route Start Time Stop Time Status Last Admin Magnesium Oxide 800 mg 800 mg UNSCH PRN PO 04/13/17 03:45 Magnesium Sulfate 4 gm/Sodium Chloride 100 ml @ 50 mls/hr UNSCH PRN IV 04/13/17 03:45 Magnesium Sulfate 2 gm/Sodium Chloride 100 ml @ 50 mls/hr UNSCH PRN IV 04/13/17 03:45 Potassium Chloride 100 ml @ 50 mls/hr Q2H PRN IV 04/13/17 03:45 Potassium Chloride 100 ml @ 50 mls/hr Q2H PRN IV 04/13/17 03:45 Potassium Chloride 100 ml @ 50 mls/hr Q2H PRN IV 04/13/17 03:45 (KCl 40 Meq Premix Inj) 100 ml @ 25 mls/hr UNSCH PRN IV 04/13/17 03:45 (K-Phos) 2,000 mg Q4H PRN PO 04/13/17 03:45 Potassium Phosphate 2000 mg 2,000 mg UNSCH PRN PO/TUBE 04/13/17 03:45 Potassium Phosphate 30 mmol/ Sodium Chloride 260 ml @ 42 mls/hr UNSCH PRN IV 04/13/17 03:45 (Sodium Phosphate Inj/NS 250 ml Inj) 250 ml @ 42 mls/hr UNSCH PRN IV 04/13/17 03:45 (D50w (Vial) Inj) 25 ml UNSCH PRN IV PUSH 04/13/17 03:45 (NovoLIN R SUPPLEMENTAL SCALE) 1 Q4HR SQ 04/13/17 04:00 04/15/17 23:38 (Zofran Inj) 4 mg Q6H PRN IV 04/13/17 03:45 Miscellaneous Information 1 Q361D XX 04/13/17 03:45 (Chlorhexidine 2% Cloth) 3 pack Taper DAILY@04 TOP 04/13/17 04:00 04/09/18 03:59 04/16/17 04:00 (Chlorhexidine 2% Cloth) 3 pack UNSCH PRN TOP 04/13/17 03:45 (Jasmyne-Colace) 1 tab BID PO 04/13/17 09:00 04/15/17 21:04 (Aspirin) 325 mg DAILY PO 04/13/17 09:00 04/15/17 08:21 (Dilaudid Pf Inj) 0.5 mg Q4H PRN IV PUSH 04/13/17 04:15 04/16/17 02:47 (Lipitor) 20 mg HS PO 04/13/17 21:00 04/15/17 21:04 Nitroglycerin 0.4 mg 0.4 mg Q5M PRN SL 04/13/17 07:45 (NS 1000 ml Inj) 1,000 ml @ 30 mls/hr Q24H IV 04/13/17 10:00 04/18/17 09:59 (NS Flush) 2 ml BID IV FLUSH 04/13/17 21:00 04/15/17 21:00 (NS Flush) 2 ml UNSCH PRN IV FLUSH 04/13/17 16:30 (Bactroban Nasal 2% Oint) 1 applic BID EACH NARE 04/13/17 21:00 04/18/17 20:59 04/15/17 21:04 (Heparin Inj) 5,000 units UNSCH PRN IV 04/13/17 22:30 Heparin Sodium (Porcine) 2500 units 2,500 units UNSCH PRN IV 04/13/17 22:30 04/14/17 20:28 (Heparin-D5W Inj) 250 ml @ 0 mls/hr TITRATE IV 04/13/17 16:30 04/16/17 03:40 (Roxicodone) 10 mg Q6H PRN PO 04/13/17 18:15 04/16/17 05:39 (Ativan) 0.5 mg Q6H PRN PO 04/14/17 08:45 04/15/17 10:54 (Protonix) 40 mg DAILY PO 04/14/17 11:00 04/15/17 08:21 (Lopressor) 12.5 mg Q12HR PO 04/15/17 09:00 04/15/17 21:04 (Lasix) 40 mg BID@18 PO 04/19/17 09:00 (Pill Splitter) 1 ea UNSCH PRN OTHER 04/15/17 08:00 (Symbicort 160-4.5 Inh) 1 puff Q12HR INH 04/15/17 09:00 04/15/17 21:00 (Lyrica) 75 mg BID PO 04/15/17 13:00 04/15/17 21:00 (Effexor) 50 mg Q12HR PO 04/15/17 13:00 04/15/17 21:04 Vital Signs / I&O Vital Signs Date Time Temp Pulse Resp B/P Pulse Ox O2 Delivery O2 Flow Rate FiO2 04/16/17 06:40 16 04/16/17 03:00 71 04/16/17 03:00 97.6 71 14 126/88 96 04/16/17 03:00 Nasal Cannula 4.00 50 04/15/17 23:00 97.3 65 12 128/78 96 04/15/17 23:00 Nasal Cannula 4.00 04/15/17 23:00 67 04/15/17 22:07 16 04/15/17 21:16 96 Nasal Cannula 4.00 04/15/17 20:57 16 04/15/17 19:00 98.3 65 16 134/59 94 04/15/17 19:00 Nasal Cannula 4.00 04/15/17 19:00 62 04/15/17 15:00 98 Nasal Cannula 3.00 04/15/17 15:00 97.7 66 16 135/78 94 04/15/17 15:00 69 04/15/17 11:00 96 Nasal Cannula 3.00 04/15/17 11:00 66 04/15/17 11:00 98.2 60 18 118/71 96 I/O 04/15/17 04/15/17 04/15/17 04/16/17 04/16/17 04/16/17 07:00 15:00 23:00 07:00 15:00 23:00 Intake Total 1045 ml 576 ml 278 ml Output Total 1575 ml 575 ml 1300 ml Balance -530 ml 1 ml -1022 ml Intake Oral 620 ml 430 ml 120 ml IV Total 425 ml 146 ml 158 ml Output Urine Total 1575 ml 575 ml 1300 ml # Bowel Movements 0 Physical Exam GENERAL: Well developed, well nourished. No acute distress. HEENT: Jugular venous pressure is normal. CHEST: Lungs rales to auscultation bilaterally. Unlabored respiratory effort. CARDIAC: Regular rate and rhythm without 2/6 systolic murmur ABDOMEN: Soft, nontender, no hepatosplenomegaly. Bowel sounds present. EXTREMITIES: No clubbing, cyanosis, or edema. Laboratory Laboratory Tests Test 8/14/17 8/15/17 12:18 05:12 Activated Partial 40.6 SEC 46.2 SEC Thromboplast Time White Blood Count 7.0 TH/MM3 Red Blood Count 3.67 MIL/MM3 Hemoglobin 11.1 GM/DL Hematocrit 33.3 % Mean Corpuscular Volume 90.9 FL Mean Corpuscular Hemoglobin 30.1 PG Mean Corpuscular Hemoglobin 33.2 % Concent Red Cell Distribution Width 13.6 % Platelet Count 215 TH/MM3 Mean Platelet Volume 8.7 FL Neutrophils (%) (Auto) 70.2 % Lymphocytes (%) (Auto) 16.1 % Monocytes (%) (Auto) 8.8 % Eosinophils (%) (Auto) 4.3 % Basophils (%) (Auto) 0.6 % Neutrophils # (Auto) 4.9 TH/MM3 Lymphocytes # (Auto) 1.1 TH/MM3 Monocytes # (Auto) 0.6 TH/MM3 Eosinophils # (Auto) 0.3 TH/MM3 Basophils # (Auto) 0.0 TH/MM3 CBC Comment DIFF FINAL Differential Comment Sodium Level 136 MEQ/L Potassium Level 4.2 MEQ/L Chloride Level 97 MEQ/L Carbon Dioxide Level 31.7 MEQ/L Anion Gap 7 MEQ/L Blood Urea Nitrogen 27 MG/DL Creatinine 0.90 MG/DL Estimat Glomerular Filtration 87 ML/MIN Rate Random Glucose 132 MG/DL Calcium Level 8.3 MG/DL Magnesium Level 1.6 MG/DL Total Bilirubin 0.6 MG/DL Aspartate Amino Transf 12 U/L (AST/SGOT) Alanine Aminotransferase 14 U/L (ALT/SGPT) Alkaline Phosphatase 90 U/L Total Protein 7.0 GM/DL Albumin 3.3 GM/DL Assessment and Plan Problem List: (1) Intractable pain (2) CAD (coronary artery disease) (3) Pulmonary edema (4) DM (diabetes mellitus) (5) Unsteady gait (6) NSTEMI (non-ST elevated myocardial infarction) (7) MIRNA (acute kidney injury) Assessment and Plan NSTEMI- s/p cath with severe multivessel disease -CT surg --awaiting CABG after optimization - on heparin heparin -no change Acute systolic heart failure- EF 40% - pt still has rales Lipids- statin COPD- per quality assurance coordinator Problem Qualifiers (1) CAD (coronary artery disease): Qualified Code: I25.110 - Coronary artery disease involving [place] coronary artery of [place] heart with unstable angina pectoris (2) DM (diabetes mellitus): Qualified Code: E11.59 - Type 2 diabetes mellitus with other circulatory complication, without long-term current use of insulin Riya Burris MD Apr 16, 2017 08:15
[2017-04-16] MEDS: MUPIROCIN 2% OINT 1 APPLIC/GM SYR EACH NARE SCH ×2 (08:17→20:31)
[2017-04-16] MEDS: BUDESONIDE-FORMOTEROL 160/4.5 MCG INHALER INH SCH ×2 (08:18→20:29)
[2017-04-16] MEDS: PANTOPRAZOLE SOD 40 MG DELAYED RELEASE TAB PO SCH (08:19)
[2017-04-16] MEDS: VENLAFAXINE HCL 25 MG TAB PO SCH ×2 (08:19→20:32)
[2017-04-16] MEDS: ASPIRIN 325 MG TAB PO SCH (08:19)
[2017-04-16] MEDS: METOPROLOL TARTRATE 25 MG TAB PO SCH ×2 (08:20→20:31)
[2017-04-16] MEDS: PREGABALIN 75 MG CAP PO SCH ×2 (08:20→20:31)
[2017-04-16] MEDS: SODIUM CHLORIDE 0.9% FLUSH 10 ML FLUSH IV FLUSH SCH ×2 (08:20→20:32)
--- NOTE | 2017-04-16 08:47 | HHI.PR ---
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 He endorses dyspnea on exertion. He originally denied chest pain on admission, but over the last hour or two has also developed substernal chest pain which is non-radiating. he states he has never had a heart attack before. Remainder of the ROS is negative unless otherwise stated. He had a prior PE back in September, but he states he stopped taking his anticoagulation a few weeks ago. In the ER he was found to have a room air saturation of 60%. He was placed on a NRB. He was given 80mg Lasix iv x 1. His BNP is 662, trop 2.58. He refused BiPAP and then his NRB. on my evaluation he is on 6L o2 by NC with spo2 92%. He has additionally refused Cuellar catheter placement. 04/14: Anxious overnight. Remained on pNRB overnight, no down to 50% VM. Echo- Estimated ejection fraction in the range of 35-40%. limited LV wall motion assessment moderate MR. Moderate TR. Moderate pulmonary hypertension present ( range 50-60 mmHg). Cardiac cath: 04/13 Severe multivessel disease. CTS Dr. Reid planning on CABG mid week. CXR unchanged on my review. Intermittent chest pain, but improved Hospitalist Notes: 04/15: Patient transfer to be followed by medical team, discussed with nurse Miss Avina in Intensive Care Unit, he is transferred to Cardiac floor, no nausea, vomit or diarrhea, asking for pain medicine, as per patient continue with thoracic pain and low back pain from trauma related to syncopal episodes. but stable awaiting for procedure to be performed this next . 04/18/17 Objective Vital Signs Date Time Temp Pulse Resp B/P Pulse Ox O2 Delivery O2 Flow Rate FiO2 04/16/17 06:40 16 04/16/17 03:00 71 04/16/17 03:00 97.6 71 14 126/88 96 04/16/17 03:00 Nasal Cannula 4.00 50 04/15/17 23:00 97.3 65 12 128/78 96 04/15/17 23:00 Nasal Cannula 4.00 04/15/17 23:00 67 04/15/17 22:07 16 04/15/17 21:16 96 Nasal Cannula 4.00 04/15/17 20:57 16 04/15/17 19:00 98.3 65 16 134/59 94 04/15/17 19:00 Nasal Cannula 4.00 04/15/17 19:00 62 04/15/17 15:00 98 Nasal Cannula 3.00 04/15/17 15:00 97.7 66 16 135/78 94 04/15/17 15:00 69 04/15/17 11:00 96 Nasal Cannula 3.00 04/15/17 11:00 66 04/15/17 11:00 98.2 60 18 118/71 96 I/O 04/15/17 04/15/17 04/15/17 04/16/17 04/16/17 04/16/17 07:00 15:00 23:00 07:00 15:00 23:00 Intake Total 1045 ml 576 ml 278 ml Output Total 1575 ml 575 ml 1300 ml Balance -530 ml 1 ml -1022 ml Intake Oral 620 ml 430 ml 120 ml IV Total 425 ml 146 ml 158 ml Output Urine Total 1575 ml 575 ml 1300 ml # Bowel Movements 0 Result Diagram: 04/16/17 0512 04/16/17 0512 Imaging Last Impressions Chest X-Ray 04/16/17 0600 Signed Impressions: Service Date/Time: Sunday, April 16, 2017 03:56 - CONCLUSION: Persistent left lower lung infiltrate and pleural effusion. Db Ramsay MD Lower Extremity Ultrasound 04/13/17 0000 Signed Impressions: Service Date/Time: Thursday, April 13, 2017 20:08 - CONCLUSION: Venous mapping study as described. Samir Nelson MD Carotid Artery Ultrasound 04/13/17 0000 Signed Impressions: Service Date/Time: Thursday, April 13, 2017 19:38 - CONCLUSION: Minimal plaque identified at the carotid bulbs bilaterally. No evidence of hemodynamically significant carotid stenosis. Canelo Rea MD CT Angiography 04/13/17 0000 Signed Impressions: Service Date/Time: Thursday, April 13, 2017 03:11 - CONCLUSION: 1. No evidence for pulmonary embolism. 2. Patchy groundglass densities with bibasilar consolidation and bilateral pleural effusions, likely CHF. 3. Coronary artery calcifications. Holden Lin MD Procedures Cardiac Catheterization Other Results Laboratory Tests Test 04/13/17 04/13/17 04/13/17 04/13/17 01:08 01:30 04:35 13:50 Venous Blood pH 7.24 Venous Blood Partial Pressure 63 mmHg CO2 Venous Blood Partial Pressure 37 mmHg O2 Venous Blood HCO3 26 mmol/L Venous Blood Oxygen Saturation 59 % Venous Blood Oxygen Content 10.2 Vol % Venous Blood Base Excess -0.3 mmol/L Blood Gas Inspired Oxygen 100 % B-Type Natriuretic Peptide 662 PG/ML Total Creatine Kinase 155 U/L Creatine Kinase MB 10.1 NG/ML Nasal Screen MRSA (PCR) MRSA NOT DETECTED Test 04/13/17 04/13/17 04/14/17 04/16/17 18:05 23:50 05:40 05:12 Urine Color YELLOW Urine Turbidity CLEAR Urine pH 5.0 Urine Specific [place] 1.024 Urine Protein NEG mg/dL Urine Glucose (UA) NEG mg/dL Urine Ketones NEG mg/dL Urine Occult Blood NEG Urine Nitrite NEG Urine Bilirubin NEG Urine Urobilinogen LESS THAN 2.0 MG/DL Urine Leukocyte Esterase NEG Urine RBC LESS THAN 1 /hpf Urine WBC 1 /hpf Microscopic Urinalysis Comment CULT NOT INDICATED Hemoglobin A1c 7.9 % Troponin I 4.08 NG/ML Blood Type B POSITIVE Antibody Screen NEGATIVE Blood Bank Comment Blood Gas Puncture Site RT RADIAL Blood Gas Patient Temperature 98.6 Blood Gas HCO3 29 mmol/L Blood Gas Base Excess 4.0 mmol/L Blood Gas Oxygen Saturation 95 % Arterial Blood pH 7.37 Arterial Blood Partial 52 mmHg Pressure CO2 Arterial Blood Partial 98 mmHg Pressure O2 Arterial Blood Oxygen Content 14.5 Vol % Arterial Blood 1.3 % Carboxyhemoglobin Arterial Blood Methemoglobin 1.1 % Blood Gas Hemoglobin 10.8 G/DL 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 Blood Gas Liter Flow 13 L/M Triglycerides Level 138 MG/DL Cholesterol Level 150 MG/DL LDL Cholesterol 86 MG/DL HDL Cholesterol 36.5 MG/DL Cholesterol/HDL Ratio 4.10 RATIO White Blood Count 7.0 TH/MM3 Red Blood Count 3.67 MIL/MM3 Hemoglobin 11.1 GM/DL Hematocrit 33.3 % Mean Corpuscular Volume 90.9 FL Mean Corpuscular Hemoglobin 30.1 PG Mean Corpuscular Hemoglobin 33.2 % Concent Red Cell Distribution Width 13.6 % Platelet Count 215 TH/MM3 Mean Platelet Volume 8.7 FL Neutrophils (%) (Auto) 70.2 % Lymphocytes (%) (Auto) 16.1 % Monocytes (%) (Auto) 8.8 % Eosinophils (%) (Auto) 4.3 % Basophils (%) (Auto) 0.6 % Neutrophils # (Auto) 4.9 TH/MM3 Lymphocytes # (Auto) 1.1 TH/MM3 Monocytes # (Auto) 0.6 TH/MM3 Eosinophils # (Auto) 0.3 TH/MM3 Basophils # (Auto) 0.0 TH/MM3 CBC Comment DIFF FINAL Differential Comment Activated Partial 46.2 SEC Thromboplast Time Sodium Level 136 MEQ/L Potassium Level 4.2 MEQ/L Chloride Level 97 MEQ/L Carbon Dioxide Level 31.7 MEQ/L Anion Gap 7 MEQ/L Blood Urea Nitrogen 27 MG/DL Creatinine 0.90 MG/DL Estimat Glomerular Filtration 87 ML/MIN Rate Random Glucose 132 MG/DL Calcium Level 8.3 MG/DL Magnesium Level 1.6 MG/DL Total Bilirubin 0.6 MG/DL Aspartate Amino Transf 12 U/L (AST/SGOT) Alanine Aminotransferase 14 U/L (ALT/SGPT) Alkaline Phosphatase 90 U/L Total Protein 7.0 GM/DL Albumin 3.3 GM/DL Objective Remarks GENERAL: Middle-aged male, lying in bed, in mild distress due to dyspnea and anxiety HEENT: Normocephalic. Atraumatic. Pupils equal, round, reactive, conjugate. Mucous membranes are moist NECK: Trachea is midline. There is no JVD. CHEST: Air entry equal bilaterally with scattered crackles, SPO2 98% on pNRB CARDIOVASCULAR: S1-S2 normal. I cannot appreciate any murmurs (Moderate MR on Echo) ABDOMEN: Soft, nontender, nondistended. No guarding. MUSCULOSKELETAL: Pulses 2+. No peripheral edema. NEUROLOGICAL: Alert awake oriented no focal deficits Medications and IVs Current Medications Medications (Trade) Dose Ordered Sig/Dario Route Start Time Stop Time Status Last Admin Magnesium Oxide 800 mg 800 mg UNSCH PRN PO 04/13/17 03:45 Magnesium Sulfate 4 gm/Sodium Chloride 100 ml @ 50 mls/hr UNSCH PRN IV 04/13/17 03:45 Magnesium Sulfate 2 gm/Sodium Chloride 100 ml @ 50 mls/hr UNSCH PRN IV 04/13/17 03:45 Potassium Chloride 100 ml @ 50 mls/hr Q2H PRN IV 04/13/17 03:45 Potassium Chloride 100 ml @ 50 mls/hr Q2H PRN IV 04/13/17 03:45 Potassium Chloride 100 ml @ 50 mls/hr Q2H PRN IV 04/13/17 03:45 (KCl 40 Meq Premix Inj) 100 ml @ 25 mls/hr UNSCH PRN IV 04/13/17 03:45 (K-Phos) 2,000 mg Q4H PRN PO 04/13/17 03:45 Potassium Phosphate 2000 mg 2,000 mg UNSCH PRN PO/TUBE 04/13/17 03:45 Potassium Phosphate 30 mmol/ Sodium Chloride 260 ml @ 42 mls/hr UNSCH PRN IV 04/13/17 03:45 (Sodium Phosphate Inj/NS 250 ml Inj) 250 ml @ 42 mls/hr UNSCH PRN IV 04/13/17 03:45 (D50w (Vial) Inj) 25 ml UNSCH PRN IV PUSH 04/13/17 03:45 (NovoLIN R SUPPLEMENTAL SCALE) 1 Q4HR SQ 04/13/17 04:00 04/15/17 23:38 (Zofran Inj) 4 mg Q6H PRN IV 04/13/17 03:45 Miscellaneous Information 1 Q361D XX 04/13/17 03:45 (Chlorhexidine 2% Cloth) 3 pack Taper DAILY@04 TOP 04/13/17 04:00 04/09/18 03:59 04/16/17 04:00 (Chlorhexidine 2% Cloth) 3 pack UNSCH PRN TOP 04/13/17 03:45 (Jasmyne-Colace) 1 tab BID PO 04/13/17 09:00 04/15/17 21:04 (Aspirin) 325 mg DAILY PO 04/13/17 09:00 04/16/17 08:19 (Dilaudid Pf Inj) 0.5 mg Q4H PRN IV PUSH 04/13/17 04:15 04/16/17 08:30 (Lipitor) 20 mg HS PO 04/13/17 21:00 04/15/17 21:04 Nitroglycerin 0.4 mg 0.4 mg Q5M PRN SL 04/13/17 07:45 (NS 1000 ml Inj) 1,000 ml @ 30 mls/hr Q24H IV 04/13/17 10:00 04/18/17 09:59 (NS Flush) 2 ml BID IV FLUSH 04/13/17 21:00 04/16/17 08:20 (NS Flush) 2 ml UNSCH PRN IV FLUSH 04/13/17 16:30 (Bactroban Nasal 2% Oint) 1 applic BID EACH NARE 04/13/17 21:00 04/18/17 20:59 04/16/17 08:17 (Heparin Inj) 5,000 units UNSCH PRN IV 04/13/17 22:30 Heparin Sodium (Porcine) 2500 units 2,500 units UNSCH PRN IV 04/13/17 22:30 04/14/17 20:28 (Heparin-D5W Inj) 250 ml @ 0 mls/hr TITRATE IV 04/13/17 16:30 04/16/17 03:40 (Roxicodone) 10 mg Q6H PRN PO 04/13/17 18:15 04/16/17 05:39 (Ativan) 0.5 mg Q6H PRN PO 04/14/17 08:45 04/15/17 10:54 (Protonix) 40 mg DAILY PO 04/14/17 11:00 04/16/17 08:19 (Lopressor) 12.5 mg Q12HR PO 04/15/17 09:00 04/16/17 08:20 (Lasix) 40 mg BID@09,18 PO 04/19/17 09:00 (Pill Splitter) 1 ea UNSCH PRN OTHER 04/15/17 08:00 (Symbicort 160-4.5 Inh) 1 puff Q12HR INH 04/15/17 09:00 04/16/17 08:18 (Lyrica) 75 mg BID PO 04/15/17 13:00 04/16/17 08:20 (Effexor) 50 mg Q12HR PO 04/15/17 13:00 04/16/17 08:19 A/P Assessment and Plan 1. Acute Hypoxic and Hypercarbic Respiratory Failure, continue Oxygen to keep Oxygen saturation over 90%, BiPAP as tolerated Bronchodilator, Mucolytic and Incentive Spirometry 2. CHF exacerbation/NSTEMI and Hypoxemia, in a patient with status post Cardiac Catheterization showed Severe Multivessel Coronary artery disease, Cardiothoracic Surgery planning CABG mid week, continue Heparin, Aspirin, Beta Blockers and aggressive forced diuresis Echocardiogram EF 35-40%, Moderate MR, Lasix 80 mg IV every six hours. 3. NSTEMI/Moderate MR Nitroglycerine, Beta blockers. anticoagulation with Heparin. Aspirin, Cardiology Dr. Burris- Cath shows severe multivessel CAD. Dr. Reid from CTS following, plan for CABG mid week per him. He is aware of moderate MR. 4. COPD to continue Bronchodilator, Mucolytic and incentive spirometry. 5. Electrolyte derangement replacing 6. History of Prior Pulmonary Emboli on Heparin drip cardiac diet as tolerated SCDs, Protonix Discharge Planning Once cleared by Specialists. Tim Grubbs MD Apr 16, 2017 08:47
[2017-04-16] MEDS: SODIUM CHLOR 0.9% 1000 ML INJ 1,000 ML IV SCH (10:00)
--- NOTE | 2017-04-16 10:17 | PD.CAR.PN ---
CVT Progress Note Subjective/Hospital Course: 56/ male [facility] hx of prior CVA and prior PE ( September ) stopped taking his anticoagulation a few weeks ago. Presented to ED with SOB, worsening on exertion , room air sat 60%, he was placed on NRB mask diuresed, then later refused Bipap ventilation , he uses 02 2 liters at home. Developed chest pain on admission Trop 2.58, BNP 662. 2decho showed EF 35-40% moderate MR, moderate TR, moderate pulm HTN 50-60mmhg admitted with hypoxic resp failure, NSTEMI, COPD excacerbation , pulm edema , MIRNA, pt underwent cardiac cath by Dr Burris : multi vessel disease PMH: CVA , COPD, Hx . Bilateral PE - noncompliance. The patient has not taking his Xarelto, Hypertension, Hyperlipidemia, Diabetes with neuropathy, GERD, Pneumonia, Frequent falls, Encephalopathy orthostatic hypotension PFT's FEV1 1.38 43% predicted 04/16 pt remains on 4 liter nasal cannula at night, 2 liters during the day, still has some rales right lower lobe will consult Pulmonology for clearance for surgery and , CT chest did show bilateral pleural effusion R>L plan at this time is for surgery scheduled Thur 04/18 plan is surgery on sts data discussed with pt RISK SCORES About the STS Risk Calculator Procedure: CAB Only Risk of Mortality: 1.439% Morbidity or Mortality: 21.348% Long Length of Stay: 7.995% Short Length of Stay: 34.096% Permanent Stroke: 0.781% Prolonged Ventilation: 15.085% DSW Infection: 0.579% Renal Failure: 2.277% Reoperation: 7.094% Objective: GENERAL: SKIN: Warm and dry. HEAD: Normocephalic. EYES: No scleral icterus. No injection or drainage. NECK: Supple, trachea midline. No JVD or lymphadenopathy. CARDIOVASCULAR: Regular rate and rhythm without murmurs, gallops, or rubs. RESPIRATORY: crackles right lower lobe diminished in bases Breath sounds equal bilaterally. No accessory muscle use. GASTROINTESTINAL: Abdomen soft, non-tender, nondistended. MUSCULOSKELETAL: No cyanosis, or edema. BACK: Nontender without obvious deformity. No CVA tenderness. Vital Signs Date Time Temp Pulse Resp B/P Pulse Ox O2 Delivery O2 Flow Rate FiO2 04/16/17 09:20 97.9 74 16 139/77 93 04/16/17 09:20 96 3.00 04/16/17 09:00 69 04/16/17 07:35 95 Nasal Cannula 4.00 04/16/17 07:00 95 Nasal Cannula 4.00 04/16/17 07:00 72 04/16/17 07:00 97.7 68 16 128/76 95 04/16/17 06:40 16 04/16/17 03:00 71 04/16/17 03:00 97.6 71 14 126/88 96 04/16/17 03:00 Nasal Cannula 4.00 50 04/15/17 23:00 97.3 65 12 128/78 96 04/15/17 23:00 Nasal Cannula 4.00 04/15/17 23:00 67 04/15/17 22:07 16 04/15/17 21:16 96 Nasal Cannula 4.00 04/15/17 20:57 16 04/15/17 19:00 98.3 65 16 134/59 94 04/15/17 19:00 Nasal Cannula 4.00 04/15/17 19:00 62 04/15/17 15:00 98 Nasal Cannula 3.00 04/15/17 15:00 97.7 66 16 135/78 94 04/15/17 15:00 69 04/15/17 11:00 96 Nasal Cannula 3.00 04/15/17 11:00 66 04/15/17 11:00 98.2 60 18 118/71 96 Labs: Laboratory Tests Test 04/16/17 05:12 White Blood Count 7.0 TH/MM3 (4.0-11.0) Red Blood Count 3.67 MIL/MM3 (4.50-5.90) Hemoglobin 11.1 GM/DL (13.0-17.0) Hematocrit 33.3 % (39.0-51.0) Mean Corpuscular Volume 90.9 FL (80.0-100.0) Mean Corpuscular Hemoglobin 30.1 PG (27.0-34.0) Mean Corpuscular Hemoglobin 33.2 % Concent (32.0-36.0) Red Cell Distribution Width 13.6 % (11.6-17.2) Platelet Count 215 TH/MM3 (150-450) Mean Platelet Volume 8.7 FL (7.0-11.0) Neutrophils (%) (Auto) 70.2 % (16.0-70.0) Lymphocytes (%) (Auto) 16.1 % (9.0-44.0) Monocytes (%) (Auto) 8.8 % (0.0-8.0) Eosinophils (%) (Auto) 4.3 % (0.0-4.0) Basophils (%) (Auto) 0.6 % (0.0-2.0) Neutrophils # (Auto) 4.9 TH/MM3 (1.8-7.7) Lymphocytes # (Auto) 1.1 TH/MM3 (1.0-4.8) Monocytes # (Auto) 0.6 TH/MM3 (0-0.9) Eosinophils # (Auto) 0.3 TH/MM3 (0-0.4) Basophils # (Auto) 0.0 TH/MM3 (0-0.2) CBC Comment DIFF FINAL Differential Comment Activated Partial 46.2 SEC Thromboplast Time (24.3-30.1) Sodium Level 136 MEQ/L (136-145) Potassium Level 4.2 MEQ/L (3.5-5.1) Chloride Level 97 MEQ/L (98-107) Carbon Dioxide Level 31.7 MEQ/L (21.0-32.0) Anion Gap 7 MEQ/L (5-15) Blood Urea Nitrogen 27 MG/DL (7-18) Creatinine 0.90 MG/DL (0.60-1.30) Estimat Glomerular Filtration 87 ML/MIN (>89) Rate Random Glucose 132 MG/DL (74-106) Calcium Level 8.3 MG/DL (8.5-10.1) Magnesium Level 1.6 MG/DL (1.5-2.5) Total Bilirubin 0.6 MG/DL (0.2-1.0) Aspartate Amino Transf 12 U/L (15-37) (AST/SGOT) Alanine Aminotransferase 14 U/L (12-78) (ALT/SGPT) Alkaline Phosphatase 90 U/L (45-117) Total Protein 7.0 GM/DL (6.4-8.2) Albumin 3.3 GM/DL (3.4-5.0) Result Diagram: 04/16/1751104/16/17511 Telemetry: NSR (1) NSTEMI (non-ST elevated myocardial infarction) (2) CAD (coronary artery disease) Plan: ASA, stain , BB for surgery on consult pulm for clearance (3) Intractable pain (4) Pulmonary edema Plan: continue diuresis (5) DM (diabetes mellitus) Plan: on insulin sliding scale (6) Unsteady gait (7) MIRNA (acute kidney injury) Problem Qualifiers (1) CAD (coronary artery disease): Qualified Code: I25.110 - Coronary artery disease involving [place] coronary artery of [place] heart with unstable angina pectoris (2) DM (diabetes mellitus): Qualified Code: E11.59 - Type 2 diabetes mellitus with other circulatory complication, without long-term current use of insulin Chloe Gillespie Apr 16, 2017 10:17
[2017-04-16] MEDS: MAGNESIUM SULFATE 1 GM PREMIX 100 ML IV SCH ×2 (15:15→16:19)
--- NOTE | 2017-04-16 19:41 | MB ---
cc: MALLORYMALLORY DATE OF CONSULTATION 04/16/17 REASON FOR CONSULTATION Question COPD. HISTORY OF PRESENT ILLNESS The patient is a 56-year-old male admitted with chest pain with evidence of coronary artery disease, coronary artery bypass graft surgery planned in a few days. The patient denies shortness of breath, fever, chills, cough or expectoration in the past. He does have history of bilateral pulmonary emboli in the past for which he was placed on anticoagulant therapy and has stopped for several weeks on his own. The patient has a remote smoking history, however, has not smoked for years. He has not been using any bronchodilator therapy at home, although he admits to being more short of breath with exertion in the last year or two. PAST MEDICAL HISTORY 1. Bilateral pulmonary emboli, 2. Hypertension, 3. Hyperlipidemia, 4. Diabetes, 5. Previous cerebrovascular accident 6. Acid reflux. 7. Multiple episodes of pneumonia in the past. MEDICATIONS At home, 1. Xarelto 2. 3. Oxycodone 4. Fludrocortisone ALLERGIES None known to medication. FAMILY HISTORY Noncontributory. REVIEW OF SYSTEMS A 12-point review of systems as per HPI and past history otherwise negative. PHYSICAL EXAMINATION GENERAL: The patient is alert. VITAL SIGNS: Temperature 98, pulse 80, respirations 18, blood pressure 120/75, O2 sat 96% on 3 liters oxygen. HEENT: Exam unremarkable. Eyes without icterus. NECK: Without adenopathy or thyroid enlargement. CHEST: No dullness to percussion, clear to auscultation. CARDIAC: PMI not appreciated. S1-S2 audible, no murmur or rub. ABDOMEN: Lax, bowel sounds audible. EXTREMITIES: No clubbing, cyanosis or edema. IMAGING STUDIES CT angiogram done 04/13/2017 without evidence of pulmonary emboli, bibasilar ground-glass opacities noted. Small bibasilar effusions, coronary artery calcification. LABORATORY DATA White count 7000, hemoglobin 11, hematocrit 33, platelets 214,000. Sodium 136, potassium 4.2, BUN seven, creatinine 0.9. Pulmonary function with decrease in flow. There is no evidence of gross airway obstruction, airway restriction suspect IMPRESSION 1. Coronary artery disease for coronary artery bypass graft 2. No evidence of COPD 3. Bilateral pulmonary emboli by history. 4. Hyperlipidemia. 5. History of CVA. PLAN Patient is without significant shortness of breath at present. We will continue oxygen therapy. Bronchodilator if needed. There is no evidence to suggest COPD that one could see at present. He does have a restrictive pattern which may be related to his body habitus, underlying cardiac disease among others. I do thank you for asking me to partake in Mr. Julio's care. Mallory Tejada MD WWW/ /6:31 PM /7:06 PM
[2017-04-16] MEDS: ATORVASTATIN 20 MG TAB PO SCH (20:32)
[2017-04-17] VITALS (25 sets, daily range): BP systolic 117–140; BP diastolic 65–83; PULSE 58–87; RESP 18–19; TEMP 97.4–98.2; O2SAT 93–97
[2017-04-17] MEDS: LORazepam 0.5 MG TAB PO PRN ×2 (00:20→08:14)
[2017-04-17] MEDS: HYDROmorphone HCL PF 1 MG/ML VIAL IV PUSH PRN ×5 (01:34→21:46)
[2017-04-17] MEDS: RESP: ALBUTEROL 2.5 MG/IPRATROPIUM 0.5 MG NEB (SCH) INH (03:48)
[2017-04-17] MEDS: CHLORHEXIDINE GLUCONATE 2 % 1 PACK (2 CLOTHS) TOP SCH (04:00)
[2017-04-17] MEDS: INSULIN NovoLIN REGULAR SUPPLEMENTAL SCALE SQ SCH ×6 (04:00→20:00)
[2017-04-17] MEDS: SODIUM CHLORIDE 0.9% FLUSH 10 ML FLUSH IV FLUSH PRN (05:58)
[2017-04-17 06:43] LABS: MEAN CELL VOLUME 90.1 FL (80.0-100.0); MEAN CORPUSCULAR HGB CONC 34.4 % (32.0-36.0); PLATELET COUNT 204 TH/MM3 (150-450); RED BLOOD COUNT 3.55 MIL/MM3 (4.50-5.90); RED CELL DISTRIBUTION WIDTH 13.7 % (11.6-17.2); REVIEW FLAG FINAL; WHITE BLOOD COUNT 4.8 TH/MM3 (4.0-11.0)
[2017-04-17 06:54] LABS: APTT (PATIENT) 34.6 SEC (24.3-30.1)
[2017-04-17 07:13] LABS: BICARBONATE 32.8 MEQ/L (21.0-32.0); POTASSIUM 3.9 MEQ/L (3.5-5.1)
--- NOTE | 2017-04-17 07:32 | PD.CARD.PN ---
Subjective Subjective Remarks Pt reports occasional CP Objective Medications Current Medications Medications (Trade) Dose Ordered Sig/Dario Route Start Time Stop Time Status Last Admin (D50w (Vial) Inj) 25 ml UNSCH PRN IV PUSH 04/13/17 03:45 (NovoLIN R SUPPLEMENTAL SCALE) 1 Q4HR SQ 04/13/17 04:00 04/17/17 00:00 (Zofran Inj) 4 mg Q6H PRN IV 04/13/17 03:45 Miscellaneous Information 1 Q361D XX 04/13/17 03:45 (Chlorhexidine 2% Cloth) 3 pack Taper DAILY@04 TOP 04/13/17 04:00 04/09/18 03:59 04/16/17 04:00 (Chlorhexidine 2% Cloth) 3 pack UNSCH PRN TOP 04/13/17 03:45 (Jasmyne-Colace) 1 tab BID PO 04/13/17 09:00 04/16/17 20:31 (Aspirin) 325 mg DAILY PO 04/13/17 09:00 04/16/17 08:19 (Dilaudid Pf Inj) 0.5 mg Q4H PRN IV PUSH 04/13/17 04:15 04/17/17 05:58 (Lipitor) 20 mg HS PO 04/13/17 21:00 04/16/17 20:32 (Nitrostat Sl) 0.4 mg Q5M PRN SL 04/13/17 07:45 (NS Flush) 2 ml BID IV FLUSH 04/13/17 21:00 04/16/17 20:32 (NS Flush) 2 ml UNSCH PRN IV FLUSH 04/13/17 16:30 04/17/17 05:58 (Bactroban Nasal 2% Oint) 1 applic BID EACH NARE 04/13/17 21:00 04/18/17 20:59 04/16/17 20:31 (Heparin Inj) 5,000 units UNSCH PRN IV 04/13/17 22:30 Heparin Sodium (Porcine) 2500 units 2,500 units UNSCH PRN IV 04/13/17 22:30 04/14/17 20:28 (Heparin-D5W Inj) 250 ml @ 0 mls/hr TITRATE IV 04/13/17 16:30 04/16/17 15:18 (Roxicodone) 10 mg Q6H PRN PO 04/13/17 18:15 04/17/17 04:17 (Ativan) 0.5 mg Q6H PRN PO 04/14/17 08:45 04/17/17 00:20 (Protonix) 40 mg DAILY PO 04/14/17 11:00 04/16/17 08:19 (Lopressor) 12.5 mg Q12HR PO 04/15/17 09:00 04/16/17 20:31 (Lasix) 40 mg BID@,18 PO 04/19/17 09:00 (Pill Splitter) 1 ea UNSCH PRN OTHER 04/15/17 08:00 (Symbicort 160-4.5 Inh) 1 puff Q12HR INH 04/15/17 09:00 04/16/17 20:29 (Lyrica) 75 mg BID PO 04/15/17 13:00 04/16/17 20:31 (Effexor) 50 mg Q12HR PO 04/15/17 13:00 04/16/17 20:32 Vital Signs / I&O Vital Signs Date Time Temp Pulse Resp B/P Pulse Ox O2 Delivery O2 Flow Rate FiO2 04/17/17 06:29 18 04/17/17 05:18 18 04/17/17 05:15 72 04/17/17 04:00 83 04/17/17 03:54 93 Nasal Cannula 3.00 04/17/17 03:28 95 Nasal Cannula 3.00 04/17/17 03:00 74 04/17/17 03:00 97.5 84 18 124/79 93 04/17/17 02:00 68 04/17/17 01:00 70 04/17/17 00:00 76 04/16/17 23:30 97.0 74 18 114/69 94 04/16/17 23:17 95 Nasal Cannula 3.00 04/16/17 23:11 18 04/16/17 23:00 81 04/16/17 22:00 62 04/16/17 21:48 97 Nasal Cannula 3.00 04/16/17 21:00 70 04/16/17 20:00 98.6 76 18 125/79 94 04/16/17 20:00 82 04/16/17 20:00 94 Nasal Cannula 4.00 04/16/17 19:00 82 04/16/17 18:00 77 04/16/17 17:00 89 04/16/17 16:00 87 04/16/17 15:00 96 3.00 04/16/17 15:00 63 04/16/17 15:00 98.1 68 17 120/75 97 04/16/17 14:00 72 04/16/17 13:00 89 04/16/17 12:00 65 04/16/17 11:00 97.7 83 17 133/79 95 04/16/17 11:00 90 04/16/17 11:00 96 Nasal Cannula 3.00 Humidified 04/16/17 10:01 63 04/16/17 09:59 95 Nasal Cannula 3.50 04/16/17 09:20 97.9 74 16 139/77 93 04/16/17 09:20 96 3.00 04/16/17 09:00 69 04/16/17 07:35 95 Nasal Cannula 4.00 I/O 04/16/17 04/16/17 04/16/17 04/17/17 04/17/17 04/17/17 06:59 14:59 22:59 06:59 14:59 22:59 Intake Total 278 ml 1050 ml 240 ml Output Total 1300 ml 400 ml 775 ml 825 ml Balance -1022 ml -400 ml 275 ml -585 ml Intake Oral 120 ml 720 ml 240 ml IV Total 158 ml 330 ml Output Urine Total 1300 ml 400 ml 775 ml 825 ml Physical Exam GENERAL: Well developed, well nourished. No acute distress. HEENT: Jugular venous pressure is normal. CHEST: Lungs clear to auscultation bilaterally. Unlabored respiratory effort. CARDIAC: Regular rate and rhythm without 2/6 systolic murmur ABDOMEN: Soft, nontender, no hepatosplenomegaly. Bowel sounds present. EXTREMITIES: No clubbing, cyanosis, or edema. Laboratory Laboratory Tests Test 04/17/17 04:50 White Blood Count 4.8 TH/MM3 Red Blood Count 3.55 MIL/MM3 Hemoglobin 11.0 GM/DL Hematocrit 32.0 % Mean Corpuscular Volume 90.1 FL Mean Corpuscular Hemoglobin 31.0 PG Mean Corpuscular Hemoglobin 34.4 % Concent Red Cell Distribution Width 13.7 % Platelet Count 204 TH/MM3 Mean Platelet Volume 9.3 FL Activated Partial 34.6 SEC Thromboplast Time Sodium Level 137 MEQ/L Potassium Level 3.9 MEQ/L Chloride Level 99 MEQ/L Carbon Dioxide Level 32.8 MEQ/L Anion Gap 5 MEQ/L Blood Urea Nitrogen 19 MG/DL Creatinine 0.92 MG/DL Estimat Glomerular Filtration 84 ML/MIN Rate Random Glucose 89 MG/DL Calcium Level 8.8 MG/DL Blood Type B POSITIVE Antibody Screen NEGATIVE Crossmatch Leukocyte-Reduced Red Blood Cells Blood Bank Comment Assessment and Plan Problem List: (1) NSTEMI (non-ST elevated myocardial infarction) (2) CAD (coronary artery disease) (3) Intractable pain (4) Pulmonary edema (5) DM (diabetes mellitus) (6) Unsteady gait (7) MIRNA (acute kidney injury) Assessment and Plan NSTEMI- s/p cath with severe multivessel disease -CT surg --awaiting CABG - on heparin heparin -no change Acute systolic heart failure- EF 40% -reasonably compensated Lipids- statin COPD- Problem Qualifiers (1) CAD (coronary artery disease): Qualified Code: I25.110 - Coronary artery disease involving [place] coronary artery of [place] heart with unstable angina pectoris (2) DM (diabetes mellitus): Qualified Code: E11.59 - Type 2 diabetes mellitus with other circulatory complication, without long-term current use of insulin Riya Burris MD Apr 17, 2017 07:32
[2017-04-17] MEDS: MUPIROCIN 2% OINT 1 APPLIC/GM SYR EACH NARE SCH ×2 (08:12→21:25)
[2017-04-17] MEDS: PANTOPRAZOLE SOD 40 MG DELAYED RELEASE TAB PO SCH (08:13)
[2017-04-17] MEDS: PREGABALIN 75 MG CAP PO SCH ×2 (08:13→21:26)
[2017-04-17] MEDS: METOPROLOL TARTRATE 25 MG TAB PO SCH ×2 (08:14→21:26)
[2017-04-17] MEDS: VENLAFAXINE HCL 25 MG TAB PO SCH ×2 (08:14→21:26)
[2017-04-17] MEDS: ASPIRIN 325 MG TAB PO SCH (08:14)
[2017-04-17] MEDS: BUDESONIDE-FORMOTEROL 160/4.5 MCG INHALER INH SCH ×2 (08:21→21:25)
[2017-04-17] MEDS: DOCUSATE SODIUM 50 MG/SENNA 8.6 MG TAB PO SCH ×3 (08:21→21:25)
[2017-04-17] MEDS: SODIUM CHLORIDE 0.9% FLUSH 10 ML FLUSH IV FLUSH SCH ×2 (08:21→21:00)
--- NOTE | 2017-04-17 12:27 | HHI.PR ---
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 He endorses dyspnea on exertion. He originally denied chest pain on admission, but over the last hour or two has also developed substernal chest pain which is non-radiating. he states he has never had a heart attack before. Remainder of the ROS is negative unless otherwise stated. He had a prior PE back in September, but he states he stopped taking his anticoagulation a few weeks ago. In the ER he was found to have a room air saturation of 60%. He was placed on a NRB. He was given 80mg Lasix iv x 1. His BNP is 662, trop 2.58. He refused BiPAP and then his NRB. on my evaluation he is on 6L o2 by NC with spo2 92%. He has additionally refused Cuellar catheter placement. 04/14: Anxious overnight. Remained on pNRB overnight, no down to 50% VM. Echo- Estimated ejection fraction in the range of 35-40%. limited LV wall motion assessment moderate MR. Moderate TR. Moderate pulmonary hypertension present ( range 50-60 mmHg). Cardiac cath: 04/13 Severe multivessel disease. CTS Dr. Reid planning on CABG mid week. CXR unchanged on my review. Intermittent chest pain, but improved Hospitalist Notes: 04/16: Patient transfer to be followed by medical team, discussed with nurse Miss Avina in Intensive Care Unit, he is transferred to Cardiac floor, no nausea, vomit or diarrhea, asking for pain medicine, as per patient continue with thoracic pain and low back pain from trauma related to syncopal episodes. but stable awaiting for procedure to be performed this next . 04/18/1704/17: Stable in his bedroom, discussed with nurse Miss Shields, no nausea, vomit or diarrhea. Walking in his bedroom, totally asymptomatic. Objective Vital Signs Date Time Temp Pulse Resp B/P Pulse Ox O2 Delivery O2 Flow Rate FiO2 04/17/17 12:00 69 04/17/17 12:00 Nasal Cannula 3.00 04/17/17 12:00 97.6 81 18 140/65 97 04/17/17 11:26 16 04/17/17 11:00 82 04/17/17 10:55 20 04/17/17 10:22 96 Nasal Cannula 3.00 04/17/17 10:00 86 04/17/17 09:00 70 04/17/17 08:50 20 04/17/17 08:00 98.2 87 19 119/69 94 04/17/17 08:00 Nasal Cannula 3.00 04/17/17 08:00 79 04/17/17 07:32 97.5 84 18 124/79 93 04/17/17 07:00 80 04/17/17 05:15 72 04/17/17 04:00 83 04/17/17 03:54 93 Nasal Cannula 3.00 04/17/17 03:28 95 Nasal Cannula 3.00 04/17/17 03:00 74 04/17/17 03:00 97.5 84 18 124/79 93 04/17/17 02:00 68 04/17/17 01:00 70 04/17/17 00:00 76 04/16/17 23:30 97.0 74 18 114/69 94 04/16/17 23:17 95 Nasal Cannula 3.00 04/16/17 23:00 81 04/16/17 22:00 62 04/16/17 21:48 97 Nasal Cannula 3.00 04/16/17 21:00 70 04/16/17 20:00 98.6 76 18 125/79 94 04/16/17 20:00 82 04/16/17 20:00 94 Nasal Cannula 4.00 04/16/17 19:00 82 04/16/17 18:00 77 04/16/17 17:00 89 04/16/17 16:00 87 04/16/17 15:00 96 3.00 04/16/17 15:00 63 04/16/17 15:00 98.1 68 17 120/75 97 04/16/17 14:00 72 04/16/17 13:00 89 I/O 04/16/17 04/16/17 04/16/17 04/17/17 04/17/17 04/17/17 07:00 15:00 23:00 07:00 15:00 23:00 Intake Total 278 ml 1050 ml 240 ml Output Total 1300 ml 400 ml 775 ml 825 ml Balance -1022 ml -400 ml 275 ml -585 ml Intake Oral 120 ml 720 ml 240 ml IV Total 158 ml 330 ml Output Urine Total 1300 ml 400 ml 775 ml 825 ml Result Diagram: 04/17/17 0450 04/17/17 0450 Imaging Last Impressions Chest X-Ray 04/16/17 0600 Signed Impressions: Service Date/Time: Sunday, April 16, 2017 03:56 - CONCLUSION: Persistent left lower lung infiltrate and pleural effusion. Db Ramsay MD Lower Extremity Ultrasound 04/13/17 0000 Signed Impressions: Service Date/Time: Thursday, April 13, 2017 20:08 - CONCLUSION: Venous mapping study as described. Samir Nelson MD Carotid Artery Ultrasound 04/13/17 0000 Signed Impressions: Service Date/Time: Thursday, April 13, 2017 19:38 - CONCLUSION: Minimal plaque identified at the carotid bulbs bilaterally. No evidence of hemodynamically significant carotid stenosis. Canelo Rea MD CT Angiography 04/13/17 0000 Signed Impressions: Service Date/Time: Thursday, April 13, 2017 03:11 - CONCLUSION: 1. No evidence for pulmonary embolism. 2. Patchy groundglass densities with bibasilar consolidation and bilateral pleural effusions, likely CHF. 3. Coronary artery calcifications. Holden Lin MD Procedures Cardiac Catheterization Other Results Laboratory Tests Test 04/13/17 04/13/17 04/13/17 04/13/17 01:08 01:30 04:35 13:50 Venous Blood pH 7.24 Venous Blood Partial Pressure 63 mmHg CO2 Venous Blood Partial Pressure 37 mmHg O2 Venous Blood HCO3 26 mmol/L Venous Blood Oxygen Saturation 59 % Venous Blood Oxygen Content 10.2 Vol % Venous Blood Base Excess -0.3 mmol/L Blood Gas Inspired Oxygen 100 % B-Type Natriuretic Peptide 662 PG/ML Total Creatine Kinase 155 U/L Creatine Kinase MB 10.1 NG/ML Nasal Screen MRSA (PCR) MRSA NOT DETECTED Test 04/13/17 04/13/17 04/14/17 04/16/17 18:05 23:50 05:40 05:12 Urine Color YELLOW Urine Turbidity CLEAR Urine pH 5.0 Urine Specific [place] 1.024 Urine Protein NEG mg/dL Urine Glucose (UA) NEG mg/dL Urine Ketones NEG mg/dL Urine Occult Blood NEG Urine Nitrite NEG Urine Bilirubin NEG Urine Urobilinogen LESS THAN 2.0 MG/DL Urine Leukocyte Esterase NEG Urine RBC LESS THAN 1 /hpf Urine WBC 1 /hpf Microscopic Urinalysis Comment CULT NOT INDICATED Hemoglobin A1c 7.9 % Troponin I 4.08 NG/ML Blood Gas Puncture Site RT RADIAL Blood Gas Patient Temperature 98.6 Blood Gas HCO3 29 mmol/L Blood Gas Base Excess 4.0 mmol/L Blood Gas Oxygen Saturation 95 % Arterial Blood pH 7.37 Arterial Blood Partial 52 mmHg Pressure CO2 Arterial Blood Partial 98 mmHg Pressure O2 Arterial Blood Oxygen Content 14.5 Vol % Arterial Blood 1.3 % Carboxyhemoglobin Arterial Blood Methemoglobin 1.1 % Blood Gas Hemoglobin 10.8 G/DL 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 Blood Gas Liter Flow 13 L/M Triglycerides Level 138 MG/DL Cholesterol Level 150 MG/DL LDL Cholesterol 86 MG/DL HDL Cholesterol 36.5 MG/DL Cholesterol/HDL Ratio 4.10 RATIO Neutrophils (%) (Auto) 70.2 % Lymphocytes (%) (Auto) 16.1 % Monocytes (%) (Auto) 8.8 % Eosinophils (%) (Auto) 4.3 % Basophils (%) (Auto) 0.6 % Neutrophils # (Auto) 4.9 TH/MM3 Lymphocytes # (Auto) 1.1 TH/MM3 Monocytes # (Auto) 0.6 TH/MM3 Eosinophils # (Auto) 0.3 TH/MM3 Basophils # (Auto) 0.0 TH/MM3 CBC Comment DIFF FINAL Differential Comment Magnesium Level 1.6 MG/DL Total Bilirubin 0.6 MG/DL Aspartate Amino Transf 12 U/L (AST/SGOT) Alanine Aminotransferase 14 U/L (ALT/SGPT) Alkaline Phosphatase 90 U/L Total Protein 7.0 GM/DL Albumin 3.3 GM/DL Test 04/17/17 04:50 White Blood Count 4.8 TH/MM3 Red Blood Count 3.55 MIL/MM3 Hemoglobin 11.0 GM/DL Hematocrit 32.0 % Mean Corpuscular Volume 90.1 FL Mean Corpuscular Hemoglobin 31.0 PG Mean Corpuscular Hemoglobin 34.4 % Concent Red Cell Distribution Width 13.7 % Platelet Count 204 TH/MM3 Mean Platelet Volume 9.3 FL Activated Partial 34.6 SEC Thromboplast Time Sodium Level 137 MEQ/L Potassium Level 3.9 MEQ/L Chloride Level 99 MEQ/L Carbon Dioxide Level 32.8 MEQ/L Anion Gap 5 MEQ/L Blood Urea Nitrogen 19 MG/DL Creatinine 0.92 MG/DL Estimat Glomerular Filtration 84 ML/MIN Rate Random Glucose 89 MG/DL Calcium Level 8.8 MG/DL Blood Type B POSITIVE Antibody Screen NEGATIVE Crossmatch Leukocyte-Reduced Red Blood Cells Blood Bank Comment Objective Remarks GENERAL: Middle-aged male, lying in bed, in mild distress due to dyspnea and anxiety HEENT: Normocephalic. Atraumatic. Pupils equal, round, reactive, conjugate. Mucous membranes are moist NECK: Trachea is midline. There is no JVD. CHEST: Air entry equal bilaterally with scattered crackles, SPO2 98% on pNRB CARDIOVASCULAR: S1-S2 normal. I cannot appreciate any murmurs (Moderate MR on Echo) ABDOMEN: Soft, nontender, nondistended. No guarding. MUSCULOSKELETAL: Pulses 2+. No peripheral edema. NEUROLOGICAL: Alert awake oriented no focal deficits Medications and IVs Current Medications Medications (Trade) Dose Ordered Sig/Dario Route Start Time Stop Time Status Last Admin (D50w (Vial) Inj) 25 ml UNSCH PRN IV PUSH 04/13/17 03:45 (NovoLIN R SUPPLEMENTAL SCALE) 1 Q4HR SQ 04/13/17 04:00 04/17/17 11:11 (Zofran Inj) 4 mg Q6H PRN IV 04/13/17 03:45 Miscellaneous Information 1 Q361D XX 04/13/17 03:45 (Chlorhexidine 2% Cloth) 3 pack Taper DAILY@04 TOP 04/13/17 04:00 04/09/18 03:59 04/16/17 04:00 (Chlorhexidine 2% Cloth) 3 pack UNSCH PRN TOP 04/13/17 03:45 (Jasmyne-Colace) 1 tab BID PO 04/13/17 09:00 04/16/17 20:31 (Aspirin) 325 mg DAILY PO 04/13/17 09:00 04/17/17 08:14 (Dilaudid Pf Inj) 0.5 mg Q4H PRN IV PUSH 04/13/17 04:15 04/17/17 11:09 (Lipitor) 20 mg HS PO 04/13/17 21:00 04/16/17 20:32 (Nitrostat Sl) 0.4 mg Q5M PRN SL 04/13/17 07:45 (NS Flush) 2 ml BID IV FLUSH 04/13/17 21:00 04/16/17 20:32 (NS Flush) 2 ml UNSCH PRN IV FLUSH 04/13/17 16:30 04/17/17 05:58 (Bactroban Nasal 2% Oint) 1 applic BID EACH NARE 04/13/17 21:00 04/18/17 20:59 04/17/17 08:12 (Heparin Inj) 5,000 units UNSCH PRN IV 04/13/17 22:30 Heparin Sodium (Porcine) 2500 units 2,500 units UNSCH PRN IV 04/13/17 22:30 04/14/17 20:28 (Heparin-D5W Inj) 250 ml @ 0 mls/hr TITRATE IV 04/13/17 16:30 04/16/17 15:18 (Roxicodone) 10 mg Q6H PRN PO 04/13/17 18:15 04/17/17 10:23 (Ativan) 0.5 mg Q6H PRN PO 04/14/17 08:45 04/17/17 08:14 (Protonix) 40 mg DAILY PO 04/14/17 11:00 04/17/17 08:13 (Lopressor) 12.5 mg Q12HR PO 04/15/17 09:00 04/17/17 08:14 (Lasix) 40 mg BID@09,18 PO 04/19/17 09:00 (Pill Splitter) 1 ea UNSCH PRN OTHER 04/15/17 08:00 (Symbicort 160-4.5 Inh) 1 puff Q12HR INH 04/15/17 09:00 04/17/17 08:21 (Lyrica) 75 mg BID PO 04/15/17 13:00 04/17/17 08:13 (Effexor) 50 mg Q12HR PO 04/15/17 13:00 04/17/17 08:14 A/P Assessment and Plan 1. Acute Hypoxic and Hypercarbic Respiratory Failure, continue Oxygen to keep Oxygen saturation over 90%, BiPAP as tolerated Bronchodilator, Mucolytic and Incentive Spirometry 2. CHF exacerbation/NSTEMI and Hypoxemia, in a patient with status post Cardiac Catheterization showed Severe Multivessel Coronary artery disease, Cardiothoracic Surgery planning CABG mid week, continue Heparin, Aspirin, Beta Blockers and aggressive forced diuresis Echocardiogram EF 35-40%, Moderate MR, Lasix 80 mg IV every six hours. 3. NSTEMI/Moderate MR Nitroglycerine, Beta blockers. anticoagulation with Heparin. Aspirin, Cardiology Dr. Burris- Cath shows severe multivessel CAD. Dr. Reid from CTS following, plan for CABG mid week per him. He is aware of moderate MR. 4. COPD to continue Bronchodilator, Mucolytic and incentive spirometry. 5. Electrolyte derangement replacing 6. History of Prior Pulmonary Emboli on Heparin drip cardiac diet as tolerated DVT prophylaxis with Heparin drip. No changes to anterior assessment. Discharge Planning Once cleared by Specialists. Tim Grubbs MD Apr 17, 2017 12:27
[2017-04-17 14:50] LABS: APTT (PATIENT) 52.5 SEC (24.3-30.1)
--- NOTE | 2017-04-17 16:23 | PD.CAR.PN ---
CVT Progress Note Subjective/Hospital Course: 56/ male [facility] patient hx of prior CVA and prior PE ( September ) stopped taking his anticoagulation a few weeks ago. Presented to ED with SOB, worsening on exertion , room air sat 60%, he was placed on NRB mask diuresed, then later refused Bipap ventilation , he uses 02 2 liters at home. Developed chest pain on admission Trop 2.58, BNP 662. 2decho showed EF 35-40% moderate MR, moderate TR, moderate pulm HTN 50-60mmhg admitted with hypoxic resp failure, NSTEMI, COPD excacerbation , pulm edema , MIRNA, pt underwent cardiac cath by Dr Burris : multi vessel disease PMH: CVA , COPD, Hx . Bilateral PE - noncompliance. The patient has not taking his Xarelto, Hypertension, Hyperlipidemia, Diabetes with neuropathy, GERD, Pneumonia, Frequent falls, Encephalopathy orthostatic hypotension PFT's FEV1 1.38 43% predicted 04/16 pt remains on 4 liter nasal cannula at night, 2 liters during the day, still has some rales right lower lobe will consult Pulmonology for clearance for surgery and , CT chest did show bilateral pleural effusion R>L plan at this time is for surgery scheduled 04/18 plan is surgery on 04/17 pt on nasal cannula 3 liters appreciate pulmonary input pt was actually only on home 02 for a couple weeks following his last admission he was off 02 weeks before this readmission PFT with some restrictive disease for OR in am Objective: GENERAL: SKIN: Warm and dry. HEAD: Normocephalic. EYES: No scleral icterus. No injection or drainage. NECK: Supple, trachea midline. No JVD or lymphadenopathy. CARDIOVASCULAR: Regular rate and rhythm without murmurs, gallops, or rubs. RESPIRATORY: few basilar crackles R>L . No accessory muscle use. GASTROINTESTINAL: Abdomen soft, non-tender, nondistended. MUSCULOSKELETAL: No cyanosis, or edema. BACK: Nontender without obvious deformity. No CVA tenderness. Vital Signs Date Time Temp Pulse Resp B/P Pulse Ox O2 Delivery O2 Flow Rate FiO2 04/17/17 16:00 Nasal Cannula 3.00 04/17/17 15:00 68 04/17/17 14:00 76 04/17/17 13:00 58 04/17/17 12:00 69 04/17/17 12:00 Nasal Cannula 3.00 04/17/17 12:00 97.6 81 18 140/65 97 04/17/17 11:26 16 04/17/17 11:00 82 04/17/17 10:55 20 04/17/17 10:22 96 Nasal Cannula 3.00 04/17/17 10:00 86 04/17/17 09:00 70 04/17/17 08:50 20 04/17/17 08:00 98.2 87 19 119/69 94 04/17/17 08:00 Nasal Cannula 3.00 04/17/17 08:00 79 04/17/17 07:32 97.5 84 18 124/79 93 04/17/17 07:00 80 04/17/17 05:15 72 04/17/17 04:00 83 04/17/17 03:54 93 Nasal Cannula 3.00 04/17/17 03:28 95 Nasal Cannula 3.00 04/17/17 03:00 74 04/17/17 03:00 97.5 84 18 124/79 93 04/17/17 02:00 68 04/17/17 01:00 70 04/17/17 00:00 76 04/16/17 23:30 97.0 74 18 114/69 94 04/16/17 23:17 95 Nasal Cannula 3.00 04/16/17 23:00 81 04/16/17 22:00 62 04/16/17 21:48 97 Nasal Cannula 3.00 04/16/17 21:00 70 04/16/17 20:00 98.6 76 18 125/79 94 04/16/17 20:00 82 04/16/17 20:00 94 Nasal Cannula 4.00 04/16/17 19:00 82 04/16/17 18:00 77 04/16/17 17:00 89 Labs: Laboratory Tests Test 04/17/17 04/17/17 04:50 14:03 White Blood Count 4.8 TH/MM3 (4.0-11.0) Red Blood Count 3.55 MIL/MM3 (4.50-5.90) Hemoglobin 11.0 GM/DL (13.0-17.0) Hematocrit 32.0 % (39.0-51.0) Mean Corpuscular Volume 90.1 FL (80.0-100.0) Mean Corpuscular Hemoglobin 31.0 PG (27.0-34.0) Mean Corpuscular Hemoglobin 34.4 % Concent (32.0-36.0) Red Cell Distribution Width 13.7 % (11.6-17.2) Platelet Count 204 TH/MM3 (150-450) Mean Platelet Volume 9.3 FL (7.0-11.0) Activated Partial 34.6 SEC 52.5 SEC Thromboplast Time (24.3-30.1) (24.3-30.1) Sodium Level 137 MEQ/L (136-145) Potassium Level 3.9 MEQ/L (3.5-5.1) Chloride Level 99 MEQ/L (98-107) Carbon Dioxide Level 32.8 MEQ/L (21.0-32.0) Anion Gap 5 MEQ/L (5-15) Blood Urea Nitrogen 19 MG/DL (7-18) Creatinine 0.92 MG/DL (0.60-1.30) Estimat Glomerular Filtration 84 ML/MIN (>89) Rate Random Glucose 89 MG/DL (74-106) Calcium Level 8.8 MG/DL (8.5-10.1) Blood Type B POSITIVE Antibody Screen NEGATIVE Crossmatch Leukocyte-Reduced Red Blood Cells Blood Bank Comment Result Diagram: 04/17/1744904/17/17449 Telemetry: NSR (1) NSTEMI (non-ST elevated myocardial infarction) Plan: ASA, statin , BB , Heparin for surgery in am (2) CAD (coronary artery disease) (3) Intractable pain (4) Pulmonary edema Plan: on diuretics (5) DM (diabetes mellitus) Plan: hgb a1c 7.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
--- NOTE | 2017-04-17 19:05 | HHI.PR ---
Subjective Remarks ALERT SITTING IN CHAIR NO SOB Objective Vital Signs Date Time Temp Pulse Resp B/P Pulse Ox O2 Delivery O2 Flow Rate FiO2 04/17/17 18:00 78 04/17/17 17:00 74 04/17/17 16:47 20 04/17/17 16:00 98.2 81 18 117/72 95 04/17/17 16:00 Nasal Cannula 3.00 04/17/17 16:00 69 04/17/17 15:00 68 04/17/17 14:00 76 04/17/17 13:00 58 04/17/17 12:00 69 04/17/17 12:00 Nasal Cannula 3.00 04/17/17 12:00 97.6 81 18 140/65 97 04/17/17 11:00 82 04/17/17 10:55 20 04/17/17 10:22 96 Nasal Cannula 3.00 04/17/17 10:00 86 04/17/17 09:00 70 04/17/17 08:50 20 04/17/17 08:00 98.2 87 19 119/69 94 04/17/17 08:00 Nasal Cannula 3.00 04/17/17 08:00 79 04/17/17 07:32 97.5 84 18 124/79 93 04/17/17 07:00 80 04/17/17 05:15 72 04/17/17 04:00 83 04/17/17 03:54 93 Nasal Cannula 3.00 04/17/17 03:28 95 Nasal Cannula 3.00 04/17/17 03:00 74 04/17/17 03:00 97.5 84 18 124/79 93 04/17/17 02:00 68 04/17/17 01:00 70 04/17/17 00:00 76 04/16/17 23:30 97.0 74 18 114/69 94 04/16/17 23:17 95 Nasal Cannula 3.00 04/16/17 23:00 81 04/16/17 22:00 62 04/16/17 21:48 97 Nasal Cannula 3.00 04/16/17 21:00 70 04/16/17 20:00 98.6 76 18 125/79 94 04/16/17 20:00 82 04/16/17 20:00 94 Nasal Cannula 4.00 I/O 804/16/17 04/16/17 04/17/17 04/17/17 04/17/17 07:00 15:00 23:00 07:00 15:00 23:00 Intake Total 278 ml 1050 ml 240 ml 688 ml Output Total 1300 ml 400 ml 775 ml 825 ml 200 ml Balance -1022 ml -400 ml 275 ml -585 ml 488 ml Intake Oral 120 ml 720 ml 240 ml 600 ml IV Total 158 ml 330 ml 88 ml Output Urine Total 1300 ml 400 ml 775 ml 825 ml 200 ml # Voids 3 # Bowel Movements 0 Result Diagram: 04/17/17 04504/17/17 0450 Procedures Cardiac Catheterization Objective Remarks GENERAL: SKIN: Warm and dry. HEAD: Atraumatic. Normocephalic. EYES: Pupils equal and round. No scleral icterus. No injection or drainage. ENT: No nasal bleeding or discharge. Mucous membranes pink and moist. NECK: Trachea midline. No JVD. CARDIOVASCULAR: Regular rate and rhythm. RESPIRATORY: No accessory muscle use. Clear to auscultation. Breath sounds equal bilaterally. GASTROINTESTINAL: Abdomen soft, non-tender, nondistended. Hepatic and splenic margins not palpable. MUSCULOSKELETAL: Extremities without clubbing, cyanosis, or edema. No obvious deformities. NEUROLOGICAL: Awake and alert. No obvious cranial nerve deficits. Motor grossly within normal limits. Five out of 5 muscle strength in the arms and legs. Normal speech. PSYCHIATRIC: Appropriate mood and affect; insight and judgment normal. Assessment and Plan Assessment and Plan ASS CAD PLAN FOR CABG Mallory Tejada MD Apr 17, 2017 19:04
[2017-04-17] MEDS: ATORVASTATIN 20 MG TAB PO SCH (21:26)
[2017-04-17 22:29] LABS: APTT (PATIENT) 50.1 SEC (24.3-30.1)
[2017-04-18] VITALS (15 sets, daily range): BP systolic 110–140; BP diastolic 48–81; PULSE 60–95; RESP 12–20; TEMP 97.5–98.8; O2SAT 90–100
[2017-04-18] MEDS: CHLORHEXIDINE GLUCONATE 2 % 1 PACK (2 CLOTHS) TOP SCH (04:00)
[2017-04-18] MEDS: INSULIN NovoLIN REGULAR SUPPLEMENTAL SCALE SQ SCH ×2 (04:00)
[2017-04-18] MEDS ORDERED: DEXMEDETOMIDINE INJ 50 ML IV ONE (05:00)
[2017-04-18] MEDS ORDERED: AMINOCAPROIC ACID INJ 250 MG/ML 20 ML VIAL IV ONE ×2 (05:00→12:00)
[2017-04-18] MEDS ORDERED: PROTAMINE SULFATE 250 MG/25 ML VIAL IV ONE (05:00)
[2017-04-18] MEDS ORDERED: PHENYLEPHRINE HCL 10 MG/ML VIAL IV ONE (05:00)
[2017-04-18] MEDS ORDERED: ARTIFICIAL TEARS OPTH OINT 3.5 APPLIC/3.5 GM TUBO ONE (05:00)
[2017-04-18] MEDS ORDERED: CALCIUM CHLORIDE 10% SOLN 1 GRAM/10 ML SYR IV ONE (05:00)
[2017-04-18] MEDS ORDERED: MAGNESIUM SULFATE 1000 MG/2 ML VIAL (PED) IV ONE (05:00)
[2017-04-18] MEDS ORDERED: HEPARIN SODIUM - SQ 10,000 UNITS/ML VIAL SQ ONE (05:00)
[2017-04-18] MEDS: METOPROLOL TARTRATE 25 MG TAB PO SCH (06:27)
[2017-04-18] MEDS ORDERED: VANCOMYCIN HCL 1000 MG VIAL ONE (06:40)
[2017-04-18] MEDS ORDERED: HEPARIN SODIUM - SQ 10,000 UNITS/ML VIAL ONE (06:40)
[2017-04-18] MEDS ORDERED: ceFAZolin 2 GM PREMIX 50 ML ONE (06:40)
[2017-04-18] MEDS ORDERED: methylPREDNISolone SOD SUCC 125 MG/2 ML VIAL ONE (06:41)
[2017-04-18 06:54] LABS: APTT (PATIENT) 35.7 SEC (24.3-30.1)
[2017-04-18 06:55] LABS: HEMATOCRIT 31.3 % (39.0-51.0); MEAN CELL VOLUME 90.5 FL (80.0-100.0); MEAN CORPUSCULAR HEMOGLOBIN 30.2 PG (27.0-34.0); MEAN CORPUSCULAR HGB CONC 33.4 % (32.0-36.0); PLATELET COUNT 179 TH/MM3 (150-450); RED BLOOD COUNT 3.46 MIL/MM3 (4.50-5.90); RED CELL DISTRIBUTION WIDTH 13.6 % (11.6-17.2); REVIEW FLAG FINAL; WHITE BLOOD COUNT 3.5 TH/MM3 (4.0-11.0)
[2017-04-18 07:18] LABS: BICARBONATE 31.8 MEQ/L (21.0-32.0); POTASSIUM 4.7 MEQ/L (3.5-5.1)
[2017-04-18] MEDS ORDERED: POTASSIUM CHLORIDE 40 MEQ/20 ML VIAL ONE (07:24)
[2017-04-18] MEDS ORDERED: CARDIOPLEGIC IRR 1,000 ML ONE (07:24)
[2017-04-18] MEDS ORDERED: MANNITOL INJ 50 ML ONE (07:25)
[2017-04-18] MEDS ORDERED: HEPARIN SODIUM - IV 10,000 UNITS/10 ML VIAL ONE (07:25)
[2017-04-18] MEDS ORDERED: ALBUMIN HUMAN 25% 12.5 GM/50 ML BAGP IV ONE (07:27)
[2017-04-18] MEDS ORDERED: CHLORHEXIDINE GLUCONATE 2 % 1 PACK (2 CLOTHS) TOPICAL ONE (07:30)
[2017-04-18] MEDS ORDERED: DEXTROSE 50% IN WATER 50 ML SYRINGE ONE ×2 (10:36→14:57)
[2017-04-18] MEDS ORDERED: SUGAMMADEX SODIUM 200 MG/2 ML VIAL IV PUSH ONE ×2 (11:49)
[2017-04-18] MEDS ORDERED: LACTATED RINGER'S 1000 ML INJ 500 ML IV PRN (11:53)
[2017-04-18] MEDS ORDERED: SODIUM CHLORID 0.9% 500 ML INJ 500 ML IV ONE (12:00)
[2017-04-18] MEDS ORDERED: ACETAMINOPHEN 650 MG SUPP RECTAL PRN (12:00)
[2017-04-18] MEDS ORDERED: VECURONIUM BROMIDE 10 MG VIAL IV ONE (12:00)
[2017-04-18] MEDS ORDERED: ONDANSETRON HCL 4 MG/2 ML VIAL IV PUSH PRN (12:00)
[2017-04-18] MEDS ORDERED: MAGNESIUM SULFATE INJ 2 GM in SODIUM CHLORIDE 0.9% INJ 100 ML IV PRN ×4 (12:00)
[2017-04-18] MEDS ORDERED: NORMOSOL R INJ 2,000 ML IV ONE (12:00)
[2017-04-18] MEDS ORDERED: RESP: ALBUTEROL 2.5 MG/IPRATROPIUM 0.5 MG NEB (PRN) NEB (12:00)
[2017-04-18] MEDS ORDERED: POTASSIUM CHLOR 20 MEQ PREMIX 100 ML IV PRN ×3 (12:00)
[2017-04-18] MEDS ORDERED: DEXTROSE 50% IN WATER 50 ML VIAL(D50) IV PUSH PRN (12:00)
[2017-04-18] MEDS ORDERED: CALCIUM CHLORIDE INJ 1 GM in SODIUM CHLORIDE 0.9% INJ 100 ML IV PRN (12:00)
[2017-04-18] MEDS ORDERED: SODIUM CHLORIDE 0.9% INJ 100 ML IV ONE (12:00)
[2017-04-18] MEDS ORDERED: CLEVIDIPINE INJ 50 ML IV SCH (12:00)
[2017-04-18] MEDS ORDERED: RESP: RACEPINEPHRINE 2.25% 0.5 ML NEB NEB PRN (12:00)
[2017-04-18] MEDS ORDERED: POTASSIUM CHLORIDE 20 MEQ CONTROLLED RELEASE TAB PO PRN ×2 (12:00)
[2017-04-18] MEDS ORDERED: ACETAMINOPHEN 325 MG TAB PO PRN (12:00)
[2017-04-18] MEDS ORDERED: METOPROLOL TARTRATE 5 MG/5 ML VIAL IV PUSH PRN (12:00)
[2017-04-18] MEDS ORDERED: ALBUMIN HUMAN 5% 12.5 GM/250 ML BOTTLE IV PRN (12:00)
[2017-04-18] MEDS ORDERED: SODIUM CHLOR 0.9% 250 ML INJ 500 ML IV ONE (12:00)
[2017-04-18] MEDS ORDERED: hydrALAZINE HCL 20 MG/ML VIAL IV PRN (12:00)
[2017-04-18] MEDS ORDERED: LACTATED RINGER'S 1000 ML INJ 1,000 ML IV ONE (12:00)
[2017-04-18] MEDS ORDERED: CALCIUM CHLORIDE 10% 1 GRAM/10 ML VIAL IV PRN (12:00)
[2017-04-18] MEDS ORDERED: INSULIN REGULAR (IV INFUSION) 100 UNITS in SODIUM CHLORIDE 0.9% INJ 99 ML IV SCH (12:00)
[2017-04-18] MEDS ORDERED: PROTAMINE SULFATE 50 MG/5 ML VIAL IV ONE (12:00)
--- NOTE | 2017-04-18 12:05 | PD.OP ---
cc: Riya Burris MD; Callie Falcon MD Operative Report Date of Surgery: Apr 18, 2017 Preoperative Diagnosis: (1) NSTEMI (non-ST elevated myocardial infarction) (2) CAD (coronary artery disease) Postoperative Diagnosis: same Procedure: CABG x 3 KERR to LAD - fair SVG to OM2 - fair SVG to PDA - good EVH Anesthesia: Dr. Holman Surgeon: Callie Falcon Line Repairer Tower(s): MURTAZA David Operation and Findings: The risks, benefits, complications, treatment options, and expected outcomes were discussed with the patient. The possibilities of reaction to medication, pulmonary aspiration, perforation of viscus, bleeding, recurrent infection, the need for additional procedures, failure to diagnose a condition, and creating a complication requiring transfusion or operation were discussed with the patient. The patient concurred with the proposed plan, giving informed consent. The site of surgery properly noted/marked. The patient was taken to Operating Room, identified as Vinicio Julio and the procedure verified as CABG, EVH, LUIZ. A Time Out was held and the above information confirmed. Standard monitoring lines and Cuellar catheter were placed. General anesthesia was induced. The patient was prepped and draped in a sterile fashion. A median sternotomy was performed and electrocautery was used to obtain hemostasis. The left internal mammary artery was procured as a pedicle from the 7th rib to the 1st rib in the usual manner. Simultaneously left greater saphenous vein was procured from the left leg using a minimally invasive endoscopic technique. The vein was prepared for anastomosis and the leg wound was irrigated and closed in 2 layers. The pericardium was opened and a pericardial sling was created using interrupted 0 silk sutures. The patient was heparinized for cardiopulmonary bypass and the distal mammary pedicle was instrumented for anastomosis. The heart was instrumented for cardiopulmonary bypass in the usual manner. Antegrade blood cardioplegia was employed. The patient was placed on cardiopulmonary bypass. An aortic cross-clamp was applied and the heart was arrested using cold blood cardioplegia. Antegrade cardioplegia was administered after he each anastomosis. After adequate arrest, the distal right coronary circulation was investigated and the PDA was opened with a Elim Ira blade and found to be a 1.5 millimeter good target. Saphenous vein was approximated to the PDA artery using a running 7 0 Prolene suture. The graft was measured for length and orientation and the proximal anastomosis was constructed to the ascending aorta using a running 5 0 Prolene suture after creating an aortotomy with a 5 millimeter punch. The 2nd circumflex marginal artery was then opened with a Elim Ira blade and found to be a 1 millimeter diffusely diseased fair target. Saphenous vein was approximated to the OM2 artery using a running 7 0 Prolene suture. The graft was measured for length and orientation and was suspended from the pericardium. The distal LAD was opened with a Elim Ira blade and found to be a 1 millimeter fair target with diffuse disease. The left internal mammary artery was approximated to the LAD using a running 7 0 Prolene suture. The pedicle was attached to the epicardium using interrupted 5 0 silk suture. The patient was systemically rewarmed and received a hotshot dose of warm blood cardioplegia. The aorta was vented and the proximal anastomosis to the O2 graft was accomplished using a running 5 0 Prolene suture after creating an aortotomy was a 5 millimeter punch. The cross-clamp was removed and all proximal and distal anastomoses were examined for hemostasis. The patient was weaned from cardiopulmonary bypass. Protamine was given. There was no adverse reaction. Decannulation was carried out without incident. Wound was checked for hemostasis which was obtained using electrocautery. A 36 [place] mediastinal and 32 [place] left pleural chest was were placed and secured to the skin with 0 silk suture. The sternum was closed with stainless steel wire. The fascia was closed with 1. PDS. The subcutaneous tissue was closed using a running 2-0 Vicryl suture. The skin was closed with 4-0 Monocryl. Sterile dressings were placed. At the end of the operation, all sponge, instruments, and needle counts were correct. The patient was transferred to the CVICU in stable condition. Findings: mild to moderate MR on LUIZ, slightly improved LV function after revascularization XC: 46 min CPB: 53 min Drains: mediastinal x 1 pleural x 1 Complications: none Disposition: to CVICU in stable condition Callie Falcon MD Apr 18, 2017 12:05
[2017-04-18] MEDS ORDERED: Post-op Orders (for Pharmacy) MISC OTHER ONE (12:14)
[2017-04-18 12:53] LABS: BLOOD GAS CARBOXYHEMOGLOBIN 1.5 % (0-4); BLOOD GAS HCO3 25 mmol/L (22-26); BLOOD GAS METHEMOGLOBIN 1.3 % (0-2); BLOOD GAS O2 HGB SATURATION 92 % (90-100); BLOOD GAS OXYGEN CONTENT 13.6 Vol % (12.0-20.0); BLOOD GAS PCO2 57 mmHg (38-42); BLOOD GAS PO2 82 mmHg (61-120); BLOOD GAS TOTAL HGB 10.5 G/DL (12.0-16.0); CRITICAL VALUE YES; OXYGEN DEVICE VENTILATOR; TEMP CORR TO 98.6
[2017-04-18 12:54] LABS: DRAW SITE ART LINE; FIO2 100 %; STAT NO
[2017-04-18] MEDS ORDERED: fentaNYL CITRATE 1000 MCG/20 ML VIAL ONE (13:12)
[2017-04-18] MEDS ORDERED: MIDAZOLAM HCL 5 MG/5 ML VIAL ONE ×2 (13:14→13:15)
[2017-04-18 13:41] LABS: POTASSIUM 4.3 MEQ/L (3.5-5.1)
--- NOTE | 2017-04-18 13:58 | RADRPT ---
EXAM DATE/TIME: 04/18/2017 12:44 [facility] COMPARISON: CHEST SINGLE AP, April 16, 2017, 3:56. INDICATIONS : S/p cabg. MEDICAL HISTORY : Stroke. Hypercholesterolemia. Hypertension. COPD, pneumonia, diabetes, shingles. pulmonary elboli sm SURGICAL HISTORY : None. ENCOUNTER: Initial ACUITY: 1 day PAIN SCORE: Non-responsive. LOCATION: Bilateral chest FINDINGS: A single portable frontal view of the chest shows interval median sternotomy. Endotracheal tube tip i s 12 cm cephalad to the sana. Nasogastric tube tip courses off the inferior margin of the film. Lef t-sided thoracostomy tube with the tip at the apex. A second catheter overlies the midline potentiall y related to a thoracostomy tube. Right-sided central line with the tip at the cavoatrial junction. N o pneumothorax. Bibasilar parenchymal consolidations. No effusions. Heart is normal in size. CONCLUSION: 1. Interval median sternotomy with life-support lines. Tip of the endotracheal tube is quite cephalad . 2. Bibasilar atelectasis. Db Scott Jr., MD on April 18, 2017 at 13:54 Board Certified Radiologist. This report was verified electronically.
[2017-04-18] MEDS: ACETAMINOPHEN 1000 MG/100 ML VIAL IV SCH ×2 (15:02→19:30)
[2017-04-18] MEDS: RESP: ALBUTEROL 2.5 MG/IPRATROPIUM 0.5 MG NEB (SCH) NEB ×2 (17:02→21:42)
[2017-04-18] MEDS: DOCUSATE SODIUM 50 MG/SENNA 8.6 MG TAB PO SCH (21:00)
[2017-04-18] MEDS: VENLAFAXINE HCL 25 MG TAB PO SCH (21:23)
[2017-04-18] MEDS: BUDESONIDE-FORMOTEROL 160/4.5 MCG INHALER INH SCH (21:23)
[2017-04-18] MEDS: PREGABALIN 75 MG CAP PO SCH (21:24)
[2017-04-18] MEDS: ATORVASTATIN 20 MG TAB PO SCH (21:24)
[2017-04-18] MEDS: SODIUM CHLORIDE 0.9% FLUSH 10 ML FLUSH IV FLUSH SCH (21:24)
--- NOTE | 2017-04-18 22:51 | HHI.PR ---
Subjective Remarks EXTUBATED POST OP NO DISTRESS Objective Vital Signs Date Time Temp Pulse Resp B/P Pulse Ox O2 Delivery O2 Flow Rate FiO2 04/18/17 21:43 96 Nasal Cannula 5.00 04/18/17 20:06 98 Nasal Cannula 5.00 04/18/17 19:00 60 04/18/17 18:30 98.4 89 16 110/64 98 111/62 04/18/17 16:00 91 18 135/51 94 04/18/17 16:00 91 04/18/17 16:00 94 Nasal Cannula 5.00 04/18/17 15:00 93 04/18/17 15:00 97.6 94 16 140/65 96 04/18/17 15:00 93 04/18/17 14:00 93 Nasal Cannula 5.00 04/18/17 13:40 50 04/18/17 13:40 93 Partial Non-Rebreather 15.00 04/18/17 13:40 100 Partial Rebreather 12 04/18/17 13:30 50 04/18/17 13:15 60 04/18/17 12:27 97 100 04/18/17 12:25 74 04/18/17 12:25 74 04/18/17 12:25 75 04/18/17 12:25 90 Mechanical Ventilator 75 04/18/17 12:25 98.0 74 12 111/64 90 116/48 04/18/17 06:36 97.5 76 18 120/65 94 04/18/17 04:50 95 Nasal Cannula 3.00 04/18/17 04:21 74 04/18/17 04:09 3.00 04/18/17 03:06 73 04/18/17 01:02 3.00 04/18/17 01:02 98.1 67 18 126/81 94 04/18/17 01:01 18 04/17/17 23:00 68 I/O 04/17/17 04/17/17 04/17/17 04/18/17 04/18/17 04/18/17 06:59 14:59 22:59 06:59 14:59 22:59 Intake Total 240 ml 688 ml 240 ml 2004 ml Output Total 825 ml 200 ml 450 ml 1330 ml Balance -585 ml 488 ml -210 ml 674 ml Intake Oral 240 ml 600 ml 240 ml 0 ml IV Total 88 ml 2004 ml Output Urine Total 825 ml 200 ml 450 ml 1100 ml Gastric Drainage Total 50 ml Chest Tube Drainage Total 180 ml # Voids 3 # Bowel Movements 0 1 1 Result Diagram: 04/18/17 0450 04/18/17 1300 Procedures Cardiac Catheterization Objective Remarks GENERAL: SKIN: Warm and dry. HEAD: Atraumatic. Normocephalic. EYES: Pupils equal and round. No scleral icterus. No injection or drainage. ENT: No nasal bleeding or discharge. Mucous membranes pink and moist. NECK: Trachea midline. No JVD. CARDIOVASCULAR: Regular rate and rhythm. RESPIRATORY: No accessory muscle use. Clear to auscultation. Breath sounds equal bilaterally. GASTROINTESTINAL: Abdomen soft, non-tender, nondistended. Hepatic and splenic margins not palpable. MUSCULOSKELETAL: Extremities without clubbing, cyanosis, or edema. No obvious deformities. NEUROLOGICAL: Awake and alert. No obvious cranial nerve deficits. Motor grossly within normal limits. Five out of 5 muscle strength in the arms and legs. Normal speech. PSYCHIATRIC: Appropriate mood and affect; insight and judgment normal. Assessment and Plan Assessment and Plan ASS CAD POST CABG TODAY PLAN O2 NEEDED PULM. TOILET INCREASE ACTIVITY Mallory Tejada MD Apr 18, 2017 22:51
[2017-04-19] VITALS (22 sets, daily range): BP systolic 101–142; BP diastolic 49–78; PULSE 88–104; RESP 16–22; TEMP 97.6–98.8; O2SAT 92–100
[2017-04-19] MEDS: ACETAMINOPHEN 1000 MG/100 ML VIAL IV SCH ×2 (01:00→06:43)
[2017-04-19] MEDS: LORazepam 0.5 MG TAB PO PRN (01:11)
[2017-04-19] MEDS: CHLORHEXIDINE GLUCONATE 2 % 1 PACK (2 CLOTHS) TOP SCH (04:00)
[2017-04-19 04:27] LABS: MEAN CELL VOLUME 91.2 FL (80.0-100.0); MEAN CORPUSCULAR HEMOGLOBIN 31.4 PG (27.0-34.0); MEAN CORPUSCULAR HGB CONC 34.4 % (32.0-36.0); PLATELET COUNT 135 TH/MM3 (150-450); RED BLOOD COUNT 2.53 MIL/MM3 (4.50-5.90); RED CELL DISTRIBUTION WIDTH 13.8 % (11.6-17.2); REVIEW FLAG FINAL; WHITE BLOOD COUNT 4.7 TH/MM3 (4.0-11.0)
[2017-04-19] MEDS: RESP: ALBUTEROL 2.5 MG/IPRATROPIUM 0.5 MG NEB (SCH) NEB ×4 (04:31→20:24)
[2017-04-19 04:53] LABS: BICARBONATE 27.4 MEQ/L (21.0-32.0); MAGNESIUM 2.3 MG/DL (1.5-2.5); POTASSIUM 4.4 MEQ/L (3.5-5.1)
--- NOTE | 2017-04-19 04:55 | RADRPT ---
EXAM DATE/TIME: 04/19/2017 04:01 [place] COMPARISON: CHEST SINGLE AP, April 18, 2017, 12:44. INDICATIONS : Status post CABG. MEDICAL HISTORY : Stroke. Hypercholesterolemia. Hypertension. COPD, pneumonia, diabetes, shingles. pulmonary elbolism. SURGICAL HISTORY : None. ENCOUNTER: Subsequent ACUITY: 1 week PAIN SCORE: Non-responsive. LOCATION: chest FINDINGS: A single view of the chest demonstrates improving aeration in the right base with developing atelecta sis/effusion in the left base. Left-sided thoracostomy tube without pneumothorax. Endotracheal and na sogastric tubes have been removed. Right IJ central venous catheter with the tip projecting over the central venous system. Sideplate and osseous screws secure an old left clavicular fracture. Findings of prior CABG. CONCLUSION: 1. Improving aeration in the right base with developing airspace consolidation/effusion in the left b ase. 2. Interval removal of the endotracheal and nasogastric tubes. 3. Stable position of left-sided thoracostomy tube without pneumothorax. Kush Vigil MD on April 19, 2017 at 4:52 Board Certified Radiologist. This report was verified electronically.
[2017-04-19] MEDS: PANTOPRAZOLE SOD 40 MG DELAYED RELEASE TAB PO SCH (06:43)
[2017-04-19] MEDS ORDERED: FUROSEMIDE 40 MG TAB PO SCH (09:00)
[2017-04-19] MEDS: SODIUM CHLORIDE 0.9% FLUSH 10 ML FLUSH IV FLUSH SCH ×2 (09:07→21:28)
[2017-04-19] MEDS: PREGABALIN 75 MG CAP PO SCH ×2 (09:08→21:22)
[2017-04-19] MEDS: ASPIRIN 81 MG CHEW TAB PO SCH (09:08)
[2017-04-19] MEDS: DOCUSATE SODIUM 50 MG/SENNA 8.6 MG TAB PO SCH (09:08)
[2017-04-19] MEDS: BUDESONIDE-FORMOTEROL 160/4.5 MCG INHALER INH SCH ×2 (09:11→21:24)
--- NOTE | 2017-04-19 09:21 | EKG ---
Date Performed: 04/19/2017 Time Performed: 03:57:38 PTAGE: 56 years EKG: Sinus rhythm . Inferior infarct - age undetermined Lateral T wave changes are nonspecific Compared to previous tra cing Q waves are now present in aVF consistent with inferior infarct. This is new since prior tracing . Clinical correlation is recommended Abnormal ECG PREVIOUS TRACING : 04/13/2017 04.38 DOCTOR: Ben Yusuf Interpretating Date/Time 04/19/2017 09:17:42
[2017-04-19] MEDS: METOPROLOL TARTRATE 25 MG TAB PO SCH ×2 (09:30→21:22)
[2017-04-19] MEDS ORDERED: DEXTROSE 50% IN WATER 50 ML VIAL(D50) IV PRN (09:30)
[2017-04-19] MEDS ORDERED: GLUCAGON 1 MG/ML VIAL OTHER PRN (09:30)
[2017-04-19] MEDS ORDERED: SOD PHOSPHATE/SOD BIPHOSPHATE (ADULT) ENEMA 133ML RECTAL PRN (09:30)
[2017-04-19] MEDS: VENLAFAXINE HCL 25 MG TAB PO SCH ×2 (09:33→21:23)
[2017-04-19] MEDS ORDERED: FUROSEMIDE 40 MG/4 ML VIAL IV PUSH ONE (09:45)
[2017-04-19] MEDS ORDERED: POTASSIUM CHLORIDE 20 MEQ CONTROLLED RELEASE TAB PO ONE (09:45)
--- NOTE | 2017-04-19 09:45 | PD.CAR.PN ---
CVT Progress Note CVT: POD #: 1 Subjective/Hospital Course: 56/ [facility] hx of prior CVA and prior PE ( September ) stopped taking his anticoagulation a few weeks ago. Presented to ED with SOB, worsening on exertion , room air sat 60%, he was placed on NRB mask diuresed, then later refused Bipap ventilation , he uses 02 2 liters at home. Developed chest pain on admission Trop 2.58, BNP 662. 2decho showed EF 35-40% moderate MR, moderate TR, moderate pulm HTN 50-60mmhg admitted with hypoxic resp failure, NSTEMI, COPD excacerbation , pulm edema , MINRA, pt underwent cardiac cath by Dr Burris : multi vessel disease PMH: CVA , COPD, Hx . Bilateral PE - noncompliance. The patient has not taking his Xarelto, Hypertension, Hyperlipidemia, Diabetes with neuropathy, GERD, Pneumonia, Frequent falls, Encephalopathy orthostatic hypotension PFT's FEV1 1.38 43% predicted 04/16 pt remains on 4 liter nasal cannula at night, 2 liters during the day, still has some rales right lower lobe will consult Pulmonology for clearance for surgery and , CT chest did show bilateral pleural effusion R>L plan at this time is for surgery scheduled 04/18 plan is surgery on 04/17 pt on nasal cannula 3 liters appreciate pulmonary input pt was actually only on home 02 for a couple weeks following his last admission he was off 02 weeks before this readmission PFT with some restrictive disease for OR in am 04/18 surgery: CABG x 3, KERR to LAD - fair, SVG to OM2 - fair, SVG to PDA - good , L EVH 04/19 on nasal cannula , up in chair very painful, toradol added / sternal precautions reinstructed weaned off insulin gtt, on insulin sliding scale / restart metformin in am pulm toileting, OOb ambulate transfer to stepdown Objective: GENERAL: SKIN: Warm and dry. prevena to chest , missael wrap to left leg HEAD: Normocephalic. EYES: No scleral icterus. No injection or drainage. NECK: Supple, trachea midline. No JVD or lymphadenopathy. CARDIOVASCULAR: Regular rate and rhythm without murmurs, gallops, or rubs. mild general edema RESPIRATORY: Breath sounds equal bilaterally. few basilar crackles , chest tube to wall suction / drained 180cc/ 12 hrs , no air leak No accessory muscle use. GASTROINTESTINAL: Abdomen soft, non-tender, nondistended. MUSCULOSKELETAL: No cyanosis, or edema. BACK: Nontender without obvious deformity. No CVA tenderness. Vital Signs Date Time Temp Pulse Resp B/P Pulse Ox O2 Delivery O2 Flow Rate FiO2 04/19/17 07:42 90 22 128/71 96 04/19/17 04:12 94 Nasal Cannula 5.00 04/19/17 04:12 98.7 88 20 101/56 95 103/49 04/19/17 03:09 90 04/18/17 23:20 20 129/75 95 126/54 04/18/17 23:20 98.8 93 04/18/17 23:20 95 Nasal Cannula 5.00 04/18/17 23:00 95 04/18/17 21:43 96 Nasal Cannula 5.00 04/18/17 20:06 98 Nasal Cannula 5.00 04/18/17 19:00 60 04/18/17 18:30 98.4 89 16 110/64 98 111/62 04/18/17 16:00 91 18 135/51 94 04/18/17 16:00 91 04/18/17 16:00 94 Nasal Cannula 5.00 04/18/17 15:00 93 04/18/17 15:00 97.6 94 16 140/65 96 04/18/17 15:00 93 04/18/17 14:00 93 Nasal Cannula 5.00 04/18/17 13:40 50 04/18/17 13:40 93 Partial Non-Rebreather 15.00 04/18/17 13:40 100 Partial Rebreather 12 04/18/17 13:30 50 04/18/17 13:15 60 04/18/17 12:27 97 100 04/18/17 12:25 74 04/18/17 12:25 74 04/18/17 12:25 75 04/18/17 12:25 90 Mechanical Ventilator 75 04/18/17 12:25 98.0 74 12 111/64 90 116/48 Labs: Laboratory Tests Test 04/19/17 03:42 White Blood Count 4.7 TH/MM3 (4.0-11.0) Red Blood Count 2.53 MIL/MM3 (4.50-5.90) Hemoglobin 7.9 GM/DL (13.0-17.0) Hematocrit 23.0 % (39.0-51.0) Mean Corpuscular Volume 91.2 FL (80.0-100.0) Mean Corpuscular Hemoglobin 31.4 PG (27.0-34.0) Mean Corpuscular Hemoglobin 34.4 % Concent (32.0-36.0) Red Cell Distribution Width 13.8 % (11.6-17.2) Platelet Count 135 TH/MM3 (150-450) Mean Platelet Volume 9.3 FL (7.0-11.0) Sodium Level 142 MEQ/L (136-145) Potassium Level 4.4 MEQ/L (3.5-5.1) Chloride Level 108 MEQ/L (98-107) Carbon Dioxide Level 27.4 MEQ/L (21.0-32.0) Anion Gap 7 MEQ/L (5-15) Blood Urea Nitrogen 20 MG/DL (7-18) Creatinine 0.88 MG/DL (0.60-1.30) Estimat Glomerular Filtration 89 ML/MIN (>89) Rate Random Glucose 74 MG/DL (74-106) Calcium Level 7.8 MG/DL (8.5-10.1) Magnesium Level 2.3 MG/DL (1.5-2.5) Result Diagram: 04/19/1734104/19/17 034 Telemetry: NSR (1) NSTEMI (non-ST elevated myocardial infarction) (2) CAD (coronary artery disease) (3) S/P CABG x 3 Plan: ASA, statin , BB , gentle diuresis nebs, ezpap acapella ambulate, CM to eval for C at discharge (4) Intractable pain Plan: on prn pain meds, scheduled Lyrica (5) DM (diabetes mellitus) Plan: hgb 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
--- NOTE | 2017-04-19 09:49 | HHI.FF ---
Face to Face Verification Diagnosis: (1) Pneumonia (2) DM (diabetes mellitus) (3) Unsteady gait (4) History of stroke (5) COPD exacerbation (6) CAD (coronary artery disease) (7) NSTEMI (non-ST elevated myocardial infarction) (8) S/P CABG (coronary artery bypass graft) Physical Therapy Order: Evaluate and Treat Home Health Nursing Order: Signs/symptoms of disease process Diabetic education CHF education Medication education-adverse effect Wound care and dressing changes Nursing assessment with vital signs Instructions: Heart and Vascular Surgery patients *Special attention to sternal dressing Mandatory frequency Assess and evaluation, 4 days in a row The next week 3X week 2 times a week for 4 weeks 1 time a week for 5 weeks Schedule Heart and Vascular patients for full 60 day certification period Initial visit Review Open Heart Surgery Discharge Instructions (Sternal precautions, Activity, Elastic hose, Incision care, Driving, Incentive spirometry, Smoking, Kermit, Work and other) Need Betadine to paint incision Medication reconciliation Importance of follow up care/ check on appointments Make calendar record temperature daily When to call [facility] at Home nurse, review instructions, phone list Incentive Spirometry, demonstration Visit 1- Begin discharge instruction for patient family and/ or caregiver using teach back method- Signs and symptoms of infection Disease characteristics Medicines and side effects Foods and nutrition/ appetite Infection control/ hand washing/ hygiene Visit 2- Continue teaching Discharge instructions- include additional information on smoking cessation , sternal dressing (sternal vac) Visit 3- Continue teaching- Cough and deep breathing, incision monitoring. Choose my plate Visit 4- Continue teaching- Discuss limitations Discuss how they are feeling Discuss progress toward goals Remaining visits- continue teaching and monitoring PREVENA Single Use Negative Wound Therapy System Caregiver Instruction Sheet 1. A Prevena dressing system was applied to the chest incision during surgery , to promote wound healing. It works via a suction device (negative pressure wound therapy) to remove low to moderate levels of exudate (drainage) and infectious materials. We recommend that the device stay in place for up to seven days, from day of surgery. 2. Day of Surgery___/ Day of Removal / 3. The dressing should only be removed by a health professional healthcare representative. Please arrange removal of device to coincide with Home Health visit and or with Nursing staff at Rehab 4. If skin reddening or irritation of skin occurs, or excessive drainage, please notify the Cardiovascular Surgeons office at [phone]. 5. Light showering is permissible; however the pump should be disconnected and placed in safe location, where it will not get wet. The dressing should not be exposed to direct spray or submerged in water. No bath tub / shower only. Ensure the end of the tubing attached to the dressing is facing down so that water does not enter the top of the tube. 6. To remove Prevena dressing: press purple button to turn off device / remove the suction. Then disconnect the tubing from the pump. The fixation strips should be stretched away from the skin and the dressing lifted at one corner and peeled back until it has been fully removed. 7. After removal, it is ok to shower daily using liquid dial soap and clean wash cloth, rinse and pat dry, and leave incision open to air dry. For any concerns regarding Prevena dressing, and or wounds, please contact Halina Kaminski, patient navigator at [phone] or notify the Cardiovascular Surgeons office at [phone]. Incentive spirometry Q1 hr x 10, while awake, also use acapella device hourly whole awake Sternal Breast Bone Precautions: NO pushing or pulling, ( pt must use sternal pillow to support chest with all activities and with coughing ( takes up to 3 months breast bone to heal ) Daily incision care: ok to shower daily, no tub bath. Wash all incisions with liquid dial soap, clean wash cloth to each site, rinse and pat dry. Observe for any signs of infection, such as drainage which is dark yellow, sampson, green or foul smelling. Immediately report to the surgeon any drainage from the chest incision, or legs, and for any abnormal drainage from the chest tube sites. Notify surgeon if any temp >101.5 degrees F. When specialty dressing removed/ or if you do not have one, continue to shower daily as above, then rinse and pat incision dry and paint with betadine daily x 5 days. Allow steri strips to fall off if you have any. Avoid lotions, creams, salves, oils, etc. for the first month Please see attached forms for additional instructions regarding post Open Heart specialty wound vacuum dressings. CARMEN or Prevena , Dressing to be removed by Nursing staff on For Dr. Falcon patients , please obtain CBC, BMP, PA & Lat CXR in 2 weeks, results to Dr. Falcon ( prescription will be given) ( ) (Tele: [phone]) , F/U appointment: as per SD instructions: PCP in 2 weeks, CV surgeon 2 weeks, Video Editor 3-4 weeks For any questions regarding incisions/ dressing / meds / post op care or above Symptoms, Saturday 8am-5pm Heart & Vascular Surgery Office ( Dr. Carrington & Dr. Falcon), After Hours / Nights (5pm -8am) Weekends and Holidays Please call [facility] Card[facility] ([facility]) Charge Nurse I have seen patient Vinicio Julio on 04/19/17. My clinical findings support the need for the requested home health care services because: Patient has SOB Deconditioned w/ increased weakness I certify that my clinical findings support that this patient is homebound because: Post-op weakness Unsteady gait/balance Chloe Gillespie Apr 19, 2017 09:48
[2017-04-19] MEDS ORDERED: BISACODYL 10 MG SUPP RECTAL PRN (10:00)
[2017-04-19] MEDS ORDERED: KETOROLAC TROMETHAMINE 60 MG/2 ML (IM) VIAL IM PRN (10:00)
[2017-04-19] MEDS: INSULIN ASPART SUPPLEMENTAL SCALE SQ SCH ×4 (10:22→23:06)
--- NOTE | 2017-04-19 10:31 | HHI.PR ---
Subjective Remarks ALERT NO SOB Objective Vital Signs Date Time Temp Pulse Resp B/P Pulse Ox O2 Delivery O2 Flow Rate FiO2 04/19/17 10:09 95 Nasal Cannula 5.00 04/19/17 07:42 90 22 128/71 96 04/19/17 04:12 94 Nasal Cannula 5.00 04/19/17 04:12 98.7 88 20 101/56 95 103/49 04/19/17 03:09 90 04/18/17 23:20 20 129/75 95 126/54 04/18/17 23:20 98.8 93 04/18/17 23:20 95 Nasal Cannula 5.00 04/18/17 23:00 95 04/18/17 21:43 96 Nasal Cannula 5.00 04/18/17 20:06 98 Nasal Cannula 5.00 04/18/17 19:00 60 04/18/17 18:30 98.4 89 16 110/64 98 111/62 04/18/17 16:00 91 18 135/51 94 04/18/17 16:00 91 04/18/17 16:00 94 Nasal Cannula 5.00 04/18/17 15:00 93 04/18/17 15:00 97.6 94 16 140/65 96 04/18/17 15:00 93 04/18/17 14:00 93 Nasal Cannula 5.00 04/18/17 13:40 50 04/18/17 13:40 93 Partial Non-Rebreather 15.00 04/18/17 13:40 100 Partial Rebreather 12 04/18/17 13:30 50 04/18/17 13:15 60 04/18/17 12:27 97 100 04/18/17 12:25 74 04/18/17 12:25 74 04/18/17 12:25 75 04/18/17 12:25 90 Mechanical Ventilator 75 04/18/17 12:25 98.0 74 12 111/64 90 116/48 I/O 04/18/17 04/18/17 04/18/17 04/19/17 04/19/17 04/19/17 06:59 14:59 22:59 06:59 14:59 22:59 Intake Total 240 ml 2004 ml 2440 ml Output Total 450 ml 1330 ml 1150 ml Balance -210 ml 674 ml 1290 ml Intake Oral 240 ml 0 ml 400 ml IV Total 2004 ml 2040 ml Output Urine Total 450 ml 1100 ml 1150 ml Gastric Drainage Total 50 ml Chest Tube Drainage Total 180 ml # Bowel Movements 1 1 0 Result Diagram: 04/19/17 0342 04/19/17 0342 Procedures Cardiac Catheterization Objective Remarks GENERAL: SKIN: Warm and dry. HEAD: Atraumatic. Normocephalic. EYES: Pupils equal and round. No scleral icterus. No injection or drainage. ENT: No nasal bleeding or discharge. Mucous membranes pink and moist. NECK: Trachea midline. No JVD. CARDIOVASCULAR: Regular rate and rhythm. RESPIRATORY: No accessory muscle use. DECREASE BREATH SOUNDS LEFT BASE GASTROINTESTINAL: Abdomen soft, non-tender, nondistended. Hepatic and splenic margins not palpable. MUSCULOSKELETAL: Extremities without clubbing, cyanosis, or edema. No obvious deformities. NEUROLOGICAL: Awake and alert. No obvious cranial nerve deficits. Motor grossly within normal limits. Five out of 5 muscle strength in the arms and legs. Normal speech. PSYCHIATRIC: Appropriate mood and affect; insight and judgment normal. Assessment and Plan Assessment and Plan ASS CAD POST CABG TODAY PLAN O2 NEEDED PULM. TOILET INCREASE ACTIVITY Mallory Tejada MD Apr 19, 2017 10:31
[2017-04-19] MEDS ORDERED: KETOROLAC TROMETHAMINE 30 MG/ML VIAL IM PRN (11:00)
[2017-04-19] MEDS: HYDROmorphone HCL PF 1 MG/ML VIAL IV PUSH PRN ×3 (12:03→22:52)
[2017-04-19] MEDS: SENNOSIDES 8.6 MG TAB PO SCH (21:00)
[2017-04-19] MEDS: DOCUSATE SODIUM 100 MG CAP PO SCH (21:00)
[2017-04-19] MEDS: ATORVASTATIN 20 MG TAB PO SCH (21:23)
[2017-04-19] MEDS: SODIUM CHLORIDE 0.9% FLUSH 10 ML FLUSH IV FLUSH PRN (21:27)
[2017-04-20] VITALS (29 sets, daily range): BP systolic 107–140; BP diastolic 59–79; PULSE 84–103; RESP 18–20; TEMP 97.1–98.6; O2SAT 96–100
[2017-04-20] MEDS: INSULIN ASPART SUPPLEMENTAL SCALE SQ SCH ×5 (02:49→21:19)
[2017-04-20] MEDS: PANTOPRAZOLE SOD 40 MG DELAYED RELEASE TAB PO SCH (05:47)
[2017-04-20] MEDS: HYDROmorphone HCL PF 1 MG/ML VIAL IV PUSH PRN ×4 (05:48→19:29)
[2017-04-20 06:07] LABS: AUTOMATED NEUTROPHIL # 4.3 TH/MM3 (1.8-7.7); BASOPHIL % 0.4 % (0.0-2.0); EOSINOPHIL # 0.1 TH/MM3 (0-0.4); EOSINOPHIL % 2.2 % (0.0-4.0); HEMATOCRIT 23.4 % (39.0-51.0); HEMO FLAGS DIFF FINAL; LYMPH % 12.7 % (9.0-44.0); LYMPHOCYTE # 0.8 TH/MM3 (1.0-4.8); MEAN CELL VOLUME 92.1 FL (80.0-100.0); MEAN CORPUSCULAR HEMOGLOBIN 31.1 PG (27.0-34.0); MEAN CORPUSCULAR HGB CONC 33.7 % (32.0-36.0); MONO % 19.3 % (0.0-8.0); NEUT % 65.4 % (16.0-70.0); PLATELET COUNT 141 TH/MM3 (150-450); RED BLOOD COUNT 2.54 MIL/MM3 (4.50-5.90); WHITE BLOOD COUNT 6.6 TH/MM3 (4.0-11.0)
[2017-04-20 06:37] LABS: BICARBONATE 28.4 MEQ/L (21.0-32.0); MAGNESIUM 1.9 MG/DL (1.5-2.5); POTASSIUM 4.5 MEQ/L (3.5-5.1)
--- NOTE | 2017-04-20 08:38 | HHI.PR ---
Subjective Remarks Stage Hand Notes: This is a 56yM with history of prior stroke and prior PE who presents with 1 day history of shortness of breath which has been worsening since earlier in the day. He endorses dyspnea on exertion. He originally denied chest pain on admission, but over the last hour or two has also developed substernal chest pain which is non-radiating. he states he has never had a heart attack before. Remainder of the ROS is negative unless otherwise stated. He had a prior PE back in September, but he states he stopped taking his anticoagulation a few weeks ago. In the ER he was found to have a room air saturation of 60%. He was placed on a NRB. He was given 80mg Lasix iv x 1. His BNP is 662, trop 2.58. He refused BiPAP and then his NRB. on my evaluation he is on 6L o2 by NC with spo2 92%. He has additionally refused Cuellar catheter placement. 04/14: Anxious overnight. Remained on pNRB overnight, no down to 50% VM. Echo- Estimated ejection fraction in the range of 35-40%. limited LV wall motion assessment moderate MR. Moderate TR. Moderate pulmonary hypertension present ( range 50-60 mmHg). Cardiac cath: 04/13 Severe multivessel disease. CTS Dr. Reid planning on CABG mid week. CXR unchanged on my review. Intermittent chest pain, but improved Hospitalist Notes: 04/16: Patient transfer to be followed by medical team, discussed with nurse Miss Avina in Intensive Care Unit, he is transferred to Cardiac floor, no nausea, vomit or diarrhea, asking for pain medicine, as per patient continue with thoracic pain and low back pain from trauma related to syncopal episodes. but stable awaiting for procedure to be performed this next . 04/18/1704/17: Stable in his bedroom, discussed with nurse Miss Shields, no nausea, vomit or diarrhea. Walking in his bedroom, totally asymptomatic. 818: Patient Out of Intensive Care Unit, now Status post CABG x 3, Left Internal Mammary Artery to LAD, Saphenous Vein Graft to OM2 Obtuse Marginal Branch, SVG to Posterior descending Coronary artery. Aspirin, Statin and Beta blockers , Diuretics, discussed with patient and nurse Miss Mckoy, he will have Chest tubes removed later today, continue Bronchodilator, Mucolytic and incentive spirometry, early ambulation. Objective Vital Signs Date Time Temp Pulse Resp B/P Pulse Ox O2 Delivery O2 Flow Rate FiO2 04/20/17 06:00 100 04/20/17 05:00 98 04/20/17 04:35 98.6 98 20 140/74 99 04/20/17 04:33 100 Nasal Cannula 4.00 04/20/17 04:00 102 04/20/17 03:00 103 04/20/17 02:00 100 04/20/17 01:00 96 04/20/17 00:28 100 Nasal Cannula 4.00 04/20/17 00:00 102 04/19/17 23:22 98.5 101 18 140/78 99 04/19/17 23:00 103 04/19/17 22:00 102 04/19/17 21:00 100 04/19/17 20:33 100 Nasal Cannula 4.00 04/19/17 20:28 94 Nasal Cannula 4.50 04/19/17 20:00 90 04/19/17 20:00 98.2 93 20 107/59 100 04/19/17 19:00 93 04/19/17 18:00 100 04/19/17 17:46 20 04/19/17 17:00 88 04/19/17 16:05 97.6 96 16 119/66 98 04/19/17 16:00 91 04/19/17 16:00 Nasal Cannula 4.00 04/19/17 15:00 92 04/19/17 14:55 16 04/19/17 14:00 96 04/19/17 13:00 94 04/19/17 12:34 16 04/19/17 12:18 97.6 104 18 142/72 99 04/19/17 12:00 98 04/19/17 11:26 16 04/19/17 11:00 98 04/19/17 11:00 98.7 100 18 113/66 96 Arterial Line 04/19/17 11:00 96 Nasal Cannula 5.00 04/19/17 10:09 95 Nasal Cannula 5.00 I/O 04/19/17 04/19/17 04/19/17 04/20/17 04/20/17 04/20/17 07:00 15:00 23:00 07:00 15:00 23:00 Intake Total 2440 ml 580 ml 820 ml Output Total 1150 ml 550 ml 1040 ml Balance 1290 ml 30 ml -220 ml Intake Oral 400 ml 480 ml 720 ml IV Total 2040 ml 100 ml 100 ml Output Urine Total 1150 ml 500 ml 1000 ml Chest Tube Drainage Total 50 ml 40 ml # Bowel Movements 0 Result Diagram: 04/20/17 0530 04/20/17 0530 Imaging Last Impressions Chest X-Ray 04/19/17 0500 Signed Impressions: Service Date/Time: Wednesday, April 19, 2017 04:01 - CONCLUSION: 1. Improving aeration in the right base with developing airspace consolidation/effusion in the left base. 2. Interval removal of the endotracheal and nasogastric tubes. 3. Stable position of left-sided thoracostomy tube without pneumothorax. Kush Vigil MD Lower Extremity Ultrasound 04/13/17 0000 Signed Impressions: Service Date/Time: Thursday, April 13, 2017 20:08 - CONCLUSION: Venous mapping study as described. Samir Nelson MD Carotid Artery Ultrasound 04/13/17 0000 Signed Impressions: Service Date/Time: Thursday, April 13, 2017 19:38 - CONCLUSION: Minimal plaque identified at the carotid bulbs bilaterally. No evidence of hemodynamically significant carotid stenosis. Canelo Rea MD CT Angiography 04/13/17 0000 Signed Impressions: Service Date/Time: Thursday, April 13, 2017 03:11 - CONCLUSION: 1. No evidence for pulmonary embolism. 2. Patchy groundglass densities with bibasilar consolidation and bilateral pleural effusions, likely CHF. 3. Coronary artery calcifications. Holden Lin MD Procedures Cardiac Catheterization CABG x 3 Other Results Laboratory Tests Test 04/16/17 04/17/17 04/18/17 04/18/17 05:12 04:50 04:50 12:40 Total Bilirubin 0.6 MG/DL Aspartate Amino Transf 12 U/L (AST/SGOT) Alanine Aminotransferase 14 U/L (ALT/SGPT) Alkaline Phosphatase 90 U/L Total Protein 7.0 GM/DL Albumin 3.3 GM/DL Blood Type B POSITIVE Antibody Screen NEGATIVE Crossmatch Leukocyte-Reduced Red Blood Cells Blood Bank Comment Activated Partial 35.7 SEC Thromboplast Time Blood Gas Puncture Site ART LINE Blood Gas Patient Temperature 98.6 Blood Gas HCO3 25 mmol/L Blood Gas Base Excess -1.0 mmol/L Blood Gas Oxygen Saturation 92 % Arterial Blood pH 7.27 Arterial Blood Partial 57 mmHg Pressure CO2 Arterial Blood Partial 82 mmHg Pressure O2 Arterial Blood Oxygen Content 13.6 Vol % Arterial Blood 1.5 % Carboxyhemoglobin Arterial Blood Methemoglobin 1.3 % Blood Gas Hemoglobin 10.5 G/DL Oxygen Delivery Device VENTILATOR Blood Gas Ventilator Setting IMV,12,500,PEP5,PS10 Blood Gas Inspired Oxygen 100 % Test 04/20/17 05:30 White Blood Count 6.6 TH/MM3 Red Blood Count 2.54 MIL/MM3 Hemoglobin 7.9 GM/DL Hematocrit 23.4 % Mean Corpuscular Volume 92.1 FL Mean Corpuscular Hemoglobin 31.1 PG Mean Corpuscular Hemoglobin 33.7 % Concent Red Cell Distribution Width 14.0 % Platelet Count 141 TH/MM3 Mean Platelet Volume 9.2 FL Neutrophils (%) (Auto) 65.4 % Lymphocytes (%) (Auto) 12.7 % Monocytes (%) (Auto) 19.3 % Eosinophils (%) (Auto) 2.2 % Basophils (%) (Auto) 0.4 % Neutrophils # (Auto) 4.3 TH/MM3 Lymphocytes # (Auto) 0.8 TH/MM3 Monocytes # (Auto) 1.3 TH/MM3 Eosinophils # (Auto) 0.1 TH/MM3 Basophils # (Auto) 0.0 TH/MM3 CBC Comment DIFF FINAL Differential Comment Sodium Level 141 MEQ/L Potassium Level 4.5 MEQ/L Chloride Level 105 MEQ/L Carbon Dioxide Level 28.4 MEQ/L Anion Gap 8 MEQ/L Blood Urea Nitrogen 19 MG/DL Creatinine 0.81 MG/DL Estimat Glomerular Filtration 98 ML/MIN Rate Random Glucose 93 MG/DL Calcium Level 8.6 MG/DL Magnesium Level 1.9 MG/DL Objective Remarks GENERAL: Middle-aged male, lying in bed, in mild distress due to dyspnea and anxiety HEENT: Normocephalic. Atraumatic. Pupils equal, round, reactive, conjugate. Mucous membranes are moist NECK: Trachea is midline. There is no JVD. CHEST: Air entry equal bilaterally with scattered crackles. anterior chest with dressed surgical wound and chest tubes in place. CARDIOVASCULAR: S1-S2 normal. ABDOMEN: Soft, nontender, nondistended. No guarding. MUSCULOSKELETAL: Pulses 2+. No peripheral edema. NEUROLOGICAL: Alert awake oriented no focal deficits Medications and IVs Current Medications Medications (Trade) Dose Ordered Sig/Dario Route Start Time Stop Time Status Last Admin (Dilaudid Pf Inj) 0.5 mg Q4H PRN IV PUSH 04/13/17 04:15 04/20/17 05:48 (Lipitor) 20 mg HS PO 04/13/17 21:00 04/19/17 21:23 (NS Flush) 2 ml BID IV FLUSH 04/13/17 21:00 04/19/17 21:28 (NS Flush) 2 ml UNSCH PRN IV FLUSH 04/13/17 16:30 04/19/17 21:27 (Roxicodone) 10 mg Q6H PRN PO 04/13/17 18:15 04/20/17 02:47 (Ativan) 0.5 mg Q6H PRN PO 04/14/17 08:45 04/19/17 01:11 (Pill Splitter) 1 ea UNSCH PRN OTHER 04/15/17 08:00 (Symbicort 160-4.5 Inh) 1 puff Q12HR INH 04/15/17 09:00 04/19/17 21:24 (Lyrica) 75 mg BID PO 04/15/17 13:00 04/19/17 21:22 (Effexor) 50 mg Q12HR PO 04/15/17 13:00 04/19/17 21:23 (Aspirin Chew) 81 mg DAILY PO 04/19/17 09:00 04/19/17 09:08 (Protonix) 40 mg DAILY@06 PO 04/19/17 06:00 04/20/17 05:47 (Tylenol) 650 mg Q4H PRN PO 04/18/17 12:00 (fentaNYL INJ) 25 mcg Q1H PRN IV 04/18/17 12:00 04/19/17 09:45 (Zofran Inj) 4 mg Q6H PRN IV PUSH 04/18/17 12:00 (Colace) 100 mg BID PO 04/19/17 21:00 (Theragran M Tab) 1 tab DAILY PO 04/20/17 09:00 (Milk Of Magnesia Liq) 30 ml DAILY PO 04/20/17 09:00 (Miralax) 17 gm DAILY PO 04/20/17 09:00 (Senokot) 8.6 mg HS PO 04/19/17 21:00 (Fleets Enema (Adult)) 133 ml UNSCH PRN RECTAL 04/19/17 09:30 (Lopressor) 12.5 mg BID PO 04/19/17 09:30 04/19/17 21:22 (D50w (Vial) Inj) 50 ml UNSCH PRN IV 04/19/17 09:30 (Glucagon Inj) 1 mg UNSCH PRN OTHER 04/19/17 09:30 (Glucophage) 850 mg BIDPC PO 04/20/17 09:00 (Toradol Inj) 15 mg Q6H PRN IM 04/19/17 11:00 04/21/17 10:59 04/19/17 12:03 A/P Assessment and Plan 1. Acute Hypoxic and Hypercarbic Respiratory Failure, continue Oxygen to keep Oxygen saturation over 90%, BiPAP as tolerated Bronchodilator, Mucolytic and Incentive Spirometry 2. CHF exacerbation/NSTEMI and Hypoxemia, in a patient with status post Cardiac Catheterization showed Severe Multivessel Coronary artery disease, Cardiothoracic Surgery planning CABG mid week, continue Heparin, Aspirin, Beta Blockers and aggressive forced diuresis Echocardiogram EF 35-40%, Moderate MR, Lasix 80 mg IV every six hours. 3. NSTEMI/Moderate MR Nitroglycerine, Beta blockers. anticoagulation with Heparin. Aspirin, Cardiology Dr. Burris- Cath shows severe multivessel CAD. Dr. Reid from CTS following, status post CABG x 3, Left Internal Mammary Artery to LAD, Saphenous Vein Graft to OM2 Obtuse Marginal Branch, SVG to Posterior descending Coronary artery. Aspirin, Statin and Beta blockers, Diuretics Probable will have Chest tubes removed later today. 4. COPD to continue Bronchodilator, Mucolytic and incentive spirometry. 5. History of Prior Pulmonary Emboli anticoagulation as per Surgical team. 6. Medical Non compliance 7. Acute blood loss anemia surgical team following. may need blood transfusion. DVT prophylaxis as per Surgical Team. Follow laboratory on daily basis Discharge Planning Once cleared by Specialists. Tim Grubbs MD Apr 20, 2017 08:38
[2017-04-20] MEDS: DOCUSATE SODIUM 100 MG CAP PO SCH ×2 (09:00→21:00)
[2017-04-20] MEDS: RESP: ALBUTEROL 2.5 MG/IPRATROPIUM 0.5 MG NEB (SCH) NEB ×3 (09:00→19:09)
[2017-04-20] MEDS: POLYETHYLENE GLYCOL 17 GM PKG PO SCH (09:00)
[2017-04-20] MEDS: MAGNESIUM HYDROXIDE SUSP 30 ML CUP PO SCH (09:00)
[2017-04-20] MEDS: SODIUM CHLORIDE 0.9% FLUSH 10 ML FLUSH IV FLUSH SCH ×2 (09:07→21:00)
[2017-04-20] MEDS: PREGABALIN 75 MG CAP PO SCH ×2 (09:08→21:15)
[2017-04-20] MEDS: METOPROLOL TARTRATE 25 MG TAB PO SCH ×2 (09:08→21:14)
[2017-04-20] MEDS: metFORMIN HCL 850 MG TAB PO SCH ×2 (09:08→17:14)
[2017-04-20] MEDS: ASPIRIN 81 MG CHEW TAB PO SCH (09:09)
[2017-04-20] MEDS: MULTIVITAMINS/MINERALS THERAPEUTIC TAB PO SCH (09:09)
[2017-04-20] MEDS: VENLAFAXINE HCL 25 MG TAB PO SCH ×2 (09:10→21:15)
--- NOTE | 2017-04-20 09:48 | PD.CAR.PN ---
CVT Progress Note Subjective/Hospital Course: 56/ male [facility] patient hx of prior CVA and prior PE ( September ) stopped taking his anticoagulation a few weeks ago. Presented to ED with SOB, worsening on exertion , room air sat 60%, he was placed on NRB mask diuresed, then later refused Bipap ventilation , he uses 02 2 liters at home. Developed chest pain on admission Trop 2.58, BNP 662. 2decho showed EF 35-40% moderate MR, moderate TR, moderate pulm HTN 50-60mmhg admitted with hypoxic resp failure, NSTEMI, COPD excacerbation , pulm edema , MIRNA, pt underwent cardiac cath by Dr Burris : multi vessel disease PMH: CVA , COPD, Hx . Bilateral PE - noncompliance. The patient has not taking his Xarelto, Hypertension, Hyperlipidemia, Diabetes with neuropathy, GERD, Pneumonia, Frequent falls, Encephalopathy orthostatic hypotension PFT's FEV1 1.38 43% predicted 04/16 pt remains on 4 liter nasal cannula at night, 2 liters during the day, still has some rales right lower lobe will consult Pulmonology for clearance for surgery and , CT chest did show bilateral pleural effusion R>L plan at this time is for surgery scheduled 04/18 plan is surgery on 04/17 pt on nasal cannula 3 liters appreciate pulmonary input pt was actually only on home 02 for a couple weeks following his last admission he was off 02 weeks before this readmission PFT with some restrictive disease for OR in am 04/18 surgery: CABG x 3, KERR to LAD - fair, SVG to OM2 - fair, SVG to PDA - good , L EVH 04/19 on nasal cannula , up in chair very painful, toradol added / sternal precautions reinstructed weaned off insulin gtt, on insulin sliding scale / restart metformin in am pulm toileting, OOb ambulate transfer to stepdown 04/20 Doing well D/C CT Ambulate Objective: Vital Signs Date Time Temp Pulse Resp B/P Pulse Ox O2 Delivery O2 Flow Rate FiO2 04/20/17 09:01 100 Nasal Cannula 4.50 04/20/17 08:00 100 04/20/17 08:00 97.9 100 18 126/79 96 04/20/17 08:00 96 Nasal Cannula 4.00 04/20/17 07:00 96 04/20/17 06:00 100 04/20/17 05:00 98 04/20/17 04:35 98.6 98 20 140/74 99 04/20/17 04:33 100 Nasal Cannula 4.00 04/20/17 04:00 102 04/20/17 03:00 103 04/20/17 02:00 100 04/20/17 01:00 96 04/20/17 00:28 100 Nasal Cannula 4.00 04/20/17 00:00 102 04/19/17 23:22 98.5 101 18 140/78 99 04/19/17 23:00 103 04/19/17 22:00 102 04/19/17 21:00 100 04/19/17 20:33 100 Nasal Cannula 4.00 04/19/17 20:28 94 Nasal Cannula 4.50 04/19/17 20:00 90 04/19/17 20:00 98.2 93 20 107/59 100 04/19/17 19:00 93 04/19/17 18:00 100 04/19/17 17:46 20 04/19/17 17:00 88 04/19/17 16:05 97.6 96 16 119/66 98 04/19/17 16:00 91 04/19/17 16:00 Nasal Cannula 4.00 04/19/17 15:00 92 04/19/17 14:55 16 04/19/17 14:00 96 04/19/17 13:00 94 04/19/17 12:34 16 04/19/17 12:18 97.6 104 18 142/72 99 04/19/17 12:00 98 04/19/17 11:26 16 04/19/17 11:00 98 04/19/17 11:00 98.7 100 18 113/66 96 Arterial Line 04/19/17 11:00 96 Nasal Cannula 5.00 04/19/17 10:09 95 Nasal Cannula 5.00 Labs: Laboratory Tests Test 04/20/17 05:30 White Blood Count 6.6 TH/MM3 (4.0-11.0) Red Blood Count 2.54 MIL/MM3 (4.50-5.90) Hemoglobin 7.9 GM/DL (13.0-17.0) Hematocrit 23.4 % (39.0-51.0) Mean Corpuscular Volume 92.1 FL (80.0-100.0) Mean Corpuscular Hemoglobin 31.1 PG (27.0-34.0) Mean Corpuscular Hemoglobin 33.7 % Concent (32.0-36.0) Red Cell Distribution Width 14.0 % (11.6-17.2) Platelet Count 141 TH/MM3 (150-450) Mean Platelet Volume 9.2 FL (7.0-11.0) Neutrophils (%) (Auto) 65.4 % (16.0-70.0) Lymphocytes (%) (Auto) 12.7 % (9.0-44.0) Monocytes (%) (Auto) 19.3 % (0.0-8.0) Eosinophils (%) (Auto) 2.2 % (0.0-4.0) Basophils (%) (Auto) 0.4 % (0.0-2.0) Neutrophils # (Auto) 4.3 TH/MM3 (1.8-7.7) Lymphocytes # (Auto) 0.8 TH/MM3 (1.0-4.8) Monocytes # (Auto) 1.3 TH/MM3 (0-0.9) Eosinophils # (Auto) 0.1 TH/MM3 (0-0.4) Basophils # (Auto) 0.0 TH/MM3 (0-0.2) CBC Comment DIFF FINAL Differential Comment Sodium Level 141 MEQ/L (136-145) Potassium Level 4.5 MEQ/L (3.5-5.1) Chloride Level 105 MEQ/L (98-107) Carbon Dioxide Level 28.4 MEQ/L (21.0-32.0) Anion Gap 8 MEQ/L (5-15) Blood Urea Nitrogen 19 MG/DL (7-18) Creatinine 0.81 MG/DL (0.60-1.30) Estimat Glomerular Filtration 98 ML/MIN (>89) Rate Random Glucose 93 MG/DL (74-106) Calcium Level 8.6 MG/DL (8.5-10.1) Magnesium Level 1.9 MG/DL (1.5-2.5) Result Diagram: 04/20/1752904/20/17529 (1) NSTEMI (non-ST elevated myocardial infarction) (2) CAD (coronary artery disease) (3) S/P CABG x 3 Plan: ASA, statin , BB , gentle diuresis nebs, ezpap acapella ambulate, CM to eval for C at discharge (4) Intractable pain Plan: on prn pain meds, scheduled Lyrica (5) DM (diabetes mellitus) Plan: hgb a1c 7.9 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
[2017-04-20] MEDS ORDERED: KETOROLAC TROMETHAMINE 30 MG/ML VIAL IV PUSH ONE (10:15)
[2017-04-20] MEDS: BUDESONIDE-FORMOTEROL 160/4.5 MCG INHALER INH SCH ×2 (12:43→21:19)
[2017-04-20] MEDS: SENNOSIDES 8.6 MG TAB PO SCH (21:00)
[2017-04-20] MEDS: ATORVASTATIN 20 MG TAB PO SCH (21:15)
[2017-04-20] MEDS: KETOROLAC TROMETHAMINE 30 MG/ML (IVP) VIAL IV PUSH PRN (21:24)
[2017-04-21] VITALS (29 sets, daily range): BP systolic 117–169; BP diastolic 65–90; PULSE 74–101; RESP 18–20; TEMP 97.6–98.9; O2SAT 92–100
[2017-04-21] MEDS: HYDROmorphone HCL PF 1 MG/ML VIAL IV PUSH PRN ×4 (03:25→20:37)
[2017-04-21] MEDS: PANTOPRAZOLE SOD 40 MG DELAYED RELEASE TAB PO SCH (05:31)
--- NOTE | 2017-04-21 05:57 | HHI.PR ---
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 He endorses dyspnea on exertion. He originally denied chest pain on admission, but over the last hour or two has also developed substernal chest pain which is non-radiating. he states he has never had a heart attack before. Remainder of the ROS is negative unless otherwise stated. He had a prior PE back in September, but he states he stopped taking his anticoagulation a few weeks ago. In the ER he was found to have a room air saturation of 60%. He was placed on a NRB. He was given 80mg Lasix iv x 1. His BNP is 662, trop 2.58. He refused BiPAP and then his NRB. on my evaluation he is on 6L o2 by NC with spo2 92%. He has additionally refused Cuellar catheter placement. 04/14: Anxious overnight. Remained on pNRB overnight, no down to 50% VM. Echo- Estimated ejection fraction in the range of 35-40%. limited LV wall motion assessment moderate MR. Moderate TR. Moderate pulmonary hypertension present ( range 50-60 mmHg). Cardiac cath: 04/13 Severe multivessel disease. CTS Dr. Reid planning on CABG mid week. CXR unchanged on my review. Intermittent chest pain, but improved Hospitalist Notes: 04/16: Patient transfer to be followed by medical team, discussed with nurse Miss Avina in Intensive Care Unit, he is transferred to Cardiac floor, no nausea, vomit or diarrhea, asking for pain medicine, as per patient continue with thoracic pain and low back pain from trauma related to syncopal episodes. but stable awaiting for procedure to be performed this next . 04/18/1704/17: Stable in his bedroom, discussed with nurse Miss Shields, no nausea, vomit or diarrhea. Walking in his bedroom, totally asymptomatic. 818: Patient Out of Intensive Care Unit, now Status post CABG x 3, Left Internal Mammary Artery to LAD, Saphenous Vein Graft to OM2 Obtuse Marginal Branch, SVG to Posterior descending Coronary artery. Aspirin, Statin and Beta blockers , Diuretics, discussed with patient and nurse Miss Mckoy, he will have Chest tubes removed later today, continue Bronchodilator, Mucolytic and incentive spirometry, early ambulation. 04/21: Seen walking in the aisle with Physical Therapy, Chest tubes removed by Cardiothoracic surgery, no complaint, improving condition, has mild inspiratory crackles on both bases, discussed with nurse Miss Mckoy. Objective Vital Signs Date Time Temp Pulse Resp B/P Pulse Ox O2 Delivery O2 Flow Rate FiO2 04/21/17 05:17 96 04/21/17 04:30 93 04/21/17 04:23 98.5 94 154/89 100 04/21/17 04:23 Nasal Cannula 3.00 75 04/21/17 03:00 89 04/21/17 02:00 80 04/21/17 01:00 80 04/21/17 00:20 Nasal Cannula 3.00 04/21/17 00:20 98.1 87 117/71 98 04/21/17 00:00 84 04/20/17 23:00 86 04/20/17 22:00 90 04/20/17 21:00 Nasal Cannula 3.00 04/20/17 21:00 98.2 99 120/73 96 04/20/17 21:00 94 04/20/17 20:00 98 04/20/17 19:09 98 Nasal Cannula 3.50 04/20/17 19:00 100 04/20/17 18:00 84 04/20/17 17:00 88 04/20/17 16:00 94 Nasal Cannula 3.00 04/20/17 16:00 97.1 93 20 126/72 99 04/20/17 16:00 93 04/20/17 15:00 90 04/20/17 14:00 89 04/20/17 13:00 98 04/20/17 12:00 98.1 99 18 119/73 99 04/20/17 12:00 94 Nasal Cannula 2.00 04/20/17 12:00 100 04/20/17 11:30 98.1 99 18 119/73 98 04/20/17 11:00 96 04/20/17 10:00 99 04/20/17 09:01 100 Nasal Cannula 4.50 04/20/17 09:00 98 04/20/17 08:00 100 04/20/17 08:00 97.9 100 18 126/79 96 04/20/17 08:00 96 Nasal Cannula 4.00 04/20/17 07:00 96 04/20/17 06:00 100 I/O 04/20/17 04/20/17 04/20/17 04/21/17 04/21/17 04/21/17 07:00 15:00 23:00 07:00 15:00 23:00 Intake Total 820 ml 780 ml 240 ml Output Total 1040 ml 720 ml 575 ml Balance -220 ml 60 ml -335 ml Intake Oral 720 ml 780 ml 240 ml IV Total 100 ml Output Urine Total 1000 ml 720 ml 575 ml Chest Tube Drainage Total 40 ml 0 ml Result Diagram: 04/20/17 0530 04/20/17 0530 Imaging Last Impressions Chest X-Ray 04/19/17 0500 Signed Impressions: Service Date/Time: Wednesday, April 19, 2017 04:01 - CONCLUSION: 1. Improving aeration in the right base with developing airspace consolidation/effusion in the left base. 2. Interval removal of the endotracheal and nasogastric tubes. 3. Stable position of left-sided thoracostomy tube without pneumothorax. Kush Vigil MD Lower Extremity Ultrasound 04/13/17 0000 Signed Impressions: Service Date/Time: Thursday, April 13, 2017 20:08 - CONCLUSION: Venous mapping study as described. Samir Nelson MD Carotid Artery Ultrasound 04/13/17 0000 Signed Impressions: Service Date/Time: Thursday, April 13, 2017 19:38 - CONCLUSION: Minimal plaque identified at the carotid bulbs bilaterally. No evidence of hemodynamically significant carotid stenosis. Canelo Rea MD CT Angiography 04/13/17 0000 Signed Impressions: Service Date/Time: Thursday, April 13, 2017 03:11 - CONCLUSION: 1. No evidence for pulmonary embolism. 2. Patchy groundglass densities with bibasilar consolidation and bilateral pleural effusions, likely CHF. 3. Coronary artery calcifications. Holden Lin MD Procedures Cardiac Catheterization CABG x 3 Other Results Laboratory Tests Test 04/17/17 04/18/17 04/18/17 04/20/17 04:50 04:50 12:40 05:30 Blood Type B POSITIVE Antibody Screen NEGATIVE Crossmatch Leukocyte-Reduced Red Blood Cells Blood Bank Comment Activated Partial 35.7 SEC Thromboplast Time Blood Gas Puncture Site ART LINE Blood Gas Patient Temperature 98.6 Blood Gas HCO3 25 mmol/L Blood Gas Base Excess -1.0 mmol/L Blood Gas Oxygen Saturation 92 % Arterial Blood pH 7.27 Arterial Blood Partial 57 mmHg Pressure CO2 Arterial Blood Partial 82 mmHg Pressure O2 Arterial Blood Oxygen Content 13.6 Vol % Arterial Blood 1.5 % Carboxyhemoglobin Arterial Blood Methemoglobin 1.3 % Blood Gas Hemoglobin 10.5 G/DL Oxygen Delivery Device VENTILATOR Blood Gas Ventilator Setting IMV,12,500,PEP5,PS10 Blood Gas Inspired Oxygen 100 % White Blood Count 6.6 TH/MM3 Red Blood Count 2.54 MIL/MM3 Hemoglobin 7.9 GM/DL Hematocrit 23.4 % Mean Corpuscular Volume 92.1 FL Mean Corpuscular Hemoglobin 31.1 PG Mean Corpuscular Hemoglobin 33.7 % Concent Red Cell Distribution Width 14.0 % Platelet Count 141 TH/MM3 Mean Platelet Volume 9.2 FL Neutrophils (%) (Auto) 65.4 % Lymphocytes (%) (Auto) 12.7 % Monocytes (%) (Auto) 19.3 % Eosinophils (%) (Auto) 2.2 % Basophils (%) (Auto) 0.4 % Neutrophils # (Auto) 4.3 TH/MM3 Lymphocytes # (Auto) 0.8 TH/MM3 Monocytes # (Auto) 1.3 TH/MM3 Eosinophils # (Auto) 0.1 TH/MM3 Basophils # (Auto) 0.0 TH/MM3 CBC Comment DIFF FINAL Differential Comment Sodium Level 141 MEQ/L Potassium Level 4.5 MEQ/L Chloride Level 105 MEQ/L Carbon Dioxide Level 28.4 MEQ/L Anion Gap 8 MEQ/L Blood Urea Nitrogen 19 MG/DL Creatinine 0.81 MG/DL Estimat Glomerular Filtration 98 ML/MIN Rate Random Glucose 93 MG/DL Calcium Level 8.6 MG/DL Magnesium Level 1.9 MG/DL Objective Remarks GENERAL: Middle-aged male, lying in bed, in mild distress due to dyspnea and anxiety HEENT: Normocephalic. Atraumatic. Pupils equal, round, reactive, conjugate. Mucous membranes are moist NECK: Trachea is midline. There is no JVD. CHEST: Air entry equal bilaterally with scattered crackles. anterior chest dressed, CARDIOVASCULAR: S1-S2 normal. ABDOMEN: Soft, nontender, nondistended. No guarding. MUSCULOSKELETAL: Pulses 2+. No peripheral edema. NEUROLOGICAL: Alert awake oriented no focal deficits Medications and IVs Current Medications Medications (Trade) Dose Ordered Sig/Dario Route Start Time Stop Time Status Last Admin (Dilaudid Pf Inj) 0.5 mg Q4H PRN IV PUSH 04/13/17 04:15 04/21/17 03:25 (Lipitor) 20 mg HS PO 04/13/17 21:00 04/20/17 21:15 (NS Flush) 2 ml BID IV FLUSH 04/13/17 21:00 04/20/17 21:00 (NS Flush) 2 ml UNSCH PRN IV FLUSH 04/13/17 16:30 04/19/17 21:27 (Roxicodone) 10 mg Q6H PRN PO 04/13/17 18:15 04/21/17 05:31 (Ativan) 0.5 mg Q6H PRN PO 04/14/17 08:45 04/19/17 01:11 (Pill Splitter) 1 ea UNSCH PRN OTHER 04/15/17 08:00 (Symbicort 160-4.5 Inh) 1 puff Q12HR INH 04/15/17 09:00 04/20/17 21:19 (Lyrica) 75 mg BID PO 04/15/17 13:00 04/20/17 21:15 (Effexor) 50 mg Q12HR PO 04/15/17 13:00 04/20/17 21:15 (Aspirin Chew) 81 mg DAILY PO 04/19/17 09:00 04/20/17 09:09 (Protonix) 40 mg DAILY@06 PO 04/19/17 06:00 04/21/17 05:31 (Tylenol) 650 mg Q4H PRN PO 04/18/17 12:00 (fentaNYL INJ) 25 mcg Q1H PRN IV 04/18/17 12:00 04/19/17 09:45 (Zofran Inj) 4 mg Q6H PRN IV PUSH 04/18/17 12:00 (Colace) 100 mg BID PO 04/19/17 21:00 (Theragran M Tab) 1 tab DAILY PO 04/20/17 09:00 04/20/17 09:09 (Milk Of Magnesia Liq) 30 ml DAILY PO 04/20/17 09:00 (Miralax) 17 gm DAILY PO 04/20/17 09:00 (Senokot) 8.6 mg HS PO 04/19/17 21:00 (Fleets Enema (Adult)) 133 ml UNSCH PRN RECTAL 04/19/17 09:30 (Lopressor) 12.5 mg BID PO 04/19/17 09:30 04/20/17 21:14 (D50w (Vial) Inj) 50 ml UNSCH PRN IV 04/19/17 09:30 (Glucagon Inj) 1 mg UNSCH PRN OTHER 04/19/17 09:30 (Glucophage) 850 mg BIDPC PO 04/20/17 09:00 04/20/17 17:14 (Toradol Inj) 15 mg Q6H PRN IV PUSH 04/20/17 11:00 04/23/17 10:59 04/20/17 21:24 A/P Assessment and Plan 1. Acute Hypoxic and Hypercarbic Respiratory Failure, continue Oxygen to keep Oxygen saturation over 90%, BiPAP as tolerated Bronchodilator, Mucolytic and Incentive Spirometry 2. CHF exacerbation/NSTEMI and Hypoxemia, in a patient with status post Cardiac Catheterization showed Severe Multivessel Coronary artery disease, Cardiothoracic Surgery planning CABG mid week, continue Heparin, Aspirin, Beta Blockers and aggressive forced diuresis Echocardiogram EF 35-40%, Moderate MR, was on Lasix. 3. NSTEMI/Moderate MR Nitroglycerine, Beta blockers. anticoagulation with Heparin. Aspirin, Cardiology Dr. Burris- Cath shows severe multivessel CAD. Dr. Reid from CTS following, status post CABG x 3, Left Internal Mammary Artery to LAD, Saphenous Vein Graft to OM2 Obtuse Marginal Branch, SVG to Posterior descending Coronary artery. Aspirin, Statin and Beta blockers, Diuretics Chest tubes removed. 4. COPD to continue Bronchodilator, Mucolytic and incentive spirometry. 5. History of Prior Pulmonary Emboli anticoagulation as per Surgical team. 6. Medical Non compliance 7. Acute blood loss anemia surgical team following. may need blood transfusion. DVT prophylaxis as per Surgical Team. Discharge Planning Once cleared by Specialists. Tim Grubbs MD Apr 21, 2017 5:57 am
[2017-04-21] MEDS: INSULIN ASPART SUPPLEMENTAL SCALE SQ SCH ×4 (06:09→20:52)
[2017-04-21] MEDS: RESP: ALBUTEROL 2.5 MG/IPRATROPIUM 0.5 MG NEB (SCH) NEB (08:00)
[2017-04-21] MEDS: MAGNESIUM HYDROXIDE SUSP 30 ML CUP PO SCH (09:00)
[2017-04-21] MEDS: ASPIRIN 81 MG CHEW TAB PO SCH (09:00)
[2017-04-21] MEDS: PREGABALIN 75 MG CAP PO SCH ×2 (09:00→20:38)
[2017-04-21] MEDS: MULTIVITAMINS/MINERALS THERAPEUTIC TAB PO SCH (09:00)
[2017-04-21] MEDS: metFORMIN HCL 850 MG TAB PO SCH ×2 (09:00→16:46)
[2017-04-21] MEDS: METOPROLOL TARTRATE 25 MG TAB PO SCH ×2 (09:00→20:37)
[2017-04-21] MEDS: SODIUM CHLORIDE 0.9% FLUSH 10 ML FLUSH IV FLUSH SCH ×2 (09:00→20:38)
[2017-04-21] MEDS: BUDESONIDE-FORMOTEROL 160/4.5 MCG INHALER INH SCH ×2 (09:00→20:38)
[2017-04-21] MEDS: POLYETHYLENE GLYCOL 17 GM PKG PO SCH (09:00)
[2017-04-21] MEDS: DOCUSATE SODIUM 100 MG CAP PO SCH ×2 (09:00→20:39)
[2017-04-21] MEDS: VENLAFAXINE HCL 25 MG TAB PO SCH ×2 (09:00→20:38)
[2017-04-21] MEDS: KETOROLAC TROMETHAMINE 30 MG/ML (IVP) VIAL IV PUSH PRN (11:00)
[2017-04-21] MEDS: ATORVASTATIN 20 MG TAB PO SCH (20:38)
[2017-04-21] MEDS: SENNOSIDES 8.6 MG TAB PO SCH (20:38)
[2017-04-22] VITALS (21 sets, daily range): BP systolic 112–154; BP diastolic 64–84; PULSE 84–96; RESP 18–20; TEMP 97.9–98.9; O2SAT 94–98
[2017-04-22] MEDS: HYDROmorphone HCL PF 1 MG/ML VIAL IV PUSH PRN ×2 (03:20→08:52)
[2017-04-22] MEDS: INSULIN ASPART SUPPLEMENTAL SCALE SQ SCH ×2 (05:34→12:01)
[2017-04-22] MEDS: PANTOPRAZOLE SOD 40 MG DELAYED RELEASE TAB PO SCH (05:36)
[2017-04-22 06:48] LABS: MEAN CELL VOLUME 91.5 FL (80.0-100.0); MEAN CORPUSCULAR HEMOGLOBIN 31.8 PG (27.0-34.0); MEAN CORPUSCULAR HGB CONC 34.8 % (32.0-36.0); PLATELET COUNT 189 TH/MM3 (150-450); RED BLOOD COUNT 2.51 MIL/MM3 (4.50-5.90); RED CELL DISTRIBUTION WIDTH 13.4 % (11.6-17.2); REVIEW FLAG FINAL; WHITE BLOOD COUNT 7.1 TH/MM3 (4.0-11.0)
[2017-04-22] MEDS: metFORMIN HCL 850 MG TAB PO SCH (08:44)
[2017-04-22] MEDS: ASPIRIN 81 MG CHEW TAB PO SCH (08:44)
[2017-04-22] MEDS: MULTIVITAMINS/MINERALS THERAPEUTIC TAB PO SCH (08:44)
[2017-04-22] MEDS: DOCUSATE SODIUM 100 MG CAP PO SCH (08:44)
[2017-04-22] MEDS: PREGABALIN 75 MG CAP PO SCH (08:44)
[2017-04-22] MEDS: POLYETHYLENE GLYCOL 17 GM PKG PO SCH (08:45)
[2017-04-22] MEDS: MAGNESIUM HYDROXIDE SUSP 30 ML CUP PO SCH (08:45)
[2017-04-22] MEDS: METOPROLOL TARTRATE 25 MG TAB PO SCH (08:45)
[2017-04-22] MEDS: SODIUM CHLORIDE 0.9% FLUSH 10 ML FLUSH IV FLUSH SCH (08:46)
[2017-04-22] MEDS: BUDESONIDE-FORMOTEROL 160/4.5 MCG INHALER INH SCH (08:47)
[2017-04-22] MEDS: VENLAFAXINE HCL 25 MG TAB PO SCH (08:51)
--- NOTE | 2017-04-22 10:24 | RADRPT ---
EXAM DATE/TIME: 04/22/2017 10:12 [facility] COMPARISON: CHEST SINGLE AP, April 19, 2017, 4:01. INDICATIONS : Shortness of breath. MEDICAL HISTORY : Stroke. Hypercholesterolemia. Hypertension. COPD, pneumonia, diabetes, SURGICAL HISTORY : CABG. ORIF left clavicle. ENCOUNTER: Subsequent ACUITY: 1 week PAIN SCORE: 8/10 LOCATION: Bilateral chest FINDINGS: PA and lateral views of the chest demonstrate bibasilar densities and small left pleural effusion. Ca rdiomegaly with previous CABG. The cardiomediastinal contours are unremarkable. Osseous structures are intact. CONCLUSION: Cardiomegaly and minimal bibasilar densities and small left pleural effusion. Status post CABG. Holden Lin MD on April 22, 2017 at 10:21 Board Certified Radiologist. This report was verified electronically.
[2017-04-22 13:02] LABS: BICARBONATE 30.3 MEQ/L (21.0-32.0); MAGNESIUM 1.5 MG/DL (1.5-2.5); POTASSIUM 4.4 MEQ/L (3.5-5.1)
--- NOTE | 2017-04-22 13:25 | HHI.PR ---
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 He endorses dyspnea on exertion. He originally denied chest pain on admission, but over the last hour or two has also developed substernal chest pain which is non-radiating. he states he has never had a heart attack before. Remainder of the ROS is negative unless otherwise stated. He had a prior PE back in September, but he states he stopped taking his anticoagulation a few weeks ago. In the ER he was found to have a room air saturation of 60%. He was placed on a NRB. He was given 80mg Lasix iv x 1. His BNP is 662, trop 2.58. He refused BiPAP and then his NRB. on my evaluation he is on 6L o2 by NC with spo2 92%. He has additionally refused Cuellar catheter placement. 04/14: Anxious overnight. Remained on pNRB overnight, no down to 50% VM. Echo- Estimated ejection fraction in the range of 35-40%. limited LV wall motion assessment moderate MR. Moderate TR. Moderate pulmonary hypertension present ( range 50-60 mmHg). Cardiac cath: 04/13 Severe multivessel disease. CTS Dr. Reid planning on CABG mid week. CXR unchanged on my review. Intermittent chest pain, but improved Hospitalist Notes: 04/16: Patient transfer to be followed by medical team, discussed with nurse Miss Avina in Intensive Care Unit, he is transferred to Cardiac floor, no nausea, vomit or diarrhea, asking for pain medicine, as per patient continue with thoracic pain and low back pain from trauma related to syncopal episodes. but stable awaiting for procedure to be performed this next . 04/18/1704/17: Stable in his bedroom, discussed with nurse Miss Shields, no nausea, vomit or diarrhea. Walking in his bedroom, totally asymptomatic. 818: Patient Out of Intensive Care Unit, now Status post CABG x 3, Left Internal Mammary Artery to LAD, Saphenous Vein Graft to OM2 Obtuse Marginal Branch, SVG to Posterior descending Coronary artery. Aspirin, Statin and Beta blockers , Diuretics, discussed with patient and nurse Miss Mckoy, he will have Chest tubes removed later today, continue Bronchodilator, Mucolytic and incentive spirometry, early ambulation. 04/21: Seen walking in the aisle with Physical Therapy, Chest tubes removed by Cardiothoracic surgery, no complaint, improving condition, has mild inspiratory crackles on both bases, discussed with nurse Miss Mckoy. 04/22: Stable in his bedroom, discussed with nurse Miss Mckoy already recommended by Cardiothoracic contract specialist for discharge. discussed with ] patient and no complaint. Objective Vital Signs Date Time Temp Pulse Resp B/P (MAP) Pulse Ox O2 Delivery O2 Flow Rate FiO2 04/22/17 13:00 90 04/22/17 12:00 94 04/22/17 12:00 98.1 96 20 112/64 (80) 94 04/22/17 12:00 94 Room Air 04/22/17 11:00 86 04/22/17 11:00 94 Room Air 04/22/17 10:00 84 04/22/17 09:22 94 Nasal Cannula 2.00 04/22/17 09:00 88 04/22/17 08:00 94 Nasal Cannula 1.00 04/22/17 08:00 94 Nasal Cannula 1.00 04/22/17 08:00 90 04/22/17 07:30 98.9 90 20 129/80 (96) 94 04/22/17 07:00 90 04/22/17 06:17 85 04/22/17 05:10 90 04/22/17 04:30 Nasal Cannula 2.00 04/22/17 04:30 97.9 93 145/84 (104) 97 04/22/17 04:00 91 04/22/17 03:00 91 04/22/17 02:00 90 04/22/17 01:00 88 04/22/17 00:03 Nasal Cannula 2.00 04/22/17 00:01 98.3 92 154/80 (104) 98 04/22/17 00:00 88 04/21/17 23:35 95 Nasal Cannula 2.00 04/21/17 23:00 88 04/21/17 22:00 88 04/21/17 21:00 88 04/21/17 21:00 90 04/21/17 20:00 97.8 93 169/90 (116) 95 04/21/17 20:00 100 04/21/17 20:00 Nasal Cannula 2.00 04/21/17 19:00 89 04/21/17 18:00 74 04/21/17 17:00 86 04/21/17 16:00 88 04/21/17 16:00 97 Room Air 04/21/17 15:00 98.9 88 20 118/65 (82) 97 04/21/17 15:00 86 04/21/17 14:00 84 I/O 04/21/17 04/21/17 04/21/17 04/22/17 04/22/17 04/22/17 06:59 14:59 22:59 06:59 14:59 22:59 Intake Total 240 ml 720 ml 240 ml Output Total 575 ml 700 ml 780 ml Balance -335 ml 20 ml -540 ml Intake Oral 240 ml 720 ml 240 ml Output Urine Total 575 ml 700 ml 780 ml # Bowel Movements 1 Result Diagram: 04/22/17 0411 04/22/17 1145 Imaging Last Impressions Chest X-Ray 04/19/17 0500 Signed Impressions: Service Date/Time: Wednesday, April 19, 2017 04:01 - CONCLUSION: 1. Improving aeration in the right base with developing airspace consolidation/effusion in the left base. 2. Interval removal of the endotracheal and nasogastric tubes. 3. Stable position of left-sided thoracostomy tube without pneumothorax. Kush Vigil MD Lower Extremity Ultrasound 04/13/17 0000 Signed Impressions: Service Date/Time: Thursday, April 13, 2017 20:08 - CONCLUSION: Venous mapping study as described. Samir Nelson MD Carotid Artery Ultrasound 04/13/17 0000 Signed Impressions: Service Date/Time: Thursday, April 13, 2017 19:38 - CONCLUSION: Minimal plaque identified at the carotid bulbs bilaterally. No evidence of hemodynamically significant carotid stenosis. Canelo Rea MD CT Angiography 04/13/17 0000 Signed Impressions: Service Date/Time: Thursday, April 13, 2017 03:11 - CONCLUSION: 1. No evidence for pulmonary embolism. 2. Patchy groundglass densities with bibasilar consolidation and bilateral pleural effusions, likely CHF. 3. Coronary artery calcifications. Holden Lin MD Procedures Cardiac Catheterization CABG x 3 Other Results Laboratory Tests Test 04/13/17 01:08 04/13/17 01:30 04/13/17 04:35 04/13/17 13:50 Venous Blood pH 7.24 Venous Blood Partial Pressure CO2 63 mmHg Venous Blood Partial Pressure O2 37 mmHg Venous Blood HCO3 26 mmol/L Venous Blood Oxygen Saturation 59 % Venous Blood Oxygen Content 10.2 Vol % Venous Blood Base Excess -0.3 mmol/L B-Type Natriuretic Peptide 662 PG/ML Total Creatine Kinase 155 U/L Creatine Kinase MB 10.1 NG/ML Nasal Screen MRSA (PCR) MRSA NOT DETECTED Test 04/13/17 18:05 04/13/17 23:50 04/14/17 05:40 04/16/17 05:12 Urine Color YELLOW Urine Turbidity CLEAR Urine pH 5.0 Urine Specific [place] 1.024 Urine Protein NEG mg/dL Urine Glucose (UA) NEG mg/dL Urine Ketones NEG mg/dL Urine Occult Blood NEG Urine Nitrite NEG Urine Bilirubin NEG Urine Urobilinogen LESS THAN 2.0 MG/DL Urine Leukocyte Esterase NEG Urine RBC LESS THAN 1 /hpf Urine WBC 1 /hpf Microscopic Urinalysis Comment CULT NOT INDICATED Hemoglobin A1c 7.9 % Troponin I 4.08 NG/ML Blood Gas Liter Flow 13 L/M Triglycerides Level 138 MG/DL Cholesterol Level 150 MG/DL LDL Cholesterol 86 MG/DL HDL Cholesterol 36.5 MG/DL Cholesterol/HDL Ratio 4.10 RATIO Blood Urea Nitrogen 27 MG/DL Creatinine 0.90 MG/DL Random Glucose 132 MG/DL Total Protein 7.0 GM/DL Albumin 3.3 GM/DL Calcium Level 8.3 MG/DL Magnesium Level 1.6 MG/DL Alkaline Phosphatase 90 U/L Aspartate Amino Transf (AST/SGOT) 12 U/L Alanine Aminotransferase (ALT/SGPT) 14 U/L Total Bilirubin 0.6 MG/DL Sodium Level 136 MEQ/L Potassium Level 4.2 MEQ/L Chloride Level 97 MEQ/L Carbon Dioxide Level 31.7 MEQ/L Test 04/18/17 04:50 04/18/17 12:40 04/20/17 05:30 04/22/17 04:11 Activated Partial Thromboplast Time 35.7 SEC Blood Gas Puncture Site ART LINE Blood Gas Patient Temperature 98.6 Blood Gas HCO3 25 mmol/L Blood Gas Base Excess -1.0 mmol/L Blood Gas Oxygen Saturation 92 % Arterial Blood pH 7.27 Arterial Blood Partial Pressure CO2 57 mmHg Arterial Blood Partial Pressure O2 82 mmHg Arterial Blood Oxygen Content 13.6 Vol % Arterial Blood Carboxyhemoglobin 1.5 % Arterial Blood Methemoglobin 1.3 % Blood Gas Hemoglobin 10.5 G/DL Oxygen Delivery Device VENTILATOR Blood Gas Ventilator Setting IMV,12,500,PEP5,PS10 Blood Gas Inspired Oxygen 100 % Neutrophils (%) (Auto) 65.4 % Lymphocytes (%) (Auto) 12.7 % Monocytes (%) (Auto) 19.3 % Eosinophils (%) (Auto) 2.2 % Basophils (%) (Auto) 0.4 % Neutrophils # (Auto) 4.3 TH/MM3 Lymphocytes # (Auto) 0.8 TH/MM3 Monocytes # (Auto) 1.3 TH/MM3 Eosinophils # (Auto) 0.1 TH/MM3 Basophils # (Auto) 0.0 TH/MM3 CBC Comment DIFF FINAL Differential Comment White Blood Count 7.1 TH/MM3 Red Blood Count 2.51 MIL/MM3 Hemoglobin 8.0 GM/DL Hematocrit 23.0 % Mean Corpuscular Volume 91.5 FL Mean Corpuscular Hemoglobin 31.8 PG Mean Corpuscular Hemoglobin Concent 34.8 % Red Cell Distribution Width 13.4 % Platelet Count 189 TH/MM3 Mean Platelet Volume 9.8 FL Test 04/22/17 11:45 Blood Urea Nitrogen 20 MG/DL Creatinine 0.64 MG/DL Random Glucose 161 MG/DL Calcium Level 8.9 MG/DL Magnesium Level 1.5 MG/DL Sodium Level 139 MEQ/L Potassium Level 4.4 MEQ/L Chloride Level 101 MEQ/L Carbon Dioxide Level 30.3 MEQ/L Anion Gap 8 MEQ/L Estimat Glomerular Filtration Rate 128 ML/MIN Objective Remarks GENERAL: Middle-aged male, lying in bed, in mild distress due to dyspnea and anxiety HEENT: Normocephalic. Atraumatic. Pupils equal, round, reactive, conjugate. Mucous membranes are moist NECK: Trachea is midline. There is no JVD. CHEST: Air entry equal bilaterally with scattered crackles. anterior chest dressed, CARDIOVASCULAR: S1-S2 normal. ABDOMEN: Soft, nontender, nondistended. No guarding. MUSCULOSKELETAL: Pulses 2+. No peripheral edema. NEUROLOGICAL: Alert awake oriented no focal deficits Medications and IVs Current Medications Medications (Trade) Dose Ordered Sig/Dario Route Start Time Stop Time Status Last Admin (Lipitor) 20 mg HS PO 04/13/17 21:00 04/21/17 20:38 (NS Flush) 2 ml BID IV FLUSH 04/13/17 21:00 04/22/17 08:46 (NS Flush) 2 ml UNSCH PRN IV FLUSH 04/13/17 16:30 04/19/17 21:27 (Roxicodone) 10 mg Q6H PRN PO 04/13/17 18:15 04/22/17 11:59 (Ativan) 0.5 mg Q6H PRN PO 04/14/17 08:45 04/19/17 01:11 (Pill Splitter) 1 ea UNSCH PRN OTHER 04/15/17 08:00 (Symbicort 160-4.5 Inh) 1 puff Q12HR INH 04/15/17 09:00 04/22/17 08:47 (Lyrica) 75 mg BID PO 04/15/17 13:00 04/22/17 08:44 (Effexor) 50 mg Q12HR PO 04/15/17 13:00 04/22/17 08:51 (Aspirin Chew) 81 mg DAILY PO 04/19/17 09:00 04/22/17 08:44 (Protonix) 40 mg DAILY@06 PO 04/19/17 06:00 04/22/17 05:36 (Tylenol) 650 mg Q4H PRN PO 04/18/17 12:00 (Zofran Inj) 4 mg Q6H PRN IV PUSH 04/18/17 12:00 (Duoneb Neb) 1 ampule Q2HR NEB PRN NEB 04/18/17 12:00 (Colace) 100 mg BID PO 04/19/17 21:00 (Theragran M Tab) 1 tab DAILY PO 04/20/17 09:00 04/22/17 08:44 (Milk Of Magnesia Liq) 30 ml DAILY PO 04/20/17 09:00 (Miralax) 17 gm DAILY PO 04/20/17 09:00 (Senokot) 8.6 mg HS PO 04/19/17 21:00 (Fleets Enema (Adult)) 133 ml UNSCH PRN RECTAL 04/19/17 09:30 (Lopressor) 12.5 mg BID PO 04/19/17 09:30 04/22/17 08:45 (D50w (Vial) Inj) 50 ml UNSCH PRN IV 04/19/17 09:30 (Glucagon Inj) 1 mg UNSCH PRN OTHER 04/19/17 09:30 (Glucophage) 850 mg BIDPC PO 04/20/17 09:00 04/22/17 08:44 (NovoLOG SUPPLEMENTAL SCALE) 1 ACHS SLIDING SCALE SQ 04/20/17 11:00 04/22/17 12:01 A/P Assessment and Plan 1. Acute Hypoxic and Hypercarbic Respiratory Failure, continue Oxygen to keep Oxygen saturation over 90%, BiPAP as tolerated Bronchodilator, Mucolytic and Incentive Spirometry 2. CHF exacerbation/NSTEMI and Hypoxemia, in a patient with status post Cardiac Catheterization showed Severe Multivessel Coronary artery disease, Cardiothoracic Surgery planning CABG mid week, continue Heparin, Aspirin, Beta Blockers and aggressive forced diuresis Echocardiogram EF 35-40%, Moderate MR, was on Lasix. 3. NSTEMI/Moderate MR Nitroglycerine, Beta blockers. anticoagulation with Heparin. Aspirin, Cardiology Dr. Burris- Cath shows severe multivessel CAD. Dr. Reid from CTS following, status post CABG x 3, Left Internal Mammary Artery to LAD, Saphenous Vein Graft to OM2 Obtuse Marginal Branch, SVG to Posterior descending Coronary artery. Aspirin, Statin and Beta blockers, Diuretics Chest tubes removed. 4. COPD to continue Bronchodilator, Mucolytic and incentive spirometry. 5. History of Prior Pulmonary Emboli anticoagulation as per Surgical team. 6. Medical Non compliance 7. Acute blood loss anemia stable DVT prophylaxis as per Surgical Team. at this time okay to discharge from surgical standpoint. okay from Medicine. Discharge Planning discharge to snf. Tim Grubbs MD Apr 22, 2017 13:25
[2017-04-22] MEDS ORDERED: MAGNESIUM OXIDE 400 MG TAB PO ONE ×2 (14:30→16:15)
[2017-04-22] MEDS ORDERED: MAGNESIUM SULFATE 1 GM PREMIX 100 ML IV ONE (15:00)
[2017-04-22] MEDS ORDERED: THERM PO (15:24)
[2017-04-22] MEDS ORDERED: METO25TA3 PO (15:24)
[2017-04-22] MEDS ORDERED: OXYC-395 PO (15:24)
[2017-04-22] MEDS ORDERED: FERR325T8 PO (15:24)
[2017-04-22] MEDS ORDERED: DOCU1CAP39 PO (15:24)
[2017-04-22] MEDS ORDERED: SYMB160A INH (15:24)
--- NOTE | 2017-04-22 15:29 | HHI.PR ---
Subjective Remarks ALERT NO SOB Objective Vital Signs Date Time Temp Pulse Resp B/P (MAP) Pulse Ox O2 Delivery O2 Flow Rate FiO2 04/22/17 15:16 98.1 90 18 112/70 (84) 94 04/22/17 15:00 86 04/22/17 14:00 94 04/22/17 13:00 90 04/22/17 12:00 94 04/22/17 12:00 98.1 96 20 112/64 (80) 94 04/22/17 12:00 94 Room Air 04/22/17 11:00 86 04/22/17 11:00 94 Room Air 04/22/17 10:00 84 04/22/17 09:22 94 Nasal Cannula 2.00 04/22/17 09:00 88 04/22/17 08:00 94 Nasal Cannula 1.00 04/22/17 08:00 94 Nasal Cannula 1.00 04/22/17 08:00 90 04/22/17 07:30 98.9 90 20 129/80 (96) 94 04/22/17 07:00 90 04/22/17 06:17 85 04/22/17 05:10 90 04/22/17 04:30 Nasal Cannula 2.00 04/22/17 04:30 97.9 93 145/84 (104) 97 04/22/17 04:00 91 04/22/17 03:00 91 04/22/17 02:00 90 04/22/17 01:00 88 04/22/17 00:03 Nasal Cannula 2.00 04/22/17 00:01 98.3 92 154/80 (104) 98 04/22/17 00:00 88 04/21/17 23:35 95 Nasal Cannula 2.00 04/21/17 23:00 88 04/21/17 22:00 88 04/21/17 21:00 88 04/21/17 21:00 90 04/21/17 20:00 97.8 93 169/90 (116) 95 04/21/17 20:00 100 04/21/17 20:00 Nasal Cannula 2.00 04/21/17 19:00 89 04/21/17 18:00 74 04/21/17 17:00 86 04/21/17 16:00 88 04/21/17 16:00 97 Room Air I/O 04/21/17 04/21/17 04/21/17 04/22/17 04/22/17 04/22/17 07:00 15:00 23:00 07:00 15:00 23:00 Intake Total 240 ml 720 ml 240 ml Output Total 575 ml 700 ml 780 ml Balance -335 ml 20 ml -540 ml Intake Oral 240 ml 720 ml 240 ml Output Urine Total 575 ml 700 ml 780 ml # Bowel Movements 1 Result Diagram: 04/22/17 0411 04/22/17 1145 Procedures Cardiac Catheterization CABG x 3 Objective Remarks GENERAL: SKIN: Warm and dry. HEAD: Atraumatic. Normocephalic. EYES: Pupils equal and round. No scleral icterus. No injection or drainage. ENT: No nasal bleeding or discharge. Mucous membranes pink and moist. NECK: Trachea midline. No JVD. CARDIOVASCULAR: Regular rate and rhythm. RESPIRATORY: No accessory muscle use. DECREASE BREATH SOUNDS LEFT BASE GASTROINTESTINAL: Abdomen soft, non-tender, nondistended. Hepatic and splenic margins not palpable. MUSCULOSKELETAL: Extremities without clubbing, cyanosis, or edema. No obvious deformities. NEUROLOGICAL: Awake and alert. No obvious cranial nerve deficits. Motor grossly within normal limits. Five out of 5 muscle strength in the arms and legs. Normal speech. PSYCHIATRIC: Appropriate mood and affect; insight and judgment normal. Assessment and Plan Assessment and Plan ASS CAD POST CABG TODAY PLAN home today INCREASE ACTIVITY Mallory Tejada MD Apr 22, 2017 15:29
--- NOTE | 2017-04-22 15:33 | PD.CAR.PN ---
CVT Progress Note Subjective/Hospital Course: 56/ [facility] hx of prior CVA and prior PE ( September ) stopped taking his anticoagulation a few weeks ago. Presented to ED with SOB, worsening on exertion , room air sat 60%, he was placed on NRB mask diuresed, then later refused Bipap ventilation , he uses 02 2 liters at home. Developed chest pain on admission Trop 2.58, BNP 662. 2decho showed EF 35-40% moderate MR, moderate TR, moderate pulm HTN 50-60mmhg admitted with hypoxic resp failure, NSTEMI, COPD excacerbation , pulm edema , MIRNA, pt underwent cardiac cath by Dr Burris : multi vessel disease PMH: CVA , COPD, Hx . Bilateral PE - noncompliance. The patient has not taking his Xarelto, Hypertension, Hyperlipidemia, Diabetes with neuropathy, GERD, Pneumonia, Frequent falls, Encephalopathy orthostatic hypotension PFT's FEV1 1.38 43% predicted 04/16 pt remains on 4 liter nasal cannula at night, 2 liters during the day, still has some rales right lower lobe will consult Pulmonology for clearance for surgery and , CT chest did show bilateral pleural effusion R>L plan at this time is for surgery scheduled 04/18 plan is surgery on 04/17 pt on nasal cannula 3 liters appreciate pulmonary input pt was actually only on home 02 for a couple weeks following his last admission he was off 02 weeks before this readmission PFT with some restrictive disease for OR in am 04/18 surgery: CABG x 3, KERR to LAD - fair, SVG to OM2 - fair, SVG to PDA - good , L EVH 04/19 on nasal cannula , up in chair very painful, toradol added / sternal precautions reinstructed weaned off insulin gtt, on insulin sliding scale / restart metformin in am pulm toileting, OOb ambulate transfer to stepdown 04/20 Doing well D/C CT Ambulate 04/21. doing well now on room air Blood sugars improved will leave prevena dressing to chest in place until 04/25/17 continue pulm toileting Objective: GENERAL: SKIN: Warm and dry. prevena to chest , incision to leg HEAD: Normocephalic. EYES: No scleral icterus. No injection or drainage. NECK: Supple, trachea midline. No JVD or lymphadenopathy. CARDIOVASCULAR: Regular rate and rhythm without murmurs, gallops, or rubs. RESPIRATORY: Breath sounds equal bilaterally. No accessory muscle use. few basilar crackle GASTROINTESTINAL: Abdomen soft, non-tender, nondistended. MUSCULOSKELETAL: No cyanosis, or edema. BACK: Nontender without obvious deformity. No CVA tenderness. Vital Signs Date Time Temp Pulse Resp B/P (MAP) Pulse Ox O2 Delivery O2 Flow Rate FiO2 04/22/17 15:16 98.1 90 18 112/70 (84) 94 04/22/17 15:00 86 04/22/17 14:00 94 04/22/17 13:00 90 04/22/17 12:00 94 04/22/17 12:00 98.1 96 20 112/64 (80) 94 04/22/17 12:00 94 Room Air 04/22/17 11:00 86 04/22/17 11:00 94 Room Air 04/22/17 10:00 84 04/22/17 09:22 94 Nasal Cannula 2.00 04/22/17 09:00 88 04/22/17 08:00 94 Nasal Cannula 1.00 04/22/17 08:00 94 Nasal Cannula 1.00 04/22/17 08:00 90 04/22/17 07:30 98.9 90 20 129/80 (96) 94 04/22/17 07:00 90 04/22/17 06:17 85 04/22/17 05:10 90 04/22/17 04:30 Nasal Cannula 2.00 04/22/17 04:30 97.9 93 145/84 (104) 97 04/22/17 04:00 91 04/22/17 03:00 91 04/22/17 02:00 90 04/22/17 01:00 88 04/22/17 00:03 Nasal Cannula 2.00 04/22/17 00:01 98.3 92 154/80 (104) 98 04/22/17 00:00 88 04/21/17 23:35 95 Nasal Cannula 2.00 04/21/17 23:00 88 04/21/17 22:00 88 04/21/17 21:00 88 04/21/17 21:00 90 04/21/17 20:00 97.8 93 169/90 (116) 95 04/21/17 20:00 100 04/21/17 20:00 Nasal Cannula 2.00 04/21/17 19:00 89 04/21/17 18:00 74 04/21/17 17:00 86 04/21/17 16:00 88 04/21/17 16:00 97 Room Air Labs: Laboratory Tests Test 04/22/17 04:11 04/22/17 11:45 White Blood Count 7.1 TH/MM3 (4.0-11.0) Red Blood Count 2.51 MIL/MM3 (4.50-5.90) Hemoglobin 8.0 GM/DL (13.0-17.0) Hematocrit 23.0 % (39.0-51.0) Mean Corpuscular Volume 91.5 FL (80.0-100.0) Mean Corpuscular Hemoglobin 31.8 PG (27.0-34.0) Mean Corpuscular Hemoglobin Concent 34.8 % (32.0-36.0) Red Cell Distribution Width 13.4 % (11.6-17.2) Platelet Count 189 TH/MM3 (150-450) Mean Platelet Volume 9.8 FL (7.0-11.0) Blood Urea Nitrogen 20 MG/DL (7-18) Creatinine 0.64 MG/DL (0.60-1.30) Random Glucose 161 MG/DL (74-106) Calcium Level 8.9 MG/DL (8.5-10.1) Magnesium Level 1.5 MG/DL (1.5-2.5) Sodium Level 139 MEQ/L (136-145) Potassium Level 4.4 MEQ/L (3.5-5.1) Chloride Level 101 MEQ/L (98-107) Carbon Dioxide Level 30.3 MEQ/L (21.0-32.0) Anion Gap 8 MEQ/L (5-15) Estimat Glomerular Filtration Rate 128 ML/MIN (>89) Result Diagram: 04/22/17 0411 04/22/17 1145 (1) NSTEMI (non-ST elevated myocardial infarction) (2) CAD (coronary artery disease) (3) S/P CABG x 3 Plan: ASA, statin , BB , nebs, ezpap acapella ambulate, stable for dc to SNF today (4) Intractable pain Plan: on prn pain meds, scheduled Lyrica (5) DM (diabetes mellitus) Plan: 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
[2017-04-22] MEDS ORDERED: POTA-163 PO (15:35)
[2017-04-22] MEDS ORDERED: FURO1TAB60 PO (15:35)
[2017-04-22] MEDS ORDERED: MAGN400T2 PO (16:14)
--- NOTE | 2017-04-22 16:22 | HHI.DS ---
Discharge Summary Admission Date Apr 13, 2017 at 03:39 Discharge Date: Apr 22, 2017 Admitting Diagnosis Hypoxic Repiratory failure. (1) Acute respiratory failure with hypoxia ICD Code: J96.01 - Acute respiratory failure with hypoxia Diagnosis: Principal Status: Acute (2) NSTEMI (non-ST elevated myocardial infarction) ICD Code: I21.4 - Non-ST elevation (NSTEMI) myocardial infarction Diagnosis: Principal Status: Acute (3) Moderate mitral regurgitation ICD Code: I34.0 - Nonrheumatic mitral (valve) insufficiency Diagnosis: Principal Status: Acute (4) COPD exacerbation ICD Code: J44.1 - Chronic obstructive pulmonary disease with (acute) exacerbation Diagnosis: Principal Status: Acute (5) Pulmonary edema ICD Code: J81.1 - Chronic pulmonary edema Diagnosis: Principal Status: Acute (6) CAD (coronary artery disease) ICD Code: I25.10 - Atherosclerotic heart disease of [place] coronary artery without angina pectoris Diagnosis: Principal Status: Acute (7) MIRNA (acute kidney injury) ICD Code: N17.9 - Acute kidney failure, unspecified Diagnosis: Principal Status: Acute (8) Bilateral pulmonary embolism ICD Code: I26.99 - Other pulmonary embolism without acute cor pulmonale Diagnosis: Secondary Status: Chronic (9) DM (diabetes mellitus) ICD Code: E11.9 - Type 2 diabetes mellitus without complications Diagnosis: Secondary Status: Chronic (10) HTN (hypertension) ICD Code: I10 - Essential (primary) hypertension Diagnosis: Secondary Status: Chronic (11) Hyperlipidemia ICD Code: E78.5 - Hyperlipidemia, unspecified Diagnosis: Secondary Status: Chronic Procedures CABG x 3 Brief History - From Admission This is a 56yM with history of prior stroke and prior PE who presents with 1 day history of shortness of breath which has been worsening since earlier in the day. He endorses dyspnea on exertion. He originally denied chest pain on admission, but over the last hour or two has also developed substernal chest pain which is non-radiating. he states he has never had a heart attack before. Remainder of the ROS is negative unless otherwise stated. He had a prior PE back in September, but he states he stopped taking his anticoagulation a few weeks ago. In the ER he was found to have a room air saturation of 60%. He was placed on a NRB. He was given 80mg lasix iv x 1. His BNP is 662, trop 2.58. He refused BiPAP and then his NRB. on my evaluation he is on 6L o2 by NC with spo2 92%. He has additionally refused little catheter placement. CBC/BMP: 04/22/17 0411 04/22/17 1145 Significant Findings Laboratory Tests Test 04/20/17 05:30 04/22/17 04:11 04/22/17 11:45 Red Blood Count 2.54 MIL/MM3 (4.50-5.90) 2.51 MIL/MM3 (4.50-5.90) Hemoglobin 7.9 GM/DL (13.0-17.0) 8.0 GM/DL (13.0-17.0) Hematocrit 23.4 % (39.0-51.0) 23.0 % (39.0-51.0) Platelet Count 141 TH/MM3 (150-450) Monocytes (%) (Auto) 19.3 % (0.0-8.0) Lymphocytes # (Auto) 0.8 TH/MM3 (1.0-4.8) Monocytes # (Auto) 1.3 TH/MM3 (0-0.9) Blood Urea Nitrogen 19 MG/DL (7-18) 20 MG/DL (7-18) Random Glucose 161 MG/DL (74-106) Imaging Last Impressions Chest X-Ray 04/19/17 0500 Signed Impressions: Service Date/Time: Wednesday, April 19, 2017 04:01 - CONCLUSION: 1. Improving aeration in the right base with developing airspace consolidation/effusion in the left base. 2. Interval removal of the endotracheal and nasogastric tubes. 3. Stable position of left-sided thoracostomy tube without pneumothorax. Kush Vigil MD Lower Extremity Ultrasound 04/13/17 0000 Signed Impressions: Service Date/Time: Thursday, April 13, 2017 20:08 - CONCLUSION: Venous mapping study as described. Samir Nelson MD Carotid Artery Ultrasound 04/13/17 0000 Signed Impressions: Service Date/Time: Thursday, April 13, 2017 19:38 - CONCLUSION: Minimal plaque identified at the carotid bulbs bilaterally. No evidence of hemodynamically significant carotid stenosis. Canelo Rea MD CT Angiography 04/13/17 0000 Signed Impressions: Service Date/Time: Thursday, April 13, 2017 03:11 - CONCLUSION: 1. No evidence for pulmonary embolism. 2. Patchy groundglass densities with bibasilar consolidation and bilateral pleural effusions, likely CHF. 3. Coronary artery calcifications. Holden Lin MD PE at Discharge GENERAL: Middle-aged male, lying in bed, in mild distress due to dyspnea and anxiety HEENT: Normocephalic. Atraumatic. Pupils equal, round, reactive, conjugate. Mucous membranes are moist NECK: Trachea is midline. There is no JVD. CHEST: Air entry equal bilaterally with scattered crackles. anterior chest dressed, CARDIOVASCULAR: S1-S2 normal. ABDOMEN: Soft, nontender, nondistended. No guarding. MUSCULOSKELETAL: Pulses 2+. No peripheral edema. NEUROLOGICAL: Alert awake oriented no focal deficits Transfer Summary This is a 56yM with history of prior stroke and prior PE who presents with 1 day history of shortness of breath which has been worsening since earlier in the day. He endorses dyspnea on exertion. He originally denied chest pain on admission, but over the last hour or two has also developed substernal chest pain which is non-radiating. he states he has never had a heart attack before. Remainder of the ROS is negative unless otherwise stated. He had a prior PE back in September, but he states he stopped taking his anticoagulation a few weeks ago. In the ER he was found to have a room air saturation of 60%. He was placed on a NRB. He was given 80mg lasix iv x 1. His BNP is 662, trop 2.58. He refused BiPAP and then his NRB. on my evaluation he is on 6L o2 by NC with spo2 92%. He has additionally refused little catheter placement. 04/14: Anxious overnight. Remained on pNRB overnight, no down to 50% VM. Echo- Estimated ejection fraction in the range of 35-40%. limited LV wall motion assessment moderate MR. Moderate TR. Moderate pulmonary hypertension present ( range 50-60 mmHg). Cardiac cath: 04/13 Severe multivessel disease. CTS Dr. Reid planning on CABG mid week. CXR unchanged on my review. Intermittent chest pain, but improved 04/15: O2 saturation improved on NC, intermittent mild desaturation while sleeping. CXR pending, rales improved. 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 He endorses dyspnea on exertion. He originally denied chest pain on admission, but over the last hour or two has also developed substernal chest pain which is non-radiating. he states he has never had a heart attack before. Remainder of the ROS is negative unless otherwise stated. He had a prior PE back in September, but he states he stopped taking his anticoagulation a few weeks ago. In the ER he was found to have a room air saturation of 60%. He was placed on a NRB. He was given 80mg Lasix iv x 1. His BNP is 662, trop 2.58. He refused BiPAP and then his NRB. on my evaluation he is on 6L o2 by NC with spo2 92%. He has additionally refused Little catheter placement. 04/14: Anxious overnight. Remained on pNRB overnight, no down to 50% VM. Echo- Estimated ejection fraction in the range of 35-40%. limited LV wall motion assessment moderate MR. Moderate TR. Moderate pulmonary hypertension present ( range 50-60 mmHg). Cardiac cath: 04/13 Severe multivessel disease. CTS Dr. Reid planning on CABG mid week. CXR unchanged on my review. Intermittent chest pain, but improved Hospitalist Notes: 04/16: Patient transfer to be followed by medical team, discussed with nurse Miss Avina in Intensive Care Unit, he is transferred to Cardiac floor, no nausea, vomit or diarrhea, asking for pain medicine, as per patient continue with thoracic pain and low back pain from trauma related to syncopal episodes. but stable awaiting for procedure to be performed this next . 04/18/1704/17: Stable in his bedroom, discussed with nurse Miss Shields, no nausea, vomit or diarrhea. Walking in his bedroom, totally asymptomatic. 818: Patient Out of Intensive Care Unit, now Status post CABG x 3, Left Internal Mammary Artery to LAD, Saphenous Vein Graft to OM2 Obtuse Marginal Branch, SVG to Posterior descending Coronary artery. Aspirin, Statin and Beta blockers , Diuretics, discussed with patient and nurse Miss Mckoy, he will have Chest tubes removed later today, continue Bronchodilator, Mucolytic and incentive spirometry, early ambulation. 04/21: Seen walking in the aisle with Physical Therapy, Chest tubes removed by Cardiothoracic surgery, no complaint, improving condition, has mild inspiratory crackles on both bases, discussed with nurse Miss Mckoy. 04/22: Stable in his bedroom, discussed with nurse Miss Mckoy already recommended by Cardiothoracic surgery assistant for discharge. discussed with ] patient and no complaint. Assessment and Plan 1. Acute Hypoxic and Hypercarbic Respiratory Failure, continue Oxygen to keep Oxygen saturation over 90%, BiPAP as tolerated Bronchodilator, Mucolytic and Incentive Spirometry 2. CHF exacerbation/NSTEMI and Hypoxemia, in a patient with status post Cardiac Catheterization showed Severe Multivessel Coronary artery disease, Cardiothoracic Surgery planning CABG mid week, continue Heparin, Aspirin, Beta Blockers and aggressive forced diuresis Echocardiogram EF 35-40%, Moderate MR, was on Lasix. 3. NSTEMI/Moderate MR Nitroglycerine, Beta blockers. anticoagulation with Heparin. Aspirin, Cardiology Dr. Burris- Cath shows severe multivessel CAD. Dr. Reid from CTS following, status post CABG x 3, Left Internal Mammary Artery to LAD, Saphenous Vein Graft to OM2 Obtuse Marginal Branch, SVG to Posterior descending Coronary artery. Aspirin, Statin and Beta blockers, Diuretics Chest tubes removed. 4. COPD to continue Bronchodilator, Mucolytic and incentive spirometry. 5. History of Prior Pulmonary Emboli anticoagulation as per Surgical team. 6. Medical Non compliance 7. Acute blood loss anemia stable DVT prophylaxis as per Surgical Team. at this time okay to discharge from surgical standpoint. okay from Medicine. Discharge Planning discharge to SNF Pt Condition on Discharge: Good Discharge Disposition: Discharge to SNF Discharge Time: > 30 minutes Discharge Instructions DIET: Follow Instructions for: Heart Healthy Diet, Diabetic Diet Activities you can perform: Full Weight Bearing, Shower Only-No Bath Activities to Avoid: Strenuous Activity, Driving Other Activity Instructions: no lifting > 10 lbs or gallon of milk Tim Grubbs MD Apr 22, 2017 16:22
[2017-04-22] MEDS ORDERED: MAGNESIUM OXIDE 400 MG TAB PO SCH (21:00)
[2017-04-23] MEDS ORDERED: LISI2.5T3 PO (15:14)
--- NOTE | 2017-04-26 09:49 | RSPPFT ---
DATE OF PROCEDURE: 04/14/17 COMMENTS: Spirometry demonstrates an FEV1 1.3 at 43% of predicted, FVC of 1.6 at 41%, FEF 25-75 is 53%. Flow volume loops suggest a restrictive pattern. IMPRESSION: 1. Mild to moderate obstructive disease. 2. Additional moderate restrictive disease.
== END 2017-04-22 18:39 | DRG 233 ==
LOC: NEPE 01:11 → NEDA 03:39 → HCVR 05:20 → HCIN 04-16 09:13 → HCIS 04-18 07:15 → HCVR 04-18 12:30 → HCIN 04-19 11:57
PROVIDERS: ADMIT Internal Medicine; ATTEND Internal Medicine
PROC: 4A023N7 Measurement of Cardiac Sampling and Pressure, Left Heart, Percutaneous Approach (ICD-10-PCS; 2017-04-13)
PROC: B2111ZZ Fluoroscopy of Multiple Coronary Arteries using Low Osmolar Contrast (ICD-10-PCS; 2017-04-13)
PROC: B2151ZZ Fluoroscopy of Left Heart using Low Osmolar Contrast (ICD-10-PCS; 2017-04-13)
PROC: 02100Z9 Bypass Coronary Artery, One Artery from Left Internal Mammary, Open Approach (ICD-10-PCS; 2017-04-18)
PROC: 06BP4ZZ Excision of Right Saphenous Vein, Percutaneous Endoscopic Approach (ICD-10-PCS; 2017-04-18)
PROC: 5A1221Z Performance of Cardiac Output, Continuous (ICD-10-PCS; 2017-04-18)
PROC: B246ZZ4 Ultrasonography of Right and Left Heart, Transesophageal (ICD-10-PCS; 2017-04-18)
PROC: 021109W Bypass Coronary Artery, Two Arteries from Aorta with Autologous Venous Tissue, Open Approach (ICD-10-PCS; principal; 2017-04-18 07:19)
DX: I21.4 Non-ST elevation (NSTEMI) myocardial infarction (principal); J96.01 Acute respiratory failure with hypoxia; I50.41 Acute combined systolic (congestive) and diastolic (congestive) heart failure; J96.02 Acute respiratory failure with hypercapnia; N17.9 Acute kidney failure, unspecified; I50.43 Acute on chronic combined systolic (congestive) and diastolic (congestive) heart failure; D62 Acute posthemorrhagic anemia; I25.5 Ischemic cardiomyopathy; R26.81 Unsteadiness on feet; I25.10 Atherosclerotic heart disease of native coronary artery without angina pectoris; K21.9 Gastro-esophageal reflux disease without esophagitis; I11.0 Hypertensive heart disease with heart failure; E11.40 Type 2 diabetes mellitus with diabetic neuropathy, unspecified; E78.00 Pure hypercholesterolemia, unspecified; E87.6 Hypokalemia; E78.5 Hyperlipidemia, unspecified; I95.1 Orthostatic hypotension; I08.1 Rheumatic disorders of both mitral and tricuspid valves; I27.2 Other secondary pulmonary hypertension; H91.90 Unspecified hearing loss, unspecified ear; R29.6 Repeated falls; F41.9 Anxiety disorder, unspecified; T45.516A Underdosing of anticoagulants, initial encounter; Z79.01 Long term (current) use of anticoagulants; Z79.4 Long term (current) use of insulin; Z86.711 Personal history of pulmonary embolism; Z86.73 Personal history of transient ischemic attack (TIA), and cerebral infarction without residual deficits; Z87.891 Personal history of nicotine dependence; Z88.5 Allergy status to narcotic agent; Z91.128 Patient's intentional underdosing of medication regimen for other reason; Z91.19 Patient's noncompliance with other medical treatment and regimen; Z99.81 Dependence on supplemental oxygen
CPT/HCPCS: 36600; 71010; 71020; 71275; 76937; 80048; 80053; 80061; 81001; 82550; 82552; 82805; 82948; 83036; 83735; 83880; 84484; 85002; 85014; 85025; 85027; 85730; 86850; 86900; 86901; 86920; 87641; 93005; 93306; 93318; 93458; 93880; 93970; 93998; 94002; 94010; 94150; 94640; 94664; 94667; 94668; 96365; 96375; C1769; C1893; C9248; C9399; J0131; J0583; J0690; J1170; J1200; J1644; J1815; J1885; J1940; J2060; J2150; J2250; J2370; J2440; J2720; J2930; J3010; J3370; J3475; J3480; J7040; J7050; J7120; P9047; Q9967

== ENCOUNTER 2017-04-26 08:46 | Emergency (ER) | payer OTHER ==
[~2017-04-26 08:46] MED LIST changes: +DOCU1CAP39 PO; +FURO1TAB60 PO; +LISI2.5T3 PO; +MAGN400T2 PO; +METO25TA3 PO; -OXYGENTANK NAS.CANULA; +POTA-163 PO; +SYMB160A INH; +THERM PO; +VENL50TA PO; -XARE20TA PO
[2017-04-26 08:53] VITALS: BP 108/60; PULSE 82; RESP 15; TEMP 87.8; O2SAT 89
[2017-04-26] MEDS ORDERED: oxyCODONE/ACETAMINOPHEN 5 MG/325 MG TAB PO ONE (09:15)
--- NOTE | 2017-04-26 09:45 | RADRPT ---
EXAM DATE/TIME: 04/26/2017 09:38 [facility] COMPARISON: CT BRAIN W/O CONTRAST, April 04, 2017, 18:48. INDICATIONS : Fall, left eyebrow laceration. RADIATION DOSE: 31.77 CTDIvol (mGy) MEDICAL HISTORY : Stroke. Hypertension. Chronic obstructive pulmonary disease. SURGICAL HISTORY : CABG ENCOUNTER: Initial ACUITY: 1 day PAIN SCALE: 4/10 LOCATION: Left frontal TECHNIQUE: Multiple contiguous axial images were obtained of the head. Using automated exposure control and adj ustment of the mA and/or kV according to patient size, radiation dose was kept as low as reasonably a chievable to obtain optimal diagnostic quality images. DICOM format image data is available electro nically for review and comparison. FINDINGS: CEREBRUM: The ventricles are normal. There is mild cerebral atrophy. No evidence of midline shift, mass lesion , hemorrhage or acute infarction. No extra-axial fluid collections are seen. POSTERIOR FOSSA: The cerebellum and brainstem demonstrate no acute finding. The 4th ventricle is midline. The cerebe llopontine angle is unremarkable. EXTRACRANIAL: There is stable near complete opacification of the visualized right maxillary sinus. SKULL: The calvaria is intact. No evidence of skull fracture. CONCLUSION: 1. No acute intracranial abnormality is identified. 2. Chronic near complete opacification of the right maxillary antrum. Guerrero Alva MD on April 26, 2017 at 9:42 Board Certified Radiologist. This report was verified electronically.
--- NOTE | 2017-04-26 10:49 | PD ---
HPI Chief Complaint: Fall Time Seen by Provider: 09:08 Travel History International Travel<30 days: No Contact w/Intl Traveler<30days: No Traveled to known affect area: No History of Present Illness HPI 83-year-old man who presents to the emergency department after a fall. She is at [facility]. He states he slipped and fell on the tile floor always in his socks. He is recovering from recent bypass surgery 04/[address] Reid he has multiple medical comorbidities. He is on Xarelto. A small laceration above his left brow. Denies LOC. States he overall has been recovering okay. Denies any lightheadedness or dizziness associated with the fall. History Past Medical History Narrative Medical CAD, [place], history of CABG 04/18/2017 Diabetes COPD CAD Hypertension Hyperlipidemia History of PE, on Xarelto Influenza Vaccination: Yes Social History Alcohol Use: No (QUIT 05/2016) Tobacco Use: No Allergies-Medications (Allergen,Severity, Reaction): Coded Allergies: morphine (Unverified Allergy, Mild, 04/26/17) Reported Meds & Prescriptions Reported Meds & Active Scripts Active Lisinopril 2.5 Mg Tab 2.5 Mg PO DAILY hold for SBP<100 Magnesium Oxide 400 Mg Tab 400 Mg PO BID 5 Days Potassium Chloride ER (Potassium Chloride) 20 Meq Tab 20 Meq PO DAILY 7 Days Lasix (Furosemide) 40 Mg Tab 40 Mg PO DAILY 7 Days Oxycodone (Oxycodone HCl) 10 Mg Tab 10 Mg PO Q6H PRN Thera M Plus (Multivitamins/Minerals Therapeutic) 1 Tab 1 Tab PO DAILY MDD one tab Symbicort Inh (Budesonide/Formoterol Fumarate) 160-4.5 Mcg/Act Aero 1 Puff INH Q12HR Metoprolol Tartrate 25 Mg Tab 12.5 Mg PO BID Ferrous Sulfate 325 Mg (65 Mg Iron) Tablet 325 Mg PO BIDPC Fludrocortisone (Fludrocortisone Acetate) 0.1 Mg Tab 0.1 Mg PO DAILY Rollator Ultra-Light (Device) 1 Mis Mis 1 Ea .ROUTE DIRECTED Reported Effexor (Venlafaxine HCl) 50 Mg Tab 50 Mg PO Q12H Glucose (Dextrose) 15 Gm/60 Ml Liquid 12 Gm PO B-12 (Cyanocobalamin) 2,000 Mcg Tab 2,000 Mcg PO DAILY Duoneb (Ipratropium-Albuterol Neb) 0.5-2.5 Mg/3 Ml Neb 1 Nebule INH Q8HR NEB PRN Lyrica (Pregabalin) 75 Mg Cap 75 Mg PO BID Protonix (Pantoprazole Sodium) 40 Mg Tab 40 Mg PO DAILY Olanzapine 10 Mg Tab 10 Mg PO HS Lipitor (Atorvastatin Calcium) 20 Mg Tab 20 Mg PO HS Aspirin 81 Mg Chew 81 Mg CHEW DAILY Lantus Inj (Insulin Glargine) 1,000 Unit/10 Ml Vial 12 Units SQ DAILY Metformin (Metformin HCl) 1,000 Mg Tab 1,000 Mg PO BIDPC With meals Review of Systems Except as stated in HPI: all other systems reviewed are Neg Physical Exam Narrative GENERAL: Pale appearing. No acute distress. SKIN: Focused skin assessment warm/dry. HEAD: Atraumatic. Normocephalic. EYES: Pupils equal and round. Pale conjunctiva. ENT: No nasal bleeding or discharge. Mucous membranes pink and moist. Small laceration above the left brow. Small laceration on the bridge of the nose. No significant tenderness. NECK: Trachea midline. No JVD. CARDIOVASCULAR: Regular rate and rhythm. No murmur appreciated. Midline CABG surgical incision is well-healing. Minimal tenderness. No erythema redness or drainage. RESPIRATORY: No accessory muscle use. Clear to auscultation. Breath sounds equal bilaterally. GASTROINTESTINAL: Abdomen soft, non-tender, nondistended. Hepatic and splenic margins not palpable. MUSCULOSKELETAL: No obvious deformities. Trace edema. NEUROLOGICAL: Awake and alert. No obvious cranial nerve deficits. Motor grossly within normal limits. Normal speech. PSYCHIATRIC: Appropriate mood and affect; insight and judgment normal. Data Data Last Documented VS Vital Signs Date Time Temp Pulse Resp B/P (MAP) Pulse Ox O2 Delivery O2 Flow Rate FiO2 04/26/17 11:53 83 17 109/59 (76) 95 Nasal Cannula 2.00 04/26/17 08:[address] Brain W/O Iv Contrast(Rout) (04/26/17 ) Oxycodone-Acetamin 5-325 Mg (Percocet (04/26/17 09:15) Complete Blood Count With Diff (04/26/17 10:46) Basic Metabolic Panel (Bmp) (04/26/17 10:46) Lidocaine 1% Inj (50 Ml) (Xylocaine 1% I (04/26/17 11:00) Labs Laboratory Tests Test 04/26/17 10:55 White Blood Count 10.4 TH/MM3 Red Blood Count 2.51 MIL/MM3 Hemoglobin 7.4 GM/DL Hematocrit 22.8 % Mean Corpuscular Volume 90.7 FL Mean Corpuscular Hemoglobin 29.5 PG Mean Corpuscular Hemoglobin Concent 32.5 % Red Cell Distribution Width 13.9 % Platelet Count 257 TH/MM3 Mean Platelet Volume 7.9 FL Neutrophils (%) (Auto) 76.6 % Lymphocytes (%) (Auto) 9.7 % Monocytes (%) (Auto) 10.4 % Eosinophils (%) (Auto) 2.9 % Basophils (%) (Auto) 0.4 % Neutrophils # (Auto) 8.0 TH/MM3 Lymphocytes # (Auto) 1.0 TH/MM3 Monocytes # (Auto) 1.1 TH/MM3 Eosinophils # (Auto) 0.3 TH/MM3 Basophils # (Auto) 0.0 TH/MM3 CBC Comment DIFF FINAL Differential Comment Blood Urea Nitrogen 50 MG/DL Creatinine 1.34 MG/DL Random Glucose 126 MG/DL Calcium Level 8.5 MG/DL Sodium Level 138 MEQ/L Potassium Level 4.9 MEQ/L Chloride Level 101 MEQ/L Carbon Dioxide Level 27.4 MEQ/L Anion Gap 10 MEQ/L Estimat Glomerular Filtration Rate 55 ML/MIN MDM Medical Decision Making Medical Screen Exam Complete: Yes Emergency Medical Condition: Yes Interpretation(s) CT head negative. CBC with a hemoglobin of 7.4. Differential Diagnosis Fall, anemia, head bleed, laceration, other Narrative Course Medical decision making 56-year-old man recovering following bypass surgery following [place] and respiratory difficulties, and [place] manner for the past couple days, slip and fall related to socks on tile floor. Small laceration to the brow. CT is negative. He is on Xarelto. He looks pretty pale. I will check a CBC and basic labs. No other apparent injuries. FINAL: 56-year-old man slip and fall. Had a laceration repaired. CT heads negative. On blood thinners. Little bit more anemic than he was in the left the hospital. I spoke with this CT surgery team. Given that he is not having lightheadedness shortness of breath chest pain or other symptoms, recommend iron pills and close monitoring. Diagnosis Primary Impression: Closed head injury Additional Impressions: Facial laceration Anemia Additional Instructions: Take iron pills as prescribed. Monitor hemoglobin closely. It was 8 on discharge, 7.4 today, no acute symptoms , recommend iron pills and monitoring. Keep wound clean and dry. Do not wet for 24 hours. After 24 hours and clean the wound gently with soap and water. Gently clean wound twice daily with soap and water. Do not soak wound. No swimming, hot tubs, or allowing wound to get too wet. Apply antibiotic ointment to wound twice daily. Return to the emergency department for any worsening pain, swelling, redness, significant bleeding, or any other new or worsening symptoms. Sutures can be removed in 5-7 days. Take precautions to prevent falls. Med/Other Pt SpecificInfo: Prescription(s) given Scripts Ferrous Sulfate (Iron) 325 Mg Cap 325 MG PO BIDPC for Nutritional Supplement, #60 TAB 0 Refills Prov: Garett Perry MD 04/26/17 Disposition: 01 DISCHARGE HOME Condition: Stable Garett Perry MD Apr 26, 2017 10:49
[2017-04-26] MEDS ORDERED: LIDOCAINE HCL 1% 50 ML VIAL INFIL ONE (11:00)
[2017-04-26 11:17] LABS: BASOPHIL % 0.4 % (0.0-2.0); EOSINOPHIL # 0.3 TH/MM3 (0-0.4); EOSINOPHIL % 2.9 % (0.0-4.0); HEMATOCRIT 22.8 % (39.0-51.0); HEMO FLAGS DIFF FINAL; LYMPH % 9.7 % (9.0-44.0); MEAN CELL VOLUME 90.7 FL (80.0-100.0); MEAN CORPUSCULAR HEMOGLOBIN 29.5 PG (27.0-34.0); MEAN CORPUSCULAR HGB CONC 32.5 % (32.0-36.0); MONO % 10.4 % (0.0-8.0); NEUT % 76.6 % (16.0-70.0); PLATELET COUNT 257 TH/MM3 (150-450); RED BLOOD COUNT 2.51 MIL/MM3 (4.50-5.90); RED CELL DISTRIBUTION WIDTH 13.9 % (11.6-17.2); WHITE BLOOD COUNT 10.4 TH/MM3 (4.0-11.0)
[2017-04-26 11:23] LABS: BICARBONATE 27.4 MEQ/L (21.0-32.0); POTASSIUM 4.9 MEQ/L (3.5-5.1)
--- NOTE | 2017-04-26 11:32 | PD ---
Physical Exam Date Seen by Provider: Apr 26, 2017 Time Seen by Provider: 11:27 Narrative I was asked by Dr. Perry to repair a laceration to the left forehead just above eyebrow. Please refer to his note for full H&P. Data Data Last Documented VS Vital Signs Date Time Temp Pulse Resp B/P (MAP) Pulse Ox O2 Delivery O2 Flow Rate FiO2 04/26/17 08:53 87.8 82 15 108/60 (76) [address] Brain W/O Iv Contrast(Rout) (04/26/17 ) Oxycodone-Acetamin 5-325 Mg (Percocet (04/26/17 09:15) Complete Blood Count With Diff (04/26/17 10:46) Basic Metabolic Panel (Bmp) (04/26/17 10:46) Lidocaine 1% Inj (50 Ml) (Xylocaine 1% I (04/26/17 11:00) Labs Laboratory Tests Test 04/26/17 10:55 White Blood Count 10.4 TH/MM3 Red Blood Count 2.51 MIL/MM3 Hemoglobin 7.4 GM/DL Hematocrit 22.8 % Mean Corpuscular Volume 90.7 FL Mean Corpuscular Hemoglobin 29.5 PG Mean Corpuscular Hemoglobin Concent 32.5 % Red Cell Distribution Width 13.9 % Platelet Count 257 TH/MM3 Mean Platelet Volume 7.9 FL Neutrophils (%) (Auto) 76.6 % Lymphocytes (%) (Auto) 9.7 % Monocytes (%) (Auto) 10.4 % Eosinophils (%) (Auto) 2.9 % Basophils (%) (Auto) 0.4 % Neutrophils # (Auto) 8.0 TH/MM3 Lymphocytes # (Auto) 1.0 TH/MM3 Monocytes # (Auto) 1.1 TH/MM3 Eosinophils # (Auto) 0.3 TH/MM3 Basophils # (Auto) 0.0 TH/MM3 CBC Comment DIFF FINAL Differential Comment MDM Medical Record Reviewed: Yes Supervised Visit with ROSALIE: No Differential Diagnosis forehead laceration Narrative Course Patient gave verbal consent for repair. He tolerated placement of sutures (4) without incident. He will need to have sutures removed in 5-7 days. Procedures Procedure Narrative LACERATION LOCATION: Left Forehead LENGTH: 2 cm NUMBER OF STITCHES: 4 Laceration repair to left forehead. Laceration was first anesthesized using 2 mL of 1% Lidocaine. Laceration was then cleaned with normal saline and betadine. Four sutures were then placed using 6-0 prolene. Wound was then cleaned again. Additional Instruction: 4 sutures will need to be removed in 5-7 days. This can be done at your primary care doctor's office or return to the Emergency department. Cat Liu Apr 26, 2017 11:32
[2017-04-26 11:53] VITALS: BP 109/59; PULSE 83; RESP 17; O2SAT 95
[2017-04-26] MEDS ORDERED: FERR325C PO (12:43)
== END 2017-04-26 19:13 | disposition home or self-care (01) ==
LOC: NEPD 08:46 → NEDAMB 19:13
DX: S01.81XA Laceration without foreign body of other part of head, initial encounter (principal); W01.0XXA Fall on same level from slipping, tripping and stumbling without subsequent striking against object, initial encounter; Y93.89 Activity, other specified; Y92.129 Unspecified place in nursing home as the place of occurrence of the external cause; Z95.1 Presence of aortocoronary bypass graft; E11.9 Type 2 diabetes mellitus without complications; J44.9 Chronic obstructive pulmonary disease, unspecified; I10 Essential (primary) hypertension; E78.5 Hyperlipidemia, unspecified; Z86.711 Personal history of pulmonary embolism; Z79.4 Long term (current) use of insulin; Z79.01 Long term (current) use of anticoagulants; Z79.84 Long term (current) use of oral hypoglycemic drugs
CPT/HCPCS: 12011; 70450; 80048; 85025

== ENCOUNTER 2017-04-27 11:07 | Inpatient (IN) | payer OTHER ==
[~2017-04-27] VITALS: Ht 172.7 cm; Wt 84.5 kg
[~2017-04-27 11:07] MED LIST changes: -DOCU1CAP39 PO; -EMPA1TAB PO; +FERR325C PO
[2017-04-27 11:15] VITALS: BP 111/62; PULSE 77; RESP 18; TEMP 98.4; O2SAT 88
[2017-04-27 12:06] LABS: AUTOMATED NEUTROPHIL # 7.6 TH/MM3 (1.8-7.7); BASOPHIL % 0.4 % (0.0-2.0); EOSINOPHIL % 0.5 % (0.0-4.0); HEMATOCRIT 23.3 % (39.0-51.0); HEMO FLAGS DIFF FINAL; LYMPH % 11.4 % (9.0-44.0); LYMPHOCYTE # 1.1 TH/MM3 (1.0-4.8); MEAN CELL VOLUME 91.4 FL (80.0-100.0); MEAN CORPUSCULAR HEMOGLOBIN 29.2 PG (27.0-34.0); MEAN CORPUSCULAR HGB CONC 31.9 % (32.0-36.0); MONO % 9.1 % (0.0-8.0); NEUT % 78.6 % (16.0-70.0); PLATELET COUNT 272 TH/MM3 (150-450); RED BLOOD COUNT 2.55 MIL/MM3 (4.50-5.90); WHITE BLOOD COUNT 9.6 TH/MM3 (4.0-11.0)
--- NOTE | 2017-04-27 12:09 | RADRPT ---
EXAM DATE/TIME: 04/27/2017 11:44 [facility] COMPARISON: CHEST SINGLE AP, April 19, 2017, 4:01. INDICATIONS : Short of Breath MEDICAL HISTORY : Stroke. Hypertension. Chronic obstructive pulmonary disease SURGICAL HISTORY : CABG. ENCOUNTER: Initial ACUITY: 1 day PAIN SCORE: 4/10 LOCATION: Bilateral chest FINDINGS: Single view of the chest demonstrates interval removal of a left-sided chest tube. The lungs are well -inflated and clear. No evidence of pneumothorax. The heart size is normal. Bony vasculature is sita l. Intact median sternotomy wires and surgical plate and screws traversing the left clavicle. CONCLUSION: No evidence of pneumothorax or airspace consolidation. Chloe Walsh MD on April 27, 2017 at 12:06 Board Certified Radiologist. This report was verified electronically.
[2017-04-27 12:12] LABS: BACTERIA, URINE RARE /hpf; BLOOD, URINE NEG (NEG); COMMENT (UR) CULT NOT INDICATED; CULTURE IF INDICATED CULT NOT INDICATED; GLUCOSE,URINE 1000 mg/dL (NEG); HYALINE CAST, URINE 32 /lpf (RARE); KETONE, URINE NEG (NEG); MUCUS URINE FEW /lpf (OCC); NITRITE,URINE NEG (NEG); PH, URINE 5.5 (5.0-8.5); SQUAMOUS EPITHELIAL CELL URINE <1 /hpf (0-5); URINE COLOR YELLOW (YELLW/STRAW)
[2017-04-27 12:40] LABS: ALKALINE PHOSPHATASE 262 U/L (45-117); ALT (GPT) 567 U/L (12-78); ANION GAP 10 MEQ/L (5-15); AST (GOT) 892 U/L (15-37); BICARBONATE 26.9 MEQ/L (21.0-32.0); BLOOD UREA NITROGEN 65 MG/DL (7-18); CHLORIDE 101 MEQ/L (98-107); GLOMERULAR FILTRATION RATE 37 ML/MIN (>89); POTASSIUM 5.8 MEQ/L (3.5-5.1); SODIUM (NA) 138 MEQ/L (136-145); TOTAL BILIRUBIN ADULT 1.2 MG/DL (0.2-1.0)
[2017-04-27] MEDS ORDERED: FUROSEMIDE 40 MG/4 ML VIAL IV PUSH ONE (13:15)
--- NOTE | 2017-04-27 14:03 | PD ---
HPI Chief Complaint: General Weakness Time Seen by Provider: 11:29 Travel History International Travel<30 days: No Contact w/Intl Traveler<30days: No Traveled to known affect area: No History of Present Illness HPI A 56-year-old man who presents to the emergency department sent from [facility]. He is recovering from recent bypass surgery 04/[address] Reid he has multiple medical comorbidities. He is on Xarelto for previous PE. He was seen yesterday after a fall when he slipped on the floor and his socks. He had a cut. He had some anemia, hemoglobin down to 7.4 from 8.0 at discharge. He presents back today reportedly for confusion. They did increase his oxycodone every 6-40 gallon the middle the night last night. He does seem a little more confused than yesterday. He states he feels very generally weak, little bit more than he did when he started rehabilitation. He has some shortness of breath, and his room air oxygen saturations were in the low to mid 80s. History Past Medical History Narrative Medical CAD, [place], history of CABG 04/18/2017 Diabetes COPD CAD Hypertension Hyperlipidemia History of PE, on Xarelto Social History Alcohol Use: No (QUIT 05/2016) Tobacco Use: No Allergies-Medications (Allergen,Severity, Reaction): Coded Allergies: morphine (Unverified Allergy, Mild, 04/26/17) Reported Meds & Prescriptions Reported Meds & Active Scripts Active Iron (Ferrous Sulfate) 325 Mg Cap 325 Mg PO BIDPC Lisinopril 2.5 Mg Tab 2.5 Mg PO DAILY hold for SBP<100 Magnesium Oxide 400 Mg Tab 400 Mg PO BID 5 Days Potassium Chloride ER (Potassium Chloride) 20 Meq Tab 20 Meq PO DAILY 7 Days Lasix (Furosemide) 40 Mg Tab 40 Mg PO DAILY 7 Days Oxycodone (Oxycodone HCl) 10 Mg Tab 10 Mg PO Q6H PRN Thera M Plus (Multivitamins/Minerals Therapeutic) 1 Tab 1 Tab PO DAILY MDD one tab Symbicort Inh (Budesonide/Formoterol Fumarate) 160-4.5 Mcg/Act Aero 1 Puff INH Q12HR Metoprolol Tartrate 25 Mg Tab 12.5 Mg PO BID Ferrous Sulfate 325 Mg (65 Mg Iron) Tablet 325 Mg PO BIDPC Fludrocortisone (Fludrocortisone Acetate) 0.1 Mg Tab 0.1 Mg PO DAILY Rollator Ultra-Light (Device) 1 Mis Mis 1 Ea .ROUTE DIRECTED Reported Effexor (Venlafaxine HCl) 50 Mg Tab 50 Mg PO Q12H Glucose (Dextrose) 15 Gm/60 Ml Liquid 12 Gm PO B-12 (Cyanocobalamin) 2,000 Mcg Tab 2,000 Mcg PO DAILY Duoneb (Ipratropium-Albuterol Neb) 0.5-2.5 Mg/3 Ml Neb 1 Nebule INH Q8HR NEB PRN Lyrica (Pregabalin) 75 Mg Cap 75 Mg PO BID Protonix (Pantoprazole Sodium) 40 Mg Tab 40 Mg PO DAILY Olanzapine 10 Mg Tab 10 Mg PO HS Lipitor (Atorvastatin Calcium) 20 Mg Tab 20 Mg PO HS Aspirin 81 Mg Chew 81 Mg CHEW DAILY Lantus Inj (Insulin Glargine) 1,000 Unit/10 Ml Vial 12 Units SQ DAILY Metformin (Metformin HCl) 1,000 Mg Tab 1,000 Mg PO BIDPC With meals Review of Systems Except as stated in HPI: all other systems reviewed are Neg Physical Exam Narrative GENERAL: Pale 56-year-old man, appears generally debilitated, no acute distress. SKIN: Focused skin assessment warm/dry. HEAD: Atraumatic. Normocephalic. EYES: Pupils equal and round. No scleral icterus. No injection or drainage. He had a sutured laceration just above the left brow. ENT: No nasal bleeding or discharge. Mucous membranes pink and moist. NECK: Trachea midline. No JVD. CARDIOVASCULAR: Regular rate and rhythm. No murmur appreciated. RESPIRATORY: Rales at the posterior lung staley. No respiratory distress. GASTROINTESTINAL: Abdomen soft, non-tender, nondistended. Hepatic and splenic margins not palpable. MUSCULOSKELETAL: No obvious deformities. 1+ edema in both lower extremities. NEUROLOGICAL: Awake and alert. Mild confusion. No obvious cranial nerve deficits. Motor grossly within normal limits. Normal speech. PSYCHIATRIC: Appropriate mood and affect; insight and judgment normal. Data Data Last Documented VS Vital Signs Date Time Temp Pulse Resp B/P (MAP) Pulse Ox O2 Delivery O2 Flow Rate FiO2 04/27/17 11:30 78 18 88 Room Air 04/27/17 11:15 98.4 111/62 (78) Orders Orders Complete Blood Count With Diff (04/27/17 11:29) Comprehensive Metabolic Panel (04/27/17 11:29) B-Type Natriuretic Peptide (04/27/17 11:29) Iv Access Insert/Monitor (04/27/17 11:29) Urinalysis - C+S If Indicated (04/27/17 11:29) Chest, Single Ap (04/27/17 ) Furosemide Inj (Lasix Inj) (04/27/17 13:15) Electrocardiogram (04/27/17 ) Aspirin Chew (Aspirin Chew) (04/28/17 09:00) Atorvastatin (Lipitor) (04/27/17 21:00) Ferrous Sulfate (Ferrous Sulfate) (04/27/17 18:00) Fludrocortisone (Florinef) (04/28/17 09:00) Magnesium Oxide (Mag-Ox) (04/27/17 21:00) Metoprolol Tartrate (Lopressor) (04/27/17 21:00) Olanzapine (Zyprexa) (04/27/17 21:00) Pantoprazole (Protonix) (04/28/17 09:00) Pregabalin (Lyrica) (04/27/17 21:00) Venlafaxine (Effexor) (04/27/17 14:30) (Nf) Lisinopril (04/28/17 09:00) Admit Order (Ed Use Only) (04/27/17 ) Labs Laboratory Tests Test 04/27/17 11:32 04/27/17 11:50 White Blood Count 9.6 TH/MM3 Red Blood Count 2.55 MIL/MM3 Hemoglobin 7.4 GM/DL Hematocrit 23.3 % Mean Corpuscular Volume 91.4 FL Mean Corpuscular Hemoglobin 29.2 PG Mean Corpuscular Hemoglobin Concent 31.9 % Red Cell Distribution Width 14.0 % Platelet Count 272 TH/MM3 Mean Platelet Volume 8.4 FL Neutrophils (%) (Auto) 78.6 % Lymphocytes (%) (Auto) 11.4 % Monocytes (%) (Auto) 9.1 % Eosinophils (%) (Auto) 0.5 % Basophils (%) (Auto) 0.4 % Neutrophils # (Auto) 7.6 TH/MM3 Lymphocytes # (Auto) 1.1 TH/MM3 Monocytes # (Auto) 0.9 TH/MM3 Eosinophils # (Auto) 0.0 TH/MM3 Basophils # (Auto) 0.0 TH/MM3 CBC Comment DIFF FINAL Differential Comment Blood Urea Nitrogen 65 MG/DL Creatinine 1.90 MG/DL Random Glucose 165 MG/DL Total Protein 6.9 GM/DL Albumin 3.0 GM/DL Calcium Level 8.7 MG/DL Alkaline Phosphatase 262 U/L Aspartate Amino Transf (AST/SGOT) 892 U/L Alanine Aminotransferase (ALT/SGPT) 567 U/L Total Bilirubin 1.2 MG/DL Sodium Level 138 MEQ/L Potassium Level 5.8 MEQ/L Chloride Level 101 MEQ/L Carbon Dioxide Level 26.9 MEQ/L Anion Gap 10 MEQ/L Estimat Glomerular Filtration Rate 37 ML/MIN B-Type Natriuretic Peptide 499 PG/ML Urine Color YELLOW Urine Turbidity CLEAR Urine pH 5.5 Urine Specific [place] 1.015 Urine Protein 30 mg/dL Urine Glucose (UA) 1000 mg/dL Urine Ketones NEG mg/dL Urine Occult Blood NEG Urine Nitrite NEG Urine Bilirubin NEG Urine Urobilinogen 4.0 MG/DL Urine Leukocyte Esterase NEG Urine RBC 1 /hpf Urine WBC 4 /hpf Urine Squamous Epithelial Cells <1 /hpf Urine Bacteria RARE /hpf Urine Hyaline Casts 32 /lpf Urine Mucus FEW /lpf Microscopic Urinalysis Comment CULT NOT INDICATED MDM Medical Decision Making Medical Screen Exam Complete: Yes Emergency Medical Condition: Yes Interpretation(s) LABS: CBC remarkable for hemoglobin of 7.4 CMP with elevated liver enzymes, BNP 499 UA unremarkable Chest x-ray: Negative Differential Diagnosis Anemia or weakness, renal insufficiency, fluid overload, adverse effect of opiates, other Narrative Course Medical decision making 56 year-old woman status post bypass [address] Reid. We'll comorbidities. Worsening mild anemia worsening moderate anemia, on iron. No active bleeding. He is on Xarelto. Here with confusion. He also appears overloaded with Rales in the posterior lung staley and some edema. History of Lasix. We'll hold his opiates. I spoke with Dr. Reid, will admit the patient to medicine, continue consider echo, repeat assessment. Diagnosis Primary Impression: Confusion Additional Impression: Volume overload Garett Perry MD Apr 27, 2017 14:03
[2017-04-27] MEDS ORDERED: MAGNESIUM HYDROXIDE SUSP 30 ML CUP PO PRN (14:30)
[2017-04-27] MEDS ORDERED: SENNOSIDES 8.6 MG TAB PO PRN (14:30)
[2017-04-27] MEDS ORDERED: BISACODYL 10 MG SUPP RECTAL PRN (14:30)
[2017-04-27] MEDS ORDERED: SODIUM CHLORIDE 0.9% FLUSH 10 ML FLUSH IV FLUSH PRN (14:30)
[2017-04-27] MEDS ORDERED: ACETAMINOPHEN 325 MG TAB PO PRN (14:30)
[2017-04-27] MEDS ORDERED: NALOXONE HCL 0.4 MG/ML AMP IV PRN ×2 (14:30)
[2017-04-27] MEDS ORDERED: ONDANSETRON HCL 4 MG/2 ML VIAL IVP PRN (14:30)
[2017-04-27] MEDS ORDERED: LACTULOSE SYRUP 20 GM/30 ML CUP PO PRN (14:30)
[2017-04-27 15:15] VITALS: BP 128/68; PULSE 78; RESP 18; O2SAT 96
[2017-04-27] MEDS ORDERED: PILL SPLITTER OTHER PRN (15:45)
[2017-04-27 16:00] VITALS: BP 150/70; PULSE 94; RESP 19; TEMP 96.3; O2SAT 99
[2017-04-27] MEDS ORDERED: DEXTROSE 50% IN WATER 50 ML VIAL(D50) IV PUSH PRN (16:00)
[2017-04-27] MEDS ORDERED: SODIUM CHLOR 0.9% 1000 ML INJ 1,000 ML IV SCH (16:00)
[2017-04-27] MEDS: INSULIN NovoLIN REGULAR SUPPLEMENTAL SCALE SQ SCH ×2 (16:00→20:30)
[2017-04-27] MEDS ORDERED: GLUCAGON 1 MG/ML VIAL OTHER PRN (16:00)
--- NOTE | 2017-04-27 16:24 | HHI.HP ---
[facility] Ad[facility] Diagnosis volume overload, confusion, elevated liver enzymes Diagnoses: Chief Complaint: Low oxygen saturation Travel History International Travel<30 Days: No Contact w/Intl Traveler <30 Da: No Traveled to Known Affected Are: No History of Present Illness Written by Morris Joshi PA-C, acting as scribe for Dr. Wilfrid Leavitt on 04/27/17 at 15:31. Mr. Julio is 56 yo, with history of 3 vessel CABG (performed 04/18/17 ), Coronary artery disease, Anxiety, DM II, Hypertension, hyperlipidemia, and Bilateral Pulmonary emboli (September 2016). Preliminary Pulmonary function test results performed on on 04/14 indicated the presence of mild to moderate obstructive disease and moderate restrictive disease. Mr. Julio underwent his CABG at [facility] and was discharged on 04/22/17 to [facility] for rehabilitation services. On the evening of 04/26/17 he suffered a fall in which his head struck a door and then the floor. His laceration was above his left eye was significant enough for him to be transported to [facility] for suturing. He was returned to [facility]. On the morning of 04/27/17 Mr. Julio was reported to be confused, with oxygen saturation reported to be in the 80's. He was returned to [facility] and was noted to be confused and hypoxic. He was placed on oxygen by nasal cannula. Labs drawn indicated elevated liver enzymes (AST 892, ALT 562, Alk Phos 262) BNP 499, Blood glucose 169 and urine glucose 1000. Chest xray was negative for pneumatothorax or consolidation. At time of interview, Mr. Julio reported being confused, having shortness of air, chest pain (from my recent heart surgery), generalized weakness and irritability. He denied fever, nausea, vomiting, diarrhea, productive cough, bloody urine or stool. A to point ROS was conducted and, except as noted above, was negative. Mr. Julio is being admitted for further management and evaluation. 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 eye surgery Orthopedic surgery. Reported Medications Reported Meds & Active Scripts Active Iron (Ferrous Sulfate) 325 Mg Cap 325 Mg PO BIDPC Lisinopril 2.5 Mg Tab 2.5 Mg PO DAILY hold for SBP<100 Magnesium Oxide 400 Mg Tab 400 Mg PO BID 5 Days Potassium Chloride ER (Potassium Chloride) 20 Meq Tab 20 Meq PO DAILY 7 Days Lasix (Furosemide) 40 Mg Tab 40 Mg PO DAILY 7 Days Oxycodone (Oxycodone HCl) 10 Mg Tab 10 Mg PO Q6H PRN Thera M Plus (Multivitamins/Minerals Therapeutic) 1 Tab 1 Tab PO DAILY MDD one tab Symbicort Inh (Budesonide/Formoterol Fumarate) 160-4.5 Mcg/Act Aero 1 Puff INH Q12HR Metoprolol Tartrate 25 Mg Tab 12.5 Mg PO BID Ferrous Sulfate 325 Mg (65 Mg Iron) Tablet 325 Mg PO BIDPC Fludrocortisone (Fludrocortisone Acetate) 0.1 Mg Tab 0.1 Mg PO DAILY Rollator Ultra-Light (Device) 1 Mis Mis 1 Ea .ROUTE DIRECTED Reported Effexor (Venlafaxine HCl) 50 Mg Tab 50 Mg PO Q12H Glucose (Dextrose) 15 Gm/60 Ml Liquid 12 Gm PO B-12 (Cyanocobalamin) 2,000 Mcg Tab 2,000 Mcg PO DAILY Duoneb (Ipratropium-Albuterol Neb) 0.5-2.5 Mg/3 Ml Neb 1 Nebule INH Q8HR NEB PRN Lyrica (Pregabalin) 75 Mg Cap 75 Mg PO BID Protonix (Pantoprazole Sodium) 40 Mg Tab 40 Mg PO DAILY Olanzapine 10 Mg Tab 10 Mg PO HS Lipitor (Atorvastatin Calcium) 20 Mg Tab 20 Mg PO HS Aspirin 81 Mg Chew 81 Mg CHEW DAILY Lantus Inj (Insulin Glargine) 1,000 Unit/10 Ml Vial 12 Units SQ DAILY Metformin (Metformin HCl) 1,000 Mg Tab 1,000 Mg PO BIDPC With meals Allergies: Coded Allergies: morphine (Unverified Allergy, Mild, 04/26/17) Active Ordered Medications Current Medications Medications (Trade) Dose Ordered Sig/Dario Route Start Time Stop Time Status Last Admin (Aspirin Chew) 81 mg DAILY CHEW 04/28/17 09:00 UNV (Lipitor) 20 mg HS PO 04/27/17 21:00 UNV (Ferrous Sulfate) 325 mg BIDPC PO 04/27/17 18:00 UNV (Florinef) 0.1 mg DAILY PO 04/28/17 09:00 UNV (Mag-Ox) 400 mg BID PO 04/27/17 21:00 UNV (Lopressor) 12.5 mg BID PO 04/27/17 21:00 UNV (ZyPREXA) 10 mg HS PO 04/27/17 21:00 UNV (Lyrica) 75 mg BID PO 04/27/17 21:00 UNV (Effexor) 50 mg Q12H PO 04/27/17 14:30 UNV Non-Formulary Medication 2.5 mg DAILY PO 04/28/17 09:00 UNV (NS Flush) 2 ml UNSCH PRN IV FLUSH 04/27/17 14:30 UNV (NS Flush) 2 ml BID IV FLUSH 04/27/17 21:00 UNV (Narcan Inj) 0.4 mg UNSCH PRN IV 04/27/17 14:30 UNV (Jasmyne-Colace) 1 tab BID PO 04/27/17 21:00 UNV (Milk Of Magnesia Liq) 30 ml Q12H PRN PO 04/27/17 14:30 UNV (Senokot) 17.2 mg Q12H PRN PO 04/27/17 14:30 UNV (Dulcolax Supp) 10 mg DAILY PRN RECTAL 04/27/17 14:30 UNV (Lactulose Liq) 30 ml DAILY PRN PO 04/27/17 14:30 UNV (Tylenol) 650 mg Q4H PRN PO 04/27/17 14:30 UNV (Zofran Inj) 4 mg Q6H PRN IVP 04/27/17 14:30 UNV (Narcan Inj) 0.4 mg UNSCH PRN IV 04/27/17 14:30 UNV (Duoneb Neb) 1 ampule Q4HR NEB NEB 04/27/17 16:00 UNV (Mucinex Er) 600 mg BID PO 04/27/17 21:00 UNV (NovoLIN R SUPPLEMENTAL SCALE) 1 ACHS SLIDING SCALE SQ 04/27/17 16:00 UNV Sodium Chloride 1,000 ml @ 100 mls/hr Q10H IV 04/27/17 15:00 UNV Family History Maternal uncle had diabetes. Both parents are living and reported to be in good health. Brother recently diagnosed with prostate cancer. Social History Nicotine use: smoked 1 ppd x 40 years. Pt reported stopping smoking in 2010. Alcohol use: Pt reported having "a few beers a day for 40 years." Illicit/Recreational drugs: denied Physical Exam Vital Signs Vital Signs Date Time Temp Pulse Resp B/P (MAP) Pulse Ox O2 Delivery O2 Flow Rate FiO2 04/27/17 15:24 04/27/17 15:15 78 18 128/68 (88) 96 Nasal Cannula 4.00 04/27/17 11:30 78 18 88 Room Air 04/27/17 11:15 98.4 77 18 111/62 (78) 88 Physical Exam GENERAL: This is a well-nourished, well-developed patient, in no apparent distress. SKIN: No rashes, ecchymoses or lesions. Cool and dry. Bandage noted behind left knee site of vein harvest. Surgical incision noted mid chest. HEAD: Atraumatic. Normocephalic. No temporal or scalp tenderness. EYES: Pupils equal round and reactive. Extraocular motions intact. No scleral icterus. No injection or drainage. left Eyebrow with stitches in place. ENT: Nose without bleeding or purulent drainage. Airway patent. NECK: Trachea midline. No lymphadenopathy. Supple and nontender. CARDIOVASCULAR: Regular rate and rhythm without murmurs, gallops, or rubs. RESPIRATORY: Clear to auscultation. Breath sounds equal bilaterally but diminished. No wheezes, rales, or rhonchi. GASTROINTESTINAL: Abdomen soft, non-tender, nondistended. No hepato-splenomegaly , or guarding. MUSCULOSKELETAL: Extremities without clubbing, cyanosis, or edema. No joint tenderness, effusion, or edema noted. NEUROLOGICAL: Awake and alert for much of the session. He did evidence several in which he appeared to be going to sleep. Cranial nerves II through XII intact. Motor and sensory grossly within normal limits. Five out of 5 muscle strength in all muscle groups. Speech was clear and fluent. PSYCHIATRIC: Some irritability noted during interview. Pt was aware of the events and apologized. He did not evidence overt signs of anxiety or depression. Laboratory Laboratory Tests Test 04/27/17 11:32 04/27/17 11:50 White Blood Count 9.6 Red Blood Count 2.55 Hemoglobin 7.4 Hematocrit 23.3 Mean Corpuscular Volume 91.4 Mean Corpuscular Hemoglobin 29.2 Mean Corpuscular Hemoglobin Concent 31.9 Red Cell Distribution Width 14.0 Platelet Count 272 Mean Platelet Volume 8.4 Neutrophils (%) (Auto) 78.6 Lymphocytes (%) (Auto) 11.4 Monocytes (%) (Auto) 9.1 Eosinophils (%) (Auto) 0.5 Basophils (%) (Auto) 0.4 Neutrophils # (Auto) 7.6 Lymphocytes # (Auto) 1.1 Monocytes # (Auto) 0.9 Eosinophils # (Auto) 0.0 Basophils # (Auto) 0.0 CBC Comment DIFF FINAL Differential Comment Blood Urea Nitrogen 65 Creatinine 1.90 Random Glucose 165 Total Protein 6.9 Albumin 3.0 Calcium Level 8.7 Alkaline Phosphatase 262 Aspartate Amino Transf (AST/SGOT) 892 Alanine Aminotransferase (ALT/SGPT) 567 Total Bilirubin 1.2 Sodium Level 138 Potassium Level 5.8 Chloride Level 101 Carbon Dioxide Level 26.9 Anion Gap 10 Estimat Glomerular Filtration Rate 37 B-Type Natriuretic Peptide 499 Urine Color YELLOW Urine Turbidity CLEAR Urine pH 5.5 Urine Specific [place] 1.015 Urine Protein 30 Urine Glucose (UA) 1000 Urine Ketones NEG Urine Occult Blood NEG Urine Nitrite NEG Urine Bilirubin NEG Urine Urobilinogen 4.0 Urine Leukocyte Esterase NEG Urine RBC 1 Urine WBC 4 Urine Squamous Epithelial Cells <1 Urine Bacteria RARE Urine Hyaline Casts 32 Urine Mucus FEW Microscopic Urinalysis Comment CULT NOT INDICATED Result Diagram: 04/27/17 1132 04/27/17 1132 Imaging Last Impressions Chest X-Ray 04/27/17 0000 Signed Impressions: Service Date/Time: Saturday, April 27, 2017 11:44 - CONCLUSION: No evidence of pneumothorax or airspace consolidation. MD Sherita Preciado VTE Risk Assessment Sherita VTE Risk Assessment: Mod/High Risk (score >= 2) VTE Pharm Contraindication: Pt underwent CABG on 04/18/17. Caprini Risk Assessment Model Point Value = 1 Point Value = 2 Point Value = 3 Point Value = 5 Age 41-60 Minor surgery BMI > 25 kg/m2 Swollen legs Varicose veins or History of unexplained or recurrent spontaneous Oral contraceptives or hormone replacement Sepsis (< 1 month) Serious lung disease, including pneumonia (< 1 month) Abnormal pulmonary function Acute myocardial infarction Congestive heart failure (< 1 month) History of inflammatory bowel disease Medical patient at bed rest Age 61-74 Arthroscopic surgery Major open surgery (> 45 min) Laparoscopic surgery (> 45 min) Malignancy Confined to bed (> 72 hours) Immobilizing plaster cast Central venous access Age >= 75 History of VTE Family history of VTE Factor V Leiden Prothrombin [id number] Lupus anticoagulant Anticardiolipin antibodies Elevated serum homocysteine Heparin-induced thrombocytopenia Other congenital or acquired thrombophilia Stroke (< 1 month) Elective arthroplasty Hip, pelvis, or leg fracture Acute spinal cord injury (< 1 month) Prophylaxis Regimen Total Risk Factor Score Risk Level Prophylaxis Regimen 0-1 Low Early ambulation 2 Moderate Order ONE of the following: *Sequential Compression Device (SCD) *Heparin 5000 units SQ BID 3-4 Higher Order ONE of the following medications: *Heparin 5000 units SQ TID *Enoxaparin/Lovenox 40 mg SQ daily (WT < 150 kg, CrCl > 30 mL/min) *Enoxaparin/Lovenox 30 mg SQ daily (WT < 150 kg, CrCl > 10-29 mL/min) *Enoxaparin/Lovenox 30 mg SQ BID (WT < 150 kg, CrCl > 30 mL/min) AND/OR *Sequential Compression Device (SCD) 5 or more Highest Order ONE of the following medications: *Heparin 5000 units SQ TID (Preferred with Epidurals) *Enoxaparin/Lovenox 40 mg SQ daily (WT < 150 kg, CrCl > 30 mL/min) *Enoxaparin/Lovenox 30 mg SQ daily (WT < 150 kg, CrCl > 10-29 mL/min) *Enoxaparin/Lovenox 30 mg SQ BID (WT < 150 kg, CrCl > 30 mL/min) AND *Sequential Compression Device (SCD) Assessment and Plan Assessment and Plan Mr. Julio is 56 yo, with history of 3 vessel CABG (performed 04/18/17 ), Coronary artery disease, Anxiety, Acid Reflux, DM II, Hypertension, hyperlipidemia, NSTEMI and Bilateral Pulmonary emboli (September 2016). Preliminary Pulmonary function test results performed on on 04/14 indicated the presence of mild to moderate obstructive disease and moderate restrictive disease. Mr. Julio underwent his CABG at [facility] and was discharged on 04/22/17 to [facility] for rehabilitation services. On the evening of 04/26/17 he suffered a fall in which his head struck a door and then the floor. His laceration was above his left eye was significant enough for him to be transported to [facility] for suturing. He was returned to [facility]. On the morning of 04/27/17 Mr. Julio was reported to be confused, with oxygen saturation reported to be in the 80's. He was returned to [facility] and was noted to be confused and hypoxic. He was placed on oxygen by nasal cannula. Labs drawn indicated elevated liver enzymes (AST 892, ALT 562, Alk Phos 262) BNP 499, Blood glucose 169 and urine glucose 1000. Chest xray was negative for pneumothorax or consolidation. Encephalopathy probable related to Narcotic abuse, and dependency, not found signs of infection, will follow closely Acute Renal Injury initially seen in ER and given IV lasix but he has new Acute kidney injury and elevated liver enzymes will follow. Elevated BNP Questionable Volume overload given IV Lasix in ER. S/p CABG surgery Hypoxia Confusion -Admit for observation -serial troponin -telemetry. -oxygen -labs in am -pain management PRN -Physical therapy consult Diabetes -ADA 1800 calorie diet -Fingersticks q ac and hs. -sliding scale insulin Obstructive/restrictive airway disease -Duonebs as needed -Guaifenesin ER 600 mg BID CAD status post CABG Improving condition Diet:as above DVT prophylaxis: -SCD's -Out of bed as tolerated, ambulation -SCD's. -Physical Therapy. The exam, history, and the medical decision-making described in the above note were completed with the assistance of the mid-level provider. I reviewed and agree with the findings presented. I attest that I had a [id number] encounter with the patient on the same day, and personally performed and documented my assessment and findings in the medical record. Discussed Condition With Pt and ED staff Morris Joshi Jr. Apr 27, 2017 16:23 Tim Grubbs MD Apr 27, 2017 17:38
[2017-04-27] MEDS ORDERED: SODIUM POLYSTYRENE SULFONATE SUSP 15 GM/60 ML CUP PO ONE (17:45)
[2017-04-27] MEDS: FERROUS SULFATE 325 MG (65 MG ELEMENTAL IRON) TAB PO SCH (18:03)
[2017-04-27] MEDS: VENLAFAXINE HCL 25 MG TAB PO SCH (18:03)
[2017-04-27] MEDS: SODIUM CHLOR 0.45% 1000 ML INJ 1,000 ML IV SCH (18:07)
[2017-04-27 18:54] LABS: ANION GAP 9 MEQ/L (5-15); AST (GOT) 897 U/L (15-37); BICARBONATE 26.5 MEQ/L (21.0-32.0); BLOOD UREA NITROGEN 62 MG/DL (7-18); CHLORIDE 103 MEQ/L (98-107); GLOMERULAR FILTRATION RATE 44 ML/MIN (>89); SODIUM (NA) 138 MEQ/L (136-145)
[2017-04-27 18:55] LABS: ALT (GPT) 597 U/L (12-78)
[2017-04-27 18:57] LABS: ALKALINE PHOSPHATASE 246 U/L (45-117); TOTAL BILIRUBIN ADULT 0.8 MG/DL (0.2-1.0)
[2017-04-27 19:25] VITALS: BP 116/62; PULSE 76; RESP 18; TEMP 96.8; O2SAT 98
[2017-04-27] MEDS: OLANZapine 10 MG TAB PO SCH (20:31)
[2017-04-27] MEDS: DOCUSATE SODIUM 50 MG/SENNA 8.6 MG TAB PO SCH (20:31)
[2017-04-27] MEDS: guaiFENesin E.R. 600 MG TAB PO SCH (20:31)
[2017-04-27] MEDS: PREGABALIN 75 MG CAP PO SCH (20:31)
[2017-04-27] MEDS: ATORVASTATIN 20 MG TAB PO SCH (20:31)
[2017-04-27] MEDS: METOPROLOL TARTRATE 25 MG TAB PO SCH (20:31)
[2017-04-27] MEDS: SODIUM CHLORIDE 0.9% FLUSH 10 ML FLUSH IV FLUSH SCH (20:32)
[2017-04-27] MEDS: RESP: ALBUTEROL 2.5 MG/IPRATROPIUM 0.5 MG NEB (SCH) NEB (21:02)
--- NOTE | 2017-04-27 22:20 | EKG ---
Date Performed: 04/27/2017 Time Performed: 14:35:11 PTAGE: 56 years EKG: Sinus rhythm POSSIBLE LEFT ATRIAL ENLARGEMENT NONSPECIFIC ST & T-WAVE ABNORMALITY BORDERLINE ECG PREVIOUS TRACING : 04/19/2017 03.57 Compared to prior tracing no significant change DOCTOR: Lakshmi Anders Interpretating Date/Time 04/27/2017 22:19:49
[2017-04-27] MEDS: MAGNESIUM OXIDE 400 MG TAB PO SCH (23:33)
[2017-04-28] VITALS (25 sets, daily range): BP systolic 105–164; BP diastolic 56–83; PULSE 65–156; RESP 16–22; TEMP 96.8–98.7; O2SAT 92–98
[2017-04-28] MEDS: RESP: ALBUTEROL 2.5 MG/IPRATROPIUM 0.5 MG NEB (SCH) NEB ×6 (01:04→19:52)
[2017-04-28] MEDS: VENLAFAXINE HCL 25 MG TAB PO SCH ×2 (05:14→17:00)
[2017-04-28] MEDS ORDERED: DILTIAZEM HCL 25 MG/5 ML VIAL IV PUSH ONE (05:15)
[2017-04-28] MEDS: DILTIAZEM INJ 125 MG in SODIUM CHLORIDE 0.9% INJ 100 ML IV PRN (06:04)
[2017-04-28] MEDS: SODIUM CHLOR 0.45% 1000 ML INJ 1,000 ML IV SCH (06:10)
[2017-04-28] MEDS: INSULIN NovoLIN REGULAR SUPPLEMENTAL SCALE SQ SCH ×4 (07:00→20:58)
--- NOTE | 2017-04-28 08:19 | HHI.PR ---
Subjective Remarks This is a pleasant 56 y/o Male with status post CABG on 04/18/17 he has CAD, Anxiety disorder, DM II, Hypertension, Hyperlipidemia Bilateral Pulmonary emboli (September 2016). Preliminary Pulmonary function test results performed on on 04/14 indicated the presence of mild to moderate obstructive disease and moderate restrictive disease. Discharged on 04/22/17 to [facility] for rehabilitation services. On the evening of 04/26/17 he suffered a fall in which his head struck a door and then the floor. His laceration was above his left eye was significant enough for him to be transported to [facility] for suturing. He was returned to [facility]. On the morning of 04/27/17 Mr. Julio was reported to be confused, with oxygen saturation reported to be in the 80's. He was returned to [facility] and was noted to be confused and hypoxic. He was placed on oxygen by nasal cannula. Labs drawn indicated elevated liver enzymes (AST 892, ALT 562, Alk Phos 262) BNP 499, Blood glucose 169 and urine glucose 1000. Chest xray was negative for pneumatothorax or consolidation. 04/28: Patient seen in his bedroom, no nausea, vomit or diarrhea and he is alert and oriented x 3, yesterday after discuss with ER specialist was considered the possibility of CHF he has low BNP, then also had some increased Cardiac enzymes both results may be related to his recent Cardiac Surgery, knowing that he has acute renal injury was given some IV fluids, after discuss with nurse late in the afternoon was considered to perform a new BMP and BNP, his liver function was not improving yesterday afternoon, the patient is asymptomatic, initially given in ER Lasix IV then started on IV fluids thinking that the patient may need some IV fluids, at this time I am waiting for his new laboratory for the morning, he is been sleeping, Consulted his Primary Cardiothoracic Surgeon and Cardiology for follow up purposes but I think the patient has a good Post Operative course. His BNP was increasing yesterday afternoon so his IV fluids were held. at this time stable no complaint, his lungs are clean. Objective Vital Signs Date Time Temp Pulse Resp B/P (MAP) Pulse Ox O2 Delivery O2 Flow Rate FiO2 04/28/17 07:51 79 133/68 04/28/17 07:32 127 108/63 04/28/17 06:38 126 16 123/69 (87) 93 8/27/17 06:29 122 04/28/17 06:14 132 16 119/56 (77) 92 04/28/17 06:10 130 132/72 04/28/17 06:04 137 124/74 04/28/17 05:41 98.7 156 18 144/83 (103) 93 04/28/17 04:00 96.8 82 20 164/71 (102) 92 04/28/17 01:04 98 Nasal Cannula 1.50 04/28/17 00:10 98.0 74 18 122/62 (82) 94 04/27/17 19:25 96.8 76 18 116/62 (80) 98 04/27/17 16:00 96.3 94 19 150/70 (96) 99 04/27/17 15:24 04/27/17 15:15 78 18 128/68 (88) 96 Nasal Cannula 4.00 04/27/17 11:30 78 18 88 Room Air 04/27/17 11:15 98.4 77 18 111/62 (78) 88 I/O 04/27/17 04/27/17 04/27/17 04/28/17 04/28/17 04/28/17 07:00 15:00 23:00 07:00 15:00 23:00 Intake Total 120 ml Output Total 600 ml Balance -600 ml 120 ml Intake Oral 120 ml Output Urine Total 600 ml # Voids 1 2 # Bowel Movements 1 Result Diagram: 04/27/17 1132 04/27/17 1717 Imaging Last Impressions Chest X-Ray 04/27/17 0000 Signed Impressions: Service Date/Time: Thursday, April 27, 2017 11:44 - CONCLUSION: No evidence of pneumothorax or airspace consolidation. Chloe Walsh MD Procedures None Other Results Laboratory Tests Test 04/27/17 11:32 04/27/17 11:50 04/27/17 17:17 04/27/17 18:45 White Blood Count 9.6 TH/MM3 Red Blood Count 2.55 MIL/MM3 Hemoglobin 7.4 GM/DL Hematocrit 23.3 % Mean Corpuscular Volume 91.4 FL Mean Corpuscular Hemoglobin 29.2 PG Mean Corpuscular Hemoglobin Concent 31.9 % Red Cell Distribution Width 14.0 % Platelet Count 272 TH/MM3 Mean Platelet Volume 8.4 FL Neutrophils (%) (Auto) 78.6 % Lymphocytes (%) (Auto) 11.4 % Monocytes (%) (Auto) 9.1 % Eosinophils (%) (Auto) 0.5 % Basophils (%) (Auto) 0.4 % Neutrophils # (Auto) 7.6 TH/MM3 Lymphocytes # (Auto) 1.1 TH/MM3 Monocytes # (Auto) 0.9 TH/MM3 Eosinophils # (Auto) 0.0 TH/MM3 Basophils # (Auto) 0.0 TH/MM3 CBC Comment DIFF FINAL Differential Comment Urine Color YELLOW Urine Turbidity CLEAR Urine pH 5.5 Urine Specific [place] 1.015 Urine Protein 30 mg/dL Urine Glucose (UA) 1000 mg/dL Urine Ketones NEG mg/dL Urine Occult Blood NEG Urine Nitrite NEG Urine Bilirubin NEG Urine Urobilinogen 4.0 MG/DL Urine Leukocyte Esterase NEG Urine RBC 1 /hpf Urine WBC 4 /hpf Urine Squamous Epithelial Cells <1 /hpf Urine Bacteria RARE /hpf Urine Hyaline Casts 32 /lpf Urine Mucus FEW /lpf Microscopic Urinalysis Comment CULT NOT INDICATED Blood Urea Nitrogen 62 MG/DL Creatinine 1.63 MG/DL Random Glucose 117 MG/DL Total Protein 6.5 GM/DL Albumin 3.0 GM/DL Calcium Level 8.4 MG/DL Alkaline Phosphatase 246 U/L Aspartate Amino Transf (AST/SGOT) 897 U/L Alanine Aminotransferase (ALT/SGPT) 597 U/L Total Bilirubin 0.8 MG/DL Sodium Level 138 MEQ/L Potassium Level 5.0 MEQ/L Chloride Level 103 MEQ/L Carbon Dioxide Level 26.5 MEQ/L Anion Gap 9 MEQ/L Estimat Glomerular Filtration Rate 44 ML/MIN B-Type Natriuretic Peptide 620 PG/ML Test 04/27/17 23:14 Total Creatine Kinase 161 U/L Troponin I 2.77 NG/ML Objective Remarks GENERAL: This is a well-nourished, well-developed patient, in no apparent distress. SKIN: No rashes, ecchymoses or lesions. Cool and dry. Bandage noted behind left knee site of vein harvest. Surgical incision noted mid chest. HEAD: Atraumatic. Normocephalic. No temporal or scalp tenderness. EYES: Pupils equal round and reactive. Extraocular motions intact. No scleral icterus. No injection or drainage. left Eyebrow with stitches in place. ENT: Nose without bleeding or purulent drainage. Airway patent. NECK: Trachea midline. No lymphadenopathy. Supple and nontender. CARDIOVASCULAR: Regular rate and rhythm without murmurs, gallops, or rubs. RESPIRATORY: Clear to auscultation. Breath sounds equal bilaterally but diminished. No wheezes, rales, or rhonchi. GASTROINTESTINAL: Abdomen soft, non-tender, nondistended. No hepato-splenomegaly , or guarding. MUSCULOSKELETAL: Extremities without clubbing, cyanosis, or edema. No joint tenderness, effusion, or edema noted. NEUROLOGICAL: Awake and alert for much of the session. He did evidence several in which he appeared to be going to sleep. Cranial nerves II through XII intact. Motor and sensory grossly within normal limits. Five out of 5 muscle strength in all muscle groups. Speech was clear and fluent. PSYCHIATRIC: Some irritability noted during interview. Pt was aware of the events and apologized. He did not evidence overt signs of anxiety or depression. Medications and IVs Current Medications Medications (Trade) Dose Ordered Sig/Dario Route Start Time Stop Time Status Last Admin (Aspirin Chew) 81 mg DAILY CHEW 04/28/17 09:00 (Lipitor) 20 mg HS PO 04/27/17 21:00 04/27/17 20:31 (Ferrous Sulfate) 325 mg BIDPC PO 04/27/17 18:00 04/27/17 18:03 (Florinef) 0.1 mg DAILY PO 04/28/17 09:00 (Mag-Ox) 400 mg BID@1100,2300 PO 04/27/17 23:00 04/27/17 23:33 (Lopressor) 12.5 mg BID PO 04/27/17 21:00 04/27/17 20:31 (ZyPREXA) 10 mg HS PO 04/27/17 21:00 04/27/17 20:31 (Lyrica) 75 mg BID PO 04/27/17 21:00 04/27/17 20:31 (Effexor) 50 mg Q12H PO 04/27/17 17:00 04/28/17 05:14 (Prinivil) 2.5 mg DAILY PO 04/28/17 09:00 Future Hold (NS Flush) 2 ml UNSCH PRN IV FLUSH 04/27/17 14:30 (NS Flush) 2 ml BID IV FLUSH 04/27/17 21:00 04/27/17 20:32 (Jasmyne-Colace) 1 tab BID PO 04/27/17 21:00 04/27/17 20:31 (Milk Of Magnesia Liq) 30 ml Q12H PRN PO 04/27/17 14:30 (Senokot) 17.2 mg Q12H PRN PO 04/27/17 14:30 (Dulcolax Supp) 10 mg DAILY PRN RECTAL 04/27/17 14:30 (Lactulose Liq) 30 ml DAILY PRN PO 04/27/17 14:30 (Tylenol) 650 mg Q4H PRN PO 04/27/17 14:30 (Zofran Inj) 4 mg Q6H PRN IVP 04/27/17 14:30 (Narcan Inj) 0.4 mg UNSCH PRN IV 04/27/17 14:30 (Duoneb Neb) 1 ampule Q4HR NEB NEB 04/27/17 16:00 04/28/17 07:42 (Mucinex Er) 600 mg BID PO 04/27/17 21:00 04/27/17 20:31 (NovoLIN R SUPPLEMENTAL SCALE) 1 ACHS SLIDING SCALE SQ 04/27/17 16:00 04/28/17 07:00 (Pill Splitter) 1 ea UNSCH PRN OTHER 04/27/17 15:45 (D50w (Vial) Inj) 50 ml UNSCH PRN IV PUSH 04/27/17 16:00 (Glucagon Inj) 1 mg UNSCH PRN OTHER 04/27/17 16:00 Sodium Chloride 1,000 ml @ 83 mls/hr Q12H3M IV 04/27/17 17:45 04/28/17 06:10 Diltiazem HCl 125 mg/Sodium Chloride 125 ml @ 5 mls/hr TITRATE PRN IV 04/28/17 05:15 04/28/17 06:04 A/P Assessment and Plan Mr. Julio is 56 yo, with history of 3 vessel CABG (performed 04/18/17 ), Coronary artery disease, Anxiety, Acid Reflux, DM II, Hypertension, hyperlipidemia, NSTEMI and Bilateral Pulmonary emboli (September 2016). Preliminary Pulmonary function test results performed on on 04/14 indicated the presence of mild to moderate obstructive disease and moderate restrictive disease. Mr. Julio underwent his CABG at [facility] and was discharged on 04/22/17 to [facility] for rehabilitation services. On the evening of 04/26/17 he suffered a fall in which his head struck a door and then the floor. His laceration was above his left eye was significant enough for him to be transported to [facility] for suturing. He was returned to [facility]. On the morning of 04/27/17 Mr. Julio was reported to be confused, with oxygen saturation reported to be in the 80's. He was returned to [facility] and was noted to be confused and hypoxic. He was placed on oxygen by nasal cannula. Labs drawn indicated elevated liver enzymes (AST 892, ALT 562, Alk Phos 262) BNP 499, Blood glucose 169 and urine glucose 1000. Chest xray was negative for pneumothorax or consolidation. 1. Encephalopathy probable related to Narcotic abuse, and dependency, not found signs of infection, Improved. asked for Ammonia level at this time 2. Acute Renal Injury initially seen in ER and given IV Lasix but he has new Acute kidney injury and elevated liver enzymes will follow. received some IV fluids and increased his BNP will follow with new laboratory today not yet in EMR. 3. Elevated BNP, initially I questioned the Volume Overload but then his BNP was increasing his IV fluids were held 4. CAD status post CABG continue Oxygen, camouflage specialist and Cardiothoracic surgery consulted. 5. CHF probable exacerbation EF 35-40%. his last Echocardiogram was not good quality due to poor visualization but this decision will be taken by camouflage specialist if another study is needed 6. DM II continue sliding scale, ADA diet, held Metformin 7. Obstructive/restrictive airway disease -Duonebs as needed -Guaifenesin ER 600 mg BID 8. Hypertension on hold Lisinopril and diuretics at this time due to MIRNA 9. Hyperkalemia Improved he receive Kayexalate. DVT prophylaxis: -SCD's -Out of bed as tolerated, ambulation -SCD's. -Physical Therapy. Discharge Planning Once cleared by specialists. Tim Grubbs MD Apr 28, 2017 08:19
[2017-04-28] MEDS: ASPIRIN 81 MG CHEW TAB CHEW SCH (08:49)
[2017-04-28] MEDS: PREGABALIN 75 MG CAP PO SCH ×2 (08:50→20:39)
[2017-04-28] MEDS: METOPROLOL TARTRATE 25 MG TAB PO SCH ×2 (08:50→20:40)
[2017-04-28] MEDS: DOCUSATE SODIUM 50 MG/SENNA 8.6 MG TAB PO SCH ×2 (08:51→20:45)
[2017-04-28] MEDS: guaiFENesin E.R. 600 MG TAB PO SCH ×2 (08:52→20:40)
[2017-04-28] MEDS: LISINOPRIL 5 MG TAB PO SCH (08:52)
[2017-04-28] MEDS: FERROUS SULFATE 325 MG (65 MG ELEMENTAL IRON) TAB PO SCH ×2 (08:52→17:00)
[2017-04-28] MEDS: SODIUM CHLORIDE 0.9% FLUSH 10 ML FLUSH IV FLUSH SCH ×2 (08:54→20:41)
[2017-04-28] MEDS: HEPARIN SODIUM - SQ 10,000 UNITS/ML VIAL SQ SCH ×2 (09:00→20:42)
[2017-04-28] MEDS ORDERED: PANTOPRAZOLE SOD 40 MG DELAYED RELEASE TAB PO SCH (09:00)
--- NOTE | 2017-04-28 09:49 | PD.CONS ---
HPI Consult Requested By Primary Care Physician [facility] History of Present Illness 56 y/o M with known CAD 3 vessel CAD s/p CABG x3 by Dr. Falcon on 04/18/17, LV dysfunction, DM II, Hypertension, hyperlipidemia, and pulmonary emboli (September 2016), COPD on home O2 that presented to the ER via EMS from Rehab wit confusion and hypoxic. According to records he was discharged on 04/22/17 after CABG to [facility] for rehabilitation services. On the evening of 04/26/17 he suffered a fall in which his head struck a door and then the floor. His laceration was above his left eye was significant enough for him to be transported to [facility] for suturing and was discharge back to Rehab. On the morning of 04/27/17 Mr. Julio was reported to be confused, with oxygen saturation reported to be in the 80's. He was returned to [facility] and was noted to be confused and hypoxic. Chest xray was negative. Cardiology consulted for elevated troponin. Review of Systems Consitutional: DENIES: Fatigue, Fever, Chills, Weight gain, Weight loss Eyes: DENIES: Amaurosis Fug[place], Change in vision HEENT: DENIES: Lightheadedness, Change in hearing Respiratory: COMPLAINS OF: See HPI, DENIES: Cough, Snoring, Shortness of breath , Wheezing, Sputum production Cardiovascular: COMPLAINS OF: See HPI, DENIES: Chest pain, Palpitations, Syncope, Tachycardia Gastrointestinal: DENIES: Nausea, Vomiting, Change in bowel habits, Reflux, Bloody stools, Melena Genitourinary: DENIES: Urinary incontinence, Difficulty voiding Integumentary: DENIES: Rash Neurologic: DENIES: Tingling or numbness, Memory problems, Poor Balance, Stroke symptoms Musculoskeletal: DENIES: Joint pain, Muscle pain, Limited range of motion, Back pain Psychiatric: DENIES: Anxiety, Depression, Sleep disturbances Hematologic: DENIES: Bruising tendencies, Bleeding tendencies Endocrine: DENIES: Weight gain, Weight loss, Thyroid disease Past Family Social History Allergies: Coded Allergies: morphine (Unverified Allergy, Mild, 04/26/17) Past Medical History Anxiety Acid reflux 3 vessel CABG (performed 04/18/17) Coronary artery disease DM II Hypertension Hyperlipidemia Nstemi Mild/moderate obstructive lung disease and moderate restrictive lung disease Bilateral Pulmonary emboli (September 2016) Past Surgical History CABG x3 KERR to LAD, SVG to OM and SVG to PDA Reported Medications Reported Meds & Active Scripts Active Iron (Ferrous Sulfate) 325 Mg Cap 325 Mg PO BIDPC Lisinopril 2.5 Mg Tab 2.5 Mg PO DAILY hold for SBP<100 Magnesium Oxide 400 Mg Tab 400 Mg PO BID 5 Days Potassium Chloride ER (Potassium Chloride) 20 Meq Tab 20 Meq PO DAILY 7 Days Lasix (Furosemide) 40 Mg Tab 40 Mg PO DAILY 7 Days Oxycodone (Oxycodone HCl) 10 Mg Tab 10 Mg PO Q6H PRN Thera M Plus (Multivitamins/Minerals Therapeutic) 1 Tab 1 Tab PO DAILY MDD one tab Symbicort Inh (Budesonide/Formoterol Fumarate) 160-4.5 Mcg/Act Aero 1 Puff INH Q12HR Metoprolol Tartrate 25 Mg Tab 12.5 Mg PO BID Ferrous Sulfate 325 Mg (65 Mg Iron) Tablet 325 Mg PO BIDPC Fludrocortisone (Fludrocortisone Acetate) 0.1 Mg Tab 0.1 Mg PO DAILY Rollator Ultra-Light (Device) 1 Mis Mis 1 Ea .ROUTE DIRECTED Reported Effexor (Venlafaxine HCl) 50 Mg Tab 50 Mg PO Q12H Glucose (Dextrose) 15 Gm/60 Ml Liquid 12 Gm PO B-12 (Cyanocobalamin) 2,000 Mcg Tab 2,000 Mcg PO DAILY Duoneb (Ipratropium-Albuterol Neb) 0.5-2.5 Mg/3 Ml Neb 1 Nebule INH Q8HR NEB PRN Lyrica (Pregabalin) 75 Mg Cap 75 Mg PO BID Protonix (Pantoprazole Sodium) 40 Mg Tab 40 Mg PO DAILY Olanzapine 10 Mg Tab 10 Mg PO HS Lipitor (Atorvastatin Calcium) 20 Mg Tab 20 Mg PO HS Aspirin 81 Mg Chew 81 Mg CHEW DAILY Lantus Inj (Insulin Glargine) 1,000 Unit/10 Ml Vial 12 Units SQ DAILY Metformin (Metformin HCl) 1,000 Mg Tab 1,000 Mg PO BIDPC With meals Active Ordered Medications Current Medications Medications (Trade) Dose Ordered Sig/Dario Route Start Time Stop Time Status Last Admin (Aspirin Chew) 81 mg DAILY CHEW 04/28/17 09:00 04/28/17 08:49 (Lipitor) 20 mg HS PO 04/27/17 21:00 04/27/17 20:31 (Ferrous Sulfate) 325 mg BIDPC PO 04/27/17 18:00 04/28/17 08:52 (Florinef) 0.1 mg DAILY PO 04/28/17 09:00 (Mag-Ox) 400 mg BID@1100,2300 PO 04/27/17 23:00 04/27/17 23:33 (Lopressor) 12.5 mg BID PO 04/27/17 21:00 04/28/17 08:50 (ZyPREXA) 10 mg HS PO 04/27/17 21:00 04/27/17 20:31 (Lyrica) 75 mg BID PO 04/27/17 21:00 04/28/17 08:50 (Effexor) 50 mg Q12H PO 04/27/17 17:00 04/28/17 05:14 (Prinivil) 2.5 mg DAILY PO 04/28/17 09:00 Future Hold (NS Flush) 2 ml UNSCH PRN IV FLUSH 04/27/17 14:30 (NS Flush) 2 ml BID IV FLUSH 04/27/17 21:00 04/28/17 08:54 (Jasmyne-Colace) 1 tab BID PO 04/27/17 21:00 04/28/17 08:51 (Milk Of Magnesia Liq) 30 ml Q12H PRN PO 04/27/17 14:30 (Senokot) 17.2 mg Q12H PRN PO 04/27/17 14:30 (Dulcolax Supp) 10 mg DAILY PRN RECTAL 04/27/17 14:30 (Lactulose Liq) 30 ml DAILY PRN PO 04/27/17 14:30 (Tylenol) 650 mg Q4H PRN PO 04/27/17 14:30 04/28/17 08:52 (Zofran Inj) 4 mg Q6H PRN IVP 04/27/17 14:30 (Narcan Inj) 0.4 mg UNSCH PRN IV 04/27/17 14:30 (Duoneb Neb) 1 ampule Q4HR NEB NEB 04/27/17 16:00 04/28/17 07:42 (Mucinex Er) 600 mg BID PO 04/27/17 21:00 04/28/17 08:52 (NovoLIN R SUPPLEMENTAL SCALE) 1 ACHS SLIDING SCALE SQ 04/27/17 16:00 04/28/17 07:00 (Pill Splitter) 1 ea UNSCH PRN OTHER 04/27/17 15:45 (D50w (Vial) Inj) 50 ml UNSCH PRN IV PUSH 04/27/17 16:00 (Glucagon Inj) 1 mg UNSCH PRN OTHER 04/27/17 16:00 Diltiazem HCl 125 mg/Sodium Chloride 125 ml @ 5 mls/hr TITRATE PRN IV 04/28/17 05:15 04/28/17 06:04 (Heparin Inj) 5,000 units Q12HR SQ 04/28/17 09:00 Physical Exam Vital Signs Vital Signs Date Time Temp Pulse Resp B/P (MAP) Pulse Ox O2 Delivery O2 Flow Rate FiO2 04/28/17 07:51 79 133/68 04/28/17 07:32 127 108/63 04/28/17 07:00 104 04/28/17 06:38 126 16 123/69 (87) 93 04/28/17 06:29 122 04/28/17 06:14 132 16 119/56 (77) 92 04/28/17 06:10 130 132/72 04/28/17 06:04 137 124/74 04/28/17 05:41 98.7 156 18 144/83 (103) 93 04/28/17 04:00 96.8 82 20 164/71 (102) 92 04/28/17 01:04 98 Nasal Cannula 1.50 04/28/17 00:10 98.0 74 18 122/62 (82) 94 04/27/17 19:25 96.8 76 18 116/62 (80) 98 04/27/17 16:00 96.3 94 19 150/70 (96) 99 04/27/17 15:24 04/27/17 15:15 78 18 128/68 (88) 96 Nasal Cannula 4.00 04/27/17 11:30 78 18 88 Room Air 04/27/17 11:15 98.4 77 18 111/62 (78) 88 Physical Exam GENERAL: Well-nourished, well-developed patient. SKIN: Warm and dry. HEAD: Normocephalic. EYES: No scleral icterus. No injection or drainage. NECK: Supple, trachea midline. No JVD or lymphadenopathy. CARDIOVASCULAR: Regular rate and rhythm without murmurs, gallops, or rubs. RESPIRATORY: Breath sounds equal bilaterally. No accessory muscle use. GASTROINTESTINAL: Abdomen soft, non-tender, nondistended. EXTREMITIES: No cyanosis, or edema. NEUROLOGICAL: Awake, alert, and oriented x 3. Non-focal. Laboratory Laboratory Tests Test 04/27/17 11:32 04/27/17 11:50 04/27/17 17:17 04/27/17 18:45 White Blood Count 9.6 Red Blood Count 2.55 Hemoglobin 7.4 Hematocrit 23.3 Mean Corpuscular Volume 91.4 Mean Corpuscular Hemoglobin 29.2 Mean Corpuscular Hemoglobin Concent 31.9 Red Cell Distribution Width 14.0 Platelet Count 272 Mean Platelet Volume 8.4 Neutrophils (%) (Auto) 78.6 Lymphocytes (%) (Auto) 11.4 Monocytes (%) (Auto) 9.1 Eosinophils (%) (Auto) 0.5 Basophils (%) (Auto) 0.4 Neutrophils # (Auto) 7.6 Lymphocytes # (Auto) 1.1 Monocytes # (Auto) 0.9 Eosinophils # (Auto) 0.0 Basophils # (Auto) 0.0 CBC Comment DIFF FINAL Differential Comment Blood Urea Nitrogen 65 62 Creatinine 1.90 1.63 Random Glucose 165 117 Total Protein 6.9 6.5 Albumin 3.0 3.0 Calcium Level 8.7 8.4 Alkaline Phosphatase 262 246 Aspartate Amino Transf (AST/SGOT) 892 897 Alanine Aminotransferase (ALT/SGPT) 567 597 Total Bilirubin 1.2 0.8 Sodium Level 138 138 Potassium Level 5.8 5.0 Chloride Level 101 103 Carbon Dioxide Level 26.9 26.5 Anion Gap 10 9 Estimat Glomerular Filtration Rate 37 44 B-Type Natriuretic Peptide 499 620 Urine Color YELLOW Urine Turbidity CLEAR Urine pH 5.5 Urine Specific [place] 1.015 Urine Protein 30 Urine Glucose (UA) 1000 Urine Ketones NEG Urine Occult Blood NEG Urine Nitrite NEG Urine Bilirubin NEG Urine Urobilinogen 4.0 Urine Leukocyte Esterase NEG Urine RBC 1 Urine WBC 4 Urine Squamous Epithelial Cells <1 Urine Bacteria RARE Urine Hyaline Casts 32 Urine Mucus FEW Microscopic Urinalysis Comment CULT NOT INDICATED Total Creatine Kinase 188 Troponin I 3.60 Test 04/27/17 23:14 Total Creatine Kinase 161 Troponin I 2.77 Result Diagram: 8/26/17 1132 04/27/17 1717 Imaging Last Impressions Chest X-Ray 04/27/17 0000 Signed Impressions: Service Date/Time: Thursday, April 27, 2017 11:44 - CONCLUSION: No evidence of pneumothorax or airspace consolidation. Chloe Walsh MD Assessment and Plan Problem List: (1) Troponin level elevated ICD Codes: R79.89 - Other specified abnormal findings of blood chemistry Status: Acute Plan: Troponin elevation trending down in the setting of recent surgery. Also anemic. Recommendations: - Agree with CT surgery follow up - Aggressive medical management for CAD - PRBC's transfusion Thank you for the opportunity to take part on the care of this patient Will be available on PRN for an questions or concerns (2) Acute hypoxemic respiratory failure ICD Codes: J96.01 - Acute respiratory failure with hypoxia Status: Acute (3) DM2 (diabetes mellitus, type 2) ICD Codes: E11.9 - Type 2 diabetes mellitus without complications Status: Chronic (4) Hypoxia ICD Codes: R09.02 - Hypoxemia Status: Acute (5) Bilateral pulmonary embolism ICD Codes: I26.99 - Other pulmonary embolism without acute cor pulmonale Status: Chronic (6) Acute respiratory failure with hypoxia ICD Codes: J96.01 - Acute respiratory failure with hypoxia Status: Acute (7) Hyperlipidemia ICD Codes: E78.5 - Hyperlipidemia, unspecified Status: Chronic (8) HTN (hypertension) ICD Codes: I10 - Essential (primary) hypertension Status: Chronic (9) COPD exacerbation ICD Codes: J44.1 - Chronic obstructive pulmonary disease with (acute) exacerbation Status: Acute (10) CAD (coronary artery disease) ICD Codes: I25.10 - Atherosclerotic heart disease of [place] coronary artery without angina pectoris Status: Acute (11) S/P CABG x 3 ICD Codes: Z95.1 - Presence of aortocoronary bypass graft Status: Acute Bg-Jaswinedr Moore MD Apr 28, 2017 09:49
[2017-04-28] MEDS: FLUDROCORTISONE ACETATE 0.1 MG TAB PO SCH (09:50)
[2017-04-28] MEDS: MAGNESIUM OXIDE 400 MG TAB PO SCH ×2 (11:00→20:51)
--- NOTE | 2017-04-28 11:50 | EKG ---
Date Performed: 04/28/2017 Time Performed: 04:55:20 PTAGE: 56 years EKG: Atrial flutter with rapid ventricular response. Lateral ST-T changes Abnormal ECG PREVIOUS TRACING : 04/27/2017 14.35 Compared to the previous tracing Sinus rhythm no longer present DOCTOR: Lakshmi Anders Interpretating Date/Time 04/28/2017 11:49:11
[2017-04-28] MEDS ORDERED: SODIUM CHLOR 0.9% 250 ML INJ 250 ML IV ONE (12:30)
[2017-04-28 12:56] LABS: AUTOMATED NEUTROPHIL # 8.3 TH/MM3 (1.8-7.7); BASOPHIL % 0.5 % (0.0-2.0); EOSINOPHIL # 0.4 TH/MM3 (0-0.4); EOSINOPHIL % 3.4 % (0.0-4.0); HEMO FLAGS DIFF FINAL; LYMPH % 9.4 % (9.0-44.0); MEAN CELL VOLUME 90.1 FL (80.0-100.0); MEAN CORPUSCULAR HEMOGLOBIN 30.2 PG (27.0-34.0); MEAN CORPUSCULAR HGB CONC 33.5 % (32.0-36.0); MONO % 8.3 % (0.0-8.0); NEUT % 78.4 % (16.0-70.0); PLATELET COUNT 248 TH/MM3 (150-450); RED BLOOD COUNT 2.55 MIL/MM3 (4.50-5.90); RED CELL DISTRIBUTION WIDTH 14.4 % (11.6-17.2); WHITE BLOOD COUNT 10.6 TH/MM3 (4.0-11.0)
[2017-04-28 13:28] LABS: ALKALINE PHOSPHATASE 224 U/L (45-117); ALT (GPT) 502 U/L (12-78); ANION GAP 9 MEQ/L (5-15); AST (GOT) 383 U/L (15-37); BICARBONATE 26.7 MEQ/L (21.0-32.0); BLOOD UREA NITROGEN 43 MG/DL (7-18); CHLORIDE 104 MEQ/L (98-107); GLOMERULAR FILTRATION RATE 66 ML/MIN (>89); POTASSIUM 4.2 MEQ/L (3.5-5.1); SODIUM (NA) 140 MEQ/L (136-145); TOTAL BILIRUBIN ADULT 0.6 MG/DL (0.2-1.0)
[2017-04-28 13:29] LABS: CREATINE KINASE 97 U/L (39-308)
--- NOTE | 2017-04-28 13:51 | PD.CAR.PN ---
CVT Progress Note Subjective/Hospital Course: Patient known to our service s/p CABG. He has multiple medical issues including severe COPD on home oxygen, recent pulmonary emboli, renal insufficiency, and DM. He c/o fatigue and chronic pain Objective: Vital Signs Date Time Temp Pulse Resp B/P (MAP) Pulse Ox O2 Delivery O2 Flow Rate FiO2 04/28/17 10:00 97.9 88 20 107/70 (82) 95 04/28/17 09:53 18 04/28/17 09:53 18 04/28/17 08:00 97 Nasal Cannula 3.00 04/28/17 07:51 79 133/68 04/28/17 07:32 127 108/63 04/28/17 07:00 104 04/28/17 06:38 126 16 123/69 (87) 93 04/28/17 06:29 122 04/28/17 06:14 132 16 119/56 (77) 92 04/28/17 06:10 130 132/72 04/28/17 06:04 137 124/74 04/28/17 05:41 98.7 156 18 144/83 (103) 93 04/28/17 04:00 96.8 82 20 164/71 (102) 92 04/28/17 01:04 98 Nasal Cannula 1.50 04/28/17 00:10 98.0 74 18 122/62 (82) 94 04/27/17 19:25 96.8 76 18 116/62 (80) 98 04/27/17 16:00 96.3 94 19 150/70 (96) 99 04/27/17 15:24 04/27/17 15:15 78 18 128/68 (88) 96 Nasal Cannula 4.00 Labs: Laboratory Tests Test 04/28/17 12:46 White Blood Count 10.6 TH/MM3 (4.0-11.0) Red Blood Count 2.55 MIL/MM3 (4.50-5.90) Hemoglobin 7.7 GM/DL (13.0-17.0) Hematocrit 23.0 % (39.0-51.0) Mean Corpuscular Volume 90.1 FL (80.0-100.0) Mean Corpuscular Hemoglobin 30.2 PG (27.0-34.0) Mean Corpuscular Hemoglobin Concent 33.5 % (32.0-36.0) Red Cell Distribution Width 14.4 % (11.6-17.2) Platelet Count 248 TH/MM3 (150-450) Mean Platelet Volume 8.6 FL (7.0-11.0) Neutrophils (%) (Auto) 78.4 % (16.0-70.0) Lymphocytes (%) (Auto) 9.4 % (9.0-44.0) Monocytes (%) (Auto) 8.3 % (0.0-8.0) Eosinophils (%) (Auto) 3.4 % (0.0-4.0) Basophils (%) (Auto) 0.5 % (0.0-2.0) Neutrophils # (Auto) 8.3 TH/MM3 (1.8-7.7) Lymphocytes # (Auto) 1.0 TH/MM3 (1.0-4.8) Monocytes # (Auto) 0.9 TH/MM3 (0-0.9) Eosinophils # (Auto) 0.4 TH/MM3 (0-0.4) Basophils # (Auto) 0.0 TH/MM3 (0-0.2) CBC Comment DIFF FINAL Differential Comment Blood Urea Nitrogen 43 MG/DL (7-18) Creatinine 1.14 MG/DL (0.60-1.30) Random Glucose 217 MG/DL (74-106) Total Protein 6.8 GM/DL (6.4-8.2) Albumin 2.8 GM/DL (3.4-5.0) Calcium Level 8.6 MG/DL (8.5-10.1) Alkaline Phosphatase 224 U/L (45-117) Aspartate Amino Transf (AST/SGOT) 383 U/L (15-37) Alanine Aminotransferase (ALT/SGPT) 502 U/L (12-78) Total Bilirubin 0.6 MG/DL (0.2-1.0) Sodium Level 140 MEQ/L (136-145) Potassium Level 4.2 MEQ/L (3.5-5.1) Chloride Level 104 MEQ/L (98-107) Carbon Dioxide Level 26.7 MEQ/L (21.0-32.0) Anion Gap 9 MEQ/L (5-15) Estimat Glomerular Filtration Rate 66 ML/MIN (>89) Ammonia 36 MCMOL/L (11-32) Total Creatine Kinase 97 U/L (39-308) Troponin I 1.60 NG/ML (0.02-0.05) Result Diagram: 04/28/17 1246 04/28/17 1246 Imaging: Last Impressions Chest X-Ray 04/27/17 0000 Signed Impressions: Service Date/Time: Thursday, April 27, 2017 11:44 - CONCLUSION: No evidence of pneumothorax or airspace consolidation. Chleo Walsh MD Cardiovascular: RRR Telemetry: NSR Pulmonary: CTA GI/: NABS Incision: dry and intact Plan: Transfuse 2 units pRBC Diurese Elevated troponin likely perioperative Encourage ambulation/up to chair Anticoagulation for recent PE. Physical therapy (1) Troponin level elevated Plan: Troponin elevation trending down in the setting of recent surgery. Also anemic. Recommendations: - Agree with CT surgery follow up - Aggressive medical management for CAD - PRBC's transfusion Thank you for the opportunity to take part on the care of this patient Will be available on PRN for an questions or concerns (2) Acute hypoxemic respiratory failure (3) DM2 (diabetes mellitus, type 2) (4) Hypoxia (5) Bilateral pulmonary embolism (6) Acute respiratory failure with hypoxia (7) Hyperlipidemia (8) HTN (hypertension) (9) COPD exacerbation (10) CAD (coronary artery disease) (11) S/P CABG x 3 Callie Falcon MD Apr 28, 2017 13:51
[2017-04-28] MEDS: APIXABAN 2.5 MG TABLET PO SCH ×2 (17:00→20:40)
[2017-04-28] MEDS: OLANZapine 10 MG TAB PO SCH (20:39)
[2017-04-28] MEDS: ATORVASTATIN 20 MG TAB PO SCH (20:39)
[2017-04-28] MEDS: FUROSEMIDE 20 MG/2 ML VIAL IV SCH (20:41)
[2017-04-28] MEDS ORDERED: FUROSEMIDE 40 MG/4 ML VIAL IV PUSH PRN (23:00)
[2017-04-29] VITALS (37 sets, daily range): BP systolic 111–159; BP diastolic 62–89; PULSE 70–98; RESP 18–22; TEMP 97.6–98.7; O2SAT 92–97
[2017-04-29] MEDS: RESP: ALBUTEROL 2.5 MG/IPRATROPIUM 0.5 MG NEB (SCH) NEB ×6 (02:22→19:53)
[2017-04-29] MEDS: VENLAFAXINE HCL 25 MG TAB PO SCH ×2 (05:35→17:00)
[2017-04-29] MEDS: INSULIN NovoLIN REGULAR SUPPLEMENTAL SCALE SQ SCH ×4 (05:42→21:13)
[2017-04-29] MEDS: guaiFENesin E.R. 600 MG TAB PO SCH ×2 (08:32→21:04)
[2017-04-29] MEDS: APIXABAN 2.5 MG TABLET PO SCH ×2 (08:33→21:04)
[2017-04-29] MEDS: FLUDROCORTISONE ACETATE 0.1 MG TAB PO SCH (08:33)
[2017-04-29] MEDS: METOPROLOL TARTRATE 25 MG TAB PO SCH ×2 (08:33→21:03)
[2017-04-29] MEDS: ASPIRIN 81 MG CHEW TAB CHEW SCH (08:33)
[2017-04-29] MEDS: PREGABALIN 75 MG CAP PO SCH ×2 (08:34→21:03)
[2017-04-29] MEDS: FUROSEMIDE 20 MG/2 ML VIAL IV SCH ×2 (08:34→21:02)
[2017-04-29] MEDS: HEPARIN SODIUM - SQ 10,000 UNITS/ML VIAL SQ SCH ×2 (08:34→21:02)
[2017-04-29] MEDS: FERROUS SULFATE 325 MG (65 MG ELEMENTAL IRON) TAB PO SCH ×2 (08:34→17:32)
[2017-04-29] MEDS: DOCUSATE SODIUM 50 MG/SENNA 8.6 MG TAB PO SCH ×2 (08:35→21:00)
[2017-04-29] MEDS: SODIUM CHLORIDE 0.9% FLUSH 10 ML FLUSH IV FLUSH SCH ×2 (08:35→21:00)
--- NOTE | 2017-04-29 11:01 | PD.CAR.PN ---
CVT Progress Note Subjective/Hospital Course: Patient known to our service s/p CABG. He has multiple medical issues including severe COPD on home oxygen, recent pulmonary emboli, renal insufficiency, and DM. He c/o fatigue and chronic pain 04/29 doing well, no more confusion, sutures in place left forehead sternal incision intact and well approximated left leg incision intact Objective: GENERAL: SKIN: Warm and dry. sternal incision intact and well approximated HEAD: Normocephalic. EYES: No scleral icterus. No injection or drainage. NECK: Supple, trachea midline. No JVD or lymphadenopathy. CARDIOVASCULAR: Regular rate and rhythm without murmurs, gallops, or rubs. RESPIRATORY: Breath sounds equal bilaterally. No accessory muscle use. GASTROINTESTINAL: Abdomen soft, non-tender, nondistended. MUSCULOSKELETAL: No cyanosis, or edema. BACK: Nontender without obvious deformity. No CVA tenderness. Vital Signs Date Time Temp Pulse Resp B/P (MAP) Pulse Ox O2 Delivery O2 Flow Rate FiO2 04/29/17 08:05 93 04/29/17 08:01 98.6 87 18 159/76 (103) 95 04/29/17 07:01 78 04/29/17 06:07 72 04/29/17 05:00 70 04/29/17 04:00 74 04/29/17 03:51 98.4 85 20 112/67 (82) 96 04/29/17 03:00 76 04/29/17 02:22 93 04/29/17 02:00 77 04/29/17 01:15 98.3 70 20 111/65 97 04/29/17 01:00 76 04/29/17 00:53 98.0 75 20 120/71 97 04/29/17 00:28 98.7 73 20 111/62 94 04/29/17 00:00 98.1 76 22 120/69 (86) 97 04/29/17 00:00 74 04/28/17 22:12 98.4 77 22 125/70 92 04/28/17 22:00 77 04/28/17 21:48 98.5 82 22 123/68 92 04/28/17 21:00 75 04/28/17 20:00 74 04/28/17 20:00 98.5 74 22 125/70 (88) 92 04/28/17 18:00 120 04/28/17 17:00 76 04/28/17 16:02 93 Nasal Cannula 2.00 04/28/17 16:00 72 04/28/17 15:00 65 04/28/17 15:00 97.9 71 20 137/70 (92) 94 04/28/17 14:00 68 04/28/17 13:00 68 04/28/17 12:00 66 04/28/17 12:00 97.5 75 20 105/58 (74) 96 04/28/17 11:00 73 Result Diagram: 04/28/17 1246 04/28/17 1246 Telemetry: NSR (1) Troponin level elevated Plan: Troponin elevation trending down in the setting of recent surgery. Also anemic. -s/p PRBC's transfusion Pt/ OOB pulm toileting will see prn (2) DM2 (diabetes mellitus, type 2) (3) Hypoxia (4) Bilateral pulmonary embolism (5) Hyperlipidemia (6) HTN (hypertension) (7) COPD exacerbation (8) CAD (coronary artery disease) (9) S/P CABG x 3 Chloe Gillespie Apr 29, 2017 11:01
[2017-04-29] MEDS: MAGNESIUM OXIDE 400 MG TAB PO SCH (12:31)
--- NOTE | 2017-04-29 12:55 | HHI.PR ---
Subjective Remarks This is a pleasant 56 y/o Male with status post CABG on 04/18/17 he has CAD, Anxiety disorder, DM II, Hypertension, Hyperlipidemia Bilateral Pulmonary emboli (September 2016). Preliminary Pulmonary function test results performed on on 04/14 indicated the presence of mild to moderate obstructive disease and moderate restrictive disease. Discharged on 04/22/17 to [facility] for rehabilitation services. On the evening of 04/26/17 he suffered a fall in which his head struck a door and then the floor. His laceration was above his left eye was significant enough for [place] to [place] [facility] He was returned to [facility]. On the morning of 04/27/17 Mr. Julio was reported to be confused, with oxygen saturation reported to be in the 80's. He was returned [place] [facility] and was noted to be confused and hypoxic. He was placed on oxygen by nasal cannula. Labs drawn indicated elevated liver enzymes (AST 892, ALT 562, Alk Phos 262) BNP 499, Blood glucose 169 and urine glucose 1000. Chest xray was negative for pneumatothorax or consolidation. 04/28: Patient seen in his bedroom, no nausea, vomit or diarrhea and he is alert and oriented x 3, yesterday after discuss with ER specialist was considered the possibility of CHF he has low BNP, then also had some increased Cardiac enzymes both results may be related to his recent Cardiac Surgery, knowing that he has acute renal injury was given some IV fluids, after discuss with nurse late in the afternoon was considered to perform a new BMP and BNP, his liver function was not improving yesterday afternoon, the patient is asymptomatic, initially given in ER Lasix IV then started on IV fluids thinking that the patient may need some IV fluids, at this time I am waiting for his new laboratory for the morning, he is been sleeping, Consulted his Primary Cardiothoracic Surgeon and Cardiology for follow up purposes but I think the patient has a good Post Operative course. His BNP was increasing yesterday afternoon so his IV fluids were held. at this time stable no complaint, his lungs are clean. 04/29: seen in his bedroom asking to go home, stable already seen by Cardiology and Cardiothoracic surgery, transfused yesterday and okay to discharge tomorrow he is improving his condition, he has Narcotic dependence will give him small amount of Narcotics but this was the reason for the patient coming to ER with status post fall, too much Pain medicine. Objective Vital Signs Date Time Temp Pulse Resp B/P (MAP) Pulse Ox O2 Delivery O2 Flow Rate FiO2 04/29/17 11:01 98.2 82 18 144/89 (107) 92 04/29/17 08:05 93 04/29/17 08:01 98.6 87 18 159/76 (103) 95 04/29/17 07:01 78 04/29/17 06:07 72 04/29/17 05:00 70 04/29/17 04:00 74 04/29/17 03:51 98.4 85 20 112/67 (82) 96 04/29/17 03:00 76 04/29/17 02:22 93 04/29/17 02:00 77 04/29/17 01:15 98.3 70 20 111/65 97 04/29/17 01:00 76 04/29/17 00:53 98.0 75 20 120/71 97 04/29/17 00:28 98.7 73 20 111/62 94 04/29/17 00:00 98.1 76 22 120/69 (86) 97 04/29/17 00:00 74 04/28/17 22:12 98.4 77 22 125/70 92 04/28/17 22:00 77 04/28/17 21:48 98.5 82 22 123/68 92 04/28/17 21:00 75 04/28/17 20:00 74 04/28/17 20:00 98.5 74 22 125/70 (88) 92 04/28/17 18:00 120 04/28/17 17:00 76 04/28/17 16:02 93 Nasal Cannula 2.00 04/28/17 16:00 72 04/28/17 15:00 65 04/28/17 15:00 97.9 71 20 137/70 (92) 94 04/28/17 14:00 68 04/28/17 13:00 68 I/O 04/28/17 04/28/17 04/28/17 04/29/17 04/29/17 04/29/17 07:00 15:00 23:00 07:00 15:00 23:00 Intake Total 970 ml 1430 ml Output Total 1200 ml 2000 ml Balance -230 ml -570 ml Intake Oral 960 ml 240 ml Packed Cells 1160 ml Blood Product IV Normal Saline Flush 10 ml 30 ml Output Urine Total 1200 ml 2000 ml # Bowel Movements 1 Result Diagram: 04/28/17 1246 04/28/17 1246 Imaging Last Impressions Chest X-Ray 04/27/17 0000 Signed Impressions: Service Date/Time: Thursday, April 27, 2017 11:44 - CONCLUSION: No evidence of pneumothorax or airspace consolidation. Chloe Walsh MD Procedures None Other Results Laboratory Tests Test 04/27/17 11:50 04/27/17 18:45 04/28/17 12:46 Urine Color YELLOW Urine Turbidity CLEAR Urine pH 5.5 Urine Specific [place] 1.015 Urine Protein 30 mg/dL Urine Glucose (UA) 1000 mg/dL Urine Ketones NEG mg/dL Urine Occult Blood NEG Urine Nitrite NEG Urine Bilirubin NEG Urine Urobilinogen 4.0 MG/DL Urine Leukocyte Esterase NEG Urine RBC 1 /hpf Urine WBC 4 /hpf Urine Squamous Epithelial Cells <1 /hpf Urine Bacteria RARE /hpf Urine Hyaline Casts 32 /lpf Urine Mucus FEW /lpf Microscopic Urinalysis Comment CULT NOT INDICATED B-Type Natriuretic Peptide 620 PG/ML White Blood Count 10.6 TH/MM3 Red Blood Count 2.55 MIL/MM3 Hemoglobin 7.7 GM/DL Hematocrit 23.0 % Mean Corpuscular Volume 90.1 FL Mean Corpuscular Hemoglobin 30.2 PG Mean Corpuscular Hemoglobin Concent 33.5 % Red Cell Distribution Width 14.4 % Platelet Count 248 TH/MM3 Mean Platelet Volume 8.6 FL Neutrophils (%) (Auto) 78.4 % Lymphocytes (%) (Auto) 9.4 % Monocytes (%) (Auto) 8.3 % Eosinophils (%) (Auto) 3.4 % Basophils (%) (Auto) 0.5 % Neutrophils # (Auto) 8.3 TH/MM3 Lymphocytes # (Auto) 1.0 TH/MM3 Monocytes # (Auto) 0.9 TH/MM3 Eosinophils # (Auto) 0.4 TH/MM3 Basophils # (Auto) 0.0 TH/MM3 CBC Comment DIFF FINAL Differential Comment Blood Urea Nitrogen 43 MG/DL Creatinine 1.14 MG/DL Random Glucose 217 MG/DL Total Protein 6.8 GM/DL Albumin 2.8 GM/DL Calcium Level 8.6 MG/DL Alkaline Phosphatase 224 U/L Aspartate Amino Transf (AST/SGOT) 383 U/L Alanine Aminotransferase (ALT/SGPT) 502 U/L Total Bilirubin 0.6 MG/DL Sodium Level 140 MEQ/L Potassium Level 4.2 MEQ/L Chloride Level 104 MEQ/L Carbon Dioxide Level 26.7 MEQ/L Anion Gap 9 MEQ/L Estimat Glomerular Filtration Rate 66 ML/MIN Ammonia 36 MCMOL/L Total Creatine Kinase 97 U/L Troponin I 1.60 NG/ML Objective Remarks GENERAL: This is a well-nourished, well-developed patient, in no apparent distress. SKIN: No rashes, ecchymoses or lesions. Cool and dry. Bandage noted behind left knee site of vein harvest. Surgical incision noted mid chest. HEAD: Atraumatic. Normocephalic. No temporal or scalp tenderness. EYES: Pupils equal round and reactive. Extraocular motions intact. No scleral icterus. No injection or drainage. left Eyebrow with stitches in place. NECK: Trachea midline. No lymphadenopathy. Supple and nontender. CARDIOVASCULAR: Regular rate and rhythm without murmurs, gallops, or rubs. RESPIRATORY: Clear to auscultation. Breath sounds equal bilaterally but diminished. No wheezes, rales, or rhonchi. GASTROINTESTINAL: Abdomen soft, non-tender, nondistended. No hepato-splenomegaly , or guarding. MUSCULOSKELETAL: Extremities without clubbing, cyanosis, or edema. No joint tenderness, effusion, or edema noted. NEUROLOGICAL: Awake and alert oriented x 3 PSYCHIATRIC: good mood. Medications and IVs Current Medications Medications (Trade) Dose Ordered Sig/Dario Route Start Time Stop Time Status Last Admin (Aspirin Chew) 81 mg DAILY CHEW 04/28/17 09:00 04/29/17 08:33 (Lipitor) 20 mg HS PO 04/27/17 21:00 04/28/17 20:39 (Ferrous Sulfate) 325 mg BIDPC PO 04/27/17 18:00 04/29/17 08:34 (Florinef) 0.1 mg DAILY PO 04/28/17 09:00 04/29/17 08:33 (Mag-Ox) 400 mg BID@1100,2300 PO 04/27/17 23:00 04/29/17 12:31 (Lopressor) 12.5 mg BID PO 04/27/17 21:00 04/29/17 08:33 (ZyPREXA) 10 mg HS PO 04/27/17 21:00 04/28/17 20:39 (Lyrica) 75 mg BID PO 04/27/17 21:00 04/29/17 08:34 (Effexor) 50 mg Q12H PO 04/27/17 17:00 04/29/17 05:35 (Prinivil) 2.5 mg DAILY PO 04/28/17 09:00 Future Hold (NS Flush) 2 ml UNSCH PRN IV FLUSH 04/27/17 14:30 (NS Flush) 2 ml BID IV FLUSH 04/27/17 21:00 04/29/17 08:35 (Jasmyne-Colace) 1 tab BID PO 04/27/17 21:00 04/29/17 08:35 (Milk Of Magnesia Liq) 30 ml Q12H PRN PO 04/27/17 14:30 (Senokot) 17.2 mg Q12H PRN PO 04/27/17 14:30 (Dulcolax Supp) 10 mg DAILY PRN RECTAL 04/27/17 14:30 (Lactulose Liq) 30 ml DAILY PRN PO 04/27/17 14:30 (Tylenol) 650 mg Q4H PRN PO 04/27/17 14:30 04/28/17 08:52 (Zofran Inj) 4 mg Q6H PRN IVP 04/27/17 14:30 (Narcan Inj) 0.4 mg UNSCH PRN IV 04/27/17 14:30 (Duoneb Neb) 1 ampule Q4HR NEB NEB 04/27/17 16:00 04/29/17 12:15 (Mucinex Er) 600 mg BID PO 04/27/17 21:00 04/29/17 08:32 (NovoLIN R SUPPLEMENTAL SCALE) 1 ACHS SLIDING SCALE SQ 04/27/17 16:00 04/29/17 12:32 (Pill Splitter) 1 ea UNSCH PRN OTHER 04/27/17 15:45 (D50w (Vial) Inj) 50 ml UNSCH PRN IV PUSH 04/27/17 16:00 (Glucagon Inj) 1 mg UNSCH PRN OTHER 04/27/17 16:00 Diltiazem HCl 125 mg/Sodium Chloride 125 ml @ 5 mls/hr TITRATE PRN IV 04/28/17 05:15 04/28/17 06:04 (Heparin Inj) 5,000 units Q12HR SQ 04/28/17 09:00 04/29/17 08:34 (Lasix Inj) 40 mg BID IV 04/28/17 21:00 04/29/17 08:34 (Eliquis) 2.5 mg BID PO 04/28/17 15:00 04/29/17 08:33 A/P Assessment and Plan Mr. Julio is 56 yo, with history of 3 vessel CABG (performed 04/18/17 ), Coronary artery disease, Anxiety, Acid Reflux, DM II, Hypertension, hyperlipidemia, NSTEMI and Bilateral Pulmonary emboli (September 2016). Preliminary Pulmonary function test results performed on on 04/14 indicated the presence of mild to moderate obstructive disease and moderate restrictive disease. Mr. Julio [place] [facility] [place] on 04/22/17 to [facility] for rehabilitation services. On the evening of 04/26/17 he suffered a fall in which his head struck a door and then the floor. His laceration was above his left eye was significant enough for him to be [place] [facility] [place] He was returned to [facility]. On the morning of 04/27/17 Mr. Julio was reported to be confused, with oxygen saturation reported to be in the 80's. He was returned to [facility] and was noted to be confused and hypoxic. He was placed on oxygen by nasal cannula. Labs drawn indicated elevated liver enzymes (AST 892, ALT 562, Alk Phos 262) BNP 499, Blood glucose 169 and urine glucose 1000. Chest xray was negative for pneumothorax or consolidation. 1. Encephalopathy probable related to Narcotic abuse, and dependency, Improved. had mild increase in ammonia level to 36. he is having daily BMs. 2. Acute Renal Injury Improved. 3. Elevated BNP, probable secondary to recent procedure now stable and asymptomatic. 4. CAD status post CABG continue Oxygen, seen by Cardiology and Cardiothoracic surgery 5. CHF probable exacerbation EF 35-40%. his last Echocardiogram was not good quality due to poor visualization but this no need for further tests. 6. DM II continue sliding scale, ADA diet, held Metformin, mild uncontrol adjusted insulin. 7. Obstructive/restrictive airway disease -Duonebs as needed -Guaifenesin ER 600 mg BID 8. Hypertension on hold Lisinopril and diuretics at this time due to MIRNA today re started. 9. Hyperkalemia Improved he receive Kayexalate. Improved. 10. Chronic pain syndrome and narcotic dependence on low dose Narcotics DVT prophylaxis: -SCD's -Out of bed as tolerated, ambulation -SCD's. -Physical Therapy. Discharge Planning Expected in am tomorrow. Tim Grubbs MD Apr 29, 2017 12:55
[2017-04-29] MEDS: INSULIN DETEMIR 100 UNITS/ML VIAL SQ SCH ×2 (13:15→21:13)
[2017-04-29] MEDS: ATORVASTATIN 20 MG TAB PO SCH (21:03)
[2017-04-29] MEDS: OLANZapine 10 MG TAB PO SCH (21:04)
[2017-04-30] VITALS (17 sets, daily range): BP systolic 112–137; BP diastolic 62–78; PULSE 68–96; RESP 16–20; TEMP 97.3–98.4; O2SAT 93–97
[2017-04-30] MEDS: MAGNESIUM OXIDE 400 MG TAB PO SCH ×2 (00:26→12:01)
[2017-04-30] MEDS: DILTIAZEM INJ 125 MG in SODIUM CHLORIDE 0.9% INJ 100 ML IV PRN (01:16)
[2017-04-30] MEDS: RESP: ALBUTEROL 2.5 MG/IPRATROPIUM 0.5 MG NEB (SCH) NEB ×5 (04:00→15:25)
[2017-04-30] MEDS: VENLAFAXINE HCL 25 MG TAB PO SCH (04:09)
[2017-04-30] MEDS: INSULIN NovoLIN REGULAR SUPPLEMENTAL SCALE SQ SCH ×2 (06:06→12:06)
[2017-04-30] MEDS: APIXABAN 2.5 MG TABLET PO SCH (09:00)
--- NOTE | 2017-04-30 10:26 | HHI.PR ---
Subjective Remarks This is a pleasant 56 y/o Male with status post CABG on 04/18/17 he has CAD, Anxiety disorder, DM II, Hypertension, Hyperlipidemia Bilateral Pulmonary emboli (September 2016). Preliminary Pulmonary function test results performed on on 04/14 indicated the presence of mild to moderate obstructive disease and moderate restrictive disease. Discharged on 04/22/17 to [facility] for rehabilitation services. On the evening of 04/26/17 he suffered a fall in which his head struck a door and then the floor. His laceration was above his left eye was significant enough for him to be transported to [facility] for suturing. He was returned to [facility]. On the morning of 04/27/17 Mr. Julio was reported to be confused, with oxygen saturation reported to be in the 80's. He was returned to [facility] and was noted to be confused and hypoxic. He was placed on oxygen by nasal cannula. Labs drawn indicated elevated liver enzymes (AST 892, ALT 562, Alk Phos 262) BNP 499, Blood glucose 169 and urine glucose 1000. Chest xray was negative for pneumatothorax or consolidation. 04/28: Patient seen in his bedroom, no nausea, vomit or diarrhea and he is alert and oriented x 3, yesterday after discuss with ER specialist was considered the possibility of CHF he has low BNP, then also had some increased Cardiac enzymes both results may be related to his recent Cardiac Surgery, knowing that he has acute renal injury was given some IV fluids, after discuss with nurse late in the afternoon was considered to perform a new BMP and BNP, his liver function was not improving yesterday afternoon, the patient is asymptomatic, initially given in ER Lasix IV then started on IV fluids thinking that the patient may need some IV fluids, at this time I am waiting for his new laboratory for the morning, he is been sleeping, Consulted his Primary Cardiothoracic Surgeon and Cardiology for follow up purposes but I think the patient has a good Post Operative course. His BNP was increasing yesterday afternoon so his IV fluids were held. at this time stable no complaint, his lungs are clean. 04/29: seen in his bedroom asking to go home, stable already seen by Cardiology and Cardiothoracic surgery, transfused yesterday and okay to discharge tomorrow he is improving his condition, he has Narcotic dependence will give him small amount of Narcotics but this was the reason for the patient coming to ER with status post fall, too much Pain medicine. 04/30: Seen in his bedroom stable patient, asked for new CMP to re evaluate his Liver Function, discussed with nurse Miss De Los Santos as per Physical Therapy okay to go home on [facility] for PT and Skilled nurse he has already a walker, Objective Vital Signs Date Time Temp Pulse Resp B/P (MAP) Pulse Ox O2 Delivery O2 Flow Rate FiO2 04/30/17 08:00 68 04/30/17 07:00 69 04/30/17 07:00 97.3 89 18 125/78 (94) 95 04/30/17 07:00 89 125/78 04/30/17 06:00 74 04/30/17 05:00 74 04/30/17 04:00 72 04/30/17 04:00 98.4 80 18 115/62 (79) 93 04/30/17 03:48 73 04/30/17 03:00 72 04/30/17 02:00 72 04/30/17 01:16 71 126/73 04/30/17 01:00 78 04/30/17 00:00 97.5 71 20 126/73 (90) 95 04/30/17 00:00 74 04/29/17 23:49 72 04/29/17 23:00 70 04/29/17 22:00 76 04/29/17 21:00 78 04/29/17 20:00 74 04/29/17 20:00 97.6 79 18 121/70 (87) 94 04/29/17 20:00 79 121/70 04/29/17 19:55 97 04/29/17 19:38 79 04/29/17 19:00 86 04/29/17 18:10 88 04/29/17 17:00 78 04/29/17 16:45 95 04/29/17 16:00 86 04/29/17 15:15 98.0 81 18 139/73 (95) 92 04/29/17 15:00 87 04/29/17 14:00 90 04/29/17 13:00 96 04/29/17 12:00 88 04/29/17 11:01 98.3 83 18 117/66 (83) 93 04/29/17 11:00 82 I/O 04/29/17 04/29/17 04/29/17 04/30/17 04/30/17 04/30/17 06:59 14:59 22:59 06:59 14:59 22:59 Intake Total 1430 ml 1512 ml 480 ml 0 ml Output Total 2000 ml 1675 ml 1700 ml Balance -570 ml -163 ml -1220 ml 0 ml Intake Oral 240 ml 1320 ml 480 ml 0 ml IV Total 192 ml Packed Cells 1160 ml Blood Product IV Normal Saline Flush 30 ml Output Urine Total 2000 ml 1675 ml 1700 ml # Voids 5 # Bowel Movements 1 1 1 Result Diagram: 04/28/17 1246 04/28/17 1246 Imaging Last Impressions Chest X-Ray 04/27/17 0000 Signed Impressions: Service Date/Time: Thursday, April 27, 2017 11:44 - CONCLUSION: No evidence of pneumothorax or airspace consolidation. Chloe Walsh MD Procedures None Other Results Laboratory Tests Test 04/27/17 11:50 04/27/17 18:45 04/28/17 12:46 Urine Color YELLOW Urine Turbidity CLEAR Urine pH 5.5 Urine Specific [place] 1.015 Urine Protein 30 mg/dL Urine Glucose (UA) 1000 mg/dL Urine Ketones NEG mg/dL Urine Occult Blood NEG Urine Nitrite NEG Urine Bilirubin NEG Urine Urobilinogen 4.0 MG/DL Urine Leukocyte Esterase NEG Urine RBC 1 /hpf Urine WBC 4 /hpf Urine Squamous Epithelial Cells <1 /hpf Urine Bacteria RARE /hpf Urine Hyaline Casts 32 /lpf Urine Mucus FEW /lpf Microscopic Urinalysis Comment CULT NOT INDICATED B-Type Natriuretic Peptide 620 PG/ML White Blood Count 10.6 TH/MM3 Red Blood Count 2.55 MIL/MM3 Hemoglobin 7.7 GM/DL Hematocrit 23.0 % Mean Corpuscular Volume 90.1 FL Mean Corpuscular Hemoglobin 30.2 PG Mean Corpuscular Hemoglobin Concent 33.5 % Red Cell Distribution Width 14.4 % Platelet Count 248 TH/MM3 Mean Platelet Volume 8.6 FL Neutrophils (%) (Auto) 78.4 % Lymphocytes (%) (Auto) 9.4 % Monocytes (%) (Auto) 8.3 % Eosinophils (%) (Auto) 3.4 % Basophils (%) (Auto) 0.5 % Neutrophils # (Auto) 8.3 TH/MM3 Lymphocytes # (Auto) 1.0 TH/MM3 Monocytes # (Auto) 0.9 TH/MM3 Eosinophils # (Auto) 0.4 TH/MM3 Basophils # (Auto) 0.0 TH/MM3 CBC Comment DIFF FINAL Differential Comment Blood Urea Nitrogen 43 MG/DL Creatinine 1.14 MG/DL Random Glucose 217 MG/DL Total Protein 6.8 GM/DL Albumin 2.8 GM/DL Calcium Level 8.6 MG/DL Alkaline Phosphatase 224 U/L Aspartate Amino Transf (AST/SGOT) 383 U/L Alanine Aminotransferase (ALT/SGPT) 502 U/L Total Bilirubin 0.6 MG/DL Sodium Level 140 MEQ/L Potassium Level 4.2 MEQ/L Chloride Level 104 MEQ/L Carbon Dioxide Level 26.7 MEQ/L Anion Gap 9 MEQ/L Estimat Glomerular Filtration Rate 66 ML/MIN Ammonia 36 MCMOL/L Total Creatine Kinase 97 U/L Troponin I 1.60 NG/ML Objective Remarks GENERAL: This is a well-nourished, well-developed patient, in no apparent distress. SKIN: No rashes, ecchymoses or lesions. Cool and dry. Bandage noted behind left knee site of vein harvest. Surgical incision noted mid chest. HEAD: Atraumatic. Normocephalic. No temporal or scalp tenderness. EYES: Pupils equal round and reactive. Extraocular motions intact. No scleral icterus. No injection or drainage. left Eyebrow with stitches in place. NECK: Trachea midline. No lymphadenopathy. Supple and nontender. CARDIOVASCULAR: Regular rate and rhythm without murmurs, gallops, or rubs. RESPIRATORY: Clear to auscultation. Breath sounds equal bilaterally but diminished. No wheezes, rales, or rhonchi. GASTROINTESTINAL: Abdomen soft, non-tender, nondistended. No hepato-splenomegaly , or guarding. MUSCULOSKELETAL: Extremities without clubbing, cyanosis, or edema. No joint tenderness, effusion, or edema noted. NEUROLOGICAL: Awake and alert oriented x 3 PSYCHIATRIC: good mood. Medications and IVs Current Medications Medications (Trade) Dose Ordered Sig/Dario Route Start Time Stop Time Status Last Admin (Aspirin Chew) 81 mg DAILY CHEW 04/28/17 09:00 04/29/17 08:33 (Lipitor) 20 mg HS PO 04/27/17 21:00 04/29/17 21:03 (Ferrous Sulfate) 325 mg BIDPC PO 04/27/17 18:00 04/29/17 17:32 (Florinef) 0.1 mg DAILY PO 04/28/17 09:00 04/29/17 08:33 (Mag-Ox) 400 mg BID@1100,2300 PO 04/27/17 23:00 04/30/17 00:26 (Lopressor) 12.5 mg BID PO 04/27/17 21:00 04/29/17 21:03 (ZyPREXA) 10 mg HS PO 04/27/17 21:00 04/29/17 21:04 (Lyrica) 75 mg BID PO 04/27/17 21:00 04/29/17 21:03 (Effexor) 50 mg Q12H PO 04/27/17 17:00 04/30/17 04:09 (Prinivil) 2.5 mg DAILY PO 04/28/17 09:00 Future hold (NS Flush) 2 ml UNSCH PRN IV FLUSH 04/27/17 14:30 (NS Flush) 2 ml BID IV FLUSH 04/27/17 21:00 04/29/17 08:35 (Jasmyne-Colace) 1 tab BID PO 04/27/17 21:00 04/29/17 08:35 (Milk Of Magnesia Liq) 30 ml Q12H PRN PO 04/27/17 14:30 (Senokot) 17.2 mg Q12H PRN PO 04/27/17 14:30 (Dulcolax Supp) 10 mg DAILY PRN RECTAL 04/27/17 14:30 (Lactulose Liq) 30 ml DAILY PRN PO 04/27/17 14:30 (Tylenol) 650 mg Q4H PRN PO 04/27/17 14:30 04/28/17 08:52 (Zofran Inj) 4 mg Q6H PRN IVP 04/27/17 14:30 (Narcan Inj) 0.4 mg UNSCH PRN IV 04/27/17 14:30 (Duoneb Neb) 1 ampule Q4HR NEB NEB 04/27/17 16:00 04/30/17 07:23 (Mucinex Er) 600 mg BID PO 04/27/17 21:00 04/29/17 21:04 (NovoLIN R SUPPLEMENTAL SCALE) 1 ACHS SLIDING SCALE SQ 04/27/17 16:00 04/29/17 21:13 (Pill Splitter) 1 ea UNSCH PRN OTHER 04/27/17 15:45 (D50w (Vial) Inj) 50 ml UNSCH PRN IV PUSH 04/27/17 16:00 (Glucagon Inj) 1 mg UNSCH PRN OTHER 04/27/17 16:00 Diltiazem HCl 125 mg/Sodium Chloride 125 ml @ 5 mls/hr TITRATE PRN IV 04/28/17 05:15 04/30/17 01:16 (Heparin Inj) 5,000 units Q12HR SQ 04/28/17 09:00 04/29/17 21:02 (Lasix Inj) 40 mg BID IV 04/28/17 21:00 04/29/17 21:02 (Eliquis) 2.5 mg BID PO 04/28/17 15:00 04/29/17 21:04 (Levemir Inj) 5 units Q12HR SQ 04/29/17 13:15 04/29/17 21:13 (Roxicodone) 5 mg Q6H PRN PO 04/29/17 15:00 04/30/17 04:09 A/P Assessment and Plan Mr. Julio is 56 yo, with history of 3 vessel CABG (performed 04/18/17 ), Coronary artery disease, Anxiety, Acid Reflux, DM II, Hypertension, hyperlipidemia, NSTEMI and Bilateral Pulmonary emboli (September 2016). Preliminary Pulmonary function test results performed on on 04/14 indicated the presence of mild to moderate obstructive disease and moderate restrictive disease. Mr. Julio underwent his CABG at [facility] and was discharged on 04/22/17 to [facility] for rehabilitation services. On the evening of 04/26/17 he suffered a fall in which his head struck a door and then the floor. His laceration was above his left eye was significant enough for him to be transported to [facility] for suturing. He was returned to [facility]. On the morning of 04/27/17 Mr. Julio was reported to be confused, with oxygen saturation reported to be in the 80's. He was returned to [facility] and was noted to be confused and hypoxic. He was placed on oxygen by nasal cannula. Labs drawn indicated elevated liver enzymes (AST 892, ALT 562, Alk Phos 262) BNP 499, Blood glucose 169 and urine glucose 1000. Chest xray was negative for pneumothorax or consolidation. 1. Encephalopathy probable related to Narcotic abuse, and dependency, Improved. had mild increase in ammonia level to 36. he is having daily BMs. 2. Acute Renal Injury Improved. 3. Elevated BNP, probable secondary to recent procedure now stable and asymptomatic. 4. CAD status post CABG continue Oxygen, seen by Cardiology and Cardiothoracic surgery 5. CHF probable exacerbation EF 35-40%. his last Echocardiogram was not good quality due to poor visualization but this no need for further tests. 6. DM II continue sliding scale, ADA diet, held Metformin, mild uncontrol adjusted insulin. 7. Obstructive/restrictive airway disease -Duonebs as needed -Guaifenesin ER 600 mg BID 8. Hypertension controlled. 9. Hyperkalemia Improved he receive Kayexalate. Improved. 10. Chronic pain syndrome and narcotic dependence on low dose Narcotics DVT prophylaxis: -SCD's -Physical Therapy. Discussed with patient and nurse Miss De Los Santos will follow CMP and if Hepatic profile improving okay to discharge Home. Discharge Planning Expected later today or in AM tomorrow. Tim Grubbs MD Apr 30, 2017 10:26
[2017-04-30] MEDS: HEPARIN SODIUM - SQ 10,000 UNITS/ML VIAL SQ SCH (10:48)
[2017-04-30] MEDS: PREGABALIN 75 MG CAP PO SCH (10:49)
[2017-04-30] MEDS: ASPIRIN 81 MG CHEW TAB CHEW SCH (10:49)
[2017-04-30] MEDS: guaiFENesin E.R. 600 MG TAB PO SCH (10:49)
[2017-04-30] MEDS: DOCUSATE SODIUM 50 MG/SENNA 8.6 MG TAB PO SCH (10:49)
[2017-04-30] MEDS: FERROUS SULFATE 325 MG (65 MG ELEMENTAL IRON) TAB PO SCH (10:49)
[2017-04-30] MEDS: LISINOPRIL 5 MG TAB PO SCH (10:49)
[2017-04-30] MEDS: METOPROLOL TARTRATE 25 MG TAB PO SCH (10:50)
[2017-04-30] MEDS: FUROSEMIDE 20 MG/2 ML VIAL IV SCH (10:50)
[2017-04-30] MEDS: INSULIN DETEMIR 100 UNITS/ML VIAL SQ SCH (11:00)
[2017-04-30] MEDS: FLUDROCORTISONE ACETATE 0.1 MG TAB PO SCH (11:58)
[2017-04-30] MEDS: SODIUM CHLORIDE 0.9% FLUSH 10 ML FLUSH IV FLUSH SCH (12:01)
[2017-04-30 16:00] LABS: ANION GAP 7 MEQ/L (5-15); AST (GOT) 143 U/L (15-37); BLOOD UREA NITROGEN 26 MG/DL (7-18); CHLORIDE 101 MEQ/L (98-107); GLOMERULAR FILTRATION RATE 54 ML/MIN (>89); POTASSIUM 3.9 MEQ/L (3.5-5.1); SODIUM (NA) 139 MEQ/L (136-145)
[2017-04-30 16:01] LABS: ALKALINE PHOSPHATASE 182 U/L (45-117); ALT (GPT) 358 U/L (12-78); TOTAL BILIRUBIN ADULT 0.7 MG/DL (0.2-1.0)
[2017-04-30] MEDS ORDERED: ASPI81CH CHEW (17:25)
[2017-04-30] MEDS ORDERED: FLUD.1 PO (17:25)
[2017-04-30] MEDS ORDERED: LIPI20TA PO (17:25)
[2017-04-30] MEDS ORDERED: METO25TA3 PO (17:25)
[2017-04-30] MEDS ORDERED: FERR325T8 PO (17:25)
[2017-04-30] MEDS ORDERED: METF1000 PO (17:25)
[2017-04-30] MEDS ORDERED: B-122000 PO (17:25)
[2017-04-30] MEDS ORDERED: OXYC1CAP PO (17:25)
[2017-04-30] MEDS ORDERED: LANTUS2P SQ (17:25)
[2017-04-30] MEDS ORDERED: THERM PO (17:25)
[2017-04-30] MEDS ORDERED: OLAN10TA PO (17:25)
[2017-04-30] MEDS ORDERED: IPRASOL INH (17:25)
[2017-04-30] MEDS ORDERED: VENL50TA PO (17:25)
[2017-04-30] MEDS ORDERED: LYRI75CA PO (17:25)
[2017-04-30] MEDS ORDERED: LISI2.5T3 PO (17:25)
[2017-04-30] MEDS ORDERED: FURO1TAB62 PO (17:25)
[2017-04-30] MEDS ORDERED: FERR325C PO (17:25)
[2017-04-30] MEDS ORDERED: SYMB160A INH (17:25)
--- NOTE | 2017-04-30 17:34 | HHI.DS ---
Discharge Summary Admission Date Apr 27, 2017 at 14:24 Discharge Date: Apr 30, 2017 Admitting Diagnosis volume overload, confusion, elevated liver enzymes (1) Encephalopathy acute ICD Code: G93.40 - Encephalopathy, unspecified Diagnosis: Principal (2) Fall ICD Code: W19.XXXA - Unspecified fall, initial encounter Diagnosis: Principal Procedures Stitches on left eyebrow. Brief History - From Admission Written by Morris Joshi PA-C, acting as scribe for Dr. Wilfrid Leavitt on 04/27/17 at 15:31. Mr. Julio is 56 yo, with history of 3 vessel CABG (performed 04/18/17 ), Coronary artery disease, Anxiety, DM II, Hypertension, hyperlipidemia, and Bilateral Pulmonary emboli (September 2016). Preliminary Pulmonary function test results performed on on 04/14 indicated the presence of mild to moderate obstructive disease and moderate restrictive disease. Mr. Julio underwent his CABG at [facility] and was discharged on 04/22/17 to [facility] for rehabilitation services. On the evening of 04/26/17 he suffered a fall in which his head struck a door and then the floor. His laceration was above his left eye was significant enough for him to be transported to [facility] for suturing. He was returned to [facility]. On the morning of 04/27/17 Mr. Julio was reported to be confused, with oxygen saturation reported to be in the 80's. He was returned to [facility] and was noted to be confused and hypoxic. He was placed on oxygen by nasal cannula. Labs drawn indicated elevated liver enzymes (AST 892, ALT 562, Alk Phos 262) BNP 499, Blood glucose 169 and urine glucose 1000. Chest xray was negative for pneumatothorax or consolidation. At time of interview, Mr. Julio reported being confused, having shortness of air, chest pain (from my recent heart surgery), generalized weakness and irritability. He denied fever, nausea, vomiting, diarrhea, productive cough, bloody urine or stool. A to point ROS was conducted and, except as noted above, was negative. Mr. Julio is being admitted for further management and evaluation. CBC/BMP: 04/28/17 1246 04/30/17 1523 Significant Findings Laboratory Tests Test 04/27/17 18:45 04/27/17 23:14 04/28/17 12:46 04/30/17 15:23 B-Type Natriuretic Peptide 620 PG/ML (0-100) Troponin I 2.77 NG/ML (0.02-0.05) 1.60 NG/ML (0.02-0.05) Red Blood Count 2.55 MIL/MM3 (4.50-5.90) Hemoglobin 7.7 GM/DL (13.0-17.0) Hematocrit 23.0 % (39.0-51.0) Neutrophils (%) (Auto) 78.4 % (16.0-70.0) Monocytes (%) (Auto) 8.3 % (0.0-8.0) Neutrophils # (Auto) 8.3 TH/MM3 (1.8-7.7) Blood Urea Nitrogen 43 MG/DL (7-18) 26 MG/DL (7-18) Random Glucose 217 MG/DL (74-106) 208 MG/DL (74-106) Albumin 2.8 GM/DL (3.4-5.0) 2.9 GM/DL (3.4-5.0) Alkaline Phosphatase 224 U/L (45-117) 182 U/L (45-117) Aspartate Amino Transf (AST/SGOT) 383 U/L (15-37) 143 U/L (15-37) Alanine Aminotransferase (ALT/SGPT) 502 U/L (12-78) 358 U/L (12-78) Estimat Glomerular Filtration Rate 66 ML/MIN (>89) 54 ML/MIN (>89) Ammonia 36 MCMOL/L (11-32) Creatinine 1.35 MG/DL (0.60-1.30) Calcium Level 8.3 MG/DL (8.5-10.1) Imaging Last Impressions Chest X-Ray 04/27/17 0000 Signed Impressions: Service Date/Time: Thursday, April 27, 2017 11:44 - CONCLUSION: No evidence of pneumothorax or airspace consolidation. Chloe Walsh MD PE at Discharge GENERAL: This is a well-nourished, well-developed patient, in no apparent distress. SKIN: No rashes, ecchymoses or lesions. Cool and dry. Bandage noted behind left knee site of vein harvest. Surgical incision noted mid chest. HEAD: Atraumatic. Normocephalic. No temporal or scalp tenderness. EYES: Pupils equal round and reactive. Extraocular motions intact. No scleral icterus. No injection or drainage. left Eyebrow with stitches in place. NECK: Trachea midline. No lymphadenopathy. Supple and nontender. CARDIOVASCULAR: Regular rate and rhythm without murmurs, gallops, or rubs. RESPIRATORY: Clear to auscultation. Breath sounds equal bilaterally but diminished. No wheezes, rales, or rhonchi. GASTROINTESTINAL: Abdomen soft, non-tender, nondistended. No hepato-splenomegaly , or guarding. MUSCULOSKELETAL: Extremities without clubbing, cyanosis, or edema. No joint tenderness, effusion, or edema noted. NEUROLOGICAL: Awake and alert oriented x 3 PSYCHIATRIC: good mood. Hospital Course This is a pleasant 56 y/o Male with status post CABG on 04/18/17 he has CAD, Anxiety disorder, DM II, Hypertension, Hyperlipidemia Bilateral Pulmonary emboli (September 2016). Preliminary Pulmonary function test results performed on on 04/14 indicated the presence of mild to moderate obstructive disease and moderate restrictive disease. Discharged on 04/22/17 to [facility] for rehabilitation services. On the evening of 04/26/17 he suffered a fall in which his head struck a door and then the floor. His laceration was above his left eye was significant enough for him to be transported to [facility] for suturing. He was returned to [facility]. On the morning of 04/27/17 Mr. Julio was reported to be confused, with oxygen saturation reported to be in the 80's. He was returned to [facility] and was noted to be confused and hypoxic. He was placed on oxygen by nasal cannula. Labs drawn indicated elevated liver enzymes (AST 892, ALT 562, Alk Phos 262) BNP 499, Blood glucose 169 and urine glucose 1000. Chest xray was negative for pneumatothorax or consolidation. 04/28: Patient seen in his bedroom, no nausea, vomit or diarrhea and he is alert and oriented x 3, yesterday after discuss with ER specialist was considered the possibility of CHF he has low BNP, then also had some increased Cardiac enzymes both results may be related to his recent Cardiac Surgery, knowing that he has acute renal injury was given some IV fluids, after discuss with nurse late in the afternoon was considered to perform a new BMP and BNP, his liver function was not improving yesterday afternoon, the patient is asymptomatic, initially given in ER Lasix IV then started on IV fluids thinking that the patient may need some IV fluids, at this time I am waiting for his new laboratory for the morning, he is been sleeping, Consulted his Primary Cardiothoracic Surgeon and Cardiology for follow up purposes but I think the patient has a good Post Operative course. His BNP was increasing yesterday afternoon so his IV fluids were held. at this time stable no complaint, his lungs are clean. 04/29: seen in his bedroom asking to go home, stable already seen by Cardiology and Cardiothoracic surgery, transfused yesterday and okay to discharge tomorrow he is improving his condition, he has Narcotic dependence will give him small amount of Narcotics but this was the reason for the patient coming to ER with status post fall, too much Pain medicine. 04/30: Seen in his bedroom stable patient, asked for new CMP to re evaluate his Liver Function, discussed with nurse Miss De Los Santos as per Physical Therapy okay to go home on [facility] for PT and Skilled nurse he has already a walker, Assessment and Plan Mr. Julio is 56 yo, with history of 3 vessel CABG (performed 04/18/17 ), Coronary artery disease, Anxiety, Acid Reflux, DM II, Hypertension, hyperlipidemia, NSTEMI and Bilateral Pulmonary emboli (September 2016). Preliminary Pulmonary function test results performed on on 04/14 indicated the presence of mild to moderate obstructive disease and moderate restrictive disease. Mr. Julio underwent his CABG at [facility] and was discharged on 04/22/17 to [facility] for rehabilitation services. On the evening of 04/26/17 he suffered a fall in which his head struck a door and then the floor. His laceration was above his left eye was significant enough for him to be transported to [facility] for suturing. He was returned to [facility]. On the morning of 04/27/17 Mr. Julio was reported to be confused, with oxygen saturation reported to be in the 80's. He was returned to [facility] and was noted to be confused and hypoxic. He was placed on oxygen by nasal cannula. Labs drawn indicated elevated liver enzymes (AST 892, ALT 562, Alk Phos 262) BNP 499, Blood glucose 169 and urine glucose 1000. Chest xray was negative for pneumothorax or consolidation. 1. Encephalopathy probable related to Narcotic abuse, and dependency, Improved. had mild increase in ammonia level to 36. he is having daily BMs. 2. Acute Renal Injury Improved. 3. Elevated BNP, probable secondary to recent procedure now stable and asymptomatic. 4. CAD status post CABG continue Oxygen, seen by Cardiology and Cardiothoracic surgery 5. CHF probable exacerbation EF 35-40%. his last Echocardiogram was not good quality due to poor visualization but this no need for further tests. 6. DM II continue sliding scale, ADA diet, held Metformin, mild uncontrol adjusted insulin. 7. Obstructive/restrictive airway disease -Duonebs as needed -Guaifenesin ER 600 mg BID 8. Hypertension controlled. 9. Hyperkalemia Improved he receive Kayexalate. Improved. 10. Chronic pain syndrome and narcotic dependence on low dose Narcotics DVT prophylaxis: -SCD's -Physical Therapy. Discussed with patient and nurse Miss De Los Santos will follow CMP and if Hepatic profile improving okay to discharge Home. Discharge Planning Discharge Home now. Pt Condition on Discharge: Good Discharge Disposition: Discharge Home Discharge Time: <= 30 minutes Discharge Instructions DIET: Follow Instructions for: Heart Healthy Diet, Diabetic Diet Activities you can perform: Regular-No Restrictions Tim Grubbs MD Apr 30, 2017 17:34
--- NOTE | 2017-05-01 12:39 | HHI.FF ---
Face to Face Verification Diagnosis: (1) Acute hypoxemic respiratory failure (2) S/P CABG (coronary artery bypass graft) (3) S/P CABG x 3 Physical Therapy Order: Evaluate and Treat Home Health Nursing Order: Signs/symptoms of disease process Medication education-adverse effect Wound care and dressing changes Nursing assessment with vital signs Instructions: Incentive spirometry Q1 hr x 10, while awake, also use acapella device hourly whole awake Sternal Breast Bone Precautions: NO pushing or pulling, ( pt must use sternal pillow to support chest with all activities and with coughing ( takes up to 3 months breast bone to heal ) All females to wear sternal bra , launder as needed Daily incision care: ok to shower daily, no tub bath. Wash all incisions with liquid dial soap, clean wash cloth to each site, rinse and pat dry. Observe for any signs of infection, such as drainage which is dark yellow, sampson, green or foul smelling. Immediately report to the surgeon any drainage from the chest incision, or legs, and for any abnormal drainage from the chest tube sites. Notify surgeon if any temp >101.5 degrees F. When specialty dressing removed/ or if you do not have one, continue to shower daily as above, then rinse and pat incision dry and paint with betadine daily x 5 days. Allow steri strips to fall off if you have any. Avoid lotions, creams, salves, oils, etc. for the first month For Dr. Falcon patients , please obtain CBC, BMP, PA & Lat CXR in 2 weeks, results to Dr. Falcon ( prescription will be given) ( ) (Tele: [phone]) F/U appointment: as per [place] instructions: PCP in 2 weeks, CV surgeon 2 weeks, Stemming Machine Operator 3-4 weeks For any questions regarding incisions/ dressing / meds / post op care or above Symptoms, Saturday 8am-5pm Heart & Vascular Surgery Office ( Dr. Carrington & Dr. Falcon), After Hours / Nights (5pm -8am) Weekends and Holidays Please call [facility] Card[facility] Unit (C[facility]) Charge Nurse I have seen patient Vinicio Julio on 05/01/17. My clinical findings support the need for the requested home health care services because: Patient has SOB Deconditioned w/ increased weakness I certify that my clinical findings support that this patient is homebound because: Post-op weakness ASHANTI POZO May 01, 2017 12:39
== END 2017-04-30 18:09 | disposition home or self-care (01) | DRG 91 ==
LOC: NEPC 11:07 → NEDA 14:24 → N06B 15:35 → HCIS 04-28 05:28
PROVIDERS: ADMIT Internal Medicine; ATTEND Internal Medicine
PROC: 30233N1 Transfusion of Nonautologous Red Blood Cells into Peripheral Vein, Percutaneous Approach (ICD-10-PCS; principal; 2017-04-28)
DX: G92 Toxic encephalopathy (principal); J96.01 Acute respiratory failure with hypoxia; N17.9 Acute kidney failure, unspecified; I50.9 Heart failure, unspecified; E87.5 Hyperkalemia; F11.20 Opioid dependence, uncomplicated; J44.1 Chronic obstructive pulmonary disease with (acute) exacerbation; T40.605A Adverse effect of unspecified narcotics, initial encounter; Z99.81 Dependence on supplemental oxygen; I25.10 Atherosclerotic heart disease of native coronary artery without angina pectoris; Z95.1 Presence of aortocoronary bypass graft; E11.9 Type 2 diabetes mellitus without complications; Z79.84 Long term (current) use of oral hypoglycemic drugs; G89.4 Chronic pain syndrome; I10 Essential (primary) hypertension; Z91.81 History of falling; Z86.711 Personal history of pulmonary embolism; F41.9 Anxiety disorder, unspecified; D64.9 Anemia, unspecified; I25.2 Old myocardial infarction; E78.5 Hyperlipidemia, unspecified; Z87.891 Personal history of nicotine dependence
CPT/HCPCS: 36430; 71010; 80053; 81001; 82140; 82550; 82948; 83880; 84484; 85025; 86850; 86900; 86901; 86920; 93005; 94150; 94640; 94664; 96374; J1644; J1940; P9016

== ENCOUNTER 2017-12-12 12:42 | Emergency (ER) | payer OTHER ==
[~2017-12-12] VITALS: Ht 177.8 cm; Wt 100.0 kg
[~2017-12-12 12:42] MED LIST changes: +ASPI-516 CHEW; -ASPI81CH CHEW; -DEXT15LI10 PO; +FERR325T18 PO; -FERR325T8 PO; -FURO1TAB60 PO; +FURO1TAB62 PO; -MAGN400T2 PO; -OXYC-395 PO; +OXYC1CAP PO; -POTA-163 PO; -PROT40TA PO
[2017-12-12] MEDS ORDERED: IOHEXOL 350 MG/ML 10 ML VIAL (for RAD DIAG) IVCONTRAST ONE (12:43)
[2017-12-12 12:52] VITALS: BP 110/75; PULSE 98; RESP 20; TEMP 97.9; O2SAT 97
[2017-12-12 13:33] VITALS: BP 164/78; PULSE 95; RESP 14; O2SAT 97
[2017-12-12] MEDS ORDERED: SODIUM CHLORIDE 0.9% FLUSH 10 ML FLUSH IVF PRN (13:45)
[2017-12-12] MEDS ORDERED: DOXE25CA2 PO (13:45)
[2017-12-12] MEDS ORDERED: ATOR40TA16 PO (13:45)
[2017-12-12] MEDS ORDERED: XARE20TA PO (13:45)
[2017-12-12] MEDS ORDERED: HYDROmorphone HCL PF 1 MG/ML VIAL IV PUSH ONE (13:45)
[2017-12-12] MEDS ORDERED: INSU1INJ18 SQ (13:45)
[2017-12-12] MEDS ORDERED: SODIUM CHLORID 0.9% 500 ML INJ 500 ML IV ONE (13:45)
[2017-12-12] MEDS ORDERED: ONDANSETRON HCL 4 MG/2 ML VIAL IV PUSH ONE (13:45)
[2017-12-12] MEDS ORDERED: MAGN400T2 PO (13:45)
[2017-12-12] MEDS ORDERED: METO1TAB42 PO (13:45)
[2017-12-12] MEDS ORDERED: LOSA25TA PO (13:45)
[2017-12-12] MEDS ORDERED: EMPA1TAB PO (13:45)
--- NOTE | 2017-12-12 13:47 | PD ---
HPI Chief Complaint: Fall Time Seen by Provider: 13:33 Travel History International Travel<30 days: No Contact w/Intl Traveler<30days: No Traveled to known affect area: No History of Present Illness HPI 56-year-old male presents to the emergency department for evaluation after he fell yesterday around 10 AM. He states he fell approximately 7 feet from a ladder. He states he landed on his back. He is unsure if he has his head. He denies loss of consciousness. His main complaint is lower abdominal and lower back pain. However, he also reports neck pain and some chest wall pain. The patient is on Xarelto. Patient has a history of three-vessel CABG, CAD, anxiety , DM II, hypertension, hyperlipidemia, bilateral pulmonary embolism, CHF. Patient states that he felt the pain would improve on its own, but he is having worsening pain today. Pain is currently 10/10, worse with ambulation and movement. No alleviating factors. Moderate severity. PFSH Past Medical History Hx Anticoagulant Therapy: Yes Asthma: No Blood Disorders: No Anxiety: Yes Depression: No Heart Rhythm Problems: No Cancer: No Cardiovascular Problems: Yes High Cholesterol: Yes Chemotherapy: No Chest Pain: Yes Congestive Heart Failure: No COPD: Yes Cerebrovascular Accident: Yes (2010) Diabetes: Yes (insulin dependent) Patient Takes Glucophage: No Diminished Hearing: Yes ([facility], hearing aids at home) Endocrine: Yes Gastrointestinal Disorders: Yes GERD: Yes Genitourinary: No Hypertension: Yes Immune Disorder: No Implanted Vascular Access Dvce: No Musculoskeletal: No Neurologic: Yes Psychiatric: Yes Reproductive: No Respiratory: Yes Pneumonia: Yes Radiation Therapy: No Shingles: Yes Sleep Apnea: No Thyroid Disease: No Past Surgical History Abdominal Surgery: No Cardiac Surgery: Yes (CABG X 3) Ear Surgery: No Endocrine Surgery: No Eye Surgery: Yes Genitourinary Surgery: No Gynecologic Surgery: No Neurologic Surgery: No Oral Surgery: Yes Thoracic Surgery: No Other Surgery: Yes (MULTIPLE ORTHOPEDIC SX'S) Social History Alcohol Use: No (QUIT 05/2016) Tobacco Use: No Substance Use: No Allergies-Medications (Allergen,Severity, Reaction): Coded Allergies: morphine (Unverified Allergy, Mild, 12/12/17) Reported Meds & Prescriptions Reported Meds & Active Scripts Active Symbicort Inh (Budesonide/Formoterol Fumarate) 160-4.5 Mcg/Act Aero 1 Puff INH Q12HR B-12 (Cyanocobalamin) 2,000 Mcg Tab 2,000 Mcg PO DAILY Aspirin 81 Mg Chew 81 Mg CHEW DAILY Metformin (Metformin HCl) 1,000 Mg Tab 1,000 Mg PO BIDPC With meals Reported Xarelto (Rivaroxaban) 20 Mg Tab 20 Mg PO DAILY Metoprolol Succinate ER 24 HR (Metoprolol Succinate) 25 Mg Tab 25 Mg PO DAILY Magnesium Oxide 400 Mg Tab 400 Mg PO BID Losartan (Losartan Potassium) 25 Mg Tab 25 Mg PO DAILY Basaglar Kwikpen (Insulin Glargine) 100 Unit/Ml Pen 23 Units SQ DAILY Jardiance (Empagliflozin) 10 Mg Tab 10 Mg PO DAILY Doxepin (Doxepin HCl) 25 Mg Cap 10 Mg PO HS Atorvastatin (Atorvastatin Calcium) 40 Mg Tab 40 Mg PO HS Review of Systems Except as stated in HPI: all other systems reviewed are Neg Physical Exam Narrative GENERAL: Well-nourished, well-developed male patient, afebrile. SKIN: Focused skin assessment warm/dry. No lacerations or abrasions. HEAD: Normocephalic. Atraumatic EYES: No scleral icterus. No injection or drainage. PERRLA. ENT: Mucosa pink and moist. No erythema or exudates. No uvular edema. No uvular , palatal, or tonsillar deviation. Airway patent. Nasal turbinates appear normal without nasal blood, purulent drainage or septal hematoma. Bilateral tympanic membranes are clear without erythema or perforation. NECK: Supple, trachea midline. No JVD or lymphadenopathy. CARDIOVASCULAR: Regular rate and rhythm without murmurs, gallops, or rubs. RESPIRATORY: Breath sounds equal bilaterally. No accessory muscle use. Lungs sounds are clear to auscultation. GASTROINTESTINAL: Abdomen soft and nondistended. Patient has right lower quadrant tenderness to palpation. MUSCULOSKELETAL: No cyanosis, or edema. Patient has left chest wall pain to palpation. BACK: No obvious deformity. No CVA tenderness. Patient has tenderness to palpation over midline cervical, thoracic, lumbar spine. Data Data Last Documented VS Vital Signs Date Time Temp Pulse Resp B/P (MAP) Pulse Ox O2 Delivery O2 Flow Rate FiO2 12/12/17 16:14 89 15 109/65 (80) 96 Room Air 12/12/17 12:52 97.9 Orders Orders Complete Blood Count With Diff (12/12/17 13:42) Prothrombin Time / Inr (Pt) (12/12/17 13:42) Act Partial Throm Time (Ptt) (12/12/17 13:42) Type And Screen (12/12/17 13:42) Ct Brain W/O Iv Contrast(Rout) (12/12/17 13:42) Ct Cerv Spine W/O Contrast (12/12/17 13:42) Ct Abd/Pel W Iv Contrast(Rout) (12/12/17 13:42) Ct Thorax/ Chest W Iv Contrast (12/12/17 13:42) Ct Thor Spine W Iv Contrast (12/12/17 13:42) Ct Lumb Spine W Iv Contrast (12/12/17 13:42) Iv Access Insert/Monitor (12/12/17 13:42) Ecg Monitoring (12/12/17 13:42) Oximetry (12/12/17 13:42) Oxygen Administration (12/12/17 13:42) Sodium Chloride 0.9% Flush (Ns Flush) (12/12/17 13:45) Ondansetron Inj (Zofran Inj) (12/12/17 13:45) Sodium Chlorid 0.9% 500 Ml Inj (Ns 500 M (12/12/17 13:45) Hydromorphone Pf Inj (Dilaudid Pf Inj) (12/12/17 13:45) Comprehensive Metabolic Panel (12/12/17 13:42) Apply Cervical Collar (12/12/17 13:47) Hydromorphone Pf Inj (Dilaudid Pf Inj) (12/12/17 14:00) Iohexol 350 Inj (Omnipaque 350 Inj) (12/12/17 12:43) Splint Or Brace Apply/Monitor (12/12/17 17:01) Labs Laboratory Tests Test 12/12/17 14:00 White Blood Count 7.1 TH/MM3 Red Blood Count 5.15 MIL/MM3 Hemoglobin 16.5 GM/DL Hematocrit 49.1 % Mean Corpuscular Volume 95.4 FL Mean Corpuscular Hemoglobin 32.0 PG Mean Corpuscular Hemoglobin Concent 33.6 % Red Cell Distribution Width 13.4 % Platelet Count 142 TH/MM3 Mean Platelet Volume 9.2 FL Neutrophils (%) (Auto) 62.5 % Lymphocytes (%) (Auto) 21.7 % Monocytes (%) (Auto) 11.5 % Eosinophils (%) (Auto) 3.4 % Basophils (%) (Auto) 0.9 % Neutrophils # (Auto) 4.4 TH/MM3 Lymphocytes # (Auto) 1.5 TH/MM3 Monocytes # (Auto) 0.8 TH/MM3 Eosinophils # (Auto) 0.2 TH/MM3 Basophils # (Auto) 0.1 TH/MM3 CBC Comment DIFF FINAL Differential Comment Prothrombin Time 12.2 SEC Prothromb Time International Ratio 1.2 RATIO Activated Partial Thromboplast Time 33.8 SEC Blood Urea Nitrogen 17 MG/DL Creatinine 1.34 MG/DL Random Glucose 171 MG/DL Total Protein 7.9 GM/DL Albumin 3.9 GM/DL Calcium Level 9.3 MG/DL Alkaline Phosphatase 106 U/L Aspartate Amino Transf (AST/SGOT) 14 U/L Alanine Aminotransferase (ALT/SGPT) 21 U/L Total Bilirubin 1.0 MG/DL Sodium Level 140 MEQ/L Potassium Level 4.7 MEQ/L Chloride Level 103 MEQ/L Carbon Dioxide Level 25.7 MEQ/L Anion Gap 11 MEQ/L Estimat Glomerular Filtration Rate 55 ML/MIN [facility] Medical Decision Making Medical Screen Exam Complete: Yes Emergency Medical Condition: Yes Medical Record Reviewed: Yes Interpretation(s) CT brain - CONCLUSION: 1. No acute intracranial abnormality. 2. Chronic right maxillary sinusitis. CT thorax/chest - CONCLUSION: 1. No intrathoracic trauma noted. 2. Coronary artery calcifications. 3. Cholelithiasis. CT cervical spine CONCLUSION: 1. No fracture is identified. 2. There are central disc protrusions at C4-C5 and C5-C6 of uncertain chronicity. 3. Multilevel degenerative change consisting mostly of facet arthrosis with a right neural foraminal stenosis at C5-C6. CT thoracic spine CONCLUSION: Mild degenerative change of the thoracic spine. No acute thoracic spine abnormality is identified. CT lumbar spine CONCLUSION: 1. Mild height loss of the superior endplate of L1. Given the appearance this could be chronic and related to degenerative disc disease but a subtle superior endplate fracture could have a similar appearance. If the patient is experiencing pain near this level this could be further characterize with lumbar spine MRI. 2. Otherwise, degenerative changes at multiple levels, as above, without any other acute finding identified. No canal stenosis is visualized. CT abdomen/pelvis - CONCLUSION: 1. No acute intra-abdominal trauma. 2. Uncomplicated colonic diverticulosis. 3. Cholelithiasis. 4. Stable tiny left renal cyst. 5. Degenerative changes and scoliosis of the thoraco-lumbar spine. Differential Diagnosis Intracranial hemorrhage versus closed head injury versus strain versus fracture versus contusion versus intra-abdominal injury versus rib fracture versus or contusion versus pneumothorax versus hemothorax Narrative Course 56-year-old male presents to the emergency department for evaluation after a 7 foot fall from a ladder yesterday morning. IV access established. CBC, CMP, PTT, PT/INR, type and screen are ordered and pending. CT the brain, CT the cervical spine, CT abdomen/pelvis, CT thorax/chest, CT thoracic spine, CT lumbar spine are ordered and pending. Patient is given normal saline 500 bolus , Dilaudid 0.5 mg IV, Zofran 4 mg IV. CBC shows no acute abnormality. CMP shows no acute abnormality. Coags show no acute abnormality. CT of the brain shows no acute intracranial abnormality. CT of the cervical spine shows no acute fracture. CT abdomen/pelvis shows no acute intra-abdominal trauma. CT thorax/chest shows no intrathoracic trauma noted. CT thoracic spine shows mild degenerative changes of the thoracic spine , no acute thoracic spine abnormality. CT lumbar spine shows mild height loss of the superior endplate of L1, given the appearance this could be chronic and related degenerative disc disease but a septal superior endplate fracture could have a similar appearance. I discussed L spine results with my attending physician, Dr. Le, who recommends I contact neurosurg. Dr. Carrington is paged. I spoke to Dr. Carrington who states patient can wear brace and follow up with his primary care physician. Upon reevaluation, patient informs me that he has a small cut to his right volar thumb. On exam, the patient has a 1 cm superficial laceration. This is not amenable to sutures due to age of the wound as well as it is minor. Patient is instructed to wear brace and follow up with his primary care physician. He'll be given a short-term prescription for [place] and Robaxin. He is to complete good wound care. He states he is unsure of his tetanus immunization is up-to-date. This is updated. Patient is return for any acute worsening of symptoms. He will also be discharged with a short term RX for Keflex for prophylaxis. Diagnosis Primary Impression: Fracture lumbar vertebra-closed Qualified Codes: S32.018A - Other fracture of first lumbar vertebra, initial encounter for closed fracture Referrals: Primary Care Physician 2 days Patient Instructions: General Instructions, Narcotic given in the ED, Vertebral Compression Fracture (ED) Departure Forms: Tests/Procedures, Work Release Enter return to work date: Dec 15, 2017 Additional Instructions: Take antibiotic as directed until gone. Clean wound twice daily with soap and water and apply [id number] antibiotic ointment. Keep clean and dry. Take Tylenol [id number] as needed for [id number] pain. Take [place] as directed as he had for moderate to severe pain. Caution this can make you drowsy so do not drive after taking. Take Robaxin as directed as needed. Follow-up with your primary care physician. Return to the emergency department for any acute worsening of symptoms. Med/Other Pt SpecificInfo: Prescription(s) given Scripts Cephalexin (Keflex) 500 Mg Cap 500 MG PO Q8H for Infection for 7 Days, #21 CAP 0 Refills Prov: Nelda Verdin 12/12/17 Methocarbamol (Robaxin) 750 Mg Tab 750 MG PO TID Y for MUSCLE SPASM, #21 TAB 0 Refills Prov: Nelda Verdin 12/12/17 Hydrocodone-Acetaminophen ([place]) 5 Mg-325 Mg Tab 1 TAB PO Q6H Y for PAIN, #12 TAB 0 Refills Prov: Nelda Verdin 12/12/17 Disposition: 01 DISCHARGE HOME Condition: Stable Nelda Verdin Dec 12, 2017 13:47
[2017-12-12] MEDS ORDERED: HYDROmorphone HCL PF 2 MG/ML VIAL IV PUSH ONE (14:00)
[2017-12-12 14:17] LABS: AUTOMATED NEUTROPHIL # 4.4 TH/MM3 (1.8-7.7); BASOPHIL # 0.1 TH/MM3 (0-0.2); BASOPHIL % 0.9 % (0.0-2.0); EOSINOPHIL # 0.2 TH/MM3 (0-0.4); EOSINOPHIL % 3.4 % (0.0-4.0); HEMATOCRIT 49.1 % (39.0-51.0); HEMOGLOBIN 16.5 GM/DL (13.0-17.0); LYMPH % 21.7 % (9.0-44.0); LYMPHOCYTE # 1.5 TH/MM3 (1.0-4.8); MEAN CELL VOLUME 95.4 FL (80.0-100.0); MEAN CORPUSCULAR HGB CONC 33.6 % (32.0-36.0); MEAN PLATELET VOLUME 9.2 FL (7.0-11.0); MONO % 11.5 % (0.0-8.0); MONOCYTE # 0.8 TH/MM3 (0-0.9); NEUT % 62.5 % (16.0-70.0); PLATELET COUNT 142 TH/MM3 (150-450); RED BLOOD COUNT 5.15 MIL/MM3 (4.50-5.90); RED CELL DISTRIBUTION WIDTH 13.4 % (11.6-17.2); WHITE BLOOD COUNT 7.1 TH/MM3 (4.0-11.0)
[2017-12-12 14:36] LABS: ALBUMIN 3.9 GM/DL (3.4-5.0); ALT (GPT) 21 U/L (12-78); AST (GOT) 14 U/L (15-37); BICARBONATE 25.7 MEQ/L (21.0-32.0); BLOOD UREA NITROGEN 17 MG/DL (7-18); CALCIUM 9.3 MG/DL (8.5-10.1); CHLORIDE 103 MEQ/L (98-107); CREATININE 1.34 MG/DL (0.60-1.30); GLOMERULAR FILTRATION RATE 55 ML/MIN (>89); GLUCOSE,RANDOM 171 MG/DL (74-106); SODIUM (NA) 140 MEQ/L (136-145)
[2017-12-12 14:39] LABS: ALKALINE PHOSPHATASE 106 U/L (45-117); TOTAL PROTEIN 7.9 GM/DL (6.4-8.2)
[2017-12-12 14:43] LABS: INTERNATIONAL NORMALIZED RATIO 1.2 RATIO; PROTHROMBIN TIME - PATIENT 12.2 SEC (9.8-11.6)
--- NOTE | 2017-12-12 15:15 | RADRPT ---
EXAM DATE/TIME: 12/12/2017 14:52 [facility] COMPARISON: CT BRAIN W/O CONTRAST, April 26, 2017, 9:38. INDICATIONS : Slipped and fell from ladder yesterday. RADIATION DOSE: 56.35 CTDIvol (mGy) MEDICAL HISTORY : Cerebrovascular disease. Cardiovascular disease Chronic obstructive pulmonary disease.Hypertension, G astroesophageal reflux disease, diabetes. SURGICAL HISTORY : None. ENCOUNTER: Initial ACUITY: 2 days PAIN SCALE: 7/10 LOCATION: cranial TECHNIQUE: Multiple contiguous axial images were obtained of the head. Using automated exposure control and adj ustment of the mA and/or kV according to patient size, radiation dose was kept as low as reasonably a chievable to obtain optimal diagnostic quality images. DICOM format image data is available electro nically for review and comparison. FINDINGS: CEREBRUM: The ventricles are normal for age. No evidence of midline shift, mass lesion, hemorrhage or acute in farction. No extra-axial fluid collections are seen. POSTERIOR FOSSA: The cerebellum and brainstem are intact. The 4th ventricle is midline. The cerebellopontine angle i s unremarkable. EXTRACRANIAL: The visualized portion of the orbits is intact. Chronic right maxillary sinusitis is noted. SKULL: The calvaria is intact. No evidence of skull fracture. CONCLUSION: 1. No acute intracranial abnormality. 2. Chronic right maxillary sinusitis. Benny Myers MD on December 12, 2017 at 15:10 Board Certified Radiologist. This report was verified electronically.
--- NOTE | 2017-12-12 15:31 | RADRPT ---
EXAM DATE/TIME: 12/12/2017 14:52 [facility] COMPARISON: No previous studies available for comparison. INDICATIONS : Trauma; fall from roof yesterday. IV CONTRAST: 96 cc Omnipaque 350 (iohexol) IV ; Cumulative dose for multiple exams. RADIATION DOSE: 9.9 CTDIvol (mGy) ; Combined studies - Thorax/Abdomen/Pelvis MEDICAL HISTORY : Chronic obstructive pulmonary disease. Cardiovascular disease Hypertension.Stroke, Diabetes SURGICAL HISTORY : Left clavicle fracture repair. ENCOUNTER: Initial ACUITY: 1 day PAIN SCALE: 3/10 LOCATION: Bilateral chest TECHNIQUE: Volumetric scanning of the chest was performed. Using automated exposure control and adjustment of t he mA and/or kV according to patient size, radiation dose was kept as low as reasonably achievable to obtain optimal diagnostic quality images. DICOM format image data is available electronically for review and comparison. Follow-up recommendations for detected pulmonary nodules are based at a minimum on nodule size and pa tient risk factors according to Fleischner Society Guidelines. FINDINGS: LUNGS: There is no consolidation or pneumothorax. No concerning pulmonary nodule is visualized. PLEURA: There is no pleural thickening or pleural effusion. MEDIASTINUM: The heart and great vessels demonstrate no acute abnormality. There is no mediastinal or hilar lymph adenopathy. Coronary artery calcifications are noted. AXILLAE: Within normal limits. No lymphadenopathy. SKELETAL: Degenerative changes are noted throughout the thoracic spine. MISCELLANEOUS: The visualized upper abdominal organs demonstrate no acute abnormality. Cholelithiasis is noted. CONCLUSION: 1. No intrathoracic trauma noted. 2. Coronary artery calcifications. 3. Cholelithiasis. Benny Myers MD on December 12, 2017 at 15:25 Board Certified Radiologist. This report was verified electronically.
--- NOTE | 2017-12-12 15:34 | RADRPT ---
EXAM DATE/TIME: 12/12/2017 14:52 [facility] COMPARISON: No previous studies available for comparison. INDICATIONS : Slipped and fell from ladder yesterday. RADIATION DOSE: 21.83 CTDIvol (mGy) MEDICAL HISTORY : Cerebrovascular disease. Cardiovascular disease Chronic obstructive pulmonary disease.Hypertension, G astroesophageal reflux disease, diabetes. SURGICAL HISTORY : None. ENCOUNTER: Initial ACUITY: 2 days PAIN SCALE: 7/10 LOCATION: neck TECHNIQUE: Volumetric scanning of the cervical spine was performed. Multiplanar reconstructions in the sagittal, coronal and oblique axial planes were performed. Using automated exposure control and adjustment o f the mA and/or kV according to patient size, radiation dose was kept as low as reasonably achievable to obtain optimal diagnostic quality images. DICOM format image data is available electronically f or review and comparison. FINDINGS: There is normal sagittal spine alignment of the cervical spine. No anterolisthesis or retrolisthesis is present. The atlantoaxial relationship is within normal limits. There is no prevertebral soft tiss ue swelling present. No fracture or dislocation is identified. There is a small central disc protrusi on at C4-C5 and C5-C6. There is fusion of the facet joints on the left at C2-C3. There is moderate to severe right facet arthrosis at C2-C3 through C5-C6. Right neural foraminal stenosis is present at C 5-C6. The visualized portions of the posterior fossa, paraspinous soft tissues, and upper lung zones demons trate no acute abnormality. CONCLUSION: 1. No fracture is identified. 2. There are central disc protrusions at C4-C5 and C5-C6 of uncertain chronicity. 3. Multilevel degenerative change consisting mostly of facet arthrosis with a right neural foraminal stenosis at C5-C6. 1. Guerrero Alva MD on December 12, 2017 at 15:27 Board Certified Radiologist. This report was verified electronically.
--- NOTE | 2017-12-12 15:35 | RADRPT ---
EXAM DATE/TIME: 12/12/2017 14:52 [facility] COMPARISON: CT ABDOMEN & PELVIS W CONTRAST, November 15, 2016, 16:40. INDICATIONS : Trauma; fall from roof yesterday. IV CONTRAST: 96 cc Omnipaque 350 (iohexol) IV ; Cumulative dose for multiple exams. ORAL CONTRAST: No oral contrast ingested. RADIATION DOSE: 9.9 CTDIvol (mGy) ; Combined studies - Thorax/Abdomen/Pelvis MEDICAL HISTORY : Gastroesophageal reflux disease. Cardiovascular disease Stroke.Hypertension, COPD, diabetes. SURGICAL HISTORY : None. ENCOUNTER: Initial ACUITY: 1 day PAIN SCALE: 4/10 LOCATION: Bilateral pelvis TECHNIQUE: Volumetric scanning of the abdomen and pelvis was performed. Using automated exposure control and ad justment of the mA and/or kV according to patient size, radiation dose was kept as low as reasonably achievable to obtain optimal diagnostic quality images. DICOM format image data is available electro nically for review and comparison. FINDINGS: LOWER LUNGS: The visualized lower lungs are clear. LIVER: Homogeneous density without lesion. There is no dilation of the biliary tree. Cholelithiasis is note d. SPLEEN: Normal size without lesion. PANCREAS: Within normal limits. KIDNEYS: Normal in size and shape. There is a tiny stable left renal cyst. There is no mass, stone or hydrone phrosis. ADRENAL GLANDS: Within normal limits. VASCULAR: There is no aortic aneurysm. BOWEL/MESENTERY: Uncomplicated colonic diverticulosis is noted. ABDOMINAL WALL: Within normal limits. RETROPERITONEUM: There is no lymphadenopathy. BLADDER: No wall thickening or mass. REPRODUCTIVE: Within normal limits. INGUINAL: There is no lymphadenopathy or hernia. MUSCULOSKELETAL: Degenerative changes and scoliosis of the thoraco-lumbar spine are noted. CONCLUSION: 1. No acute intra-abdominal trauma. 2. Uncomplicated colonic diverticulosis. 3. Cholelithiasis. 4. Stable tiny left renal cyst. 5. Degenerative changes and scoliosis of the thoraco-lumbar spine. Benny Myers MD on December 12, 2017 at 15:28 Board Certified Radiologist. This report was verified electronically.
--- NOTE | 2017-12-12 16:06 | RADRPT ---
EXAM DATE/TIME: 12/12/2017 14:52 [facility] COMPARISON: No previous studies available for comparison. INDICATIONS : Fall from roof yesterday, back pain. IV CONTRAST: 96 cc Omnipaque 350 (iohexol) IV ; Cumulative dose for multiple exams. RADIATION DOSE: ; Reconstructed from previous dataset, no dose MEDICAL HISTORY : Stroke. Cardiovascular disease Gastroesophageal reflux disease.Hypertension, COPD, Diabetes. SURGICAL HISTORY : None. ENCOUNTER: Initial ACUITY: 2 days PAIN SCALE: 5/10 LOCATION: mid-back. TECHNIQUE: Volumetric scanning of the thoracic spine was performed. Multiplanar reconstructions in the sagittal , coronal and oblique axial planes were performed. Using automated exposure control and adjustment o f the mA and/or kV according to patient size, radiation dose was kept as low as reasonably achievable to obtain optimal diagnostic quality images. DICOM format image data is available electronically fo r review and comparison. FINDINGS: There is normal sagittal spinal alignment. Vertebral body height is maintained. No fracture or compre ssion deformity is present. No anterolisthesis or retrolisthesis is visualized. No disc herniation is appreciated and no canal stenosis is seen. There are small osteophytes anteriorly at multiple levels . The visualized surrounding structures demonstrate no acute finding. CONCLUSION: Mild degenerative change of the thoracic spine. No acute thoracic spine abnormality is identified. Guerrero Alva MD on December 12, 2017 at 16:00 Board Certified Radiologist. This report was verified electronically.
--- NOTE | 2017-12-12 16:12 | RADRPT ---
EXAM DATE/TIME: 12/12/2017 14:52 [facility] COMPARISON: No previous studies available for comparison. INDICATIONS : Fall from roof yesterday, lower back pain. IV CONTRAST: 96 cc Omnipaque 350 (iohexol) IV ; Cumulative dose for multiple exams. RADIATION DOSE: ; Reconstructed from previous dataset, no dose MEDICAL HISTORY : Gastroesophageal reflux disease. Diabetes mellitus type 2. Cardiovascular diseaseStroke, hypertension , COPD. SURGICAL HISTORY : None. ENCOUNTER: Initial ACUITY: 1 day PAIN SCALE: 9/10 LOCATION: Bilateral lower back/ coccyx TECHNIQUE: Volumetric scanning of the lumbar spine was performed. Multiplanar reconstructions in the sagittal, coronal and oblique axial planes were performed. Using automated exposure control and adjustment of the mA and/or kV according to patient size, radiation dose was kept as low as reasonably achievable t o obtain optimal diagnostic quality images. DICOM format image data is available electronically for review and comparison. FINDINGS: There is a subtle height loss at the superior endplate of L1. This may represent chronic change relat ed to degenerative disc disease but cannot definitely exclude a mild superior endplate fracture. Mini ining vertebral body heights are within normal limits. There are endplate osteophytes at multiple lev els. No anterolisthesis or retrolisthesis is present. L2-L3: Decreased disc height with vacuum disc. There is a mild diffuse disc bulge. No definite canal stenosis or neural foraminal narrowing is seen. L3-L4: There is a mild diffuse disc bulge. No spinal canal stenosis is present. There is mild neural foramin al narrowing bilaterally. L4 CONCLUSION: 1. Mild height loss of the superior endplate of L1. Given the appearance this could be chronic and re lated to degenerative disc disease but a subtle superior endplate fracture could have a similar appea abigail. If the patient is experiencing pain near this level this could be further characterize with [facility] spine MRI. 2. Otherwise, degenerative changes at multiple levels, as above, without any other acute finding iden tified. No canal stenosis is visualized. Guerrero Alva MD on December 12, 2017 at 16:04 Board Certified Radiologist. This report was verified electronically.
[2017-12-12 16:14] VITALS: BP 109/65; PULSE 89; RESP 15; O2SAT 96
[2017-12-12] MEDS ORDERED: ROBA750T PO (17:13)
[2017-12-12] MEDS ORDERED: NORC5TAB PO (17:13)
[2017-12-12] MEDS ORDERED: CEPH-460 PO (17:13)
[2017-12-12] MEDS ORDERED: TETANUS/DIPHTHERIA TOXOID ADULT 0.5 ML VIAL IM ONE (17:15)
[2017-12-12] MEDS ORDERED: ACETAMINOPHEN/HYDROcodone 325 MG/5 MG TAB PO ONE (17:15)
== END 2017-12-12 17:32 | disposition home or self-care (01) ==
LOC: NEPC 12:42
DX: S32.018A Other fracture of first lumbar vertebra, initial encounter for closed fracture (principal); S61.011A Laceration without foreign body of right thumb without damage to nail, initial encounter; R10.30 Lower abdominal pain, unspecified; R07.89 Other chest pain; M50.221 Other cervical disc displacement at C4-C5 level; M48.02 Spinal stenosis, cervical region; W11.XXXA Fall on and from ladder, initial encounter; Z23 Encounter for immunization; I11.0 Hypertensive heart disease with heart failure; I25.10 Atherosclerotic heart disease of native coronary artery without angina pectoris; I50.9 Heart failure, unspecified; E78.00 Pure hypercholesterolemia, unspecified; J44.9 Chronic obstructive pulmonary disease, unspecified; E11.9 Type 2 diabetes mellitus without complications; Z86.711 Personal history of pulmonary embolism; Z86.73 Personal history of transient ischemic attack (TIA), and cerebral infarction without residual deficits; Z95.1 Presence of aortocoronary bypass graft; Z88.5 Allergy status to narcotic agent; Z79.4 Long term (current) use of insulin; Z79.01 Long term (current) use of anticoagulants
CPT/HCPCS: 70450; 71260; 72125; 72129; 72132; 74177; 80053; 85025; 85610; 85730; 86850; 86900; 86901; 90471; 90714; 96361; 96374; 96375; 99284; J1170; J2405; J7040; L0484; Q9967; L0150